=== PATIENT | male | born 1940 | race Caucasian/White ===

== ENCOUNTER 2016-05-08 12:48 | Inpatient (IN) | payer MEDICARE ==
[~2016-05-08] VITALS: Ht 172.7 cm; Wt 66.2 kg
[~2016-05-08 12:48] MED LIST: ATOR10 PO; COUM5TAB PO; COUM7.5T PO; DILT120C9 PO; DRIS8000 PO; FLUT50SP; IRON28TA PO; LORA.5 PO; MINO10 PO; OMEGCAP21 PO; OXYC1SOL5 PO; PROS5TAB2 PO; SENITAB PO; TAMS0.4C67 PO; VITA400C70 PO
[2016-05-10] VITALS (7 sets, daily range): BP systolic 119–190; BP diastolic 53–85; PULSE 61–72; RESP 16–20; TEMP 97.6–98.3; O2SAT 93–97
[2016-05-10] MEDS ORDERED: SODIUM CHLOR 0.9% 1000 ML INJ 1,000 ML IV PRN ×3 (09:54)
[2016-05-10 09:58] LABS: BASOPHIL # 0.1 TH/MM3 (0-0.2); BASOPHIL % 0.6 % (0.0-2.0); EOSINOPHIL # 0.3 TH/MM3 (0-0.4); EOSINOPHIL % 2.5 % (0.0-4.0); HEMATOCRIT 25.3 % (39.0-51.0); HEMO FLAGS DIFF FINAL; LYMPHOCYTE # 0.9 TH/MM3 (1.0-4.8); MEAN CELL VOLUME 93.8 FL (80.0-100.0); MEAN CORPUSCULAR HEMOGLOBIN 32.5 PG (27.0-34.0); MEAN CORPUSCULAR HGB CONC 34.7 % (32.0-36.0); MONO % 10.8 % (0.0-8.0); NEUT % 77.1 % (16.0-70.0); PLATELET COUNT 369 TH/MM3 (150-450); RED CELL DISTRIBUTION WIDTH 14.1 % (11.6-17.2); WHITE BLOOD COUNT 10.4 TH/MM3 (4.0-11.0)
[2016-05-10] MEDS ORDERED: MANNITOL 12.5 GM/50 ML VIAL IV PRN (10:00)
[2016-05-10] MEDS ORDERED: ONDANSETRON HCL 4 MG/2 ML VIAL IV PRN (10:00)
[2016-05-10] MEDS ORDERED: ALBUMIN HUMAN 25% 25 GM/100 ML BAGP IV PRN (10:00)
[2016-05-10] MEDS ORDERED: ACETAMINOPHEN 325 MG TAB PO PRN (10:00)
[2016-05-10] MEDS ORDERED: SODIUM CHLORIDE 0.9% FLUSH 5 ML FLUSH IVF PRN ×2 (10:00→12:30)
[2016-05-10] MEDS ORDERED: diphenhydrAMINE HCL 25 MG CAP PO PRN (10:00)
[2016-05-10] MEDS ORDERED: NITROGLYCERIN 0.4 MG SL 25 TABS/BTL SL PRN (10:00)
[2016-05-10] MEDS ORDERED: cloNIDine HCL 0.1 MG TAB PO PRN (10:00)
[2016-05-10] MEDS ORDERED: HEPARIN SODIUM - IV 10,000 UNITS/10 ML VIAL IVF PRN ×2 (10:00→12:30)
[2016-05-10] MEDS ORDERED: GELATIN 12 MM/7 MM FOAM TOP PRN (10:00)
[2016-05-10 10:07] LABS: BICARBONATE 30.5 MEQ/L (21.0-32.0)
[2016-05-10 10:13] LABS: APTT (PATIENT) 28.2 SEC (24.3-30.1); INTERNATIONAL NORMALIZED RATIO 1.1 RATIO; PROTHROMBIN TIME - PATIENT 11.8 SEC (9.8-11.6)
[2016-05-10] MEDS: LISINOPRIL 20 MG TAB PO SCH ×2 (10:45→20:34)
[2016-05-10] MEDS: FINASTERIDE 5 MG TAB PO SCH (10:45)
[2016-05-10] MEDS: ATORVASTATIN 10 MG TAB PO SCH (10:45)
[2016-05-10] MEDS ORDERED: SODIUM CHLORIDE FLUSH PRN IVF (10:45)
[2016-05-10] MEDS: CHOLECALCIFEROL (VIT D3) 1000 UNIT TAB PO SCH (10:45)
[2016-05-10] MEDS: TAMSULOSIN HCL 0.4 MG CAP PO SCH (10:45)
--- NOTE | 2016-05-10 10:48 | PD.CONS ---
[facility] Service Nephrology Reason for Consult ESRD on dialysis. To convert from PD to HD Primary Care Physician Nikolai Carrasquillo M.D. History of Present Illness The patient is a 75 yo [place] male who is known to our services for ESRD. He has been on peritoneal dialysis for the past year and a half. He has has difficulties meeting clearances and has developed edema that has become refractory to Extraneal PD fluids. He has been counselled in great detail regarding his status and it has mutually agreed that he should be converted to hemodialysis. We are consulted for this conversion. Pending PC today with subsequent 1st session of HD today. The patient offers no complaints at this time. (Isis Herman) Past Family Social History Allergies: Coded Allergies: No Known Allergies (Verified , 01/13/16) Past Medical History End-stage renal disease failed PD and now converting to HD Hypertension Anemia renal disease. 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 Placement of a peritoneal dialysis catheter. Reported Medications Reported Meds & Active Scripts Active Lorazepam 0.5 Mg Tab 0.5 Mg PO Q8H PRN Oxycodone/Acetaminophen 5 mg/325 mg 5 mg/325 mg Tab 1 Tab PO Q6H PRN Reported Proscar (Finasteride) 5 Mg Tab 5 Mg PO DAILY Coumadin 7.5 mg (Warfarin Sodium) Warfarin Sodium 7.5 mg Tab 7.5 Mg PO MOWEFR@16 Loniten 10 Mg Tab (Minoxidil) 10 Mg Tab 5 Mg PO BID Vitamin E-400 (Vitamin E) 400 Unit Cap 400 Unit PO DAILY Iron (Ferrous Sulfate) 28 Mg Tab 28 Mg PO DAILY Flomax (Tamsulosin HCl) 0.4 Mg Cap 0.4 Mg PO DAILY Vitamin D (Ergocalciferol) 8,000 Mg/Ml Gabby 2,000 Units PO BID Senior Multivitamin Plus (Multiple Vitamins W/ Minerals) Plus Tab 1 Tab PO DAILY Hm [place]-3-6-9 Fatty Acid ([place]-3/[place]-6/[place]-9 Fatty Acids) Cap 1 PO TID Fluticasone Propionate (Nasal) 50 Mcg Spr Coumadin 5 mg (Warfarin Sodium) 5 Mg Tab 5 Mg PO SUTUTHSA Lipitor (Atorvastatin Calcium) 10 Mg Tab 10 Mg PO HS Diltiazem Hcl (Diltiazem HCl) 120 Mg Tab 120 Mg PO DAILY Active Ordered Medications Current Medications Medications (Trade) Dose Ordered Sig/Terra Route Start Time Stop Time Status Last Admin (NS 1000 ml Inj) 1,000 ml @ 0 mls/hr Q0M PRN IV 05/10/16 09:54 Heparin Sodium (Porcine) 8000 units 8,000 units UNSCH PRN IVF 05/10/16 10:00 Sodium Chloride 1,000 ml @ 200 mls/hr Q5H PRN IV 05/10/16 09:54 (NS 1000 ml Inj) 1,000 ml @ 0 mls/hr Q0M PRN IV 05/10/16 09:54 (Mannitol Inj) 12.5 gm UNSCH PRN IV 05/10/16 10:00 (Albumin 25% Inj) 25 gm UNSCH PRN IV 05/10/16 10:00 (NS Flush) 5 ml UNSCH PRN IVF 05/10/16 10:00 (Heparin Inj) UNSCH PRN .XX 05/10/16 10:00 (Gentamicin (Dialysis) Inj) 20 mg UNSCH PRN IV 05/10/16 10:00 (Zofran Inj) 4 mg UNSCH PRN IV 05/10/16 10:00 (Tylenol) 650 mg UNSCH PRN PO 05/10/16 10:00 (Benadryl) 25 mg UNSCH PRN PO 05/10/16 10:00 (Nitrostat Sl) 0.4 mg UNSCH PRN SL 05/10/16 10:00 (Catapres) 0.1 mg UNSCH PRN PO 05/10/16 10:00 (Gelfoam 12 Mm/7 Mm Top) 1 foam UNSCH PRN TOP 05/10/16 10:00 Family History Noncontributory Social History Lives at home with Non-smoker No EtOH No illicit drug use (Isis Herman) Physical Exam Vital Signs Vital Signs Date Time Temp Pulse Resp B/P Pulse Ox O2 Delivery O2 Flow Rate FiO2 05/10/16 08:00 97.7 61 19 182/83 96 Physical Exam GENERAL: Laying in bed. NAD SKIN: Warm and dry. HEAD: Atraumatic. Normocephalic. EYES: Pupils equal and round. No scleral icterus. No injection or drainage. ENT: No nasal bleeding or discharge. Mucous membranes pink and moist. NECK: Trachea midline. No JVD. CARDIOVASCULAR: Regular rate and rhythm. RESPIRATORY: No accessory muscle use. Clear to auscultation. Breath sounds equal bilaterally. GASTROINTESTINAL: Abdomen soft, non-tender, nondistended. Hepatic and splenic margins not palpable. MUSCULOSKELETAL: Extremities without clubbing, cyanosis. 2+ pitting edema BLE to knees. NEUROLOGICAL: Awake and alert. No obvious cranial nerve deficits. Normal speech. PSYCHIATRIC: Appropriate mood and affect; insight and judgment normal. Laboratory Laboratory Tests Test 05/10/16 09:21 White Blood Count 10.4 Red Blood Count 2.70 Hemoglobin 8.8 Hematocrit 25.3 Mean Corpuscular Volume 93.8 Mean Corpuscular Hemoglobin 32.5 Mean Corpuscular Hemoglobin 34.7 Concent Red Cell Distribution Width 14.1 Platelet Count 369 Mean Platelet Volume 8.2 Neutrophils (%) (Auto) 77.1 Lymphocytes (%) (Auto) 9.0 Monocytes (%) (Auto) 10.8 Eosinophils (%) (Auto) 2.5 Basophils (%) (Auto) 0.6 Neutrophils # (Auto) 8.0 Lymphocytes # (Auto) 0.9 Monocytes # (Auto) 1.1 Eosinophils # (Auto) 0.3 Basophils # (Auto) 0.1 CBC Comment DIFF FINAL Differential Comment Prothrombin Time 11.8 Prothromb Time International 1.1 Ratio Activated Partial 28.2 Thromboplast Time Sodium Level 131 Potassium Level 4.0 Chloride Level 91 Carbon Dioxide Level 30.5 Anion Gap 10 Blood Urea Nitrogen 85 Creatinine 6.63 Estimat Glomerular Filtration 8 Rate Random Glucose 126 Calcium Level 9.8 Phosphorus Level 3.3 Albumin 2.6 (Isis Herman) Result Diagram: 05/10/1692005/10/16920 Assessment and Plan Problem List: (1) ESRD (end stage renal disease) on dialysis Plan: Plan for PC placement today with 1st HD session this afternoon. Will have 2nd HD tomorrow Pt has requested TTS schedule, but at this time we only have MWF open for 2nd shift as per our outpatient RN If tolerates HD well in house, will plan on D/C after HD tomorrow and resume MWF schedule as outpatient. Discussed risks and benefits of permacath placement as well as hemodialysis at length with the patient and his . He is in agreement to proceed. Medications should be adjusted for the patient's ESRD. Avoid gadolinium (2) HTN (hypertension) Plan: Continue on home medications (3) Diabetes Plan: Mgmt as per primary (4) Anemia Plan: Pending CBC. Epo and Fe as indicated (Isis Herman) Assessment and Plan The exam, history, and the medical decision-making described in the above note were completed with the assistance of the PAFidel. I reviewed and agree with the findings presented.. (Danita Maria MD) Problem Qualifiers (1) HTN (hypertension): Qualified Code: I10 - Essential hypertension (2) Diabetes: Qualified Code: E11.8 - Type 2 diabetes mellitus with complication, without long-term current use of insulin Isis Herman May 10, 2016 10:48 Danita Maria MD May 11, 2016 12:33
[2016-05-10] MEDS ORDERED: ceFAZolin 2 GM PREMIX 50 ML IV SCH (11:00)
[2016-05-10] MEDS ORDERED: VANCOMYCIN INJ 1,000 MG in SODIUM CHLOR 0.9% 250 ML INJ 250 ML IV SCH (11:00)
[2016-05-10] MEDS ORDERED: MIDAZOLAM HCL 5 MG/5 ML VIAL ONE (11:40)
[2016-05-10] MEDS ORDERED: fentaNYL CITRATE 250 MCG/5 ML AMP ONE (11:41)
[2016-05-10] MEDS ORDERED: LIDOCAINE 1%/EPINEPHrine 1:100,000 SOLN 20 ML VIAL ONE (11:45)
--- NOTE | 2016-05-10 12:19 | PD.RAD ---
Post Procedure Progress Note Pre Procedure Diagnosis: (1) Chronic renal failure Post Procedure Diagnosis: (1) Chronic renal failure Procedure Date: May 10, 2016 Supervising Radiologist: Michael Bhatt Proceduralist/Assist: Bhupendra Franks RT(R), RT Emelina(R)() Anesthesia: Conscious Sedation Plan of Activity Patient to Unit: Nursing Unit Patient Condition: Good See PACS Report for procedural detail/treatment Central Venous Access Device Procedure 1 Right Internal Jugular Hemodialysis Catheter Tunneled Placement dual lumen Michael Bhatt MD May 10, 2016 12:19
[2016-05-10] MEDS: CALCIUM ACETATE 667 MG CAP PO SCH ×2 (13:00→18:36)
--- NOTE | 2016-05-10 13:34 | HHI.HP ---
HPI Service [facility] Hospitalists Primary Care Physician Nikolai Carrasquillo M.D. Admission Diagnosis Chief Complaint: ESRD on PD Need conversion to HD Travel History International Travel<30 Days: No Contact w/Intl Traveler <30 Da: No Traveled to Known Affected Are: No History of Present Illness Pt is a 75 y/o M with h/o ESRD on PD, HTN, and DM. Pt admitted to hospital per his Manager Card Dr. Marcos Maria to convert from PD to HD. He has been on peritoneal dialysis for the past year and a half. He has has difficulties meeting clearances and has developed edema that has become refractory to Extraneal PD fluids. Pt has been admitted for placement of PermCath and to initiate HD. Pt has developed b/l LE edema. Pt denies SOB. Review of Systems Constitutional: DENIES: Diaphoretic episodes, Fatigue, Fever, Weight gain, Weight loss, Chills, Dizziness, Change in appetite, Night Sweats Endocrine: DENIES: Heat/cold intolerance, Polydipsia, Polyuria, Polyphagia Eyes: DENIES: Blurred vision, Diplopia, Eye inflammation, Eye pain, Vision loss , Photosensitivity, Double Vision Ears, nose, mouth, throat: DENIES: Tinnitus, Hearing loss, Vertigo, Nasal discharge, Oral lesions, Throat pain, Hoarseness, Ear Pain, Running Nose, Epistaxis, Sinus Pain, Toothache, Odynophagia Respiratory: DENIES: Apneas, Cough, Snoring, Wheezing, Hemoptysis, Sputum production, Shortness of breath Cardiovascular: DENIES: Chest pain, Palpitations, Syncope, Dyspnea on Exertion , PND, Lower Extremity Edema, Orthopnea, Claudication Gastrointestinal: DENIES: Abdominal pain, Black stools, Bloody stools, BRB per rectum, Constipation, Diarrhea, GERD, Nausea, Reflux, Vomiting, Difficulty Swallowing, Anorexia Genitourinary: DENIES: Urinary frequency, Urinary incontinence, Urgency, Hematuria, Dysuria, Nocturia Musculoskeletal: DENIES: Joint pain, Muscle aches, Stiffness, Joint Swelling, Back pain, Neck pain Integumentary: DENIES: Abnormal pigmentation, Nail changes, Pruritus, Rash Hematologic/lymphatic: DENIES: Bruising, Lymphadenopathy Immunologic/allergic: DENIES: Eczema, Urticaria Neurologic: DENIES: Abnormal gait, Headache, Localized weakness, Paresthesias, Seizures, Speech Problems, Tremor, Poor Balance Psychiatric: DENIES: Anxiety, Confusion, Mood changes, Depression, Hallucinations, Agitation, Suicidal Ideation, Homicidal Ideation, Delusions, History of Bipolar, History of Schizophrenia Past Family Social History Past Medical History End-stage renal disease failed PD and now converting to HD Hypertension Atrial fibrillation Anemia renal disease. Diabetes mellitus Coronary artery disease Dyslipidemia Mild peripheral vascular disease by Doppler by history Hyperphosphatemia BPH Previous left renal cell carcinoma status post cryoablation in 2015 Past Surgical History Appendectomy splenectomy Placement of a peritoneal dialysis catheter. Reported Medications Reported Meds & Active Scripts Active Lorazepam 0.5 Mg Tab 0.5 Mg PO Q8H PRN Oxycodone/Acetaminophen 5 mg/325 mg 5 mg/325 mg Tab 1 Tab PO Q6H PRN Reported Proscar (Finasteride) 5 Mg Tab 5 Mg PO DAILY Coumadin 7.5 mg (Warfarin Sodium) Warfarin Sodium 7.5 mg Tab 7.5 Mg PO MOWEFR@16 Loniten 10 Mg Tab (Minoxidil) 10 Mg Tab 5 Mg PO BID Vitamin E-400 (Vitamin E) 400 Unit Cap 400 Unit PO DAILY Iron (Ferrous Sulfate) 28 Mg Tab 28 Mg PO DAILY Flomax (Tamsulosin HCl) 0.4 Mg Cap 0.4 Mg PO DAILY Vitamin D (Ergocalciferol) 8,000 Mg/Ml Gabby 2,000 Units PO BID Senior Multivitamin Plus (Multiple Vitamins W/ Minerals) Plus Tab 1 Tab PO DAILY Hm [place]-3-6-9 Fatty Acid ([place]-3/[place]-6/[place]-9 Fatty Acids) Cap 1 PO TID Fluticasone Propionate (Nasal) 50 Mcg Spr Coumadin 5 mg (Warfarin Sodium) 5 Mg Tab 5 Mg PO SUTUTHSA Lipitor (Atorvastatin Calcium) 10 Mg Tab 10 Mg PO HS Diltiazem Hcl (Diltiazem HCl) 120 Mg Tab 120 Mg PO DAILY Allergies: Coded Allergies: No Known Allergies (Verified , 01/13/16) Family History Non-contributory Social History - No tobacco - No alcohol - No illicit street drugs Physical Exam Vital Signs Vital Signs Date Time Temp Pulse Resp B/P Pulse Ox O2 Delivery O2 Flow Rate FiO2 05/10/16 12:45 66 16 190/77 94 05/10/16 12:30 97.6 66 16 186/79 93 05/10/16 12:30 97.6 72 18 186/79 94 05/10/16 12:00 98.0 67 20 175/85 97 05/10/16 08:00 97.7 61 19 182/83 96 Physical Exam GENERAL: This is a well-nourished, well-developed patient, in no apparent distress. SKIN: No rashes, ecchymoses or lesions. Cool and dry. HEAD: Atraumatic. Normocephalic. No temporal or scalp tenderness. EYES: Pupils equal round and reactive. Extraocular motions intact. No scleral icterus. No injection or drainage. ENT: Nose without bleeding, purulent drainage or septal hematoma. Throat without erythema, tonsillar hypertrophy or exudate. Uvula midline. Airway patent. NECK: Trachea midline. No JVD or lymphadenopathy. Supple, nontender, no meningeal signs. CARDIOVASCULAR: Regular rate and rhythm without murmurs, gallops, or rubs. RESPIRATORY: Clear to auscultation. Breath sounds equal bilaterally. No wheezes , rales, or rhonchi. GASTROINTESTINAL: Abdomen soft, non-tender, nondistended. No hepato-splenomegaly , or palpable masses. No guarding. MUSCULOSKELETAL: Extremities without clubbing, cyanosis, or edema. No joint tenderness, effusion, or edema noted. No calf tenderness. Negative Homans sign bilaterally. NEUROLOGICAL: Awake and alert. Cranial nerves II through XII intact. Motor and sensory grossly within normal limits. Five out of 5 muscle strength in all muscle groups. Normal speech. Laboratory Laboratory Tests Test 05/10/16 09:21 White Blood Count 10.4 Red Blood Count 2.70 Hemoglobin 8.8 Hematocrit 25.3 Mean Corpuscular Volume 93.8 Mean Corpuscular Hemoglobin 32.5 Mean Corpuscular Hemoglobin 34.7 Concent Red Cell Distribution Width 14.1 Platelet Count 369 Mean Platelet Volume 8.2 Neutrophils (%) (Auto) 77.1 Lymphocytes (%) (Auto) 9.0 Monocytes (%) (Auto) 10.8 Eosinophils (%) (Auto) 2.5 Basophils (%) (Auto) 0.6 Neutrophils # (Auto) 8.0 Lymphocytes # (Auto) 0.9 Monocytes # (Auto) 1.1 Eosinophils # (Auto) 0.3 Basophils # (Auto) 0.1 CBC Comment DIFF FINAL Differential Comment Prothrombin Time 11.8 Prothromb Time International 1.1 Ratio Activated Partial 28.2 Thromboplast Time Sodium Level 131 Potassium Level 4.0 Chloride Level 91 Carbon Dioxide Level 30.5 Anion Gap 10 Blood Urea Nitrogen 85 Creatinine 6.63 Estimat Glomerular Filtration 8 Rate Random Glucose 126 Calcium Level 9.8 Phosphorus Level 3.3 Albumin 2.6 Result Diagram: 05/10/16 0921 05/10/16920 Septic Shock Reassessment Heart: Regular rate and rhythm Lungs: Clear Skin: Warm Peripheral Pulses: Bounding Right Radial Bounding Left Radial Bounding Right Popliteal Bounding Left Popliteal Bounding Right Dorsalis Pedis Bounding Left Dorsalis Pedis Bounding Right Posterior Tibial Bounding Left Posterior Tibial Capillary Refill: Brisk Assessment and Plan Problem List: (1) ESRD (end stage renal disease) on dialysis Status: Acute Plan: - Comgmt with Nephrology - Pt admitted for conversion from PD to HD - Pt underwent placement of PermCath (05/10/16) - Pt underwent first HD 05/10 and will have second session 05/11 (2) HTN (hypertension) Status: Chronic Plan: - hydralazine, lisinopril - will need to clarify medication list with pt - outpt medication list are in conflict (3) Diabetes Status: Chronic Plan: - SSI (4) BPH (benign prostatic hyperplasia) Status: Chronic Plan: - proseron, flotanvi Physician Certification 2 Midnight Certification Type: Admission for Inpatient Services Order for Inpatient Services The services are ordered in accordance with Medicare regulations or non- Medicare payer requirements, as applicable. In the case of services not specified as inpatient-only, they are appropriately provided as inpatient services in accordance with the 2-midnight benchmark. Estimated LOS (days): 3 3 days is the estimated time the patient will need to remain in the hospital, assuming treatment plan goals are met and no additional complications. Post-Hospital Plan: Not yet determined Problem Qualifiers (1) HTN (hypertension): Qualified Code: I10 - Essential hypertension (2) Diabetes: Qualified Code: E11.8 - Type 2 diabetes mellitus with complication, without long-term current use of insulin (3) BPH (benign prostatic hyperplasia): Qualified Code: N40.0 - Benign prostatic hyperplasia, presence of lower urinary tract symptoms unspecified, unspecified morphology Vasile Bobby DO May 10, 2016 13:34
[2016-05-10] MEDS ORDERED: PROS5TAB PO (13:39)
[2016-05-10] MEDS ORDERED: COUM7.5T PO (13:39)
[2016-05-10] MEDS ORDERED: COUM5TAB PO (13:39)
[2016-05-10] MEDS ORDERED: PERC5TAB12 PO (13:39)
[2016-05-10] MEDS ORDERED: FLUT50SP EACH NARE (13:39)
[2016-05-10] MEDS ORDERED: LIPI10TA PO (13:39)
[2016-05-10] MEDS ORDERED: LONITEN PO (13:39)
[2016-05-10] MEDS ORDERED: DILT120C15 PO (13:39)
[2016-05-10] MEDS ORDERED: ERGO8000S PO (13:39)
[2016-05-10] MEDS ORDERED: OMEGCAP19 PO (13:39)
[2016-05-10] MEDS ORDERED: MULTTAB62 PO (13:39)
[2016-05-10] MEDS ORDERED: TAMS5CAP PO (13:39)
[2016-05-10] MEDS ORDERED: LORA-373 PO (13:39)
[2016-05-10] MEDS ORDERED: IRON28TA PO (13:39)
[2016-05-10] MEDS ORDERED: VITA400C2 PO (13:39)
[2016-05-10] MEDS: HEPARIN SODIUM - IV 10,000 UNITS/10 ML VIAL PRN (15:59)
[2016-05-10] MEDS: GENTAMICIN SULFATE (DIALYSIS USE ONLY) 20 MG/2 ML VIAL IV PRN (15:59)
[2016-05-10] MEDS: SODIUM CHLORIDE FLUSH BID IVF SCH (20:33)
[2016-05-10] MEDS: hydrALAZINE HCL 25 MG TAB PO SCH (20:34)
[2016-05-10] MEDS: LORazepam 0.5 MG TAB PO PRN (20:35)
[2016-05-11] VITALS: BP 113/56; PULSE 65; RESP 20; TEMP 98.9; O2SAT 95
[2016-05-11] MEDS: LORazepam 0.5 MG TAB PO PRN (03:54)
[2016-05-11 04:00] VITALS: BP 104/62; PULSE 63; RESP 20; TEMP 98.7; O2SAT 95
[2016-05-11] MEDS: hydrALAZINE HCL 25 MG TAB PO SCH ×2 (05:03→12:17)
[2016-05-11 05:46] LABS: HEMATOCRIT 24.2 % (39.0-51.0); MEAN CELL VOLUME 93.8 FL (80.0-100.0); MEAN CORPUSCULAR HEMOGLOBIN 32.3 PG (27.0-34.0); MEAN CORPUSCULAR HGB CONC 34.4 % (32.0-36.0); PLATELET COUNT 360 TH/MM3 (150-450); RED BLOOD COUNT 2.57 MIL/MM3 (4.50-5.90); RED CELL DISTRIBUTION WIDTH 14.1 % (11.6-17.2); REVIEW FLAG FINAL; WHITE BLOOD COUNT 8.2 TH/MM3 (4.0-11.0)
[2016-05-11 06:08] LABS: BICARBONATE 31.2 MEQ/L (21.0-32.0); POTASSIUM 3.9 MEQ/L (3.5-5.1)
[2016-05-11 08:00] VITALS: BP 124/61; PULSE 62; RESP 17; TEMP 97.9; O2SAT 94
[2016-05-11] MEDS ORDERED: DILTIAZEM-CD 120 MG CAP ER PO SCH (09:00)
[2016-05-11] MEDS: LISINOPRIL 20 MG TAB PO SCH (09:00)
[2016-05-11] MEDS ORDERED: FLUTICASONE PROPIONATE 50 MCG/ACT 16 GM NASAL SPRAY EACH NARE SCH (09:00)
[2016-05-11] MEDS: FINASTERIDE 5 MG TAB PO SCH (09:34)
[2016-05-11] MEDS: TAMSULOSIN HCL 0.4 MG CAP PO SCH (09:34)
[2016-05-11] MEDS: ATORVASTATIN 10 MG TAB PO SCH (09:34)
[2016-05-11] MEDS: CALCIUM ACETATE 667 MG CAP PO SCH ×3 (09:34→16:45)
[2016-05-11] MEDS: CHOLECALCIFEROL (VIT D3) 1000 UNIT TAB PO SCH (09:34)
[2016-05-11] MEDS: SODIUM CHLORIDE FLUSH BID IVF SCH (09:35)
[2016-05-11] MEDS ORDERED: INFLUENZA VIRUS VACCINE (QUADRIVALENT) 0.5 ML SYR IM ONE (10:00)
--- NOTE | 2016-05-11 10:04 | HHI.NPPN ---
Subjective History of Present Illness The patient is a 75 yo [place] male who is known to our services for ESRD. He has been on peritoneal dialysis for the past year and a half. He has has difficulties meeting clearances and has developed edema that has become refractory to Extraneal PD fluids. He has been counselled in great detail regarding his status and it has mutually agreed that he should be converted to hemodialysis. We are consulted for this conversion. The patient offers no complaints at this time. Interval History s/p PC placement and 1st HD 05/10 Pending 2nd session 05/11. Has reinforced dressing covering RIJ. Bleeding from site last night. Pt quite anxious to go home. (Isis Herman) Objective Data Data 05/10/16 05/11/16 19:00 07:00 Intake Total 0 ml 360 ml Output Total 2000 ml 275 ml Balance -2000 ml 85 ml Intake Oral 0 ml 360 ml Output Urine Total 275 ml Hemodialysis 2000 ml # Voids 0 # Bowel Movements 0 0 Vital Signs Date Time Temp Pulse Resp B/P Pulse Ox O2 Delivery O2 Flow Rate FiO2 05/11/16 08:00 97.9 62 17 124/61 94 05/11/16 04:00 98.7 63 20 104/62 95 05/11/16 00:00 98.9 65 20 113/56 95 05/10/16 20:00 98.3 64 20 119/53 94 05/10/16 18:22 94 21 05/10/16 18:00 97.6 66 17 129/57 97 05/10/16 12:45 66 16 190/77 94 05/10/16 12:30 97.6 66 16 186/79 93 05/10/16 12:30 97.6 72 18 186/79 94 05/10/16 12:00 98.0 67 20 175/85 97 (Isis Herman) -: 05/11/16 0454 05/11/16 0454 Tubes & Lines: Perma-Cath Medication Review Current Medications Medications (Trade) Dose Ordered Sig/Terra Route Start Time Stop Time Status Last Admin (NS 1000 ml Inj) 1,000 ml @ 0 mls/hr Q0M PRN IV 05/10/16 09:54 Heparin Sodium (Porcine) 8000 units 8,000 units UNSCH PRN IVF 05/10/16 10:00 Sodium Chloride 1,000 ml @ 200 mls/hr Q5H PRN IV 05/10/16 09:54 (NS 1000 ml Inj) 1,000 ml @ 0 mls/hr Q0M PRN IV 05/10/16 09:54 (Mannitol Inj) 12.5 gm UNSCH PRN IV 05/10/16 10:00 (Albumin 25% Inj) 25 gm UNSCH PRN IV 05/10/16 10:00 (NS Flush) 5 ml UNSCH PRN IVF 05/10/16 10:00 (Heparin Inj) UNSCH PRN .XX 05/10/16 10:00 05/10/16 15:59 (Gentamicin (Dialysis) Inj) 20 mg UNSCH PRN IV 05/10/16 10:00 05/10/16 15:59 (Zofran Inj) 4 mg UNSCH PRN IV 05/10/16 10:00 (Tylenol) 650 mg UNSCH PRN PO 05/10/16 10:00 05/11/16 03:54 (Benadryl) 25 mg UNSCH PRN PO 05/10/16 10:00 (Nitrostat Sl) 0.4 mg UNSCH PRN SL 05/10/16 10:00 (Catapres) 0.1 mg UNSCH PRN PO 05/10/16 10:00 (Gelfoam 12 Mm/7 Mm Top) 1 foam UNSCH PRN TOP 05/10/16 10:00 (NS Flush) 2 ml BID IVF 05/10/16 21:00 05/11/16 09:35 (NS Flush) 2 ml UNSCH PRN IVF 05/10/16 10:45 (Prinivil) 20 mg Q12HR PO 05/10/16 10:45 (Proscar) 5 mg DAILY PO 05/10/16 10:45 05/11/16 09:34 (Apresoline) 25 mg Q8HR PO 05/10/16 14:00 (Lipitor) 10 mg DAILY PO 05/10/16 10:45 05/11/16 09:34 (Vitamin D3) 2,000 units DAILY PO 05/10/16 10:45 05/11/16 09:34 (Flomax) 0.4 mg DAILY PO 05/10/16 10:45 05/11/16 09:34 (Phoslo) 667 mg TID PO 05/10/16 13:00 05/11/16 09:34 (NS Flush) UNSCH PRN IVF 05/10/16 12:30 (Heparin Inj) UNSCH PRN IVF 05/10/16 12:30 (Cardizem Cd) 120 mg DAILY PO 05/11/16 09:00 (Flonase Mario Spr) 1 spray DAILY EACH NARE 05/11/16 09:00 05/11/16 09:35 (Ativan) 0.5 mg Q8H PRN PO 05/10/16 17:15 05/11/16 03:54 (Flu (Quadrivalent) Vaccine Inj) 0.5 ml ONCE ONCE IM 05/11/16 10:00 05/11/16 10:01 (Isis Herman) Physical Exam General Appearance: No Acute Distress Appearance Remarks Sitting on edge of the bed. (Isis Herman) Eyes Eye Exam: Pupils Equal, Pupils Reactive (Isis Herman) Neck Neck Exam: Neck Supple, Trachea Midline Neck Remarks RIJ PC in place with large gauze covering. Dry, but sanguinous discharge underneath. (Isis Herman) Pulmonary Resp Exam: Clear Bilaterally, Breath Sounds Equal (Isis Herman) Cardiology CV Exam: Regular, Normal Sinus Rhythm (Isis Herman) Gastrointestinal/Abdomen GI Exam: Soft, Non-Tender GI Remarks PD cath in place with dressing (Isis Herman) Integumentary Skin Exam: Clear, Warm (Isis Herman) Extremeties Extremities Exam: Moderate Edema Extremeties Remarks Improved from yesterday, but still with 1+ pitting BLE R>L (Isis Herman ) Neurologic Neuro Exam: Alert, Awake, Oriented (Isis Herman) Psychiatric Psych Exam: Appropriate Responses (Isis Herman) Assessment/Plan Problem List: (1) ESRD (end stage renal disease) on dialysis Plan: s/p 1st HD yesterday. Pending 2nd session today. Tolerated well. Discussed dressing change with dialysis nurse. To contact me if any redness, drainage, signs of infection. After HD today, has been set up for outpatient HD for TTS 1st shift. Pt and aware of chair time. iPTH and Vit D within normal range. Medications should be adjusted for the patient's ESRD. Avoid gadolinium (2) HTN (hypertension) Plan: Continue on home medications (3) Diabetes Plan: Mgmt as per primary (4) Anemia Plan: Epo with HD today (Isis Herman) Plan Patient's volume status has improved and the patient is tolerating hemodialysis. Second treatment today. There has been some oozing at the PermCath site but if this resolves patient is clear for discharge today from a renal point of view. Outpatient dialysis has been set up. Discussed with patient and . The exam, history, and the medical decision-making described in the above note were completed with the assistance of the PAFidel. I reviewed and agree with the findings presented. I attest that I had a [id number] encounter with the patient on the same day, and personally performed and documented my assessment and findings in the medical record. (Danita Maria MD) Problem Qualifiers (1) HTN (hypertension): Qualified Code: I10 - Essential hypertension (2) Diabetes: Qualified Code: E11.8 - Type 2 diabetes mellitus with complication, without long-term current use of insulin Isis Herman May 11, 2016 10:04 Danita Maria MD May 11, 2016 12:34
[2016-05-11] MEDS ORDERED: EPOETIN ALFA 10,000 UNITS/ML VIAL IV ONE (10:15)
[2016-05-11 12:00] VITALS: BP 138/62; PULSE 68; RESP 18; TEMP 97.7; O2SAT 94
[2016-05-11] MEDS ORDERED: EPOETIN ALFA 20,000 UNITS/ML VIAL SQ ONE (14:00)
--- NOTE | 2016-05-11 14:38 | HHI.PR ---
Subjective Remarks No new complaints. Pt is eager for discharge to home. Objective Vitals Vital Signs Date Time Temp Pulse Resp B/P Pulse Ox O2 Delivery O2 Flow Rate FiO2 05/11/16 12:00 97.7 68 18 138/62 94 05/11/16 08:00 97.9 62 17 124/61 94 05/11/16 04:00 98.7 63 20 104/62 95 05/11/16 00:00 98.9 65 20 113/56 95 05/10/16 20:00 98.3 64 20 119/53 94 05/10/16 18:22 94 21 05/10/16 18:00 97.6 66 17 129/57 97 05/10/16 05/10/16 05/11/16 14:59 22:59 06:59 Intake Total 0 ml 240 ml 120 ml Output Total 2075 ml 200 ml Balance 0 ml -1835 ml -80 ml Intake Oral 0 ml 240 ml 120 ml Output Urine Total 75 ml 200 ml Hemodialysis 2000 ml # Voids 0 # Bowel Movements 0 0 0 Result Diagram: 05/11/16 0454 05/11/16 0454 Objective Remarks GENERAL: This is a well-nourished, well-developed patient, in no apparent distress. CARDIOVASCULAR: Regular rate and rhythm without murmurs, gallops, or rubs. RESPIRATORY: Clear to auscultation. Breath sounds equal bilaterally. No wheezes , rales, or rhonchi. GASTROINTESTINAL: Abdomen soft, non-tender, nondistended. Normal active bowel sounds MUSCULOSKELETAL: Extremities without clubbing, cyanosis, or edema. NEURO: Alert & Oriented x4 to person, place, time, situation. Moves all ext x4 A/P Problem List: (1) ESRD (end stage renal disease) on dialysis Status: Acute Plan: - Comgmt with Nephrology - Pt admitted for conversion from PD to HD - Pt underwent placement of PermCath (05/10/16) - Pt underwent HD 05/10 & 05/11 - some bleeding from placement of PermCath - now appears to be stopped with pressure dressing, but IR will access prior to discharge this evening. - some confusion regarding pt's outpt BP regimen. I discussed this with his Press Operator, Dr. Maria, and he will review list again at pt's next f/u visit - for now pt to continue with list of outpt medication that he presented on arrival to [facility] (2) HTN (hypertension) Status: Chronic Plan: - continue outpt regimen - see above (3) Diabetes Status: Chronic Plan: - SSI (4) BPH (benign prostatic hyperplasia) Status: Chronic Plan: - proscar, flomax Problem Qualifiers (1) HTN (hypertension): Qualified Code: I10 - Essential hypertension (2) Diabetes: Qualified Code: E11.8 - Type 2 diabetes mellitus with complication, without long-term current use of insulin (3) BPH (benign prostatic hyperplasia): Qualified Code: N40.0 - Benign prostatic hyperplasia, presence of lower urinary tract symptoms unspecified, unspecified morphology Vasile Bobby DO May 11, 2016 14:38 Vasile Bobby DO May 11, 2016 14:38
[2016-05-11] MEDS: HEPARIN SODIUM - IV 10,000 UNITS/10 ML VIAL PRN (16:46)
[2016-05-11] MEDS: GENTAMICIN SULFATE (DIALYSIS USE ONLY) 20 MG/2 ML VIAL IV PRN (16:46)
--- NOTE | 2016-05-12 10:23 | RADRPT ---
EXAM DATE/TIME: 05/10/2016 11:44 [facility] COMPARISON: No previous studies available for comparison. INDICATIONS : Patient with history of end stage renal disease in need of permcath placement for hemodialysis. MEDICAL HISTORY : End-stage renal disease failed PD and now converting to HD Hypertension Anemia renal disease. Diabetes mellitus Coronary artery disease Dyslipidemia Mild peripheral vascular disease by Doppler by history Hyperphosphatemia BPH Previous left renal cell carcinoma status post cryoablation in 2014 SURGICAL HISTORY : Appendectomy Mention of splenectomy in the records. Placement of a peritoneal dialysis catheter. ENCOUNTER: Initial ACUITY: >1 year PAIN SCORE: 0/10 FLUORO TIME: 30 minutes SEDATION TIME: 30 minutes ACCESS: Right internal jugular vein SEDATION: 1.) 2 mg midazolam (Versed) IV 2.) 100 mcg fentanyl (Sublimaze) IV Prophylactic antibiotics were administered with appropriate pre-procedure timing. Vancomycin within 2 hours of procedure, Ancef (or alternative) within 1 hour of procedure. DEVICE: 1. 15 Thai dual lumen 23 cm Permacath PROCEDURE : 1. Ultrasound-guided venipuncture. 2. PermaCath placement. 3. Conscious sedation with continuous EKG and oximetry monitoring. The risks, benefits and alternatives to the procedure were explained and verbal and written consent w as obtained. The site was prepped in sterile fashion. Full sterile technique was used, including ca p, mask, sterile gloves and gown and a large sterile sheet. Hand hygiene and 2% chlorhexidine and/or betadine/alcohol prep was utilized per protocol for cutaneous antisepsis. The skin and subcutaneous tissues were infiltrated with local anesthetic solution. With ultrasound and fluoroscopic guidance a dermatotomy was created over the prescribed vein. A micr opuncture set was used to access the targeted vein and serial dilatation was performed to accept the prescribed length catheter. A subcutaneous tunnel was created in a retrograde fashion the catheter w as pulled through the tunnel. The catheter was flushed and assembled and locked with heparin. The c atheter was sutured in place. Conscious sedation was performed with the prescribed dosages and duration as above. The patient tole rated the procedure well and there were no complications. EKG and oximetry remained stable throughou t the procedure. The patient was sent to post anesthesia recovery in stable condition. CONCLUSION: Uncomplicated PermaCath placement as above. Michael Bhatt MD on May 12, 2016 at 10:21 Board Certified Radiologist. This report was verified electronically.
[2016-10-04] MEDS ORDERED: HYDR-3799 PO (15:40)
[2016-10-04] MEDS ORDERED: MULT1TAB PO (15:40)
[2016-10-05] MEDS ORDERED: FURO1TAB61 PO (08:53)
== END 2016-05-11 18:11 | disposition home or self-care (01) | DRG 682 ==
LOC: N07B 05-10 08:25
PROVIDERS: ADMIT Hospitalist; ATTEND Hospitalist
PROC: 05HM33Z Insertion of Infusion Device into Right Internal Jugular Vein, Percutaneous Approach (ICD-10-PCS; principal; 2016-05-10)
PROC: B513ZZA Fluoroscopy of Right Jugular Veins, Guidance (ICD-10-PCS; 2016-05-10)
PROC: 5A1D60Z (ICD-10-PCS; 2016-05-10)
DX: I12.0 Hypertensive chronic kidney disease with stage 5 chronic kidney disease or end stage renal disease (principal); N18.6 End stage renal disease; E11.22 Type 2 diabetes mellitus with diabetic chronic kidney disease; Z99.2 Dependence on renal dialysis; Z79.01 Long term (current) use of anticoagulants; D63.8 Anemia in other chronic diseases classified elsewhere; I25.10 Atherosclerotic heart disease of native coronary artery without angina pectoris; E78.5 Hyperlipidemia, unspecified; N40.0 Benign prostatic hyperplasia without lower urinary tract symptoms; Z85.528 Personal history of other malignant neoplasm of kidney; I73.9 Peripheral vascular disease, unspecified
CPT/HCPCS: 36558; 76937; 77001; 80069; 82306; 83970; 85025; 85027; 85610; 85730; 86803; 87340; 90935; 96374; 96375; 99152; 99153; C1750; C1769; J0690; J1580; J1644; J2250; J3010; Q4081

== ENCOUNTER 2016-06-15 09:25 | Observation (INO) | payer MEDICARE ==
[2016-06-15] VITALS (9 sets, daily range): BP systolic 126–172; BP diastolic 57–84; PULSE 65–95; RESP 17–20; TEMP 97.7–98.1; O2SAT 92–99
[~2016-06-15] VITALS: Ht 172.7 cm; Wt 70.0 kg
[~2016-06-15 09:25] MED LIST changes: -ATOR10 PO; +DILT120C15 PO; -DILT120C9 PO; -DRIS8000 PO; +ERGO8000S PO; -FLUT50SP; +FLUT50SP EACH NARE; +LIPI10TA PO; +LONITEN PO; +LORA-373 PO; -LORA.5 PO; -MINO10 PO; +MULTTAB62 PO; +OMEGCAP19 PO; -OMEGCAP21 PO; -OXYC1SOL5 PO; +PERC5TAB12 PO; +PROS5TAB PO; -PROS5TAB2 PO; -SENITAB PO; -TAMS0.4C67 PO; +TAMS5CAP PO; +VITA400C2 PO; -VITA400C70 PO
--- NOTE | 2016-06-15 09:39 | PD ---
HPI Chief Complaint: General Weakness Time Seen by Provider: 09:36 Travel History International Travel<30 days: No Contact w/Intl Traveler<30days: No Traveled to known affect area: No History of Present Illness HPI 75yo M with PMH of ESRD on HD, Afib on coumadin, NIDDM presents to the ED from hemodialysis center for hypotension. Pt was feeling generalized weakness and initially BP was about systolic 100 when he got to the HD center. They did 2 hours of hemodialysis but called [facility] to bring pt to ED when BP dropped to systolic 80s. When pt arrived, his VS was BP 127/61. HR 73. O2 sat 97%. Pt has a peritoneal catheter and states they took fluid from it today and it started to hurt. Denies any fever, chest pain, sob, n/v, diarrhea. Pt still urinates and currently undergoing hemodialysis and follows with green chain off bearer Dr. Maria. [facility]LY [facility] Past Medical History Atrial Fibrillation: Yes Cancer: No Cardiovascular Problems: Yes (A. FIB) High Cholesterol: Yes Chemotherapy: No Cerebrovascular Accident: No Diabetes: Yes Patient Takes Glucophage: No Diminished Hearing: No Endocrine: No Gastrointestinal Disorders: Yes (gastritis) Genitourinary: No Hepatitis: No Hiatal Hernia: No Hypertension: Yes Immune Disorder: No Musculoskeletal: Yes (scoliosis on right side) Neurologic: No Psychiatric: No Reproductive: No Respiratory: No Renal Failure: Yes (STAGE III) Thyroid Disease: No Tetanus Vaccination: Unknown Influenza Vaccination: Yes ?: Not Past Surgical History Abdominal Surgery: Yes (SPLEENECTOMY, LEFT HERNIA '79-80, peritoneal dialysis and hemodialysis) AICD: No Appendectomy: Yes Body Medical Devices: peritoneal tube Cardiac Surgery: No Ear Surgery: No Endocrine Surgery: No Eye Surgery: No Genitourinary Surgery: No Gynecologic Surgery: No Joint Replacement: No Pacemaker: No Thoracic Surgery: No Other Surgery: Yes Social History Alcohol Use: No Tobacco Use: No (1958) Substance Use: No Allergies-Medications (Allergen,Severity, Reaction): Coded Allergies: No Known Allergies (Verified , 06/15/16) Reported Meds & Prescriptions Reported Meds & Active Scripts Active Reported Claritin (Loratadine) 10 Mg Tab 10 Mg PO DAILY Warfarin 7.5 Mg Tab 7.5 Mg PO TUTHSA TAKE ONE TAB (7.5 MG) TUES, THURS, SAT Warfarin 5 Mg Tab 5 Mg PO SUMOWEFR TAKE 1 TAB (5MG) TUE, TUE, TUESDAY, TUESDAY Lasix (Furosemide) 40 Mg Tab 40 Mg PO BID Diphenhydramine (Diphenhydramine HCl) 25 Mg Tab 25 Mg PO Q6H PRN Vitamin E 400 Unit Cap 400 Units PO DAILY Flomax (Tamsulosin HCl) 0.4 Mg Cap 0.4 Mg PO DAILY Percocet (Oxycodone-Acetaminophen) 5-325 mg Tab 1 Tab PO Q6H PRN Multi-Vitamin/Minerals (Multiple Vitamins W/ Minerals) 1 Tab Tab 1 Tab PO DAILY [place] 3-6-9 Complex ([place] 3 Fatty Acids-[place] 6 FA) 1 Cap Cap 1 Cap PO TID Fluticasone Nasal [place] 50 Mcg/Act Naspr 50 Mcg EACH NARE DAILY 50 mcg/spray Proscar (Finasteride) 5 Mg Tab 5 Mg PO DAILY Do not crush. Iron (Ferrous Sulfate) 28 Mg Tab 45 Mg PO DAILY Lipitor (Atorvastatin Calcium) 10 Mg Tab 10 Mg PO HS Review of Systems Except as stated in HPI: all other systems reviewed are Neg Physical Exam Narrative GENERAL: 75yo M in mild distress. SKIN: Warm and dry. Hemodialysis catheter right chest. HEAD: Atraumatic. Normocephalic. NECK: Trachea midline. No JVD. CARDIOVASCULAR: Irregular rhythm. No murmur appreciated. RESPIRATORY: No accessory muscle use. Bilateral crackles lower lungs. GASTROINTESTINAL: Abdomen soft, +Diffuse ttp. +Paritoneal dialysis catheter in place. MUSCULOSKELETAL: No obvious deformities. No clubbing. No cyanosis. No edema. NEUROLOGICAL: Awake and alert. No obvious cranial nerve deficits. Motor grossly within normal limits. Normal speech. PSYCHIATRIC: Appropriate mood and affect; insight and judgment normal. Data Data Last Documented VS Vital Signs Date Time Temp Pulse Resp B/P Pulse Ox O2 Delivery O2 Flow Rate FiO2 06/15/16 11:41 65 17 149/66 99 Room Air 06/15/16 09:33 2 06/15/16 09:28 98.0 Orders Complete Blood Count With Diff (06/15/16 09:36) Comprehensive Metabolic Panel (06/15/16 09:36) Lipase (06/15/16 09:36) Electrocardiogram (06/15/16 ) Chest, Single Ap (06/15/16 ) Troponin I (06/15/16 09:36) Ct Abd/Pel W/O Iv Contrast (06/15/16 ) Orthostatic Blood Pressure (06/15/16 09:38) Morphine Inj (Morphine Inj) (06/15/16 12:00) Urinalysis - C+S If Indicated (06/15/16 11:59) Place In Observation (06/15/16 ) Vital Signs (Adult) MARIN.Q4H (06/15/16 12:20) Scd Bilateral/Knee High MARIN.QSHIFT (06/15/16 12:20) Activity Oob With Assistance (06/15/16 12:20) Diet Renal (06/15/16 Lunch) Admit Order (Ed Use Only) (06/15/16 12:22) Labs Laboratory Tests Test 06/15/16 09:55 White Blood Count 9.0 TH/MM3 Red Blood Count 3.05 MIL/MM3 Hemoglobin 9.9 GM/DL Hematocrit 29.4 % Mean Corpuscular Volume 96.6 FL Mean Corpuscular Hemoglobin 32.5 PG Mean Corpuscular Hemoglobin 33.6 % Concent Red Cell Distribution Width 15.3 % Platelet Count 398 TH/MM3 Mean Platelet Volume 8.0 FL Neutrophils (%) (Auto) 90.8 % Lymphocytes (%) (Auto) 5.1 % Monocytes (%) (Auto) 2.5 % Eosinophils (%) (Auto) 1.1 % Basophils (%) (Auto) 0.5 % Neutrophils # (Auto) 8.2 TH/MM3 Lymphocytes # (Auto) 0.5 TH/MM3 Monocytes # (Auto) 0.2 TH/MM3 Eosinophils # (Auto) 0.1 TH/MM3 Basophils # (Auto) 0.0 TH/MM3 CBC Comment DIFF FINAL Differential Comment Sodium Level 135 MEQ/L Potassium Level 4.4 MEQ/L Chloride Level 99 MEQ/L Carbon Dioxide Level 24.1 MEQ/L Anion Gap 12 MEQ/L Blood Urea Nitrogen 43 MG/DL Creatinine 4.29 MG/DL Estimat Glomerular Filtration 14 ML/MIN Rate Random Glucose 130 MG/DL Calcium Level 9.5 MG/DL Total Bilirubin 0.6 MG/DL Aspartate Amino Transf 27 U/L (AST/SGOT) Alanine Aminotransferase 16 U/L (ALT/SGPT) Alkaline Phosphatase 102 U/L Troponin I 0.06 NG/ML Total Protein 7.1 GM/DL Albumin 3.4 GM/DL Lipase 175 U/L [facility] Medical Decision Making Medical Screen Exam Complete: Yes Emergency Medical Condition: Yes Interpretation(s) EKG: Afib at 70bpm. Normal axis. Mild ST depression V5, V6. Differential Diagnosis Hypotension from hemodialysis vs. pancreatitis vs. colitis vs. SBP Narrative Course 75yo M with generalized weakness and sent from hemodialysis center for hypotension and bradycardia. Labs reviewed, no leukocytosis. H/H 9.9/29.4. Pt is at baseline. BUN/creatinine 43/4.29 which is also at baseline compare to . Troponin 0.06. CXR showed mild atelectasis at bases. Pt is very tender on abdominal exam. CTa/p showed splenectomy. Small amount of abdominal ascites. Peritoneal dialysis catheter. Discussed with nurse practitioner covering Dr. Maria who thinks that the abdominal pain may be related to the peritoneal flush today. States observation is not unreasonable. I reevaluated pt after morphine 2mg IV and pt is still very tender on abdominal exam. Will admit pt for intractable pain and pain management along with serial abdominal exam. Discussed with Dr. Hudson and accepted to his service. Diagnosis Primary Impression: Intractable abdominal pain Admitting Information Admitting Physician Requests: Observation Scripts Hydralazine 25 Mg Tab25 Mg PO BID #120 TAB Ref 0 Take with a meal Prov:Verito Gallagher 06/16/16 Lucrecia Munoz DO Jun 15, 2016 09:39
[2016-06-15] MEDS ORDERED: DIPH25TA2 PO (10:01)
[2016-06-15] MEDS ORDERED: HYDR25TA35 PO (10:09)
[2016-06-15] MEDS ORDERED: FURO1TAB60 PO (10:09)
[2016-06-15 10:17] LABS: AUTOMATED NEUTROPHIL # 8.2 TH/MM3 (1.8-7.7); BASOPHIL % 0.5 % (0.0-2.0); EOSINOPHIL # 0.1 TH/MM3 (0-0.4); EOSINOPHIL % 1.1 % (0.0-4.0); HEMATOCRIT 29.4 % (39.0-51.0); HEMO FLAGS DIFF FINAL; LYMPH % 5.1 % (9.0-44.0); LYMPHOCYTE # 0.5 TH/MM3 (1.0-4.8); MEAN CELL VOLUME 96.6 FL (80.0-100.0); MEAN CORPUSCULAR HEMOGLOBIN 32.5 PG (27.0-34.0); MEAN CORPUSCULAR HGB CONC 33.6 % (32.0-36.0); MONO % 2.5 % (0.0-8.0); NEUT % 90.8 % (16.0-70.0); PLATELET COUNT 398 TH/MM3 (150-450); RED BLOOD COUNT 3.05 MIL/MM3 (4.50-5.90); RED CELL DISTRIBUTION WIDTH 15.3 % (11.6-17.2)
[2016-06-15 10:38] LABS: ALKALINE PHOSPHATASE 102 U/L (45-117); ALT (GPT) 16 U/L (12-78); ANION GAP 12 MEQ/L (5-15); AST (GOT) 27 U/L (15-37); BICARBONATE 24.1 MEQ/L (21.0-32.0); BLOOD UREA NITROGEN 43 MG/DL (7-18); CHLORIDE 99 MEQ/L (98-107); GLOMERULAR FILTRATION RATE 14 ML/MIN (>89); SODIUM (NA) 135 MEQ/L (136-145); TOTAL BILIRUBIN ADULT 0.6 MG/DL (0.2-1.0)
[2016-06-15 10:39] LABS: POTASSIUM 4.4 MEQ/L (3.5-5.1)
--- NOTE | 2016-06-15 10:52 | RADRPT ---
EXAM DATE/TIME: 06/15/2016 09:44 [facility] COMPARISON: CT NEEDLE BIOPSY RENAL, LEFT, September 26, 2014, 11:46. CHEST SINGLE AP, January 13, 2016, 12:59. INDICATIONS : Patient states while he was at dialysis today his blood pressure dropped. MEDICAL HISTORY : Hypertension. A-fib SURGICAL HISTORY : None. ENCOUNTER: Initial ACUITY: 1 day PAIN SCORE: 7/10 LOCATION: Abdomen. FINDINGS: Portable AP view of the chest demonstrates a normal-sized cardiac silhouette with calcification of ao rta. Right IJ dialysis catheter is present with distal tip near the cavoatrial junction. Lungs are mi ldly underinflated with subsegmental atelectasis at the lung bases. No effusion, consolidation, or pn eumothorax is visualized. Bones demonstrate no acute finding. CONCLUSION: Mild atelectasis at the bases. Otherwise, no acute finding is identified. Willy Whitt MD on June 15, 2016 at 10:46 Board Certified Radiologist. This report was verified electronically.
--- NOTE | 2016-06-15 11:35 | RADRPT ---
EXAM DATE/TIME: 06/15/2016 10:56 [facility] COMPARISON: CT GUIDED CRYO ABLATION RENAL, LEFT, September 26, 2014, 11:46. INDICATIONS : Diffuse abdomen pain after having fluid taken from the peritoneal cathater. ORAL CONTRAST: No oral contrast ingested. RADIATION DOSE: 9.96 CTDIvol (mGy) MEDICAL HISTORY : Cardiovascular disease. Hypertension. Renal failure, chronic. SURGICAL HISTORY : Splenectomy. ENCOUNTER: Initial ACUITY: 1 day PAIN SCALE: 7/10 LOCATION: Abdomen TECHNIQUE: Volumetric scanning of the abdomen and pelvis was performed. Using automated exposure control and ad justment of the mA and/or kV according to patient size, radiation dose was kept as low as reasonably achievable to obtain optimal diagnostic quality images. FINDINGS: LOWER LUNGS: The visualized lower lungs are clear. LIVER: Homogeneous density without lesion. There is no dilation of the biliary tree. No calcified gallston es. Small amount of ascites. SPLEEN: Surgically absent. PANCREAS: Within normal limits. KIDNEYS: Normal in size and shape. There is no mass, stone, or hydronephrosis. A 1.9 cm complex shocks are al itzel the posterior cortex left mid kidney with calcifications. This has been treated previously with c ryoablation. Low-density lesion lower pole left kidney likely cyst. ADRENAL GLANDS: Within normal limits. VASCULAR: There is no aortic aneurysm. Extensive atherosclerotic changes and tortuosity of the abdominal aorta. BOWEL/MESENTERY: The stomach, small bowel, and colon demonstrate no acute abnormality. There is no free intraperitone al air or fluid. Peritoneal dialysis catheter left mid abdomen. ABDOMINAL WALL: Fat-containing umbilical hernia. RETROPERITONEUM: There is no lymphadenopathy. BLADDER: No wall thickening or mass. REPRODUCTIVE: Enlarged prostate. INGUINAL: There is no lymphadenopathy or hernia. MUSCULOSKELETAL: Within normal limits for patient age. CONCLUSION: 1. Splenectomy. 2. Previously treated indeterminate lesion left kidney. 3. Small amount of abdominal ascites. 4. Enlarged prostate. 5. Peritoneal dialysis catheter. João Fernandez MD on June 15, 2016 at 11:28 Board Certified Radiologist. This report was verified electronically.
[2016-06-15] MEDS ORDERED: MORPHINE SULFATE 4 MG/ML INJ IV PUSH ONE (12:00)
[2016-06-15] MEDS ORDERED: WARF-21 PO (12:30)
[2016-06-15] MEDS ORDERED: WARF-23 PO (12:30)
[2016-06-15] MEDS ORDERED: LORA-361 PO (12:31)
--- NOTE | 2016-06-15 12:35 | HHI.HP ---
HPI Service [facility] Hospitalists Primary Care Physician Nikolai Carrasquillo M.D. Admission Diagnosis Intractable pain Chief Complaint: Abdominal pain Travel History International Travel<30 Days: No Contact w/Intl Traveler <30 Da: No Traveled to Known Affected Are: No History of Present Illness Mr. Avila is a pleasant 75 y/o WM with ESRD on HD, atrial fibrillation on chronic anticoagulation with Coumadin, Diabetes mellitus, HTN, any hyperlipidemia. He presented to the ED at [facility] on 06/15/16 from his dialysis center for hypotension and abdominal pain. Pt reports that his BP initially was about systolic 100 when he got to the HD center. They did 2 hours of hemodialysis but called [facility] to bring pt to ED when BP dropped to systolic in the 80s. When pt arrived to the ED his BP was 127/61 and his BP has been stable while in the ED. He also has a peritoneal dialysis catheter still in place and he reports that this was flushed with 1000cc of dialysate and then drained which is the first time it has been used since he was converted to HD at the end of April. He was converted to HD because they had been unable to get enough volume of fluid off of him with just PD and was having issues with LE edema. Pt reports that he was having abdominal pain as the fluid was being pushed through the catheter and into the abdomen and has continued to have pain in the upper abdomen since then. He had a Noncontrasted CT Abd/pelvis in the ED which noted splenectomy, previously treated indeterminate lesion left kidney, small amount of abdominal ascites, enlarged prostate, and peritoneal dialysis catheter present. Denies any fever/chills, chest pain, SOB, N/V, diarrhea. Pt follows with track production engineer Dr. Maria. Review of Systems Constitutional: DENIES: Fever, Chills Eyes: DENIES: Eye pain, Vision loss Ears, nose, mouth, throat: DENIES: Hearing loss Respiratory: DENIES: Cough, Shortness of breath Cardiovascular: DENIES: Chest pain, Palpitations, Lower Extremity Edema Gastrointestinal: COMPLAINS OF: Abdominal pain, DENIES: Diarrhea, Nausea, Vomiting Genitourinary: DENIES: Hematuria, Dysuria Musculoskeletal: DENIES: Back pain Integumentary: DENIES: Rash Hematologic/lymphatic: DENIES: Bruising Neurologic: DENIES: Headache Psychiatric: DENIES: Confusion, Depression Past Family Social History Past Medical History End-stage renal disease failed PD and now on HD Hypertension Atrial fibrillation Anemia renal disease. Diabetes mellitus Coronary artery disease Dyslipidemia Mild peripheral vascular disease by Doppler by history Hyperphosphatemia BPH Previous left renal cell carcinoma status post cryoablation in 2014 Past Surgical History Appendectomy splenectomy Placement of a peritoneal dialysis catheter Placement of PermCath (05/10/16) Reported Medications Warfarin 7.5 Mg Tab 7.5 Mg PO TUTHSA TAKE ONE TAB (7.5 MG) , , TUE Warfarin 5 Mg Tab 5 Mg PO SUMOWEFR TAKE 1 TAB (5MG) TUE, TUE, TUESDAY, TUESDAY Hydralazine (Hydralazine HCl) 25 Mg Tab 25 Mg PO QID Take with a meal Lasix (Furosemide) 40 Mg Tab 40 Mg PO BID Diphenhydramine (Diphenhydramine HCl) 25 Mg Tab 25 Mg PO Q6H PRN Vitamin E 400 Unit Cap 400 Units PO DAILY Flomax (Tamsulosin HCl) 0.4 Mg Cap 0.4 Mg PO DAILY Percocet (Oxycodone-Acetaminophen) 5-325 mg Tab 1 Tab PO Q6H PRN Multi-Vitamin/Minerals (Multiple Vitamins W/ Minerals) 1 Tab Tab 1 Tab PO DAILY [place] 3-6-9 Complex ([place] 3 Fatty Acids-[place] 6 FA) 1 Cap Cap 1 Cap PO TID Fluticasone Nasal [place] 50 Mcg/Act Naspr 50 Mcg EACH NARE DAILY 50 mcg/spray Proscar (Finasteride) 5 Mg Tab 5 Mg PO DAILY Do not crush. Iron (Ferrous Sulfate) 28 Mg Tab 45 Mg PO DAILY Lipitor (Atorvastatin Calcium) 10 Mg Tab 10 Mg PO HS Allergies: Coded Allergies: No Known Allergies (Verified , 06/15/16) Family History Noncontributory Social History No reported alcohol, tobacco or illicit drug use Physical Exam Vital Signs Vital Signs Date Time Temp Pulse Resp B/P Pulse Ox O2 Delivery O2 Flow Rate FiO2 06/15/16 11:41 65 17 149/66 99 Room Air 06/15/16 10:02 70 17 140/63 81 19 130/63 82 19 148/66 06/15/16 09:33 72 20 98 Nasal Cannula 2 06/15/16 09:28 98.0 69 20 127/61 96 Physical Exam GENERAL: This is a well-nourished, well-developed patient, in no apparent distress. HEENT: Atraumatic. Normocephalic. No temporal or scalp tenderness. No scleral icterus. Airway patent. NECK: Trachea midline, supple, nontender. CARDIO: Regular. RESP: CTA bilaterally. No wheezes, rales, or rhonchi. ABD: +BS, soft, mild upper abdominal tenderness, PD catheter in place. EXT: Extremities without clubbing, cyanosis, or edema. NEURO: Awake and alert. Motor and sensory grossly within normal limits. Normal speech. Laboratory Laboratory Tests Test 06/15/16 09:55 White Blood Count 9.0 Red Blood Count 3.05 Hemoglobin 9.9 Hematocrit 29.4 Mean Corpuscular Volume 96.6 Mean Corpuscular Hemoglobin 32.5 Mean Corpuscular Hemoglobin 33.6 Concent Red Cell Distribution Width 15.3 Platelet Count 398 Mean Platelet Volume 8.0 Neutrophils (%) (Auto) 90.8 Lymphocytes (%) (Auto) 5.1 Monocytes (%) (Auto) 2.5 Eosinophils (%) (Auto) 1.1 Basophils (%) (Auto) 0.5 Neutrophils # (Auto) 8.2 Lymphocytes # (Auto) 0.5 Monocytes # (Auto) 0.2 Eosinophils # (Auto) 0.1 Basophils # (Auto) 0.0 CBC Comment DIFF FINAL Differential Comment Sodium Level 135 Potassium Level 4.4 Chloride Level 99 Carbon Dioxide Level 24.1 Anion Gap 12 Blood Urea Nitrogen 43 Creatinine 4.29 Estimat Glomerular Filtration 14 Rate Random Glucose 130 Calcium Level 9.5 Total Bilirubin 0.6 Aspartate Amino Transf 27 (AST/SGOT) Alanine Aminotransferase 16 (ALT/SGPT) Alkaline Phosphatase 102 Troponin I 0.06 Total Protein 7.1 Albumin 3.4 Lipase 175 Result Diagram: 06/15/1695406/15/16954 Imaging Last Impressions Chest X-Ray 06/15/16 0000 Signed Impressions: Service Date/Time: Wednesday, June 15, 2016 09:44 - CONCLUSION: Mild atelectasis at the bases. Otherwise, no acute finding is identified. Willy Whitt MD Abdomen/Pelvis CT 06/15/16 0000 Signed Impressions: Service Date/Time: Wednesday, June 15, 2016 10:56 - CONCLUSION: 1. Splenectomy. 2. Previously treated indeterminate lesion left kidney. 3. Small amount of abdominal ascites. 4. Enlarged prostate. 5. Peritoneal dialysis catheter. João Fernandez MD Septic Shock Reassessment Heart: Regular rate and rhythm Lungs: Clear Skin: Warm Assessment and Plan Problem List: (1) Abdominal pain Status: Acute Plan: - Pt admitted with abdominal pain that began after having dialysate infused into his PD catheter today. - Pt has been given one dose of Morphine 2mg without much improvement. - Nephrology has been consulted. - Noncontrasted CT Abd/pelvis --> Splenectomy. Previously treated indeterminate lesion left kidney. Small amount of abdominal ascites. Enlarged prostate. Peritoneal dialysis catheter. - Cont. pain meds PRN - Diet as tolerated - Supportive care - DVT prophylaxis with SCDs (2) ESRD (end stage renal disease) on dialysis Status: Chronic Plan: - Pt was converted from PD to HD in April 2016 - He received HD on - Pt still has his PD cath in place. - Nephrology is consulted. - Monitor labs (3) HTN (hypertension) Status: Chronic Plan: - Cont. Hydralazine 25mg QID - Monitor (4) Diabetes Status: Chronic Plan: - NovoLog SSI - Accu checks (5) BPH (benign prostatic hyperplasia) Status: Chronic Plan: - Cont. home meds (6) Atrial fibrillation Status: Chronic Plan: - Pt is on Coumadin 5mg on and 7.5mg - Check INR - Resume Coumadin as long as INR is stable. Assessment and Plan Patient examined. Assessment and plan formulated with Verito Gallagher PA-C. I agree with the above. Pt developed intractable abdomen pain after infusion of 1 L fluid to peritoneal catheter at dialysis center. He gets HD and has not used the PD catheter for over a month. renal consulted. CT noted. pain control and hopefully d/c in AM Problem Qualifiers (1) Diabetes: Verito Gallagher Jun 15, 2016 12:35 Javy Hudson MD Jun 15, 2016 16:38
[2016-06-15] MEDS ORDERED: hydrALAZINE HCL 25 MG TAB PO SCH (13:00)
[2016-06-15] MEDS ORDERED: diphenhydrAMINE HCL 25 MG CAP PO PRN (13:00)
[2016-06-15] MEDS ORDERED: MORPHINE SULFATE 4 MG/ML INJ IV PUSH PRN (13:00)
[2016-06-15] MEDS ORDERED: oxyCODONE/ACETAMINOPHEN 5 MG/325 MG TAB PO PRN (13:00)
[2016-06-15] MEDS ORDERED: ONDANSETRON HCL 4 MG/2 ML VIAL IV PRN (13:00)
[2016-06-15] MEDS ORDERED: ACETAMINOPHEN 325 MG TAB PO PRN (13:00)
[2016-06-15] MEDS ORDERED: DEXTROSE 50% IN WATER 50 ML VIAL(D50) IV PUSH PRN (13:30)
[2016-06-15] MEDS ORDERED: GLUCAGON 1 MG/ML VIAL OTHER PRN (13:30)
[2016-06-15 13:49] LABS: INTERNATIONAL NORMALIZED RATIO 1.7 RATIO; PROTHROMBIN TIME - PATIENT 19.4 SEC (9.8-11.6)
[2016-06-15] MEDS: INSULIN ASPART SUPPLEMENTAL SCALE SQ SCH ×2 (15:15→20:37)
--- NOTE | 2016-06-15 15:18 | EKG ---
Date Performed: 06/15/2016 Time Performed: 10:04:03 PTAGE: 75 years EKG: ATRIAL FIBRILLATION NONSPECIFIC ST & T-WAVE ABNORMALITY ABNORMAL RHYTHM ECG PREVIOUS TRACING : 01/13/2016 13.57 No significant change from previous tracing noted. DOCTOR: Andreas Pabon Interpretating Date/Time 06/15/2016 15:17:23
[2016-06-15] MEDS ORDERED: WARFARIN SOD 7.5 MG TAB PO SCH (16:00)
[2016-06-15 17:45] LABS: BLOOD, URINE NEG (NEG); GLUCOSE,URINE TRACE mg/dL (NEG); KETONE, URINE NEG (NEG); NITRITE,URINE NEG (NEG); PH, URINE 6.5 (5.0-8.5); URINE COLOR YELLOW (YELLW/STRAW)
[2016-06-15 17:55] LABS: COMMENT (UR) CULT NOT INDICATED; CULTURE IF INDICATED CULT NOT INDICATED
[2016-06-15] MEDS: FUROSEMIDE 40 MG TAB PO SCH (20:37)
[2016-06-15] MEDS: hydrALAZINE HCL 25 MG TAB PO SCH (20:37)
[2016-06-15] MEDS ORDERED: ATORVASTATIN 10 MG TAB PO SCH (21:00)
[2016-06-16 05:46] VITALS: BP 127/60; PULSE 68; RESP 18; TEMP 98; O2SAT 93
[2016-06-16] MEDS: INSULIN ASPART SUPPLEMENTAL SCALE SQ SCH (06:15)
[2016-06-16 07:37] VITALS: BP 118/56; PULSE 68; RESP 20; TEMP 98.5; O2SAT 97
[2016-06-16] MEDS: FUROSEMIDE 40 MG TAB PO SCH (08:53)
[2016-06-16] MEDS: hydrALAZINE HCL 25 MG TAB PO SCH (08:53)
[2016-06-16] MEDS ORDERED: FERROUS SULFATE 325 MG (65 MG ELEMENTAL IRON) TAB PO SCH (09:00)
[2016-06-16] MEDS ORDERED: LORATADINE 10 MG TAB PO SCH (09:00)
[2016-06-16] MEDS ORDERED: FLUTICASONE PROPIONATE 50 MCG/ACT 16 GM NASAL SPRAY EACH NARE SCH (09:00)
[2016-06-16] MEDS ORDERED: TAMSULOSIN HCL 0.4 MG CAP PO SCH (09:00)
[2016-06-16] MEDS ORDERED: FINASTERIDE 5 MG TAB PO SCH (09:00)
[2016-06-16 10:15] LABS: AUTOMATED NEUTROPHIL # 10.3 TH/MM3 (1.8-7.7); BASOPHIL % 0.4 % (0.0-2.0); EOSINOPHIL # 0.1 TH/MM3 (0-0.4); EOSINOPHIL % 0.4 % (0.0-4.0); HEMATOCRIT 30.7 % (39.0-51.0); HEMO FLAGS DIFF FINAL; LYMPH % 5.8 % (9.0-44.0); LYMPHOCYTE # 0.7 TH/MM3 (1.0-4.8); MEAN CELL VOLUME 98.4 FL (80.0-100.0); MEAN CORPUSCULAR HEMOGLOBIN 32.4 PG (27.0-34.0); MEAN CORPUSCULAR HGB CONC 32.9 % (32.0-36.0); MONO % 8.7 % (0.0-8.0); NEUT % 84.7 % (16.0-70.0); PLATELET COUNT 359 TH/MM3 (150-450); RED BLOOD COUNT 3.12 MIL/MM3 (4.50-5.90); RED CELL DISTRIBUTION WIDTH 15.3 % (11.6-17.2); WHITE BLOOD COUNT 12.2 TH/MM3 (4.0-11.0)
[2016-06-16 10:23] LABS: INTERNATIONAL NORMALIZED RATIO 2.1 RATIO; PROTHROMBIN TIME - PATIENT 23.8 SEC (9.8-11.6)
--- NOTE | 2016-06-16 10:41 | HHI.PR ---
Subjective Remarks Pt reports that his abdominal pain is much improved today He is anxious for discharge. Objective Vitals Vital Signs Date Time Temp Pulse Resp B/P Pulse Ox O2 Delivery O2 Flow Rate FiO2 06/16/16 07:37 98.5 68 20 118/56 97 06/16/16 05:46 98.0 68 18 127/60 93 06/15/16 23:15 97.8 67 18 162/72 93 06/15/16 21:41 16 06/15/16 19:35 97.7 80 18 134/63 93 06/15/16 17:02 98.1 77 18 143/65 92 06/15/16 16:37 17 06/15/16 16:02 84 16 126/57 97 06/15/16 15:02 95 19 172/84 98 Room Air 06/15/16 13:13 70 17 153/69 97 Room Air 06/15/16 13:05 19 06/15/16 11:41 65 17 149/66 99 Room Air 06/15/16 06/15/16 06/16/16 15:00 23:00 07:00 Intake Total 0 ml Output Total 55 ml Balance 0 ml -55 ml Intake Oral 0 ml Output Urine Total 55 ml # Voids 1 Result Diagram: 06/16/16 0940 06/15/16 0955 Other Results Laboratory Tests Test 06/15/16 06/15/16 06/15/16 06/16/16 09:55 13:27 17:30 09:40 White Blood Count 9.0 TH/MM3 12.2 TH/MM3 Red Blood Count 3.05 MIL/MM3 3.12 MIL/MM3 Hemoglobin 9.9 GM/DL 10.1 GM/DL Hematocrit 29.4 % 30.7 % Mean Corpuscular Volume 96.6 FL 98.4 FL Mean Corpuscular Hemoglobin 32.5 PG 32.4 PG Mean Corpuscular Hemoglobin 33.6 % 32.9 % Concent Red Cell Distribution Width 15.3 % 15.3 % Platelet Count 398 TH/MM3 359 TH/MM3 Mean Platelet Volume 8.0 FL 7.9 FL Neutrophils (%) (Auto) 90.8 % 84.7 % Lymphocytes (%) (Auto) 5.1 % 5.8 % Monocytes (%) (Auto) 2.5 % 8.7 % Eosinophils (%) (Auto) 1.1 % 0.4 % Basophils (%) (Auto) 0.5 % 0.4 % Neutrophils # (Auto) 8.2 TH/MM3 10.3 TH/MM3 Lymphocytes # (Auto) 0.5 TH/MM3 0.7 TH/MM3 Monocytes # (Auto) 0.2 TH/MM3 1.1 TH/MM3 Eosinophils # (Auto) 0.1 TH/MM3 0.1 TH/MM3 Basophils # (Auto) 0.0 TH/MM3 0.0 TH/MM3 CBC Comment DIFF FINAL DIFF FINAL Differential Comment Sodium Level 135 MEQ/L Potassium Level 4.4 MEQ/L Chloride Level 99 MEQ/L Carbon Dioxide Level 24.1 MEQ/L Anion Gap 12 MEQ/L Blood Urea Nitrogen 43 MG/DL Creatinine 4.29 MG/DL Estimat Glomerular Filtration 14 ML/MIN Rate Random Glucose 130 MG/DL Calcium Level 9.5 MG/DL Total Bilirubin 0.6 MG/DL Aspartate Amino Transf 27 U/L (AST/SGOT) Alanine Aminotransferase 16 U/L (ALT/SGPT) Alkaline Phosphatase 102 U/L Troponin I 0.06 NG/ML Total Protein 7.1 GM/DL Albumin 3.4 GM/DL Lipase 175 U/L Prothrombin Time 19.4 SEC 23.8 SEC Prothromb Time International 1.7 RATIO 2.1 RATIO Ratio Urine Color YELLOW Urine Turbidity CLEAR Urine pH 6.5 Urine Specific [place] 1.012 Urine Protein 300 mg/dL Urine Glucose (UA) TRACE mg/dL Urine Ketones NEG mg/dL Urine Occult Blood NEG Urine Nitrite NEG Urine Bilirubin NEG Urine Urobilinogen LESS THAN 2.0 MG/DL Urine Leukocyte Esterase NEG Urine RBC LESS THAN 1 /hpf Urine WBC 1 /hpf Microscopic Urinalysis Comment CULT NOT INDICATED Imaging Last Impressions Chest X-Ray 06/15/16 Signed Impressions: Service Date/Time: Wednesday, June 15, 2016 09:44 - CONCLUSION: Mild atelectasis at the bases. Otherwise, no acute finding is identified. Willy Whitt MD Abdomen/Pelvis CT 06/15/16 0000 Signed Impressions: Service Date/Time: Wednesday, June 15, 2016 10:56 - CONCLUSION: 1. Splenectomy. 2. Previously treated indeterminate lesion left kidney. 3. Small amount of abdominal ascites. 4. Enlarged prostate. 5. Peritoneal dialysis catheter. João Fernandez MD Objective Remarks General: NAD, AAOx3 Chest: CTA bilaterally Cardiac: Regular Abd: +BS, soft ND/NT, PD catheter in place. Ext: No edema A/P Problem List: (1) Abdominal pain Status: Acute Plan: - Pt admitted with abdominal pain that began after having dialysate infused into his PD catheter on 06/15, felt likely to be related to the infusion. Pt is symptomatically improved today. - Nephrology has been consulted. - Noncontrasted CT Abd/pelvis --> Splenectomy. Previously treated indeterminate lesion left kidney. Small amount of abdominal ascites. Enlarged prostate. Peritoneal dialysis catheter. - Cont. pain meds PRN - Diet as tolerated - Supportive care - Anticipate discharge to home later today. (2) ESRD (end stage renal disease) on dialysis Status: Chronic Plan: - Pt was converted from PD to HD in April 2016 - He received HD on - Pt still has his PD cath in place. - Nephrology is consulted. - Monitor labs (3) HTN (hypertension) Status: Chronic Plan: - Pt is on Hydralazine 25mg QID at home, but has been having some hypotension, change to BID dosing. - BP is stable. - Monitor (4) Diabetes Status: Chronic Plan: - NovoLog SSI - Accu checks (5) BPH (benign prostatic hyperplasia) Status: Chronic Plan: - Cont. home meds (6) Atrial fibrillation Status: Chronic Plan: - Pt is on Coumadin 5mg on -[place] and 7.5mg - INR 2.1 today Assessment and Plan Patient examined. Assessment and plan formulated with Verito Gallagher PA-C. I agree with the above. pt had intractable pain of abdomen last night after dialysis center flushed his PD catheter with 1 liter fluid....better today. d/c home. Problem Qualifiers (1) Diabetes: Verito Gallagher Jun 16, 2016 10:41 Javy Hudson MD Jun 16, 2016 11:05
[2016-06-16] MEDS ORDERED: HYDR25TA35 PO (10:42)
--- NOTE | 2016-06-16 10:44 | HHI.DCPOC ---
Discharge Care Plan Diagnosis: (1) ESRD (end stage renal disease) on dialysis (2) HTN (hypertension) (3) BPH (benign prostatic hyperplasia) (4) Abdominal pain (5) Diabetes (6) Atrial fibrillation Goals to Promote Your Health * To prevent worsening of your condition and complications - Pts prescription for Hydralazine has been changed to 25mg twice daily. - Pt is to followup with Nephrology for his regularly scheduled dialysis Directions to Meet Your Goals Take your medications as prescribed Follow your dietary instruction Follow activity as directed Keep your appointments as scheduled Take your immunizations and boosters as scheduled If your symptoms worsen call your PCP, if no PCP go to Urgent Care Center or Emergency Room Smoking is Dangerous to Your Health. Avoid second hand smoke Call the 24-hour hour crisis hotline for domestic abuse at Verito Gallagher Jun 16, 2016 10:44
[2016-06-16 10:50] LABS: BICARBONATE 27.4 MEQ/L (21.0-32.0); BICARBONATE 27.9 MEQ/L (21.0-32.0); POTASSIUM 5.1 MEQ/L (3.5-5.1)
[2016-06-16] MEDS ORDERED: WARFARIN SOD 5 MG TAB PO SCH (16:00)
[2016-10-04] MEDS ORDERED: MULT1TAB PO (15:40)
[2016-10-04] MEDS ORDERED: HYDR-3799 PO (15:40)
[2016-10-05] MEDS ORDERED: FURO1TAB61 PO (08:53)
== END 2016-06-16 12:25 | disposition home or self-care (01) ==
LOC: NEPE 09:25 → NEDA 12:23 → NEPGCP 17:29
PROVIDERS: ADMIT Hospitalist; ATTEND Hospitalist
DX: R10.9 Unspecified abdominal pain (principal); E11.22 Type 2 diabetes mellitus with diabetic chronic kidney disease; I12.0 Hypertensive chronic kidney disease with stage 5 chronic kidney disease or end stage renal disease; N18.6 End stage renal disease; I48.2 Chronic atrial fibrillation; R18.8 Other ascites; E78.5 Hyperlipidemia, unspecified; D63.1 Anemia in chronic kidney disease; E11.51 Type 2 diabetes mellitus with diabetic peripheral angiopathy without gangrene; E78.00 Pure hypercholesterolemia, unspecified; I25.10 Atherosclerotic heart disease of native coronary artery without angina pectoris; Z99.2 Dependence on renal dialysis; N40.0 Benign prostatic hyperplasia without lower urinary tract symptoms; Z85.53 Personal history of malignant neoplasm of renal pelvis; Z90.81 Acquired absence of spleen; Z79.01 Long term (current) use of anticoagulants
CPT/HCPCS: 71010; 74176; 80048; 80053; 80069; 81001; 82948; 83690; 84484; 85025; 85610; 93005; 96374; 99285; G0378; J1815; J2270

== ENCOUNTER 2016-06-29 07:17 | Inpatient (IN) | payer MEDICARE ==
[2016-06-29] VITALS (11 sets, daily range): BP systolic 141–223; BP diastolic 68–109; PULSE 56–99; RESP 16–20; TEMP 98–98.9; O2SAT 95–98
[~2016-06-29] VITALS: Ht 177.8 cm; Wt 69.1 kg
[~2016-06-29 07:17] MED LIST changes: -COUM5TAB PO; -COUM7.5T PO; -DILT120C15 PO; +DIPH25TA2 PO; -ERGO8000S PO; +FURO1TAB60 PO; +HYDR25TA35 PO; -LONITEN PO; +LORA-361 PO; -LORA-373 PO; +WARF-21 PO; +WARF-23 PO
[2016-06-29] MEDS ORDERED: SODIUM CHLORIDE 0.9% FLUSH 5 ML FLUSH IVF PRN (07:45)
--- NOTE | 2016-06-29 07:48 | PD ---
HPI Chief Complaint: Altered Mental Status Time Seen by Provider: 07:19 Travel History International Travel<30 days: No Contact w/Intl Traveler<30days: No Traveled to known affect area: No History of Present Illness HPI This patient is brought in by paramedics for altered mental status. He was last seen normal yesterday evening. Patient has minimal ability to provide any useful history or review of systems. He is A dialysis patient with chronic A. fib on Coumadin. He had a fall yesterday and complains of right wrist pain. He denies having head injury. He denies neck pain. Symptoms severity is moderate. He is confused. No alleviating factors. Duration one day. He's had no fever. He is due today for dialysis. PFSH Past Medical History Atrial Fibrillation: Yes Blood Disorders: No Heart Rhythm Problems: Yes Cancer: No Cardiovascular Problems: Yes (A. FIB) High Cholesterol: Yes Chemotherapy: No Chest Pain: No Congestive Heart Failure: No Cerebrovascular Accident: No Diabetes: Yes Diminished Hearing: No Endocrine: Yes Gastrointestinal Disorders: Yes (gastritis) Genitourinary: No Hepatitis: No Hiatal Hernia: No Hypertension: Yes Immune Disorder: No Implanted Vascular Access Dvce: Yes Musculoskeletal: Yes (scoliosis on right side) Neurologic: No Psychiatric: No Reproductive: No Respiratory: No Radiation Therapy: No Renal Failure: Yes (STAGE III) Thyroid Disease: No Past Surgical History Abdominal Surgery: Yes (SPLEENECTOMY, LEFT HERNIA '-, peritoneal dialysis and hemodialysis) AICD: No Appendectomy: Yes Body Medical Devices: peritoneal tube, right vascath Cardiac Surgery: No Ear Surgery: No Endocrine Surgery: No Eye Surgery: No Genitourinary Surgery: No Gynecologic Surgery: No Joint Replacement: No Pacemaker: No Thoracic Surgery: No Other Surgery: Yes Social History Alcohol Use: No Tobacco Use: No (1958) Substance Use: No Allergies-Medications (Allergen,Severity, Reaction): Coded Allergies: No Known Allergies (Verified , 06/15/16) Reported Meds & Prescriptions Reported Meds & Active Scripts Active Hydralazine (Hydralazine HCl) 25 Mg Tab 25 Mg PO BID Take with a meal Reported Benazepril (Benazepril HCl) 40 Mg Tab 40 Mg PO DAILY Calcium Acetate (Phosphate Binder) 667 Mg Cap 1,334 Mg PO TID Claritin (Loratadine) 10 Mg Tab 10 Mg PO DAILY Warfarin 7.5 Mg Tab 7.5 Mg PO TUTHSA TAKE ONE TAB (7.5 MG) , , TUE Warfarin 5 Mg Tab 5 Mg PO SUMOWEFR TAKE 1 TAB (5MG) TUE, TUE, TUESDAY, TUESDAY Lasix (Furosemide) 40 Mg Tab 40 Mg PO BID Diphenhydramine (Diphenhydramine HCl) 25 Mg Tab 25 Mg PO Q6H PRN Vitamin E 400 Unit Cap 400 Units PO DAILY Flomax (Tamsulosin HCl) 0.4 Mg Cap 0.4 Mg PO DAILY Percocet (Oxycodone-Acetaminophen) 5-325 mg Tab 1 Tab PO Q6H PRN Multi-Vitamin/Minerals (Multiple Vitamins W/ Minerals) 1 Tab Tab 1 Tab PO DAILY [place] 3-6-9 Complex ([place] 3 Fatty Acids-[place] 6 FA) 1 Cap Cap 1 Cap PO TID Fluticasone Nasal [place] 50 Mcg/Act Naspr 50 Mcg EACH NARE DAILY 50 mcg/spray Proscar (Finasteride) 5 Mg Tab 5 Mg PO DAILY Do not crush. Iron (Ferrous Sulfate) 28 Mg Tab 45 Mg PO DAILY Lipitor (Atorvastatin Calcium) 10 Mg Tab 10 Mg PO HS Review of Systems General / Constitutional: No: Fever Eyes: No: Visual changes HENT: No: Headaches Cardiovascular: Positive: Irregular Rhythm, No: Chest Pain or Discomfort Respiratory: No: Shortness of Breath Gastrointestinal: No: Abdominal Pain Genitourinary: No: Dysuria Musculoskeletal: Positive: Pain Skin: No Rash Neurologic: Positive: Change in Mentation, No: Weakness Psychiatric: No: Depression Endocrine: No: Polydipsia Hematologic/Lymphatic: No: Easy Bruising Physical Exam Narrative GENERAL: Well-nourished, well-developed patient in no apparent distress. SKIN: Warm and dry. HEAD: Atraumatic. Normocephalic. EYES: Pupils equal and round. No scleral icterus. No injection or drainage. ENT: No nasal bleeding or discharge. Mucous membranes pink and moist. Throat clear NECK: Trachea midline. No JVD. No midline tenderness or meningeal signs CARDIOVASCULAR: Regular rate and rhythm. No murmur appreciated. RESPIRATORY: No accessory muscle use. Clear to auscultation. Breath sounds equal bilaterally. GASTROINTESTINAL: Abdomen soft, non-tender, nondistended. Hepatic and splenic margins not palpable. Has a peritoneal dialysis catheter in the abdomen. MUSCULOSKELETAL: No obvious deformities. No clubbing. No cyanosis. No edema. Has a Vas-Cath in his right upper chest. He has some right wrist tenderness but there is no deformity or open wound or bruising. NEUROLOGICAL: Awake and looking around but ignores some questions and answers others. No obvious cranial nerve deficits. Motor grossly within normal limits. Normal speech. PSYCHIATRIC: Has a flat and unemotional mood and affect; insight and judgment reduced. Data Data Last Documented VS Vital Signs Date Time Temp Pulse Resp B/P Pulse Ox O2 Delivery O2 Flow Rate FiO2 06/29/16 09:32 72 20 141/75 97 Room Air 06/29/16 07:20 98.0 Orders Basic Metabolic Panel (Bmp) (06/29/16 07:33) Complete Blood Count With Diff (06/29/16 07:33) Prothrombin Time / Inr (Pt) (06/29/16 07:33) Urinalysis - C+S If Indicated (06/29/16 07:33) Ct Brain W/O Iv Contrast(Rout) (06/29/16 07:33) Ecg Monitoring (06/29/16 07:33) Iv Access Insert/Monitor (06/29/16 07:33) Cath For Specimen (06/29/16 07:33) Oximetry (06/29/16 07:33) Sodium Chloride 0.9% Flush (Ns Flush) (06/29/16 07:45) Wrist, Complete ([id number]) (06/29/16 ) Labetalol Inj (Trandate Inj) (06/29/16 08:00) Hydralazine Inj (Apresoline Inj) (06/29/16 09:15) Admit Order (Ed Use Only) (06/29/16 09:49) Lorazepam Inj (Ativan Inj) (06/29/16 10:00) Dextrose 50% In Olivia (Syr) Inj (D50w (Syr (06/29/16 10:00) Insulin Human Regular Inj (Novolin R Inj (06/29/16 10:00) Sodium Bicarbonate 8.4% Inj (Sodium Bica (06/29/16 10:00) Labs Laboratory Tests Test 06/29/16 06/29/16 07:38 07:51 White Blood Count 13.5 TH/MM3 Red Blood Count 3.57 MIL/MM3 Hemoglobin 11.4 GM/DL Hematocrit 35.0 % Mean Corpuscular Volume 97.9 FL Mean Corpuscular Hemoglobin 31.8 PG Mean Corpuscular Hemoglobin 32.5 % Concent Red Cell Distribution Width 15.3 % Platelet Count 430 TH/MM3 Mean Platelet Volume 8.1 FL Neutrophils (%) (Auto) 80.7 % Lymphocytes (%) (Auto) 8.9 % Monocytes (%) (Auto) 7.7 % Eosinophils (%) (Auto) 1.8 % Basophils (%) (Auto) 0.9 % Neutrophils # (Auto) 10.9 TH/MM3 Lymphocytes # (Auto) 1.2 TH/MM3 Monocytes # (Auto) 1.0 TH/MM3 Eosinophils # (Auto) 0.3 TH/MM3 Basophils # (Auto) 0.1 TH/MM3 CBC Comment DIFF FINAL Differential Comment Prothrombin Time 21.2 SEC Prothromb Time International 1.9 RATIO Ratio Sodium Level 133 MEQ/L Potassium Level 6.5 MEQ/L Chloride Level 99 MEQ/L Carbon Dioxide Level 21.8 MEQ/L Anion Gap 12 MEQ/L Blood Urea Nitrogen 107 MG/DL Creatinine 7.62 MG/DL Estimat Glomerular Filtration 7 ML/MIN Rate Random Glucose 101 MG/DL Calcium Level 11.2 MG/DL Urine Color YELLOW Urine Turbidity CLEAR Urine pH 7.5 Urine Specific [place] 1.010 Urine Protein 300 mg/dL Urine Glucose (UA) NEG mg/dL Urine Ketones NEG mg/dL Urine Occult Blood NEG Urine Nitrite NEG Urine Bilirubin NEG Urine Urobilinogen LESS THAN 2.0 MG/DL Urine Leukocyte Esterase NEG Urine RBC LESS THAN 1 /hpf Urine WBC 1 /hpf Microscopic Urinalysis Comment CATH-CULT NOT IND MDM Medical Decision Making Medical Screen Exam Complete: Yes Emergency Medical Condition: Yes Medical Record Reviewed: Yes Differential Diagnosis Intracranial hemorrhage, uremia, electrolyte abnormality, hypertensive emergency Narrative Course I have reviewed the patient's electronic medical record. I reviewed his last admission history and physical where he was admitted for abdominal pain from dialysis IV placed I've ordered an extensive altered mental status workup Given his accelerated hypertension of 218 systolic and altered mental status he may have hypertensive emergency I gave him 20 mg IV labetalol He did not get his antihypertensive yesterday or today according to paramedics Extended cardiac monitoring shows A. fib but rate controlled Brain CT shows no hemorrhage CBC shows white count 13.5 Metabolic profile shows normal bicarbonate but hyperkalemia of 6.5 and severe azotemia as expected. Sodium bicarbonate and IV insulin and IV glucose given to help lower her potassium while dialysis is arranged. There is no peaked T waves on monitoring INR on Coumadin is 1.9 Catheterized urine is clean I don't see objective neurologic deficit but he has global confusion and very high blood pressure Blood pressure did not budge it all so I gave him a dose of 20 mg IV hydralazine On recheck blood pressure is now 140 systolic He is quite confused and restless and I gave him an Ativan dose I reviewed with his pantry goods maker. He will arrange dialysis shortly I spoke with the hospitalist will admit I believe he has uremic encephalopathy with hyperkalemia and hypertensive emergency Hopefully after dialysis he will be improved Blood culture was drawn and a dose of vancomycin given Critical Care Narrative Aggregate critical care time was 35 minutes. Time to perform other separately billable procedures was not included in the critical care time. My time did not include minutes spent treating any other patients simultaneously or on activities that did not directly contribute to the patient's treatment. The services I provided to this patient were to treat and/or prevent clinically significant deterioration that could result in: Brain stem herniation, cardiopulmonary arrest, permanent neurologic deficit I provided critical care services requiring my management, as noted below: Chart data review, documentation time, medication orders and management, vital sign assessments/reviewing monitor data, ordering and reviewing lab tests, ordering and interpreting/reviewing x-rays and diagnostic studies, care of the patient and discussion of the patient with the admitting physicians. Diagnosis Primary Impression: Uremic encephalopathy Additional Impressions: Hypertensive emergency without congestive heart failure Acute hyperkalemia Admitting Information Admitting Physician Requests: Eric Beverly MD Jun 29, 2016 07:48
[2016-06-29 07:51] LABS: AUTOMATED NEUTROPHIL # 10.9 TH/MM3 (1.8-7.7); BASOPHIL # 0.1 TH/MM3 (0-0.2); BASOPHIL % 0.9 % (0.0-2.0); EOSINOPHIL # 0.3 TH/MM3 (0-0.4); EOSINOPHIL % 1.8 % (0.0-4.0); HEMO FLAGS DIFF FINAL; LYMPH % 8.9 % (9.0-44.0); LYMPHOCYTE # 1.2 TH/MM3 (1.0-4.8); MEAN CELL VOLUME 97.9 FL (80.0-100.0); MEAN CORPUSCULAR HEMOGLOBIN 31.8 PG (27.0-34.0); MEAN CORPUSCULAR HGB CONC 32.5 % (32.0-36.0); MONO % 7.7 % (0.0-8.0); NEUT % 80.7 % (16.0-70.0); PLATELET COUNT 430 TH/MM3 (150-450); RED BLOOD COUNT 3.57 MIL/MM3 (4.50-5.90); RED CELL DISTRIBUTION WIDTH 15.3 % (11.6-17.2); WHITE BLOOD COUNT 13.5 TH/MM3 (4.0-11.0)
[2016-06-29 08:00] LABS: INTERNATIONAL NORMALIZED RATIO 1.9 RATIO; PROTHROMBIN TIME - PATIENT 21.2 SEC (9.8-11.6)
[2016-06-29] MEDS ORDERED: LABETALOL HCL 100 MG/20 ML VIAL IV PUSH ONE (08:00)
[2016-06-29 08:10] LABS: BLOOD, URINE NEG (NEG); GLUCOSE,URINE NEG (NEG); KETONE, URINE NEG (NEG); NITRITE,URINE NEG (NEG); PH, URINE 7.5 (5.0-8.5); URINE COLOR YELLOW (YELLW/STRAW)
[2016-06-29 08:11] LABS: COMMENT (UR) CATH-CULT NOT IND; CULTURE IF INDICATED CATH CULTURE NOT IND
[2016-06-29 08:24] LABS: BICARBONATE 21.8 MEQ/L (21.0-32.0); POTASSIUM 6.5 MEQ/L (3.5-5.1)
[2016-06-29] MEDS ORDERED: CALC1CAP PO (08:36)
[2016-06-29] MEDS ORDERED: BENA40TA PO (08:36)
--- NOTE | 2016-06-29 08:41 | RADRPT ---
EXAM DATE/TIME: 06/29/2016 08:24 [facility] COMPARISON: No previous studies available for comparison. INDICATIONS : Fall. Right wrist pain. MEDICAL HISTORY : Cardiovascular disease. Hypertension Renal failure, chronic. SURGICAL HISTORY : Splenectomy. Right distal forearm ORIF. ENCOUNTER: Initial ACUITY: 1 day PAIN SCORE: Non-responsive. LOCATION: Right wrist FINDINGS: Three view examination of the right wrist demonstrates a side plate and osseous screw securing an old distal radial diaphyseal fracture. There is some bony remodeling in the same general vicinity as the side plate. Otherwise, osseous structures are intact no acute fracture. Well-corticated ossification distal to the ulnar is characteristic of an old avulsion injury or accessory ossification. Dense ath erosclerotic calcification of the regional vasculature. There are degenerative osteoarthritic changes at the first CMC joint. CONCLUSION: 1. Bony remodeling in the distal radial diaphysis with a regional sideplate and osseous screws charac teristic for an old healed fracture injury. 2. Accessory ossification versus old avulsion injury of the ulnar styloid. 3. No acute fracture. 4. Osteoarthritis of the first CMC joint. Addy Almazan MD on June 29, 2016 at 8:37 Board Certified Radiologist. This report was verified electronically.
[2016-06-29] MEDS ORDERED: hydrALAZINE HCL 20 MG/ML VIAL IV PUSH ONE (09:15)
--- NOTE | 2016-06-29 09:40 | RADRPT ---
EXAM DATE/TIME: 06/29/2016 08:30 [facility] COMPARISON: No previous studies available for comparison. INDICATIONS : Patient fell this morning. RADIATION DOSE: 46.61 CTDIvol (mGy) MEDICAL HISTORY: Diabetes mellitus type 2. Hypertension. Cardiovascular disease SURGICAL HISTORY: Appendectomy. ENCOUNTER: Initial ACUITY: 1 day PAIN SCALE: 6/10 LOCATION: Cranial TECHNIQUE: Multiple contiguous axial images were obtained of the head. Using automated exposure control and adj ustment of the mA and/or kV according to patient size, radiation dose was kept as low as reasonably a chievable to obtain optimal diagnostic quality images. FINDINGS: The ventricles, sulci and cisterns are normal in size, shape and position for the patient's age. The re is no acute hemorrhage, mass effect or extraaxial fluid collections. No acute infarction is noted . Scattered mucous retention cysts are noted within the left maxillary sinus. The bony structures a re unremarkable without skull fracture. CONCLUSION: 1. No acute intracranial abnormality. 2. Scattered mucous retention cysts within the left maxillary sinus. Winston Grande MD on June 29, 2016 at 9:22 Board Certified Radiologist. This report was verified electronically.
[2016-06-29] MEDS ORDERED: INSULIN HUMAN REGULAR 1,000 UNITS/10 ML VIAL IVP ONE (10:00)
[2016-06-29] MEDS ORDERED: LORazepam 2 MG/ML VIAL IV PUSH ONE (10:00)
[2016-06-29] MEDS ORDERED: SODIUM BICARBONATE 8.4% INJ 50 MEQ/50 ML SYR IV PUSH ONE (10:00)
[2016-06-29] MEDS ORDERED: DEXTROSE 50% IN WATER 50 ML SYRINGE IV ONE (10:00)
[2016-06-29] MEDS ORDERED: SODIUM CHLOR 0.9% 1000 ML INJ 1,000 ML IV PRN ×2 (10:03)
[2016-06-29] MEDS ORDERED: HEPARIN SODIUM - IV 10,000 UNITS/10 ML VIAL IVF PRN (10:15)
[2016-06-29] MEDS ORDERED: GELATIN 12 MM/7 MM FOAM TOP PRN (10:15)
[2016-06-29] MEDS ORDERED: diphenhydrAMINE HCL 25 MG CAP PO PRN (10:15)
[2016-06-29] MEDS ORDERED: ALBUMIN HUMAN 25% 25 GM/100 ML BAGP IV PRN (10:15)
[2016-06-29] MEDS ORDERED: cloNIDine HCL 0.1 MG TAB PO PRN (10:15)
[2016-06-29] MEDS ORDERED: MANNITOL 12.5 GM/50 ML VIAL IV PRN (10:15)
[2016-06-29] MEDS ORDERED: NITROGLYCERIN 0.4 MG SL 25 TABS/BTL SL PRN (10:15)
[2016-06-29] MEDS ORDERED: ACETAMINOPHEN 325 MG TAB PO PRN (10:15)
[2016-06-29] MEDS ORDERED: VANCOMYCIN INJ 1,000 MG in SODIUM CHLOR 0.9% 250 ML INJ 250 ML IV ONE (10:15)
[2016-06-29] MEDS ORDERED: ONDANSETRON HCL 4 MG/2 ML VIAL IV PRN (10:15)
[2016-06-29] MEDS ORDERED: SODIUM CHLORIDE 0.9% FLUSH 10 ML FLUSH IV FLUSH PRN (10:15)
[2016-06-29] MEDS ORDERED: oxyCODONE/ACETAMINOPHEN 5 MG/325 MG TAB PO PRN (10:15)
--- NOTE | 2016-06-29 11:48 | PD.CONS ---
HPI Service Nephrology Consult Requested By Dr. Mondragon Reason for Consult Known ESRD on HD Primary Care Physician Nikolai Carrasquillo M.D. History of Present Illness The patient is a 75 yo [place] male who is known to our services for ESRD. According to reports from his , he was in his normal state of health all yesterday besides a fall from his wheelchair. This was not witnessed as she was at work, but he fell on R wrist. Was on the floor when she came home from work and it is not clear at the present how long he was on the ground. States this AM she woke him up for transportation to his HD treatment, and he was mentally altered. EMS was called for transport to [facility] [place]. Has has CT of head that was negative for stroke. BP quite elevated. Has been previously instructed to hold BP medications on HD days, but to take as scheduled on non-HD days, but given his fall yesterday, it is not certain if he took any of his BP medications. Seen in ED room and the patient himself if oriented to person and place, but not time. He is very agitated saying he wants to get up out of the bed. Does keep pointing to his right wrist saying it hurts. 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 Placement of a peritoneal dialysis catheter. Reported Medications Reported Meds & Active Scripts Active Hydralazine (Hydralazine HCl) 25 Mg Tab 25 Mg PO BID Take with a meal Reported Benazepril (Benazepril HCl) 40 Mg Tab 40 Mg PO DAILY Calcium Acetate (Phosphate Binder) 667 Mg Cap 1,334 Mg PO TID Claritin (Loratadine) 10 Mg Tab 10 Mg PO DAILY Warfarin 7.5 Mg Tab 7.5 Mg PO TUTHSA TAKE ONE TAB (7.5 MG) TUES, THURS, SAT Warfarin 5 Mg Tab 5 Mg PO SUMOWEFR TAKE 1 TAB (5MG) MON, WED, TUESDAY, TUESDAY Lasix (Furosemide) 40 Mg Tab 40 Mg PO BID Diphenhydramine (Diphenhydramine HCl) 25 Mg Tab 25 Mg PO Q6H PRN Vitamin E 400 Unit Cap 400 Units PO DAILY Flomax (Tamsulosin HCl) 0.4 Mg Cap 0.4 Mg PO DAILY Percocet (Oxycodone-Acetaminophen) 5-325 mg Tab 1 Tab PO Q6H PRN Multi-Vitamin/Minerals (Multiple Vitamins W/ Minerals) 1 Tab Tab 1 Tab PO DAILY [place] 3-6-9 Complex ([place] 3 Fatty Acids-[place]rill 6 FA) 1 Cap Cap 1 Cap PO TID Fluticasone Nasal [place] 50 Mcg/Act Naspr 50 Mcg EACH NARE DAILY 50 mcg/spray Proscar (Finasteride) 5 Mg Tab 5 Mg PO DAILY Do not crush. Iron (Ferrous Sulfate) 28 Mg Tab 45 Mg PO DAILY Lipitor (Atorvastatin Calcium) 10 Mg Tab 10 Mg PO HS Active Ordered Medications Current Medications Medications (Trade) Dose Ordered Sig/Terra Route Start Time Stop Time Status Last Admin IV Flush 2 ml 2 ml UNSCH PRN IVF 06/29/16 07:45 (NS 1000 ml Inj) 1,000 ml @ 0 mls/hr Q0M PRN IV 06/29/16 10:03 UNV Heparin Sodium (Porcine) 8000 units 8,000 units UNSCH PRN IVF 06/29/16 10:15 UNV Sodium Chloride 1,000 ml @ 200 mls/hr Q5H PRN IV 06/29/16 10:03 UNV (NS 1000 ml Inj) 1,000 ml @ 0 mls/hr Q0M PRN IV 06/29/16 10:03 UNV (Mannitol Inj) 12.5 gm UNSCH PRN IV 06/29/16 10:15 UNV (Albumin 25% Inj) 25 gm UNSCH PRN IV 06/29/16 10:15 UNV (NS Flush) 5 ml UNSCH PRN IV FLUSH 06/29/16 10:15 UNV (Heparin Inj) UNSCH PRN .XX 06/29/16 10:15 UNV (Gentamicin (Dialysis) Inj) 20 mg UNSCH PRN IV 06/29/16 10:15 UNV (Zofran Inj) 4 mg UNSCH PRN IV 06/29/16 10:15 UNV (Tylenol) 650 mg UNSCH PRN PO 06/29/16 10:15 UNV (Benadryl) 25 mg UNSCH PRN PO 06/29/16 10:15 UNV (Nitrostat Sl) 0.4 mg UNSCH PRN SL 06/29/16 10:15 UNV (Catapres) 0.1 mg UNSCH PRN PO 06/29/16 10:15 UNV Gelatin 1 foam 1 foam UNSCH PRN TOP 06/29/16 10:15 UNV (Vancomycin Inj/ NS 250 ml Inj) 250 ml @ 250 mls/hr ONCE ONCE IV 06/29/16 10:15 06/29/16 11:14 (Lipitor) 10 mg HS PO 06/29/16 21:00 UNV (Phoslo) 1,334 mg TID PO 06/29/16 13:00 UNV (Proscar) 5 mg DAILY PO 06/30/16 09:00 UNV (Flonase Mario Spr) 1 spray DAILY EACH NARE 06/30/16 09:00 UNV (Lasix) 40 mg BID PO 06/29/16 21:00 UNV (Apresoline) 25 mg BID PO 06/29/16 21:00 UNV (Claritin) 10 mg DAILY PO 06/30/16 09:00 UNV (Percocet 5-325 Mg) 1 tab Q6H PRN PO 06/29/16 10:15 UNV (Flomax) 0.4 mg DAILY PO 06/30/16 09:00 UNV (Coumadin) 5 mg SUMOWEFR PO 06/30/16 10:15 UNV (Coumadin) 7.5 mg TUTHSA PO 06/29/16 10:15 UNV (Norvasc) 5 mg DAILY PO 06/30/16 09:00 UNV Family History Noncontributory Social History Lives at home with Non-smoker No EtOH No illicit drug use (Isis Hreman) Physical Exam Vital Signs Vital Signs Date Time Temp Pulse Resp B/P Pulse Ox O2 Delivery O2 Flow Rate FiO2 06/29/16 10:04 77 20 161/91 97 Room Air 06/29/16 09:32 72 20 141/75 97 Room Air 06/29/16 09:18 57 18 223/90 98 Room Air 06/29/16 08:57 56 18 204/91 98 Room Air 06/29/16 08:07 63 20 187/109 96 Room Air 06/29/16 07:37 96 Room Air 06/29/16 07:31 74 20 96 Room Air 06/29/16 07:20 98.0 81 20 218/97 96 Physical Exam GENERAL: Pt awake and confused. Distressed. Saying he is in pain with wrist and asking to get out of bed. SKIN: Warm and dry. HEAD: Atraumatic. Normocephalic. EYES: Pupils equal and round. No scleral icterus. No injection or drainage. ENT: No nasal bleeding or discharge. Mucous membranes pink and moist. NECK: Trachea midline. No JVD. CARDIOVASCULAR: Regular rate and rhythm. RESPIRATORY: No accessory muscle use. Clear to auscultation. Breath sounds equal bilaterally. RIJ Permcath in place GASTROINTESTINAL: Abdomen soft, non-tender, nondistended. Hepatic and splenic margins not palpable. PD catheter in place MUSCULOSKELETAL: Extremities without clubbing, cyanosis, or edema. No obvious deformities. NEUROLOGICAL: Awake and alert. Oriented x2. Confused. PSYCHIATRIC: Inappropriate mood and affect; insight and judgment abnormal. Laboratory Laboratory Tests Test 06/29/16 06/29/16 07:38 07:51 White Blood Count 13.5 Red Blood Count 3.57 Hemoglobin 11.4 Hematocrit 35.0 Mean Corpuscular Volume 97.9 Mean Corpuscular Hemoglobin 31.8 Mean Corpuscular Hemoglobin 32.5 Concent Red Cell Distribution Width 15.3 Platelet Count 430 Mean Platelet Volume 8.1 Neutrophils (%) (Auto) 80.7 Lymphocytes (%) (Auto) 8.9 Monocytes (%) (Auto) 7.7 Eosinophils (%) (Auto) 1.8 Basophils (%) (Auto) 0.9 Neutrophils # (Auto) 10.9 Lymphocytes # (Auto) 1.2 Monocytes # (Auto) 1.0 Eosinophils # (Auto) 0.3 Basophils # (Auto) 0.1 CBC Comment DIFF FINAL Differential Comment Prothrombin Time 21.2 Prothromb Time International 1.9 Ratio Sodium Level 133 Potassium Level 6.5 Chloride Level 99 Carbon Dioxide Level 21.8 Anion Gap 12 Blood Urea Nitrogen 107 Creatinine 7.62 Estimat Glomerular Filtration 7 Rate Random Glucose 101 Calcium Level 11.2 Urine Color YELLOW Urine Turbidity CLEAR Urine pH 7.5 Urine Specific [place] 1.010 Urine Protein 300 Urine Glucose (UA) NEG Urine Ketones NEG Urine Occult Blood NEG Urine Nitrite NEG Urine Bilirubin NEG Urine Urobilinogen LESS THAN 2.0 Urine Leukocyte Esterase NEG Urine RBC LESS THAN 1 Urine WBC 1 Microscopic Urinalysis Comment CATH-CULT NOT IND (Isis Herman) Result Diagram: 06/29/16 0738 06/29/16 0738 Imaging Last Impressions Wrist X-Ray 06/29/16 0000 Signed Impressions: Service Date/Time: Wednesday, June 29, 2016 08:24 - CONCLUSION: 1. Bony remodeling in the distal radial diaphysis with a regional sideplate and osseous screws characteristic for an old healed fracture injury. 2. Accessory ossification versus old avulsion injury of the ulnar styloid. 3. No acute fracture. 4. Osteoarthritis of the first CMC joint. Addy Almazan MD (Isis Herman) Assessment and Plan Problem List: (1) ESRD (end stage renal disease) on dialysis Plan: HD today. 1K bath first hour then switch to 2K. 2 Ca++ bath as hypercalcemic. Baseline SCr been around 5 as per outpatient labs, in house >7. Medications should be adjusted for ESRD. Avoid gadolinium. (2) Uremic encephalopathy Plan: AMS from uremia versus other? Outpatient kinetics reviewed and appears to be getting adequate HD tx. HD today as per regular schedule. BCx ordered. If not bacteremic, will plan for removal of peritoneal dialysis catheter. Neither Perm Cath nor Tenckhoff catheter sites appear infected. (3) HTN (hypertension) Plan: Resume home medications. Monitor & adjust as needed. BP elevated in house as he did not take medications for the past 2 days. (4) Hypercalcemia Plan: Uncertain etiology. Was previously on calcium acetate for phosphate binding, but was supposed to be discontinued at the beginning of the month. The patient himself is not a reliable historian and his is not certain what he is taking when she is at work. Will continue to hold this. Check iPTH , Vit D, PTHrP, serology. DDx includes medication related, hyperparathyroidism , and malignancy. (Isis Herman) Assessment and Plan The exam, history, and the medical decision-making described in the above note were completed with the assistance of the LISA. I reviewed and agree with the findings presented. I attest that I had a [id number] encounter with the patient on the same day, and personally performed and documented my assessment and findings in the medical record. Workup for hypercalcemia as ordered. Uncertain if patient was taking his calcium phosphate binding medication despite being instructed previously to discontinue same. Agree with vancomycin pending blood culture results. Reevaluate patient's clinical status post dialysis tomorrow with improvement in calcium and azotemia.. (Danita Maria MD) Isis Herman Jun 29, 2016 11:48 Danita Maria MD Jun 29, 2016 14:40
--- NOTE | 2016-06-29 12:06 | EKG ---
Date Performed: 06/29/2016 Time Performed: 10:59:19 PTAGE: 75 years EKG: ATRIAL FIBRILLATION NONSPECIFIC ST & T-WAVE ABNORMALITY ABNORMAL RHYTHM ECG INTERPRETATION BASED ON A DEFAULT AGE OF 40 YEARS PREVIOUS TRACING : 06/15/2016 10.04 DOCTOR: Rl Caceres Interpretating Date/Time 06/29/2016 12:05:15
[2016-06-29 12:28] LABS: KAPPA LAMBDA RATIO 2.07 (1.57-3.93); TOTAL PROTEIN SPE 7.2 GM/DL (6.0-7.6)
[2016-06-29] MEDS ORDERED: CALCIUM ACETATE 667 MG CAP PO SCH (13:00)
--- NOTE | 2016-06-29 14:41 | HHI.PR ---
Subjective Remarks Patient was seen during dialysis today. Dialysis catheter working well. Lungs clear to auscultation. Heart sounds 1 and 2 regular. Patient still confused however and appears encephalopathic. Objective Vital Signs Date Time Temp Pulse Resp B/P Pulse Ox O2 Delivery O2 Flow Rate FiO2 06/29/16 11:42 97 21 06/29/16 11:05 68 16 177/80 97 Room Air 06/29/16 10:04 77 20 161/91 97 Room Air 06/29/16 09:32 72 20 141/75 97 Room Air 06/29/16 09:18 57 18 223/90 98 Room Air 06/29/16 08:57 56 18 204/91 98 Room Air 06/29/16 08:07 63 20 187/109 96 Room Air 06/29/16 07:37 96 Room Air 06/29/16 07:31 74 20 96 Room Air 06/29/16 07:20 98.0 81 20 218/97 96 Result Diagram: 06/29/16 0738 06/29/16 0738 Danita Maria MD Jun 29, 2016 14:41
--- NOTE | 2016-06-29 15:25 | HHI.HP ---
HPI Service [facility] Hospitalists Primary Care Physician Nikolai Carrasquillo M.D. Admission Diagnosis uremic encephalopathy Chief Complaint: AMS Travel History International Travel<30 Days: No Contact w/Intl Traveler <30 Da: No Traveled to Known Affected Are: No History of Present Illness Pt is 75 y/o WM with ESRD on HD, atrial fibrillation on chronic anticoagulation with Coumadin, DM,and HTN.. [place] [facility] his dialysis center for hypotension and abdominal pain. Pt reported that his BP initially was about systolic 100 when he got to the HD center. They did 2 hours of hemodialysis but called [facility] to bring pt to ED when BP dropped to systolic in the 80s. When pt arrived to the ED his BP was 127/61 and his BP has been stable while in the ED. He also has a peritoneal dialysis catheter still in place and he reports that this was flushed with 1000cc of dialysate and then drained which is the first time it has been used since he was converted to HD at the end of April. He was converted to HD because they had been unable to get enough volume of fluid off of him with just PD and was having issues with LE edema. Pt was admitted at that time for intactable abdomen pain and had CT a/p. The next morning pain was resolved and he was sent home. today he presents with confusion and severe htn. given iv hydralazine and labetolol in ED. Sent to get HD. Pt had 1mg iv ativan. He continued to be agitated but made it through HD. He bp elevated again and he was still encephalopathic so transferred to ICU. Review of Systems Other confusion. Past Family Social History Past Medical History End-stage renal disease failed PD and now on HD Hypertension Atrial fibrillation Anemia renal disease. Diabetes mellitus Coronary artery disease Dyslipidemia Mild peripheral vascular disease by Doppler by history Hyperphosphatemia BPH Previous left renal cell carcinoma status post cryoablation in 2014 Appendectomy splenectomy Placement of a peritoneal dialysis catheter Placement of PermCath (05/10/16) Reported Medications Benazepril (Benazepril HCl) 40 Mg Tab 40 Mg PO DAILY Calcium Acetate (Phosphate Binder) 667 Mg Cap 1,334 Mg PO TID Claritin (Loratadine) 10 Mg Tab 10 Mg PO DAILY Warfarin 7.5 Mg Tab 7.5 Mg PO TUTHSA TAKE ONE TAB (7.5 MG) TUES, THURS, TUE Warfarin 5 Mg Tab 5 Mg PO SUMOWEFR TAKE 1 TAB (5MG) TUE, TUE, TUESDAY, TUESDAY Lasix (Furosemide) 40 Mg Tab 40 Mg PO BID Diphenhydramine (Diphenhydramine HCl) 25 Mg Tab 25 Mg PO Q6H PRN Vitamin E 400 Unit Cap 400 Units PO DAILY Flomax (Tamsulosin HCl) 0.4 Mg Cap 0.4 Mg PO DAILY Percocet (Oxycodone-Acetaminophen) 5-325 mg Tab 1 Tab PO Q6H PRN Multi-Vitamin/Minerals (Multiple Vitamins W/ Minerals) 1 Tab Tab 1 Tab PO DAILY [place] 3-6-9 Complex ([place] 3 Fatty Acids-[place] 6 FA) 1 Cap Cap 1 Cap PO TID Fluticasone Nasal [place] 50 Mcg/Act Naspr 50 Mcg EACH NARE DAILY 50 mcg/spray Proscar (Finasteride) 5 Mg Tab 5 Mg PO DAILY Do not crush. Iron (Ferrous Sulfate) 28 Mg Tab 45 Mg PO DAILY Lipitor (Atorvastatin Calcium) 10 Mg Tab 10 Mg PO HS Allergies: Coded Allergies: No Known Allergies (Verified , 06/15/16) Family History NC Social History NO ETOH/TOB Physical Exam Vital Signs CONFUSED. AWAKE GETTING HD HEART REG LUNG GOOD AIR ENTRY B ABD S/PD CATH. ND. BS EXT NO EDEMA Vital Signs Date Time Temp Pulse Resp B/P Pulse Ox O2 Delivery O2 Flow Rate FiO2 06/29/16 11:42 97 21 06/29/16 11:05 68 16 177/80 97 Room Air 06/29/16 10:04 77 20 161/91 97 Room Air 06/29/16 09:32 72 20 141/75 97 Room Air 06/29/16 09:18 57 18 223/90 98 Room Air 06/29/16 08:57 56 18 204/91 98 Room Air 06/29/16 08:07 63 20 187/109 96 Room Air 06/29/16 07:37 96 Room Air 06/29/16 07:31 74 20 96 Room Air 06/29/16 07:20 98.0 81 20 218/97 96 Laboratory Laboratory Tests Test 06/29/16 06/29/16 06/29/16 06/29/16 07:38 07:51 10:52 11:20 White Blood Count 13.5 Red Blood Count 3.57 Hemoglobin 11.4 Hematocrit 35.0 Mean Corpuscular Volume 97.9 Mean Corpuscular Hemoglobin 31.8 Mean Corpuscular Hemoglobin 32.5 Concent Red Cell Distribution Width 15.3 Platelet Count 430 Mean Platelet Volume 8.1 Neutrophils (%) (Auto) 80.7 Lymphocytes (%) (Auto) 8.9 Monocytes (%) (Auto) 7.7 Eosinophils (%) (Auto) 1.8 Basophils (%) (Auto) 0.9 Neutrophils # (Auto) 10.9 Lymphocytes # (Auto) 1.2 Monocytes # (Auto) 1.0 Eosinophils # (Auto) 0.3 Basophils # (Auto) 0.1 CBC Comment DIFF FINAL Differential Comment Prothrombin Time 21.2 Prothromb Time International 1.9 Ratio Sodium Level 133 Potassium Level 6.5 Chloride Level 99 Carbon Dioxide Level 21.8 Anion Gap 12 Blood Urea Nitrogen 107 Creatinine 7.62 Estimat Glomerular Filtration 7 Rate Random Glucose 101 Calcium Level 11.2 Urine Color YELLOW Urine Turbidity CLEAR Urine pH 7.5 Urine Specific [place] 1.010 Urine Protein 300 Urine Glucose (UA) NEG Urine Ketones NEG Urine Occult Blood NEG Urine Nitrite NEG Urine Bilirubin NEG Urine Urobilinogen LESS THAN 2.0 Urine Leukocyte Esterase NEG Urine RBC LESS THAN 1 Urine WBC 1 Microscopic Urinalysis Comment CATH-CULT NOT IND 25-Hydroxy Vitamin D Total 43.5 Parathyroid Hormone (Intact) 155.1 Total Creatine Kinase 222 Total Protein 7.2 Immunoglobulin G Total 1020 Immunoglobulin A 302 Immunoglobulin M 32 Immunoglobulin [place]/Lambda 2.07 Ratio [place] Light Chain Analysis 286 Lambda Light Chain Analysis 138 Date/Time Procedure Status Source Growth 06/29/16 10:52 Aerobic Blood Culture Received Blood Peripheral Pending 06/29/16 10:52 Anaerobic Blood Culture Received Blood Peripheral Pending Result Diagram: 06/29/16 0738 06/29/16 0738 Assessment and Plan Problem List: (1) Mental status change Status: Acute Plan: Pt has ESRD converted from PD to HD in April for ineffective fluid removal. He presents today with severe htn and encephalopathy. CT imaging in ED negative for ICH/CVA. exclude underlying sepsis. Pt seen in HD. He was becoming more unstable. I spoke with Dr Aguilera in ICU and transferred pt to his service for now IV abx vanc/rocephin started. blood cx taken. pd cath gs/cx ordered. prn iv blood pressure meds ordered. abg and blood work pending. (2) ESRD (end stage renal disease) on dialysis Status: Chronic Plan: consult nephrology. HD today (3) HTN (hypertension) Status: Chronic Plan: see above (4) BPH (benign prostatic hyperplasia) Status: Chronic Plan: home meds (5) Diabetes Status: Chronic Plan: ssi. (6) Atrial fibrillation Status: Chronic Plan: home meds as tolerated. Physician Certification 2 Midnight Certification Type: Admission for Inpatient Services Order for Inpatient Services 5The services are ordered in accordance with Medicare regulations or non- Medicare payer requirements, as applicable. In the case of services not specified as inpatient-only, they are appropriately provided as inpatient services in accordance with the 2-midnight benchmark. Estimated LOS (days): 5 5 days is the estimated time the patient will need to remain in the hospital, assuming treatment plan goals are met and no additional complications. Post-Hospital Plan: Not yet determined Javy Hudson MD Jun 29, 2016 15:25
[2016-06-29 15:55] LABS: BLOOD GAS BASE EXCESS 3.5 mmol/L (-2-2); BLOOD GAS CARBOXYHEMOGLOBIN 1.6 % (0-4); BLOOD GAS HCO3 28 mmol/L (22-26); BLOOD GAS METHEMOGLOBIN 1.8 % (0-2); BLOOD GAS O2 HGB SATURATION 91 % (90-100); BLOOD GAS OXYGEN CONTENT 13.4 Vol % (12.0-20.0); BLOOD GAS PCO2 43 mmHg (38-42); BLOOD GAS PO2 75 mmHg (61-120); BLOOD GAS TOTAL HGB 10.5 G/DL (12.0-16.0); CRITICAL VALUE NO; DRAW SITE RT RADIAL; LITER FLOW 2.5 L/M; NUMBER OF ARTERIAL PUNCTURES 1; OXYGEN DEVICE NASAL CANNULA; STAT YES; TEMP CORR TO 98.6
[2016-06-29] MEDS: WARFARIN SOD 7.5 MG TAB PO SCH (16:00)
[2016-06-29] MEDS ORDERED: hydrALAZINE HCL 20 MG/ML VIAL IV PUSH PRN (16:00)
--- NOTE | 2016-06-29 16:16 | PD.CONS ---
[facility] Service Critical Care Medicine Consult Requested By Dr. Membreno Reason for Consult Acute metabolic encephalopathy due to PRES vs severe sepsis Hypertensive emergency Severe sepsis Primary Care Physician Nikolai Carrasquillo M.D. History of Present Illness The patient is a 75 yo male with past medical history significant for end-stage renal disease, previously on peritoneal dialysis started on hemodialysis since April 2016, Hypertension, DM-2, CAD, previous left renal cell carcinoma status post cryoablation in 2014 who sustained a fall from his wheelchair yesterday. This was not witnessed and patient was on the floor when patient's came back from work. When he woke up for his HD today he was mentally altered. EMS brought him in to [facility] for evaluation. CT of head that was negative for acute findings. BP elevated, 218/97 on presentation. Patient received IV hydralazine and IV labetalol in the ED. For suspected sepsis patient also received IV vancomycin and IV Rocephin in the ED. Patient was agitated in the ED and was given 1 mg of Ativan. Nephrology was consulted for dialysis. Patient was taken to hemodialysis where a total of 1.5 L net fluid was removed. During and post dialysis patient remained agitated encephalopathic. His white count was 13.5 with 81% neutrophils. Critical care medicine was consulted for severe sepsis and acute metabolic encephalopathy. His encephalopathy could be secondary to sepsis or PRES I evaluated the patient in the ICU. He appears in moderate distress he's agitated moving all extremities encephalopathic and cannot answer questions. Vancomycin will be continued on ceftriaxone will be changed to cefepime. Patient is not spiking fever and I do not think he needs a lumbar puncture at this time Review of Systems ROS Limitations: Altered Mental Status Past Family Social History Allergies: Coded Allergies: No Known Allergies (Verified , 06/15/16) Past Medical History End-stage renal disease failed PD and now on HD since 04/2016 Hypertension Anemia of CKD Diabetes mellitus Coronary artery disease Dyslipidemia Mild peripheral vascular disease Hyperphosphatemia BPH Previous left renal cell carcinoma status post cryoablation in 2014 Past Surgical History Appendectomy Splenectomy Placement of a peritoneal dialysis catheter. Reported Medications Hydralazine (Hydralazine HCl) 25 Mg Tab 25 Mg PO BID Benazepril (Benazepril HCl) 40 Mg Tab 40 Mg PO DAILY Calcium Acetate (Phosphate Binder) 667 Mg Cap 1,334 Mg PO TID Claritin (Loratadine) 10 Mg Tab 10 Mg PO DAILY Warfarin 7.5 Mg Tab 7.5 Mg PO TUTHSA Warfarin 5 Mg Tab 5 Mg PO SUMOWEFR Lasix (Furosemide) 40 Mg Tab 40 Mg PO BID Diphenhydramine (Diphenhydramine HCl) 25 Mg Tab 25 Mg PO Q6H PRN Vitamin E 400 Unit Cap 400 Units PO DAILY Flomax (Tamsulosin HCl) 0.4 Mg Cap 0.4 Mg PO DAILY Percocet (Oxycodone-Acetaminophen) 5-325 mg Tab 1 Tab PO Q6H PRN Multi-Vitamin/Minerals (Multiple Vitamins W/ Minerals) 1 Tab Tab 1 Tab PO DAILY [place] 3-6-9 Complex ([place] 3 Fatty Acids-[place] 6 FA) 1 Cap Cap 1 Cap PO TID Fluticasone Nasal Warner 50 Mcg/Act Naspr 50 Mcg EACH NARE DAILY Proscar (Finasteride) 5 Mg Tab 5 Mg PO DAILY Iron (Ferrous Sulfate) 28 Mg Tab 45 Mg PO DAILY Lipitor (Atorvastatin Calcium) 10 Mg Tab 10 Mg PO HS Active Ordered Medications Reviewed Family History Reviewed Social History No alcohol or tobacco use Physical Exam Vital Signs Vital Signs Date Time Temp Pulse Resp B/P Pulse Ox O2 Delivery O2 Flow Rate FiO2 06/29/16 11:42 97 21 06/29/16 11:05 68 16 177/80 97 Room Air 06/29/16 10:04 77 20 161/91 97 Room Air 06/29/16 09:32 72 20 141/75 97 Room Air 06/29/16 09:18 57 18 223/90 98 Room Air 06/29/16 08:57 56 18 204/91 98 Room Air 06/29/16 08:07 63 20 187/109 96 Room Air 06/29/16 07:37 96 Room Air 06/29/16 07:31 74 20 96 Room Air 06/29/16 07:20 98.0 81 20 218/97 96 Physical Exam GENERAL: Patient is moving about, severely encephalopathic SKIN: Warm and dry. HEAD: Atraumatic. Normocephalic. EYES: Pupils equal and round, reactive ENT: No nasal bleeding or discharge. Mucous membranes dry NECK: Trachea midline. No JVD. CARDIOVASCULAR: Regular rate and rhythm. RESPIRATORY: Air entry is equal bilaterally with bilateral coarse breath sounds. GASTROINTESTINAL: Abdomen soft, non-tender, mildly distended. Hepatic and splenic margins not palpable. PD catheter in place MUSCULOSKELETAL: Extremities without clubbing, cyanosis, or edema. No obvious deformities. NEUROLOGICAL: Awake and alert. Not oriented, confused muffled speech. Agitated and hyperactive Laboratory Laboratory Tests Test 06/29/16 06/29/16 06/29/16 06/29/16 07:38 07:51 10:52 11:20 White Blood Count 13.5 Red Blood Count 3.57 Hemoglobin 11.4 Hematocrit 35.0 Mean Corpuscular Volume 97.9 Mean Corpuscular Hemoglobin 31.8 Mean Corpuscular Hemoglobin 32.5 Concent Red Cell Distribution Width 15.3 Platelet Count 430 Mean Platelet Volume 8.1 Neutrophils (%) (Auto) 80.7 Lymphocytes (%) (Auto) 8.9 Monocytes (%) (Auto) 7.7 Eosinophils (%) (Auto) 1.8 Basophils (%) (Auto) 0.9 Neutrophils # (Auto) 10.9 Lymphocytes # (Auto) 1.2 Monocytes # (Auto) 1.0 Eosinophils # (Auto) 0.3 Basophils # (Auto) 0.1 CBC Comment DIFF FINAL Differential Comment Prothrombin Time 21.2 Prothromb Time International 1.9 Ratio Sodium Level 133 Potassium Level 6.5 Chloride Level 99 Carbon Dioxide Level 21.8 Anion Gap 12 Blood Urea Nitrogen 107 Creatinine 7.62 Estimat Glomerular Filtration 7 Rate Random Glucose 101 Calcium Level 11.2 Urine Color YELLOW Urine Turbidity CLEAR Urine pH 7.5 Urine Specific [place] 1.010 Urine Protein 300 Urine Glucose (UA) NEG Urine Ketones NEG Urine Occult Blood NEG Urine Nitrite NEG Urine Bilirubin NEG Urine Urobilinogen LESS THAN 2.0 Urine Leukocyte Esterase NEG Urine RBC LESS THAN 1 Urine WBC 1 Microscopic Urinalysis Comment CATH-CULT NOT IND 25-Hydroxy Vitamin D Total 43.5 Parathyroid Hormone (Intact) 155.1 Total Creatine Kinase 222 Total Protein 7.2 Immunoglobulin G Total 1020 Immunoglobulin A 302 Immunoglobulin M 32 Immunoglobulin Hackett/Lambda 2.07 Ratio Hackett Light Chain Analysis 286 Lambda Light Chain Analysis 138 Test 06/29/16 15:45 Blood Gas Puncture Site RT RADIAL Blood Gas Patient Temperature 98.6 Blood Gas HCO3 28 Blood Gas Base Excess 3.5 Blood Gas Oxygen Saturation 91 Arterial Blood pH 7.43 Arterial Blood Partial 43 Pressure CO2 Arterial Blood Partial 75 Pressure O2 Arterial Blood Oxygen Content 13.4 Arterial Blood 1.6 Carboxyhemoglobin Arterial Blood Methemoglobin 1.8 Blood Gas Hemoglobin 10.5 Oxygen Delivery Device NASAL CANNULA Blood Gas Liter Flow 2.5 Date/Time Procedure Status Source Growth 06/29/16 10:52 Aerobic Blood Culture Received Blood Peripheral Pending 06/29/16 10:52 Anaerobic Blood Culture Received Blood Peripheral Pending Result Diagram: 06/29/16 0738 06/29/[address] head no acute findings X-ray of the right wrist no acute fracture Septic Shock Reassessment Heart: Regular rate and rhythm Lungs: Course Skin: Warm Peripheral Pulses: Bounding Right Radial Bounding Left Radial Capillary Refill: Brisk Assessment and Plan Assessment and Plan NEURO: Acute metabolic encephalopathy secondary to sepsis versus PRES Hyperactive Delirium -Acute confusion and agitation secondary to metabolic encephalopathy -Most likely secondary to sepsis, cannot rule out PRES -Use Ativan when necessary for agitation if not controlled. Precedex if needed -MRI of the brain if not improving in 24 hours RESP: Respiratory insufficiency -DuoNeb every 6 hours when necessary -Aggressive pulmonary toilet -Explained to need for intubation for airway protection if the mental status deteriorates CV: Hypertensive emergency Atrial fibrillation Coronary artery disease History of hypertension Dyslipidemia -Received IV labetalol and hydralazine for uncontrolled hypertension -Use Cardene infusion if needed to keep systolic blood pressure less than 170 -Hold all home antihypertensives at this time -Hold Coumadin for 24 hours GI: -Nothing by mouth except meds, IV Protonix for GI prophylaxis : End-stage renal disease on hemodialysis Peritoneal dialysis catheter in place -Monitor renal function closely. He catheter. Status post hemodialysis today with Dr. Maria removed 1.5 L -Repeat CMP now ID: Severe sepsis -IV vancomycin, cefepime. Blood cultures have been sent -CXR no acute infiltrate HEME: Chronic Coumadin use -Monitor CBC, CMP, INR -Chronic Coumadin. INR slightly subtherapeutic at 1.9 ENDO: DM-2 -Electrolyte replacement as needed -Sliding scale insulin PROPH: -Bilateral lower extremity SCDs. INR 1.9 will provide DVT prophylaxis LINES: -Utilize peripheral IVs, central line if needed CC time 60 min Code Status Full Discussed Condition With Den Valero MD Jun 29, 2016 16:15
[2016-06-29] MEDS ORDERED: cefTRIAXone INJ 1,000 MG in SODIUM CHLORIDE 0.9% INJ 100 ML IV SCH (17:00)
[2016-06-29] MEDS: LORazepam 2 MG/ML VIAL IV PUSH PRN (17:23)
--- NOTE | 2016-06-29 17:41 | RADRPT ---
EXAM DATE/TIME: 06/29/2016 16:52 [facility] COMPARISON: CHEST SINGLE AP, June 15, 2016, 9:44. INDICATIONS : Respiratory disease. MEDICAL HISTORY : Diabetes mellitus type 2. Hypertension. Cardiovascular disease SURGICAL HISTORY : Appendectomy. Vas-Cath ENCOUNTER: Initial ACUITY: 1 day PAIN SCORE: Non-responsive. LOCATION: Bilateral chest FINDINGS: A right internal jugular tunneled dialysis catheter has its tips in the right atrium and junction of the right atrium and superior vena cava. There is no pneumothorax. The heart is enlarged. The pulm onary vascular pattern is normal. The lungs are clear. CONCLUSION: 1. Cardiomegaly. 2. No acute focal pulmonary infiltrate or pulmonary vascular congestion. Winston Grande MD on June 29, 2016 at 17:37 Board Certified Radiologist. This report was verified electronically.
[2016-06-29] MEDS: VANCOMYCIN INJ 1,000 MG in SODIUM CHLOR 0.9% 250 ML INJ 250 ML IV SCH (17:45)
[2016-06-29] MEDS ORDERED: CHLORHEXIDINE GLUCONATE 2 % 1 PACK (2 CLOTHS)(extra cloths) TOP PRN (17:45)
[2016-06-29] MEDS: HEPARIN SODIUM - IV 10,000 UNITS/10 ML VIAL PRN (17:45)
[2016-06-29] MEDS: GENTAMICIN SULFATE (DIALYSIS USE ONLY) 20 MG/2 ML VIAL IV PRN (17:46)
[2016-06-29] MEDS: SODIUM CHLOR 0.9% 1000 ML INJ 1,000 ML IV PRN (17:46)
[2016-06-29] MEDS: CEFEPIME INJ 1,000 MG in SODIUM CHLORIDE 0.9% INJ 100 ML IV SCH (18:00)
[2016-06-29 18:06] LABS: AUTOMATED NEUTROPHIL # 12.4 TH/MM3 (1.8-7.7); BASOPHIL # 0.1 TH/MM3 (0-0.2); BASOPHIL % 0.5 % (0.0-2.0); EOSINOPHIL % 0.3 % (0.0-4.0); HEMATOCRIT 32.2 % (39.0-51.0); HEMO FLAGS DIFF FINAL; LYMPH % 4.8 % (9.0-44.0); LYMPHOCYTE # 0.7 TH/MM3 (1.0-4.8); MEAN CELL VOLUME 97.3 FL (80.0-100.0); MEAN CORPUSCULAR HEMOGLOBIN 31.6 PG (27.0-34.0); MEAN CORPUSCULAR HGB CONC 32.5 % (32.0-36.0); MONO % 5.7 % (0.0-8.0); NEUT % 88.7 % (16.0-70.0); PLATELET COUNT 395 TH/MM3 (150-450); RED BLOOD COUNT 3.31 MIL/MM3 (4.50-5.90); RED CELL DISTRIBUTION WIDTH 15.4 % (11.6-17.2); WHITE BLOOD COUNT 13.9 TH/MM3 (4.0-11.0)
[2016-06-29 18:50] LABS: ALKALINE PHOSPHATASE 136 U/L (45-117); ALT (GPT) 22 U/L (12-78); ANION GAP 15 MEQ/L (5-15); AST (GOT) 19 U/L (15-37); BICARBONATE 26.2 MEQ/L (21.0-32.0); BLOOD UREA NITROGEN 41 MG/DL (7-18); CHLORIDE 98 MEQ/L (98-107); GLOMERULAR FILTRATION RATE 16 ML/MIN (>89); SODIUM (NA) 139 MEQ/L (136-145)
[2016-06-29] MEDS: DEXMEDETOMIDINE INJ 50 ML IV SCH ×2 (20:38→23:36)
[2016-06-29] MEDS: LABETALOL HCL 100 MG/20 ML VIAL IV PUSH PRN (20:40)
[2016-06-29] MEDS ORDERED: FUROSEMIDE 40 MG TAB PO SCH (21:00)
[2016-06-29] MEDS: hydrALAZINE HCL 25 MG TAB PO SCH (21:00)
[2016-06-29] MEDS: ATORVASTATIN 10 MG TAB PO SCH (21:00)
[2016-06-29 21:56] LABS: BLOOD GAS BASE EXCESS -0.5 mmol/L (-2-2); BLOOD GAS CARBOXYHEMOGLOBIN 1.8 % (0-4); BLOOD GAS HCO3 24 mmol/L (22-26); BLOOD GAS METHEMOGLOBIN 2.2 % (0-2); BLOOD GAS O2 HGB SATURATION 89 % (90-100); BLOOD GAS OXYGEN CONTENT 13.8 Vol % (12.0-20.0); BLOOD GAS PCO2 40 mmHg (38-42); BLOOD GAS PO2 70 mmHg (61-120); TEMP CORR TO 98.6
[2016-06-29 21:57] LABS: CRITICAL VALUE YES; DRAW SITE RT RADIAL; FIO2 36 %; LITER FLOW 4 L/M; NUMBER OF ARTERIAL PUNCTURES 1; OXYGEN DEVICE NASAL CANNULA; STAT YES; ULNAR PULSE PRESENT
[2016-06-29 22:07] LABS: ALBUMIN SPE 4.54 GM/DL (3.50-5.00); ALPHA 1 GLOBULIN 0.25 GM/DL (0.11-0.29); ALPHA 2 GLOBULIN 0.85 GM/DL (0.22-1.00); BETA GLOBULINS (SPE) 0.66 GM/DL (0.53-1.03)
[2016-06-29] MEDS: FUROSEMIDE 40 MG/4 ML VIAL IV SCH (23:36)
[2016-06-29] MEDS: CALCITONIN SALMON INJ 400 UNITS/2 ML VIAL SQ SCH (23:36)
[2016-06-30] VITALS (12 sets, daily range): BP systolic 85–187; BP diastolic 47–142; PULSE 51–82; RESP 21–33; TEMP 98.2–99.1; O2SAT 87–100
[2016-06-30] MEDS: LABETALOL HCL 100 MG/20 ML VIAL IV PUSH PRN ×3 (01:02→19:24)
[2016-06-30] MEDS: niCARdipine INJ 25 MG in SODIUM CHLOR 0.9% 250 ML INJ 250 ML IV SCH ×3 (01:56→23:40)
[2016-06-30] MEDS: DEXMEDETOMIDINE INJ 50 ML IV SCH (03:01)
[2016-06-30 03:55] LABS: BLOOD GAS BASE EXCESS -1.6 mmol/L (-2-2); BLOOD GAS CARBOXYHEMOGLOBIN 1.4 % (0-4); BLOOD GAS HCO3 25 mmol/L (22-26); BLOOD GAS METHEMOGLOBIN 1.8 % (0-2); BLOOD GAS O2 HGB SATURATION 93 % (90-100); BLOOD GAS OXYGEN CONTENT 13.8 Vol % (12.0-20.0); BLOOD GAS PCO2 58 mmHg (38-42); BLOOD GAS PO2 111 mmHg (61-120); BLOOD GAS TOTAL HGB 10.4 G/DL (12.0-16.0); CRITICAL VALUE YES; DRAW SITE RT RADIAL; FIO2 100 %; LITER FLOW 15 L/M; NUMBER OF ARTERIAL PUNCTURES 1; OXYGEN DEVICE NRB; STAT NO; TEMP CORR TO 98.6; ULNAR PULSE PRESENT
[2016-06-30] MEDS: CHLORHEXIDINE GLUCONATE 2 % 1 PACK (2 CLOTHS)(taper/protocol) TOP SCH (04:00)
[2016-06-30 05:15] LABS: HEMATOCRIT 28.7 % (39.0-51.0); MEAN CELL VOLUME 97.9 FL (80.0-100.0); MEAN CORPUSCULAR HEMOGLOBIN 32.1 PG (27.0-34.0); MEAN CORPUSCULAR HGB CONC 32.8 % (32.0-36.0); PLATELET COUNT 377 TH/MM3 (150-450); RED BLOOD COUNT 2.93 MIL/MM3 (4.50-5.90); RED CELL DISTRIBUTION WIDTH 15.5 % (11.6-17.2); REVIEW FLAG FINAL; WHITE BLOOD COUNT 13.9 TH/MM3 (4.0-11.0)
[2016-06-30 05:23] LABS: INTERNATIONAL NORMALIZED RATIO 1.6 RATIO; PROTHROMBIN TIME - PATIENT 18.6 SEC (9.8-11.6)
[2016-06-30 05:40] LABS: BICARBONATE 27.8 MEQ/L (21.0-32.0)
[2016-06-30 05:47] LABS: BLOOD GAS BASE EXCESS -1.1 mmol/L (-2-2); BLOOD GAS CARBOXYHEMOGLOBIN 1.6 % (0-4); BLOOD GAS HCO3 24 mmol/L (22-26); BLOOD GAS METHEMOGLOBIN 1.7 % (0-2); BLOOD GAS O2 HGB SATURATION 96 % (90-100); BLOOD GAS OXYGEN CONTENT 13.6 Vol % (12.0-20.0); BLOOD GAS PCO2 43 mmHg (38-42); BLOOD GAS PO2 188 mmHg (61-120); BLOOD GAS TOTAL HGB 9.8 G/DL (12.0-16.0); CRITICAL VALUE NO; OXYGEN DEVICE BIPAP; TEMP CORR TO 98.6
[2016-06-30 05:48] LABS: DRAW SITE RT RADIAL; FIO2 50 %; NUMBER OF ARTERIAL PUNCTURES 1; STAT NO; ULNAR PULSE PRESENT; VENT SETTINGS IPAP 15/ EPAP 5
[2016-06-30] MEDS: CEFEPIME INJ 1,000 MG in SODIUM CHLORIDE 0.9% INJ 100 ML IV SCH (06:29)
--- NOTE | 2016-06-30 06:34 | HHI.CCPN ---
Subjective Remarks/Hospital Course The patient is a 75 yo male with past medical history significant for end-stage renal disease, previously on peritoneal dialysis started on hemodialysis since April 2016, Hypertension, DM-2, CAD, previous left renal cell carcinoma status post cryoablation in 2014 who sustained a fall from his wheelchair yesterday. This was not witnessed and patient was on the floor when patient's came back from work. When he woke up for his HD today he was mentally altered. EMS brought him in to [facility] for evaluation. CT of head that was negative for acute findings. BP elevated, 218/97 on presentation. Patient received IV hydralazine and IV labetalol in the ED. For suspected sepsis patient also received IV vancomycin and IV Rocephin in the ED. Patient was agitated in the ED and was given 1 mg of Ativan. Nephrology was consulted for dialysis. Patient was taken to hemodialysis where a total of 1.5 L net fluid was removed. During and post dialysis patient remained agitated encephalopathic. His white count was 13.5 with 81% neutrophils. Critical care medicine was consulted for severe sepsis and acute metabolic encephalopathy. His encephalopathy could be secondary to sepsis or PRES. I evaluated the patient in the ICU. He appears in moderate distress he's agitated moving all extremities encephalopathic and cannot answer questions. Vancomycin will be continued on ceftriaxone will be changed to cefepime. Patient is not spiking fever and I do not think he needs a lumbar puncture at this time 06/30: Overnight became lethargic and hypercapnic. PH was 7.25 with a PCO2 of 58. Patient placed on BiPAP with improvement in symptoms. When I evaluated today a.m. patient was more oriented following commands but remained on BiPAP Objective Vital Signs Date Time Temp Pulse Resp B/P Pulse Ox O2 Delivery O2 Flow Rate FiO2 06/30/16 05:55 100 35 06/30/16 04:00 Bi-Pap 06/30/16 04:00 98.2 51 30 85/47 06/30/16 03:50 15.00 Intake and Output 06/29/16 06/29/16 06/30/16 08:00 16:00 00:00 Intake Total 176 ml Output Total 3301 ml Balance -3125 ml Result Diagram: 06/30/16 0436 06/30/16 0436 Other Results Laboratory Tests Test 06/29/16 06/29/16 06/30/16 06/30/16 15:45 21:45 03:35 05:32 Blood Gas Puncture Site RT RADIAL RT RADIAL RT RADIAL RT RADIAL Blood Gas Patient Temperature 98.6 98.6 98.6 98.6 Blood Gas HCO3 28 mmol/L 24 mmol/L 25 mmol/L 24 mmol/L (22-26) (22-26) (22-26) (22-26) Blood Gas Base Excess 3.5 mmol/L -0.5 mmol/L -1.6 mmol/L -1.1 mmol/L (-2-2) (-2-2) (-2-2) (-2-2) Blood Gas Oxygen Saturation 91 % (90-100) 89 % (90-100) 93 % (90-100) 96 % (90- 100) Arterial Blood pH 7.43 7.40 7.25 7.36 (7.380-7.420) (7.380-7.420) (7.380-7.420) (7.380-7.420) Arterial Blood Partial 43 mmHg (38-42) 40 mmHg (38-42) 58 mmHg (38-42) 43 mmHg ( 38-42) Pressure CO2 Arterial Blood Partial 75 mmHg 70 mmHg 111 mmHg 188 mmHg Pressure O2 (61-120) (61-120) (61-120) (61-120) Arterial Blood Oxygen Content 13.4 Vol % 13.8 Vol % 13.8 Vol % 13.6 Vol % (12.0-20.0) (12.0-20.0) (12.0-20.0) (12.0-20.0) Arterial Blood 1.6 % (0-4) 1.8 % (0-4) 1.4 % (0-4) 1.6 % (0-4) Carboxyhemoglobin Arterial Blood Methemoglobin 1.8 % (0-2) 2.2 % (0-2) 1.8 % (0-2) 1.7 % (0-2) Blood Gas Hemoglobin 10.5 G/DL 11.0 G/DL 10.4 G/DL 9.8 G/DL (12.0-16.0) (12.0-16.0) (12.0-16.0) (12.0-16.0) Oxygen Delivery Device NASAL CANNULA NASAL CANNULA NRB BIPAP Blood Gas Liter Flow 2.5 L/M 4 L/M 15 L/M Blood Gas Inspired Oxygen 36 % 100 % 50 % Blood Gas Ventilator Setting IPAP 15/ EPAP [address] head no acute findings X-ray of the right wrist no acute fracture Objective Remarks GENERAL: Patient is moving about, following commands on BiPAP SKIN: Warm and dry. HEAD: Atraumatic. Normocephalic. EYES: Pupils equal and round, reactive ENT: No nasal bleeding or discharge. Mucous membranes dry. On BiPAP NECK: Trachea midline. No JVD. CARDIOVASCULAR: Regular rate and rhythm. RESPIRATORY: Air entry is equal bilaterally with bilateral coarse breath sounds. GASTROINTESTINAL: Abdomen soft, non-tender, mildly distended. Hepatic and splenic margins not palpable. PD catheter in place MUSCULOSKELETAL: Extremities without clubbing, cyanosis, or edema. No obvious deformities. NEUROLOGICAL: Awake and alert, oriented and following commands A/P Assessment and Plan NEURO: Acute metabolic encephalopathy secondary to sepsis versus PRES Hyperactive Delirium -Acute confusion and agitation secondary to metabolic encephalopathy -Most likely secondary to sepsis, cannot rule out PRES -Use Ativan when necessary for agitation if not controlled. Precedex if needed -MRI of the brain if not improving in 24 hours RESP: Hypercapnic respiratory failure -BiPAP as needed -DuoNeb every 6 hours when necessary -Aggressive pulmonary toilet -Explained to need for intubation for airway protection if the mental status deteriorates CV: Hypertensive emergency Atrial fibrillation Coronary artery disease History of hypertension Dyslipidemia -Received IV labetalol and hydralazine for uncontrolled hypertension -Use Cardene infusion if needed to keep systolic blood pressure less than 170 -Resume home antihypertensives at this time -Resume Coumadin GI: -Nothing by mouth except meds, IV Protonix for GI prophylaxis : End-stage renal disease on hemodialysis Peritoneal dialysis catheter in place -Monitor renal function closely. He catheter. Status post hemodialysis 06/[address] Maria removed 1.5 L -Repeat CMP now ID: Severe sepsis -IV vancomycin, cefepime. Blood cultures have been sent-follow up -CXR no acute infiltrate HEME: Chronic Coumadin use -Monitor CBC, CMP, INR -Chronic Coumadin. INR slightly subtherapeutic at 1.9 ENDO: DM-2 -Electrolyte replacement as needed -Sliding scale insulin PROPH: -Bilateral lower extremity SCDs. INR 1.9 will provide DVT prophylaxis, resume Coumadin and consult pharmacy LINES: -Utilize peripheral IVs, central line if needed Level 3. Dr Membreno to assume care in am 07/01 Den Aguilera MD Jun 30, 2016 06:34
[2016-06-30] MEDS ORDERED: HALOPERIDOL LACTATE 5 MG/ML AMP IV PRN (06:45)
--- NOTE | 2016-06-30 08:22 | RADRPT ---
EXAM DATE/TIME: 06/30/2016 07:11 [facility] COMPARISON: CHEST SINGLE AP, June 29, 2016, 16:52. INDICATIONS: Respiratory Disease. MEDICAL HISTORY: Diabetes mellitus type 2. Hypertension. Cardiovascular disease SURGICAL HISTORY: Appendectomy. ENCOUNTER: Subsequent ACUITY: 2 days PAIN SCORE: 0/10 LOCATION: Bilateral chest FINDINGS: A right internal jugular tunneled dialysis catheter has its tips in the right atrium and junction of the right atrium and superior vena cava and is stable. The heart is enlarged. The lungs are clear. CONCLUSION: 1. Cardiomegaly. 2. No acute focal pulmonary infiltrate or pulmonary vascular congestion. Winston Grande MD on June 30, 2016 at 8:11 Board Certified Radiologist. This report was verified electronically.
[2016-06-30] MEDS: amLODIPine BESYLATE 5 MG TAB PO SCH (08:46)
[2016-06-30] MEDS: FUROSEMIDE 40 MG/4 ML VIAL IV SCH ×2 (08:46→19:23)
[2016-06-30] MEDS: TAMSULOSIN HCL 0.4 MG CAP PO SCH (08:47)
[2016-06-30] MEDS: LORATADINE 10 MG TAB PO SCH (08:47)
[2016-06-30] MEDS: hydrALAZINE HCL 25 MG TAB PO SCH ×2 (08:47→19:23)
[2016-06-30] MEDS: FINASTERIDE 5 MG TAB PO SCH (08:47)
--- NOTE | 2016-06-30 08:54 | HHI.NPPN ---
Subjective History of Present Illness The patient is a 75 yo [place] male who is known to our services for ESRD. According to reports from his , he was in his normal state of health all yesterday besides a fall from his wheelchair. This was not witnessed as she was at work, but he fell on R wrist. Was on the floor when she came home from work and it is not clear at the present how long he was on the ground. States this AM she woke him up for transportation to his HD treatment, and he was mentally altered. EMS was [place] transport [place] [facility]. Has has CT of head that was negative for stroke. BP quite elevated. Has been previously instructed to hold BP medications on HD days, but to take as scheduled on non-HD days, but given his fall yesterday, it is not certain if he took any of his BP medications. Seen in ED room and the patient himself if oriented to person and place, but not time. He is very agitated saying he wants to get up out of the bed. Does keep pointing to his right wrist saying it hurts. Interval History Pt a little more alert today. Is now in IMC. On abx currently. Awaiting BCx results. On Cardene drip as per smog technician (Isis Herman) Review of Systems Musculoskeletal MS Remarks R wrist pain (Isis Herman) Objective Data Data 06/29/16 06/30/16 19:00 07:00 Intake Total 396 ml Output Total 2500 ml 952 ml Balance -2500 ml -556 ml Intake Oral 0 ml IV Total 396 ml Other 0 ml Output Urine Total 950 ml Stool Total 2 ml Hemodialysis 2500 ml Vital Signs Date Time Temp Pulse Resp B/P Pulse Ox O2 Delivery O2 Flow Rate FiO2 06/30/16 07:30 97 Nasal Cannula 6.00 06/30/16 05:55 100 35 06/30/16 04:29 99 50 06/30/16 04:00 98 Bi-Pap 06/30/16 04:00 98.2 51 30 85/47 98 06/30/16 03:50 96 Non-Rebreather 15.00 100 06/30/16 00:00 98.6 74 25 174/83 94 06/30/16 00:00 97 Nasal Cannula 4.00 06/29/16 20:52 95 Nasal Cannula 4.00 06/29/16 20:00 99 06/29/16 20:00 98.9 60 16 147/68 97 06/29/16 20:00 97 Nasal Cannula 4.00 06/29/16 11:42 97 21 06/29/16 11:05 68 16 177/80 97 Room Air 06/29/16 10:04 77 20 161/91 97 Room Air 06/29/16 09:32 72 20 141/75 97 Room Air 06/29/16 09:18 57 18 223/90 98 Room Air 06/29/16 08:57 56 18 204/91 98 Room Air (Isis Herman) -: 06/30/16 0436 06/30/16 0436 Microbiology 06/29/16 Aerobic Blood Culture, Received Pending 06/29/16 Anaerobic Blood Culture, Received Pending 06/29/16 Aerobic Blood Culture, Received Pending 06/29/16 Anaerobic Blood Culture, Received Pending 06/29/16 Aerobic Blood Culture, Received Pending 06/29/16 Anaerobic Blood Culture, Received Pending Imaging Last Impressions Head CT 06/29/16 0733 Signed Impressions: Service Date/Time: Wednesday, June 29, 2016 08:30 - CONCLUSION: 1. No acute intracranial abnormality. 2. Scattered mucous retention cysts within the left maxillary sinus. Winston Grande MD Wrist X-Ray 06/29/16 0000 Signed Impressions: Service Date/Time: Wednesday, June 29, 2016 08:24 - CONCLUSION: 1. Bony remodeling in the distal radial diaphysis with a regional sideplate and osseous screws characteristic for an old healed fracture injury. 2. Accessory ossification versus old avulsion injury of the ulnar styloid. 3. No acute fracture. 4. Osteoarthritis of the first CMC joint. Addy Almazan MD Chest X-Ray 06/29/16 0000 Signed Impressions: Service Date/Time: Wednesday, June 29, 2016 16:52 - CONCLUSION: 1. Cardiomegaly. 2. No acute focal pulmonary infiltrate or pulmonary vascular congestion. Winston Grande MD Tubes & Lines: Perma-Cath, Tenckhoff Catheter Medication Review Current Medications Medications (Trade) Dose Ordered Sig/Terra Route Start Time Stop Time Status Last Admin (NS 1000 ml Inj) 1,000 ml @ 0 mls/hr Q0M PRN IV 06/29/16 10:03 06/29/16 17:46 Heparin Sodium (Porcine) 8000 units 8,000 units UNSCH PRN IVF 06/29/16 10:15 Sodium Chloride 1,000 ml @ 200 mls/hr Q5H PRN IV 06/29/16 10:03 (NS 1000 ml Inj) 1,000 ml @ 0 mls/hr Q0M PRN IV 06/29/16 10:03 (Mannitol Inj) 12.5 gm UNSCH PRN IV 06/29/16 10:15 (Albumin 25% Inj) 25 gm UNSCH PRN IV 06/29/16 10:15 (NS Flush) 5 ml UNSCH PRN IV FLUSH 06/29/16 10:15 (Heparin Inj) UNSCH PRN .XX 06/29/16 10:15 06/29/16 17:45 (Gentamicin (Dialysis) Inj) 20 mg UNSCH PRN IV 06/29/16 10:15 06/29/16 17:46 (Zofran Inj) 4 mg UNSCH PRN IV 06/29/16 10:15 (Tylenol) 650 mg UNSCH PRN PO 06/29/16 10:15 (Benadryl) 25 mg UNSCH PRN PO 06/29/16 10:15 (Nitrostat Sl) 0.4 mg UNSCH PRN SL 06/29/16 10:15 (Catapres) 0.1 mg UNSCH PRN PO 06/29/16 10:15 (Gelfoam 12 Mm/7 Mm Top) 1 foam UNSCH PRN TOP 06/29/16 10:15 (Lipitor) 10 mg HS PO 06/29/16 21:00 (Proscar) 5 mg DAILY PO 06/30/16 09:00 (Flonase Mario Spr) 1 spray DAILY EACH NARE 06/30/16 09:00 (Apresoline) 25 mg BID PO 06/29/16 21:00 (Claritin) 10 mg DAILY PO 06/30/16 09:00 (Percocet 5-325 Mg) 1 tab Q6H PRN PO 06/29/16 10:15 (Flomax) 0.4 mg DAILY PO 06/30/16 09:00 (Coumadin) 5 mg SuMoWeFr@16 PO 06/30/16 16:00 (Coumadin) 7.5 mg TuThSa@16 PO 06/29/16 16:00 Hold (Norvasc) 5 mg DAILY PO 06/30/16 09:00 (Miacalcin Inj) 300 units Q12HR SQ 06/29/16 23:00 07/01/16 09:01 06/29/16 23:36 Hydralazine HCl 10 mg 10 mg Q3HR PRN IV PUSH 06/29/16 16:00 (Precedex Inj) 50 ml @ 0 mls/hr TITRATE IV 06/29/16 16:00 06/30/16 03:01 Lorazepam 1 mg 1 mg Q4H PRN IV PUSH 06/29/16 16:00 06/29/16 17:23 Nicardipine HCl 25 mg/Sodium Chloride 260 ml @ 0 mls/hr TITRATE IV 06/29/16 18:00 06/30/16 01:56 (Maxipime Inj/NS Inj) 100 ml @ 200 mls/hr Q12H IV 06/29/16 18:00 06/30/16 06:29 Miscellaneous Information Patient in critical care unit? Ass... Q361D XX 06/29/16 17:45 06/29/16 17:45 (Chlorhexidine 2% Cloth) 3 pack DAILY@04 TOP 06/30/16 04:00 07/04/16 04:01 06/30/16 04:00 (Chlorhexidine 2% Cloth) 3 pack UNSCH PRN TOP 06/29/16 17:45 07/04/16 17:41 (Trandate Inj) 20 mg Q4H PRN IV PUSH 06/29/16 18:00 06/30/16 01:02 (Lasix Inj) 40 mg BID IV 06/29/16 23:00 06/29/16 23:36 (Haldol Inj) 2 mg Q4H PRN IV 06/30/16 06:45 (Isis Herman) Physical Exam General Appearance: Anxious, Malnourished (Isis Herman) Neck Neck Exam: Neck Supple (Isis Herman) Pulmonary Resp Exam: Clear Bilaterally, Breath Sounds Equal (Isis Herman) Cardiology CV Exam: Irregular (Isis Herman) Gastrointestinal/Abdomen GI Exam: Soft, Non-Tender (Isis Herman) Integumentary Skin Exam: Dry (Isis Herman) Extremeties Extremities Exam: No Edema (Isis Herman) Neurologic Neuro Exam: Awake (Isis Herman) Assessment/Plan Problem List: (1) ESRD (end stage renal disease) on dialysis Plan: s/p HD yesterday. Does appear more alert, but still very ill. Awaiting BCx results. Urine did not require culture. Medications should be adjusted for ESRD. Avoid gadolinium. (2) Uremic encephalopathy Plan: Work up underway. Clinically looks better today If not bacteremic, will plan for removal of peritoneal dialysis catheter. Neither Perm Cath nor Tenckhoff catheter sites appear infected. (3) HTN (hypertension) Plan: On Cardene drip (4) Hypercalcemia Plan: s/p Calcitonin. Pending lab results. (Isis Herman) Plan The exam, history, and the medical decision-making described in the above note were completed with the assistance of the LISA. I reviewed and agree with the findings presented. (Danita Maria MD) Isis Herman Jun 30, 2016 08:54 Danita Maria MD Jul 01, 2016 19:00
[2016-06-30] MEDS: FLUTICASONE PROPIONATE 50 MCG/ACT 16 GM NASAL SPRAY EACH NARE SCH (09:00)
[2016-06-30] MEDS: CALCITONIN SALMON INJ 400 UNITS/2 ML VIAL SQ SCH ×2 (09:00→19:39)
[2016-06-30] MEDS: LORazepam 2 MG/ML VIAL IV PUSH PRN ×2 (10:58→21:01)
[2016-06-30] MEDS ORDERED: DEXTROSE 50% IN WATER 50 ML VIAL(D50) IV PUSH PRN (11:15)
[2016-06-30] MEDS ORDERED: GLUCAGON 1 MG/ML VIAL OTHER PRN (11:15)
[2016-06-30] MEDS: INSULIN ASPART SUPPLEMENTAL SCALE SQ SCH ×4 (12:00→23:40)
[2016-06-30] MEDS: WARFARIN SOD 5 MG TAB PO SCH (15:25)
[2016-06-30] MEDS ORDERED: HALOPERIDOL LACTATE 5 MG/ML AMP IV PUSH ONE (17:00)
[2016-06-30] MEDS: HALOPERIDOL LACTATE 5 MG/ML AMP IV PRN ×2 (19:23→23:33)
[2016-06-30] MEDS: ATORVASTATIN 10 MG TAB PO SCH (19:24)
[2016-07-01] VITALS (11 sets, daily range): BP systolic 113–201; BP diastolic 56–104; PULSE 60–101; RESP 14–28; TEMP 99–100; O2SAT 93–100
[2016-07-01] MEDS: CHLORHEXIDINE GLUCONATE 2 % 1 PACK (2 CLOTHS)(taper/protocol) TOP SCH (01:25)
[2016-07-01] MEDS: LORazepam 2 MG/ML VIAL IV PUSH PRN ×2 (01:25→23:01)
[2016-07-01] MEDS: HALOPERIDOL LACTATE 5 MG/ML AMP IV PRN (03:34)
[2016-07-01] MEDS: INSULIN ASPART SUPPLEMENTAL SCALE SQ SCH ×5 (03:37→20:00)
[2016-07-01] MEDS: CEFEPIME INJ 1,000 MG in SODIUM CHLORIDE 0.9% INJ 100 ML IV SCH ×2 (05:23→05:24)
[2016-07-01 06:33] LABS: HEMATOCRIT 26.6 % (39.0-51.0); MEAN CELL VOLUME 97.6 FL (80.0-100.0); MEAN CORPUSCULAR HEMOGLOBIN 32.8 PG (27.0-34.0); MEAN CORPUSCULAR HGB CONC 33.6 % (32.0-36.0); PLATELET COUNT 375 TH/MM3 (150-450); RED BLOOD COUNT 2.72 MIL/MM3 (4.50-5.90); RED CELL DISTRIBUTION WIDTH 15.6 % (11.6-17.2); REVIEW FLAG FINAL; WHITE BLOOD COUNT 16.3 TH/MM3 (4.0-11.0)
[2016-07-01 06:47] LABS: INTERNATIONAL NORMALIZED RATIO 1.5 RATIO; PROTHROMBIN TIME - PATIENT 17.2 SEC (9.8-11.6)
--- NOTE | 2016-07-01 07:01 | HHI.CCPN ---
Subjective Remarks/Hospital Course The patient is a 75 yo male with past medical history significant for end-stage renal disease, previously on peritoneal dialysis started on hemodialysis since April 2016, Hypertension, DM-2, CAD, previous left renal cell carcinoma status post cryoablation in 2014 who sustained a fall from his wheelchair yesterday. This was not witnessed and patient was on the floor when patient's came back from work. When he woke up for his HD today he was mentally altered. EMS brought him in to [facility] for evaluation. CT of head that was negative for acute findings. BP elevated, 218/97 on presentation. Patient received IV hydralazine and IV labetalol in the ED. For suspected sepsis patient also received IV vancomycin and IV Rocephin in the ED. Patient was agitated in the ED and was given 1 mg of Ativan. Nephrology was consulted for dialysis. Patient was taken to hemodialysis where a total of 1.5 L net fluid was removed. During and post dialysis patient remained agitated encephalopathic. His white count was 13.5 with 81% neutrophils. Critical care medicine was consulted for severe sepsis and acute metabolic encephalopathy. His encephalopathy could be secondary to sepsis or PRES. I evaluated the patient in the ICU. He appears in moderate distress he's agitated moving all extremities encephalopathic and cannot answer questions. Vancomycin will be continued on ceftriaxone will be changed to cefepime. Patient is not spiking fever and I do not think he needs a lumbar puncture at this time 06/30: Overnight became lethargic and hypercapnic. PH was 7.25 with a PCO2 of 58. Patient placed on BiPAP with improvement in symptoms. When I evaluated today a.m. patient was more oriented following commands but remained on BiPAP 07/01: Overnight intermittently agitated and lethargic. Received multiple doses of when necessary Ativan and Haldol. Required BiPAP overnight for increased somnolence and lethargy probable CO2 retention. Required Cardene for a short period of time due to uncontrolled hypertension. I have requested MRI of the brain to rule out PRES. I will start him on scheduled low-dose Seroquel. reports that patient has history of severe anxiety Objective Vital Signs Date Time Temp Pulse Resp B/P Pulse Ox O2 Delivery O2 Flow Rate FiO2 07/01/16 04:00 99.0 60 14 113/56 96 07/01/16 04:00 Bi-Pap 35 06/30/16 21:05 4.00 Intake and Output 06/30/16 06/30/16 07/01/16 08:00 16:00 00:00 Intake Total 220 ml 448 ml 172 ml Output Total 151 ml 601 ml 200 ml Balance 69 ml -153 ml -28 ml Result Diagram: 07/01/16 0620 06/30/[address] head no acute findings X-ray of the right wrist no acute fracture Objective Remarks GENERAL: Patient is moving about, on BiPAP. Intermittently agitated SKIN: Warm and dry. HEAD: Atraumatic. Normocephalic. EYES: Pupils equal and round, reactive ENT: No nasal bleeding or discharge. Mucous membranes dry. On BiPAP NECK: Trachea midline. No JVD. CARDIOVASCULAR: Regular rate and rhythm. RESPIRATORY: Air entry is equal bilaterally with bilateral coarse breath sounds. GASTROINTESTINAL: Abdomen soft, non-tender, mildly distended. Hepatic and splenic margins not palpable. PD catheter in place MUSCULOSKELETAL: Extremities without clubbing, cyanosis, or edema. No obvious deformities. NEUROLOGICAL: Hyperactive, fidgety agitated. Intermittently appears to follow commands. Moving all extremities A/P Assessment and Plan NEURO: Acute metabolic encephalopathy secondary to sepsis versus PRES Hyperactive Delirium -Acute confusion and agitation secondary to metabolic encephalopathy -Most likely secondary to sepsis, cannot rule out PRES. Check MRI brain today -Use Ativan and Haldol when necessary for agitation if not controlled. -Start scheduled Seroquel 25 BID -Neurology consult if not improved -Check B12, TSH RESP: Hypercapnic respiratory failure -BiPAP as needed -DuoNeb every 6 hours when necessary -Aggressive pulmonary toilet -Explained to need for intubation for airway protection if the mental status deteriorates CV: Hypertensive emergency Atrial fibrillation Coronary artery disease History of hypertension Dyslipidemia -Received IV labetalol and hydralazine for uncontrolled hypertension -Use Cardene infusion if needed to keep systolic blood pressure less than 170- Was briefly on Cardene overnight -Resumed home antihypertensives 06/30 -Resumed Coumadin 06/30, INR remains subtherapeutic at 1.5 pharmacy dosing GI: -Diet if mental status improves, IV Protonix for GI prophylaxis -Abd US to evaluate for ascites : End-stage renal disease on hemodialysis Peritoneal dialysis catheter in place -Monitor renal function closely. He catheter. Status post hemodialysis 06/[address] Maria removed 1.5 L, on schedule today -CMP pending ID: Severe sepsis -IV vancomycin, cefepime. Blood cultures negative to date -CXR no acute infiltrate HEME: Chronic Coumadin use -Monitor CBC, CMP, INR -Chronic Coumadin. INR slightly subtherapeutic at 1.9 ENDO: DM-2 -Electrolyte replacement as needed -Sliding scale insulin PROPH: -Bilateral lower extremity SCDs. Continue Coumadin and consult pharmacy LINES: -Utilize peripheral IVs, central line if needed CCT 35 min Den Aguilera MD Jul 01, 2016 07:01
[2016-07-01 08:18] LABS: BLOOD GAS CARBOXYHEMOGLOBIN 1.5 % (0-4); BLOOD GAS HCO3 22 mmol/L (22-26); BLOOD GAS O2 HGB SATURATION 92 % (90-100); BLOOD GAS OXYGEN CONTENT 12.8 Vol % (12.0-20.0); BLOOD GAS PCO2 42 mmHg (38-42); BLOOD GAS PO2 90 mmHg (61-120); BLOOD GAS TOTAL HGB 9.7 G/DL (12.0-16.0); CRITICAL VALUE NO; DRAW SITE RT RADIAL; LITER FLOW 5 L/M; NUMBER OF ARTERIAL PUNCTURES 1; OXYGEN DEVICE NASAL CANNULA; STAT NO; TEMP CORR TO 98.6; ULNAR PULSE PRESENT
[2016-07-01 08:51] LABS: BICARBONATE 24.7 MEQ/L (21.0-32.0); POTASSIUM 5.2 MEQ/L (3.5-5.1)
[2016-07-01] MEDS: FLUTICASONE PROPIONATE 50 MCG/ACT 16 GM NASAL SPRAY EACH NARE SCH (09:00)
--- NOTE | 2016-07-01 09:43 | RADRPT ---
EXAM DATE/TIME: 07/01/2016 08:40 [facility] COMPARISON: No previous studies available for comparison. INDICATIONS : Abdominal distention. MEDICAL HISTORY : Hypertension. Hypercholesterolemia. Dialysis. Afib. SURGICAL HISTORY : Splenectomy. Appendectomy. ENCOUNTER: Initial ACUITY: 1 day PAIN SCORE: 110 LOCATION: Abdomen. MEASUREMENTS: LIVER: 18.3 cm length COMMON DUCT: 5 mm RIGHT KIDNEY: 9.4 x 5.3 x 5.2 cm LEFT KIDNEY: 8.0 x 5.0 x 4.5 cm SPLEEN: Surgically removed. AORTA: 2.0cm maximal FINDINGS: LIVER: Normal echotexture without focal lesion or ductal dilatation. COMMON DUCT: No intraluminal mass or stone visualized. GALLBLADDER: Contains no stones, demonstrates no wall thickening or pericholecystic fluid. PANCREAS: The visualized portions are within normal limits. RIGHT KIDNEY: Increased echogenicity of the cortex with 2 discrete cortical cyst in the midpole measuring approxima tely 1.5-1.8 cm in diameter. LEFT KIDNEY: Increased cortical echogenicity without mass lesion, hydronephrosis or nephrolithiasis SPLEEN: Nonvisualization of the spleen characteristic of the reported history of splenectomy AORTA: Non aneurysmal. IVC: Within normal limits. CONCLUSION: 1. Increased cortical echogenicity of the kidneys bilaterally. Kidneys are also somewhat diminutive i n size. Findings are concerning for chronic medical renal disease. 2. Benign appearing 1.5-1.8 cm cortical cyst in the midpole of the right kidney. 3. 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 Addy Almazan MD on July 01, 2016 at 9:38 Board Certified Radiologist. This report was verified electronically.
[2016-07-01] MEDS: TAMSULOSIN HCL 0.4 MG CAP PO SCH (12:01)
[2016-07-01] MEDS: FINASTERIDE 5 MG TAB PO SCH (12:01)
[2016-07-01] MEDS: LORATADINE 10 MG TAB PO SCH (12:01)
[2016-07-01] MEDS: QUEtiapine FUMARATE 25 MG TAB PO SCH ×2 (12:02→21:00)
[2016-07-01] MEDS: CALCITONIN SALMON INJ 400 UNITS/2 ML VIAL SQ SCH (12:02)
[2016-07-01] MEDS: amLODIPine BESYLATE 5 MG TAB PO SCH (12:02)
[2016-07-01] MEDS: hydrALAZINE HCL 25 MG TAB PO SCH ×2 (12:02→17:00)
[2016-07-01] MEDS: FUROSEMIDE 40 MG/4 ML VIAL IV SCH ×2 (12:03→22:07)
[2016-07-01] MEDS: HEPARIN SODIUM - IV 10,000 UNITS/10 ML VIAL PRN (12:26)
[2016-07-01] MEDS: GENTAMICIN SULFATE (DIALYSIS USE ONLY) 20 MG/2 ML VIAL IV PRN (12:26)
[2016-07-01] MEDS: SODIUM CHLOR 0.9% 1000 ML INJ 1,000 ML IV PRN (12:26)
[2016-07-01] MEDS: VANCOMYCIN INJ 1,000 MG in SODIUM CHLOR 0.9% 250 ML INJ 250 ML IV SCH (12:27)
--- NOTE | 2016-07-01 15:53 | RADRPT ---
EXAM DATE/TIME: 07/01/2016 11:24 [facility] COMPARISON: No previous studies available for comparison. INDICATIONS : Altered mental status. Confusion. MEDICAL HISTORY : Renal disease, end stage. Renal cell carcinoma. SURGICAL HISTORY : Appendectomy. Hernia repair and plate in left arm. ENCOUNTER: Initial ACUITY: 1 day PAIN SCORE: 0/10 LOCATION: Head. TECHNIQUE: Multiplanar, multisequence MRI of the brain was performed without contrast. FINDINGS: CEREBRUM: The ventricles are normal for age. No evidence of midline shift, mass lesion, hemorrhage or acute in farction. No extraaxial fluid collections are seen. The pituitary gland and suprasellar cistern are normal in configuration. WHITE MATTER: No significant signal abnormalities are seen in the white matter. POSTERIOR FOSSA: The cerebellum and brainstem are intact. The 4th ventricle is midline. The cerebellopontine angle is unremarkable. The cerebellar tonsils are normal in position. DIFFUSION IMAGING: No focal areas of restricted diffusion are seen. No evidence of acute infarction. EXTRACRANIAL: The visualized portions of the orbits are unremarkable. Mucus retention cysts are noted within the le ft maxillary sinus. CONCLUSION: 1. No acute intracranial abnormality. 2. Mucus retention cysts within the left maxillary sinus. Winston Grande MD on July 01, 2016 at 15:49 Board Certified Radiologist. This report was verified electronically.
[2016-07-01] MEDS: WARFARIN SOD 7.5 MG TAB PO SCH (16:00)
[2016-07-01] MEDS ORDERED: MORPHINE SULFATE 8 MG/ML INJ ONE (17:25)
[2016-07-01] MEDS ORDERED: niCARdipine INJ 25 MG in SODIUM CHLOR 0.9% 250 ML INJ 250 ML IV SCH (17:30)
--- NOTE | 2016-07-01 19:04 | HHI.NPPN ---
Subjective History of Present Illness The patient is a 75 yo [place] male who is known to our services for ESRD. According to reports from his , he was in his normal state of health all yesterday besides a fall from his wheelchair. This was not witnessed as she was at work, but he fell on R wrist. Was on the floor when she came home from work and it is not clear at the present how long he was on the ground. States this AM she woke him up for transportation to his HD treatment, and he was mentally altered. EMS was called for transport [place] [facility] [place]. Has has CT of head that was negative for stroke. BP quite elevated. Has been previously instructed to hold BP medications on HD days, but to take as scheduled on non-HD days, but given his fall yesterday, it is not certain if he took any of his BP medications. Seen in ED room and the patient himself if oriented to person and place, but not time. He is very agitated saying he wants to get up out of the bed. Does keep pointing to his right wrist saying it hurts. Interval History Patient still remains confused and lethargic. Review of Systems General General Remarks Unable to obtain secondary to patient's clinical status. Musculoskeletal MS Remarks R wrist pain Objective Data Data 06/30/16 07/01/16 19:00 07:00 Intake Total 448 ml 407 ml Output Total 601 ml 250 ml Balance -153 ml 157 ml Intake Oral 100 ml IV Total 348 ml 407 ml Output Urine Total 300 ml 250 ml Stool Total 1 ml Emesis 300 ml # Bowel Movements 2 Vital Signs Date Time Temp Pulse Resp B/P Pulse Ox O2 Delivery O2 Flow Rate FiO2 07/01/16 17:30 21 07/01/16 16:00 92 Nasal Cannula 4.00 07/01/16 16:00 99.4 101 21 198/89 93 07/01/16 12:00 99.5 84 18 186/87 93 07/01/16 12:00 95 Nasal Cannula 4.00 07/01/16 10:00 94 Nasal Cannula 5.00 07/01/16 08:00 98 Nasal Cannula 4.00 07/01/16 08:00 100.0 84 18 201/104 98 07/01/16 08:00 85 07/01/16 04:00 99.0 60 14 113/56 96 07/01/16 04:00 98 Bi-Pap 35 07/01/16 03:37 98 35 07/01/16 01:09 98 35 07/01/16 00:00 99.0 78 24 140/63 94 07/01/16 00:00 100 Bi-Pap 35 06/30/16 21:10 98 35 06/30/16 21:05 87 Nasal Cannula 4.00 06/30/16 20:00 61 06/30/16 20:00 98.7 70 33 187/142 91 06/30/16 20:00 96 Nasal Cannula 4.00 -: 07/01/16 0620 07/01/16 0620 Tubes & Lines: Perma-Cath, Tenckhoff Catheter Physical Exam General Appearance: Anxious, Malnourished Neck Neck Exam: Neck Supple Pulmonary Resp Exam: Clear Bilaterally, Breath Sounds Equal Cardiology CV Exam: Irregular Gastrointestinal/Abdomen GI Exam: Soft, Non-Tender Integumentary Skin Exam: Dry Extremeties Extremities Exam: No Edema Neurologic Neuro Exam: Awake, Stuporous Assessment/Plan Problem List: (1) ESRD (end stage renal disease) on dialysis Plan: Patient's blood cultures negative after 48 hours. Patient has not been on peritoneal dialysis for a while however does have a PD catheter in place. We'll send specimen for culture in view of worsening leukocytosis however. Continue hemodialysis Tuesday, and Tuesday. Medications should be adjusted for ESRD. Avoid gadolinium. (2) Uremic encephalopathy Plan: Patient's mental status has not improved despite improvement in calcium level. Etiology of altered mental status uncertain. I will check an aluminum level for completeness however suspicion for aluminum toxicity would be low as aluminum binders no longer utilized for phosphate management. Await neurology: Opinion. (3) HTN (hypertension) Plan: On Cardene drip (4) Hypercalcemia Plan: s/p Calcitonin. Pending lab results. Plan Danita Maria MD Jul 01, 2016 19:04
[2016-07-01] MEDS: ATORVASTATIN 10 MG TAB PO SCH (21:00)
[2016-07-01] MEDS ORDERED: ETOMIDATE 20 MG/10 ML VIAL ONE (23:18)
[2016-07-01 23:35] LABS: BLOOD GAS BASE EXCESS -0.2 mmol/L (-2-2); BLOOD GAS CARBOXYHEMOGLOBIN 1.7 % (0-4); BLOOD GAS HCO3 24 mmol/L (22-26); BLOOD GAS METHEMOGLOBIN 1.6 % (0-2); BLOOD GAS O2 HGB SATURATION 90 % (90-100); BLOOD GAS OXYGEN CONTENT 12.4 Vol % (12.0-20.0); BLOOD GAS PCO2 38 mmHg (38-42); BLOOD GAS PO2 72 mmHg (61-120); BLOOD GAS TOTAL HGB 9.8 G/DL (12.0-16.0); CRITICAL VALUE NO; DRAW SITE RT RADIAL; LITER FLOW 5 L/M; NUMBER OF ARTERIAL PUNCTURES 1; OXYGEN DEVICE NASAL CANNULA; STAT NO; TEMP CORR TO 98.6
[2016-07-01 23:45] LABS: PERITONEAL LYMPHS 2 %; PERITONEAL MONOS 17 %; PERITONEAL POLYS(SEGS) 81 %; PERITONEAL WBC 193 /MM3 (0-10)
[2016-07-02] VITALS (11 sets, daily range): BP systolic 147–183; BP diastolic 67–124; PULSE 69–101; RESP 18–34; TEMP 97.1–99.4; O2SAT 97–100
[2016-07-02] MEDS: hydrALAZINE HCL 25 MG TAB PO SCH ×4 (00:40→20:12)
[2016-07-02] MEDS: CHLORHEXIDINE GLUCONATE 2 % 1 PACK (2 CLOTHS)(taper/protocol) TOP SCH ×2 (00:40→20:12)
[2016-07-02 03:51] LABS: KAPPA/LAMBDA FREE 1.26 (0.26-1.65)
[2016-07-02] MEDS: INSULIN ASPART SUPPLEMENTAL SCALE SQ SCH ×7 (04:00→23:34)
[2016-07-02] MEDS: niCARdipine INJ 25 MG in SODIUM CHLOR 0.9% 250 ML INJ 250 ML IV SCH ×3 (04:40→23:35)
[2016-07-02] MEDS: LORazepam 2 MG/ML VIAL IV PUSH PRN (04:41)
[2016-07-02] MEDS: CEFEPIME INJ 1,000 MG in SODIUM CHLORIDE 0.9% INJ 100 ML IV SCH (05:52)
[2016-07-02 06:12] LABS: INTERNATIONAL NORMALIZED RATIO 1.7 RATIO
--- NOTE | 2016-07-02 08:59 | PD.CONS ---
History of Present Illness Service Neurology Consult Requested By [facility] Reason for Consult confusion Primary Care Physician Nikolai Carrasquillo M.D. History of Present Illness 75 yo male with past medical history significant for end-stage renal disease, previously on peritoneal dialysis started on hemodialysis since April 2016, Hypertension, DM-2, CAD, previous left renal cell carcinoma status post cryoablation in 2014 who sustained a fall from his wheelchair yesterday. When he woke up for his HD today he was mentally altered. CT of head that was negative for acute findings. BP elevated, 218/97 on presentation. His white count was 13.5 with 81% neutrophils. he has been agitated since being in the ICU, moving all extremities. not verbal. unable to retrieve any information from the patient. was recently admitted to [facility] [place] and tx'd for abdominal pain. states that he is very sharp at baseline. uses a powerscooter/wheelchair to get around. Review of Systems ROS Limitations: Altered Mental Status Past Family Social History Allergies: Coded Allergies: No Known Allergies (Verified , 06/15/16) Past Medical History End-stage renal disease failed PD and now on HD since 04/2016 Hypertension Anemia of CKD Diabetes mellitus Coronary artery disease Dyslipidemia Mild peripheral vascular disease Hyperphosphatemia BPH Previous left renal cell carcinoma status post cryoablation in 2014 Past Surgical History Appendectomy Splenectomy Placement of a peritoneal dialysis catheter. Active Ordered Medications Reviewed Family History Reviewed Social History No alcohol or tobacco use Review of Systems All other ROS: Unable to obtain Past Family Social History Allergies: Coded Allergies: No Known Allergies (Verified , 06/15/16) Active Ordered Medications Current Medications Medications (Trade) Dose Ordered Sig/Terra Route Start Time Stop Time Status Last Admin (NS 1000 ml Inj) 1,000 ml @ 0 mls/hr Q0M PRN IV 06/29/16 10:03 07/01/16 12:26 Heparin Sodium (Porcine) 8000 units 8,000 units UNSCH PRN IVF 06/29/16 10:15 Sodium Chloride 1,000 ml @ 200 mls/hr Q5H PRN IV 06/29/16 10:03 (NS 1000 ml Inj) 1,000 ml @ 0 mls/hr Q0M PRN IV 06/29/16 10:03 (Mannitol Inj) 12.5 gm UNSCH PRN IV 06/29/16 10:15 (Albumin 25% Inj) 25 gm UNSCH PRN IV 06/29/16 10:15 (NS Flush) 5 ml UNSCH PRN IV FLUSH 06/29/16 10:15 (Heparin Inj) UNSCH PRN .XX 06/29/16 10:15 07/01/16 12:26 (Gentamicin (Dialysis) Inj) 20 mg UNSCH PRN IV 06/29/16 10:15 07/01/16 12:26 (Zofran Inj) 4 mg UNSCH PRN IV 06/29/16 10:15 06/30/16 09:15 (Tylenol) 650 mg UNSCH PRN PO 06/29/16 10:15 (Benadryl) 25 mg UNSCH PRN PO 06/29/16 10:15 (Nitrostat Sl) 0.4 mg UNSCH PRN SL 06/29/16 10:15 (Catapres) 0.1 mg UNSCH PRN PO 06/29/16 10:15 (Gelfoam 12 Mm/7 Mm Top) 1 foam UNSCH PRN TOP 06/29/16 10:15 (Lipitor) 10 mg HS PO 06/29/16 21:00 06/30/16 19:24 (Proscar) 5 mg DAILY PO 06/30/16 09:00 07/01/16 12:01 (Flonase Mario Spr) 1 spray DAILY EACH NARE 06/30/16 09:00 (Claritin) 10 mg DAILY PO 06/30/16 09:00 07/01/16 12:01 (Percocet 5-325 Mg) 1 tab Q6H PRN PO 06/29/16 10:15 (Flomax) 0.4 mg DAILY PO 06/30/16 09:00 07/01/16 12:01 (Coumadin) 5 mg SuMoWeFr@16 PO 06/30/16 16:00 06/30/16 15:25 (Coumadin) 7.5 mg TuThSa@16 PO 06/29/16 16:00 07/01/16 16:00 (Norvasc) 5 mg DAILY PO 06/30/16 09:00 07/01/16 12:02 (Apresoline Inj) 10 mg Q3HR PRN IV PUSH 06/29/16 16:00 Miscellaneous Information Patient in critical care unit? Ass... Q361D XX 06/29/16 17:45 06/29/16 17:45 (Chlorhexidine 2% Cloth) 3 pack DAILY@04 TOP 06/30/16 04:00 07/04/16 04:01 07/02/16 00:40 (Chlorhexidine 2% Cloth) 3 pack UNSCH PRN TOP 06/29/16 17:45 07/04/16 17:41 (Trandate Inj) 20 mg Q4H PRN IV PUSH 06/29/16 18:00 06/30/16 19:24 Furosemide 40 mg 40 mg BID IV 06/29/16 23:00 07/01/16 22:07 (Coumadin Consult Pharmacy) 0 ml @ 0 mls/hr UNSCH OTHER 06/30/16 10:00 (NovoLOG SUPPLEMENTAL SCALE) 1 Q4H SQ 06/30/16 12:00 07/01/16 03:37 (D50w (Vial) Inj) 25 ml UNSCH PRN IV PUSH 06/30/16 11:15 Glucagon 1 mg 1 mg UNSCH PRN OTHER 06/30/16 11:15 (Maxipime Inj/NS Inj) 100 ml @ 200 mls/hr Q24H IV 06/30/16 06:00 07/02/16 05:52 (Haldol Inj) 1 mg Q4H PRN IV 06/30/16 18:45 06/30/16 23:33 (Ativan Inj) 0.5 mg Q4H PRN IV PUSH 06/30/16 16:00 07/02/16 04:41 (SEROquel) 25 mg BID PO 07/01/16 09:00 07/01/16 12:02 (Apresoline) 50 mg Q8H PO 07/01/16 17:00 Morphine Sulfate 2 mg 2 mg Q3H PRN IV PUSH 07/01/16 17:30 (Cardene Inj/NS 250 ml Inj) 260 ml @ 0 mls/hr TITRATE IV 07/01/16 17:30 07/02/16 04:40 Exam I&O / VS 07/01/16 07/01/16 07/02/16 15:00 23:00 07:00 Intake Total 185 ml 132 ml 152 ml Output Total 350 ml 1950 ml 200 ml Balance -165 ml -1818 ml -48 ml Intake Oral 100 ml 0 ml IV Total 85 ml 132 ml 152 ml Output Urine Total 350 ml 450 ml 200 ml Hemodialysis 1500 ml # Bowel Movements 0 0 0 Vital Signs Date Time Temp Pulse Resp B/P Pulse Ox O2 Delivery O2 Flow Rate FiO2 07/02/16 08:12 100 Nasal Cannula 5.00 07/02/16 06:00 75 07/02/16 04:00 99.4 101 34 183/81 97 07/02/16 04:00 97 Nasal Cannula 5.00 07/02/16 04:00 101 07/02/16 02:00 84 07/02/16 00:00 99.4 95 29 167/72 100 07/02/16 00:00 95 07/02/16 00:00 100 Nasal Cannula 5.00 07/01/16 22:00 95 07/01/16 20:18 100 Nasal Cannula 5.00 07/01/16 20:00 100 Nasal Cannula 5.00 07/01/16 20:00 85 07/01/16 20:00 99.4 93 28 186/91 100 07/01/16 17:30 21 07/01/16 16:00 92 Nasal Cannula 4.00 07/01/16 16:00 99.4 101 21 198/89 93 07/01/16 12:00 99.5 84 18 186/87 93 07/01/16 12:00 95 Nasal Cannula 4.00 07/01/16 10:00 94 Nasal Cannula 5.00 Exam Comments stupor, not following, not-verbal, not following, grimaces to tactile, ou 2mm sluggish, face sym, nicholas to tactile, atrophic legs, msr depressed, no clonus, planterflexor Review/Management Diagnosis/Plan: (1) Encephalopathy, metabolic Plan: etiology: infection vs severe htn recs check eeg f/u blood cx's iv thiamine iv acyclovir for now follow exam d/w spouse, rn may need lp if cx's negative and no improvement (2) Hypertensive encephalopathy (3) Chronic renal failure (4) HTN (hypertension) Problem Qualifiers (1) Chronic renal failure: Qualified Code: N18.5 - Chronic renal failure, stage 5 (2) HTN (hypertension): Qualified Code: I10 - Essential hypertension Ashu Shaikh MD Jul 02, 2016 08:59
[2016-07-02] MEDS: FLUTICASONE PROPIONATE 50 MCG/ACT 16 GM NASAL SPRAY EACH NARE SCH (09:00)
[2016-07-02] MEDS: FINASTERIDE 5 MG TAB PO SCH (09:00)
[2016-07-02] MEDS: amLODIPine BESYLATE 5 MG TAB PO SCH (09:00)
[2016-07-02] MEDS: TAMSULOSIN HCL 0.4 MG CAP PO SCH (09:00)
[2016-07-02] MEDS: LORATADINE 10 MG TAB PO SCH (09:00)
[2016-07-02] MEDS: QUEtiapine FUMARATE 25 MG TAB PO SCH ×2 (09:00→20:12)
[2016-07-02] MEDS: SODIUM CHLOR 0.9% 1000 ML INJ 1,000 ML IV SCH ×2 (09:30→20:53)
--- NOTE | 2016-07-02 10:37 | HHI.NPPN ---
Subjective History of Present Illness The patient is a 75 yo [place] male who is known to our services for ESRD. According to reports from his , he was in his normal state of health all yesterday besides a fall from his wheelchair. This was not witnessed as she was at work, but he fell on R wrist. Was on the floor when she came home from work and it is not clear at the present how long he was on the ground. States this AM she woke him up for transportation to his HD treatment, and he was mentally altered. EMS was called for transport [place] [facility] [place]. Has has CT of head that was negative for stroke. BP quite elevated. Has been previously instructed to hold BP medications on HD days, but to take as scheduled on non-HD days, but given his fall yesterday, it is not certain if he took any of his BP medications. Seen in ED room and the patient himself if oriented to person and place, but not time. He is very agitated saying he wants to get up out of the bed. Does keep pointing to his right wrist saying it hurts. Interval History Pt obtunded, agitated movements, non-verbal. (Isis Herman) Review of Systems General General Remarks Unable to obtain secondary to patient's clinical status. (Isis Herman) Musculoskeletal MS Remarks R wrist pain (Isis Herman) Objective Data Data 07/01/16 07/02/16 19:00 07:00 Intake Total 185 ml 284 ml Output Total 1850 ml 650 ml Balance -1665 ml -366 ml Intake Oral 100 ml 0 ml IV Total 85 ml 284 ml Output Urine Total 350 ml 650 ml Hemodialysis 1500 ml # Bowel Movements 0 0 Vital Signs Date Time Temp Pulse Resp B/P Pulse Ox O2 Delivery O2 Flow Rate FiO2 07/02/16 08:12 100 Nasal Cannula 5.00 07/02/16 08:00 69 07/02/16 08:00 97.4 69 21 147/67 100 07/02/16 06:00 75 07/02/16 04:00 99.4 101 34 183/81 97 07/02/16 04:00 97 Nasal Cannula 5.00 07/02/16 04:00 101 07/02/16 02:00 84 07/02/16 00:00 99.4 95 29 167/72 100 07/02/16 00:00 95 07/02/16 00:00 100 Nasal Cannula 5.00 07/01/16 22:00 95 07/01/16 20:18 100 Nasal Cannula 5.00 07/01/16 20:00 100 Nasal Cannula 5.00 07/01/16 20:00 85 07/01/16 20:00 99.4 93 28 186/91 100 07/01/16 17:30 21 07/01/16 16:00 92 Nasal Cannula 4.00 07/01/16 16:00 99.4 101 21 198/89 93 07/01/16 12:00 99.5 84 18 186/87 93 07/01/16 12:00 95 Nasal Cannula 4.00 (Isis Herman) -: 07/01/16 0620 07/01/16 0620 Microbiology 07/01/16 Gram Stain - Final, Resulted 07/01/16 Body Fluid Culture, Resulted Pending Tubes & Lines: Perma-Cath, Tenckhoff Catheter Medication Review Current Medications Medications (Trade) Dose Ordered Sig/Terra Route Start Time Stop Time Status Last Admin (NS 1000 ml Inj) 1,000 ml @ 0 mls/hr Q0M PRN IV 06/29/16 10:03 07/01/16 12:26 Heparin Sodium (Porcine) 8000 units 8,000 units UNSCH PRN IVF 06/29/16 10:15 Sodium Chloride 1,000 ml @ 200 mls/hr Q5H PRN IV 06/29/16 10:03 (NS 1000 ml Inj) 1,000 ml @ 0 mls/hr Q0M PRN IV 06/29/16 10:03 (Mannitol Inj) 12.5 gm UNSCH PRN IV 06/29/16 10:15 (Albumin 25% Inj) 25 gm UNSCH PRN IV 06/29/16 10:15 (NS Flush) 5 ml UNSCH PRN IV FLUSH 06/29/16 10:15 (Heparin Inj) UNSCH PRN .XX 06/29/16 10:15 07/01/16 12:26 (Gentamicin (Dialysis) Inj) 20 mg UNSCH PRN IV 06/29/16 10:15 07/01/16 12:26 (Zofran Inj) 4 mg UNSCH PRN IV 06/29/16 10:15 06/30/16 09:15 (Tylenol) 650 mg UNSCH PRN PO 06/29/16 10:15 (Benadryl) 25 mg UNSCH PRN PO 06/29/16 10:15 (Nitrostat Sl) 0.4 mg UNSCH PRN SL 06/29/16 10:15 (Catapres) 0.1 mg UNSCH PRN PO 06/29/16 10:15 (Gelfoam 12 Mm/7 Mm Top) 1 foam UNSCH PRN TOP 06/29/16 10:15 (Lipitor) 10 mg HS PO 06/29/16 21:00 06/30/16 19:24 (Proscar) 5 mg DAILY PO 06/30/16 09:00 07/01/16 12:01 (Flonase Mario Spr) 1 spray DAILY EACH NARE 06/30/16 09:00 (Claritin) 10 mg DAILY PO 06/30/16 09:00 07/01/16 12:01 (Percocet 5-325 Mg) 1 tab Q6H PRN PO 06/29/16 10:15 (Flomax) 0.4 mg DAILY PO 06/30/16 09:00 07/01/16 12:01 (Coumadin) 5 mg SuMoWeFr@16 PO 06/30/16 16:00 06/30/16 15:25 (Coumadin) 7.5 mg TuThSa@16 PO 06/29/16 16:00 07/01/16 16:00 (Norvasc) 5 mg DAILY PO 06/30/16 09:00 07/01/16 12:02 (Apresoline Inj) 10 mg Q3HR PRN IV PUSH 06/29/16 16:00 Miscellaneous Information Patient in critical care unit? Ass... Q361D XX 06/29/16 17:45 06/29/16 17:45 (Chlorhexidine 2% Cloth) 3 pack DAILY@04 TOP 06/30/16 04:00 07/04/16 04:01 07/02/16 00:40 (Chlorhexidine 2% Cloth) 3 pack UNSCH PRN TOP 06/29/16 17:45 07/04/16 17:41 (Trandate Inj) 20 mg Q4H PRN IV PUSH 06/29/16 18:00 06/30/16 19:24 Furosemide 40 mg 40 mg BID IV 06/29/16 23:00 07/01/16 22:07 (Coumadin Consult Pharmacy) 0 ml @ 0 mls/hr UNSCH OTHER 06/30/16 10:00 (NovoLOG SUPPLEMENTAL SCALE) 1 Q4H SQ 06/30/16 12:00 07/01/16 03:37 (D50w (Vial) Inj) 25 ml UNSCH PRN IV PUSH 06/30/16 11:15 Glucagon 1 mg 1 mg UNSCH PRN OTHER 06/30/16 11:15 (Maxipime Inj/NS Inj) 100 ml @ 200 mls/hr Q24H IV 06/30/16 06:00 07/02/16 05:52 (Haldol Inj) 1 mg Q4H PRN IV 06/30/16 18:45 06/30/16 23:33 (Ativan Inj) 0.5 mg Q4H PRN IV PUSH 06/30/16 16:00 07/02/16 04:41 (SEROquel) 25 mg BID PO 07/01/16 09:00 07/01/16 12:02 (Apresoline) 50 mg Q8H PO 07/01/16 17:00 Morphine Sulfate 2 mg 2 mg Q3H PRN IV PUSH 07/01/16 17:30 Nicardipine HCl 25 mg/Sodium Chloride 260 ml @ 0 mls/hr TITRATE IV 07/01/16 17:30 07/02/16 04:40 Sodium Chloride 1,000 ml @ 50 mls/hr Q20H IV 07/02/16 09:30 Acyclovir Sodium 30 mg/Sodium Chloride 100 ml @ 100 mls/hr Q24H IV 07/02/16 11:00 (Thiamine Inj/NS Inj) 101 ml @ 101 mls/hr DAILY IV 07/02/16 10:00 (Isis Herman) Physical Exam General Appearance: Anxious, Malnourished (Isis Herman) Neck Neck Exam: Neck Supple (Isis Herman) Pulmonary Resp Exam: Clear Bilaterally, Breath Sounds Equal (Isis Herman) Cardiology CV Exam: Irregular (Isis Herman) Gastrointestinal/Abdomen GI Exam: Soft, Non-Tender (Isis Herman) Integumentary Skin Exam: Dry (Isis Herman) Extremeties Extremities Exam: No Edema (Isis Herman) Neurologic Neuro Exam: Stuporous, Obtunded (Isis Herman) Assessment/Plan Problem List: (1) ESRD (end stage renal disease) on dialysis Plan: Patient's blood cultures negative after 48 hours. Peritoneal culture pending. Continue hemodialysis Tuesday, and Tuesday. Hold IV Lasix OK for gentle hydration as he has virtually no intake. Monitor for signs of fluid overload. Medications should be adjusted for ESRD. Avoid gadolinium. (2) Uremic encephalopathy Plan: Patient's mental status has not improved despite improvement in calcium level. Etiology of altered mental status uncertain. Aluminum level pending. Appreciate neurology input (3) HTN (hypertension) Plan: On Cardene drip (4) Hypercalcemia Plan: Resolved with Calcitonin. Serology negative. Pending PTHrP, Vit D 1,25-OH Plan (Isis Herman) Plan The exam, history, and the medical decision-making described in the above note were completed with the assistance of the LISA. I reviewed and agree with the findings presented. (Danita Maria MD) Problem Qualifiers (1) HTN (hypertension): Qualified Code: I10 - Essential hypertension Isis Herman Jul 02, 2016 10:37 Danita Maria MD Jul 04, 2016 13:04
[2016-07-02] MEDS ORDERED: SODIUM CHLORIDE 0.9% IV SCH (11:00)
[2016-07-02] MEDS ORDERED: ACYCLOVIR IV SCH (11:00)
[2016-07-02] MEDS: THIAMINE INJ 100 MG in SODIUM CHLORIDE 0.9% INJ 100 ML IV SCH (11:20)
[2016-07-02] MEDS: ACYCLOVIR IV SCH (12:07)
[2016-07-02] MEDS: SODIUM CHLORIDE 0.9% IV SCH (12:07)
[2016-07-02 13:59] LABS: AUTOMATED NEUTROPHIL # 10.6 TH/MM3 (1.8-7.7); BASOPHIL # 0.1 TH/MM3 (0-0.2); BASOPHIL % 0.5 % (0.0-2.0); EOSINOPHIL % 0.1 % (0.0-4.0); HEMATOCRIT 29.1 % (39.0-51.0); HEMO FLAGS DIFF FINAL; LYMPH % 4.8 % (9.0-44.0); LYMPHOCYTE # 0.6 TH/MM3 (1.0-4.8); MEAN CORPUSCULAR HEMOGLOBIN 32.4 PG (27.0-34.0); MEAN CORPUSCULAR HGB CONC 33.1 % (32.0-36.0); MONO % 7.8 % (0.0-8.0); NEUT % 86.8 % (16.0-70.0); PLATELET COUNT 357 TH/MM3 (150-450); RED BLOOD COUNT 2.97 MIL/MM3 (4.50-5.90); WHITE BLOOD COUNT 12.2 TH/MM3 (4.0-11.0)
[2016-07-02] MEDS: LABETALOL HCL 100 MG/20 ML VIAL IV PUSH PRN (14:44)
[2016-07-02] MEDS: WARFARIN SOD 5 MG TAB PO SCH (16:00)
--- NOTE | 2016-07-02 17:28 | MG ---
cc: ALFONSO PARRA MD Lab No: [id number] Date: 07/02/2013 Age: 75 Sex: M Race: DATE OF : 1940 HISTORY: A 75-year-old history of confusion. Generalized delta activity 1-3 Hz of superimposed theta activity 4-5 Hz occurring 10-40 microvolts in a generalized fashion. Frontal channel showing electrical artifact. No driving with photic stimulation. Single Electrocardiogram shows sinus rhythm with premature contractions, although there is artifact occurring. Reasonable EEG variability reactivity. INTERPRETATION 1. Moderate encephalopathy. 2. Clinical correlation Alfonso Parra MD MG/ /5:00 PM /5:25 PM
--- NOTE | 2016-07-02 19:46 | HHI.PR ---
Subjective Remarks agitated last night had antipsychotics and morphine currently sedated. Objective Vitals pinpoint pupils sedated mouth dry. heart reg lung course bs abd pd cath.soft. bs ext no edema cherry Vital Signs Date Time Temp Pulse Resp B/P Pulse Ox O2 Delivery O2 Flow Rate FiO2 07/02/16 16:00 97.1 79 20 181/124 98 07/02/16 16:00 98 Nasal Cannula 5.00 35 07/02/16 12:00 98.1 76 20 167/79 98 07/02/16 12:00 Nasal Cannula 5.00 35 07/02/16 08:12 100 Nasal Cannula 5.00 07/02/16 08:00 69 07/02/16 08:00 97 Nasal Cannula 5.00 07/02/16 08:00 97.4 69 21 147/67 100 07/02/16 06:00 75 07/02/16 04:00 99.4 101 34 183/81 97 07/02/16 04:00 97 Nasal Cannula 5.00 07/02/16 04:00 101 07/02/16 02:00 84 07/02/16 00:00 99.4 95 29 167/72 100 07/02/16 00:00 95 07/02/16 00:00 100 Nasal Cannula 5.00 07/01/16 22:00 95 07/01/16 20:18 100 Nasal Cannula 5.00 07/01/16 20:00 100 Nasal Cannula 5.00 07/01/16 20:00 85 07/01/16 20:00 99.4 93 28 186/91 100 07/01/16 07/01/16 07/02/16 15:00 23:00 07:00 Intake Total 185 ml 132 ml 152 ml Output Total 350 ml 1950 ml 200 ml Balance -165 ml -1818 ml -48 ml Intake Oral 100 ml 0 ml IV Total 85 ml 132 ml 152 ml Output Urine Total 350 ml 450 ml 200 ml Hemodialysis 1500 ml # Bowel Movements 0 0 0 Result Diagram: 07/02/16 1343 07/01/16 0620 A/P Problem List: (1) Mental status change Status: Acute Plan: Pt has ESRD converted from PD to HD in April for ineffective fluid removal. He presents with severe htn and metabolic encephalopathy. CT imaging in ED negative for ICH/CVA. mri neg for cva exclude underlying sepsis. 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 neuro. 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 f/u cx's cont broad abx coverage dvt prophylaxis (2) ESRD (end stage renal disease) on dialysis Status: Chronic Plan: consult nephrology. HD today (3) HTN (hypertension) Status: Chronic Plan: see above (4) BPH (benign prostatic hyperplasia) Status: Chronic Plan: home meds (5) Diabetes Status: Chronic Plan: ssi. (6) Atrial fibrillation Status: Chronic Plan: home meds as tolerated. Problem Qualifiers (1) HTN (hypertension): Qualified Code: I10 - Essential hypertension Javy Hudson MD Jul 02, 2016 19:46
[2016-07-02] MEDS: ATORVASTATIN 10 MG TAB PO SCH (20:12)
[2016-07-03] VITALS (13 sets, daily range): BP systolic 147–170; BP diastolic 67–95; PULSE 75–106; RESP 17–23; TEMP 98.1–99; O2SAT 96–100
[2016-07-03] MEDS: INSULIN ASPART SUPPLEMENTAL SCALE SQ SCH ×5 (02:50→20:00)
[2016-07-03 04:58] LABS: HEMATOCRIT 26.9 % (39.0-51.0); MEAN CELL VOLUME 98.1 FL (80.0-100.0); MEAN CORPUSCULAR HEMOGLOBIN 32.9 PG (27.0-34.0); MEAN CORPUSCULAR HGB CONC 33.5 % (32.0-36.0); PLATELET COUNT 351 TH/MM3 (150-450); RED BLOOD COUNT 2.75 MIL/MM3 (4.50-5.90); RED CELL DISTRIBUTION WIDTH 15.6 % (11.6-17.2); REVIEW FLAG FINAL; WHITE BLOOD COUNT 12.4 TH/MM3 (4.0-11.0)
[2016-07-03 05:07] LABS: INTERNATIONAL NORMALIZED RATIO 2.7 RATIO; PROTHROMBIN TIME - PATIENT 30.6 SEC (9.8-11.6)
[2016-07-03 05:33] LABS: POTASSIUM 4.2 MEQ/L (3.5-5.1)
[2016-07-03] MEDS: CEFEPIME INJ 1,000 MG in SODIUM CHLORIDE 0.9% INJ 100 ML IV SCH (05:44)
[2016-07-03] MEDS: niCARdipine INJ 25 MG in SODIUM CHLOR 0.9% 250 ML INJ 250 ML IV SCH (07:51)
[2016-07-03] MEDS: THIAMINE INJ 100 MG in SODIUM CHLORIDE 0.9% INJ 100 ML IV SCH (07:51)
[2016-07-03] MEDS: LORATADINE 10 MG TAB PO SCH (08:13)
[2016-07-03] MEDS: hydrALAZINE HCL 25 MG TAB PO SCH ×2 (08:13→16:00)
[2016-07-03] MEDS: TAMSULOSIN HCL 0.4 MG CAP PO SCH (08:13)
[2016-07-03] MEDS: QUEtiapine FUMARATE 25 MG TAB PO SCH ×2 (08:14→20:19)
[2016-07-03] MEDS: amLODIPine BESYLATE 5 MG TAB PO SCH (08:14)
[2016-07-03] MEDS: FINASTERIDE 5 MG TAB PO SCH (08:14)
[2016-07-03] MEDS: VANCOMYCIN INJ 1,000 MG in SODIUM CHLOR 0.9% 250 ML INJ 250 ML IV SCH (08:31)
[2016-07-03] MEDS: SODIUM CHLOR 0.9% 1000 ML INJ 1,000 ML IV PRN (08:31)
[2016-07-03] MEDS: GENTAMICIN SULFATE (DIALYSIS USE ONLY) 20 MG/2 ML VIAL IV PRN (08:32)
[2016-07-03] MEDS: HEPARIN SODIUM - IV 10,000 UNITS/10 ML VIAL PRN (08:32)
--- NOTE | 2016-07-03 08:45 | HHI.PR ---
Subjective Remarks oriented. wants to go home. dry mouth. denies any pain. no n/v/d now. no abdomen pain. Objective Vitals oriented dry mouth heart reg lung cta abd s/nt/pd cath ext no edema cherry Vital Signs Date Time Temp Pulse Resp B/P Pulse Ox O2 Delivery O2 Flow Rate FiO2 07/03/16 06:00 85 07/03/16 04:00 97 Nasal Cannula 5.00 07/03/16 04:00 87 07/03/16 04:00 98.8 87 21 163/70 97 07/03/16 02:00 89 07/03/16 00:00 98 Nasal Cannula 5.00 07/03/16 00:00 88 07/03/16 00:00 98.9 88 17 160/95 96 07/02/16 22:00 75 07/02/16 20:00 99.0 82 18 170/88 97 07/02/16 20:00 97 Nasal Cannula 5.00 07/02/16 20:00 99 07/02/16 19:37 100 Nasal Cannula 5.00 07/02/16 16:00 97.1 79 20 181/124 98 07/02/16 16:00 98 Nasal Cannula 5.00 35 07/02/16 12:00 98.1 76 20 167/79 98 07/02/16 12:00 Nasal Cannula 5.00 35 07/02/16 07/02/16 07/03/16 15:00 23:00 07:00 Intake Total 274 ml 244 ml 280 ml Output Total 200 ml 180 ml 200 ml Balance 74 ml 64 ml 80 ml IV Total 274 ml 244 ml 280 ml Output Urine Total 200 ml 180 ml 200 ml Result Diagram: 07/03/16 0446 07/03/16 0446 A/P Problem List: (1) Mental status change Status: Acute Plan: Pt has ESRD converted from PD to HD in April for ineffective fluid removal. He presents with severe htn and metabolic encephalopathy. CT imaging in ED negative for ICH/CVA. mri neg for cva exclude underlying sepsis. Pt more oriented today and says he was just feeling bad/had diarrhea x 1 and fell down from his walker. denies any cp/headache/sob/cough/abdomen pain/n/v Pt seen by nephrology. 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 titrate off once able to resume po meds ivf HD currently today currently off cardene f/u cx's cont broad abx coverage. only 1 cc removed from peritoneum and showing gram positive species. dvt prophylaxis (2) ESRD (end stage renal disease) on dialysis Status: Chronic Plan: consult nephrology. HD today (3) HTN (hypertension) Status: Chronic Plan: see above (4) BPH (benign prostatic hyperplasia) Status: Chronic Plan: home meds (5) Diabetes Status: Chronic Plan: ssi. (6) Atrial fibrillation Status: Chronic Plan: home meds as tolerated. Problem Qualifiers (1) HTN (hypertension): Qualified Code: I10 - Essential hypertension Javy Hudson MD Jul 03, 2016 08:45
[2016-07-03] MEDS: FLUTICASONE PROPIONATE 50 MCG/ACT 16 GM NASAL SPRAY EACH NARE SCH (09:00)
--- NOTE | 2016-07-03 12:09 | HHI.PR ---
Review/Management Diagnosis/Plan: (1) Encephalopathy, metabolic Plan: etiology: infection vs severe htn possibly related to peritoneal infection inr 2.7 recs more alert consider i.d. eval- defer to medical f/u blood cx's iv thiamine iv acyclovir for now follow exam follow exam d/w spouse, rn may need lp if cx's negative and no improvement (2) Hypertensive encephalopathy (3) Chronic renal failure (4) HTN (hypertension) Subjective Subjective Comments No acute events reported No headache Active Medications Current Medications Medications (Trade) Dose Ordered Sig/Terra Route Start Time Stop Time Status Last Admin (NS 1000 ml Inj) 1,000 ml @ 0 mls/hr Q0M PRN IV 06/29/16 10:03 07/03/16 08:31 Heparin Sodium (Porcine) 8000 units 8,000 units UNSCH PRN IVF 06/29/16 10:15 Sodium Chloride 1,000 ml @ 200 mls/hr Q5H PRN IV 06/29/16 10:03 (NS 1000 ml Inj) 1,000 ml @ 0 mls/hr Q0M PRN IV 06/29/16 10:03 (Mannitol Inj) 12.5 gm UNSCH PRN IV 06/29/16 10:15 (Albumin 25% Inj) 25 gm UNSCH PRN IV 06/29/16 10:15 (NS Flush) 5 ml UNSCH PRN IV FLUSH 06/29/16 10:15 (Heparin Inj) UNSCH PRN .XX 06/29/16 10:15 07/03/16 08:32 (Gentamicin (Dialysis) Inj) 20 mg UNSCH PRN IV 06/29/16 10:15 07/03/16 08:32 (Zofran Inj) 4 mg UNSCH PRN IV 06/29/16 10:15 06/30/16 09:15 (Tylenol) 650 mg UNSCH PRN PO 06/29/16 10:15 (Benadryl) 25 mg UNSCH PRN PO 06/29/16 10:15 (Nitrostat Sl) 0.4 mg UNSCH PRN SL 06/29/16 10:15 (Catapres) 0.1 mg UNSCH PRN PO 06/29/16 10:15 (Gelfoam 12 Mm/7 Mm Top) 1 foam UNSCH PRN TOP 06/29/16 10:15 (Lipitor) 10 mg HS PO 06/29/16 21:00 06/30/16 19:24 (Proscar) 5 mg DAILY PO 06/30/16 09:00 07/01/16 12:01 (Flonase Mario Spr) 1 spray DAILY EACH NARE 06/30/16 09:00 (Claritin) 10 mg DAILY PO 06/30/16 09:00 07/01/16 12:01 (Percocet 5-325 Mg) 1 tab Q6H PRN PO 06/29/16 10:15 (Flomax) 0.4 mg DAILY PO 06/30/16 09:00 07/01/16 12:01 (Coumadin) 5 mg SuMoWeFr@16 PO 06/30/16 16:00 Hold 06/30/16 15:25 (Coumadin) 7.5 mg TuThSa@16 PO 06/29/16 16:00 Hold 07/01/16 16:00 (Norvasc) 5 mg DAILY PO 06/30/16 09:00 07/01/16 12:02 (Apresoline Inj) 10 mg Q3HR PRN IV PUSH 06/29/16 16:00 07/02/16 16:41 Miscellaneous Information Patient in critical care unit? Ass... Q361D XX 06/29/16 17:45 06/29/16 17:45 (Chlorhexidine 2% Cloth) 3 pack DAILY@04 TOP 06/30/16 04:00 07/04/16 04:01 07/02/16 00:40 (Chlorhexidine 2% Cloth) 3 pack UNSCH PRN TOP 06/29/16 17:45 07/04/16 17:41 (Trandate Inj) 20 mg Q4H PRN IV PUSH 06/29/16 18:00 07/02/16 14:44 Furosemide 40 mg 40 mg BID IV 06/29/16 23:00 Hold 07/01/16 22:07 (Coumadin Consult Pharmacy) 0 ml @ 0 mls/hr UNSCH OTHER 06/30/16 10:00 (NovoLOG SUPPLEMENTAL SCALE) 1 Q4H SQ 06/30/16 12:00 07/01/16 03:37 (D50w (Vial) Inj) 25 ml UNSCH PRN IV PUSH 06/30/16 11:15 Glucagon 1 mg 1 mg UNSCH PRN OTHER 06/30/16 11:15 (Maxipime Inj/NS Inj) 100 ml @ 200 mls/hr Q24H IV 06/30/16 06:00 07/03/16 05:44 (Haldol Inj) 1 mg Q4H PRN IV 06/30/16 18:45 06/30/16 23:33 (Ativan Inj) 0.5 mg Q4H PRN IV PUSH 06/30/16 16:00 07/02/16 04:41 (SEROquel) 25 mg BID PO 07/01/16 09:00 07/01/16 12:02 (Apresoline) 50 mg Q8H PO 07/01/16 17:00 Morphine Sulfate 2 mg 2 mg Q3H PRN IV PUSH 07/01/16 17:30 Sodium Chloride 1,000 ml @ 50 mls/hr Q20H IV 07/02/16 09:30 07/02/16 20:53 Thiamine HCl 100 mg/Sodium Chloride 101 ml @ 101 mls/hr DAILY IV 07/02/16 10:00 07/03/16 07:51 Acyclovir Sodium 300 mg/Sodium Chloride 100 ml @ 100 mls/hr Q24H IV 07/02/16 12:00 07/02/16 12:07 (Cardene Inj/NS 250 ml Inj) 260 ml @ 0 mls/hr TITRATE IV 07/02/16 20:00 07/03/16 07:51 Allergies Allergies Coded Allergies No Known Allergies (Verified06/15/16) Review of Systems All other ROS: ROS reviewed as documented in chart Exam I&O / VS 07/02/16 07/02/16 07/03/16 15:00 23:00 07:00 Intake Total 274 ml 244 ml 280 ml Output Total 200 ml 180 ml 200 ml Balance 74 ml 64 ml 80 ml IV Total 274 ml 244 ml 280 ml Output Urine Total 200 ml 180 ml 200 ml Vital Signs Date Time Temp Pulse Resp B/P Pulse Ox O2 Delivery O2 Flow Rate FiO2 07/03/16 10:00 75 07/03/16 08:00 99.0 83 18 147/67 100 07/03/16 08:00 106 07/03/16 08:00 100 Nasal Cannula 5.00 07/03/16 06:00 85 07/03/16 04:00 97 Nasal Cannula 5.00 07/03/16 04:00 87 07/03/16 04:00 98.8 87 21 163/70 97 07/03/16 02:00 89 07/03/16 00:00 98 Nasal Cannula 5.00 07/03/16 00:00 88 07/03/16 00:00 98.9 88 17 160/95 96 07/02/16 22:00 75 07/02/16 20:00 99.0 82 18 170/88 97 07/02/16 20:00 97 Nasal Cannula 5.00 07/02/16 20:00 99 07/02/16 19:37 100 Nasal Cannula 5.00 07/02/16 16:00 97.1 79 20 181/124 98 07/02/16 16:00 98 Nasal Cannula 5.00 35 Exam Comments sitting up, more alert, follows imple request, ox 2. dysphonic speech, ou 2mm sluggish, face sym, nicholas to tactile, atrophic legs, msr depressed, no clonus, planterflexor Objective Micro and Labs Laboratory Tests Test 07/02/16 07/03/16 13:43 04:46 White Blood Count 12.2 12.4 Red Blood Count 2.97 2.75 Hemoglobin 9.6 9.0 Hematocrit 29.1 26.9 Mean Corpuscular Volume 98.0 98.1 Mean Corpuscular Hemoglobin 32.4 32.9 Mean Corpuscular Hemoglobin 33.1 33.5 Concent Red Cell Distribution Width 16.0 15.6 Platelet Count 357 351 Mean Platelet Volume 8.2 8.3 Neutrophils (%) (Auto) 86.8 Lymphocytes (%) (Auto) 4.8 Monocytes (%) (Auto) 7.8 Eosinophils (%) (Auto) 0.1 Basophils (%) (Auto) 0.5 Neutrophils # (Auto) 10.6 Lymphocytes # (Auto) 0.6 Monocytes # (Auto) 1.0 Eosinophils # (Auto) 0.0 Basophils # (Auto) 0.1 CBC Comment DIFF FINAL Differential Comment Erythrocyte Sedimentation Rate 73 Ammonia 12 C-Reactive Protein 13.00 Vitamin B12 Level GREATER THAN 2000 Thyroid Stimulating Hormone 0.708 3rd Gen Prothrombin Time 30.6 Prothromb Time International 2.7 Ratio Sodium Level 143 Potassium Level 4.2 Chloride Level 104 Carbon Dioxide Level 25.0 Anion Gap 14 Blood Urea Nitrogen 66 Creatinine 5.49 Estimat Glomerular Filtration 10 Rate Random Glucose 132 Calcium Level 10.4 Phosphorus Level 7.1 Albumin 3.2 Date/Time Procedure Status Source Growth 07/01/16 19:00 Gram Stain - Final Resulted Fluid Peritoneal Fluid 07/01/16 19:00 Body Fluid Culture - Preliminary Resulted Staph Sp Coagulase Negative 06/29/16 10:52 Aerobic Blood Culture - Preliminary Resulted Blood Peripheral NO GROWTH IN 4 DAYS 06/29/16 10:52 Anaerobic Blood Culture - Preliminary Resulted Blood Peripheral NO GROWTH IN 4 DAYS Problem Qualifiers (1) Chronic renal failure: Qualified Code: N18.5 - Chronic renal failure, stage 5 (2) HTN (hypertension): Qualified Code: I10 - Essential hypertension Ashu Shaikh MD Jul 03, 2016 12:09
[2016-07-03] MEDS: ACYCLOVIR IV SCH (12:13)
[2016-07-03] MEDS: SODIUM CHLORIDE 0.9% IV SCH (12:13)
[2016-07-03] MEDS: SODIUM CHLOR 0.9% 1000 ML INJ 1,000 ML IV SCH (20:11)
[2016-07-03] MEDS: ATORVASTATIN 10 MG TAB PO SCH (20:19)
[2016-07-04] VITALS (14 sets, daily range): BP systolic 146–170; BP diastolic 66–77; PULSE 70–97; RESP 19–29; TEMP 98.3–99.5; O2SAT 92–100
[2016-07-04] MEDS: niCARdipine INJ 25 MG in SODIUM CHLOR 0.9% 250 ML INJ 250 ML IV SCH ×5 (00:02→23:20)
[2016-07-04] MEDS: hydrALAZINE HCL 25 MG TAB PO SCH ×3 (00:03→16:01)
[2016-07-04] MEDS: CHLORHEXIDINE GLUCONATE 2 % 1 PACK (2 CLOTHS)(taper/protocol) TOP SCH (04:00)
[2016-07-04] MEDS: INSULIN ASPART SUPPLEMENTAL SCALE SQ SCH ×7 (04:00→23:25)
[2016-07-04] MEDS: CEFEPIME INJ 1,000 MG in SODIUM CHLORIDE 0.9% INJ 100 ML IV SCH (05:18)
[2016-07-04 06:39] LABS: INTERNATIONAL NORMALIZED RATIO 2.6 RATIO; PROTHROMBIN TIME - PATIENT 29.4 SEC (9.8-11.6)
[2016-07-04 07:36] LABS: AUTOMATED NEUTROPHIL # 7.4 TH/MM3 (1.8-7.7); BASOPHIL # 0.1 TH/MM3 (0-0.2); BASOPHIL % 0.5 % (0.0-2.0); EOSINOPHIL # 0.3 TH/MM3 (0-0.4); EOSINOPHIL % 2.9 % (0.0-4.0); HEMATOCRIT 26.2 % (39.0-51.0); HEMO FLAGS DIFF FINAL; LYMPH % 9.5 % (9.0-44.0); LYMPHOCYTE # 0.9 TH/MM3 (1.0-4.8); MEAN CELL VOLUME 97.5 FL (80.0-100.0); MEAN CORPUSCULAR HEMOGLOBIN 32.7 PG (27.0-34.0); MEAN CORPUSCULAR HGB CONC 33.5 % (32.0-36.0); MONO % 10.7 % (0.0-8.0); NEUT % 76.4 % (16.0-70.0); PLATELET COUNT 322 TH/MM3 (150-450); RED BLOOD COUNT 2.69 MIL/MM3 (4.50-5.90); RED CELL DISTRIBUTION WIDTH 14.9 % (11.6-17.2); WHITE BLOOD COUNT 9.8 TH/MM3 (4.0-11.0)
[2016-07-04] MEDS: LORATADINE 10 MG TAB PO SCH (09:00)
[2016-07-04] MEDS: THIAMINE INJ 100 MG in SODIUM CHLORIDE 0.9% INJ 100 ML IV SCH (09:00)
[2016-07-04] MEDS: QUEtiapine FUMARATE 25 MG TAB PO SCH ×2 (09:00→20:46)
[2016-07-04] MEDS: TAMSULOSIN HCL 0.4 MG CAP PO SCH (09:00)
[2016-07-04] MEDS: FLUTICASONE PROPIONATE 50 MCG/ACT 16 GM NASAL SPRAY EACH NARE SCH (09:00)
[2016-07-04] MEDS: FINASTERIDE 5 MG TAB PO SCH (09:00)
--- NOTE | 2016-07-04 09:41 | HHI.PR ---
Subjective Remarks pt awake and oriented. says he had diarrhea at home then told him to stop meds. his bp elevated and he became confused. Objective Vitals oriented follows commands moves all 4 exts' cherry heart reg lung cta abd s/nt. pd cath. Vital Signs Date Time Temp Pulse Resp B/P Pulse Ox O2 Delivery O2 Flow Rate FiO2 07/04/16 08:37 100 Nasal Cannula 4.00 07/04/16 06:00 97 07/04/16 04:00 95 07/04/16 04:00 98.9 95 22 156/72 92 07/04/16 04:00 96 Nasal Cannula 4.00 07/04/16 02:00 83 07/04/16 00:00 96 Nasal Cannula 4.00 07/04/16 00:00 99.5 95 20 167/71 96 07/04/16 00:00 95 07/03/16 22:00 83 07/03/16 20:00 96 Nasal Cannula 4.00 07/03/16 20:00 96 07/03/16 20:00 98.1 96 22 170/74 96 07/03/16 18:00 91 07/03/16 16:00 87 07/03/16 16:00 98.1 87 23 160/74 96 07/03/16 16:00 96 Nasal Cannula 4.00 07/03/16 14:00 77 07/03/16 12:00 87 07/03/16 12:00 98.4 87 22 153/73 100 07/03/16 12:00 100 Nasal Cannula 4.00 07/03/16 10:00 75 07/03/16 07/03/16 07/04/16 15:00 23:00 07:00 Intake Total 779 ml 802 ml 580 ml Output Total 1675 ml 100 ml 100 ml Balance -896 ml 702 ml 480 ml Intake Oral 300 ml 60 ml IV Total 779 ml 502 ml 520 ml Output Urine Total 175 ml 100 ml 100 ml Hemodialysis 1500 ml Result Diagram: 07/04/16 0555 07/03/16 0446 A/P Problem List: (1) Mental status change Status: Acute Plan: Pt has ESRD converted from PD to HD in April for ineffective fluid removal. He presents with severe htn and metabolic encephalopathy. CT imaging in ED negative for ICH/CVA. mri neg for cva exclude underlying sepsis. peritoneal fluid only 1cc removed and grew staph epi Pt more oriented today and says he was just feeling bad/had diarrhea x 1 and fell down. Pt says instructed him to stop home meds and his bp elevated...then confusion. 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 on cardene. titrate off and titrate up po meds. once off cardene then transfer to med floor. ivf HD 3x weekly. last HD 07/03 cont broad abx coverage. dvt prophylaxis (2) ESRD (end stage renal disease) on dialysis Status: Chronic Plan: nephrology following (3) HTN (hypertension) Status: Chronic Plan: see above (4) BPH (benign prostatic hyperplasia) Status: Chronic Plan: home meds (5) Diabetes Status: Chronic Plan: ssi. (6) Atrial fibrillation Status: Chronic Plan: home meds as tolerated. Problem Qualifiers (1) HTN (hypertension): Qualified Code: I10 - Essential hypertension Javy Hudson MD Jul 04, 2016 09:41
[2016-07-04] MEDS ORDERED: cloNIDine HCL 0.1 MG TAB PO PRN (09:45)
[2016-07-04] MEDS ORDERED: LISINOPRIL 20 MG TAB PO ONE (10:00)
--- NOTE | 2016-07-04 10:00 | HHI.PR ---
Review/Management Diagnosis/Plan: (1) Encephalopathy, metabolic Plan: etiology: infection vs severe htn apparently did not receive bp meds at home possibly related to peritoneal infection recs more alert wbc count down estrellita d/c iv acyclovir follow exam (2) Hypertensive encephalopathy (3) Chronic renal failure (4) HTN (hypertension) Subjective Subjective Comments No acute events reported No headache No chest pain No dyspnea Active Medications Current Medications Medications (Trade) Dose Ordered Sig/Terra Route Start Time Stop Time Status Last Admin (NS 1000 ml Inj) 1,000 ml @ 0 mls/hr Q0M PRN IV 06/29/16 10:03 07/03/16 08:31 Heparin Sodium (Porcine) 8000 units 8,000 units UNSCH PRN IVF 06/29/16 10:15 Sodium Chloride 1,000 ml @ 200 mls/hr Q5H PRN IV 06/29/16 10:03 (NS 1000 ml Inj) 1,000 ml @ 0 mls/hr Q0M PRN IV 06/29/16 10:03 (Mannitol Inj) 12.5 gm UNSCH PRN IV 06/29/16 10:15 (Albumin 25% Inj) 25 gm UNSCH PRN IV 06/29/16 10:15 (NS Flush) 5 ml UNSCH PRN IV FLUSH 06/29/16 10:15 (Heparin Inj) UNSCH PRN .XX 06/29/16 10:15 07/03/16 08:32 (Gentamicin (Dialysis) Inj) 20 mg UNSCH PRN IV 06/29/16 10:15 07/03/16 08:32 (Zofran Inj) 4 mg UNSCH PRN IV 06/29/16 10:15 06/30/16 09:15 (Tylenol) 650 mg UNSCH PRN PO 06/29/16 10:15 (Benadryl) 25 mg UNSCH PRN PO 06/29/16 10:15 (Nitrostat Sl) 0.4 mg UNSCH PRN SL 06/29/16 10:15 (Gelfoam 12 Mm/7 Mm Top) 1 foam UNSCH PRN TOP 06/29/16 10:15 (Lipitor) 10 mg HS PO 06/29/16 21:00 07/03/16 20:19 (Proscar) 5 mg DAILY PO 06/30/16 09:00 07/04/16 09:00 (Flonase Mario Spr) 1 spray DAILY EACH NARE 06/30/16 09:00 07/04/16 09:00 (Claritin) 10 mg DAILY PO 06/30/16 09:00 07/04/16 09:00 (Percocet 5-325 Mg) 1 tab Q6H PRN PO 06/29/16 10:15 (Flomax) 0.4 mg DAILY PO 06/30/16 09:00 07/04/16 09:00 (Apresoline Inj) 10 mg Q3HR PRN IV PUSH 06/29/16 16:00 07/02/16 16:41 Miscellaneous Information Patient in critical care unit? Ass... Q361D XX 06/29/16 17:45 06/29/16 17:45 (Chlorhexidine 2% Cloth) 3 pack UNSCH PRN TOP 06/29/16 17:45 07/04/16 17:41 Labetalol HCl 20 mg 20 mg Q4H PRN IV PUSH 06/29/16 18:00 07/02/16 14:44 (Coumadin Consult Pharmacy) 0 ml @ 0 mls/hr UNSCH OTHER 06/30/16 10:00 (NovoLOG SUPPLEMENTAL SCALE) 1 Q4H SQ 06/30/16 12:00 07/03/16 20:00 (D50w (Vial) Inj) 25 ml UNSCH PRN IV PUSH 06/30/16 11:15 Glucagon 1 mg 1 mg UNSCH PRN OTHER 06/30/16 11:15 (Maxipime Inj/NS Inj) 100 ml @ 200 mls/hr Q24H IV 06/30/16 06:00 07/04/16 05:18 (Haldol Inj) 1 mg Q4H PRN IV 06/30/16 18:45 06/30/16 23:33 (Ativan Inj) 0.5 mg Q4H PRN IV PUSH 06/30/16 16:00 07/02/16 04:41 (SEROquel) 25 mg BID PO 07/01/16 09:00 07/04/16 09:00 (Apresoline) 50 mg Q8H PO 07/01/16 17:00 07/04/16 09:00 Morphine Sulfate 2 mg 2 mg Q3H PRN IV PUSH 07/01/16 17:30 Sodium Chloride 1,000 ml @ 50 mls/hr Q20H IV 07/02/16 09:30 07/02/16 20:53 Thiamine HCl 100 mg/Sodium Chloride 101 ml @ 101 mls/hr DAILY IV 07/02/16 10:00 07/04/16 09:00 Acyclovir Sodium 300 mg/Sodium Chloride 100 ml @ 100 mls/hr Q24H IV 07/02/16 12:00 07/03/16 12:13 (Cardene Inj/NS 250 ml Inj) 260 ml @ 0 mls/hr TITRATE IV 07/02/16 20:00 07/04/16 07:25 (Coumadin) 4 mg DAILY@1600 PO 07/04/16 16:00 (Prinivil) 20 mg Q12HR PO 07/04/16 21:00 (Prinivil) 20 mg ONCE ONCE PO 07/04/16 10:00 07/04/16 10:01 (Catapres) 0.1 mg Q4H PRN PO 07/04/16 09:45 Allergies Allergies Coded Allergies No Known Allergies (Verified06/15/16) Review of Systems All other ROS: ROS reviewed as documented in chart Exam I&O / VS 07/03/16 07/03/16 07/04/16 15:00 23:00 07:00 Intake Total 779 ml 802 ml 580 ml Output Total 1675 ml 100 ml 100 ml Balance -896 ml 702 ml 480 ml Intake Oral 300 ml 60 ml IV Total 779 ml 502 ml 520 ml Output Urine Total 175 ml 100 ml 100 ml Hemodialysis 1500 ml Vital Signs Date Time Temp Pulse Resp B/P Pulse Ox O2 Delivery O2 Flow Rate FiO2 07/04/16 08:37 100 Nasal Cannula 4.00 07/04/16 06:00 97 07/04/16 04:00 95 07/04/16 04:00 98.9 95 22 156/72 92 07/04/16 04:00 96 Nasal Cannula 4.00 07/04/16 02:00 83 07/04/16 00:00 96 Nasal Cannula 4.00 07/04/16 00:00 99.5 95 20 167/71 96 07/04/16 00:00 95 07/03/16 22:00 83 07/03/16 20:00 96 Nasal Cannula 4.00 07/03/16 20:00 96 07/03/16 20:00 98.1 96 22 170/74 96 07/03/16 18:00 91 07/03/16 16:00 87 07/03/16 16:00 98.1 87 23 160/74 96 07/03/16 16:00 96 Nasal Cannula 4.00 07/03/16 14:00 77 07/03/16 12:00 87 07/03/16 12:00 98.4 87 22 153/73 100 07/03/16 12:00 100 Nasal Cannula 4.00 07/03/16 10:00 75 Exam Comments sitting up, more alert, follows imple request, ox 2. dysphonic speech, ou 2mm sluggish, face sym, nicholas to tactile, atrophic legs, msr depressed, no clonus, planterflexor Objective Micro and Labs Laboratory Tests Test 07/04/16 05:55 White Blood Count 9.8 Red Blood Count 2.69 Hemoglobin 8.8 Hematocrit 26.2 Mean Corpuscular Volume 97.5 Mean Corpuscular Hemoglobin 32.7 Mean Corpuscular Hemoglobin 33.5 Concent Red Cell Distribution Width 14.9 Platelet Count 322 Mean Platelet Volume 8.8 Neutrophils (%) (Auto) 76.4 Lymphocytes (%) (Auto) 9.5 Monocytes (%) (Auto) 10.7 Eosinophils (%) (Auto) 2.9 Basophils (%) (Auto) 0.5 Neutrophils # (Auto) 7.4 Lymphocytes # (Auto) 0.9 Monocytes # (Auto) 1.0 Eosinophils # (Auto) 0.3 Basophils # (Auto) 0.1 CBC Comment DIFF FINAL Differential Comment Prothrombin Time 29.4 Prothromb Time International 2.6 Ratio Date/Time Procedure Status Source Growth 07/01/16 19:00 Gram Stain - Final Resulted Fluid Peritoneal Fluid 07/01/16 19:00 Body Fluid Culture - Preliminary Resulted Staph Sp Coagulase Negative 06/29/16 10:52 Aerobic Blood Culture - Preliminary Resulted Blood Peripheral NO GROWTH IN 4 DAYS 06/29/16 10:52 Anaerobic Blood Culture - Preliminary Resulted Blood Peripheral NO GROWTH IN 4 DAYS Problem Qualifiers (1) Chronic renal failure: Qualified Code: N18.5 - Chronic renal failure, stage 5 (2) HTN (hypertension): Qualified Code: I10 - Essential hypertension Ashu Shaikh MD Jul 04, 2016 10:00
[2016-07-04] MEDS: SODIUM CHLORIDE 0.9% IV SCH (11:24)
[2016-07-04] MEDS: ACYCLOVIR IV SCH (11:24)
--- NOTE | 2016-07-04 12:58 | HHI.NPPN ---
Subjective History of Present Illness The patient is a 75 yo [place] male who is known to our services for ESRD. According to reports from his , he was in his normal state of health all yesterday besides a fall from his wheelchair. This was not witnessed as she was at work, but he fell on R wrist. Was on the floor when she came home from work and it is not clear at the present how long he was on the ground. States this AM she woke him up for transportation to his HD treatment, and he was mentally altered. EMS was called for transport to [facility] for evaluation. Has has CT of head that was negative for stroke. BP quite elevated. Has been previously instructed to hold BP medications on HD days, but to take as scheduled on non-HD days, but given his fall yesterday, it is not certain if he took any of his BP medications. Seen in ED room and the patient himself if oriented to person and place, but not time. He is very agitated saying he wants to get up out of the bed. Does keep pointing to his right wrist saying it hurts. Interval History Patient more awake today having an appropriate conversation with me. No verbal complaints currently. Review of Systems General General Remarks Unable to obtain secondary to patient's clinical status. Musculoskeletal MS Remarks R wrist pain Objective Data Data 07/03/16 07/04/16 19:00 07:00 Intake Total 779 ml 1382 ml Output Total 1675 ml 200 ml Balance -896 ml 1182 ml Intake Oral 360 ml IV Total 779 ml 1022 ml Output Urine Total 175 ml 200 ml Hemodialysis 1500 ml Vital Signs Date Time Temp Pulse Resp B/P Pulse Ox O2 Delivery O2 Flow Rate FiO2 07/04/16 12:00 98.3 78 19 146/66 100 07/04/16 12:00 100 Nasal Cannula 4.00 07/04/16 12:00 78 07/04/16 10:00 96 07/04/16 08:37 100 Nasal Cannula 4.00 07/04/16 08:00 98.5 85 21 170/77 99 07/04/16 08:00 85 07/04/16 08:00 99 Nasal Cannula 4.00 07/04/16 06:00 97 07/04/16 04:00 95 07/04/16 04:00 98.9 95 22 156/72 92 07/04/16 04:00 96 Nasal Cannula 4.00 07/04/16 02:00 83 07/04/16 00:00 96 Nasal Cannula 4.00 07/04/16 00:00 99.5 95 20 167/71 96 07/04/16 00:00 95 07/03/16 22:00 83 07/03/16 20:00 96 Nasal Cannula 4.00 07/03/16 20:00 96 07/03/16 20:00 98.1 96 22 170/74 96 07/03/16 18:00 91 07/03/16 16:00 87 07/03/16 16:00 98.1 87 23 160/74 96 07/03/16 16:00 96 Nasal Cannula 4.00 07/03/16 14:00 77 -: 07/04/16 0555 07/03/16 0446 Tubes & Lines: Perma-Cath, Tenckhoff Catheter Physical Exam General Appearance: No Acute Distress, Comfortable, Malnourished Eyes Eye Exam: Sclera White Neck Neck Exam: Neck Supple Pulmonary Resp Exam: Clear Bilaterally, Breath Sounds Equal Cardiology CV Exam: Irregular Gastrointestinal/Abdomen GI Exam: Soft, Non-Tender Integumentary Skin Exam: Dry Extremeties Extremities Exam: No Edema Neurologic Neuro Exam: Alert, Awake, Obtunded Psychiatric Psych Exam: Appropriate Responses Assessment/Plan Problem List: (1) ESRD (end stage renal disease) on dialysis Plan: Patient's blood cultures negative after 48 hours. Peritoneal culture pending. Continue hemodialysis Tuesday, and Tuesday. Hold IV Lasix OK for gentle hydration as he has virtually no intake. Monitor for signs of fluid overload. Medications should be adjusted for ESRD. Avoid gadolinium. (2) Uremic encephalopathy Plan: Is improved. Unsure if the encephalopathy was related to uncontrolled hypertension and or apparent peritonitis Etiology of altered mental status uncertain. Aluminum level pending. Appreciate neurology input (3) HTN (hypertension) Plan: On Cardene drip (4) Hypercalcemia Plan: Improved. No evidence of myeloma. PTH related protein not elevated. Intact PTH level elevated but secondary hyperparathyroidism of renal disease is a consideration. Difficult to say if the patient may have a primary hyperparathyroidism or tertiary hyperparathyroidism in the setting of his end- stage renal disease. We'll consider adding Sensipar. (5) Peritonitis due to infected peritoneal dialysis catheter Plan: Patient was not on peritoneal dialysis prior to admission as he was previously switched from peritoneal to hemodialysis secondary to ultrafiltration failure on peritoneal dialysis with fluid overload. I do not believe despite the patient's previous hope that we can return to peritoneal dialysis given previous failure of same. I discussed this with him and he is now agreeable to have the peritoneal dialysis catheter removed which I believe is prudent at this point in time given apparent infection. Continue vancomycin. We'll consult Dr. Barnes for removal of peritoneal dialysis catheter and evaluation for AV dialysis fistula. Blood cultures are negative. Continue to use current PermCath. Plan Total time in direct patient care 38 minutes. Problem Qualifiers (1) HTN (hypertension): Qualified Code: I10 - Essential hypertension Danita Maria MD Jul 04, 2016 12:58
[2016-07-04] MEDS ORDERED: WARFARIN SOD 4 MG TAB PO SCH (16:00)
[2016-07-04] MEDS: LANTHANUM CARBONATE 500 MG CHEWABLE TABLET CHEW SCH (17:07)
[2016-07-04] MEDS: ATORVASTATIN 10 MG TAB PO SCH (20:46)
[2016-07-04] MEDS: LISINOPRIL 20 MG TAB PO SCH (20:46)
[2016-07-04] MEDS: SODIUM CHLOR 0.9% 1000 ML INJ 1,000 ML IV SCH (20:47)
[2016-07-05] VITALS (12 sets, daily range): BP systolic 153–167; BP diastolic 70–77; PULSE 63–87; RESP 16–24; TEMP 97.6–98.8; O2SAT 93–100
[2016-07-05] MEDS: hydrALAZINE HCL 25 MG TAB PO SCH ×4 (00:59→18:12)
[2016-07-05] MEDS: INSULIN ASPART SUPPLEMENTAL SCALE SQ SCH ×5 (04:00→20:00)
[2016-07-05] MEDS: CEFEPIME INJ 1,000 MG in SODIUM CHLORIDE 0.9% INJ 100 ML IV SCH (04:23)
[2016-07-05 07:14] LABS: PROTHROMBIN TIME - PATIENT 23.1 SEC (9.8-11.6)
[2016-07-05 07:30] LABS: BICARBONATE 25.5 MEQ/L (21.0-32.0); POTASSIUM 3.7 MEQ/L (3.5-5.1)
[2016-07-05] MEDS: THIAMINE INJ 100 MG in SODIUM CHLORIDE 0.9% INJ 100 ML IV SCH (08:45)
[2016-07-05] MEDS: FINASTERIDE 5 MG TAB PO SCH (08:46)
[2016-07-05] MEDS: LORATADINE 10 MG TAB PO SCH (08:46)
[2016-07-05] MEDS: LISINOPRIL 20 MG TAB PO SCH ×2 (08:46→20:32)
[2016-07-05] MEDS: TAMSULOSIN HCL 0.4 MG CAP PO SCH (08:46)
[2016-07-05] MEDS: QUEtiapine FUMARATE 25 MG TAB PO SCH ×2 (08:46→20:32)
[2016-07-05] MEDS: LANTHANUM CARBONATE 500 MG CHEWABLE TABLET CHEW SCH ×3 (09:00→18:00)
[2016-07-05] MEDS: FLUTICASONE PROPIONATE 50 MCG/ACT 16 GM NASAL SPRAY EACH NARE SCH (09:22)
--- NOTE | 2016-07-05 09:57 | HHI.PR ---
Review/Management Diagnosis/Plan: (1) Encephalopathy, metabolic Plan: etiology: infection vs severe htn apparently did not receive bp meds at home possibly related to peritoneal infection recs mental status improved bp still elevated; on gtt going for peritoneal cath removal and plan for hd catheter insertion follow exam (2) Hypertensive encephalopathy (3) Chronic renal failure (4) HTN (hypertension) Subjective Subjective Comments No acute events reported No headache No chest pain No dyspnea Active Medications Current Medications Medications (Trade) Dose Ordered Sig/Terra Route Start Time Stop Time Status Last Admin (NS 1000 ml Inj) 1,000 ml @ 0 mls/hr Q0M PRN IV 06/29/16 10:03 07/03/16 08:31 Heparin Sodium (Porcine) 8000 units 8,000 units UNSCH PRN IVF 06/29/16 10:15 Sodium Chloride 1,000 ml @ 200 mls/hr Q5H PRN IV 06/29/16 10:03 (NS 1000 ml Inj) 1,000 ml @ 0 mls/hr Q0M PRN IV 06/29/16 10:03 (Mannitol Inj) 12.5 gm UNSCH PRN IV 06/29/16 10:15 (Albumin 25% Inj) 25 gm UNSCH PRN IV 06/29/16 10:15 (NS Flush) 5 ml UNSCH PRN IV FLUSH 06/29/16 10:15 (Heparin Inj) UNSCH PRN .XX 06/29/16 10:15 07/03/16 08:32 (Gentamicin (Dialysis) Inj) 20 mg UNSCH PRN IV 06/29/16 10:15 07/03/16 08:32 (Zofran Inj) 4 mg UNSCH PRN IV 06/29/16 10:15 06/30/16 09:15 (Tylenol) 650 mg UNSCH PRN PO 06/29/16 10:15 (Benadryl) 25 mg UNSCH PRN PO 06/29/16 10:15 (Nitrostat Sl) 0.4 mg UNSCH PRN SL 06/29/16 10:15 (Gelfoam 12 Mm/7 Mm Top) 1 foam UNSCH PRN TOP 06/29/16 10:15 (Lipitor) 10 mg HS PO 06/29/16 21:00 07/04/16 20:46 (Proscar) 5 mg DAILY PO 06/30/16 09:00 07/05/16 08:46 (Flonase Mario Spr) 1 spray DAILY EACH NARE 06/30/16 09:00 07/05/16 09:22 (Claritin) 10 mg DAILY PO 06/30/16 09:00 07/05/16 08:46 (Percocet 5-325 Mg) 1 tab Q6H PRN PO 06/29/16 10:15 07/04/16 11:25 (Flomax) 0.4 mg DAILY PO 06/30/16 09:00 07/05/16 08:46 (Apresoline Inj) 10 mg Q3HR PRN IV PUSH 06/29/16 16:00 07/02/16 16:41 Miscellaneous Information Patient in critical care unit? Ass... Q361D XX 06/29/16 17:45 06/29/16 17:45 Labetalol HCl 20 mg 20 mg Q4H PRN IV PUSH 06/29/16 18:00 07/02/16 14:44 (Coumadin Consult Pharmacy) 0 ml @ 0 mls/hr UNSCH OTHER 06/30/16 10:00 (NovoLOG SUPPLEMENTAL SCALE) 1 Q4H SQ 06/30/16 12:00 07/04/16 20:46 (D50w (Vial) Inj) 25 ml UNSCH PRN IV PUSH 06/30/16 11:15 Glucagon 1 mg 1 mg UNSCH PRN OTHER 06/30/16 11:15 (Maxipime Inj/NS Inj) 100 ml @ 200 mls/hr Q24H IV 06/30/16 06:00 07/05/16 04:23 (Haldol Inj) 1 mg Q4H PRN IV 06/30/16 18:45 06/30/16 23:33 (Ativan Inj) 0.5 mg Q4H PRN IV PUSH 06/30/16 16:00 07/02/16 04:41 (SEROquel) 25 mg BID PO 07/01/16 09:00 07/05/16 08:46 (Apresoline) 50 mg Q8H PO 07/01/16 17:00 07/05/16 08:46 Morphine Sulfate 2 mg 2 mg Q3H PRN IV PUSH 07/01/16 17:30 Sodium Chloride 1,000 ml @ 50 mls/hr Q20H IV 07/02/16 09:30 07/04/16 20:47 Thiamine HCl 100 mg/Sodium Chloride 101 ml @ 101 mls/hr DAILY IV 07/02/16 10:00 07/05/16 08:45 (Cardene Inj/NS 250 ml Inj) 260 ml @ 0 mls/hr TITRATE IV 07/02/16 20:00 07/04/16 23:20 (Prinivil) 20 mg Q12HR PO 07/04/16 21:00 07/05/16 08:46 (Catapres) 0.1 mg Q4H PRN PO 07/04/16 09:45 (Fosrenol Chew) 1,000 mg TID CHEW 07/04/16 18:00 07/04/16 17:07 (Coumadin) 5 mg DAILY@16 PO 07/05/16 16:00 Allergies Allergies Coded Allergies No Known Allergies (Verified06/15/16) Review of Systems All other ROS: ROS reviewed as documented in chart Exam I&O / VS 07/04/16 07/04/16 07/05/16 15:00 23:00 07:00 Intake Total 1004 ml 801 ml 782 ml Output Total 125 ml 125 ml 225 ml Balance 879 ml 676 ml 557 ml Intake Oral 180 ml 120 ml 120 ml IV Total 824 ml 681 ml 662 ml Output Urine Total 125 ml 125 ml 225 ml Vital Signs Date Time Temp Pulse Resp B/P Pulse Ox O2 Delivery O2 Flow Rate FiO2 07/05/16 06:00 76 07/05/16 04:00 98.5 79 22 158/72 95 07/05/16 04:00 79 07/05/16 02:00 80 07/05/16 00:00 87 07/05/16 00:00 98.8 87 24 155/70 93 07/04/16 22:00 76 07/04/16 20:00 70 07/04/16 20:00 98.5 70 20 154/71 96 07/04/16 19:40 96 Nasal Cannula 2.00 07/04/16 18:00 89 07/04/16 16:00 90 07/04/16 16:00 100 Nasal Cannula 2.00 07/04/16 16:00 98.6 90 29 160/71 100 07/04/16 14:00 75 07/04/16 12:00 98.3 78 19 146/66 100 07/04/16 12:00 100 Nasal Cannula 4.00 07/04/16 12:00 78 07/04/16 10:00 96 Exam Comments alert,ox 3. dysphonic speech, follows simple request, ou 2mm sluggish, face sym , nicholas to tactile, atrophic legs, msr depressed, no clonus, planterflexor Objective Micro and Labs Laboratory Tests Test 07/05/16 06:45 Prothrombin Time 23.1 Prothromb Time International 2.0 Ratio Sodium Level 140 Potassium Level 3.7 Chloride Level 103 Carbon Dioxide Level 25.5 Anion Gap 12 Blood Urea Nitrogen 54 Creatinine 4.79 Estimat Glomerular Filtration 12 Rate Random Glucose 124 Calcium Level 10.2 Date/Time Procedure Status Source Growth 07/01/16 19:00 Gram Stain - Final Complete Fluid Peritoneal Fluid 07/01/16 19:00 Body Fluid Culture - Final Complete Staphylococcus Epidermidis Problem Qualifiers (1) Chronic renal failure: Qualified Code: N18.5 - Chronic renal failure, stage 5 (2) HTN (hypertension): Qualified Code: I10 - Essential hypertension Ashu Shaikh MD Jul 05, 2016 09:57
[2016-07-05] MEDS: niCARdipine INJ 25 MG in SODIUM CHLOR 0.9% 250 ML INJ 250 ML IV SCH ×2 (11:12→21:50)
--- NOTE | 2016-07-05 11:37 | HHI.NPPN ---
Subjective History of Present Illness The patient is a 75 yo [place] male who is known to our services for ESRD. According to reports from his , he was in his normal state of health all yesterday besides a fall from his wheelchair. This was not witnessed as she was at work, but he fell on R wrist. Was on the floor when she came home from work and it is not clear at the present how long he was on the ground. States this AM she woke him up for transportation to his HD treatment, and he was mentally altered. EMS was called for transport to [facility] [place] for evaluation. Has has CT of head that was negative for stroke. BP quite elevated. Has been previously instructed to hold BP medications on HD days, but to take as scheduled on non-HD days, but given his fall yesterday, it is not certain if he took any of his BP medications. Seen in ED room and the patient himself if oriented to person and place, but not time. He is very agitated saying he wants to get up out of the bed. Does keep pointing to his right wrist saying it hurts. Interval History Patient's mental status has improved. Dr. Barnes has seen the patient and PD catheter will be removed later today. Review of Systems General Constitutional: Fatigue Musculoskeletal MS Remarks R wrist pain Objective Data Data 07/04/16 07/05/16 19:00 07:00 Intake Total 1004 ml 1583 ml Output Total 125 ml 350 ml Balance 879 ml 1233 ml Intake Oral 180 ml 240 ml IV Total 824 ml 1343 ml Output Urine Total 125 ml 350 ml Vital Signs Date Time Temp Pulse Resp B/P Pulse Ox O2 Delivery O2 Flow Rate FiO2 07/05/16 10:00 86 07/05/16 08:00 80 07/05/16 08:00 97.9 80 22 167/77 93 07/05/16 06:00 76 07/05/16 04:00 98.5 79 22 158/72 95 07/05/16 04:00 79 07/05/16 02:00 80 07/05/16 00:00 87 07/05/16 00:00 98.8 87 24 155/70 93 07/04/16 22:00 76 07/04/16 20:00 70 07/04/16 20:00 98.5 70 20 154/71 96 07/04/16 19:40 96 Nasal Cannula 2.00 07/04/16 18:00 89 07/04/16 16:00 90 07/04/16 16:00 100 Nasal Cannula 2.00 07/04/16 16:00 98.6 90 29 160/71 100 07/04/16 14:00 75 07/04/16 12:00 98.3 78 19 146/66 100 07/04/16 12:00 100 Nasal Cannula 4.00 07/04/16 12:00 78 -: 07/04/16 0555 07/05/16 0645 Tubes & Lines: Perma-Cath, Tenckhoff Catheter Medication Review Inpatient Medications Cefepime HCl/ Sodium Chloride (Maxipime Inj/NS Inj) 100 ml @ 200 mls/hr Q24H IV Last administered on 07/05/16 04:23; Start 06/30/16 at 06:00 Ceftriaxone Sodium/Sodium Chloride (Rocephin Inj/NS Inj) 100 ml @ 200 mls/hr Q24H IV ; Start 06/29/16 at 17:00; Stop 06/29/16 at 17:00; Status DC Chlorhexidine Gluconate (Chlorhexidine 2% Cloth) 3 pack UNSCH PRN TOP HYGIENIC CARE; Start 06/29/16 at 17:45; Stop 07/04/16 at 17:41; Status DC Clonidine (Catapres) 0.1 mg Q4H PRN PO prn sbp > 170; Start 07/04/16 at 09:45 Dexmedetomidine HCl (Precedex Inj) 50 ml @ 0 mls/hr TITRATE IV Last administered on 06/30/16 03:01; Start 06/29/16 at 16:00; Stop 06/30/16 at 09:53 ; Status DC Dextrose (D50w (Syr) Inj) 50 ml ONCE ONCE IV Last administered on 06/29/16 10 :06; Start 06/29/16 at 10:00; Stop 06/29/16 at 10:01; Status DC Dextrose (D50w (Vial) Inj) 25 ml UNSCH PRN IV PUSH HYPOGLYCEMIA - SEE COMMENTS ; Start 06/30/16 at 11:15 Diphenhydramine HCl (Benadryl) 25 mg UNSCH PRN PO for hives/itching/anaphylaxis ; Start 06/29/16 at 10:15 Finasteride (Proscar) 5 mg DAILY PO Last administered on 07/05/16 08:46; Start 06/30/16 at 09:00 Fluticasone Propionate (Flonase Mario Spr) 1 spray DAILY EACH NARE Last administered on 07/05/16 09:22; Start 06/30/16 at 09:00 Furosemide (Lasix Inj) 40 mg BID IV Last administered on 07/01/16 22:07; Start 06/29/16 at 23:00; Stop 07/04/16 at 09:36; Status DC Furosemide (Lasix) 40 mg BID PO ; Start 06/29/16 at 21:00; Stop 06/29/16 at 22: 29; Status DC Gelatin 1 foam 1 foam UNSCH PRN TOP SEE LABEL COMMENTS; Start 06/29/16 at 10:15 Gentamicin Sulfate (Gentamicin (Dialysis) Inj) 20 mg UNSCH PRN IV WITH DIALYSIS Last administered on 07/03/16 08:32; Start 06/29/16 at 10:15 Glucagon (Glucagon Inj) 1 mg UNSCH PRN OTHER HYPOGLYCEMIA-SEE COMMENTS; Start 06/30/16 at 11:15 Haloperidol Lactate (Haldol Inj) 2 mg NOW ONCE IV PUSH Last administered on 17:07; Start 06/30/16 at 17:00; Stop 06/30/16 at 17:01; Status DC Haloperidol Lactate 2 mg 2 mg Q4H PRN IV agitation; Start 06/30/16 at 06:45; Stop 06/30/16 at 15:53; Status DC Heparin Sodium (Porcine) (Heparin Inj) UNSCH PRN .XX WITH DIALYSIS Last administered on 07/03/16 08:32; Start 06/29/16 at 10:15 Heparin Sodium (Porcine) 8000 units 8,000 units UNSCH PRN IVF WITH DIALYSIS; Start 06/29/16 at 10:15 Hydralazine HCl (Apresoline Inj) 20 mg ONCE ONCE IV PUSH Last administered on 06/29/16 09:19; Start 06/29/16 at 09:15; Stop 06/29/16 at 09:26; Status DC Hydralazine HCl (Apresoline) 50 mg Q8H PO Last administered on 07/05/16 08:46 ; Start 07/01/16 at 17:00 Hydralazine HCl 10 mg 10 mg Q3HR PRN IV PUSH sbp > 200 Last administered on 16:41; Start 06/29/16 at 16:00 Insulin Aspart (NovoLOG SUPPLEMENTAL SCALE) 1 Q4H SQ Last administered on 20:46; Start 06/30/16 at 12:00 Insulin Human Regular (NovoLIN R INJ) 10 units ONCE ONCE IVP Last administered on 06/29/16 10:06; Start 06/29/16 at 10:00; Stop 06/29/16 at 10:01 ; Status DC IV Flush (NS Flush) 2 ml UNSCH PRN IVF FLUSH AFTER USING IV ACCESS; Start 06/29 at 07:45; Stop 06/29/16 at 11:19; Status DC Labetalol HCl (Trandate Inj) 20 mg Q4H PRN IV PUSH SYS BP GREATER THAN 170 MMHG Last administered on 07/02/16 14:44; Start 06/29/16 at 18:00 Lanthanum Carbonate (Fosrenol Chew) 1,000 mg TID CHEW Last administered on 07/04 17:07; Start 07/04/16 at 18:00 Lisinopril (Prinivil) 20 mg ONCE ONCE PO Last administered on 07/04/16 10:00 ; Start 07/04/16 at 10:00; Stop 07/04/16 at 10:01; Status DC Loratadine (Claritin) 10 mg DAILY PO Last administered on 07/05/16 08:46; Start 06/30/16 at 09:00 Lorazepam (Ativan Inj) 0.5 mg Q4H PRN IV PUSH agitation Last administered on 04:41; Start 06/30/16 at 16:00 Mannitol (Mannitol Inj) 12.5 gm UNSCH PRN IV WITH DIALYSIS; Start 06/29/16 at 10:15 Miscellaneous Information Patient in critical care unit? Ass... Q361D XX Last administered on 06/29/16 17:45; Start 06/29/16 at 17:45 Morphine Sulfate 2 mg 2 mg Q3H PRN IV PUSH PAIN 4-10, IF NOT TAKING PO; Start 07/01/16 at 17:30 Nicardipine HCl 25 mg/Sodium Chloride 260 ml @ 0 mls/hr TITRATE IV Last administered on 07/02/16 18:10; Start 07/01/16 at 17:30; Stop 07/02/16 at 19:49 ; Status DC Nicardipine HCl/ Sodium Chloride (Cardene Inj/NS 250 ml Inj) 260 ml @ 0 mls/hr TITRATE IV Last administered on 07/05/16 11:12; Start 07/02/16 at 20:00 Nitroglycerin (Nitrostat Sl) 0.4 mg UNSCH PRN SL CHEST PAIN; Start 06/29/16 at 10:15 Ondansetron HCl (Zofran Inj) 4 mg UNSCH PRN IV WITH DIALYSIS Last administered on 06/30/16 09:15; Start 06/29/16 at 10:15 Oxycodone/ Acetaminophen (Percocet 5-325 Mg) 1 tab Q6H PRN PO PAIN 3-10 Last administered on 07/04/16 11:25; Start 06/29/16 at 10:15 Patient Medication Teaching 1 1 ONCE ONCE XX Last administered on 06/30/16 16 :00; Start 06/30/16 at 16:00; Stop 06/30/16 at 16:01; Status DC Pharmacy Profile Note (Coumadin Consult Pharmacy) 0 ml @ 0 mls/hr UNSCH OTHER ; Start 06/30/16 at 10:00 Quetiapine Fumarate (SEROquel) 25 mg BID PO Last administered on 07/05/16 08: 46; Start 07/01/16 at 09:00 Sodium Bicarbonate (Sodium Bicarbonate 8.4% Inj) 50 meq ONCE ONCE IV PUSH Last administered on 06/29/16 10:06; Start 06/29/16 at 10:00; Stop 06/29/16 at 10:01; Status DC Sodium Chloride 1,000 ml @ 50 mls/hr Q20H IV Last administered on 07/04/16 20 :47; Start 07/02/16 at 09:30 Sodium Chloride (NS 1000 ml Inj) 1,000 ml @ 0 mls/hr Q0M PRN IV WITH DIALYSIS; Start 06/29/16 at 10:03 Sodium Chloride (NS Flush) 5 ml UNSCH PRN IV FLUSH WITH DIALYSIS; Start at 10:15 Tamsulosin HCl (Flomax) 0.4 mg DAILY PO Last administered on 07/05/16 08:46; Start 06/30/16 at 09:00 Thiamine HCl 100 mg/Sodium Chloride 101 ml @ 101 mls/hr DAILY IV Last administered on 07/05/16 08:45; Start 07/02/16 at 10:00 Vancomycin HCl 1000 mg/Sodium Chloride 250 ml @ 250 mls/hr WITH DIALYSIS IV Last administered on 07/03/16 08:31; Start 06/29/16 at 14:45 Vancomycin HCl/ Sodium Chloride (Vancomycin Inj/ NS 250 ml Inj) 250 ml @ 250 mls/hr ONCE ONCE IV Last administered on 06/29/16 10:34; Start 06/29/16 at 10 :15; Stop 06/29/16 at 11:14; Status DC Warfarin Sodium (Coumadin) 5 mg DAILY@16 PO ; Start 07/05/16 at 16:00 Physical Exam General Appearance: No Acute Distress, Comfortable, Malnourished Eyes Eye Exam: Sclera White Neck Neck Exam: Neck Supple Pulmonary Resp Exam: Clear Bilaterally, Breath Sounds Equal Cardiology CV Exam: Irregular Gastrointestinal/Abdomen GI Exam: Soft, Non-Tender Integumentary Skin Exam: Dry Extremeties Extremities Exam: No Edema Neurologic Neuro Exam: Alert, Awake, Obtunded Psychiatric Psych Exam: Appropriate Responses Assessment/Plan Problem List: (1) ESRD (end stage renal disease) on dialysis Plan: Continue hemodialysis Tuesday and Saturdays. Dr. Barnes also consult it to determine if we can place an AV dialysis shunt. Medications should be adjusted for ESRD. Avoid gadolinium. (2) Uremic encephalopathy Plan: Is improved. Unsure if the encephalopathy was related to uncontrolled hypertension and or apparent peritonitis Etiology of altered mental status uncertain. Aluminum level pending. Appreciate neurology input (3) HTN (hypertension) Plan: On Cardene drip. Add Procardia XL 30 mg daily. (4) Hypercalcemia Plan: Improved. No evidence of myeloma. PTH related protein not elevated. Intact PTH level elevated but secondary hyperparathyroidism of renal disease is a consideration. Difficult to say if the patient may have a primary hyperparathyroidism or tertiary hyperparathyroidism in the setting of his end- stage renal disease. We'll consider adding Sensipar. (5) Peritonitis due to infected peritoneal dialysis catheter Plan: Patient was not on peritoneal dialysis prior to admission as he was previously switched from peritoneal to hemodialysis secondary to ultrafiltration failure on peritoneal dialysis with fluid overload. I do not believe despite the patient's previous hope that we can return to peritoneal dialysis given previous failure of same. I discussed this with him and he is now agreeable to have the peritoneal dialysis catheter removed which I believe is prudent at this point in time given apparent infection. Continue vancomycin. We'll consult Dr. Barnes for removal of peritoneal dialysis catheter and evaluation for AV dialysis fistula. Blood cultures are negative. Continue to use current PermCath. Problem Qualifiers (1) HTN (hypertension): Qualified Code: I10 - Essential hypertension Danita Maria MD Jul 05, 2016 11:37
[2016-07-05] MEDS ORDERED: PROPOFOL 200 MG/20 ML AMP IV ONE (12:00)
[2016-07-05] MEDS ORDERED: BUPIVACAINE/EPINEPHRINE 0.25% PF 10 ML VIAL ONE (12:38)
[2016-07-05] MEDS ORDERED: BUPIVACAINE/EPINEPHRINE 0.5% PF 30 ML VIAL ONE (12:41)
[2016-07-05] MEDS: WARFARIN SOD 5 MG TAB PO SCH ×2 (16:00→18:12)
--- NOTE | 2016-07-05 16:22 | HHI.PR ---
Subjective Remarks No new complaints. Objective Vitals Vital Signs Date Time Temp Pulse Resp B/P Pulse Ox O2 Delivery O2 Flow Rate FiO2 07/05/16 15:20 97.7 76 18 167/70 100 07/05/16 15:06 100 Nasal Cannula 2 07/05/16 12:00 98.0 77 16 164/76 99 07/05/16 12:00 77 07/05/16 10:00 86 07/05/16 08:00 80 07/05/16 08:00 97.9 80 22 167/77 93 07/05/16 06:00 76 07/05/16 04:00 98.5 79 22 158/72 95 07/05/16 04:00 79 07/05/16 02:00 80 07/05/16 00:00 87 07/05/16 00:00 98.8 87 24 155/70 93 07/04/16 22:00 76 07/04/16 20:00 70 07/04/16 20:00 98.5 70 20 154/71 96 07/04/16 19:40 96 Nasal Cannula 2.00 07/04/16 18:00 89 07/04/16 07/04/16 07/05/16 15:00 23:00 07:00 Intake Total 1004 ml 801 ml 782 ml Output Total 125 ml 125 ml 225 ml Balance 879 ml 676 ml 557 ml Intake Oral 180 ml 120 ml 120 ml IV Total 824 ml 681 ml 662 ml Output Urine Total 125 ml 125 ml 225 ml Result Diagram: 07/04/16 0555 07/05/16 0645 Imaging Last Impressions Brain MRI 07/01/16 0000 Signed Impressions: Service Date/Time: June 11:24 - CONCLUSION: 1. No acute intracranial abnormality. 2. Mucus retention cysts within the left maxillary sinus. Winston Grande MD Abdomen Ultrasound 07/01/16 0000 Signed Impressions: Service Date/Time: June 08:40 - CONCLUSION: 1. Increased cortical echogenicity of the kidneys bilaterally. Kidneys are also somewhat diminutive in size. Findings are concerning for chronic medical renal disease. 2. Benign appearing 1.5-1.8 cm cortical cyst in the midpole of the right kidney. 3. 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 Addy Almazan MD Chest X-Ray 06/30/16 0000 Signed Impressions: Service Date/Time: Thursday, June 30, 2016 07:11 - CONCLUSION: 1. Cardiomegaly. 2. No acute focal pulmonary infiltrate or pulmonary vascular congestion. Winston Grande MD Head CT 06/29/16 0733 Signed Impressions: Service Date/Time: Wednesday, June 29, 2016 08:30 - CONCLUSION: 1. No acute intracranial abnormality. 2. Scattered mucous retention cysts within the left maxillary sinus. Winston Grande MD Wrist X-Ray 06/29/16 0000 Signed Impressions: Service Date/Time: Wednesday, June 29, 2016 08:24 - CONCLUSION: 1. Bony remodeling in the distal radial diaphysis with a regional sideplate and osseous screws characteristic for an old healed fracture injury. 2. Accessory ossification versus old avulsion injury of the ulnar styloid. 3. No acute fracture. 4. Osteoarthritis of the first CMC joint. Addy Almazan MD Objective Remarks GENERAL: This is a well-nourished, well-developed patient, in no apparent distress. CARDIOVASCULAR: Regular rate and rhythm without murmurs, gallops, or rubs. RESPIRATORY: Clear to auscultation. Breath sounds equal bilaterally. No wheezes , rales, or rhonchi. GASTROINTESTINAL: Abdomen soft, non-tender, nondistended. Normal active bowel sounds MUSCULOSKELETAL: Extremities without clubbing, cyanosis, or edema. NEURO: Alert & Oriented x4 to person, place, time, situation. Moves all ext x4 A/P Problem List: (1) Mental status change Status: Acute Plan: Pt has ESRD converted from PD to HD in April for ineffective fluid removal. He presents with severe htn and metabolic encephalopathy. CT imaging in ED negative for ICH/CVA. mri neg for cva exclude underlying sepsis. peritoneal fluid only 1cc removed and grew staph epi Pt more oriented today and says he was just feeling bad/had diarrhea x 1 and fell down. Pt says instructed him to stop home meds and his bp elevated...then confusion. 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 on cardene. titrate off and titrate up po meds. once off cardene then transfer to med floor. ivf HD 3x weekly. last HD 07/03 cont broad abx coverage. dvt prophylaxis 07/05/16 - pt underwent removal of PD catheter today with Dr. Barnes (2) ESRD (end stage renal disease) on dialysis Status: Chronic Plan: nephrology following (3) HTN (hypertension) Status: Chronic Plan: - apresoline - lisinopril (4) BPH (benign prostatic hyperplasia) Status: Chronic Plan: home meds (5) Diabetes Status: Chronic Plan: ssi. (6) Atrial fibrillation Status: Chronic Plan: home meds as tolerated. Problem Qualifiers (1) HTN (hypertension): Qualified Code: I10 - Essential hypertension Vasile Bobby DO Jul 05, 2016 16:22
[2016-07-05] MEDS ORDERED: MIDAZOLAM HCL 2 MG/2 ML VIAL ONE (16:49)
[2016-07-05] MEDS ORDERED: DO NOT ADM ANY ANTICOAGULANT DRUGS XX PRN (17:00)
[2016-07-05] MEDS: SODIUM CHLOR 0.9% 1000 ML INJ 1,000 ML IV SCH (18:55)
[2016-07-05] MEDS ORDERED: amLODIPine BESYLATE 5 MG TAB PO SCH (20:00)
[2016-07-05] MEDS: ATORVASTATIN 10 MG TAB PO SCH (20:31)
[2016-07-06] VITALS (13 sets, daily range): BP systolic 150–179; BP diastolic 67–79; PULSE 70–90; RESP 17–29; TEMP 97.7–99.2; O2SAT 93–99
[2016-07-06] MEDS: hydrALAZINE HCL 25 MG TAB PO SCH ×3 (00:36→17:20)
[2016-07-06] MEDS: INSULIN ASPART SUPPLEMENTAL SCALE SQ SCH ×5 (04:00→16:00)
[2016-07-06] MEDS: CEFEPIME INJ 1,000 MG in SODIUM CHLORIDE 0.9% INJ 100 ML IV SCH (05:08)
[2016-07-06 05:47] LABS: AUTOMATED NEUTROPHIL # 8.6 TH/MM3 (1.8-7.7); BASOPHIL # 0.1 TH/MM3 (0-0.2); BASOPHIL % 0.8 % (0.0-2.0); EOSINOPHIL # 0.3 TH/MM3 (0-0.4); EOSINOPHIL % 3.2 % (0.0-4.0); HEMATOCRIT 26.1 % (39.0-51.0); HEMO FLAGS DIFF FINAL; INTERNATIONAL NORMALIZED RATIO 2.2 RATIO; LYMPH % 7.2 % (9.0-44.0); LYMPHOCYTE # 0.8 TH/MM3 (1.0-4.8); MEAN CELL VOLUME 97.3 FL (80.0-100.0); MEAN CORPUSCULAR HEMOGLOBIN 32.8 PG (27.0-34.0); MEAN CORPUSCULAR HGB CONC 33.7 % (32.0-36.0); NEUT % 79.8 % (16.0-70.0); PLATELET COUNT 325 TH/MM3 (150-450); PROTHROMBIN TIME - PATIENT 24.6 SEC (9.8-11.6); RED BLOOD COUNT 2.68 MIL/MM3 (4.50-5.90); RED CELL DISTRIBUTION WIDTH 15.3 % (11.6-17.2); WHITE BLOOD COUNT 10.8 TH/MM3 (4.0-11.0)
[2016-07-06 06:04] LABS: BICARBONATE 22.6 MEQ/L (21.0-32.0); CALCIUM-PROTEIN CORRECTED 10.4 MG/DL (8.5-10.1); POTASSIUM 3.9 MEQ/L (3.5-5.1)
[2016-07-06 06:07] LABS: ALKALINE PHOSPHATASE 114 U/L (45-117); ALT (GPT) 22 U/L (12-78); ANION GAP 16 MEQ/L (5-15); AST (GOT) 21 U/L (15-37); BICARBONATE 21.4 MEQ/L (21.0-32.0); BLOOD UREA NITROGEN 65 MG/DL (7-18); CHLORIDE 106 MEQ/L (98-107); GLOMERULAR FILTRATION RATE 10 ML/MIN (>89); POTASSIUM 3.9 MEQ/L (3.5-5.1); SODIUM (NA) 143 MEQ/L (136-145); TOTAL BILIRUBIN ADULT 0.8 MG/DL (0.2-1.0)
[2016-07-06] MEDS: niCARdipine INJ 25 MG in SODIUM CHLOR 0.9% 250 ML INJ 250 ML IV SCH ×3 (06:33→21:41)
--- NOTE | 2016-07-06 08:34 | HHI.PR ---
Review/Management Diagnosis/Plan: (1) Encephalopathy, metabolic Plan: etiology: infection vs severe htn apparently did not receive bp meds at home possibly related to peritoneal infection recs very alert this am; neuro stable bp control follow exam (2) Hypertensive encephalopathy (3) Chronic renal failure (4) HTN (hypertension) Subjective Subjective Comments No acute events reported No headache No chest pain No dyspnea Active Medications Current Medications Medications (Trade) Dose Ordered Sig/Terra Route Start Time Stop Time Status Last Admin (NS 1000 ml Inj) 1,000 ml @ 0 mls/hr Q0M PRN IV 06/29/16 10:03 07/03/16 08:31 Heparin Sodium (Porcine) 8000 units 8,000 units UNSCH PRN IVF 06/29/16 10:15 Sodium Chloride 1,000 ml @ 200 mls/hr Q5H PRN IV 06/29/16 10:03 (NS 1000 ml Inj) 1,000 ml @ 0 mls/hr Q0M PRN IV 06/29/16 10:03 (Mannitol Inj) 12.5 gm UNSCH PRN IV 06/29/16 10:15 (Albumin 25% Inj) 25 gm UNSCH PRN IV 06/29/16 10:15 (NS Flush) 5 ml UNSCH PRN IV FLUSH 06/29/16 10:15 (Heparin Inj) UNSCH PRN .XX 06/29/16 10:15 07/03/16 08:32 (Gentamicin (Dialysis) Inj) 20 mg UNSCH PRN IV 06/29/16 10:15 07/03/16 08:32 (Zofran Inj) 4 mg UNSCH PRN IV 06/29/16 10:15 06/30/16 09:15 (Tylenol) 650 mg UNSCH PRN PO 06/29/16 10:15 (Benadryl) 25 mg UNSCH PRN PO 06/29/16 10:15 (Nitrostat Sl) 0.4 mg UNSCH PRN SL 06/29/16 10:15 (Gelfoam 12 Mm/7 Mm Top) 1 foam UNSCH PRN TOP 06/29/16 10:15 (Lipitor) 10 mg HS PO 06/29/16 21:00 07/04/16 20:46 (Proscar) 5 mg DAILY PO 06/30/16 09:00 07/05/16 08:46 (Flonase Mario Spr) 1 spray DAILY EACH NARE 06/30/16 09:00 07/05/16 09:22 (Claritin) 10 mg DAILY PO 06/30/16 09:00 07/05/16 08:46 (Percocet 5-325 Mg) 1 tab Q6H PRN PO 06/29/16 10:15 07/04/16 11:25 (Flomax) 0.4 mg DAILY PO 06/30/16 09:00 07/05/16 08:46 (Apresoline Inj) 10 mg Q3HR PRN IV PUSH 06/29/16 16:00 07/02/16 16:41 Miscellaneous Information Patient in critical care unit? Ass... Q361D XX 06/29/16 17:45 06/29/16 17:45 Labetalol HCl 20 mg 20 mg Q4H PRN IV PUSH 06/29/16 18:00 07/02/16 14:44 (Coumadin Consult Pharmacy) 0 ml @ 0 mls/hr UNSCH OTHER 06/30/16 10:00 (NovoLOG SUPPLEMENTAL SCALE) 1 Q4H SQ 06/30/16 12:00 07/04/16 20:46 (D50w (Vial) Inj) 25 ml UNSCH PRN IV PUSH 06/30/16 11:15 Glucagon 1 mg 1 mg UNSCH PRN OTHER 06/30/16 11:15 (Maxipime Inj/NS Inj) 100 ml @ 200 mls/hr Q24H IV 06/30/16 06:00 07/06/16 05:08 (Haldol Inj) 1 mg Q4H PRN IV 06/30/16 18:45 06/30/16 23:33 (Ativan Inj) 0.5 mg Q4H PRN IV PUSH 06/30/16 16:00 07/02/16 04:41 (SEROquel) 25 mg BID PO 07/01/16 09:00 07/05/16 08:46 (Apresoline) 50 mg Q8H PO 07/01/16 17:00 07/06/16 00:36 Morphine Sulfate 2 mg 2 mg Q3H PRN IV PUSH 07/01/16 17:30 Sodium Chloride 1,000 ml @ 50 mls/hr Q20H IV 07/02/16 09:30 07/05/16 18:55 Thiamine HCl 100 mg/Sodium Chloride 101 ml @ 101 mls/hr DAILY IV 07/02/16 10:00 07/05/16 08:45 (Cardene Inj/NS 250 ml Inj) 260 ml @ 0 mls/hr TITRATE IV 07/02/16 20:00 07/06/16 06:33 (Prinivil) 20 mg Q12HR PO 07/04/16 21:00 07/05/16 08:46 (Catapres) 0.1 mg Q4H PRN PO 07/04/16 09:45 (Fosrenol Chew) 1,000 mg TID CHEW 07/04/16 18:00 07/04/16 17:07 (Coumadin) 5 mg DAILY@16 PO 07/05/16 16:00 (Procardia Xl) 60 mg DAILY PO 07/06/16 09:00 Miscellaneous Information ALL NURSING DEPARTME... UNSCH PRN XX 07/05/16 17:00 07/06/16 16:59 Allergies Allergies Coded Allergies No Known Allergies (Verified06/15/16) Review of Systems All other ROS: ROS reviewed as documented in chart Exam I&O / VS 07/05/16 07/05/16 07/06/16 15:00 23:00 07:00 Intake Total 772 ml 744 ml 738 ml Output Total 180 ml 100 ml 150 ml Balance 592 ml 644 ml 588 ml Intake Oral 0 ml 90 ml IV Total 772 ml 594 ml 648 ml Other 150 ml Output Urine Total 180 ml 100 ml 150 ml Stool Total 0 ml Estimated Blood Loss 0 ml Other 0 ml # Bowel Movements 0 0 0 Vital Signs Date Time Temp Pulse Resp B/P Pulse Ox O2 Delivery O2 Flow Rate FiO2 07/06/16 06:00 75 07/06/16 04:00 90 07/06/16 04:00 97.7 90 23 161/74 99 07/06/16 02:00 70 07/06/16 00:00 97.9 83 24 179/79 99 07/06/16 00:00 83 07/05/16 22:00 78 07/05/16 20:00 76 07/05/16 20:00 97.6 76 16 153/71 100 07/05/16 19:33 100 Nasal Cannula 3.00 07/05/16 18:00 63 07/05/16 17:10 76 16 155/73 99 Nasal Cannula 3 07/05/16 17:00 77 16 154/75 97 Nasal Cannula 3 07/05/16 16:45 74 16 150/76 97 Nasal Cannula 3 07/05/16 16:37 98.2 77 16 147/73 97 Nasal Cannula 3 07/05/16 15:20 97.7 76 18 167/70 100 07/05/16 15:06 100 Nasal Cannula 2 07/05/16 14:00 78 07/05/16 12:00 98.0 77 16 164/76 99 07/05/16 12:00 77 07/05/16 10:00 86 Exam Comments alert,ox 3. clear speech, appropriate, follows simple request, ou 2mm sluggish , face sym, nicholas to tactile, atrophic legs, msr depressed, no clonus, planterflexor Objective Micro and Labs Laboratory Tests Test 07/05/16 07/06/16 15:46 04:43 Blood Type O POSITIVE Antibody Screen NEGATIVE White Blood Count 10.8 Red Blood Count 2.68 Hemoglobin 8.8 Hematocrit 26.1 Mean Corpuscular Volume 97.3 Mean Corpuscular Hemoglobin 32.8 Mean Corpuscular Hemoglobin 33.7 Concent Red Cell Distribution Width 15.3 Platelet Count 325 Mean Platelet Volume 9.0 Neutrophils (%) (Auto) 79.8 Lymphocytes (%) (Auto) 7.2 Monocytes (%) (Auto) 9.0 Eosinophils (%) (Auto) 3.2 Basophils (%) (Auto) 0.8 Neutrophils # (Auto) 8.6 Lymphocytes # (Auto) 0.8 Monocytes # (Auto) 1.0 Eosinophils # (Auto) 0.3 Basophils # (Auto) 0.1 CBC Comment DIFF FINAL Differential Comment Prothrombin Time 24.6 Prothromb Time International 2.2 Ratio Sodium Level 143 Potassium Level 3.9 Chloride Level 106 Carbon Dioxide Level 21.4 Anion Gap 16 Blood Urea Nitrogen 65 Creatinine 5.52 Estimat Glomerular Filtration 10 Rate Random Glucose 100 Calcium Level 10.3 Protein Corrected Calcium 10.4 Phosphorus Level 4.9 Total Bilirubin 0.8 Aspartate Amino Transf 21 (AST/SGOT) Alanine Aminotransferase 22 (ALT/SGPT) Alkaline Phosphatase 114 Total Protein 6.8 Albumin 3.0 Date/Time Procedure Status Source Growth 07/05/16 16:25 Gram Stain Received Wound Abdomen Pending 07/05/16 16:25 Wound Culture Received Wound Abdomen Pending 07/05/16 16:25 Fungal Smear Received Wound Abdomen Pending 07/05/16 16:25 Fungal Culture Received Wound Abdomen Pending 07/05/16 16:25 Acid Fast Stain Received Wound Abdomen Pending 07/05/16 16:25 Mycobacterial Culture Received Wound Abdomen Pending 07/01/16 19:00 Gram Stain - Final Complete Fluid Peritoneal Fluid 07/01/16 19:00 Body Fluid Culture - Final Complete Staphylococcus Epidermidis Problem Qualifiers (1) Chronic renal failure: Qualified Code: N18.5 - Chronic renal failure, stage 5 (2) HTN (hypertension): Qualified Code: I10 - Essential hypertension Ashu Shaikh MD Jul 06, 2016 08:34
[2016-07-06] MEDS: LANTHANUM CARBONATE 500 MG CHEWABLE TABLET CHEW SCH ×3 (09:00→17:21)
[2016-07-06] MEDS ORDERED: NIFEdipine 60 MG SUSTAINED RELEASE TAB PO SCH (09:00)
[2016-07-06] MEDS: THIAMINE INJ 100 MG in SODIUM CHLORIDE 0.9% INJ 100 ML IV SCH (09:47)
[2016-07-06] MEDS: FLUTICASONE PROPIONATE 50 MCG/ACT 16 GM NASAL SPRAY EACH NARE SCH (09:47)
[2016-07-06] MEDS: TAMSULOSIN HCL 0.4 MG CAP PO SCH (09:48)
[2016-07-06] MEDS: LISINOPRIL 20 MG TAB PO SCH ×2 (09:48→21:41)
[2016-07-06] MEDS: LORATADINE 10 MG TAB PO SCH (09:48)
[2016-07-06] MEDS: FINASTERIDE 5 MG TAB PO SCH (09:48)
[2016-07-06] MEDS: QUEtiapine FUMARATE 25 MG TAB PO SCH ×2 (09:48→21:40)
--- NOTE | 2016-07-06 11:23 | HHI.PR ---
Subjective Remarks Pt more alert today. Pt's is concerned about bruising at pt's right forearm. Objective Vitals Vital Signs Date Time Temp Pulse Resp B/P Pulse Ox O2 Delivery O2 Flow Rate FiO2 07/06/16 06:00 75 07/06/16 04:00 90 07/06/16 04:00 97.7 90 23 161/74 99 07/06/16 02:00 70 07/06/16 00:00 97.9 83 24 179/79 99 07/06/16 00:00 83 07/05/16 22:00 78 07/05/16 20:00 76 07/05/16 20:00 97.6 76 16 153/71 100 07/05/16 19:33 100 Nasal Cannula 3.00 07/05/16 18:00 63 07/05/16 17:10 76 16 155/73 99 Nasal Cannula 3 07/05/16 17:00 77 16 154/75 97 Nasal Cannula 3 07/05/16 16:45 74 16 150/76 97 Nasal Cannula 3 07/05/16 16:37 98.2 77 16 147/73 97 Nasal Cannula 3 07/05/16 15:20 97.7 76 18 167/70 100 07/05/16 15:06 100 Nasal Cannula 2 07/05/16 14:00 78 07/05/16 12:00 98.0 77 16 164/76 99 07/05/16 12:00 77 07/05/16 07/05/16 07/06/16 14:59 22:59 06:59 Intake Total 772 ml 744 ml 738 ml Output Total 180 ml 100 ml 150 ml Balance 592 ml 644 ml 588 ml Intake Oral 0 ml 90 ml IV Total 772 ml 594 ml 648 ml Other 150 ml Output Urine Total 180 ml 100 ml 150 ml Stool Total 0 ml Estimated Blood Loss 0 ml Other 0 ml # Bowel Movements 0 0 0 Result Diagram: 07/06/16 0443 07/06/163 Imaging Last Impressions Brain MRI 07/01/16 0000 Signed Impressions: Service Date/Time: June 11:24 - CONCLUSION: 1. No acute intracranial abnormality. 2. Mucus retention cysts within the left maxillary sinus. Winston Grande MD Abdomen Ultrasound 07/01/16 0000 Signed Impressions: Service Date/Time: June 08:40 - CONCLUSION: 1. Increased cortical echogenicity of the kidneys bilaterally. Kidneys are also somewhat diminutive in size. Findings are concerning for chronic medical renal disease. 2. Benign appearing 1.5-1.8 cm cortical cyst in the midpole of the right kidney. 3. 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 Addy Almazan MD Chest X-Ray 06/30/16 0000 Signed Impressions: Service Date/Time: Thursday, June 30, 2016 07:11 - CONCLUSION: 1. Cardiomegaly. 2. No acute focal pulmonary infiltrate or pulmonary vascular congestion. Winston Grande MD Head CT 06/29/16 0733 Signed Impressions: Service Date/Time: Wednesday, June 29, 2016 08:30 - CONCLUSION: 1. No acute intracranial abnormality. 2. Scattered mucous retention cysts within the left maxillary sinus. Winston Grande MD Wrist X-Ray 06/29/16 0000 Signed Impressions: Service Date/Time: Wednesday, June 29, 2016 08:24 - CONCLUSION: 1. Bony remodeling in the distal radial diaphysis with a regional sideplate and osseous screws characteristic for an old healed fracture injury. 2. Accessory ossification versus old avulsion injury of the ulnar styloid. 3. No acute fracture. 4. Osteoarthritis of the first CMC joint. Addy Almazan MD Objective Remarks GENERAL: This is a well-nourished, well-developed patient, in no apparent distress. CARDIOVASCULAR: Regular rate and rhythm without murmurs, gallops, or rubs. RESPIRATORY: Clear to auscultation. Breath sounds equal bilaterally. No wheezes , rales, or rhonchi. GASTROINTESTINAL: Abdomen soft, non-tender, nondistended. Normal active bowel sounds MUSCULOSKELETAL: Extremities without clubbing, cyanosis, or edema. NEURO: Alert & Oriented x3 but confused at times, M[place] Skin: large ecchymotic area at pt's right arm and elbow, but NOT tender on palpation A/P Problem List: (1) Mental status change Status: Acute Plan: - improving - comgmt with Neurology - Pt has ESRD converted from PD to HD in April for ineffective fluid removal. - Pt presented with severe htn and metabolic encephalopathy. - CT imaging in ED negative for ICH/CVA. mri neg for cva - exclude underlying sepsis. peritoneal fluid only 1cc removed and grew staph epi - Pt receiving Cefepime (07/01 - present) & vancomycin (06/29, 07/01, 07/03), consider deescalating antibiotics 07/07 - still requiring Cardene, will attempt to wean - PO Procardia xl, lisinopril, Aldactone - HD 3x/week, last HD 07/03. Pt to receive HD today (07/06/16) - Case discussed at length with pt and at the bedside. (2) ESRD (end stage renal disease) on dialysis Status: Chronic Plan: - comgmt with Nephrology - HD [facility] Thurs - PD Catheter removed by Dr. Barnes (07/05/16) (3) HTN (hypertension) Status: Chronic Plan: - apresoline - lisinopril - procardia XL - cardene gtt, will try to wean (4) BPH (benign prostatic hyperplasia) Status: Chronic Plan: - flomax, proscar (5) Atrial fibrillation Status: Chronic Plan: home meds as tolerated. Problem Qualifiers (1) HTN (hypertension): Qualified Code: I10 - Essential hypertension Vasiel Bobby DO Jul 06, 2016 11:23
--- NOTE | 2016-07-06 12:26 | HHI.NPPN ---
Subjective History of Present Illness The patient is a 75 yo [place] male who is known to our services for ESRD. According to reports from his , he was in his normal state of health all yesterday besides a fall from his wheelchair. This was not witnessed as she was at work, but he fell on R wrist. Was on the floor when she came home from work and it is not clear at the present how long he was on the ground. States this AM she woke him up for transportation to his HD treatment, and he was mentally altered. EMS was called for transport to [facility] for evaluation. Has has CT of head that was negative for stroke. BP quite elevated. Has been previously instructed to hold BP medications on HD days, but to take as scheduled on non-HD days, but given his fall yesterday, it is not certain if he took any of his BP medications. Seen in ED room and the patient himself if oriented to person and place, but not time. He is very agitated saying he wants to get up out of the bed. Does keep pointing to his right wrist saying it hurts. Interval History Patient appears to be confused today. Indicating that he is "security risk". Review of Systems General Constitutional: Fatigue Musculoskeletal MS Remarks R wrist pain Objective Data Data 07/05/16 07/06/16 19:00 07:00 Intake Total 922 ml 1332 ml Output Total 180 ml 250 ml Balance 742 ml 1082 ml Intake Oral 0 ml 90 ml IV Total 772 ml 1242 ml Other 150 ml Output Urine Total 180 ml 250 ml Stool Total 0 ml Estimated Blood Loss 0 ml Other 0 ml # Bowel Movements 0 0 Vital Signs Date Time Temp Pulse Resp B/P Pulse Ox O2 Delivery O2 Flow Rate FiO2 07/06/16 08:00 74 07/06/16 06:00 75 07/06/16 04:00 90 07/06/16 04:00 97.7 90 23 161/74 99 07/06/16 02:00 70 07/06/16 00:00 97.9 83 24 179/79 99 07/06/16 00:00 83 07/05/16 22:00 78 07/05/16 20:00 76 07/05/16 20:00 97.6 76 16 153/71 100 07/05/16 19:33 100 Nasal Cannula 3.00 07/05/16 18:00 63 07/05/16 17:10 76 16 155/73 99 Nasal Cannula 3 07/05/16 17:00 77 16 154/75 97 Nasal Cannula 3 07/05/16 16:45 74 16 150/76 97 Nasal Cannula 3 07/05/16 16:37 98.2 77 16 147/73 97 Nasal Cannula 3 07/05/16 15:20 97.7 76 18 167/70 100 07/05/16 15:06 100 Nasal Cannula 2 07/05/16 14:00 78 -: 07/06/16 0443 07/06/16 0443 Microbiology 07/05/16 Gram Stain - Final, Resulted 07/05/16 Wound Culture - Preliminary, Resulted NO GROWTH IN 24 HOURS. 07/05/16 Acid Fast Stain, Received Pending 07/05/16 Mycobacterial Culture, Received Pending 07/05/16 Fungal Smear - Final, Resulted 07/05/16 Fungal Culture, Resulted Pending Tubes & Lines: Perma-Cath, Tenckhoff Catheter Physical Exam General Appearance: No Acute Distress, Comfortable, Malnourished Eyes Eye Exam: Sclera White Neck Neck Exam: Neck Supple Pulmonary Resp Exam: Clear Bilaterally, Breath Sounds Equal Cardiology CV Exam: Irregular Gastrointestinal/Abdomen GI Exam: Soft, Non-Tender Integumentary Skin Exam: Dry Extremeties Extremities Exam: No Edema Neurologic Neuro Exam: Alert, Awake, Obtunded Psychiatric Psych Remarks Patient recognizes me however does not appear to be appropriate. Assessment/Plan Problem List: (1) ESRD (end stage renal disease) on dialysis Plan: Continue hemodialysis Tuesday and Saturdays. Dialysis will take place later today. Dr. Barnes also consult it to determine if we can place an AV dialysis shunt. Medications should be adjusted for ESRD. Avoid gadolinium. (2) HTN (hypertension) Plan: On Cardene drip. Add Procardia XL 30 mg daily. (3) Hypercalcemia Plan: Improved. No evidence of myeloma. PTH related protein not elevated. Intact PTH level elevated but secondary hyperparathyroidism of renal disease is a consideration. Difficult to say if the patient may have a primary hyperparathyroidism or tertiary hyperparathyroidism in the setting of his end- stage renal disease. We'll consider adding Sensipar if the calcium level worsens.. (4) Peritonitis due to infected peritoneal dialysis catheter Plan: Peritoneal dialysis catheter has been removed. Continue vancomycin for a total of 2 weeks. Can be continued as an outpatient post discharge. (5) Encephalopathy Plan: Etiology uncertain. Continue to monitor. Dialysis today. Problem Qualifiers (1) HTN (hypertension): Qualified Code: I10 - Essential hypertension Danita Maria MD Jul 06, 2016 12:26
[2016-07-06] MEDS: SODIUM CHLOR 0.9% 1000 ML INJ 1,000 ML IV PRN (12:43)
[2016-07-06] MEDS: VANCOMYCIN INJ 1,000 MG in SODIUM CHLOR 0.9% 250 ML INJ 250 ML IV SCH (12:44)
[2016-07-06] MEDS: EPOETIN ALFA 10,000 UNITS/ML VIAL IV SCH (12:45)
[2016-07-06] MEDS: GENTAMICIN SULFATE (DIALYSIS USE ONLY) 20 MG/2 ML VIAL IV PRN (12:45)
[2016-07-06] MEDS: HEPARIN SODIUM - IV 10,000 UNITS/10 ML VIAL PRN (12:45)
[2016-07-06] MEDS: SODIUM CHLOR 0.9% 1000 ML INJ 1,000 ML IV SCH (13:29)
[2016-07-06] MEDS: WARFARIN SOD 5 MG TAB PO SCH (17:20)
[2016-07-06] MEDS: NIFEdipine 60 MG SUSTAINED RELEASE TAB PO SCH (21:40)
[2016-07-06] MEDS: ATORVASTATIN 10 MG TAB PO SCH (21:41)
[2016-07-07] VITALS (16 sets, daily range): BP systolic 127–161; BP diastolic 60–73; PULSE 66–106; RESP 17–27; TEMP 98.1–98.9; O2SAT 93–100
[2016-07-07] MEDS: hydrALAZINE HCL 25 MG TAB PO SCH ×3 (01:00→16:57)
[2016-07-07] MEDS: MORPHINE SULFATE 4 MG/ML INJ IV PUSH PRN ×2 (04:33→16:57)
[2016-07-07] MEDS: CEFEPIME INJ 1,000 MG in SODIUM CHLORIDE 0.9% INJ 100 ML IV SCH (04:34)
[2016-07-07 05:09] LABS: INTERNATIONAL NORMALIZED RATIO 2.4 RATIO; PROTHROMBIN TIME - PATIENT 27.8 SEC (9.8-11.6)
[2016-07-07] MEDS: QUEtiapine FUMARATE 25 MG TAB PO SCH ×2 (08:25→20:48)
[2016-07-07] MEDS: LANTHANUM CARBONATE 500 MG CHEWABLE TABLET CHEW SCH ×3 (08:25→16:57)
[2016-07-07] MEDS: LORATADINE 10 MG TAB PO SCH (08:25)
[2016-07-07] MEDS: LISINOPRIL 20 MG TAB PO SCH ×2 (08:25→20:48)
[2016-07-07] MEDS: FINASTERIDE 5 MG TAB PO SCH (08:25)
[2016-07-07] MEDS: FLUTICASONE PROPIONATE 50 MCG/ACT 16 GM NASAL SPRAY EACH NARE SCH (08:25)
[2016-07-07] MEDS: TAMSULOSIN HCL 0.4 MG CAP PO SCH (08:25)
[2016-07-07] MEDS: NIFEdipine 60 MG SUSTAINED RELEASE TAB PO SCH ×2 (08:25→20:48)
[2016-07-07] MEDS: VITAMIN B CMPLX/VITC/FOLIC AC CAP PO SCH (08:25)
[2016-07-07] MEDS: SODIUM CHLOR 0.9% 1000 ML INJ 1,000 ML IV SCH (08:27)
--- NOTE | 2016-07-07 16:15 | HHI.PR ---
Subjective Remarks No new complaints. Objective Vitals Vital Signs Date Time Temp Pulse Resp B/P Pulse Ox O2 Delivery O2 Flow Rate FiO2 07/07/16 10:00 78 07/07/16 08:00 98.2 73 17 154/69 97 07/07/16 08:00 73 07/07/16 07:25 99 07/07/16 06:00 106 07/07/16 05:30 98.2 80 19 153/70 99 07/07/16 04:00 85 07/07/16 02:00 78 07/07/16 00:00 98.9 80 27 143/63 94 07/07/16 00:00 66 07/06/16 22:00 78 07/06/16 20:00 83 07/06/16 20:00 99.2 83 29 150/68 96 07/06/16 19:24 93 21 07/06/16 18:00 88 07/06/16 07/06/16 07/07/16 15:00 23:00 07:00 Intake Total 1486 ml 774 ml 413 ml Output Total 235 ml 3200 ml 150 ml Balance 1251 ml -2426 ml 263 ml Intake Oral 666 ml 60 ml 60 ml IV Total 820 ml 714 ml 353 ml Output Urine Total 235 ml 200 ml 150 ml Stool Total 0 ml Hemodialysis 3000 ml # Bowel Movements 0 Result Diagram: 07/06/16 0443 07/06/16 0443 Imaging Last Impressions Brain MRI 07/01/16 0000 Signed Impressions: Service Date/Time: June 11:24 - CONCLUSION: 1. No acute intracranial abnormality. 2. Mucus retention cysts within the left maxillary sinus. Winston Grande MD Abdomen Ultrasound 07/01/16 0000 Signed Impressions: Service Date/Time: June 08:40 - CONCLUSION: 1. Increased cortical echogenicity of the kidneys bilaterally. Kidneys are also somewhat diminutive in size. Findings are concerning for chronic medical renal disease. 2. Benign appearing 1.5-1.8 cm cortical cyst in the midpole of the right kidney. 3. 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 Addy Almazan MD Chest X-Ray 06/30/16 0000 Signed Impressions: Service Date/Time: Thursday, June 30, 2016 07:11 - CONCLUSION: 1. Cardiomegaly. 2. No acute focal pulmonary infiltrate or pulmonary vascular congestion. Winston Grande MD Head CT 06/29/16 0733 Signed Impressions: Service Date/Time: Wednesday, June 29, 2016 08:30 - CONCLUSION: 1. No acute intracranial abnormality. 2. Scattered mucous retention cysts within the left maxillary sinus. Winston Grande MD Wrist X-Ray 06/29/16 0000 Signed Impressions: Service Date/Time: Wednesday, June 29, 2016 08:24 - CONCLUSION: 1. Bony remodeling in the distal radial diaphysis with a regional sideplate and osseous screws characteristic for an old healed fracture injury. 2. Accessory ossification versus old avulsion injury of the ulnar styloid. 3. No acute fracture. 4. Osteoarthritis of the first CMC joint. Addy Almazan MD Objective Remarks GENERAL: This is a well-nourished, well-developed patient, in no apparent distress. CARDIOVASCULAR: Regular rate and rhythm without murmurs, gallops, or rubs. RESPIRATORY: Clear to auscultation. Breath sounds equal bilaterally. No wheezes , rales, or rhonchi. GASTROINTESTINAL: Abdomen soft, non-tender, nondistended. Normal active bowel sounds MUSCULOSKELETAL: Extremities without clubbing, cyanosis, or edema. NEURO: Alert & Oriented x3 but confused at times, [place] Skin: large ecchymotic area at pt's right arm and elbow, but NOT tender on palpation A/P Problem List: (1) Mental status change Status: Acute Plan: - improving - comgmt with Neurology - Pt has ESRD converted from PD to HD in April for ineffective fluid removal. - Pt presented with severe htn and metabolic encephalopathy. - CT imaging in ED negative for ICH/CVA. mri neg for cva - exclude underlying sepsis. peritoneal fluid only 1cc removed and grew staph epi - Pt receiving Cefepime (07/01 - 07/07) & vancomycin (06/29, 07/01, 07/03), consider deescalating antibiotics 07/07 - case d/w Dr. Maria (07/06/16) - off Cardene - PO Procardia xl, lisinopril, Aldactone - HD 3x/week, last HD 07/03. Pt to receive HD today (07/06/16) - transfer to general medical floor - anticipate discharge to SNF in 2-3 days - Case discussed at length with pt and at the bedside. (2) ESRD (end stage renal disease) on dialysis Status: Chronic Plan: - comgmt with Nephrology - HD [facility] Thurs - PD Catheter removed by Dr. Barnes (07/05/16) (3) HTN (hypertension) Status: Chronic Plan: - apresoline - lisinopril - procardia XL - cardene gtt, will try to wean (4) BPH (benign prostatic hyperplasia) Status: Chronic Plan: - flomax, proscar (5) Atrial fibrillation Status: Chronic Plan: home meds as tolerated. Problem Qualifiers (1) HTN (hypertension): Qualified Code: I10 - Essential hypertension Vasile Bobby DO Jul 07, 2016 16:15
[2016-07-07] MEDS: WARFARIN SOD 5 MG TAB PO SCH (16:57)
--- NOTE | 2016-07-07 18:11 | HHI.NPPN ---
Subjective History of Present Illness The patient is a 75 yo [place] male who is known to our services for ESRD. According to reports from his , he was in his normal state of health all yesterday besides a fall from his wheelchair. This was not witnessed as she was at work, but he fell on R wrist. Was on the floor when she came home from work and it is not clear at the present how long he was on the ground. States this AM she woke him up for transportation to his HD treatment, and he was mentally altered. EMS was called for transport to [facility] for evaluation. Has has CT of head that was negative for stroke. BP quite elevated. Has been previously instructed to hold BP medications on HD days, but to take as scheduled on non-HD days, but given his fall yesterday, it is not certain if he took any of his BP medications. Seen in ED room and the patient himself if oriented to person and place, but not time. He is very agitated saying he wants to get up out of the bed. Does keep pointing to his right wrist saying it hurts. Interval History Pt much more alert today. Sitting up in chair. Conversive. present in room. (Isis Herman) Review of Systems Musculoskeletal MS Remarks R wrist pain (Isis Herman) Objective Data Data 07/06/16 07/07/16 19:00 07:00 Intake Total 1486 ml 1187 ml Output Total 3235 ml 350 ml Balance -1749 ml 837 ml Intake Oral 666 ml 120 ml IV Total 820 ml 1067 ml Output Urine Total 235 ml 350 ml Stool Total 0 ml Hemodialysis 3000 ml # Bowel Movements 0 Vital Signs Date Time Temp Pulse Resp B/P Pulse Ox O2 Delivery O2 Flow Rate FiO2 07/07/16 16:00 68 07/07/16 16:00 98.2 68 24 127/60 97 07/07/16 14:00 79 07/07/16 12:00 98.3 73 26 128/61 93 07/07/16 12:00 73 07/07/16 10:00 78 07/07/16 08:00 98.2 73 17 154/69 97 07/07/16 08:00 73 07/07/16 07:25 99 07/07/16 06:00 106 07/07/16 05:30 98.2 80 19 153/70 99 07/07/16 04:00 85 07/07/16 02:00 78 07/07/16 00:00 98.9 80 27 143/63 94 07/07/16 00:00 66 07/06/16 22:00 78 07/06/16 20:00 83 07/06/16 20:00 99.2 83 29 150/68 96 07/06/16 19:24 93 21 (Isis Herman) -: 07/06/16 0443 07/06/16 0443 Tubes & Lines: Perma-Cath Medication Review Current Medications Medications (Trade) Dose Ordered Sig/Terra Route Start Time Stop Time Status Last Admin (NS 1000 ml Inj) 1,000 ml @ 0 mls/hr Q0M PRN IV 06/29/16 10:03 07/06/16 12:43 Heparin Sodium (Porcine) 8000 units 8,000 units UNSCH PRN IVF 06/29/16 10:15 Sodium Chloride 1,000 ml @ 200 mls/hr Q5H PRN IV 06/29/16 10:03 (NS 1000 ml Inj) 1,000 ml @ 0 mls/hr Q0M PRN IV 06/29/16 10:03 (Mannitol Inj) 12.5 gm UNSCH PRN IV 06/29/16 10:15 (Albumin 25% Inj) 25 gm UNSCH PRN IV 06/29/16 10:15 (NS Flush) 5 ml UNSCH PRN IV FLUSH 06/29/16 10:15 (Heparin Inj) UNSCH PRN .XX 06/29/16 10:15 07/06/16 12:45 (Gentamicin (Dialysis) Inj) 20 mg UNSCH PRN IV 06/29/16 10:15 07/06/16 12:45 (Zofran Inj) 4 mg UNSCH PRN IV 06/29/16 10:15 06/30/16 09:15 (Tylenol) 650 mg UNSCH PRN PO 06/29/16 10:15 (Benadryl) 25 mg UNSCH PRN PO 06/29/16 10:15 (Nitrostat Sl) 0.4 mg UNSCH PRN SL 06/29/16 10:15 (Gelfoam 12 Mm/7 Mm Top) 1 foam UNSCH PRN TOP 06/29/16 10:15 (Lipitor) 10 mg HS PO 06/29/16 21:00 07/06/16 21:41 (Proscar) 5 mg DAILY PO 06/30/16 09:00 07/07/16 08:25 (Flonase Mario Spr) 1 spray DAILY EACH NARE 06/30/16 09:00 07/07/16 08:25 (Claritin) 10 mg DAILY PO 06/30/16 09:00 07/07/16 08:25 (Percocet 5-325 Mg) 1 tab Q6H PRN PO 06/29/16 10:15 07/04/16 11:25 (Flomax) 0.4 mg DAILY PO 06/30/16 09:00 07/07/16 08:25 (Apresoline Inj) 10 mg Q3HR PRN IV PUSH 06/29/16 16:00 07/02/16 16:41 Miscellaneous Information Patient in critical care unit? Ass... Q361D XX 06/29/16 17:45 06/29/16 17:45 Labetalol HCl 20 mg 20 mg Q4H PRN IV PUSH 06/29/16 18:00 07/02/16 14:44 (Coumadin Consult Pharmacy) 0 ml @ 0 mls/hr UNSCH OTHER 06/30/16 10:00 (D50w (Vial) Inj) 25 ml UNSCH PRN IV PUSH 06/30/16 11:15 (Glucagon Inj) 1 mg UNSCH PRN OTHER 06/30/16 11:15 (Haldol Inj) 1 mg Q4H PRN IV 06/30/16 18:45 06/30/16 23:33 (Ativan Inj) 0.5 mg Q4H PRN IV PUSH 06/30/16 16:00 07/02/16 04:41 (SEROquel) 25 mg BID PO 07/01/16 09:00 07/07/16 08:25 (Apresoline) 50 mg Q8H PO 07/01/16 17:00 07/07/16 16:57 Morphine Sulfate 2 mg 2 mg Q3H PRN IV PUSH 07/01/16 17:30 07/07/16 16:57 (Cardene Inj/NS 250 ml Inj) 260 ml @ 0 mls/hr TITRATE IV 07/02/16 20:00 07/06/16 21:41 (Prinivil) 20 mg Q12HR PO 07/04/16 21:00 07/07/16 08:25 (Catapres) 0.1 mg Q4H PRN PO 07/04/16 09:45 (Fosrenol Chew) 1,000 mg TID CHEW 07/04/16 18:00 07/07/16 16:57 (Coumadin) 5 mg DAILY@16 PO 07/05/16 16:00 07/07/16 16:57 (Procardia Xl) 60 mg BID PO 07/06/16 21:00 07/07/16 08:25 (Nephrocaps) 1 cap DAILY PO 07/07/16 09:00 07/07/16 08:25 (Neurontin) 100 mg DAILY PO 07/08/16 09:00 (Isis Herman) Physical Exam General Appearance: No Acute Distress, Comfortable, Malnourished (Isis Herman) Eyes Eye Exam: Sclera White (Isis Herman) Neck Neck Exam: Neck Supple (Isis Herman) Pulmonary Resp Exam: Clear Bilaterally, Breath Sounds Equal (Isis Herman) Cardiology CV Exam: Irregular (Isis Herman) Gastrointestinal/Abdomen GI Exam: Soft, Non-Tender (Isis Herman) Integumentary Skin Exam: Dry (Isis Herman) Extremeties Extremities Exam: No Edema (Isis Herman) Neurologic Neuro Exam: Alert, Awake, Obtunded (Isis Herman) Assessment/Plan Problem List: (1) ESRD (end stage renal disease) on dialysis Plan: Continue hemodialysis Tuesday and Saturdays. s/p PD catheter removal. Will try to arrange vein mapping in house as this was supposed to happen today as outpatient. Will place order once confirmed if this can be done in house. Medications should be adjusted for ESRD. Avoid gadolinium. (2) HTN (hypertension) Plan: Continue on current medications. (3) Hypercalcemia Plan: Improved. No evidence of myeloma. PTH related protein not elevated. Intact PTH level elevated but secondary hyperparathyroidism of renal disease is a consideration. Difficult to say if the patient may have a primary hyperparathyroidism or tertiary hyperparathyroidism in the setting of his end- stage renal disease. We'll consider adding Sensipar if the calcium level worsens.. (4) Peritonitis due to infected peritoneal dialysis catheter Plan: Peritoneal dialysis catheter has been removed. Continue vancomycin for a total of 2 weeks. Can be continued as an outpatient post discharge. (5) Encephalopathy Plan: Improved/resolving Etiology still unclear--metabolic? (Isis Herman) Plan The exam, history, and the medical decision-making described in the above note were completed with the assistance of the PA-Veronica. I reviewed and agree with the findings presented. I attest that I had a [id number] encounter with the patient on the same day, and personally performed and documented my assessment and findings in the medical record. (Danita Maria MD) Problem Qualifiers (1) HTN (hypertension): Qualified Code: I10 - Essential hypertension Isis Herman Jul 07, 2016 18:11 Danita Maria MD Jul 08, 2016 19:03
[2016-07-07] MEDS: ATORVASTATIN 10 MG TAB PO SCH (20:48)
[2016-07-08] VITALS (7 sets, daily range): BP systolic 141–183; BP diastolic 62–86; PULSE 51–78; RESP 16–20; TEMP 97.8–98.4; O2SAT 94–96
[2016-07-08] MEDS: hydrALAZINE HCL 25 MG TAB PO SCH ×3 (01:14→18:00)
[2016-07-08 07:54] LABS: PROTHROMBIN TIME - PATIENT 34.2 SEC (9.8-11.6)
[2016-07-08] MEDS: FLUTICASONE PROPIONATE 50 MCG/ACT 16 GM NASAL SPRAY EACH NARE SCH (08:10)
[2016-07-08 08:12] LABS: POTASSIUM 3.4 MEQ/L (3.5-5.1)
[2016-07-08 08:14] LABS: HEMATOCRIT 26.6 % (39.0-51.0); MEAN CORPUSCULAR HGB CONC 32.6 % (32.0-36.0); PLATELET COUNT 354 TH/MM3 (150-450); RED BLOOD COUNT 2.71 MIL/MM3 (4.50-5.90); RED CELL DISTRIBUTION WIDTH 15.3 % (11.6-17.2); REVIEW FLAG FINAL; WHITE BLOOD COUNT 12.6 TH/MM3 (4.0-11.0)
[2016-07-08 08:47] LABS: BICARBONATE 28.7 MEQ/L (21.0-32.0)
[2016-07-08] MEDS: LANTHANUM CARBONATE 500 MG CHEWABLE TABLET CHEW SCH ×3 (09:00→17:59)
[2016-07-08] MEDS: EPOETIN ALFA 10,000 UNITS/ML VIAL IV SCH (11:21)
[2016-07-08] MEDS: FINASTERIDE 5 MG TAB PO SCH (13:21)
[2016-07-08] MEDS: LORATADINE 10 MG TAB PO SCH (13:21)
[2016-07-08] MEDS: LISINOPRIL 20 MG TAB PO SCH ×2 (13:21→23:17)
[2016-07-08] MEDS: QUEtiapine FUMARATE 25 MG TAB PO SCH ×2 (13:22→23:17)
[2016-07-08] MEDS: NIFEdipine 60 MG SUSTAINED RELEASE TAB PO SCH ×2 (13:22→23:17)
[2016-07-08] MEDS: GABAPENTIN 100 MG CAP PO SCH (13:22)
[2016-07-08] MEDS: VITAMIN B CMPLX/VITC/FOLIC AC CAP PO SCH (13:23)
[2016-07-08] MEDS: TAMSULOSIN HCL 0.4 MG CAP PO SCH (13:23)
--- NOTE | 2016-07-08 14:37 | HHI.PR ---
Subjective Remarks No new complaints. Objective Vitals Vital Signs Date Time Temp Pulse Resp B/P Pulse Ox O2 Delivery O2 Flow Rate FiO2 07/08/16 13:16 98.2 69 20 165/62 94 07/08/16 08:00 98.2 65 18 141/67 95 07/08/16 08:00 59 07/08/16 03:50 98.2 68 16 155/70 95 07/07/16 23:30 98.1 68 18 161/73 94 07/07/16 22:00 80 07/07/16 21:03 100 21 07/07/16 20:00 98.2 67 21 145/67 99 07/07/16 20:00 67 07/07/16 18:00 73 07/07/16 16:00 68 07/07/16 16:00 98.2 68 24 127/60 97 07/07/16 07/07/16 07/08/16 15:00 23:00 07:00 Intake Total 1010 ml 480 ml 120 ml Output Total 75 ml 50 ml 100 ml Balance 935 ml 430 ml 20 ml Intake Oral 660 ml 480 ml 120 ml IV Total 350 ml Output Urine Total 75 ml 50 ml 100 ml # Bowel Movements 0 Result Diagram: 07/08/16 0620 07/08/16 0620 Imaging Last Impressions Brain MRI 07/01/16 0000 Signed Impressions: Service Date/Time: June 11:24 - CONCLUSION: 1. No acute intracranial abnormality. 2. Mucus retention cysts within the left maxillary sinus. Winston Grande MD Abdomen Ultrasound 07/01/16 0000 Signed Impressions: Service Date/Time: June 08:40 - CONCLUSION: 1. Increased cortical echogenicity of the kidneys bilaterally. Kidneys are also somewhat diminutive in size. Findings are concerning for chronic medical renal disease. 2. Benign appearing 1.5-1.8 cm cortical cyst in the midpole of the right kidney. 3. 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 Addy Almazan MD Chest X-Ray 06/30/16 0000 Signed Impressions: Service Date/Time: Thursday, June 30, 2016 07:11 - CONCLUSION: 1. Cardiomegaly. 2. No acute focal pulmonary infiltrate or pulmonary vascular congestion. Winsotn Grande MD Head CT 06/29/16 0733 Signed Impressions: Service Date/Time: Wednesday, June 29, 2016 08:30 - CONCLUSION: 1. No acute intracranial abnormality. 2. Scattered mucous retention cysts within the left maxillary sinus. Winston Grande MD Wrist X-Ray 06/29/16 0000 Signed Impressions: Service Date/Time: Wednesday, June 29, 2016 08:24 - CONCLUSION: 1. Bony remodeling in the distal radial diaphysis with a regional sideplate and osseous screws characteristic for an old healed fracture injury. 2. Accessory ossification versus old avulsion injury of the ulnar styloid. 3. No acute fracture. 4. Osteoarthritis of the first CMC joint. Addy Almazan MD Objective Remarks GENERAL: This is a well-nourished, well-developed patient, in no apparent distress. CARDIOVASCULAR: Regular rate and rhythm without murmurs, gallops, or rubs. RESPIRATORY: Clear to auscultation. Breath sounds equal bilaterally. No wheezes , rales, or rhonchi. GASTROINTESTINAL: Abdomen soft, non-tender, nondistended. Normal active bowel sounds MUSCULOSKELETAL: Extremities without clubbing, cyanosis, or edema. NEURO: Alert & Oriented x3 but confused at times, [place] Skin: large ecchymotic area at pt's right arm and elbow, but NOT tender on palpation A/P Problem List: (1) Mental status change Status: Acute Plan: - improving - comgmt with Neurology - Pt has ESRD converted from PD to HD in April for ineffective fluid removal. - Pt presented with severe htn and metabolic encephalopathy. - CT imaging in ED negative for ICH/CVA. mri neg for cva - exclude underlying sepsis. peritoneal fluid only 1cc removed and grew staph epi - Pt receiving Cefepime (07/01 - 07/07) & vancomycin (06/29, 07/01, 07/03), consider deescalating antibiotics 07/07 - case d/w Dr. Maria (07/06/16) - off Cardene - PO Procardia xl, lisinopril, Aldactone --> increase to 75mg TID, observe - HD 3x/week, last HD 07/03. Pt to receive HD today (07/06/16) - anticipate discharge to SNF in 1-3 days - Case discussed at length with pt and at the bedside. (2) ESRD (end stage renal disease) on dialysis Status: Chronic Plan: - comgmt with Nephrology - HD [facility] Thurs - PD Catheter removed by Dr. Barnes (07/05/16) - vein mapping per Nephrology (3) HTN (hypertension) Status: Chronic Plan: - apresoline - lisinopril - procardia XL - cardene gtt, will try to wean (4) BPH (benign prostatic hyperplasia) Status: Chronic Plan: - flomax, proscar (5) Atrial fibrillation Status: Chronic Plan: home meds as tolerated. Problem Qualifiers (1) HTN (hypertension): Qualified Code: I10 - Essential hypertension Vasile Bobby DO Jul 08, 2016 14:37
--- NOTE | 2016-07-08 17:27 | MP ---
cc: MANJU BARNES DATE OF SURGERY 07/05/16 PREOPERATIVE DIAGNOSIS Peritoneal dialysis catheter infection. POSTOPERATIVE DIAGNOSIS Peritoneal dialysis catheter infection. PROCEDURE Removal of peritoneal dialysis catheter. SURGEON Danita Barnes MD ANESTHESIA Local MAC PROCEDURE IN DETAIL With the patient in the supine position and under IV sedation, the abdomen was thoroughly prepped with Betadine and draped in a sterile fashion. Scheduled IV antibiotics were being administered and no additional antibiotics were given preoperatively. Following a protocol time-out, the skin and subcutaneous tissue surrounding the peritoneal dialysis catheter placement scar was infiltrated with 0.5% Marcaine with epinephrine. The old scar was re-incised. Dissection was continued sharply through underlying subcutaneous tissue. The internal catheter cuff was mobilized free of the ___ rectus fascial adhesions. The subcutaneous catheter cuff was also fully mobilized. Both the peritoneal and subcutaneous portions of the catheter were removed entirely. The catheter tip was excised and submitted for culture. Strict hemostasis was assured. The circular shaped fascial defect was secured with interrupted 0-PDS. Skin incisions closed with continuous subcuticular 5-0 Monocryl, reinforced with Steri-Strips and covered with sterile gauze. Instrument, needle, sponge count correct x2. No operative complications. The patient returned to the recovery room in stable condition having tolerated the procedure well. Manju Barnes MD JELIECER/ /7:46 AM /5:17 PM
[2016-07-08] MEDS: WARFARIN SOD 5 MG TAB PO SCH (18:00)
--- NOTE | 2016-07-08 19:15 | HHI.NPPN ---
Subjective History of Present Illness The patient is a 75 yo [place] male who is known to our services for ESRD. According to reports from his , he was in his normal state of health all yesterday besides a fall from his wheelchair. This was not witnessed as she was at work, but he fell on R wrist. Was on the floor when she came home from work and it is not clear at the present how long he was on the ground. States this AM she woke him up for transportation to his HD treatment, and he was mentally altered. EMS was called for transport to [facility] [place] for evaluation. Has has CT of head that was negative for stroke. BP quite elevated. Has been previously instructed to hold BP medications on HD days, but to take as scheduled on non-HD days, but given his fall yesterday, it is not certain if he took any of his BP medications. Seen in ED room and the patient himself if oriented to person and place, but not time. He is very agitated saying he wants to get up out of the bed. Does keep pointing to his right wrist saying it hurts. Interval History Patient resting comfortably. Not disturbed. Had dialysis earlier today. Review of Systems Musculoskeletal MS Remarks R wrist pain Objective Data Data 07/07/16 07/08/16 19:00 07:00 Intake Total 1010 ml 600 ml Output Total 75 ml 150 ml Balance 935 ml 450 ml Intake Oral 660 ml 600 ml IV Total 350 ml Output Urine Total 75 ml 150 ml # Bowel Movements 0 Vital Signs Date Time Temp Pulse Resp B/P Pulse Ox O2 Delivery O2 Flow Rate FiO2 07/08/16 16:00 98.4 78 20 167/76 94 07/08/16 13:16 98.2 69 20 165/62 94 07/08/16 08:00 98.2 65 18 141/67 95 07/08/16 08:00 59 07/08/16 03:50 98.2 68 16 155/70 95 07/07/16 23:30 98.1 68 18 161/73 94 07/07/16 22:00 80 07/07/16 21:03 100 21 07/07/16 20:00 98.2 67 21 145/67 99 07/07/16 20:00 67 -: 07/08/16 0620 07/08/16 0620 Tubes & Lines: Perma-Cath Medication Review Current Medications IV Flush (NS Flush) 2 ml UNSCH PRN IVF FLUSH AFTER USING IV ACCESS; Start 06/29 at 07:45; Stop 06/29/16 at 11:19; Status DC Labetalol HCl (Trandate Inj) 20 mg ONCE ONCE IV PUSH Last administered on 06/29 08:08; Start 06/29/16 at 08:00; Stop 06/29/16 at 08:01; Status DC Hydralazine HCl (Apresoline Inj) 20 mg ONCE ONCE IV PUSH Last administered on 06/29/16 09:19; Start 06/29/16 at 09:15; Stop 06/29/16 at 09:26; Status DC Lorazepam (Ativan Inj) 1 mg ONCE ONCE IV PUSH Last administered on 06/29/16 10:05; Start 06/29/16 at 10:00; Stop 06/29/16 at 10:01; Status DC Dextrose (D50w (Syr) Inj) 50 ml ONCE ONCE IV Last administered on 06/29/16 10 :06; Start 06/29/16 at 10:00; Stop 06/29/16 at 10:01; Status DC Insulin Human Regular (NovoLIN R INJ) 10 units ONCE ONCE IVP Last administered on 06/29/16 10:06; Start 06/29/16 at 10:00; Stop 06/29/16 at 10:01 ; Status DC Sodium Bicarbonate 50 meq 50 meq ONCE ONCE IV PUSH Last administered on 10:06; Start 06/29/16 at 10:00; Stop 06/29/16 at 10:01; Status DC Sodium Chloride (NS 1000 ml Inj) 1,000 ml @ 0 mls/hr Q0M PRN IV For Prime & Rinse Back Last administered on 07/06/16 12:43; Start 06/29/16 at 10:03 Heparin Sodium (Porcine) 8000 units 8,000 units UNSCH PRN IVF WITH DIALYSIS; Start 06/29/16 at 10:15 Sodium Chloride 1,000 ml @ 200 mls/hr Q5H PRN IV WITH DIALYSIS; Start 06/29/16 at 10:03 Sodium Chloride (NS 1000 ml Inj) 1,000 ml @ 0 mls/hr Q0M PRN IV WITH DIALYSIS; Start 06/29/16 at 10:03 Mannitol (Mannitol Inj) 12.5 gm UNSCH PRN IV WITH DIALYSIS; Start 06/29/16 at 10:15 Albumin Human (Albumin 25% Inj) 25 gm UNSCH PRN IV WITH DIALYSIS; Start at 10:15 Sodium Chloride (NS Flush) 5 ml UNSCH PRN IV FLUSH WITH DIALYSIS; Start at 10:15 Heparin Sodium (Porcine) (Heparin Inj) UNSCH PRN .XX WITH DIALYSIS Last administered on 07/06/16 12:45; Start 06/29/16 at 10:15 Gentamicin Sulfate (Gentamicin (Dialysis) Inj) 20 mg UNSCH PRN IV WITH DIALYSIS Last administered on 07/06/16 12:45; Start 06/29/16 at 10:15 Ondansetron HCl (Zofran Inj) 4 mg UNSCH PRN IV WITH DIALYSIS Last administered on 06/30/16 09:15; Start 06/29/16 at 10:15 Acetaminophen (Tylenol) 650 mg UNSCH PRN PO for headach, pain, temp > 101F; Start 06/29/16 at 10:15 Diphenhydramine HCl (Benadryl) 25 mg UNSCH PRN PO for hives/itching/anaphylaxis ; Start 06/29/16 at 10:15 Nitroglycerin (Nitrostat Sl) 0.4 mg UNSCH PRN SL CHEST PAIN; Start 06/29/16 at 10:15 Clonidine (Catapres) 0.1 mg UNSCH PRN PO for BP > 180/100 X 2 readings; Start 06/29/16 at 10:15; Stop 07/04/16 at 09:36; Status DC Gelatin 1 foam 1 foam UNSCH PRN TOP SEE LABEL COMMENTS; Start 06/29/16 at 10:15 Vancomycin HCl/ Sodium Chloride (Vancomycin Inj/ NS 250 ml Inj) 250 ml @ 250 mls/hr ONCE ONCE IV Last administered on 06/29/16 10:34; Start 06/29/16 at 10 :15; Stop 06/29/16 at 11:14; Status DC Atorvastatin Calcium (Lipitor) 10 mg HS PO Last administered on 07/07/16 20:48 ; Start 06/29/16 at 21:00 Calcium Acetate (Phoslo) 1,334 mg TID PO ; Start 06/29/16 at 13:00; Stop at 13:00; Status DC Finasteride (Proscar) 5 mg DAILY PO Last administered on 07/08/16 13:21; Start 06/30/16 at 09:00 Fluticasone Propionate (Flonase Mario Spr) 1 spray DAILY EACH NARE Last administered on 07/08/16 08:10; Start 06/30/16 at 09:00 Furosemide (Lasix) 40 mg BID PO ; Start 06/29/16 at 21:00; Stop 06/29/16 at 22: 29; Status DC Hydralazine HCl (Apresoline) 25 mg BID PO Last administered on 07/01/16 12:02 ; Start 06/29/16 at 21:00; Stop 07/01/16 at 15:58; Status DC Loratadine (Claritin) 10 mg DAILY PO Last administered on 07/08/16 13:21; Start 06/30/16 at 09:00 Oxycodone/ Acetaminophen (Percocet 5-325 Mg) 1 tab Q6H PRN PO PAIN 3-10 Last administered on 07/04/16 11:25; Start 06/29/16 at 10:15 Tamsulosin HCl (Flomax) 0.4 mg DAILY PO Last administered on 07/08/16 13:23; Start 06/30/16 at 09:00 Warfarin Sodium (Coumadin) 5 mg SuMoWeFr@16 PO Last administered on 06/30/16 15:25; Start 06/30/16 at 16:00; Stop 07/04/16 at 08:50; Status DC Warfarin Sodium (Coumadin) 7.5 mg TuThSa@16 PO Last administered on 07/01/16 16:00; Start 06/29/16 at 16:00; Stop 07/04/16 at 08:50; Status DC Amlodipine Besylate (Norvasc) 5 mg DAILY PO Last administered on 07/01/16 12: 02; Start 06/30/16 at 09:00; Stop 07/04/16 at 09:36; Status DC Calcitonin [place] 300 units 300 units Q12HR SQ Last administered on 07/01/16 12:02; Start 06/29/16 at 23:00; Stop 07/01/16 at 09:02; Status DC Vancomycin HCl 1000 mg/Sodium Chloride 250 ml @ 250 mls/hr WITH DIALYSIS IV Last administered on 07/06/16 12:44; Start 06/29/16 at 14:45 Ceftriaxone Sodium/Sodium Chloride (Rocephin Inj/NS Inj) 100 ml @ 200 mls/hr Q24H IV ; Start 06/29/16 at 17:00; Stop 06/29/16 at 17:00; Status DC Hydralazine HCl 10 mg 10 mg Q3HR PRN IV PUSH sbp > 200 Last administered on 16:41; Start 06/29/16 at 16:00; Stop 07/07/16 at 22:56; Status DC Dexmedetomidine HCl (Precedex Inj) 50 ml @ 0 mls/hr TITRATE IV Last administered on 06/30/16 03:01; Start 06/29/16 at 16:00; Stop 06/30/16 at 09:53 ; Status DC Lorazepam 1 mg 1 mg Q4H PRN IV PUSH agitation Last administered on 06/30/16 10 :58; Start 06/29/16 at 16:00; Stop 06/30/16 at 15:54; Status DC Nicardipine HCl 25 mg/Sodium Chloride 260 ml @ 0 mls/hr TITRATE IV Last administered on 06/30/16 23:40; Start 06/29/16 at 18:00; Stop 07/01/16 at 17:26 ; Status DC Cefepime HCl/ Sodium Chloride (Maxipime Inj/NS Inj) 100 ml @ 200 mls/hr Q12H IV Last administered on 06/30/16 06:29; Start 06/29/16 at 18:00; Stop at 15:25; Status DC Miscellaneous Information Patient in critical care unit? Ass... [id number] Last administered on 06/29/16 17:45; Start 06/29/16 at 17:45 Chlorhexidine Gluconate (Chlorhexidine 2% Cloth) 3 pack DAILY@04 TOP Last administered on 07/04/16 04:00; Start 06/30/16 at 04:00; Stop 07/04/16 at 04:02 ; Status DC Chlorhexidine Gluconate (Chlorhexidine 2% Cloth) 3 pack UNSCH PRN TOP HYGIENIC CARE; Start 06/29/16 at 17:45; Stop 07/04/16 at 17:41; Status DC Labetalol HCl (Trandate Inj) 20 mg Q4H PRN IV PUSH SYS BP GREATER THAN 170 MMHG Last administered on 07/02/16 14:44; Start 06/29/16 at 18:00 Furosemide (Lasix Inj) 40 mg BID IV Last administered on 07/01/16 22:07; Start 06/29/16 at 23:00; Stop 07/04/16 at 09:36; Status DC Haloperidol Lactate 2 mg 2 mg Q4H PRN IV agitation; Start 06/30/16 at 06:45; Stop 06/30/16 at 15:53; Status DC Pharmacy Profile Note (Coumadin Consult Pharmacy) 0 ml @ 0 mls/hr UNSCH OTHER ; Start 06/30/16 at 10:00 Insulin Aspart (NovoLOG SUPPLEMENTAL SCALE) 1 Q4H SQ Last administered on 20:46; Start 06/30/16 at 12:00; Stop 07/06/16 at 21:02; Status DC Dextrose (D50w (Vial) Inj) 25 ml UNSCH PRN IV PUSH HYPOGLYCEMIA - SEE COMMENTS ; Start 06/30/16 at 11:15 Glucagon (Glucagon Inj) 1 mg UNSCH PRN OTHER HYPOGLYCEMIA-SEE COMMENTS; Start 06/30/16 at 11:15 Patient Medication Teaching 1 1 ONCE ONCE XX Last administered on 06/30/16 16 :00; Start 06/30/16 at 16:00; Stop 06/30/16 at 16:01; Status DC Cefepime HCl/ Sodium Chloride (Maxipime Inj/NS Inj) 100 ml @ 200 mls/hr Q24H IV Last administered on 07/07/16 04:34; Start 06/30/16 at 06:00; Stop at 16:15; Status DC Haloperidol Lactate (Haldol Inj) 1 mg Q4H PRN IV agitation Last administered on 06/30/16 23:33; Start 06/30/16 at 18:45 Lorazepam (Ativan Inj) 0.5 mg Q4H PRN IV PUSH agitation Last administered on 04:41; Start 06/30/16 at 16:00 Haloperidol Lactate (Haldol Inj) 2 mg NOW ONCE IV PUSH Last administered on 17:07; Start 06/30/16 at 17:00; Stop 06/30/16 at 17:01; Status DC Quetiapine Fumarate (SEROquel) 25 mg BID PO Last administered on 07/08/16 13: 22; Start 07/01/16 at 09:00 Hydralazine HCl (Apresoline) 50 mg Q8H PO Last administered on 07/08/16 13:22 ; Start 07/01/16 at 17:00; Stop 07/08/16 at 14:36; Status DC Morphine Sulfate 2 mg 2 mg Q3H PRN IV PUSH PAIN 4-10, IF NOT TAKING PO Last administered on 07/07/16 16:57; Start 07/01/16 at 17:30 Nicardipine HCl 25 mg/Sodium Chloride 260 ml @ 0 mls/hr TITRATE IV ; Start 07/01 at 17:30; Stop 07/01/16 at 17:30; Status DC Nicardipine HCl/ Sodium Chloride (Cardene Inj/NS 250 ml Inj) 260 ml @ 0 mls/hr TITRATE IV Last administered on 07/02/16 18:10; Start 07/01/16 at 17:30; Stop 07/02/16 at 19:49; Status DC Morphine Sulfate (Morphine Inj) 8 mg STK-MED ONCE .ROUTE Last administered on 17:25; Start 07/01/16 at 17:25; Stop 07/01/16 at 17:26; Status DC Etomidate 20 mg 20 mg STK-MED ONCE .ROUTE ; Start 07/01/16 at 23:18; Stop at 23:19; Status DC Sodium Chloride 1,000 ml @ 50 mls/hr Q20H IV Last administered on 07/07/16 08 :27; Start 07/02/16 at 09:30; Stop 07/07/16 at 16:28; Status DC Acyclovir Sodium 30 mg/Sodium Chloride 100 ml @ 100 mls/hr Q24H IV ; Start at 11:00; Stop 07/02/16 at 11:00; Status DC Thiamine HCl 100 mg/Sodium Chloride 101 ml @ 101 mls/hr DAILY IV Last administered on 07/06/16 09:47; Start 07/02/16 at 10:00; Stop 07/06/16 at 12:00 ; Status DC Acyclovir Sodium 300 mg/Sodium Chloride 100 ml @ 100 mls/hr Q24H IV Last administered on 07/04/16 11:24; Start 07/02/16 at 12:00; Stop 07/04/16 at 17:56 ; Status DC Nicardipine HCl/ Sodium Chloride (Cardene Inj/NS 250 ml Inj) 260 ml @ 0 mls/hr TITRATE IV Last administered on 07/06/16 21:41; Start 07/02/16 at 20:00; Stop 07/07/16 at 22:42; Status DC Warfarin Sodium (Coumadin) 4 mg DAILY@1600 PO Last administered on 07/04/16 16 :01; Start 07/04/16 at 16:00; Stop 07/05/16 at 08:14; Status DC Lisinopril (Prinivil) 20 mg Q12HR PO Last administered on 07/08/16 13:21; Start 07/04/16 at 21:00 Lisinopril (Prinivil) 20 mg ONCE ONCE PO Last administered on 07/04/16 10:00 ; Start 07/04/16 at 10:00; Stop 07/04/16 at 10:01; Status DC Clonidine (Catapres) 0.1 mg Q4H PRN PO prn sbp > 170; Start 07/04/16 at 09:45 Lanthanum Carbonate (Fosrenol Chew) 1,000 mg TID CHEW Last administered on 07/08 17:59; Start 07/04/16 at 18:00 Warfarin Sodium (Coumadin) 5 mg DAILY@16 PO Last administered on 07/08/16 18: 00; Start 07/05/16 at 16:00 Amlodipine Besylate (Norvasc) 5 mg DAILY PO ; Start 07/05/16 at 20:00; Stop at 20:00; Status DC Epoetin [place] (Epogen Inj) 5,000 units WITH DIALYSIS IV Last administered on 11:21; Start 07/05/16 at 11:45 Bupivacaine HCl/ Epinephrine Bitart (Sensorcaine-Epinephrine Pf 0.25% Inj) 10 ml STK-MED ONCE .ROUTE ; Start 07/05/16 at 12:38; Stop 07/05/16 at 12:39; Status DC Bupivacaine HCl/ Epinephrine Bitart (Sensorcaine-Epinephrine Pf 0.5% Inj) 30 ml STK-MED ONCE .ROUTE Last administered on 07/05/16 16:15; Start 07/05/16 at 12: 41; Stop 07/05/16 at 12:42; Status DC Nifedipine (Procardia Xl) 60 mg DAILY PO Last administered on 07/06/16 09:48; Start 07/06/16 at 09:00; Stop 07/06/16 at 11:20; Status DC Fentanyl Citrate (fentaNYL INJ) 100 mcg STK-MED ONCE .ROUTE ; Start 07/05/16 at 16:49; Stop 07/05/16 at 16:50; Status DC Midazolam HCl (Versed Inj) 2 mg STK-MED ONCE .ROUTE ; Start 07/05/16 at 16:49; Stop 07/05/16 at 16:50; Status DC Miscellaneous Information ALL NURSING DEPARTME... UNSCH PRN XX SEE LABEL COMMENTS; Start 07/05/16 at 17:00; Stop 07/06/16 at 16:59; Status DC Nifedipine (Procardia Xl) 60 mg BID PO Last administered on 07/08/16 13:22; Start 07/06/16 at 21:00 Vitamin B Complex/ Vit C/Folic Acid (Nephrocaps) 1 cap DAILY PO Last administered on 07/08/16 13:23; Start 07/07/16 at 09:00 Gabapentin (Neurontin) 100 mg DAILY PO Last administered on 07/08/16 13:22; Start 07/08/16 at 09:00 Hydralazine HCl (Apresoline) 75 mg Q8H PO Last administered on 07/08/16 18:00 ; Start 07/08/16 at 17:00 Physical Exam General Appearance: No Acute Distress, Comfortable, Malnourished Eyes Eye Exam: Sclera White Neck Neck Exam: Neck Supple Pulmonary Resp Exam: Clear Bilaterally, Breath Sounds Equal Cardiology CV Exam: Irregular Gastrointestinal/Abdomen GI Exam: Soft, Non-Tender Integumentary Skin Exam: Dry Extremeties Extremities Exam: No Edema Neurologic Neuro Exam: Alert, Awake, Obtunded Assessment/Plan Problem List: (1) ESRD (end stage renal disease) on dialysis Plan: Continue hemodialysis Tuesday and Saturdays. s/p PD catheter removal. Will try to arrange vein mapping in house as this was supposed to happen today as outpatient. Will place order once confirmed if this can be done in house. Medications should be adjusted for ESRD. Avoid gadolinium. (2) HTN (hypertension) Plan: Continue on current medications. (3) Hypercalcemia Plan: Improved. No evidence of myeloma. PTH related protein not elevated. Intact PTH level elevated but secondary hyperparathyroidism of renal disease is a consideration. Difficult to say if the patient may have a primary hyperparathyroidism or tertiary hyperparathyroidism in the setting of his end- stage renal disease. We'll consider adding Sensipar if the calcium level worsens.. (4) Peritonitis due to infected peritoneal dialysis catheter Plan: Peritoneal dialysis catheter has been removed. Continue vancomycin for a total of 2 weeks. Can be continued as an outpatient post discharge. (5) Encephalopathy Plan: Improved/resolving Etiology still unclear--metabolic? Problem Qualifiers (1) HTN (hypertension): Qualified Code: I10 - Essential hypertension Danita Maria MD Jul 08, 2016 19:15
--- NOTE | 2016-07-08 21:20 | RADRPT ---
EXAM DATE/TIME: 07/08/2016 19:24 [facility] COMPARISON: No previous studies available for comparison. INDICATIONS : Arteriovenous fistula placement. MEDICAL HISTORY : Hypertension. Afib. Gastritis. Stage III renal failure. Scoliosis. Diabetes. Anticoagulant therapy, Coumadin. SURGICAL HISTORY : Splenectomy. Appendectomy. Bilateral cataract surgery. Left hernia repair. Peitonela dialysis and h emodialysis. Right forearm plate. Right rotator cuff. Blood transfusions. ENCOUNTER: Initial ACUITY: 1 day PAIN SCORE: 0/10 LOCATION: Right arm. FINDINGS: There is spontaneous flow documented in the brachial, basilic, cephalic, axillary, and subclavian vei ns. The vessels are compressible and augmentation response is documented. No filling defects are se en. The flow is phasic with respiration. Direction of flow in the jugular vein is caudal. CONCLUSION: No evidence of deep venous thrombosis within the right upper extremity. Winston Grande MD on July 08, 2016 at 21:18 Board Certified Radiologist. This report was verified electronically.
--- NOTE | 2016-07-08 21:21 | RADRPT ---
EXAM DATE/TIME: 07/08/2016 19:36 [facility] COMPARISON: No previous studies available for comparison. INDICATIONS : Arteriovenous fistula placement. MEDICAL HISTORY : Hypertension. Afib. Gastritis. Stage III renal failure. Scoliosis. Diabetes. Anticoagulant therapy, Coumadin. SURGICAL HISTORY : Splenectomy. Appendectomy. Bilateral cataract surgery. Left hernia repair. Peitonela dialysis and he modialysis. Right forearm plate. Right rotator cuff. Blood transfusions. ENCOUNTER: Initial ACUITY: 1 day PAIN SCORE: 0/10 LOCATION: Right arm. CEPHALIC: ORIGIN: 1 mm MID-ARM: 1 mm ELBOW: 1 mm FOREARM: Non-visualized WRIST: 1 mm BASILIC: ORIGIN: 5 mm MID-ARM: 5 mm ELBOW: 6 mm ARTERIES: BRACHIAL: 5 mm ULNAR: 2 mm RADIAL: 1 mm VEINS: RADIAL: 1 mm ULNAR: 1 mm FINDINGS: The venous system of the upper extremity is patent by color Doppler imaging. Measurements of the arm veins (in mm) are listed above. CONCLUSION: Right upper extremity mapping was performed as described above. Winston Grande MD on July 08, 2016 at 21:19 Board Certified Radiologist. This report was verified electronically.
[2016-07-08] MEDS: ATORVASTATIN 10 MG TAB PO SCH (23:17)
[2016-07-09] VITALS (7 sets, daily range): BP systolic 127–181; BP diastolic 60–91; PULSE 55–82; RESP 18–20; TEMP 98–99; O2SAT 92–96
[2016-07-09] MEDS: hydrALAZINE HCL 25 MG TAB PO SCH ×3 (01:00→19:05)
[2016-07-09 05:38] LABS: INTERNATIONAL NORMALIZED RATIO 3.6 RATIO; PROTHROMBIN TIME - PATIENT 42.4 SEC (9.8-11.6)
[2016-07-09] MEDS: FLUTICASONE PROPIONATE 50 MCG/ACT 16 GM NASAL SPRAY EACH NARE SCH (09:00)
[2016-07-09] MEDS: GABAPENTIN 100 MG CAP PO SCH (10:23)
[2016-07-09] MEDS: VITAMIN B CMPLX/VITC/FOLIC AC CAP PO SCH (10:23)
[2016-07-09] MEDS: LORATADINE 10 MG TAB PO SCH (10:23)
[2016-07-09] MEDS: NIFEdipine 60 MG SUSTAINED RELEASE TAB PO SCH (10:23)
[2016-07-09] MEDS: TAMSULOSIN HCL 0.4 MG CAP PO SCH (10:23)
[2016-07-09] MEDS: LANTHANUM CARBONATE 500 MG CHEWABLE TABLET CHEW SCH ×3 (10:23→18:00)
[2016-07-09] MEDS: LISINOPRIL 20 MG TAB PO SCH (10:23)
[2016-07-09] MEDS: FINASTERIDE 5 MG TAB PO SCH (10:24)
[2016-07-09] MEDS: QUEtiapine FUMARATE 25 MG TAB PO SCH (10:24)
[2016-07-09] MEDS ORDERED: LANT500 CHEW (14:26)
[2016-07-09] MEDS ORDERED: WARF-21 PO (14:26)
[2016-07-09] MEDS ORDERED: HYDR25TA35 PO (14:26)
[2016-07-09] MEDS ORDERED: GABA100C4 PO (14:26)
[2016-07-09] MEDS ORDERED: NIFE60TA8 PO (14:26)
[2016-07-09] MEDS ORDERED: WARF-23 PO (14:26)
[2016-07-09] MEDS ORDERED: QUET1TAB7 PO (14:26)
[2016-07-09] MEDS ORDERED: PERC5TAB12 PO (14:26)
[2016-07-09] MEDS ORDERED: NEPHRO PO (14:26)
--- NOTE | 2016-07-09 14:38 | HHI.DS ---
Discharge Summary Admission Date Jun 29, 2016 at 09:53 Discharge Date: Jul 09, 2016 Admitting Diagnosis uremic encephalopathy (1) Mental status change Diagnosis: Principal (2) ESRD (end stage renal disease) on dialysis Diagnosis: Principal (3) HTN (hypertension) Diagnosis: Principal (4) BPH (benign prostatic hyperplasia) Diagnosis: Secondary (5) Atrial fibrillation Diagnosis: Secondary Brief History Pt is 75 y/o WM with ESRD on HD, atrial fibrillation on chronic anticoagulation with Coumadin, DM,and HTN.. He presented to the ED at [facility] [place] on 06/15/16 from his dialysis center for hypotension and abdominal pain. Pt reported that his BP initially was about systolic 100 when he got to the HD center. They did 2 hours of hemodialysis but called [facility] to bring pt to ED when BP dropped to systolic in the 80s. When pt arrived to the ED his BP was 127/61 and his BP has been stable while in the ED. He also has a peritoneal dialysis catheter still in place and he reports that this was flushed with 1000cc of dialysate and then drained which is the first time it has been used since he was converted to HD at the end of April. He was converted to HD because they had been unable to get enough volume of fluid off of him with just PD and was having issues with LE edema. Pt was admitted at that time for intactable abdomen pain and had CT a/p. The next morning pain was resolved and he was sent home. today he presents with confusion and severe htn. given iv hydralazine and labetolol in ED. Sent to get HD. Pt had 1mg iv ativan. He continued to be agitated but made it through HD. He bp elevated again and he was still encephalopathic so transferred to ICU. CBC/BMP: 07/08/16 0620 07/08/16 0620 Significant Findings Laboratory Tests Test 07/07/16 07/08/16 07/09/16 04:29 06:20 04:20 Prothrombin Time 27.8 SEC 34.2 SEC 42.4 SEC (9.8-11.6) (9.8-11.6) (9.8-11.6) White Blood Count 12.6 TH/MM3 (4.0-11.0) Red Blood Count 2.71 MIL/MM3 (4.50-5.90) Hemoglobin 8.7 GM/DL (13.0-17.0) Hematocrit 26.6 % (39.0-51.0) Potassium Level 3.4 MEQ/L (3.5-5.1) Blood Urea Nitrogen 41 MG/DL (7-18) Creatinine 4.61 MG/DL (0.60-1.30) Estimat Glomerular Filtration 13 ML/MIN (>89) Rate Albumin 2.9 GM/DL (3.4-5.0) PE at Discharge GENERAL: This is a well-nourished, well-developed patient, in no apparent distress. CARDIOVASCULAR: Regular rate and rhythm without murmurs, gallops, or rubs. RESPIRATORY: Clear to auscultation. Breath sounds equal bilaterally. No wheezes , rales, or rhonchi. GASTROINTESTINAL: Abdomen soft, non-tender, nondistended. Normal active bowel sounds MUSCULOSKELETAL: Extremities without clubbing, cyanosis, or edema. NEURO: Alert & Oriented x3 but confused at times, [place] Skin: large ecchymotic area at pt's right arm and elbow, but NOT tender on palpation Hospital Course (1) Mental status change Status: Acute Plan: - improved from admission - comgmt with Neurology - Pt has ESRD converted from PD to HD in April for ineffective fluid removal. - Pt presented with severe htn and metabolic encephalopathy. - CT imaging in ED negative for ICH/CVA. mri neg for cva - exclude underlying sepsis. peritoneal fluid only 1cc removed and grew staph epi - Pt receiving Cefepime (07/01 - 07/07) & vancomycin (06/29, 07/01, 07/03) - case d/w Dr. Maria (07/06/16) will continue vancomycin for another week - off Cardene drip - PO Procardia xl, lisinopril, Aldactone --> increased to 75mg TID, observe. Pt may need further increase as outpt - HD 3x/week - discharge to SNF - see orders (2) ESRD (end stage renal disease) on dialysis Status: Chronic Plan: - comgmt with Nephrology - HD [facility] Thurs - PD Catheter removed by Dr. Barnes (07/05/16) - Pt underwent mapping for future AV fistula creation with Dr. Barnes - see above (3) HTN (hypertension) Status: Chronic Plan: - apresoline 75mg TID, may require further outpt adjustment - lisinopril - procardia XL - cardene gtt off (4) BPH (benign prostatic hyperplasia) Status: Chronic Plan: - flomax, proscar (5) Atrial fibrillation Status: Chronic Plan: home meds as tolerated. Pt Condition on Discharge: Stable Discharge Disposition: Discharge to SNF Discharge Instructions DIET: Follow Instructions for: Heart Healthy Diet Speech Therapy-Diet Recommends: Soft, Honey Thickened Liquids Activities you can perform: Weight Bearing as Shawna Follow up Referrals: Nephrology - [address] Marcos Maria PCP Follow-up - [address] Nikolai Carrasquillo Surgical - [address] Jon Barnes New Medications: Gabapentin (Gabapentin) 100 Mg Cap 100 MG PO BID diabetic neuropathy Days 60 Ref 0 CAP Lanthanum (Fosrenol) 500 Mg Tab 1000 MG CHEW TID dialysis Days 30 Ref 0 EA Nifedipine ER 24 HR (Nifedipine ER 24 HR) 60 Mg Tab 60 MG PO BID htn Days 60 Ref 0 TAB Quetiapine (Quetiapine) 25 Mg Tab 25 MG PO BID agitation Days 30 Ref 0 TAB Vitamin B Cmplx/Vit C/Folic AC (Nephro-Estephanie Rx) 1 Tab 1 CAP PO DAILY dialysis Days 30 TAB Changed Medications: Hydralazine (Hydralazine) 25 Mg Tab 75 MG PO BID Take with a meal Blood Pressure Management #120 Ref 0 TAB (Changed from: 25 MG) Continued Medications: Atorvastatin (Lipitor) 10 Mg Tab 10 MG PO HS Cholesterol Management #30 Ref 0 TAB Benazepril (Benazepril) 40 Mg Tab 40 MG PO DAILY Blood Pressure Management #30 Ref 0 TAB Calcium Acetate (Phosphate Binder) (Calcium Acetate (Phosphate Binder)) 667 Mg Cap 1334 MG PO TID Hyperphosphatemia #180 Ref 0 CAP Diphenhydramine (Diphenhydramine) 25 Mg Tab 25 MG PO Q6H PRN ALLERGIES Ref 0 TAB Finasteride (Proscar) 5 Mg Tab 5 MG PO DAILY Do not crush. Manage Prostate Problems #30 Ref 0 TAB Fluticasone Nasal [place] (Fluticasone Nasal [place]) 50 Mcg/Act Naspr 50 MCG EACH NARE DAILY 50 mcg/spray Allergy Management #1 Ref 0 BOTTLE Loratadine (Claritin) 10 Mg Tab 10 MG PO DAILY Allergy Management Ref 0 TAB Oxycodone-Acetaminophen (Percocet) 5-325 mg Tab 1 TAB PO Q6H PRN PAIN #20 Ref 0 TAB (This prescription has been renewed) Tamsulosin (Flomax) 0.4 Mg Cap 0.4 MG PO DAILY Manage Prostate Problems #30 Ref 0 CAP Warfarin (Warfarin) 5 Mg Tab 5 MG PO SUMOWEFR TAKE 1 TAB (5MG) MON, WED, TUESDAY, TUESDAY Blood Clot Prevention #30 Ref 0 TAB (This prescription has been renewed) Warfarin (Warfarin) 7.5 Mg Tab 7.5 MG PO TUTHSA TAKE ONE TAB (7.5 MG) , , TUE Blood Clot Prevention # 30 Ref 0 TAB (This prescription has been renewed) Discontinued Medications: Ferrous Sulfate (Iron) 28 Mg Tab 45 MG PO DAILY Furosemide (Lasix) 40 Mg Tab 40 MG PO BID #60 Ref 0 TAB Multiple Vitamins W/ Minerals (Multi-Vitamin/Minerals) 1 Tab Tab 1 TAB PO DAILY Freeman 3 Fatty Acids-Freeman 6 FA (Freeman 3-6-9 Complex) 1 Cap Cap 1 CAP PO TID Vitamin E (Vitamin E) 400 Unit Cap 400 UNITS PO DAILY Nutritional Supplement Ref 0 CAP Vasile Bobby DO Jul 09, 2016 14:38
--- NOTE | 2016-07-09 15:38 | HHI.NPPN ---
Subjective History of Present Illness The patient is a 75 yo [place] male who is known to our services for ESRD. According to reports from his , he was in his normal state of health all yesterday besides a fall from his wheelchair. This was not witnessed as she was at work, but he fell on R wrist. Was on the floor when she came home from work and it is not clear at the present how long he was on the ground. States this AM she woke him up for transportation to his HD treatment, and he was mentally altered. EMS was called for transport [place] [facility] [place]. Has has CT of head that was negative for stroke. BP quite elevated. Has been previously instructed to hold BP medications on HD days, but to take as scheduled on non-HD days, but given his fall yesterday, it is not certain if he took any of his BP medications. Seen in ED room and the patient himself if oriented to person and place, but not time. He is very agitated saying he wants to get up out of the bed. Does keep pointing to his right wrist saying it hurts. Interval History Pt feeling well today. Discharge this PM to [facility]. Review of Systems Musculoskeletal MS Remarks R wrist pain Objective Data Data 07/08/16 07/09/16 19:00 07:00 Intake Total 480 ml 600 ml Output Total 2400 ml 900 ml Balance -1920 ml -300 ml Intake Oral 480 ml 600 ml Output Urine Total 400 ml 900 ml Hemodialysis 2000 ml # Bowel Movements 0 0 Vital Signs Date Time Temp Pulse Resp B/P Pulse Ox O2 Delivery O2 Flow Rate FiO2 07/09/16 11:56 98.2 71 18 150/72 95 07/09/16 09:00 69 07/09/16 08:00 99.0 55 20 127/60 96 07/09/16 04:45 155/79 07/09/16 04:26 Room Air 07/09/16 04:26 98.0 82 20 181/84 95 07/09/16 00:25 Room Air 07/09/16 00:25 98.4 62 20 166/91 95 07/08/16 20:14 72 07/08/16 20:00 97.8 70 19 183/86 96 07/08/16 16:00 98.4 78 20 167/76 94 -: 07/08/16 0620 07/08/16 0620 Tubes & Lines: Perma-Cath Physical Exam General Appearance: No Acute Distress, Comfortable, Malnourished Eyes Eye Exam: Sclera White Neck Neck Exam: Neck Supple Pulmonary Resp Exam: Clear Bilaterally, Breath Sounds Equal Cardiology CV Exam: Irregular Gastrointestinal/Abdomen GI Exam: Soft, Non-Tender Integumentary Skin Exam: Dry Extremeties Extremities Exam: No Edema Neurologic Neuro Exam: Alert, Awake, Obtunded Assessment/Plan Problem List: (1) ESRD (end stage renal disease) on dialysis Plan: Continue hemodialysis Tuesday and Saturdays. s/p PD catheter removal. Vein mapping has been completed. Will f/u with Dr. Barnes as outpatient for AVF formation. Medications should be adjusted for ESRD. Avoid gadolinium. OK to be discharged from renal standpoint (2) HTN (hypertension) Plan: Continue on current medications. (3) Hypercalcemia Plan: Improved. No evidence of myeloma. PTH related protein not elevated. Intact PTH level elevated but secondary hyperparathyroidism of renal disease is a consideration. Difficult to say if the patient may have a primary hyperparathyroidism or tertiary hyperparathyroidism in the setting of his end- stage renal disease. We'll consider adding Sensipar if the calcium level worsens.. (4) Peritonitis due to infected peritoneal dialysis catheter Plan: Peritoneal dialysis catheter has been removed. Continue vancomycin for a total of 2 weeks. Can be continued as an outpatient post discharge. (5) Encephalopathy Plan: Improved/resolving Etiology still unclear--metabolic? Problem Qualifiers (1) HTN (hypertension): Qualified Code: I10 - Essential hypertension Isis Herman Jul 09, 2016 15:38
[2016-07-09] MEDS ORDERED: SOD PHOSPHATE/SOD BIPHOSPHATE (ADULT) ENEMA 133ML PR PRN (17:15)
[2016-07-09] MEDS ORDERED: SOD PHOSPHATE/SOD BIPHOSPHATE (ADULT) ENEMA 133ML RECTAL ONE (17:30)
[2016-10-04] MEDS ORDERED: HYDR-3799 PO (15:40)
[2016-10-04] MEDS ORDERED: MULT1TAB PO (15:40)
[2016-10-05] MEDS ORDERED: FURO1TAB61 PO (08:53)
== END 2016-07-09 19:39 | DRG 981 ==
LOC: NEPC 07:17 → NEDA 09:53 → HIMN 16:25 → N04A 07-07 23:30
PROVIDERS: ADMIT Hospitalist; ATTEND Hospitalist
PROC: 5A1D60Z (ICD-10-PCS; 2016-06-29)
PROC: 5A09357 Assistance with Respiratory Ventilation, Less than 24 Consecutive Hours, Continuous Positive Airway Pressure (ICD-10-PCS; 2016-06-30)
PROC: 0WPG33Z Removal of Infusion Device from Peritoneal Cavity, Percutaneous Approach (ICD-10-PCS; principal; 2016-07-05 15:48)
DX: T85.71XA Infection and inflammatory reaction due to peritoneal dialysis catheter, initial encounter (principal); J96.02 Acute respiratory failure with hypercapnia; R65.20 Severe sepsis without septic shock; G93.41 Metabolic encephalopathy; K65.9 Peritonitis, unspecified; A41.9 Sepsis, unspecified organism; E46 Unspecified protein-calorie malnutrition; N18.6 End stage renal disease; I12.0 Hypertensive chronic kidney disease with stage 5 chronic kidney disease or end stage renal disease; I16.1 Hypertensive emergency; I48.91 Unspecified atrial fibrillation; E11.22 Type 2 diabetes mellitus with diabetic chronic kidney disease; N40.0 Benign prostatic hyperplasia without lower urinary tract symptoms; E83.52 Hypercalcemia; D63.1 Anemia in chronic kidney disease; E87.5 Hyperkalemia; M41.9 Scoliosis, unspecified; E78.5 Hyperlipidemia, unspecified; I25.10 Atherosclerotic heart disease of native coronary artery without angina pectoris; I73.9 Peripheral vascular disease, unspecified; R19.7 Diarrhea, unspecified; M25.531 Pain in right wrist; F41.9 Anxiety disorder, unspecified; E83.39 Other disorders of phosphorus metabolism; W05.0XXA Fall from non-moving wheelchair, initial encounter; Y83.8 Other surgical procedures as the cause of abnormal reaction of the patient, or of later complication, without mention of misadventure at the time of the procedure; Z68.21 Body mass index [BMI] 21.0-21.9, adult; Z79.01 Long term (current) use of anticoagulants; Z85.528 Personal history of other malignant neoplasm of kidney; Z87.891 Personal history of nicotine dependence; Z90.81 Acquired absence of spleen; Z99.2 Dependence on renal dialysis
CPT/HCPCS: 36600; 70450; 70551; 71010; 73110; 76700; 80048; 80053; 80069; 81001; 82108; 82140; 82306; 82397; 82550; 82607; 82652; 82784; 82805; 82948; 83605; 83883; 83970; 84155; 84165; 84443; 85025; 85027; 85610; 85652; 86140; 86334; 86403; 86850; 86900; 86901; 87015; 87040; 87070; 87077; 87102; 87116; 87186; 87205; 87206; 87641; 89051; 90935; 93005; 93971; 94002; 94003; 95819; 96365; 96374; 96375; C9399; J0133; J0360; J0630; J0692; J1580; J1630; J1644; J1815; J1940; J2060; J2250; J2270; J2405; J3010; J3370; J3411; J7030; J7050; P9612; Q4081

== ENCOUNTER 2016-08-23 16:03 | Inpatient (IN) | payer MEDICARE ==
[~2016-08-23] VITALS: Ht 190.5 cm; Wt 57.6 kg
[~2016-08-23 16:03] MED LIST changes: +BENA40TA PO; +CALC1CAP PO; -FURO1TAB60 PO; +GABA100C4 PO; -IRON28TA PO; +LANT500 CHEW; -MULTTAB62 PO; +NEPHRO PO; +NIFE60TA8 PO; -OMEGCAP19 PO; +QUET1TAB7 PO; -VITA400C2 PO
[2016-08-23 16:05] VITALS: BP 152/76; PULSE 78; RESP 20; TEMP 100.3; O2SAT 94
[2016-08-23] MEDS ORDERED: PIPERACIL-TAZO 4.5 GM PREMIX 100 ML IV STA (18:44)
[2016-08-23] MEDS ORDERED: VANCOMYCIN INJ 1,000 MG in SODIUM CHLOR 0.9% 250 ML INJ 250 ML IV STA (18:44)
[2016-08-23] MEDS ORDERED: SODIUM CHLORIDE 0.9% FLUSH 10 ML FLUSH IVF PRN (18:45)
[2016-08-23 18:48] VITALS: RESP 20; O2SAT 95
[2016-08-23 18:49] VITALS: BP 173/79; PULSE 83; RESP 20; TEMP 100.1; O2SAT 95
--- NOTE | 2016-08-23 18:51 | PD ---
HPI Chief Complaint: General Weakness Time Seen by Provider: 18:44 Travel History International Travel<30 days: No Contact w/Intl Traveler<30days: No Traveled to known affect area: No History of Present Illness HPI 75-year-old male with history of end-stage renal disease after nephritis as a child, had been on peritoneal dialysis until last month when he was admitted for peritonitis from peritoneal dialysis and sepsis, had the peritoneal dialysis catheter removed and is currently getting dialyzed through a temporary catheter, here because he has had several days' history of fevers, chills, and shakiness, not able to stand up according to patient's . He denies any chest pains, coughing, fevers, abdominal pains, or other symptoms. Modifying Factors: None Associated Signs & Symptoms: Shakiness, general weakness, difficulty standing, fevers Risk Factors: Elderly, dialysis PFSH Past Medical History Hx Anticoagulant Therapy: Yes (WARFARIN) Atrial Fibrillation: Yes Blood Disorders: No Heart Rhythm Problems: Yes Cancer: No Cardiovascular Problems: Yes (HTN) High Cholesterol: Yes Chemotherapy: No Chest Pain: No Congestive Heart Failure: No Cerebrovascular Accident: No Diabetes: Yes Diminished Hearing: No Endocrine: Yes Gastrointestinal Disorders: Yes (gastritis) Genitourinary: No Hepatitis: No Hiatal Hernia: No Hypertension: Yes Immune Disorder: No Implanted Vascular Access Dvce: Yes Musculoskeletal: Yes (scoliosis on right side) Neurologic: No Psychiatric: No Reproductive: No Respiratory: No Radiation Therapy: No Renal Failure: Yes (STAGE III) Thyroid Disease: No Past Surgical History Abdominal Surgery: Yes (SPLEENECTOMY, LEFT HERNIA ', peritoneal dialysis and hemodialysis) AICD: No Appendectomy: Yes Body Medical Devices: peritoneal tube, right vascath Cardiac Surgery: No Ear Surgery: No Endocrine Surgery: No Eye Surgery: No Genitourinary Surgery: No Gynecologic Surgery: No Joint Replacement: No Pacemaker: No Thoracic Surgery: No Other Surgery: Yes Social History Alcohol Use: No Tobacco Use: No (1958) Substance Use: No Allergies-Medications (Allergen,Severity, Reaction): Coded Allergies: No Known Allergies (Verified , 08/23/16) Reported Meds & Prescriptions Reported Meds & Active Scripts Active Nephro-Estephanie Rx (Vitamin B Cmplx/Vit C/Folic AC) 1 Tab 1 Cap PO DAILY 30 Days Quetiapine (Quetiapine Fumarate) 25 Mg Tab 25 Mg PO BID 30 Days Nifedipine ER 24 HR (Nifedipine) 60 Mg Tab 60 Mg PO BID 60 Days Fosrenol (Lanthanum Carbonate) 500 Mg Tab 1,000 Mg CHEW TID 30 Days Gabapentin 100 Mg Cap 100 Mg PO BID 60 Days Hydralazine (Hydralazine HCl) 25 Mg Tab 75 Mg PO BID Take with a meal Warfarin 7.5 Mg Tab 7.5 Mg PO TUTHSA TAKE ONE TAB (7.5 MG) TUES, , TUE Warfarin 5 Mg Tab 5 Mg PO SUMOWEFR TAKE 1 TAB (5MG) TUE, TUE, TUESDAY, TUESDAY Percocet (Oxycodone-Acetaminophen) 5-325 mg Tab 1 Tab PO Q6H PRN Reported Benazepril (Benazepril HCl) 40 Mg Tab 40 Mg PO DAILY Calcium Acetate (Phosphate Binder) 667 Mg Cap 1,334 Mg PO TID Claritin (Loratadine) 10 Mg Tab 10 Mg PO DAILY Diphenhydramine (Diphenhydramine HCl) 25 Mg Tab 25 Mg PO Q6H PRN Flomax (Tamsulosin HCl) 0.4 Mg Cap 0.4 Mg PO DAILY Fluticasone Nasal [place] 50 Mcg/Act Naspr 50 Mcg EACH NARE DAILY 50 mcg/spray Proscar (Finasteride) 5 Mg Tab 5 Mg PO DAILY Do not crush. Lipitor (Atorvastatin Calcium) 10 Mg Tab 10 Mg PO HS Review of Systems Except as stated in HPI: all other systems reviewed are Neg Physical Exam Narrative GENERAL: Well-developed elderly white male patient currently in mild distress, lethargic. Awake and oriented 3. SKIN: Focused skin assessment warm/dry. Right subclavian dialysis catheter appears to be in place. No surrounding erythema. Nontender palpation. HEAD: Atraumatic. Normocephalic. EYES: Pupils equal and round. No scleral icterus. No injection or drainage. ENT: No nasal bleeding or discharge. Mucous membranes pink and moist. NECK: Trachea midline. No JVD. CARDIOVASCULAR: Regular rate and rhythm. No murmur appreciated. RESPIRATORY: No accessory muscle use. Clear to auscultation. Breath sounds equal bilaterally. GASTROINTESTINAL: Abdomen soft, non-tender, nondistended. Hepatic and splenic margins not palpable. MUSCULOSKELETAL: No obvious deformities. No clubbing. No cyanosis. No edema. NEUROLOGICAL: Awake and alert. No obvious cranial nerve deficits. Motor grossly within normal limits. Normal speech. PSYCHIATRIC: Appropriate mood and affect; insight and judgment normal. Data Data Last Documented VS Vital Signs Date Time Temp Pulse Resp B/P Pulse Ox O2 Delivery O2 Flow Rate FiO2 08/23/16 18:49 100.1 83 20 173/79 95 Room Air Orders Electrocardiogram (08/23/16 18:38) Complete Blood Count With Diff (08/23/16 18:38) Comprehensive Metabolic Panel (08/23/16 18:38) Magnesium (Mg) (08/23/16 18:38) Ckmb (Isoenzyme) Profile (08/23/16 18:38) Troponin I (08/23/16 18:38) Urinalysis - C+S If Indicated (08/23/16 18:38) Ecg Monitoring (08/23/16 18:38) Iv Access Insert/Monitor (08/23/16 18:38) Oximetry (08/23/16 18:38) Sodium Chloride 0.9% Flush (Ns Flush) (08/23/16 18:45) Lactic Acid Sepsis Protocol (08/23/16 18:44) Blood Culture (08/23/16 18:44) Chest, Single Ap (08/23/16 18:44) Blood Glucose (08/23/16 18:44) Oxygen Administration (08/23/16 18:44) Vancomycin Inj (Vancomycin Inj) (08/23/16 18:44) Piperacil-Tazo 4.5 Gm Premix (Zosyn 4.5 (08/23/16 18:44) MDM Medical Decision Making Medical Screen Exam Complete: Yes Emergency Medical Condition: Yes Medical Record Reviewed: Yes Differential Diagnosis Fevers, shakiness, general weaknesssepsis versus metabolic issues versus worsening renal failure versus dysrhythmias versus ACS Narrative Course Considering patient's history of fever and immunosuppression, IV antibiotics were initiated after cultures are drawn as a precaution. Physician Communication Physician Communication Case is signed out to Dr. Sullivan at 7 PM pending workup. Diagnosis Primary Impression: General weakness Jerica Dan MD August 23, 2016 18:50
--- NOTE | 2016-08-23 19:13 | RADRPT ---
EXAM DATE/TIME: 08/23/2016 18:58 [facility] COMPARISON: CHEST SINGLE AP, June 30, 2016, 7:11. INDICATIONS : Left shoulder pain with numbness and twitching. Mild shortness of breath. MEDICAL HISTORY : Hypertension. Renal failure, chronic. Diabetes. Atrial fibrilation. Scoliosis SURGICAL HISTORY : Splenectomy. Appendectomy. Forerarm plate, right. Rotator cuff, right. Hernia repair, left. Dialysis port, right. ENCOUNTER: Initial ACUITY: 1 day PAIN SCORE: 6/10 LOCATION: Left shoulder FINDINGS: A single view of the chest demonstrates left basal atelectasis. Cardiomegaly. Right-sided vascular ca theter unchanged.. Osseous structures are intact. CONCLUSION: 1. Left basilar atelectasis. 2. Cardiomegaly. João Fernandez MD on August 23, 2016 at 19:10 Board Certified Radiologist. This report was verified electronically.
--- NOTE | 2016-08-23 19:13 | PD ---
Physical Exam Narrative General: The patient is a well-developed well-nourished male in no acute distress. Head and Neck exam: Head is normocephalic atraumatic. Eyes: EOMI, pupils are equal round and reactive to light. Nose: Midline septum with pink mucous membranes Mouth: Dentition unremarkable. Moist mucus membranes. Posterior oropharynx is not erythematous. No tonsillar hypertrophy. Uvula midline. Airway patent. Neck: No palpable lymphadenopathy. No nuchal rigidity. No thyromegaly. Cardiovascular: Irregularly irregular with a rate in the 70s to 80s without murmurs, gallops, or rubs. The patient has a vascular access catheter in place in the right upper chest that appears to be in good repair without any signs of erythema, edema, tenderness or drainage. Lungs: Clear to auscultation bilaterally. No wheezes, rhonchi, or rales. Abdomen: Soft, without tenderness to palpation in all 4 quadrants of the abdomen. No guarding, rebound, or rigidity. Normal bowel sounds are audible. No tenderness on palpation of McBurney's point. Extremities: No clubbing, cyanosis, or edema. 2+ pulses in all 4 extremities. Back: No spinous process tenderness to palpation. No costovertebral angle tenderness to palpation. Neurologic Exam: Cranial nerves 2-12 were intact on exam. Strength is 4/5 in all 4 extremities consistent with his generalized weakness. No sensory deficits noted. The patient is tremulous on examination. The patient reports decreased range of motion on the left shoulder related to a history of a rotator cuff injury and chronic pain in that site. Skin Exam: No rash noted. Intact skin that is warm and dry. Data Data Last Documented VS Vital Signs Date Time Temp Pulse Resp B/P Pulse Ox O2 Delivery O2 Flow Rate FiO2 08/23/16 18:49 100.1 83 20 173/79 95 Room Air Orders Electrocardiogram (08/23/16 18:38) Complete Blood Count With Diff (08/23/16 18:38) Comprehensive Metabolic Panel (08/23/16 18:38) Magnesium (Mg) (08/23/16 18:38) Ckmb (Isoenzyme) Profile (08/23/16 18:38) Troponin I (08/23/16 18:38) Urinalysis - C+S If Indicated (08/23/16 18:38) Ecg Monitoring (08/23/16 18:38) Iv Access Insert/Monitor (08/23/16 18:38) Oximetry (08/23/16 18:38) Sodium Chloride 0.9% Flush (Ns Flush) (08/23/16 18:45) Lactic Acid Sepsis Protocol (08/23/16 18:44) Blood Culture (08/23/16 18:44) Chest, Single Ap (08/23/16 18:44) Blood Glucose (08/23/16 18:44) Oxygen Administration (08/23/16 18:44) Vancomycin Inj (Vancomycin Inj) (08/23/16 18:44) Piperacil-Tazo 4.5 Gm Premix (Zosyn 4.5 (08/23/16 18:44) CKMB (08/23/16 18:50) CKMB% (08/23/16 18:50) Sodium Polysty Sulfate Liq (Kayexalate L (08/23/16 21:00) Admit Order (Ed Use Only) (08/23/16 20:53) Labs Laboratory Tests Test 08/23/16 08/23/16 18:50 20:21 White Blood Count 10.6 TH/MM3 Red Blood Count 3.34 MIL/MM3 Hemoglobin 11.1 GM/DL Hematocrit 32.8 % Mean Corpuscular Volume 98.1 FL Mean Corpuscular Hemoglobin 33.1 PG Mean Corpuscular Hemoglobin 33.8 % Concent Red Cell Distribution Width 15.2 % Platelet Count 359 TH/MM3 Mean Platelet Volume 8.9 FL Neutrophils (%) (Auto) 70.0 % Lymphocytes (%) (Auto) 10.5 % Monocytes (%) (Auto) 18.6 % Eosinophils (%) (Auto) 0.2 % Basophils (%) (Auto) 0.7 % Neutrophils # (Auto) 7.4 TH/MM3 Lymphocytes # (Auto) 1.1 TH/MM3 Monocytes # (Auto) 2.0 TH/MM3 Eosinophils # (Auto) 0.0 TH/MM3 Basophils # (Auto) 0.1 TH/MM3 CBC Comment DIFF FINAL Differential Comment Sodium Level 131 MEQ/L Potassium Level 5.7 MEQ/L Chloride Level 94 MEQ/L Carbon Dioxide Level 24.2 MEQ/L Anion Gap 13 MEQ/L Blood Urea Nitrogen 98 MG/DL Creatinine 7.59 MG/DL Estimat Glomerular Filtration 7 ML/MIN Rate Random Glucose 116 MG/DL Lactic Acid Level 0.8 mmol/L Calcium Level 10.9 MG/DL Magnesium Level 3.2 MG/DL Total Bilirubin 0.6 MG/DL Aspartate Amino Transf 19 U/L (AST/SGOT) Alanine Aminotransferase 19 U/L (ALT/SGPT) Alkaline Phosphatase 261 U/L Total Creatine Kinase 142 U/L Creatine Kinase MB 4.6 NG/ML Troponin I 0.05 NG/ML Total Protein 8.5 GM/DL Albumin 3.5 GM/DL Urine Color YELLOW Urine Turbidity CLEAR Urine pH 6.5 Urine Specific [place] 1.013 Urine Protein 300 mg/dL Urine Glucose (UA) TRACE mg/dL Urine Ketones NEG mg/dL Urine Occult Blood TRACE Urine Nitrite NEG Urine Bilirubin NEG Urine Urobilinogen LESS THAN 2.0 MG/DL Urine Leukocyte Esterase NEG Urine RBC 2 /hpf Urine WBC 4 /hpf Urine Bacteria RARE /hpf Microscopic Urinalysis Comment CULT NOT INDICATED MDM Medical Record Reviewed: Yes Supervised Visit with ELANA: No Narrative Course During the course of the patients emergency department visit, the patients history, examination, and differential diagnosis were reviewed with the patient. The patient had IV access obtained and blood work sent for analysis. The patient was placed on a dater assembler with oximetry and blood pressure monitoring. The patient's case is checked out to me by Dr. Oconnor. Please see her complete history and physical. The patient's case was checked out to me at the conclusion of her shift. The patient has a history of generalized weakness and tremulousness that he reports began today. He denies having any vomiting or diarrhea. He reports having a diminished appetite. He denies having any cough or congestion. He denies having any abdominal pain. He reports that he has a history of constipation. He is unsure when he last moved his bowels. He reports that he has not urinated for the last 2 days, however he does have a history of renal failure and is on hemodialysis. He last received his hemodialysis on Tuesday. He usually receives his hemodialysis Tuesday, , and Tuesday. The patient had an EKG done on arrival that shows evidence of atrial fibrillation, left axis deviation, no acute ST segment elevation, nonspecific ST segment changes. The patient according to the electronic medical record on review does have a history of atrial fibrillation noted, on his last EKG done in June 2016. The patient was initially provided vancomycin 1 g IV, Zosyn for broad-spectrum coverage for possible sepsis. According to the record the patient has a history of sepsis related to an infected peritoneal dialysis catheter last month. The patients laboratory studies were reviewed and remarkable for white count 10.6, hemoglobin 11.1, platelets 359, monocytes 18.6 suggestive of a viral syndrome, CMP is remarkable for sodium of 131, potassium 5.7, chloride 94, BUN 98, creatinine 7.59, glucose 116, lactic acid is 0.8, calcium 10.9, magnesium 3.2, alkaline phosphatase 261, CPK 142, troponin I 0.05, catheterized urine shows 300 protein, trace occult blood, otherwise no acute abnormality. The patient was given a dose of Kayexalate for hyperkalemia. Radiology studies were reviewed and remarkable for a left basilar atelectasis versus early infiltrate, cardiomegaly, no other acute abnormality. The patient will be admitted to the hospital for generalized weakness associated with tremulousness and a febrile illness. The patients results were discussed with the patient, including the plan of care. I explained that further testing and/ or monitoring is indicated based on the patients history, examination, and/ or laboratory findings. Therefore, I recommended admission for additional evaluation. The patient expressed understanding and was agreeable with this plan. The patient was admitted to the hospital in guarded condition and sent to a bed under the care of the [facility] hospitalist service. Physician Communication Physician Communication The patient's case was discussed with Dr. Penn who did agree to admit the patient for further evaluation and treatment at this time. Diagnosis Primary Impression: General weakness Additional Impressions: Tremulousness Febrile illness Admitting Information Admitting Physician Requests: Admit Elizabet Sullivan MD August 23, 2016 19:13
[2016-08-23 19:38] LABS: AUTOMATED NEUTROPHIL # 7.4 TH/MM3 (1.8-7.7); BASOPHIL # 0.1 TH/MM3 (0-0.2); BASOPHIL % 0.7 % (0.0-2.0); EOSINOPHIL % 0.2 % (0.0-4.0); HEMATOCRIT 32.8 % (39.0-51.0); HEMO FLAGS DIFF FINAL; LYMPH % 10.5 % (9.0-44.0); LYMPHOCYTE # 1.1 TH/MM3 (1.0-4.8); MEAN CELL VOLUME 98.1 FL (80.0-100.0); MEAN CORPUSCULAR HEMOGLOBIN 33.1 PG (27.0-34.0); MEAN CORPUSCULAR HGB CONC 33.8 % (32.0-36.0); MONO % 18.6 % (0.0-8.0); PLATELET COUNT 359 TH/MM3 (150-450); RED BLOOD COUNT 3.34 MIL/MM3 (4.50-5.90); RED CELL DISTRIBUTION WIDTH 15.2 % (11.6-17.2); WHITE BLOOD COUNT 10.6 TH/MM3 (4.0-11.0)
[2016-08-23 19:57] LABS: ANION GAP 13 MEQ/L (5-15); AST (GOT) 19 U/L (15-37); BICARBONATE 24.2 MEQ/L (21.0-32.0); BLOOD UREA NITROGEN 98 MG/DL (7-18); CHLORIDE 94 MEQ/L (98-107); GLOMERULAR FILTRATION RATE 7 ML/MIN (>89); MAGNESIUM 3.2 MG/DL (1.5-2.5); POTASSIUM 5.7 MEQ/L (3.5-5.1); SODIUM (NA) 131 MEQ/L (136-145)
[2016-08-23 20:02] LABS: ALKALINE PHOSPHATASE 261 U/L (45-117); ALT (GPT) 19 U/L (12-78); CREATINE KINASE 142 U/L (39-308); TOTAL BILIRUBIN ADULT 0.6 MG/DL (0.2-1.0)
[2016-08-23 20:14] LABS: CKMB 4.6 NG/ML (0.5-3.6)
[2016-08-23 20:31] LABS: BACTERIA, URINE RARE /hpf; BLOOD, URINE TRACE (NEG); COMMENT (UR) CULT NOT INDICATED; CULTURE IF INDICATED CULT NOT INDICATED; GLUCOSE,URINE TRACE mg/dL (NEG); KETONE, URINE NEG (NEG); NITRITE,URINE NEG (NEG); PH, URINE 6.5 (5.0-8.5); URINE COLOR YELLOW (YELLW/STRAW)
[2016-08-23] MEDS ORDERED: SODIUM POLYSTYRENE SULFONATE SUSP 15 GM/60 ML CUP PO ONE (21:00)
--- NOTE | 2016-08-23 21:44 | HHI.HP ---
HPI Service [facility] Hospitalists Primary Care Physician Nikolai Carrasquillo M.D. 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 He was admitted for peritonitis from peritoneal dialysis and sepsis, had the peritoneal dialysis catheter removed and is currently getting dialyzed through a temporary catheter each , , . He is here because he has had several days ' history of subjective fevers, chills, and shakiness, not able to stand up according to patient's . He denies any chest pains, coughing, fevers, abdominal pains, or other symptoms. It is noted that his gabapentin was recently increased to TID and that he had tremors that last time his dose was increased to TID as well. The LE weakness is new for him and has been more notable today. He was able to transfer this AM, but was unable to stand as the day progressed. No recent trauma, but has chronic pain in left shoulder from rotator cuff injury. Reportedly was doing some outside work on a trailer this past / and may have reinjured his left shoulder by pulling on some drawers underneath the trailer. Labs noted for mild hyperkalemia, chronically elevated BUN/Cr and mild elevation of Mg, alk phos. Review of Systems Constitutional: COMPLAINS OF: Fatigue, Fever, Chills, DENIES: Diaphoretic episodes, Weight gain, Weight loss, Dizziness, Change in appetite, Night Sweats Endocrine: DENIES: Heat/cold intolerance, Polydipsia, Polyuria, Polyphagia Eyes: DENIES: Blurred vision, Diplopia, Eye inflammation, Eye pain, Vision loss , Photosensitivity, Double Vision Ears, nose, mouth, throat: DENIES: Tinnitus, Hearing loss, Vertigo, Nasal discharge, Oral lesions, Throat pain, Hoarseness, Ear Pain, Running Nose, Epistaxis, Sinus Pain, Toothache, Odynophagia Respiratory: DENIES: Apneas, Cough, Snoring, Wheezing, Hemoptysis, Sputum production, Shortness of breath Cardiovascular: DENIES: Chest pain, Palpitations, Syncope, Dyspnea on Exertion , PND, Lower Extremity Edema, Orthopnea, Claudication Gastrointestinal: DENIES: Abdominal pain, Black stools, Bloody stools, BRB per rectum, Constipation, Diarrhea, GERD, Nausea, Reflux, Vomiting, Difficulty Swallowing, Anorexia, See HPI Musculoskeletal: COMPLAINS OF: Joint pain, Back pain Integumentary: DENIES: Abnormal pigmentation, Nail changes, Pruritus, Rash Hematologic/lymphatic: DENIES: Bruising, Lymphadenopathy Immunologic/allergic: DENIES: Eczema, Urticaria Neurologic: COMPLAINS OF: Abnormal gait, Tremor, Poor Balance Psychiatric: COMPLAINS OF: Anxiety Past Family Social History Past Medical History End-stage renal disease failed PD and now on HD Hypertension Atrial fibrillation Anemia of chronic renal disease. Diabetes mellitus Coronary artery disease Dyslipidemia Mild peripheral vascular disease by Doppler by history Hyperphosphatemia BPH Previous left renal cell carcinoma status post cryoablation in 2014 Past Surgical History Appendectomy splenectomy Placement of a peritoneal dialysis catheter Placement of PermCath (05/10/16) Removal of peritoneal cath 06/2016 Reported Medications Nephro-Estephanie Rx (Vitamin B Cmplx/Vit C/Folic AC) 1 Tab 1 Cap PO DAILY 30 Days Quetiapine (Quetiapine Fumarate) 25 Mg Tab 25 Mg PO BID 30 Days Nifedipine ER 24 HR (Nifedipine) 60 Mg Tab 60 Mg PO BID 60 Days Fosrenol (Lanthanum Carbonate) 500 Mg Tab 1,000 Mg CHEW TID 30 Days Gabapentin 100 Mg Cap 100 Mg PO BID 60 Days Hydralazine (Hydralazine HCl) 25 Mg Tab 75 Mg PO BID Take with a meal Warfarin 7.5 Mg Tab 7.5 Mg PO TUTHSA TAKE ONE TAB (7.5 MG) , , TUE Warfarin 5 Mg Tab 5 Mg PO SUMOWEFR TAKE 1 TAB (5MG) TUE, TUE, TUESDAY, TUESDAY Percocet (Oxycodone-Acetaminophen) 5-325 mg Tab 1 Tab PO Q6H PRN Benazepril (Benazepril HCl) 40 Mg Tab 40 Mg PO DAILY Calcium Acetate (Phosphate Binder) 667 Mg Cap 1,334 Mg PO TID Claritin (Loratadine) 10 Mg Tab 10 Mg PO DAILY Diphenhydramine (Diphenhydramine HCl) 25 Mg Tab 25 Mg PO Q6H PRN Flomax (Tamsulosin HCl) 0.4 Mg Cap 0.4 Mg PO DAILY Fluticasone Nasal [place] 50 Mcg/Act Naspr 50 Mcg EACH NARE DAILY 50 mcg/spray Proscar (Finasteride) 5 Mg Tab 5 Mg PO DAILY Do not crush. 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 No tobacco in 50 yrs, smoked for short time in late teens No EtOH in 4 yrs, but drank heavily prior Denies Illicits Originally from [facility] has 6 adult children all live [place] Physical Exam Vital Signs Vital Signs Date Time Temp Pulse Resp B/P Pulse Ox O2 Delivery O2 Flow Rate FiO2 08/23/16 18:49 100.1 83 20 173/79 95 Room Air 08/23/16 18:48 20 95 Room Air 08/23/16 16:05 100.3 78 20 152/76 94 Room Air Physical Exam GENERAL: This is a well-nourished, well-developed patient, in no apparent distress. a/o. cooperative with exam SKIN: No rashes, ecchymoses or lesions. Cool and dry. slight hyperpigmented hue to upper chest, face. Permacath in right upper chest with no apparent redness, warmth or ttp. HEAD: Atraumatic. Normocephalic. No temporal or scalp tenderness. EYES: Pupils equal round and reactive. Extraocular motions intact. No scleral icterus. No injection or drainage. ENT: Nose without bleeding, purulent drainage or septal hematoma. Airway patent. NECK: Trachea midline. No JVD or lymphadenopathy. Supple, nontender, no meningeal signs. CARDIOVASCULAR: irreg with 1/6 THIERRY at LSB, no gallops, or rubs. RESPIRATORY: Clear to auscultation. Breath sounds equal bilaterally. No wheezes , rales, or rhonchi. GASTROINTESTINAL: Abdomen soft, non-tender, nondistended. No hepato-splenomegaly , or palpable masses. No guarding. BS wnl. MUSCULOSKELETAL: Extremities without clubbing, cyanosis. 1+ edema in feet ( improved per pt) left shoulder with +apprehension test, +drop test and ttp over lateral deltoid, no increased redness or warmth; No calf tenderness. NEUROLOGICAL: Awake and alert. Cranial nerves II through XII intact. Motor and sensory grossly within normal limits. 4.5/5 muscle strength in all muscle groups. DTR 1+ bilat knees. Normal speech. Laboratory Laboratory Tests Test 08/23/16 08/23/16 18:50 20:21 White Blood Count 10.6 Red Blood Count 3.34 Hemoglobin 11.1 Hematocrit 32.8 Mean Corpuscular Volume 98.1 Mean Corpuscular Hemoglobin 33.1 Mean Corpuscular Hemoglobin 33.8 Concent Red Cell Distribution Width 15.2 Platelet Count 359 Mean Platelet Volume 8.9 Neutrophils (%) (Auto) 70.0 Lymphocytes (%) (Auto) 10.5 Monocytes (%) (Auto) 18.6 Eosinophils (%) (Auto) 0.2 Basophils (%) (Auto) 0.7 Neutrophils # (Auto) 7.4 Lymphocytes # (Auto) 1.1 Monocytes # (Auto) 2.0 Eosinophils # (Auto) 0.0 Basophils # (Auto) 0.1 CBC Comment DIFF FINAL Differential Comment Sodium Level 131 Potassium Level 5.7 Chloride Level 94 Carbon Dioxide Level 24.2 Anion Gap 13 Blood Urea Nitrogen 98 Creatinine 7.59 Estimat Glomerular Filtration 7 Rate Random Glucose 116 Lactic Acid Level 0.8 Calcium Level 10.9 Magnesium Level 3.2 Total Bilirubin 0.6 Aspartate Amino Transf 19 (AST/SGOT) Alanine Aminotransferase 19 (ALT/SGPT) Alkaline Phosphatase 261 Total Creatine Kinase 142 Creatine Kinase MB 4.6 Troponin I 0.05 Total Protein 8.5 Albumin 3.5 Urine Color YELLOW Urine Turbidity CLEAR Urine pH 6.5 Urine Specific [place] 1.013 Urine Protein 300 Urine Glucose (UA) TRACE Urine Ketones NEG Urine Occult Blood TRACE Urine Nitrite NEG Urine Bilirubin NEG Urine Urobilinogen LESS THAN 2.0 Urine Leukocyte Esterase NEG Urine RBC 2 Urine WBC 4 Urine Bacteria RARE Microscopic Urinalysis Comment CULT NOT INDICATED Date/Time Procedure Status Source Growth 08/23/16 18:50 Aerobic Blood Culture Received Blood Peripheral Pending 08/23/16 18:50 Anaerobic Blood Culture Received Blood Peripheral Pending Result Diagram: 08/23/16184908/23/16 185 Imaging Last 72 hours Impressions Chest X-Ray 08/23/16 1844 Signed Impressions: Service Date/Time: Tuesday, August 23, 2016 18:58 - CONCLUSION: 1. Left basilar atelectasis. 2. Cardiomegaly. João Fernandez MD Assessment and Plan Problem List: (1) General weakness Status: Acute Plan: ? etiology. Possibly associated with recent gabapentin dose alteration +/ - electrolyte abn +/- infectious process. Will monitor pt and labs. No focal deficits on exam Doubt GBS, but has LGF from possible viral infection (2) Febrile illness Status: Acute Plan: ? etiology. Possibly viral given monocyte elevation. Will follow has been given iv abx. (3) ESRD (end stage renal disease) on dialysis Status: Chronic Plan: HD , , Neph consult (4) Acute hyperkalemia Status: Acute Plan: Kayexalate given. Tele Recheck. HD tomorrow. (5) Atrial fibrillation Status: Chronic Plan: rate controlled. continue warfarin (6) HTN (hypertension) Status: Chronic Plan: Somewhat difficult to control in the past. continue meds Code Status full Discussed Condition With Pt, his and ER MD Physician Certification 2 Midnight Certification Type: Admission for Inpatient Services Order for Inpatient Services The services are ordered in accordance with Medicare regulations or non- Medicare payer requirements, as applicable. In the case of services not specified as inpatient-only, they are appropriately provided as inpatient services in accordance with the 2-midnight benchmark. Estimated LOS (days): 2 days is the estimated time the patient will need to remain in the hospital, assuming treatment plan goals are met and no additional complications. Post-Hospital Plan: Home Julian Penn MD PhD August 23, 2016 21:44
[2016-08-23] MEDS ORDERED: oxyCODONE/ACETAMINOPHEN 5 MG/325 MG TAB PO PRN (21:45)
[2016-08-23] MEDS ORDERED: ACETAMINOPHEN 500 MG CPLT PO PRN (21:45)
[2016-08-23] MEDS ORDERED: cloNIDine HCL 0.1 MG TAB PO PRN (22:00)
[2016-08-23 22:02] VITALS: BP 162/72; PULSE 73; RESP 18; O2SAT 97
[2016-08-23 23:16] LABS: INTERNATIONAL NORMALIZED RATIO 1.7 RATIO; PROTHROMBIN TIME - PATIENT 19.4 SEC (9.8-11.6)
[2016-08-24] VITALS (10 sets, daily range): BP systolic 113–178; BP diastolic 56–72; PULSE 71–101; RESP 17–20; TEMP 97–100.3; O2SAT 94–98
[2016-08-24 08:14] LABS: ALKALINE PHOSPHATASE 212 U/L (45-117); ALT (GPT) 16 U/L (12-78); ANION GAP 14 MEQ/L (5-15); AST (GOT) 18 U/L (15-37); BICARBONATE 20.8 MEQ/L (21.0-32.0); BLOOD UREA NITROGEN 104 MG/DL (7-18); CHLORIDE 98 MEQ/L (98-107); GLOMERULAR FILTRATION RATE 7 ML/MIN (>89); POTASSIUM 5.8 MEQ/L (3.5-5.1); SODIUM (NA) 133 MEQ/L (136-145); TOTAL BILIRUBIN ADULT 0.6 MG/DL (0.2-1.0)
[2016-08-24] MEDS: GABAPENTIN 100 MG CAP PO SCH ×2 (08:17→21:17)
[2016-08-24] MEDS: NIFEdipine 60 MG SUSTAINED RELEASE TAB PO SCH ×2 (08:18→21:17)
[2016-08-24] MEDS: hydrALAZINE HCL 25 MG TAB PO SCH ×2 (08:18→21:17)
[2016-08-24] MEDS: QUEtiapine FUMARATE 25 MG TAB PO SCH ×2 (08:18→21:17)
[2016-08-24] MEDS: TAMSULOSIN HCL 0.4 MG CAP PO SCH (08:18)
[2016-08-24] MEDS: FINASTERIDE 5 MG TAB PO SCH (08:19)
[2016-08-24] MEDS ORDERED: CALCIUM ACETATE 667 MG CAP PO SCH (09:00)
[2016-08-24] MEDS ORDERED: MANNITOL 12.5 GM/50 ML VIAL IV PRN (09:15)
[2016-08-24] MEDS ORDERED: HEPARIN SODIUM - IV 10,000 UNITS/10 ML VIAL IVF PRN (09:15)
[2016-08-24] MEDS ORDERED: SODIUM CHLOR 0.9% 1000 ML INJ 1,000 ML IV PRN ×2 (09:15)
[2016-08-24] MEDS ORDERED: diphenhydrAMINE HCL 25 MG CAP PO PRN (09:15)
[2016-08-24] MEDS ORDERED: GELATIN 12 MM/7 MM FOAM TOP PRN (09:15)
[2016-08-24] MEDS ORDERED: VANCOMYCIN INJ 1,000 MG in SODIUM CHLOR 0.9% 250 ML INJ 250 ML IV ONE (09:15)
[2016-08-24] MEDS ORDERED: SODIUM CHLORIDE 0.9% FLUSH 10 ML FLUSH IV FLUSH PRN (09:15)
[2016-08-24] MEDS ORDERED: cloNIDine HCL 0.1 MG TAB PO PRN (09:15)
[2016-08-24] MEDS ORDERED: ONDANSETRON HCL 4 MG/2 ML VIAL IV PRN (09:15)
[2016-08-24] MEDS ORDERED: NITROGLYCERIN 0.4 MG SL 25 TABS/BTL SL PRN (09:15)
--- NOTE | 2016-08-24 10:46 | HHI.PR ---
Subjective Remarks Pt feels that the shaking has improved slightly He complains mostly of pain in the left shoulder. He always has baseline pain from a torn rotator cuff but after he was cleaning out a trailer on Tuesday the pain worsened. You cannot even touch the upper arm or shoulder without him wincing in pain. There does seem to be some spasm of the muscles on the left upper arm and shoulder He states that the shaking of the UE began slightly Tuesday but worsened Tuesday and he began feeling quite weak His reports that he was unable to urinate Tuesday but has urinated some small amount since admission. Pt was noted to be febrile at admission but no fevers so far today He states that he did not sleep well and it quite tired today. Objective Vitals Vital Signs Date Time Temp Pulse Resp B/P Pulse Ox O2 Delivery O2 Flow Rate FiO2 08/24/16 09:24 98 Nasal Cannula 2.00 08/24/16 07:36 98.7 71 18 149/66 94 08/24/16 04:15 99.0 77 17 156/68 97 08/24/16 00:27 99.5 80 17 178/70 94 08/23/16 22:02 73 18 162/72 97 Room Air 08/23/16 18:49 100.1 83 20 173/79 95 Room Air 08/23/16 18:48 20 95 Room Air 08/23/16 16:05 100.3 78 20 152/76 94 Room Air 08/23/16 08/23/16 08/24/16 15:00 23:00 07:00 Output Total 300 ml Balance -300 ml Output Urine Total 300 ml Result Diagram: 08/23/16 18508/24/16 0705 Other Results Laboratory Tests Test 08/23/16 08/23/16 08/23/16 08/24/16 18:50 20:21 22:17 07:05 White Blood Count 10.6 TH/MM3 Red Blood Count 3.34 MIL/MM3 Hemoglobin 11.1 GM/DL Hematocrit 32.8 % Mean Corpuscular Volume 98.1 FL Mean Corpuscular Hemoglobin 33.1 PG Mean Corpuscular Hemoglobin 33.8 % Concent Red Cell Distribution Width 15.2 % Platelet Count 359 TH/MM3 Mean Platelet Volume 8.9 FL Neutrophils (%) (Auto) 70.0 % Lymphocytes (%) (Auto) 10.5 % Monocytes (%) (Auto) 18.6 % Eosinophils (%) (Auto) 0.2 % Basophils (%) (Auto) 0.7 % Neutrophils # (Auto) 7.4 TH/MM3 Lymphocytes # (Auto) 1.1 TH/MM3 Monocytes # (Auto) 2.0 TH/MM3 Eosinophils # (Auto) 0.0 TH/MM3 Basophils # (Auto) 0.1 TH/MM3 CBC Comment DIFF FINAL Differential Comment Sodium Level 131 MEQ/L 133 MEQ/L Potassium Level 5.7 MEQ/L 5.8 MEQ/L Chloride Level 94 MEQ/L 98 MEQ/L Carbon Dioxide Level 24.2 MEQ/L 20.8 MEQ/L Anion Gap 13 MEQ/L 14 MEQ/L Blood Urea Nitrogen 98 MG/DL 104 MG/DL Creatinine 7.59 MG/DL 8.13 MG/DL Estimat Glomerular Filtration 7 ML/MIN 7 ML/MIN Rate Random Glucose 116 MG/DL 106 MG/DL Lactic Acid Level 0.8 mmol/L Calcium Level 10.9 MG/DL 10.4 MG/DL Magnesium Level 3.2 MG/DL Total Bilirubin 0.6 MG/DL 0.6 MG/DL Aspartate Amino Transf 19 U/L 18 U/L (AST/SGOT) Alanine Aminotransferase 19 U/L 16 U/L (ALT/SGPT) Alkaline Phosphatase 261 U/L 212 U/L Total Creatine Kinase 142 U/L Creatine Kinase MB 4.6 NG/ML Troponin I 0.05 NG/ML Total Protein 8.5 GM/DL 7.3 GM/DL Albumin 3.5 GM/DL 2.8 GM/DL Urine Color YELLOW Urine Turbidity CLEAR Urine pH 6.5 Urine Specific [place] 1.013 Urine Protein 300 mg/dL Urine Glucose (UA) TRACE mg/dL Urine Ketones NEG mg/dL Urine Occult Blood TRACE Urine Nitrite NEG Urine Bilirubin NEG Urine Urobilinogen LESS THAN 2.0 MG/DL Urine Leukocyte Esterase NEG Urine RBC 2 /hpf Urine WBC 4 /hpf Urine Bacteria RARE /hpf Microscopic Urinalysis Comment CULT NOT INDICATED Prothrombin Time 19.4 SEC Prothromb Time International 1.7 RATIO Ratio C-Reactive Protein 20.00 MG/DL Imaging Last 72 hours Impressions Chest X-Ray 08/23/16 6929 Signed Impressions: Service Date/Time: Tuesday, August 23, 2016 18:58 - CONCLUSION: 1. Left basilar atelectasis. 2. Cardiomegaly. João Fernandez MD Objective Remarks General: NAD, Lethargic but awakens easily Chest: CTA Cardiac: Regular Abd: +BS, soft ND/NT Ext: LUE pain with minimal palpation of the upper arm and shoulder and unwilling to move the LUE. Some tremors noted in bilateral UE A/P Problem List: (1) General weakness Status: Acute Plan: - Pt admitted with a 1-2 day history of tremors in the UE only, generalized weakness and increased left shoulder pain. - He was noted to have a fever of 101 degrees at admission but a normal WBC count - Etiology of these symptoms is unclear. - Pt had recently started on an increased dose of his gabapentin and when his dose was increased to TID dosing previously he had similar issues with tremors. - Pt was also noted to have electrolyte abnormalities at admission and will be undergoing HD today. - No obvious infectious process. - Blood cultures and Urine culture are pending. - Pt was given Vancomycin and Zosyn in the ED. - He will be receiving Vancomycin with Dialysis today as well. - Will monitor pt and labs. No focal deficits on exam (2) Febrile illness Status: Acute Plan: - Etiology unclear. - Possibly viral given monocyte elevation. - CRP is significantly elevated at 20.0 - Await blood cultures and urine culture - See above. (3) ESRD (end stage renal disease) on dialysis Status: Chronic Plan: - Appreciate nephrology consult. - HD , , (4) Acute hyperkalemia Status: Acute Plan: - Kayexalate was given following admission. - K+ still elevated today. - Recheck after dialysis today - Tele (5) Atrial fibrillation Status: Chronic Plan: - Rate controlled. - Continue warfarin, - INR subtherapeutic, monitor daily (6) HTN (hypertension) Status: Chronic Plan: Somewhat difficult to control in the past. continue meds Assessment and Plan Patient examined. Assessment and plan formulated with Verito Gallagher PA-C. I agree with the above. fever. evaluate for bacteremia and line infection abx initiated. more lethargic now and intermittent tremor. lower gabapentin back down. he had a percocet before lethargy started. going for HD now and more iv abx. ICU if needed. concern for metabolic encepalopathy/uremia image shoulder. severe left shoulder pain. Verito Gallagher August 24, 2016 10:46 Javy Hudson MD August 24, 2016 13:45
[2016-08-24] MEDS: VITAMIN B CMPLX/VITC/FOLIC AC CAP PO SCH (10:57)
[2016-08-24] MEDS: FLUTICASONE PROPIONATE 50 MCG/ACT 16 GM NASAL SPRAY EACH NARE SCH (10:57)
[2016-08-24] MEDS: LANTHANUM CARBONATE 500 MG CHEWABLE TABLET CHEW SCH ×3 (10:58→18:16)
--- NOTE | 2016-08-24 11:19 | PD.CONS ---
[facility] Service Nephrology Consult Requested By Dr. Penn Reason for Consult ESRD on HD. Dialysis management Primary Care Physician Nikolai Carrasquillo M.D. History of Present Illness The patient is a 75 yo [place] male who is known to our outpatient services for ESRD on dialysis. Was brought to the ED yesterday evening by his who noted that he has had tremors, fatigue, and low grade fever. The patient himself is obtunded at the present as he has just received pain medications, so history is obtained via other records and outpatient dialysis facility. According to charts, his Gabapentin was recently increased from once daily to TID and seems to coincide with symptoms. He dialyzes TTS as outpatient and has not missed any sessions. According to outpatient nurse, he has had no events during recent dialysis sessions including no rigors or fever. He does have RIJ PermCath and was scheduled for outpatient consultation for AVF placement tomorrow. Review of Systems ROS Limitations: Clinical Condition Past Family Social History Allergies: Coded Allergies: No Known Allergies (Verified , 08/23/16) Past Medical History End-stage renal disease failed PD and now converting to HD Hypertension Anemia renal disease. 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 Placement of a peritoneal dialysis catheter Placement of RIJ PermCath Reported Medications Active Nephro-Estephanie Rx (Vitamin B Cmplx/Vit C/Folic AC) 1 Tab 1 Cap PO DAILY 30 Days Quetiapine (Quetiapine Fumarate) 25 Mg Tab 25 Mg PO BID 30 Days Nifedipine ER 24 HR (Nifedipine) 60 Mg Tab 60 Mg PO BID 60 Days Fosrenol (Lanthanum Carbonate) 500 Mg Tab 1,000 Mg CHEW TID 30 Days Gabapentin 100 Mg Cap 100 Mg PO BID 60 Days Hydralazine (Hydralazine HCl) 25 Mg Tab 75 Mg PO BID Take with a meal Warfarin 7.5 Mg Tab 7.5 Mg PO TUTHSA TAKE ONE TAB (7.5 MG) ES, TH, TUE Warfarin 5 Mg Tab 5 Mg PO SUMOWEFR TAKE 1 TAB (5MG) MON, WED, TUESDAY, TUESDAY Percocet (Oxycodone-Acetaminophen) 5-325 mg Tab 1 Tab PO Q6H PRN Reported Benazepril (Benazepril HCl) 40 Mg Tab 40 Mg PO DAILY Calcium Acetate (Phosphate Binder) 667 Mg Cap 1,334 Mg PO TID Diphenhydramine (Diphenhydramine HCl) 25 Mg Tab 25 Mg PO Q6H PRN Flomax (Tamsulosin HCl) 0.4 Mg Cap 0.4 Mg PO DAILY Fluticasone Nasal [place] 50 Mcg/Act Naspr 50 Mcg EACH NARE DAILY 50 mcg/spray Proscar (Finasteride) 5 Mg Tab 5 Mg PO DAILY Do not crush. Lipitor (Atorvastatin Calcium) 10 Mg Tab 10 Mg PO HS Active Ordered Medications Current Medications Medications (Trade) Dose Ordered Sig/Terra Route Start Time Stop Time Status Last Admin (NS Flush) 2 ml UNSCH PRN IVF 08/23/16 18:45 (Tylenol) 500 mg Q6H PRN PO 08/23/16 21:45 (Lipitor) 10 mg HS PO 08/24/16 21:00 (Phoslo) 1,334 mg TID PO 08/24/16 09:00 08/24/16 08:17 (Proscar) 5 mg DAILY PO 08/24/16 09:00 08/24/16 08:19 (Flonase Mario Spr) 1 spray DAILY EACH NARE 08/24/16 09:00 08/24/16 10:57 (Neurontin) 100 mg BID PO 08/24/16 09:00 08/24/16 08:17 (Apresoline) 75 mg BID PO 08/24/16 09:00 08/24/16 08:18 (Fosrenol Chew) 1,000 mg TID CHEW 08/24/16 09:00 08/24/16 10:58 (Procardia Xl) 60 mg BID PO 08/24/16 09:00 08/24/16 08:18 (Percocet 5-325 Mg) 1 tab Q6H PRN PO 08/23/16 21:45 08/24/16 09:49 (SEROquel) 25 mg BID PO 08/24/16 09:00 08/24/16 08:18 (Flomax) 0.4 mg DAILY PO 08/24/16 09:00 08/24/16 08:18 (Nephrocaps) 1 cap DAILY PO 08/24/16 09:00 08/24/16 10:57 (Coumadin) 6 mg DAILY@16 PO 08/24/16 16:00 Clonidine 0.1 mg 0.1 mg Q6H PRN PO 08/23/16 22:00 (NS 1000 ml Inj) 1,000 ml @ 0 mls/hr Q0M PRN IV 08/24/16 09:15 Heparin Sodium (Porcine) 8000 units 8,000 units UNSCH PRN IVF 08/24/16 09:15 Sodium Chloride 1,000 ml @ 200 mls/hr Q5H PRN IV 08/24/16 09:15 (NS 1000 ml Inj) 1,000 ml @ 0 mls/hr Q0M PRN IV 08/24/16 09:15 (Mannitol Inj) 12.5 gm UNSCH PRN IV 08/24/16 09:15 (Albumin 25% Inj) 25 gm UNSCH PRN IV 08/24/16 09:15 (NS Flush) 5 ml UNSCH PRN IV FLUSH 08/24/16 09:15 (Heparin Inj) UNSCH PRN .XX 08/24/16 09:15 (Gentamicin (Dialysis) Inj) 20 mg UNSCH PRN IV 08/24/16 09:15 (Zofran Inj) 4 mg UNSCH PRN IV 08/24/16 09:15 (Tylenol) 650 mg UNSCH PRN PO 08/24/16 09:15 (Benadryl) 25 mg UNSCH PRN PO 08/24/16 09:15 (Nitrostat Sl) 0.4 mg UNSCH PRN SL 08/24/16 09:15 (Catapres) 0.1 mg UNSCH PRN PO 08/24/16 09:15 (Gelfoam 12 Mm/7 Mm Top) 1 foam UNSCH PRN TOP 08/24/16 09:15 Family History NC Social History Lives at home with . Denies tob, illicits, EtOH Physical Exam Vital Signs Vital Signs Date Time Temp Pulse Resp B/P Pulse Ox O2 Delivery O2 Flow Rate FiO2 08/24/16 10:49 16 08/24/16 09:24 98 Nasal Cannula 2.00 08/24/16 07:36 98.7 71 18 149/66 94 08/24/16 04:15 99.0 77 17 156/68 97 08/24/16 00:27 99.5 80 17 178/70 94 08/23/16 22:02 73 18 162/72 97 Room Air 08/23/16 18:49 100.1 83 20 173/79 95 Room Air 08/23/16 18:48 20 95 Room Air 08/23/16 16:05 100.3 78 20 152/76 94 Room Air Physical Exam GENERAL: Drowsy. NAD SKIN: Warm and dry. HEAD: Atraumatic. Normocephalic. EYES: Pupils equal and round. No scleral icterus. No injection or drainage. ENT: No nasal bleeding or discharge. Mucous membranes pink and moist. NECK: Trachea midline. No JVD. CARDIOVASCULAR: Regular rate and rhythm. RESPIRATORY: No accessory muscle use. Clear to auscultation. Breath sounds equal bilaterally. GASTROINTESTINAL: Abdomen soft, non-tender, nondistended. Hepatic and splenic margins not palpable. MUSCULOSKELETAL: Extremities without clubbing, cyanosis, or edema. No obvious deformities. NEUROLOGICAL: Drowsy, difficult to assess PSYCHIATRIC: Drowsy, difficult to assess Laboratory Laboratory Tests Test 08/23/16 08/23/16 08/23/16 08/24/16 18:50 20:21 22:17 07:05 White Blood Count 10.6 Red Blood Count 3.34 Hemoglobin 11.1 Hematocrit 32.8 Mean Corpuscular Volume 98.1 Mean Corpuscular Hemoglobin 33.1 Mean Corpuscular Hemoglobin 33.8 Concent Red Cell Distribution Width 15.2 Platelet Count 359 Mean Platelet Volume 8.9 Neutrophils (%) (Auto) 70.0 Lymphocytes (%) (Auto) 10.5 Monocytes (%) (Auto) 18.6 Eosinophils (%) (Auto) 0.2 Basophils (%) (Auto) 0.7 Neutrophils # (Auto) 7.4 Lymphocytes # (Auto) 1.1 Monocytes # (Auto) 2.0 Eosinophils # (Auto) 0.0 Basophils # (Auto) 0.1 CBC Comment DIFF FINAL Differential Comment Sodium Level 131 133 Potassium Level 5.7 5.8 Chloride Level 94 98 Carbon Dioxide Level 24.2 20.8 Anion Gap 13 14 Blood Urea Nitrogen 98 104 Creatinine 7.59 8.13 Estimat Glomerular Filtration 7 7 Rate Random Glucose 116 106 Lactic Acid Level 0.8 Calcium Level 10.9 10.4 Magnesium Level 3.2 Total Bilirubin 0.6 0.6 Aspartate Amino Transf 19 18 (AST/SGOT) Alanine Aminotransferase 19 16 (ALT/SGPT) Alkaline Phosphatase 261 212 Total Creatine Kinase 142 Creatine Kinase MB 4.6 Troponin I 0.05 Total Protein 8.5 7.3 Albumin 3.5 2.8 Urine Color YELLOW Urine Turbidity CLEAR Urine pH 6.5 Urine Specific [place] 1.013 Urine Protein 300 Urine Glucose (UA) TRACE Urine Ketones NEG Urine Occult Blood TRACE Urine Nitrite NEG Urine Bilirubin NEG Urine Urobilinogen LESS THAN 2.0 Urine Leukocyte Esterase NEG Urine RBC 2 Urine WBC 4 Urine Bacteria RARE Microscopic Urinalysis Comment CULT NOT INDICATED Prothrombin Time 19.4 Prothromb Time International 1.7 Ratio C-Reactive Protein 20.00 Date/Time Procedure Status Source Growth 08/23/16 18:50 Aerobic Blood Culture Received Blood Peripheral Pending 08/23/16 18:50 Anaerobic Blood Culture Received Blood Peripheral Pending Result Diagram: 08/23/16 1850 08/24/16 0705 Imaging Last Impressions Chest X-Ray 08/23/16 1844 Signed Impressions: Service Date/Time: Tuesday, August 23, 2016 18:58 - CONCLUSION: 1. Left basilar atelectasis. 2. Cardiomegaly. João Fernandez MD Assessment and Plan Problem List: (1) ESRD (end stage renal disease) on dialysis Plan: HD as scheduled today. BCx ordered and are pending. Vanc with treatment today. Continue on TTS schedule Medications should be adjusted for the patient's ESRD. Avoid gadolinium. (2) HTN (hypertension) Plan: Continue on home regimen (3) General weakness Plan: Unclear etiology. BCx and UCx pending. Potentially medication related? (4) Tremulousness Plan: Potentially related to increased Gabapentin use. Maximum daily dose of 300mg/24h or less depending on side effects. (5) Hypercalcemia Plan: Both PhosLo and Fosrenol listed as home medication. D/C PhosLo. Continue on Fosrenol. Check iPTH & Vit D levels Isis Herman August 24, 2016 11:19
--- NOTE | 2016-08-24 13:23 | EKG ---
Date Performed: 08/23/2016 Time Performed: 19:14:53 PTAGE: 75 years EKG: ATRIAL FIBRILLATION MARKED LEFT AXIS DEVIATION NONSPECIFIC ST & T-WAVE ABNORMALITY ABNORMAL ECG PREVIOUS TRACING : 06/29/2016 10.59 Compared to prior tracing no significant change DOCTOR: Yimi Knight Interpretating Date/Time 08/24/2016 13:21:56
[2016-08-24] MEDS: ALBUMIN HUMAN 25% 25 GM/100 ML BAGP IV PRN (14:16)
[2016-08-24] MEDS: WARFARIN SOD 6 MG TAB PO SCH (16:00)
--- NOTE | 2016-08-24 17:23 | PD.CONS ---
HPI Consult Requested By Primary Care Physician Nikolai Carrasquillo M.D. Past Family Social History Allergies: Coded Allergies: No Known Allergies (Verified , 08/23/16) Physical Exam Vital Signs Vital Signs Date Time Temp Pulse Resp B/P Pulse Ox O2 Delivery O2 Flow Rate FiO2 08/24/16 13:15 97.0 72 20 124/59 97 08/24/16 11:24 98.9 78 18 113/56 94 08/24/16 10:49 16 08/24/16 09:24 98 Nasal Cannula 2.00 08/24/16 07:36 98.7 71 18 149/66 94 08/24/16 04:15 99.0 77 17 156/68 97 08/24/16 00:27 99.5 80 17 178/70 94 08/23/16 22:02 73 18 162/72 97 Room Air 08/23/16 18:49 100.1 83 20 173/79 95 Room Air 08/23/16 18:48 20 95 Room Air Laboratory Laboratory Tests Test 08/23/16 08/23/16 08/23/16 08/24/16 18:50 20:21 22:17 07:05 White Blood Count 10.6 Red Blood Count 3.34 Hemoglobin 11.1 Hematocrit 32.8 Mean Corpuscular Volume 98.1 Mean Corpuscular Hemoglobin 33.1 Mean Corpuscular Hemoglobin 33.8 Concent Red Cell Distribution Width 15.2 Platelet Count 359 Mean Platelet Volume 8.9 Neutrophils (%) (Auto) 70.0 Lymphocytes (%) (Auto) 10.5 Monocytes (%) (Auto) 18.6 Eosinophils (%) (Auto) 0.2 Basophils (%) (Auto) 0.7 Neutrophils # (Auto) 7.4 Lymphocytes # (Auto) 1.1 Monocytes # (Auto) 2.0 Eosinophils # (Auto) 0.0 Basophils # (Auto) 0.1 CBC Comment DIFF FINAL Differential Comment Sodium Level 131 133 Potassium Level 5.7 5.8 Chloride Level 94 98 Carbon Dioxide Level 24.2 20.8 Anion Gap 13 14 Blood Urea Nitrogen 98 104 Creatinine 7.59 8.13 Estimat Glomerular Filtration 7 7 Rate Random Glucose 116 106 Lactic Acid Level 0.8 Calcium Level 10.9 10.4 Magnesium Level 3.2 Total Bilirubin 0.6 0.6 Aspartate Amino Transf 19 18 (AST/SGOT) Alanine Aminotransferase 19 16 (ALT/SGPT) Alkaline Phosphatase 261 212 Total Creatine Kinase 142 Creatine Kinase MB 4.6 Troponin I 0.05 Total Protein 8.5 7.3 Albumin 3.5 2.8 Urine Color YELLOW Urine Turbidity CLEAR Urine pH 6.5 Urine Specific [place] 1.013 Urine Protein 300 Urine Glucose (UA) TRACE Urine Ketones NEG Urine Occult Blood TRACE Urine Nitrite NEG Urine Bilirubin NEG Urine Urobilinogen LESS THAN 2.0 Urine Leukocyte Esterase NEG Urine RBC 2 Urine WBC 4 Urine Bacteria RARE Microscopic Urinalysis Comment CULT NOT INDICATED Prothrombin Time 19.4 Prothromb Time International 1.7 Ratio C-Reactive Protein 20.00 Test 08/24/16 13:11 25-Hydroxy Vitamin D Total 40.2 Parathyroid Hormone (Intact) 121.1 Date/Time Procedure Status Source Growth 08/23/16 18:50 Aerobic Blood Culture - Preliminary Resulted Blood Peripheral NO GROWTH IN 1 DAY 08/23/16 18:50 Anaerobic Blood Culture - Preliminary Resulted Blood Peripheral NO GROWTH IN 1 DAY Result Diagram: 08/23/16 2810 08/24/16 0705 Assessment and Plan Problem List: (1) ESRD (end stage renal disease) on dialysis Plan: HD as scheduled today. BCx ordered and are pending. Vanc with treatment today. Continue on TTS schedule Medications should be adjusted for the patient's ESRD. Avoid gadolinium. (2) HTN (hypertension) Plan: Continue on home regimen (3) General weakness Plan: Unclear etiology. BCx and UCx pending. Potentially medication related? (4) Tremulousness Plan: Potentially related to increased Gabapentin use. Maximum daily dose of 300mg/24h or less depending on side effects. (5) Hypercalcemia Plan: Both PhosLo and Fosrenol listed as home medication. D/C PhosLo. Continue on Fosrenol. Check iPTH & Vit D levels Assessment and Plan The exam, history, and the medical decision-making described in the above note were completed with the assistance of the PAFidel. I reviewed and agree with the findings presented. I attest that I had a [id number] encounter with the patient on the same day, and personally performed and documented my assessment and findings in the medical record. Danita Maria MD August 24, 2016 17:23
--- NOTE | 2016-08-24 17:26 | HHI.PR ---
Subjective Remarks Patient seen during dialysis. PermCath appears to be working well. The patient is arousable and responding to name however confused. Lungs clear to auscultation. Heart sounds 1 and 2 regular. Abdomen benign. The patient's BUN/creatinine are relatively high for a dialysis patient with reduced muscle mass. Patient may be hypercatabolic or clearances are inadequate with current dialysis prescription. I will order dialysis again tomorrow to improve azotemia which may help his mental status. Await results of blood cultures also.. Objective Vital Signs Date Time Temp Pulse Resp B/P Pulse Ox O2 Delivery O2 Flow Rate FiO2 08/24/16 13:15 97.0 72 20 124/59 97 08/24/16 11:24 98.9 78 18 113/56 94 08/24/16 10:49 16 08/24/16 09:24 98 Nasal Cannula 2.00 08/24/16 07:36 98.7 71 18 149/66 94 08/24/16 04:15 99.0 77 17 156/68 97 08/24/16 00:27 99.5 80 17 178/70 94 08/23/16 22:02 73 18 162/72 97 Room Air 08/23/16 18:49 100.1 83 20 173/79 95 Room Air 08/23/16 18:48 20 95 Room Air I/O 08/23/16 08/23/16 08/23/16 08/24/16 08/24/16 08/24/16 07:00 15:00 23:00 07:00 15:00 23:00 Output Total 300 ml Balance -300 ml Output Urine Total 300 ml Result Diagram: 08/23/16 1850 08/24/16 0705 Danita Maria MD August 24, 2016 17:26
[2016-08-24] MEDS: GENTAMICIN SULFATE (DIALYSIS USE ONLY) 20 MG/2 ML VIAL IV PRN (17:29)
[2016-08-24] MEDS: HEPARIN SODIUM - IV 10,000 UNITS/10 ML VIAL PRN (17:30)
[2016-08-24] MEDS: cefTRIAXone INJ 1,000 MG in SODIUM CHLORIDE 0.9% INJ 100 ML IV SCH (18:16)
[2016-08-24 19:21] LABS: BICARBONATE 30.3 MEQ/L (21.0-32.0); POTASSIUM 3.9 MEQ/L (3.5-5.1)
[2016-08-24] MEDS ORDERED: CHLORHEXIDINE GLUCONATE 2 % 1 PACK (2 CLOTHS)(extra cloths) TOPICAL PRN (20:00)
--- NOTE | 2016-08-24 20:39 | RADRPT ---
EXAM DATE/TIME: 08/24/2016 19:46 [place] COMPARISON: No previous studies available for comparison. INDICATIONS : Left shoulder pain. RADIATION DOSE: 12.12 CTDIvol (mGy) MEDICAL HISTORY : Cardiovascular disease. Hypertension. Diabetes mellitus type 2.Renal failure Dialysis SURGICAL HISTORY : Appendectomy. ENCOUNTER: Initial ACUITY: 2 days PAIN SCALE: 10/10 LOCATION: Left shoulder TECHNIQUE: Volumetric scanning of the shoulder was performed. Using automated exposure control and adjustment o f the mA and/or kV according to patient size, radiation dose was kept as low as reasonably achievable to obtain optimal diagnostic quality images. FINDINGS: There is a shoulder joint effusion as well as fluid in the subacromial/subdeltoid bursa. There is als o some probable fluid medial to the shoulder joint. Slight subluxation of the humeral head anteriorly at the glenohumeral joint. There are cystic changes in the distal clavicle and acromion probably rel ated to chronic osteoarthritis. Acromiohumeral distance appears narrowed likely secondary to underlyi ng rotator cuff disease. Rotator cuff tendon not well identified on noncontrast CT. CONCLUSION: 1. Positive shoulder joint effusion also with fluid in the subacromial/subdeltoid bursa. Mild subluxa tion of the humeral head anteriorly. Chronic arthropathy of the a.c. joint. 2. Cannot adequately evaluate rotator cuff pathology but suspicious given narrowing of acromiohumeral distance. Shoulder would be better evaluated with MRI. Etiology of effusion unclear. 3. No acute fracture identified. Quang Watts MD on August 24, 2016 at 20:32 Board Certified Radiologist. This report was verified electronically.
[2016-08-24] MEDS: ATORVASTATIN 10 MG TAB PO SCH (21:17)
[2016-08-25] VITALS (13 sets, daily range): BP systolic 117–134; BP diastolic 54–61; PULSE 72–85; RESP 13–26; TEMP 98.1–98.7; O2SAT 93–97
[2016-08-25] MEDS: CHLORHEXIDINE GLUCONATE 2 % 1 PACK (2 CLOTHS)(taper/protocol) TOPICAL SCH (01:49)
[2016-08-25] MEDS ORDERED: traMADol HCL 50 MG TAB PO SCH (02:45)
[2016-08-25 05:09] LABS: AUTOMATED NEUTROPHIL # 6.3 TH/MM3 (1.8-7.7); BASOPHIL # 0.1 TH/MM3 (0-0.2); BASOPHIL % 1.4 % (0.0-2.0); EOSINOPHIL # 0.1 TH/MM3 (0-0.4); EOSINOPHIL % 0.9 % (0.0-4.0); HEMATOCRIT 27.2 % (39.0-51.0); HEMO FLAGS DIFF FINAL; LYMPH % 9.6 % (9.0-44.0); LYMPHOCYTE # 0.9 TH/MM3 (1.0-4.8); MEAN CELL VOLUME 97.9 FL (80.0-100.0); MEAN CORPUSCULAR HEMOGLOBIN 32.3 PG (27.0-34.0); NEUT % 69.1 % (16.0-70.0); PLATELET COUNT 318 TH/MM3 (150-450); RED BLOOD COUNT 2.78 MIL/MM3 (4.50-5.90); RED CELL DISTRIBUTION WIDTH 14.8 % (11.6-17.2); WHITE BLOOD COUNT 9.1 TH/MM3 (4.0-11.0)
[2016-08-25 05:11] LABS: INTERNATIONAL NORMALIZED RATIO 1.5 RATIO; PROTHROMBIN TIME - PATIENT 17.3 SEC (9.8-11.6)
[2016-08-25 05:17] LABS: BICARBONATE 29.9 MEQ/L (21.0-32.0); MAGNESIUM 2.5 MG/DL (1.5-2.5); POTASSIUM 4.3 MEQ/L (3.5-5.1)
[2016-08-25] MEDS: FINASTERIDE 5 MG TAB PO SCH (09:39)
[2016-08-25] MEDS: VITAMIN B CMPLX/VITC/FOLIC AC CAP PO SCH (09:39)
[2016-08-25] MEDS: GABAPENTIN 100 MG CAP PO SCH ×2 (09:39→20:58)
[2016-08-25] MEDS: TAMSULOSIN HCL 0.4 MG CAP PO SCH (09:39)
[2016-08-25] MEDS: NIFEdipine 60 MG SUSTAINED RELEASE TAB PO SCH ×2 (09:39→20:58)
[2016-08-25] MEDS: QUEtiapine FUMARATE 25 MG TAB PO SCH ×2 (09:39→20:58)
[2016-08-25] MEDS: hydrALAZINE HCL 25 MG TAB PO SCH ×2 (09:40→20:58)
[2016-08-25] MEDS: FLUTICASONE PROPIONATE 50 MCG/ACT 16 GM NASAL SPRAY EACH NARE SCH (09:40)
[2016-08-25] MEDS: LANTHANUM CARBONATE 500 MG CHEWABLE TABLET CHEW SCH ×3 (09:40→18:00)
[2016-08-25] MEDS: ACETAMINOPHEN 325 MG TAB PO PRN (10:09)
[2016-08-25] MEDS: ALBUMIN HUMAN 25% 25 GM/100 ML BAGP IV PRN (14:29)
[2016-08-25] MEDS: GENTAMICIN SULFATE (DIALYSIS USE ONLY) 20 MG/2 ML VIAL IV PRN (17:31)
[2016-08-25] MEDS: HEPARIN SODIUM - IV 10,000 UNITS/10 ML VIAL PRN (17:32)
--- NOTE | 2016-08-25 17:40 | HHI.PR ---
Subjective Remarks MORE AWAKE AND ALERT. HUNGRY. Objective Vitals oriented heart reg lung cta abd s/nt ext no edema permcath. Vital Signs Date Time Temp Pulse Resp B/P Pulse Ox O2 Delivery O2 Flow Rate FiO2 08/25/16 14:00 84 08/25/16 12:00 72 08/25/16 12:00 98.1 72 18 123/59 94 08/25/16 10:00 84 08/25/16 08:00 73 08/25/16 08:00 98.7 73 21 134/61 94 08/25/16 07:57 94 Nasal Cannula 2.00 08/25/16 06:00 80 08/25/16 04:00 76 13 122/60 93 08/25/16 04:00 76 08/25/16 03:43 20 08/25/16 02:00 84 08/25/16 00:00 85 14 123/56 96 08/25/16 00:00 84 08/24/16 22:00 86 08/24/16 21:34 94 Nasal Cannula 2.00 08/24/16 20:00 95 20 148/62 96 08/24/16 20:00 95 08/24/16 18:49 100.3 101 18 158/72 08/24/16 08/24/16 08/25/16 15:00 23:00 07:00 Intake Total 217 ml 306 ml Output Total 0 ml 100 ml Balance 217 ml 206 ml Intake Oral 120 ml 240 ml IV Total 97 ml 66 ml Output Urine Total 0 ml 100 ml Result Diagram: 08/25/16 0405 08/25/16 0405 Imaging Last 72 hours Impressions Chest X-Ray 08/23/16 1844 Signed Impressions: Service Date/Time: Tuesday, August 23, 2016 18:58 - CONCLUSION: 1. Left basilar atelectasis. 2. Cardiomegaly. João Fernandez MD A/P Problem List: (1) Mental status change Status: Acute Plan: Pt is 75 yo known to our [facility]. ESRD converted to HD earlier this yr from PD Admitted in June for severe htn, encephalopathy, and concern for peritonitis Presents again with low grade fever, general weakness, and now AMS/lethargy and tremors Bud to have metabolic encephalopathy and azotemia. r/o sepsis. Also c/o worsening pain in left shoulder. appears to have effusion in the left shoulder Improving mental status after HD last night. Getting another today. cont broad spectrum abx. f/u on blood cx's ask Ortho to eval his left shoulder pain and effusion. monitor in ICU PT today resume diet cont home medications dvt prophlylaxis. - (2) General weakness Status: Acute Plan: see above (3) Febrile illness Status: Acute Plan: - see above (4) ESRD (end stage renal disease) on dialysis Status: Chronic Plan: - Appreciate nephrology consult. - HD , , (5) Acute hyperkalemia Status: Acute Plan: see above (6) Atrial fibrillation Status: Chronic Plan: - Rate controlled. - Continue warfarin, - INR subtherapeutic, monitor daily (7) HTN (hypertension) Status: Chronic Plan: Somewhat difficult to control in the past. continue meds (8) Shoulder pain, acute Status: Acute Plan: see above Javy Hudson MD August 25, 2016 17:40
[2016-08-25] MEDS: cefTRIAXone INJ 1,000 MG in SODIUM CHLORIDE 0.9% INJ 100 ML IV SCH (18:00)
[2016-08-25] MEDS: WARFARIN SOD 6 MG TAB PO SCH (18:03)
--- NOTE | 2016-08-25 18:54 | HHI.NPPN ---
Subjective History of Present Illness The patient is a 75 yo [place] male who is known to our outpatient services for ESRD on dialysis. Was brought to the ED yesterday evening by his who noted that he has had tremors, fatigue, and low grade fever. The patient himself is obtunded at the present as he has just received pain medications, so history is obtained via other records and outpatient dialysis facility. According to charts, his Gabapentin was recently increased from once daily to TID and seems to coincide with symptoms. He dialyzes TTS as outpatient and has not missed any sessions. According to outpatient nurse, he has had no events during recent dialysis sessions including no rigors or fever. He does have RIJ PermCath and was scheduled for outpatient consultation for AVF placement tomorrow. Interval History s/p HD 2 days in a row. SCr improving More alert today, but patient refers he "feels like crap"---was not able to elaborate except saying he is very tired. Denies any CP, no SOB, no NVD. (Isis Herman) Review of Systems General Constitutional: Fatigue (Isis Herman) Objective Data Data 08/24/16 08/25/16 19:00 07:00 Intake Total 523 ml Output Total 100 ml Balance 423 ml Intake Oral 360 ml IV Total 163 ml Output Urine Total 100 ml Vital Signs Date Time Temp Pulse Resp B/P Pulse Ox O2 Delivery O2 Flow Rate FiO2 08/25/16 16:00 72 08/25/16 14:00 84 08/25/16 12:00 72 08/25/16 12:00 98.1 72 18 123/59 94 08/25/16 10:00 84 08/25/16 08:00 73 08/25/16 08:00 98.7 73 21 134/61 94 08/25/16 07:57 94 Nasal Cannula 2.00 08/25/16 06:00 80 08/25/16 04:00 76 13 122/60 93 08/25/16 04:00 76 08/25/16 03:43 20 08/25/16 02:00 84 08/25/16 00:00 85 14 123/56 96 08/25/16 00:00 84 08/24/16 22:00 86 08/24/16 21:34 94 Nasal Cannula 2.00 08/24/16 20:00 95 20 148/62 96 08/24/16 20:00 95 08/24/16 18:49 100.3 101 18 158/72 (Isis Herman) -: 08/25/16 0405 08/25/16 0405 Imaging Last Impressions Upper Extremity CT 08/24/16 0000 Signed Impressions: Service Date/Time: Wednesday, August 24, 2016 19:46 - CONCLUSION: 1. Positive shoulder joint effusion also with fluid in the subacromial/subdeltoid bursa. Mild subluxation of the humeral head anteriorly. Chronic arthropathy of the a.c. joint. 2. Cannot adequately evaluate rotator cuff pathology but suspicious given narrowing of acromiohumeral distance. Shoulder would be better evaluated with MRI. Etiology of effusion unclear. 3. No acute fracture identified. Quang Watts MD Chest X-Ray 08/23/16 1844 Signed Impressions: Service Date/Time: Tuesday, August 23, 2016 18:58 - CONCLUSION: 1. Left basilar atelectasis. 2. Cardiomegaly. João Fernandez MD Tubes & Lines: Perma-Cath Medication Review Current Medications Medications (Trade) Dose Ordered Sig/Terra Route Start Time Stop Time Status Last Admin (NS Flush) 2 ml UNSCH PRN IVF 08/23/16 18:45 (Tylenol) 500 mg Q6H PRN PO 08/23/16 21:45 (Lipitor) 10 mg HS PO 08/24/16 21:00 08/24/16 21:17 (Proscar) 5 mg DAILY PO 08/24/16 09:00 08/25/16 09:39 (Flonase Mario Spr) 1 spray DAILY EACH NARE 08/24/16 09:00 08/25/16 09:40 (Neurontin) 100 mg BID PO 08/24/16 09:00 08/25/16 09:39 (Apresoline) 75 mg BID PO 08/24/16 09:00 08/25/16 09:40 (Fosrenol Chew) 1,000 mg TID CHEW 08/24/16 09:00 08/25/16 18:00 (Procardia Xl) 60 mg BID PO 08/24/16 09:00 08/25/16 09:39 (SEROquel) 25 mg BID PO 08/24/16 09:00 08/25/16 09:39 (Flomax) 0.4 mg DAILY PO 08/24/16 09:00 08/25/16 09:39 (Nephrocaps) 1 cap DAILY PO 08/24/16 09:00 08/25/16 09:39 (Coumadin) 6 mg DAILY@16 PO 08/24/16 16:00 08/25/16 18:03 Clonidine 0.1 mg 0.1 mg Q6H PRN PO 08/23/16 22:00 (NS 1000 ml Inj) 1,000 ml @ 0 mls/hr Q0M PRN IV 08/24/16 09:15 Heparin Sodium (Porcine) 8000 units 8,000 units UNSCH PRN IVF 08/24/16 09:15 Sodium Chloride 1,000 ml @ 200 mls/hr Q5H PRN IV 08/24/16 09:15 (NS 1000 ml Inj) 1,000 ml @ 0 mls/hr Q0M PRN IV 08/24/16 09:15 (Mannitol Inj) 12.5 gm UNSCH PRN IV 08/24/16 09:15 (Albumin 25% Inj) 25 gm UNSCH PRN IV 08/24/16 09:15 08/25/16 14:29 (NS Flush) 5 ml UNSCH PRN IV FLUSH 08/24/16 09:15 (Heparin Inj) UNSCH PRN .XX 08/24/16 09:15 08/25/16 17:32 (Gentamicin (Dialysis) Inj) 20 mg UNSCH PRN IV 08/24/16 09:15 08/25/16 17:31 (Zofran Inj) 4 mg UNSCH PRN IV 08/24/16 09:15 (Tylenol) 650 mg UNSCH PRN PO 08/24/16 09:15 08/25/16 10:09 (Benadryl) 25 mg UNSCH PRN PO 08/24/16 09:15 (Nitrostat Sl) 0.4 mg UNSCH PRN SL 08/24/16 09:15 (Catapres) 0.1 mg UNSCH PRN PO 08/24/16 09:15 Gelatin 1 foam 1 foam UNSCH PRN TOP 08/24/16 09:15 (Rocephin Inj/NS Inj) 100 ml @ 200 mls/hr Q24H IV 08/24/16 18:00 08/25/16 18:00 Miscellaneous Information Patient in critical care unit? Ass... [id number] .XX 08/24/16 20:00 08/24/16 20:00 (Chlorhexidine 2% Cloth) 3 pack DAILY@04 TOPICAL 08/25/16 04:00 08/29/16 04:01 08/25/16 01:49 (Chlorhexidine 2% Cloth) 3 pack UNSCH PRN TOPICAL 08/24/16 20:00 08/29/16 19:46 (Isis Herman) Physical Exam General Appearance: Comfortable, Malnourished (Isis Herman) Eyes Eye Exam: Pupils Equal (Isis Herman) Throat Throat Exam: Oral Mucosa [place] & Moist (Isis Herman) Neck Neck Exam: Neck Supple, Trachea Midline (Isis Herman) Pulmonary Resp Exam: Clear Bilaterally, Breath Sounds Equal (Isis Herman) Cardiology CV Exam: Regular, Normal Sinus Rhythm (Isis Herman) Integumentary Skin Exam: Clear, Warm, Dry (Isis Herman) Extremeties Extremities Exam: No Edema (Isis Herman) Neurologic Neuro Exam: Awake (Isis Herman) Assessment/Plan Problem List: (1) ESRD (end stage renal disease) on dialysis Plan: Plan for HD again tomorrow to keep on TTS schedule. More alert today, but says he is not feeling better. May need to adjust on dialysis prescription for more adequate clearances as outpatient. Review of SCr levels for the past 2 year show between 4-6 and when he arrived was at 8. Reports that his UOP has been slowing down indicating loss of residual renal functions. Medications should be adjusted for the patient's ESRD. Avoid gadolinium. (2) HTN (hypertension) Plan: Continue on home regimen (3) General weakness Plan: BCx neg x48h Reassess after HD tomorrow. Would avoid sedating medications if possible (4) Tremulousness Plan: Potentially related to increased Gabapentin use. Maximum daily dose of 300mg/24h or less depending on side effects. (5) Hypercalcemia Plan: Improved. iPTH and Vit D levels within acceptable range. Monitor (Isis Herman) Plan The exam, history, and the medical decision-making described in the above note were completed with the assistance of the PA-C. I reviewed and agree with the findings presented. (Danita Maria MD) Isis Herman August 25, 2016 18:54 Danita Maria MD August 26, 2016 15:52
[2016-08-25] MEDS: ATORVASTATIN 10 MG TAB PO SCH (20:58)
[2016-08-26] VITALS (34 sets, daily range): BP systolic 111–169; BP diastolic 64–76; PULSE 71–92; RESP 14–46; TEMP 97.9–99; O2SAT 91–99
[2016-08-26] MEDS: ACETAMINOPHEN 325 MG TAB PO PRN (01:20)
[2016-08-26] MEDS: CHLORHEXIDINE GLUCONATE 2 % 1 PACK (2 CLOTHS)(taper/protocol) TOPICAL SCH ×2 (04:00→23:58)
[2016-08-26 06:21] LABS: INTERNATIONAL NORMALIZED RATIO 1.4 RATIO
[2016-08-26 06:54] LABS: BICARBONATE 30.6 MEQ/L (21.0-32.0); POTASSIUM 3.7 MEQ/L (3.5-5.1)
[2016-08-26 07:58] LABS: CALCIUM-PROTEIN CORRECTED 10.5 MG/DL (8.5-10.1)
[2016-08-26] MEDS: hydrALAZINE HCL 25 MG TAB PO SCH ×2 (08:05→20:42)
[2016-08-26] MEDS: GABAPENTIN 100 MG CAP PO SCH ×2 (08:05→20:42)
[2016-08-26] MEDS: FINASTERIDE 5 MG TAB PO SCH (08:05)
[2016-08-26] MEDS: LANTHANUM CARBONATE 500 MG CHEWABLE TABLET CHEW SCH ×3 (08:05→17:16)
[2016-08-26] MEDS: TAMSULOSIN HCL 0.4 MG CAP PO SCH (08:05)
[2016-08-26] MEDS: NIFEdipine 60 MG SUSTAINED RELEASE TAB PO SCH ×2 (08:05→20:42)
[2016-08-26] MEDS: QUEtiapine FUMARATE 25 MG TAB PO SCH ×2 (08:05→20:42)
[2016-08-26] MEDS: VITAMIN B CMPLX/VITC/FOLIC AC CAP PO SCH (08:08)
[2016-08-26] MEDS: FLUTICASONE PROPIONATE 50 MCG/ACT 16 GM NASAL SPRAY EACH NARE SCH (10:04)
[2016-08-26] MEDS: HEPARIN SODIUM - IV 10,000 UNITS/10 ML VIAL PRN (12:46)
[2016-08-26] MEDS: GENTAMICIN SULFATE (DIALYSIS USE ONLY) 20 MG/2 ML VIAL IV PRN (12:46)
--- NOTE | 2016-08-26 15:50 | HHI.NPPN ---
Subjective History of Present Illness The patient is a 75 yo [place] male who is known to our outpatient services for ESRD on dialysis. Was brought to the ED yesterday evening by his who noted that he has had tremors, fatigue, and low grade fever. The patient himself is obtunded at the present as he has just received pain medications, so history is obtained via other records and outpatient dialysis facility. According to charts, his Gabapentin was recently increased from once daily to TID and seems to coincide with symptoms. He dialyzes TTS as outpatient and has not missed any sessions. According to outpatient nurse, he has had no events during recent dialysis sessions including no rigors or fever. He does have RIJ PermCath and was scheduled for outpatient consultation for AVF placement tomorrow. Interval History Patient appears much more alert. No verbal complaints. Review of Systems General Constitutional: Fatigue Objective Data Data 08/25/16 08/26/16 19:00 07:00 Intake Total 400 ml 266 ml Output Total 2100 ml 150 ml Balance -1700 ml 116 ml Intake Oral 400 ml 150 ml IV Total 116 ml Output Urine Total 100 ml 150 ml Hemodialysis 2000 ml # Bowel Movements 0 Vital Signs Date Time Temp Pulse Resp B/P Pulse Ox O2 Delivery O2 Flow Rate FiO2 08/26/16 12:30 80 25 140/67 97 08/26/16 12:00 98.6 75 14 152/70 96 08/26/16 11:00 71 14 134/64 95 08/26/16 10:00 73 19 121/65 95 08/26/16 09:29 83 37 140/65 91 08/26/16 09:17 82 20 147/72 94 08/26/16 09:00 79 21 144/65 97 08/26/16 08:00 98.2 72 19 158/72 98 08/26/16 07:34 99 Nasal Cannula 2.00 08/26/16 07:00 78 17 162/75 93 08/26/16 06:00 74 08/26/16 06:00 74 19 145/71 97 08/26/16 05:00 73 16 151/69 98 08/26/16 04:00 75 08/26/16 04:00 97.9 75 18 141/68 97 08/26/16 04:00 75 18 141/68 97 08/26/16 03:00 74 21 111/68 94 08/26/16 02:20 24 08/26/16 02:00 81 08/26/16 02:00 81 22 135/68 95 08/26/16 01:00 91 32 146/65 97 08/26/16 00:00 98.6 78 24 141/66 98 08/26/16 00:00 78 08/26/16 00:00 78 41 141/66 96 08/25/16 22:00 79 08/25/16 20:00 98.4 78 26 119/54 95 08/25/16 20:00 78 08/25/16 18:00 74 08/25/16 16:00 98.4 72 19 117/57 97 08/25/16 16:00 72 -: 08/25/16 0405 08/26/16 0533 Tubes & Lines: Perma-Cath Physical Exam General Appearance: Comfortable, Malnourished Eyes Eye Exam: Pupils Equal Throat Throat Exam: Oral Mucosa [place] & Moist Neck Neck Exam: Neck Supple, Trachea Midline Pulmonary Resp Exam: Clear Bilaterally, Breath Sounds Equal Cardiology CV Exam: Regular, Normal Sinus Rhythm Integumentary Skin Exam: Clear, Warm, Dry Extremeties Extremities Exam: No Edema Neurologic Neuro Exam: Alert, Awake, Speech Clear, Moving All Extremities Psychiatric Psych Exam: Appropriate Responses Assessment/Plan Discussed Condition With: Patient Problem List: (1) ESRD (end stage renal disease) on dialysis Plan: Patient was seen during his dialysis treatment today. Patient is much more alert. Blood cultures negative and dialysis PermCath appears to be working well. He was advised that I will have to increase his dialysis time post discharge to improve clearances. Suspect patient has lost residual kidney function. Exact etiology of altered mental status uncertain. Polypharmacy at home may or may not be playing a role also. Medications should be adjusted for the patient's ESRD. Avoid gadolinium. (2) HTN (hypertension) Plan: Continue on home regimen (3) General weakness Plan: BCx neg x48h Reassess after HD tomorrow. Would avoid sedating medications if possible (4) Tremulousness Plan: Potentially related to increased Gabapentin use. Maximum daily dose of 300mg/24h or less depending on side effects. (5) Hypercalcemia Plan: We'll check if patient has been using calcium acetate at home. Patient uncertain. Repeat calcium level tomorrow. Danita Maria MD August 26, 2016 15:50
[2016-08-26] MEDS: oxyCODONE/ACETAMINOPHEN 5 MG/325 MG TAB PO PRN (16:04)
[2016-08-26] MEDS: WARFARIN SOD 6 MG TAB PO SCH (16:08)
[2016-08-26] MEDS: cefTRIAXone INJ 1,000 MG in SODIUM CHLORIDE 0.9% INJ 100 ML IV SCH (17:18)
[2016-08-26] MEDS: methylPREDNISolone SOD SUCC 125 MG/2 ML VIAL IV PUSH SCH (17:18)
[2016-08-26] MEDS ORDERED: GLUCAGON 1 MG/ML VIAL OTHER PRN (20:15)
[2016-08-26] MEDS ORDERED: DEXTROSE 50% IN WATER 50 ML VIAL(D50) IV PUSH PRN (20:15)
[2016-08-26] MEDS: ATORVASTATIN 10 MG TAB PO SCH (20:42)
[2016-08-26] MEDS: LOW DOSE INSULIN NOVOLOG SUPPLEMENTAL SCALE SQ SCH ×2 (21:00→22:46)
--- NOTE | 2016-08-26 21:43 | HHI.PR ---
Subjective Remarks more alert. just complains of left shoulder Objective Vitals heart reg lung cta abd s/nt ext no edema left shoulder diffusely tender Vital Signs Date Time Temp Pulse Resp B/P Pulse Ox O2 Delivery O2 Flow Rate FiO2 08/26/16 20:23 95 Nasal Cannula 2.00 08/26/16 17:00 84 31 94 08/26/16 16:00 98.3 84 24 155/70 94 08/26/16 15:45 82 21 152/74 97 08/26/16 15:30 79 24 150/74 97 08/26/16 15:15 86 46 157/74 95 08/26/16 15:00 87 22 151/72 95 08/26/16 14:45 92 30 169/72 96 08/26/16 14:30 76 19 155/74 96 08/26/16 14:15 78 15 158/73 97 08/26/16 14:00 84 29 163/74 96 08/26/16 13:45 75 20 146/76 97 08/26/16 13:30 79 31 148/71 96 08/26/16 13:15 75 25 146/71 97 08/26/16 13:00 73 25 138/65 96 08/26/16 12:30 80 25 140/67 97 08/26/16 12:00 98.6 75 14 152/70 96 08/26/16 11:00 71 14 134/64 95 08/26/16 10:00 73 19 121/65 95 08/26/16 09:29 83 37 140/65 91 08/26/16 09:17 82 20 147/72 94 08/26/16 09:00 79 21 144/65 97 08/26/16 08:00 98.2 72 19 158/72 98 08/26/16 07:34 99 Nasal Cannula 2.00 08/26/16 07:00 78 17 162/75 93 08/26/16 06:00 74 08/26/16 06:00 74 19 145/71 97 08/26/16 05:00 73 16 151/69 98 08/26/16 04:00 75 08/26/16 04:00 97.9 75 18 141/68 97 08/26/16 04:00 75 18 141/68 97 08/26/16 03:00 74 21 111/68 94 08/26/16 02:20 24 08/26/16 02:00 81 08/26/16 02:00 81 22 135/68 95 08/26/16 01:00 91 32 146/65 97 08/26/16 00:00 98.6 78 24 141/66 98 08/26/16 00:00 78 08/26/16 00:00 78 41 141/66 96 08/25/16 22:00 79 08/25/16 08/25/16 08/26/16 15:00 23:00 07:00 Intake Total 400 ml 236 ml 30 ml Output Total 100 ml 2100 ml 50 ml Balance 300 ml -1864 ml -20 ml Intake Oral 400 ml 120 ml 30 ml IV Total 116 ml 0 ml Output Urine Total 100 ml 100 ml 50 ml Hemodialysis 2000 ml # Bowel Movements 0 0 Result Diagram: 08/25/16 0405 08/26/16 0533 Imaging Last 72 hours Impressions Chest X-Ray 08/23/16 1844 Signed Impressions: Service Date/Time: Tuesday, August 23, 2016 18:58 - CONCLUSION: 1. Left basilar atelectasis. 2. Cardiomegaly. João Fernandez MD A/P Problem List: (1) Mental status change Status: Acute Plan: Pt is 75 yo known [place] [facility] [place] converted to HD earlier this yr from PD Admitted in June for severe htn, encephalopathy, and concern for peritonitis Presents again with low grade fever, general weakness, and now AMS/lethargy and tremors [place] to have metabolic encephalopathy and azotemia. r/o sepsis. ?hypercalcemia Also c/o worsening pain in left shoulder. appears to have effusion in the left shoulder Improving mental status after HD. renal adjusting his prescription cont broad spectrum abx. ngtd on cx. Could probably d/c vanc with HD ask Ortho to eval his left shoulder pain and effusion. transfer out icu in morning. PT today resumed diet cont home medications dvt prophlylaxis. - (2) General weakness Status: Acute Plan: see above (3) Febrile illness Status: Acute Plan: - see above (4) ESRD (end stage renal disease) on dialysis Status: Chronic Plan: - Appreciate nephrology consult. - HD , , (5) Acute hyperkalemia Status: Acute Plan: see above (6) Atrial fibrillation Status: Chronic Plan: - Rate controlled. - Continue warfarin, - INR subtherapeutic, monitor daily (7) HTN (hypertension) Status: Chronic Plan: Somewhat difficult to control in the past. continue meds (8) Shoulder pain, acute Status: Acute Plan: see above Javy Hudson MD August 26, 2016 21:43
[2016-08-27] VITALS (12 sets, daily range): BP systolic 126–159; BP diastolic 60–77; PULSE 69–81; RESP 20–45; TEMP 97.2–99.5; O2SAT 95–98
[2016-08-27] MEDS: methylPREDNISolone SOD SUCC 125 MG/2 ML VIAL IV PUSH SCH ×2 (00:23→05:19)
[2016-08-27] MEDS: LOW DOSE INSULIN NOVOLOG SUPPLEMENTAL SCALE SQ SCH ×4 (06:11→22:14)
[2016-08-27 07:23] LABS: BICARBONATE 34.3 MEQ/L (21.0-32.0); CALCIUM-PROTEIN CORRECTED 10.7 MG/DL (8.5-10.1); POTASSIUM 3.8 MEQ/L (3.5-5.1)
[2016-08-27 08:19] LABS: CALCIUM-PROTEIN CORRECTED ND MG/DL (8.5-10.1)
--- NOTE | 2016-08-27 08:46 | HHI.PR ---
Subjective Remarks felt "twitchy" again oriented Objective Vitals oriented follows commands heart reg lung cta abd s/nt ext no edema permcath. Vital Signs Date Time Temp Pulse Resp B/P Pulse Ox O2 Delivery O2 Flow Rate FiO2 08/27/16 07:54 97 Nasal Cannula 2.00 08/27/16 06:00 70 08/27/16 04:00 75 08/27/16 04:00 99.5 78 23 159/77 96 08/27/16 02:00 76 08/27/16 00:00 99.4 80 25 156/72 95 08/27/16 00:00 78 08/26/16 22:00 77 08/26/16 20:23 95 Nasal Cannula 2.00 08/26/16 20:00 99.0 84 22 146/70 95 08/26/16 20:00 84 08/26/16 17:00 84 31 94 08/26/16 16:00 98.3 84 24 155/70 94 08/26/16 15:45 82 21 152/74 97 08/26/16 15:30 79 24 150/74 97 08/26/16 15:15 86 46 157/74 95 08/26/16 15:00 87 22 151/72 95 08/26/16 14:45 92 30 169/72 96 08/26/16 14:30 76 19 155/74 96 08/26/16 14:15 78 15 158/73 97 08/26/16 14:00 84 29 163/74 96 08/26/16 13:45 75 20 146/76 97 08/26/16 13:30 79 31 148/71 96 08/26/16 13:15 75 25 146/71 97 08/26/16 13:00 73 25 138/65 96 08/26/16 12:30 80 25 140/67 97 08/26/16 12:00 98.6 75 14 152/70 96 08/26/16 11:00 71 14 134/64 95 08/26/16 10:00 73 19 121/65 95 08/26/16 09:29 83 37 140/65 91 08/26/16 09:17 82 20 147/72 94 08/26/16 09:00 79 21 144/65 97 08/26/16 08/26/16 08/27/16 15:00 23:00 07:00 Intake Total 420 ml 240 ml 240 ml Output Total 0 ml 0 ml 0 ml Balance 420 ml 240 ml 240 ml Intake Oral 420 ml 240 ml 240 ml IV Total 0 ml 0 ml 0 ml Output Urine Total 0 ml 0 ml 0 ml # Bowel Movements 0 0 0 Result Diagram: 08/25/16 0405 08/27/16 0517 Imaging Last 72 hours Impressions Chest X-Ray 08/23/16 1844 Signed Impressions: Service Date/Time: Tuesday, August 23, 2016 18:58 - CONCLUSION: 1. Left basilar atelectasis. 2. Cardiomegaly. João Fernandez MD A/P Problem List: (1) Mental status change Status: Acute Plan: Pt is 75 [place] [facility] [place] earlier this yr from PD Admitted in June for severe htn, encephalopathy, and concern for peritonitis Presents again with low grade fever, general weakness, and now AMS/lethargy and tremors [place] to have metabolic encephalopathy and azotemia. r/o sepsis. ?hypercalcemia Also c/o worsening pain in left shoulder. appears to have effusion in the left shoulder Improving mental status after HD. renal adjusting his prescription and addressing hypercalcemia cont broad spectrum abx. ngtd on cx. Could probably d/c vanc with HD ask Ortho to eval his left shoulder pain and effusion. Gave solumedrol last night to help with pain. transfer out icu this morning. PT today resumed diet cont home medications dvt prophlylaxis. - (2) General weakness Status: Acute Plan: see above (3) Febrile illness Status: Acute Plan: - see above (4) ESRD (end stage renal disease) on dialysis Status: Chronic Plan: - Appreciate nephrology consult. - HD , , (5) Acute hyperkalemia Status: Acute Plan: see above (6) Atrial fibrillation Status: Chronic Plan: - Rate controlled. - Continue warfarin, - INR subtherapeutic, monitor daily (7) HTN (hypertension) Status: Chronic Plan: Somewhat difficult to control in the past. continue meds (8) Shoulder pain, acute Status: Acute Plan: see above Javy Hudson MD August 27, 2016 08:45
[2016-08-27] MEDS: FINASTERIDE 5 MG TAB PO SCH (09:56)
[2016-08-27] MEDS: QUEtiapine FUMARATE 25 MG TAB PO SCH ×2 (09:57→22:08)
[2016-08-27] MEDS: GABAPENTIN 100 MG CAP PO SCH ×2 (09:57→22:08)
[2016-08-27] MEDS: NIFEdipine 60 MG SUSTAINED RELEASE TAB PO SCH ×2 (09:57→22:07)
[2016-08-27] MEDS: TAMSULOSIN HCL 0.4 MG CAP PO SCH (09:57)
[2016-08-27] MEDS: hydrALAZINE HCL 25 MG TAB PO SCH ×2 (09:57→22:07)
[2016-08-27] MEDS: LANTHANUM CARBONATE 500 MG CHEWABLE TABLET CHEW SCH ×3 (09:57→17:54)
[2016-08-27] MEDS: POLYETHYLENE GLYCOL 17 GM PKG PO SCH (09:57)
[2016-08-27] MEDS: FLUTICASONE PROPIONATE 50 MCG/ACT 16 GM NASAL SPRAY EACH NARE SCH (09:59)
[2016-08-27] MEDS: VITAMIN B CMPLX/VITC/FOLIC AC CAP PO SCH (10:02)
[2016-08-27] MEDS ORDERED: WARFARIN SOD 5 MG TAB PO SCH (16:00)
--- NOTE | 2016-08-27 17:35 | HHI.NPPN ---
Subjective History of Present Illness The patient is a 75 yo [place] male who is known to our outpatient services for ESRD on dialysis. Was brought to the ED yesterday evening by his who noted that he has had tremors, fatigue, and low grade fever. The patient himself is obtunded at the present as he has just received pain medications, so history is obtained via other records and outpatient dialysis facility. According to charts, his Gabapentin was recently increased from once daily to TID and seems to coincide with symptoms. He dialyzes TTS as outpatient and has not missed any sessions. According to outpatient nurse, he has had no events during recent dialysis sessions including no rigors or fever. He does have RIJ PermCath and was scheduled for outpatient consultation for AVF placement tomorrow. Interval History Patient awake but somewhat confused. by bedside. Review of Systems General Constitutional: Fatigue Objective Data Data 08/26/16 08/27/16 19:00 07:00 Intake Total 420 ml 480 ml Output Total 0 ml 0 ml Balance 420 ml 480 ml Intake Oral 420 ml 480 ml IV Total 0 ml 0 ml Output Urine Total 0 ml 0 ml # Bowel Movements 0 0 Vital Signs Date Time Temp Pulse Resp B/P Pulse Ox O2 Delivery O2 Flow Rate FiO2 08/27/16 16:00 97.8 74 34 153/73 96 08/27/16 14:00 69 08/27/16 12:00 98.0 73 45 155/70 95 08/27/16 12:00 98.0 08/27/16 12:00 73 08/27/16 10:00 71 08/27/16 08:00 97.9 81 21 156/72 98 08/27/16 08:00 81 08/27/16 07:54 97 Nasal Cannula 2.00 08/27/16 06:00 70 08/27/16 04:00 75 08/27/16 04:00 99.5 78 23 159/77 96 08/27/16 02:00 76 08/27/16 00:00 99.4 80 25 156/72 95 08/27/16 00:00 78 08/26/16 22:00 77 08/26/16 20:23 95 Nasal Cannula 2.00 08/26/16 20:00 99.0 84 22 146/70 95 08/26/16 20:00 84 -: 08/25/16 0405 08/27/16 0517 Tubes & Lines: Perma-Cath Physical Exam General Appearance: Comfortable, Malnourished Eyes Eye Exam: Pupils Equal Throat Throat Exam: Oral Mucosa [place] & Moist Neck Neck Exam: Neck Supple, Trachea Midline Pulmonary Resp Exam: Clear Bilaterally, Breath Sounds Equal Cardiology CV Exam: Regular, Normal Sinus Rhythm Integumentary Skin Exam: Clear, Warm, Dry Extremeties Extremities Exam: No Edema Neurologic Neuro Exam: Awake, Speech Clear, Moving All Extremities Assessment/Plan Discussed Condition With: Patient, Spouse Problem List: (1) ESRD (end stage renal disease) on dialysis Plan: Hemodialysis tomorrow as ordered. Medications should be adjusted for the patient's estimated end stage renal disease if clinically indicated. Avoid Gadolinium i. (2) HTN (hypertension) Plan: Continue on home regimen (3) General weakness Plan: BCx neg x48h Reassess after HD tomorrow. Would avoid sedating medications if possible (4) Tremulousness Plan: Potentially related to increased Gabapentin use. Maximum daily dose of 300mg/24h or less depending on side effects. (5) Hypercalcemia Plan: Patient's calcium level is still significantly elevated. Uncertain as to etiology. Contributory factors may include immobility. Uncertain if the patient has primary versus secondary hyperparathyroidism at this point in time. Calcitonin has been ordered to try and improve calcium level. Vitamin D analogs on hold. Patient was being followed by urology as an outpatient however will check PSA level. Also check bone scan. Studies performed last admission showed no evidence of myeloma or elevation in PTH related protein level. Danita Maria MD August 27, 2016 17:35
[2016-08-27] MEDS: cefTRIAXone INJ 1,000 MG in SODIUM CHLORIDE 0.9% INJ 100 ML IV SCH (17:54)
[2016-08-27 19:17] LABS: CALCIUM-PROTEIN CORRECTED 10.6 MG/DL (8.5-10.1)
--- NOTE | 2016-08-27 21:37 | PD.ORT.PN ---
Subjective Subjective Remarks Patient in bed and resting comfortable. Reports mild left shoulder pain. Shoulder pain is at baseline. No history of recent trauma. Objective Vitals Vital Signs Date Time Temp Pulse Resp B/P Pulse Ox O2 Delivery O2 Flow Rate FiO2 08/27/16 18:00 79 08/27/16 16:00 97.8 74 34 153/73 96 08/27/16 14:00 69 08/27/16 12:00 98.0 73 45 155/70 95 08/27/16 12:00 98.0 08/27/16 12:00 73 08/27/16 10:00 71 08/27/16 08:00 97.9 81 21 156/72 98 08/27/16 08:00 81 08/27/16 07:54 97 Nasal Cannula 2.00 08/27/16 06:00 70 08/27/16 04:00 75 08/27/16 04:00 99.5 78 23 159/77 96 08/27/16 02:00 76 08/27/16 00:00 99.4 80 25 156/72 95 08/27/16 00:00 78 08/26/16 22:00 77 I/O 08/26/16 08/26/16 08/26/16 08/27/16 08/27/16 08/27/16 07:00 15:00 23:00 07:00 15:00 23:00 Intake Total 30 ml 420 ml 240 ml 240 ml 600 ml Output Total 50 ml 0 ml 0 ml 0 ml 150 ml Balance -20 ml 420 ml 240 ml 240 ml 450 ml Intake Oral 30 ml 420 ml 240 ml 240 ml 600 ml IV Total 0 ml 0 ml 0 ml 0 ml Output Urine Total 50 ml 0 ml 0 ml 0 ml 150 ml # Bowel Movements 0 0 0 0 3 Result Diagram: 08/25/16 0405 08/27/[address] scan of the shoulder reveal joint effusion with chronic rotator cuff arthropathy with subluxation of the humeral head. Objective Remarks Patient's slightly confused. No acute distress. Neck: No pain with any range of motion and neck. Pulmonary: Normal respiratory effort. Left upper extremity exam: Grossly neurovascularly intact. Tender to palpation around the shoulder girdle. Decreased passive range of motion. Active range of motion is limited secondary to pain and muscle weakness. External rotation 30, abduction 30, internal rotation 10. 2+ radial artery pulses. Good cap refill. Assessment & Plan Assessment and Plan 75-year-old male with significantly complicated past medical history and a poor surgical candidate. This patient is known to me and currently following up as an outpatient for conservative treatment of left rotator cuff arthropathy. His condition is chronic, as are his shoulder pain and joint effusion. I will continue to treat him conservatively. There is no need for any surgical intervention. There is no evidence of septic arthritis. This patient is scheduled to be seen in my office next week and I recommend continued outpatient follow-up. f/u 1-2 wks. PT for left shoulder ROM as tolerated. Gaurang Feliciano Jr., MD August 27, 2016 21:37
--- NOTE | 2016-08-27 21:38 | PD.CONS ---
cc: Gaurang Felicaino Jr., MD HPI Service [facility] Consult Requested By Primary Care Physician Nikolai Carrasquillo M.D. Admission Diagnosis Generalized weakness, hyperkalemia, hemodialysis patient Diagnoses: (1) Mental status change (2) General weakness (3) Febrile illness (4) ESRD (end stage renal disease) on dialysis (5) Acute hyperkalemia (6) Atrial fibrillation (7) HTN (hypertension) (8) Shoulder pain, acute Chief Complaint: left shoulder pain Past Family Social History Allergies: Coded Allergies: No Known Allergies (Verified , 08/23/16) Active Ordered Medications Current Medications Medications (Trade) Dose Ordered Sig/Terra Route Start Time Stop Time Status Last Admin (NS Flush) 2 ml UNSCH PRN IVF 08/23/16 18:45 (Tylenol) 500 mg Q6H PRN PO 08/23/16 21:45 (Lipitor) 10 mg HS PO 08/24/16 21:00 08/26/16 20:42 (Proscar) 5 mg DAILY PO 08/24/16 09:00 08/27/16 09:56 (Flonase Mario Spr) 1 spray DAILY EACH NARE 08/24/16 09:00 08/27/16 09:59 (Neurontin) 100 mg BID PO 08/24/16 09:00 08/27/16 09:57 (Apresoline) 75 mg BID PO 08/24/16 09:00 08/27/16 09:57 (Fosrenol Chew) 1,000 mg TID CHEW 08/24/16 09:00 08/27/16 17:54 (Procardia Xl) 60 mg BID PO 08/24/16 09:00 08/27/16 09:57 (SEROquel) 25 mg BID PO 08/24/16 09:00 08/27/16 09:57 (Flomax) 0.4 mg DAILY PO 08/24/16 09:00 08/27/16 09:57 (Nephrocaps) 1 cap DAILY PO 08/24/16 09:00 08/27/16 10:02 Clonidine 0.1 mg 0.1 mg Q6H PRN PO 08/23/16 22:00 (NS 1000 ml Inj) 1,000 ml @ 0 mls/hr Q0M PRN IV 08/24/16 09:15 08/26/16 12:46 Heparin Sodium (Porcine) 8000 units 8,000 units UNSCH PRN IVF 08/24/16 09:15 Sodium Chloride 1,000 ml @ 200 mls/hr Q5H PRN IV 08/24/16 09:15 (NS 1000 ml Inj) 1,000 ml @ 0 mls/hr Q0M PRN IV 08/24/16 09:15 (Mannitol Inj) 12.5 gm UNSCH PRN IV 08/24/16 09:15 (Albumin 25% Inj) 25 gm UNSCH PRN IV 08/24/16 09:15 08/25/16 14:29 (NS Flush) 5 ml UNSCH PRN IV FLUSH 08/24/16 09:15 (Heparin Inj) UNSCH PRN .XX 08/24/16 09:15 08/26/16 12:46 (Gentamicin (Dialysis) Inj) 20 mg UNSCH PRN IV 08/24/16 09:15 08/26/16 12:46 (Zofran Inj) 4 mg UNSCH PRN IV 08/24/16 09:15 (Tylenol) 650 mg UNSCH PRN PO 08/24/16 09:15 08/26/16 01:20 (Benadryl) 25 mg UNSCH PRN PO 08/24/16 09:15 (Nitrostat Sl) 0.4 mg UNSCH PRN SL 08/24/16 09:15 (Catapres) 0.1 mg UNSCH PRN PO 08/24/16 09:15 Gelatin 1 foam 1 foam UNSCH PRN TOP 08/24/16 09:15 (Rocephin Inj/NS Inj) 100 ml @ 200 mls/hr Q24H IV 08/24/16 18:00 08/27/16 17:54 Miscellaneous Information Patient in critical care unit? Ass... Q361D .XX 08/24/16 20:00 08/24/16 20:00 (Chlorhexidine 2% Cloth) 3 pack DAILY@04 TOPICAL 08/25/16 04:00 08/29/16 04:01 08/26/16 23:58 (Chlorhexidine 2% Cloth) 3 pack UNSCH PRN TOPICAL 08/24/16 20:00 08/29/16 19:46 (Percocet 5-325 Mg) 1 tab Q6H PRN PO 08/26/16 15:45 08/26/16 16:04 (Miralax) 17 gm DAILY PO 08/27/16 09:00 08/27/16 09:57 (D50w (Vial) Inj) 25 ml UNSCH PRN IV PUSH 08/26/16 20:15 (Glucagon Inj) 1 mg UNSCH PRN OTHER 08/26/16 20:15 (Coumadin) 5 mg MoWeFr@16 PO 08/27/16 16:00 08/27/16 17:54 (Coumadin) 7.5 mg SuTuThSa@16 PO 08/28/16 16:00 (Miacalcin Inj) 200 units Q12HR SQ 08/27/16 21:00 08/29/16 21:00 Reported Meds & Active Scripts Active Nephro-Estephanie Rx (Vitamin B Cmplx/Vit C/Folic AC) 1 Tab 1 Cap PO DAILY 30 Days Quetiapine (Quetiapine Fumarate) 25 Mg Tab 25 Mg PO BID 30 Days Nifedipine ER 24 HR (Nifedipine) 60 Mg Tab 60 Mg PO BID 60 Days Fosrenol (Lanthanum Carbonate) 500 Mg Tab 1,000 Mg CHEW TID 30 Days Gabapentin 100 Mg Cap 100 Mg PO BID 60 Days Hydralazine (Hydralazine HCl) 25 Mg Tab 75 Mg PO BID Take with a meal Warfarin 7.5 Mg Tab 7.5 Mg PO TUTHSA TAKE ONE TAB (7.5 MG) , , TUE Warfarin 5 Mg Tab 5 Mg PO SUMOWEFR TAKE 1 TAB (5MG) TUE, TUE, TUESDAY, TUESDAY Percocet (Oxycodone-Acetaminophen) 5-325 mg Tab 1 Tab PO Q6H PRN Reported Benazepril (Benazepril HCl) 40 Mg Tab 40 Mg PO DAILY Calcium Acetate (Phosphate Binder) 667 Mg Cap 1,334 Mg PO TID Diphenhydramine (Diphenhydramine HCl) 25 Mg Tab 25 Mg PO Q6H PRN Flomax (Tamsulosin HCl) 0.4 Mg Cap 0.4 Mg PO DAILY Fluticasone Nasal [place] 50 Mcg/Act Naspr 50 Mcg EACH NARE DAILY 50 mcg/spray Proscar (Finasteride) 5 Mg Tab 5 Mg PO DAILY Do not crush. Lipitor (Atorvastatin Calcium) 10 Mg Tab 10 Mg PO HS Physical Exam Vital Signs Vital Signs Date Time Temp Pulse Resp B/P Pulse Ox O2 Delivery O2 Flow Rate FiO2 08/27/16 18:00 79 08/27/16 16:00 97.8 74 34 153/73 96 08/27/16 14:00 69 08/27/16 12:00 98.0 73 45 155/70 95 08/27/16 12:00 98.0 08/27/16 12:00 73 08/27/16 10:00 71 08/27/16 08:00 97.9 81 21 156/72 98 08/27/16 08:00 81 08/27/16 07:54 97 Nasal Cannula 2.00 08/27/16 06:00 70 08/27/16 04:00 75 08/27/16 04:00 99.5 78 23 159/77 96 08/27/16 02:00 76 08/27/16 00:00 99.4 80 25 156/72 95 08/27/16 00:00 78 08/26/16 22:00 77 Laboratory Laboratory Tests Test 08/27/16 08/27/16 05:17 18:07 Sodium Level 138 Potassium Level 3.8 Chloride Level 93 Carbon Dioxide Level 34.3 Anion Gap 11 Blood Urea Nitrogen 38 Creatinine 3.49 Estimat Glomerular Filtration 17 Rate Random Glucose 224 Calcium Level 11.9 Protein Corrected Calcium 10.6 Total Protein 9.1 Date/Time Procedure Status Source Growth 08/23/16 18:50 Aerobic Blood Culture - Preliminary Resulted Blood Peripheral NO GROWTH IN 4 DAYS 08/23/16 18:50 Anaerobic Blood Culture - Preliminary Resulted Blood Peripheral NO GROWTH IN 4 DAYS Result Diagram: 08/25/16 0405 08/27/16 0517 Assessment & Plan Assessment and Plan SEE DICTATED PROGRESS NOTE Gaurang Feliciano Jr., MD August 27, 2016 21:37
[2016-08-27] MEDS: ATORVASTATIN 10 MG TAB PO SCH (22:07)
[2016-08-27] MEDS: CALCITONIN SALMON INJ 400 UNITS/2 ML VIAL SQ SCH (22:27)
[2016-08-28] VITALS: BP 133/60; PULSE 73; RESP 20; TEMP 97.8; O2SAT 95
[2016-08-28 04:00] VITALS: BP 158/73; PULSE 70; RESP 20; TEMP 97.6; O2SAT 94
[2016-08-28] MEDS: CHLORHEXIDINE GLUCONATE 2 % 1 PACK (2 CLOTHS)(taper/protocol) TOPICAL SCH (04:00)
[2016-08-28 05:39] LABS: INTERNATIONAL NORMALIZED RATIO 3.7 RATIO; PROTHROMBIN TIME - PATIENT 43.6 SEC (9.8-11.6)
[2016-08-28] MEDS: LOW DOSE INSULIN NOVOLOG SUPPLEMENTAL SCALE SQ SCH ×4 (05:41→21:31)
[2016-08-28 06:02] LABS: BICARBONATE 27.5 MEQ/L (21.0-32.0); POTASSIUM 4.2 MEQ/L (3.5-5.1)
[2016-08-28 08:00] VITALS: BP 143/73; PULSE 74; RESP 18; TEMP 98; O2SAT 94
[2016-08-28] MEDS: SODIUM CHLOR 0.9% 1000 ML INJ 1,000 ML IV PRN (11:15)
[2016-08-28] MEDS: GENTAMICIN SULFATE (DIALYSIS USE ONLY) 20 MG/2 ML VIAL IV PRN (11:15)
[2016-08-28] MEDS: HEPARIN SODIUM - IV 10,000 UNITS/10 ML VIAL PRN (11:15)
[2016-08-28 12:00] VITALS: BP 133/61; PULSE 69; RESP 16; TEMP 96.7; O2SAT 94
[2016-08-28] MEDS: POLYETHYLENE GLYCOL 17 GM PKG PO SCH (12:37)
[2016-08-28] MEDS: QUEtiapine FUMARATE 25 MG TAB PO SCH ×2 (12:37→21:00)
[2016-08-28] MEDS: NIFEdipine 60 MG SUSTAINED RELEASE TAB PO SCH ×3 (12:37→23:17)
[2016-08-28] MEDS: FINASTERIDE 5 MG TAB PO SCH (12:37)
[2016-08-28] MEDS: VITAMIN B CMPLX/VITC/FOLIC AC CAP PO SCH (12:37)
[2016-08-28] MEDS: GABAPENTIN 100 MG CAP PO SCH ×2 (12:37→21:00)
[2016-08-28] MEDS: oxyCODONE/ACETAMINOPHEN 5 MG/325 MG TAB PO PRN ×2 (12:38→18:29)
[2016-08-28] MEDS: LANTHANUM CARBONATE 500 MG CHEWABLE TABLET CHEW SCH ×3 (12:38→18:04)
[2016-08-28] MEDS: FLUTICASONE PROPIONATE 50 MCG/ACT 16 GM NASAL SPRAY EACH NARE SCH (12:38)
[2016-08-28] MEDS: TAMSULOSIN HCL 0.4 MG CAP PO SCH (12:39)
--- NOTE | 2016-08-28 12:39 | HHI.NPPN ---
Subjective History of Present Illness The patient is a 75 yo [place] male who is known to our outpatient services for ESRD on dialysis. Was brought to the ED yesterday evening by his who noted that he has had tremors, fatigue, and low grade fever. The patient himself is obtunded at the present as he has just received pain medications, so history is obtained via other records and outpatient dialysis facility. According to charts, his Gabapentin was recently increased from once daily to TID and seems to coincide with symptoms. He dialyzes TTS as outpatient and has not missed any sessions. According to outpatient nurse, he has had no events during recent dialysis sessions including no rigors or fever. He does have RIJ PermCath and was scheduled for outpatient consultation for AVF placement tomorrow. Interval History Patient seen during dialysis. Dialysis access working well. Patient appears to be alert and orientated. No verbal complaints. Review of Systems General Constitutional: Fatigue Objective Data Data 08/27/16 08/28/16 19:00 07:00 Intake Total 600 ml 240 ml Output Total 150 ml 200 ml Balance 450 ml 40 ml Intake Oral 600 ml 240 ml Output Urine Total 150 ml 200 ml Stool Total 0 ml # Bowel Movements 3 0 Vital Signs Date Time Temp Pulse Resp B/P Pulse Ox O2 Delivery O2 Flow Rate FiO2 08/28/16 08:00 98.0 74 18 143/73 94 08/28/16 04:00 97.6 70 20 158/73 94 08/28/16 00:00 97.8 73 20 133/60 95 08/27/16 20:00 97.2 70 20 126/60 97 08/27/16 18:00 79 08/27/16 16:00 97.8 74 34 153/73 96 08/27/16 14:00 69 -: 08/25/16 0405 08/28/16 0429 Tubes & Lines: Perma-Cath Physical Exam General Appearance: Comfortable, Malnourished Eyes Eye Exam: Pupils Equal Throat Throat Exam: Oral Mucosa [place] & Moist Neck Neck Exam: Neck Supple, Trachea Midline Pulmonary Resp Exam: Clear Bilaterally, Breath Sounds Equal Cardiology CV Exam: Regular, Normal Sinus Rhythm Integumentary Skin Exam: Clear, Warm, Dry Extremeties Extremities Exam: No Edema Neurologic Neuro Exam: Awake, Speech Clear, Moving All Extremities Psychiatric Psych Exam: Appropriate Responses Assessment/Plan Discussed Condition With: Patient, Spouse Problem List: (1) ESRD (end stage renal disease) on dialysis Plan: Patient seen during dialysis. Appears to be tolerating treatment well. Medications should be adjusted for the patient's estimated end stage renal disease if clinically indicated. Avoid Gadolinium i. (2) HTN (hypertension) Plan: Continue on home regimen (3) General weakness Plan: Blood cultures remaining negative. (4) Hypercalcemia Plan: Calcium level is trending down. Unfortunately a 2.0 calcium bath is not available at this facility presently. Await bone scan. PSA level is slightly elevated. We'll defer to primary care physician if they feel urology opinion required. Studies performed last admission showed no evidence of myeloma or elevation in PTH related protein level. Danita Maria MD August 28, 2016 12:39
[2016-08-28] MEDS: hydrALAZINE HCL 25 MG TAB PO SCH ×2 (12:40→21:00)
[2016-08-28] MEDS: CALCITONIN SALMON INJ 400 UNITS/2 ML VIAL SQ SCH ×2 (12:40→21:20)
--- NOTE | 2016-08-28 15:18 | HHI.PR ---
Subjective Remarks doing ok. seen in HD Objective Vitals heart reg lung cta abd s/nt ext no edema right permcath. Vital Signs Date Time Temp Pulse Resp B/P Pulse Ox O2 Delivery O2 Flow Rate FiO2 08/28/16 12:00 96.7 69 16 133/61 94 08/28/16 08:00 98.0 74 18 143/73 94 08/28/16 04:00 97.6 70 20 158/73 94 08/28/16 00:00 97.8 73 20 133/60 95 08/27/16 20:00 97.2 70 20 126/60 97 08/27/16 18:00 79 08/27/16 16:00 97.8 74 34 153/73 96 08/27/16 08/27/16 08/28/16 14:59 22:59 06:59 Intake Total 600 ml 120 ml 120 ml Output Total 150 ml 100 ml 100 ml Balance 450 ml 20 ml 20 ml Intake Oral 600 ml 120 ml 120 ml Output Urine Total 150 ml 100 ml 100 ml Stool Total 0 ml # Bowel Movements 3 0 Result Diagram: 08/25/16 0405 08/28/16 0429 Imaging Last 72 hours Impressions Chest X-Ray 08/23/16 1844 Signed Impressions: Service Date/Time: Tuesday, August 23, 2016 18:58 - CONCLUSION: 1. Left basilar atelectasis. 2. Cardiomegaly. João Fernandez MD A/P Problem List: (1) Mental status change Status: Acute Plan: Pt is 75 yo known to our [facility] [place]. ESRD converted to HD earlier this yr from PD Admitted in June for severe htn, encephalopathy, and concern for peritonitis Presents again with low grade fever, general weakness, and now AMS/lethargy and tremors [place] to have metabolic encephalopathy and azotemia. r/o sepsis. ?hypercalcemia related. ..source of hypercalcemia unclear. r/o bone mets and primary hyperthyroidism. Also c/o worsening pain in left shoulder. appears to have effusion in the left shoulder Improving mental status after HD. renal adjusting his prescription and addressing hypercalcemia cont rocephin. ngtd on cx's fever down f/u bone scan asked Ortho to eval his left shoulder pain and effusion. Gave solumedrol for pain. no intervention by ortho. PT today resumed diet cont home medications dvt prophlylaxis. - (2) General weakness Status: Acute Plan: see above (3) Febrile illness Status: Acute Plan: - see above (4) ESRD (end stage renal disease) on dialysis Status: Chronic Plan: - Appreciate nephrology consult. - HD , , (5) Acute hyperkalemia Status: Acute Plan: see above (6) Atrial fibrillation Status: Chronic Plan: - Rate controlled. - Continue warfarin, - INR subtherapeutic, monitor daily (7) HTN (hypertension) Status: Chronic Plan: Somewhat difficult to control in the past. continue meds (8) Shoulder pain, acute Status: Acute Plan: see above Javy Hudson MD August 28, 2016 15:18
[2016-08-28 16:00] VITALS: BP 136/64; PULSE 68; RESP 16; TEMP 98.1; O2SAT 94
[2016-08-28] MEDS ORDERED: WARFARIN SOD 7.5 MG TAB PO SCH (16:00)
[2016-08-28] MEDS: cefTRIAXone INJ 1,000 MG in SODIUM CHLORIDE 0.9% INJ 100 ML IV SCH (18:01)
--- NOTE | 2016-08-28 18:07 | RADRPT ---
EXAM DATE/TIME: 08/28/2016 16:22 [place] COMPARISON: WRIST RIGHT COMPLETE ([id number]), June 29, 2016, 8:24. CT ABDOMEN & PELVIS W/O CONTRAST, June 15 17, 10:56. CT SHOULDER LEFT W/O CONTRAST, August 24, 2016, 19:46. PRIOR BONE SCANS: No correlative bone scan available for comparison. INDICATIONS : Renal cell carcinoma. DOSE: 30.1 mCi Tc99m MDP IV IMAGING: SPECT/CT imaging with fusion was performed. RADIATION DOSE: 4.78 CTDIvol (mGy) MEDICAL HISTORY : Renal disease, end stage. Diverticulitis. Hypertension. SURGICAL HISTORY : Splenectomy. Forearm plate, right. Rotator cuff, right. ENCOUNTER: Initial ACUITY: 4 - 6 months PAIN SCALE: 4/10 LOCATION: Bilateral abdomen. TECHNIQUE: Three hours post intravenous administration of radiotracer, whole body bone scan imaging was performe d. FINDINGS: The patient has spurring seen in the thoracic and lumbar spine associated with some increased activit y related to the spurring. There are also multiple areas of uptake within several ribs. These all a ppear to be associated with fractures in various stages of healing. There is some increased activity seen at the left acromioclavicular joint region at the anterior acromion and distal clavicle. This appearance is most suggestive of arthritic change. A suspicious pattern to suggest metastatic diseas e is not seen. There does appear to be some focal lucency at the medial left clavicle and the latera l left clavicle. There does appear to be a mass at the posterior superomedial left kidney more fully evaluated on the standard CT of the abdomen and pelvis performed on 06/15/2016. CONCLUSION: Scattered areas of increased uptake seen all of which appear to be related to either degenerative spu rring or posttraumatic change. A pattern suspicious of metastatic disease is not seen. Willy Cevallos MD on August 28, 2016 at 17:50 Board Certified Radiologist. This report was verified electronically.
[2016-08-28 20:00] VITALS: BP 150/72; PULSE 76; RESP 18; TEMP 97.4; O2SAT 96
[2016-08-28] MEDS: ATORVASTATIN 10 MG TAB PO SCH (21:00)
[2016-08-29] VITALS (9 sets, daily range): BP systolic 120–160; BP diastolic 67–78; PULSE 61–81; RESP 14–18; TEMP 97.3–98.5; O2SAT 93–97
[2016-08-29] MEDS: CHLORHEXIDINE GLUCONATE 2 % 1 PACK (2 CLOTHS)(taper/protocol) TOPICAL SCH (04:00)
[2016-08-29] MEDS: LOW DOSE INSULIN NOVOLOG SUPPLEMENTAL SCALE SQ SCH ×4 (06:36→21:00)
[2016-08-29 07:22] LABS: INTERNATIONAL NORMALIZED RATIO 4.7 RATIO; PROTHROMBIN TIME - PATIENT 55.5 SEC (9.8-11.6)
[2016-08-29 07:44] LABS: BICARBONATE 29.8 MEQ/L (21.0-32.0); POTASSIUM 4.2 MEQ/L (3.5-5.1)
[2016-08-29] MEDS: CALCITONIN SALMON INJ 400 UNITS/2 ML VIAL SQ SCH ×2 (08:35→21:21)
[2016-08-29] MEDS: LANTHANUM CARBONATE 500 MG CHEWABLE TABLET CHEW SCH ×3 (08:36→17:09)
[2016-08-29] MEDS: TAMSULOSIN HCL 0.4 MG CAP PO SCH (08:36)
[2016-08-29] MEDS: QUEtiapine FUMARATE 25 MG TAB PO SCH ×2 (08:36→21:00)
[2016-08-29] MEDS: FLUTICASONE PROPIONATE 50 MCG/ACT 16 GM NASAL SPRAY EACH NARE SCH (08:36)
[2016-08-29] MEDS: VITAMIN B CMPLX/VITC/FOLIC AC CAP PO SCH (08:36)
[2016-08-29] MEDS: hydrALAZINE HCL 25 MG TAB PO SCH ×2 (08:36→21:00)
[2016-08-29] MEDS: NIFEdipine 60 MG SUSTAINED RELEASE TAB PO SCH ×2 (08:36→21:21)
[2016-08-29] MEDS: POLYETHYLENE GLYCOL 17 GM PKG PO SCH (08:36)
[2016-08-29] MEDS: GABAPENTIN 100 MG CAP PO SCH ×2 (08:36→21:00)
[2016-08-29] MEDS: FINASTERIDE 5 MG TAB PO SCH (08:36)
--- NOTE | 2016-08-29 14:56 | HHI.PR ---
Subjective Remarks more alert. says left shoulder feels bettter. Objective Vitals heart reg lungcta abd s/nt ext no edema right permcath. Vital Signs Date Time Temp Pulse Resp B/P Pulse Ox O2 Delivery O2 Flow Rate FiO2 08/29/16 12:00 98.2 69 16 160/76 93 08/29/16 11:05 97 Nasal Cannula 2.00 08/29/16 08:01 77 08/29/16 08:00 98.4 64 14 150/78 93 08/29/16 04:00 98.5 78 18 157/77 93 08/29/16 00:00 97.3 81 18 151/70 96 08/28/16 20:00 97.4 76 18 150/72 96 08/28/16 16:00 98.1 68 16 136/64 94 08/28/16 08/28/16 08/29/16 14:59 22:59 06:59 Intake Total 120 ml 220 ml 120 ml Output Total 2000 ml 75 ml Balance -1880 ml 145 ml 120 ml Intake Oral 120 ml 120 ml 120 ml IV Total 0 ml 100 ml Output Urine Total 0 ml 75 ml Hemodialysis 2000 ml # Voids 0 # Bowel Movements 0 0 Result Diagram: 08/25/16 0405 08/29/16 0621 Imaging Last 72 hours Impressions Chest X-Ray 08/23/16 1844 Signed Impressions: Service Date/Time: Tuesday, August 23, 2016 18:58 - CONCLUSION: 1. Left basilar atelectasis. 2. Cardiomegaly. João Fernandez MD A/P Problem List: (1) Mental status change Status: Acute Plan: Pt is 75 yo known [place] [facility] [place] converted to HD earlier this yr from PD Admitted in June for severe htn, encephalopathy, and concern for peritonitis Presents again with low grade fever, general weakness, and now AMS/lethargy and tremors [place] to have metabolic encephalopathy and azotemia. r/o sepsis. ?hypercalcemia related. ..source of hypercalcemia unclear. r/o bone mets and primary hyperthyroidism. bone scan not consistent with metastatic lesions Also c/o worsening pain in left shoulder. appears to have effusion in the left shoulder Improving mental status after HD. renal adjusting his prescription and addressing hypercalcemia cont rocephin. ngtd on cx's fever down asked Ortho to eval his left shoulder pain and effusion. Gave solumedrol for pain. no intervention by ortho. hold coumadin and recheck inr. no bleeding reported. PT today resumed diet cont home medications dvt prophlylaxis. -Plan for d/c home once renally stable. - (2) General weakness Status: Acute Plan: see above (3) Febrile illness Status: Acute Plan: - see above (4) ESRD (end stage renal disease) on dialysis Status: Chronic Plan: - Appreciate nephrology consult. - HD , (5) Acute hyperkalemia Status: Acute Plan: see above (6) Atrial fibrillation Status: Chronic Plan: hold coumadin (7) HTN (hypertension) Status: Chronic Plan: Somewhat difficult to control in the past. continue meds (8) Shoulder pain, acute Status: Acute Plan: see above Javy Hudson MD August 29, 2016 14:56 Javy Hudson MD August 29, 2016 14:56
[2016-08-29] MEDS: cefTRIAXone INJ 1,000 MG in SODIUM CHLORIDE 0.9% INJ 100 ML IV SCH (17:09)
[2016-08-29] MEDS: ATORVASTATIN 10 MG TAB PO SCH (21:00)
[2016-08-30] VITALS (7 sets, daily range): BP systolic 154–189; BP diastolic 70–86; PULSE 55–69; RESP 16–22; TEMP 95.9–98.5; O2SAT 93–96
[2016-08-30] MEDS: LOW DOSE INSULIN NOVOLOG SUPPLEMENTAL SCALE SQ SCH ×4 (06:45→21:00)
[2016-08-30] MEDS: QUEtiapine FUMARATE 25 MG TAB PO SCH ×2 (07:26→21:17)
[2016-08-30] MEDS: LANTHANUM CARBONATE 500 MG CHEWABLE TABLET CHEW SCH ×3 (07:26→17:15)
[2016-08-30] MEDS: FINASTERIDE 5 MG TAB PO SCH (07:26)
[2016-08-30] MEDS: hydrALAZINE HCL 25 MG TAB PO SCH ×3 (07:26→17:06)
[2016-08-30] MEDS: NIFEdipine 60 MG SUSTAINED RELEASE TAB PO SCH ×2 (07:26→21:17)
[2016-08-30] MEDS: VITAMIN B CMPLX/VITC/FOLIC AC CAP PO SCH (07:27)
[2016-08-30] MEDS: GABAPENTIN 100 MG CAP PO SCH ×2 (07:27→21:17)
[2016-08-30] MEDS: TAMSULOSIN HCL 0.4 MG CAP PO SCH (07:27)
[2016-08-30] MEDS: POLYETHYLENE GLYCOL 17 GM PKG PO SCH (07:28)
[2016-08-30] MEDS: FLUTICASONE PROPIONATE 50 MCG/ACT 16 GM NASAL SPRAY EACH NARE SCH (07:29)
[2016-08-30 09:45] LABS: INTERNATIONAL NORMALIZED RATIO 3.2 RATIO; PROTHROMBIN TIME - PATIENT 37.5 SEC (9.8-11.6)
[2016-08-30 10:09] LABS: BICARBONATE 28.5 MEQ/L (21.0-32.0); POTASSIUM 4.2 MEQ/L (3.5-5.1)
--- NOTE | 2016-08-30 10:34 | HHI.NPPN ---
Subjective History of Present Illness The patient is a 75 yo [place] male who is known to our outpatient services for ESRD on dialysis. Was brought to the ED yesterday evening by his who noted that he has had tremors, fatigue, and low grade fever. The patient himself is obtunded at the present as he has just received pain medications, so history is obtained via other records and outpatient dialysis facility. According to charts, his Gabapentin was recently increased from once daily to TID and seems to coincide with symptoms. He dialyzes TTS as outpatient and has not missed any sessions. According to outpatient nurse, he has had no events during recent dialysis sessions including no rigors or fever. He does have RIJ PermCath and was scheduled for outpatient consultation for AVF placement tomorrow. Interval History Resting when I entered room [place]. No complaints Review of Systems General Constitutional: Fatigue Objective Data Data 08/29/16 08/30/16 19:00 07:00 Intake Total 360 ml 120 ml Output Total 250 ml 0 ml Balance 110 ml 120 ml Intake Oral 360 ml 120 ml Output Urine Total 250 ml 0 ml # Bowel Movements 1 0 Vital Signs Date Time Temp Pulse Resp B/P Pulse Ox O2 Delivery O2 Flow Rate FiO2 08/30/16 08:23 94 Nasal Cannula 2.00 08/30/16 08:00 96.3 68 16 189/86 93 08/30/16 04:00 98.5 68 18 154/78 94 08/30/16 00:00 98.4 62 18 156/70 94 08/29/16 20:00 98.2 70 18 142/74 96 08/29/16 19:58 61 08/29/16 16:00 97.4 70 18 120/67 94 08/29/16 12:00 98.2 69 16 160/76 93 08/29/16 11:05 97 Nasal Cannula 2.00 -: 08/30/16 0859 Tubes & Lines: Perma-Cath Medication Review Current Medications Medications (Trade) Dose Ordered Sig/Terra Route Start Time Stop Time Status Last Admin (NS Flush) 2 ml UNSCH PRN IVF 08/23/16 18:45 (Tylenol) 500 mg Q6H PRN PO 08/23/16 21:45 (Lipitor) 10 mg HS PO 08/24/16 21:00 08/27/16 22:07 (Proscar) 5 mg DAILY PO 08/24/16 09:00 08/30/16 07:26 (Flonase Mario Spr) 1 spray DAILY EACH NARE 08/24/16 09:00 08/30/16 07:29 (Neurontin) 100 mg BID PO 08/24/16 09:00 08/30/16 07:27 (Apresoline) 75 mg BID PO 08/24/16 09:00 08/30/16 07:26 (Fosrenol Chew) 1,000 mg TID CHEW 08/24/16 09:00 08/29/16 17:09 (Procardia Xl) 60 mg BID PO 08/24/16 09:00 08/30/16 07:26 (SEROquel) 25 mg BID PO 08/24/16 09:00 08/30/16 07:26 (Flomax) 0.4 mg DAILY PO 08/24/16 09:00 08/30/16 07:27 (Nephrocaps) 1 cap DAILY PO 08/24/16 09:00 08/30/16 07:27 Clonidine 0.1 mg 0.1 mg Q6H PRN PO 08/23/16 22:00 (NS 1000 ml Inj) 1,000 ml @ 0 mls/hr Q0M PRN IV 08/24/16 09:15 08/26/16 12:46 Heparin Sodium (Porcine) 8000 units 8,000 units UNSCH PRN IVF 08/24/16 09:15 Sodium Chloride 1,000 ml @ 200 mls/hr Q5H PRN IV 08/24/16 09:15 08/28/16 11:15 (NS 1000 ml Inj) 1,000 ml @ 0 mls/hr Q0M PRN IV 08/24/16 09:15 (Mannitol Inj) 12.5 gm UNSCH PRN IV 08/24/16 09:15 (Albumin 25% Inj) 25 gm UNSCH PRN IV 08/24/16 09:15 08/25/16 14:29 (NS Flush) 5 ml UNSCH PRN IV FLUSH 08/24/16 09:15 (Heparin Inj) UNSCH PRN .XX 08/24/16 09:15 08/28/16 11:15 (Gentamicin (Dialysis) Inj) 20 mg UNSCH PRN IV 08/24/16 09:15 08/28/16 11:15 (Zofran Inj) 4 mg UNSCH PRN IV 08/24/16 09:15 (Tylenol) 650 mg UNSCH PRN PO 08/24/16 09:15 08/26/16 01:20 (Benadryl) 25 mg UNSCH PRN PO 08/24/16 09:15 (Nitrostat Sl) 0.4 mg UNSCH PRN SL 08/24/16 09:15 (Catapres) 0.1 mg UNSCH PRN PO 08/24/16 09:15 Gelatin 1 foam 1 foam UNSCH PRN TOP 08/24/16 09:15 (Rocephin Inj/NS Inj) 100 ml @ 200 mls/hr Q24H IV 08/24/16 18:00 08/29/16 17:09 Miscellaneous Information Patient in critical care unit? Ass... Q361D .XX 08/24/16 20:00 08/24/16 20:00 (Percocet 5-325 Mg) 1 tab Q6H PRN PO 08/26/16 15:45 08/28/16 18:29 (Miralax) 17 gm DAILY PO 08/27/16 09:00 08/30/16 07:28 (D50w (Vial) Inj) 25 ml UNSCH PRN IV PUSH 08/26/16 20:15 (Glucagon Inj) 1 mg UNSCH PRN OTHER 08/26/16 20:15 Physical Exam General Appearance: Comfortable, Malnourished Eyes Eye Exam: Pupils Equal Throat Throat Exam: Oral Mucosa [place] & Moist Neck Neck Exam: Neck Supple, Trachea Midline Pulmonary Resp Exam: Clear Bilaterally, Breath Sounds Equal Cardiology CV Exam: Regular, Normal Sinus Rhythm Integumentary Skin Exam: Clear, Warm, Dry Extremeties Extremities Exam: No Edema Neurologic Neuro Exam: Awake, Speech Clear, Moving All Extremities Psychiatric Psych Exam: Appropriate Responses Assessment/Plan Discussed Condition With: Patient, Spouse Problem List: (1) ESRD (end stage renal disease) on dialysis Plan: Continue HD on TTS schedule. Mentation improving with treatment Medications should be adjusted for the patient's estimated end stage renal disease if clinically indicated. Avoid Gadolinium i. (2) HTN (hypertension) Plan: Increase Hydralazine to TID (3) General weakness Plan: Blood cultures remaining negative. (4) Hypercalcemia Plan: Calcium level stable Unfortunately a 2.0 calcium bath is not available at this facility presently. Bone scan negative s/p Calcitonin PSA level is slightly elevated. We'll defer to primary care physician if they feel urology opinion required. Studies performed last admission showed no evidence of myeloma or elevation in PTH related protein level. Isis Herman August 30, 2016 10:34
--- NOTE | 2016-08-30 15:51 | HHI.PR ---
Subjective Remarks No new complaints. Objective Vitals Vital Signs Date Time Temp Pulse Resp B/P Pulse Ox O2 Delivery O2 Flow Rate FiO2 08/30/16 12:00 95.9 67 16 172/81 93 08/30/16 08:23 94 Nasal Cannula 2.00 08/30/16 08:00 96.3 68 16 189/86 93 08/30/16 04:00 98.5 68 18 154/78 94 08/30/16 00:00 98.4 62 18 156/70 94 08/29/16 20:00 98.2 70 18 142/74 96 08/29/16 19:58 61 08/29/16 16:00 97.4 70 18 120/67 94 08/29/16 08/29/16 08/30/16 15:00 23:00 07:00 Intake Total 360 ml 120 ml 0 ml Output Total 250 ml 0 ml 0 ml Balance 110 ml 120 ml 0 ml Intake Oral 360 ml 120 ml 0 ml Output Urine Total 250 ml 0 ml 0 ml # Bowel Movements 1 0 0 Result Diagram: 08/30/16 0859 Imaging Last 72 hours Impressions Chest X-Ray 08/23/16 1844 Signed Impressions: Service Date/Time: Tuesday, August 23, 2016 18:58 - CONCLUSION: 1. Left basilar atelectasis. 2. Cardiomegaly. João Fernandez MD Objective Remarks GENERAL: This is a well-nourished, well-developed patient, in no apparent distress. CARDIOVASCULAR: Regular rate and rhythm without murmurs, gallops, or rubs. RESPIRATORY: Clear to auscultation. Breath sounds equal bilaterally. No wheezes , rales, or rhonchi. GASTROINTESTINAL: Abdomen soft, non-tender, nondistended. Normal active bowel sounds MUSCULOSKELETAL: Extremities without clubbing, cyanosis, or edema. NEURO: Alert & Oriented x4 to person, place, time, situation. Moves all ext x4 A/P Problem List: (1) Mental status change Status: Acute Plan: Pt is 75 yo known to our [facility] [place]. - ESRD converted to HD earlier this yr from PD - Admitted in June for severe htn, encephalopathy, and concern for peritonitis - Presents again with low grade fever, general weakness, and now AMS/lethargy and tremors - [place] to have metabolic encephalopathy and azotemia. r/o sepsis. ? hypercalcemia related. ..source of hypercalcemia unclear. r/o bone mets and primary hyperthyroidism. bone scan not consistent with metastatic lesions - received Miacalcin 08/29 - Also c/o worsening pain in left shoulder. appears to have effusion in the left shoulder - Improving mental status after HD. renal adjusting his prescription and addressing hypercalcemia - cont rocephin. ngtd on cx's fever down - left shoulder pain - pt received IV solumedrol with clinical improvement - Pt seen by Ortho, NO surgical intervention - INR improving - continue to hold coumadin - repeat INR in AM - PT - DVT prophylaxis - (2) Abnormal PSA Status: Acute Plan: - mild elevation - refer to Urology, outpt (3) General weakness Status: Acute Plan: see above (4) Febrile illness Status: Acute Plan: - see above (5) ESRD (end stage renal disease) on dialysis Status: Chronic Plan: - Appreciate nephrology consult. - HD , , (6) Acute hyperkalemia Status: Acute Plan: see above (7) Atrial fibrillation Status: Chronic Plan: hold coumadin (8) HTN (hypertension) Status: Chronic Plan: Somewhat difficult to control in the past. continue meds - now hydralazine 75mg TID - observe clinical response - procardia xl 60mg BID (9) Shoulder pain, acute Status: Acute Plan: see above Vasile Bobby DO August 30, 2016 15:51
[2016-08-30] MEDS: cefTRIAXone INJ 1,000 MG in SODIUM CHLORIDE 0.9% INJ 100 ML IV SCH (17:07)
[2016-08-30] MEDS: ATORVASTATIN 10 MG TAB PO SCH (21:17)
[2016-08-31] VITALS: BP 140/67; PULSE 58; RESP 20; TEMP 98.1; O2SAT 94
[2016-08-31 04:00] VITALS: BP 156/77; PULSE 59; RESP 20; TEMP 98.4; O2SAT 94
[2016-08-31 05:20] LABS: AUTOMATED NEUTROPHIL # 8.5 TH/MM3 (1.8-7.7); BASOPHIL # 0.1 TH/MM3 (0-0.2); BASOPHIL % 0.8 % (0.0-2.0); EOSINOPHIL # 0.4 TH/MM3 (0-0.4); HEMATOCRIT 31.8 % (39.0-51.0); HEMO FLAGS DIFF FINAL; LYMPH % 10.5 % (9.0-44.0); LYMPHOCYTE # 1.2 TH/MM3 (1.0-4.8); MEAN CELL VOLUME 97.4 FL (80.0-100.0); MEAN CORPUSCULAR HGB CONC 32.9 % (32.0-36.0); MONO % 9.1 % (0.0-8.0); NEUT % 75.6 % (16.0-70.0); PLATELET COUNT 463 TH/MM3 (150-450); RED BLOOD COUNT 3.27 MIL/MM3 (4.50-5.90); RED CELL DISTRIBUTION WIDTH 14.7 % (11.6-17.2); WHITE BLOOD COUNT 11.3 TH/MM3 (4.0-11.0)
[2016-08-31 05:29] LABS: PROTHROMBIN TIME - PATIENT 22.7 SEC (9.8-11.6)
[2016-08-31 05:41] LABS: BICARBONATE 28.9 MEQ/L (21.0-32.0); MAGNESIUM 2.5 MG/DL (1.5-2.5); POTASSIUM 4.3 MEQ/L (3.5-5.1)
[2016-08-31] MEDS: LOW DOSE INSULIN NOVOLOG SUPPLEMENTAL SCALE SQ SCH ×2 (05:48→11:00)
[2016-08-31] MEDS: LANTHANUM CARBONATE 500 MG CHEWABLE TABLET CHEW SCH ×2 (07:22→12:14)
[2016-08-31] MEDS: hydrALAZINE HCL 25 MG TAB PO SCH ×2 (07:23→12:14)
[2016-08-31] MEDS: FLUTICASONE PROPIONATE 50 MCG/ACT 16 GM NASAL SPRAY EACH NARE SCH (09:00)
[2016-08-31] MEDS: GENTAMICIN SULFATE (DIALYSIS USE ONLY) 20 MG/2 ML VIAL IV PRN (10:05)
[2016-08-31] MEDS: HEPARIN SODIUM - IV 10,000 UNITS/10 ML VIAL PRN (10:05)
[2016-08-31] MEDS: SODIUM CHLOR 0.9% 1000 ML INJ 1,000 ML IV PRN (10:05)
--- NOTE | 2016-08-31 10:13 | HHI.NPPN ---
Subjective History of Present Illness The patient is a 75 yo [place] male who is known to our outpatient services for ESRD on dialysis. Was brought to the ED yesterday evening by his who noted that he has had tremors, fatigue, and low grade fever. The patient himself is obtunded at the present as he has just received pain medications, so history is obtained via other records and outpatient dialysis facility. According to charts, his Gabapentin was recently increased from once daily to TID and seems to coincide with symptoms. He dialyzes TTS as outpatient and has not missed any sessions. According to outpatient nurse, he has had no events during recent dialysis sessions including no rigors or fever. He does have RIJ PermCath and was scheduled for outpatient consultation for AVF placement tomorrow. Interval History Pt seen during HD today. Tolerating well Feeling much better. (Isis Herman) Review of Systems General Constitutional: Fatigue (Isis Herman) Objective Data Data 08/30/16 08/31/16 18:59 06:59 Intake Total 237 ml 145 ml Output Total 100 ml 200 ml Balance 137 ml -55 ml Intake Oral 237 ml 145 ml Output Urine Total 100 ml 200 ml # Bowel Movements 0 0 Vital Signs Date Time Temp Pulse Resp B/P Pulse Ox O2 Delivery O2 Flow Rate FiO2 08/31/16 04:00 98.4 59 20 156/77 94 08/31/16 00:00 98.1 58 20 140/67 94 08/30/16 20:45 21 08/30/16 20:00 55 08/30/16 20:00 97.8 69 22 158/77 95 08/30/16 16:00 96.5 65 16 161/78 96 08/30/16 12:00 95.9 67 16 172/81 93 (Isis Herman) -: 08/31/16 0443 08/31/16 0443 Tubes & Lines: Perma-Cath Medication Review Current Medications Medications (Trade) Dose Ordered Sig/Terra Route Start Time Stop Time Status Last Admin (NS Flush) 2 ml UNSCH PRN IVF 08/23/16 18:45 (Tylenol) 500 mg Q6H PRN PO 08/23/16 21:45 (Lipitor) 10 mg HS PO 08/24/16 21:00 5/22/17 21:17 (Proscar) 5 mg DAILY PO 08/24/16 09:00 08/30/16 07:26 (Flonase Mario Spr) 1 spray DAILY EACH NARE 08/24/16 09:00 08/30/16 07:29 (Neurontin) 100 mg BID PO 08/24/16 09:00 08/30/16 21:17 (Fosrenol Chew) 1,000 mg TID CHEW 08/24/16 09:00 08/30/16 17:15 (Procardia Xl) 60 mg BID PO 08/24/16 09:00 08/30/16 21:17 (SEROquel) 25 mg BID PO 08/24/16 09:00 08/30/16 21:17 (Flomax) 0.4 mg DAILY PO 08/24/16 09:00 08/30/16 07:27 (Nephrocaps) 1 cap DAILY PO 08/24/16 09:00 08/30/16 07:27 Clonidine 0.1 mg 0.1 mg Q6H PRN PO 08/23/16 22:00 (NS 1000 ml Inj) 1,000 ml @ 0 mls/hr Q0M PRN IV 08/24/16 09:15 08/26/16 12:46 Heparin Sodium (Porcine) 8000 units 8,000 units UNSCH PRN IVF 08/24/16 09:15 Sodium Chloride 1,000 ml @ 200 mls/hr Q5H PRN IV 08/24/16 09:15 08/31/16 10:05 (NS 1000 ml Inj) 1,000 ml @ 0 mls/hr Q0M PRN IV 08/24/16 09:15 (Mannitol Inj) 12.5 gm UNSCH PRN IV 08/24/16 09:15 (Albumin 25% Inj) 25 gm UNSCH PRN IV 08/24/16 09:15 08/25/16 14:29 (NS Flush) 5 ml UNSCH PRN IV FLUSH 08/24/16 09:15 (Heparin Inj) UNSCH PRN .XX 08/24/16 09:15 08/31/16 10:05 (Gentamicin (Dialysis) Inj) 20 mg UNSCH PRN IV 08/24/16 09:15 08/31/16 10:05 (Zofran Inj) 4 mg UNSCH PRN IV 08/24/16 09:15 (Tylenol) 650 mg UNSCH PRN PO 08/24/16 09:15 08/26/16 01:20 (Benadryl) 25 mg UNSCH PRN PO 08/24/16 09:15 (Nitrostat Sl) 0.4 mg UNSCH PRN SL 08/24/16 09:15 (Catapres) 0.1 mg UNSCH PRN PO 08/24/16 09:15 Gelatin 1 foam 1 foam UNSCH PRN TOP 08/24/16 09:15 (Rocephin Inj/NS Inj) 100 ml @ 200 mls/hr Q24H IV 08/24/16 18:00 08/30/16 17:07 Miscellaneous Information Patient in critical care unit? Ass... Q361D .XX 08/24/16 20:00 08/24/16 20:00 (Percocet 5-325 Mg) 1 tab Q6H PRN PO 08/26/16 15:45 08/28/16 18:29 (Miralax) 17 gm DAILY PO 08/27/16 09:00 08/30/16 07:28 (D50w (Vial) Inj) 25 ml UNSCH PRN IV PUSH 08/26/16 20:15 (Glucagon Inj) 1 mg UNSCH PRN OTHER 08/26/16 20:15 (Apresoline) 75 mg TID PO 08/30/16 13:00 08/30/16 17:06 (Isis Herman) Physical Exam General Appearance: Comfortable, Malnourished (Isis Herman) Eyes Eye Exam: Pupils Equal (Isis Herman) Throat Throat Exam: Oral Mucosa [place] & Moist (Isis Herman) Neck Neck Exam: Neck Supple, Trachea Midline (Isis Herman) Pulmonary Resp Exam: Clear Bilaterally, Breath Sounds Equal (Isis Herman) Cardiology CV Exam: Regular, Normal Sinus Rhythm (Isis Herman) Integumentary Skin Exam: Clear, Warm, Dry (Isis Herman) Extremeties Extremities Exam: No Edema (Isis Herman) Neurologic Neuro Exam: Awake, Speech Clear, Moving All Extremities (Isis Herman) Psychiatric Psych Exam: Appropriate Responses (Isis Herman) Assessment/Plan Discussed Condition With: Patient, Spouse Problem List: (1) ESRD (end stage renal disease) on dialysis Plan: Seen during HD today. Medications should be adjusted for the patient's estimated end stage renal disease if clinically indicated. Avoid Gadolinium (2) HTN (hypertension) Plan: Improved with increase of Hydralazine (3) General weakness Plan: Blood cultures remaining negative. (4) Hypercalcemia Plan: Improved s/p Calcitonin Urology as outpatient for evaluation of elevated PSA (Isis Herman) Plan The patient was seen during dialysis today. Much improved clinically and calcium level has normalized. Discharge okay from renal point of view. We'll defer to primary in regard to whether or not the patient requires rehabilitation placement or outpatient physical therapy. Dialysis time will be increased post discharge as discussed with the patient. Patient was advised to avoid all calcium containing phosphate binders as well as calcium supplements. Was also advised to follow-up with urology. The exam, history, and the medical decision-making described in the above note were completed with the assistance of the LISA. I reviewed and agree with the findings presented. I attest that I had a [id number] encounter with the patient on the same day, and personally performed and documented my assessment and findings in the medical record. (Danita Maria MD) Isis Herman August 31, 2016 10:13 Danita Maria MD August 31, 2016 11:11
[2016-08-31 12:00] VITALS: BP 175/77; PULSE 73; RESP 18; TEMP 97.9; O2SAT 97
[2016-08-31] MEDS: VITAMIN B CMPLX/VITC/FOLIC AC CAP PO SCH (12:13)
[2016-08-31] MEDS: TAMSULOSIN HCL 0.4 MG CAP PO SCH (12:13)
[2016-08-31] MEDS: NIFEdipine 60 MG SUSTAINED RELEASE TAB PO SCH (12:13)
[2016-08-31] MEDS: QUEtiapine FUMARATE 25 MG TAB PO SCH (12:13)
[2016-08-31] MEDS: POLYETHYLENE GLYCOL 17 GM PKG PO SCH (12:13)
[2016-08-31] MEDS: GABAPENTIN 100 MG CAP PO SCH (12:13)
[2016-08-31] MEDS: FINASTERIDE 5 MG TAB PO SCH (12:13)
[2016-08-31 14:04] VITALS: O2SAT 96
[2016-08-31 16:00] VITALS: BP 179/83; PULSE 77; RESP 18; TEMP 98.3; O2SAT 96
--- NOTE | 2016-08-31 16:26 | HHI.FF ---
Face to Face Verification Diagnosis: (1) Shoulder pain, acute (2) Mental status change (3) ESRD (end stage renal disease) on dialysis (4) HTN (hypertension) Physical Therapy Order: Evaluate and Treat, Improve ambulation, Strength and gait training Home Health Nursing Order: Medical education Signs/symptoms of disease process Medication education-adverse effect Nursing assessment with vital signs I have seen patient Horacio Avila on 08/31/16. My clinical findings support the need for the requested home health care services because: Ltd mobility - disease progression Deconditioned w/ increased weakness Med compliance is questionable Limited ability to care for self Need for psychosocial assistance I certify that my clinical findings support that this patient is homebound because: Impaired cognitive ability/safety Unsafe to leave home unassisted Need for psychosocial assistance Unable to use public transportation Vasile Bobby DO August 31, 2016 16:26
[2016-08-31] MEDS ORDERED: PERC5TAB12 PO (16:30)
[2016-08-31] MEDS ORDERED: HYDR25TA35 PO (16:30)
--- NOTE | 2016-09-01 16:40 | HHI.DS ---
Discharge Summary Admission Date August 24, 2016 at 10:39 Discharge Date: August 31, 2016 Admitting Diagnosis Generalized weakness, hyperkalemia, hemodialysis patient (1) Mental status change Diagnosis: Principal (2) General weakness Diagnosis: Principal (3) Febrile illness Diagnosis: Principal (4) Acute hyperkalemia Diagnosis: Principal (5) Shoulder pain, acute Diagnosis: Principal (6) Abnormal PSA Diagnosis: Secondary (7) ESRD (end stage renal disease) on dialysis Diagnosis: Secondary (8) Atrial fibrillation Diagnosis: Secondary (9) HTN (hypertension) Diagnosis: Secondary Consultants Dr. Marcos Maria, Nephrology Dr. Agustín Feliciano, Orthopedic Surgeon Brief History 75-year-old male with history of end-stage renal disease after nephritis as a child who had been on peritoneal dialysis until w/i last 6 weeks. He was admitted for peritonitis from peritoneal dialysis and sepsis, had the peritoneal dialysis catheter removed and is currently getting dialyzed through a temporary catheter each , , . He is here because he has had several days ' history of subjective fevers, chills, and shakiness, not able to stand up according to patient's . He denies any chest pains, coughing, fevers, abdominal pains, or other symptoms. It is noted that his gabapentin was recently increased to TID and that he had tremors that last time his dose was increased to TID as well. The LE weakness is new for him and has been more notable today. He was able to transfer this AM, but was unable to stand as the day progressed. No recent trauma, but has chronic pain in left shoulder from rotator cuff injury. Reportedly was doing some outside work on a trailer this past w/e and may have reinjured his left shoulder by pulling on some drawers underneath the trailer. Labs noted for mild hyperkalemia, chronically elevated BUN/Cr and mild elevation of Mg, alk phos. CBC/BMP: 08/31/16 0443 08/31/16 0443 Significant Findings Laboratory Tests Test 08/30/16 08/31/16 08:59 04:43 Prothrombin Time 37.5 SEC 22.7 SEC (9.8-11.6) (9.8-11.6) Chloride Level 94 MEQ/L 95 MEQ/L (98-107) (98-107) Blood Urea Nitrogen 79 MG/DL (7-18) 92 MG/DL (7-18) Creatinine 5.87 MG/DL 6.66 MG/DL (0.60-1.30) (0.60-1.30) Estimat Glomerular Filtration 9 ML/MIN (>89) 8 ML/MIN (>89) Rate Random Glucose 154 MG/DL 150 MG/DL (74-106) (74-106) Calcium Level 10.3 MG/DL (8.5-10.1) White Blood Count 11.3 TH/MM3 (4.0-11.0) Red Blood Count 3.27 MIL/MM3 (4.50-5.90) Hemoglobin 10.5 GM/DL (13.0-17.0) Hematocrit 31.8 % (39.0-51.0) Platelet Count 463 TH/MM3 (150-450) Neutrophils (%) (Auto) 75.6 % (16.0-70.0) Monocytes (%) (Auto) 9.1 % (0.0-8.0) Neutrophils # (Auto) 8.5 TH/MM3 (1.8-7.7) Monocytes # (Auto) 1.0 TH/MM3 (0-0.9) Albumin 2.9 GM/DL (3.4-5.0) Imaging Last Impressions SPECT Scan-Bone Nuclear Medicine 08/28/16 0000 Signed Impressions: Service Date/Time: Sunday, August 28, 2016 16:22 - CONCLUSION: Scattered areas of increased uptake seen all of which appear to be related to either degenerative spurring or posttraumatic change. A pattern suspicious of metastatic disease is not seen. Willy Cevallos MD Upper Extremity CT 08/24/16 0000 Signed Impressions: Service Date/Time: Wednesday, August 24, 2016 19:46 - CONCLUSION: 1. Positive shoulder joint effusion also with fluid in the subacromial/subdeltoid bursa. Mild subluxation of the humeral head anteriorly. Chronic arthropathy of the a.c. joint. 2. Cannot adequately evaluate rotator cuff pathology but suspicious given narrowing of acromiohumeral distance. Shoulder would be better evaluated with MRI. Etiology of effusion unclear. 3. No acute fracture identified. Quang Watts MD Chest X-Ray 08/23/16 [id number] Signed Impressions: Service Date/Time: Tuesday, August 23, 2016 18:58 - CONCLUSION: 1. Left basilar atelectasis. 2. Cardiomegaly. João Fernandez MD PE at Discharge GENERAL: This is a well-nourished, well-developed patient, in no apparent distress. CARDIOVASCULAR: Regular rate and rhythm without murmurs, gallops, or rubs. RESPIRATORY: Clear to auscultation. Breath sounds equal bilaterally. No wheezes , rales, or rhonchi. GASTROINTESTINAL: Abdomen soft, non-tender, nondistended. Normal active bowel sounds MUSCULOSKELETAL: Extremities without clubbing, cyanosis, or edema. NEURO: Alert & Oriented x4 to person, place, time, situation. Moves all ext x4 Hospital Course (1) Mental status change Status: Acute Plan: [place] 75 [place] [facility] [place] converted to [place] earlier this yr from [place] - Admitted in June for severe htn, encephalopathy, and concern for peritonitis - Presents again with low grade fever, general weakness, and now AMS/lethargy and tremors - [place] to have metabolic encephalopathy and azotemia. r/o sepsis. ? hypercalcemia related. ..source of hypercalcemia unclear. r/o bone mets and primary hyperthyroidism. bone scan not consistent with metastatic lesions - received Miacalcin 08/29 - Also c/o worsening pain in left shoulder. appears to have effusion in the left shoulder - Improving mental status after HD. renal adjusting his prescription and addressing hypercalcemia - cont rocephin. ngtd on cx's fever down - left shoulder pain - pt received IV solumedrol with clinical improvement - Pt seen by Ortho, NO surgical intervention - hypercalcemia possibly d/t renal disease - Pt discharge to home 08/31 - Pt refused SNF. I arranged C and home PT - Case d/w pt's Operative Supervisor, Dr. Maria, on the day of discharge. Dr. Maria will continue to monitor pt's blood pressure outpt & make adjustments as needed. (2) Abnormal PSA Status: Acute Plan: - mild elevation - refer to Urology, outpt (3) General weakness Status: Acute Plan: see above (4) Febrile illness Status: Acute Plan: - see above (5) ESRD (end stage renal disease) on dialysis Status: Chronic Plan: - Appreciate nephrology consult. - HD , , (6) Acute hyperkalemia Status: Acute Plan: see above (7) Atrial fibrillation Status: Chronic Plan: hold coumadin (8) HTN (hypertension) Status: Chronic Plan: Somewhat difficult to control in the past. continue meds - now hydralazine 75mg TID - observe clinical response - procardia xl 60mg BID - see above (9) Shoulder pain, acute Status: Acute Plan: see above Pt Condition on Discharge: Stable Discharge Disposition: Disch w/ Home Health Serv Discharge Instructions DIET: Follow Instructions for: Heart Healthy Diet Activities you can perform: Weight Bearing as Shawna Changed Medications: Hydralazine (Hydralazine) 25 Mg Tab 75 MG PO TID Take with a meal Blood Pressure Management #120 Ref 0 TAB (Changed from: BID) Continued Medications: Atorvastatin (Lipitor) 10 Mg Tab 10 MG PO HS Cholesterol Management #30 Ref 0 TAB Calcium Acetate (Phosphate Binder) (Calcium Acetate (Phosphate Binder)) 667 Mg Cap 1334 MG PO TID Hyperphosphatemia #180 Ref 0 CAP Diphenhydramine (Diphenhydramine) 25 Mg Tab 25 MG PO Q6H PRN ALLERGIES Ref 0 TAB Finasteride (Proscar) 5 Mg Tab 5 MG PO DAILY Do not crush. Manage Prostate Problems #30 Ref 0 TAB Fluticasone Nasal [place] (Fluticasone Nasal [place]) 50 Mcg/Act Naspr 50 MCG EACH NARE DAILY 50 mcg/spray Allergy Management #1 Ref 0 BOTTLE Gabapentin (Gabapentin) 100 Mg Cap 100 MG PO BID diabetic neuropathy Days 60 Ref 0 CAP Lanthanum (Fosrenol) 500 Mg Tab 1000 MG CHEW TID dialysis Days 30 Ref 0 EA Nifedipine ER 24 HR (Nifedipine ER 24 HR) 60 Mg Tab 60 MG PO BID htn Days 60 Ref 0 TAB Oxycodone-Acetaminophen (Percocet) 5-325 mg Tab 1 TAB PO Q6H PRN PAIN #15 Ref 0 TAB (This prescription has been renewed) Quetiapine (Quetiapine) 25 Mg Tab 25 MG PO BID agitation Days 30 Ref 0 TAB Tamsulosin (Flomax) 0.4 Mg Cap 0.4 MG PO DAILY Manage Prostate Problems #30 Ref 0 CAP Vitamin B Cmplx/Vit C/Folic AC (Nephro-Estephanie Rx) 1 Tab 1 CAP PO DAILY dialysis Days 30 TAB Warfarin (Warfarin) 5 Mg Tab 5 MG PO SUMOWEFR TAKE 1 TAB (5MG) TUE, TUE, TUESDAY, TUESDAY Blood Clot Prevention #30 Ref 0 TAB Warfarin (Warfarin) 7.5 Mg Tab 7.5 MG PO TUTHSA TAKE ONE TAB (7.5 MG) PUJA CHERY SAT Blood Clot Prevention # 30 Ref 0 TAB Discontinued Medications: Benazepril (Benazepril) 40 Mg Tab 40 MG PO DAILY Blood Pressure Management #30 Ref 0 TAB Vasile Bobby DO September 01, 2016 16:40
[2016-10-04] MEDS ORDERED: MULT1TAB PO (15:40)
[2016-10-04] MEDS ORDERED: HYDR-3799 PO (15:40)
[2016-10-05] MEDS ORDERED: FURO1TAB61 PO (08:53)
== END 2016-08-31 17:20 | disposition home health service (06) | DRG 640 ==
LOC: NEPE 16:03 → INTOOBSV 20:55 → NEDA 20:55 → NEPHCDU 08-24 00:14 → OBSVTOIN 08-24 10:39 → HIME 08-24 19:05 → N07A 08-27 18:50
PROVIDERS: ADMIT Hospitalist; ATTEND Hospitalist
PROC: 5A1D60Z (ICD-10-PCS; principal; 2016-08-24)
DX: E83.52 Hypercalcemia (principal); G93.41 Metabolic encephalopathy; A41.9 Sepsis, unspecified organism; N18.6 End stage renal disease; I12.0 Hypertensive chronic kidney disease with stage 5 chronic kidney disease or end stage renal disease; E11.22 Type 2 diabetes mellitus with diabetic chronic kidney disease; I48.2 Chronic atrial fibrillation; G25.1 Drug-induced tremor; E87.5 Hyperkalemia; I48.91 Unspecified atrial fibrillation; I25.10 Atherosclerotic heart disease of native coronary artery without angina pectoris; R53.1 Weakness; M25.412 Effusion, left shoulder; R50.9 Fever, unspecified; Z99.2 Dependence on renal dialysis; N40.0 Benign prostatic hyperplasia without lower urinary tract symptoms; T42.6X5A Adverse effect of other antiepileptic and sedative-hypnotic drugs, initial encounter; D63.1 Anemia in chronic kidney disease; E78.5 Hyperlipidemia, unspecified; R97.20 Elevated prostate specific antigen [PSA]; M25.512 Pain in left shoulder; M12.9 Arthropathy, unspecified; Z79.01 Long term (current) use of anticoagulants; Z85.528 Personal history of other malignant neoplasm of kidney
CPT/HCPCS: 71010; 73200; 78306; 78320; 78399; 80048; 80053; 80069; 81001; 82306; 82550; 82552; 82948; 83605; 83735; 83970; 84153; 84155; 84484; 85025; 85610; 86140; 87040; 87641; 90935; 93005; 96365; 96367; 96374; 96375; A9503; J0630; J0696; J1580; J1644; J1815; J2543; J2930; J3370; J7030; J7050; P9047

== ENCOUNTER → 2016-10-05 | Day surgery (SDC) | payer MEDICARE ==
[~2016-10-05] VITALS: Ht 177.8 cm; Wt 61.9 kg
[~2016-10-05] MED LIST changes: +ACETAMINOPHEN/HYDROcodone 325 MG/5 MG TAB PO PRN; -BENA40TA PO; +BUPIVACAINE/EPINEPHRINE 0.5% PF 30 ML VIAL INFIL ONE; -CALC1CAP PO; +CHLORHEXIDINE GLUCONATE 2 % 1 PACK (2 CLOTHS) TOPICAL PRN; +FURO1TAB61 PO; +HEPARIN SODIUM - IV 10,000 UNITS/10 ML VIAL ONE; +HEPARIN SODIUM - IV 2,000 UNITS/2 ML VIAL ONE; +HEPARIN SODIUM - SQ 10,000 UNITS/ML VIAL ONE; +HYDR-3799 PO; -HYDR25TA35 PO; +INSULIN HUMAN REGULAR 1,000 UNITS/10 ML VIAL SQ PRN; +LACTATED RINGER'S 1000 ML IV PRN; -LANT500 CHEW; -LORA-361 PO; +METOPROLOL TARTRATE 25 MG TAB PO PRN; +MULT1TAB PO; -NEPHRO PO; -NIFE60TA8 PO; +PHENYLEPH/NS 1000 MCG/10 ML SYR IV ONE; +POVIDONE IODINE 5% (ANTISEPSIS KIT) 4 APPLICATIONS EACH NARE PRN; +PROPOFOL 200 MG/20 ML AMP IV ONE; -QUET1TAB7 PO; +SODIUM CHLORID 0.9% 500 ML INJ 500 ML IV ONE; +SODIUM CHLORID 0.9% 500 ML IV PRN; +ceFAZolin 1,000 MG/NS 100 ML IV SCH; +ceFAZolin INJ 1,000 MG VIAL IV ONE
[2016-10-05 08:55] VITALS: BP 191/84; PULSE 63; RESP 18; TEMP 97.3; O2SAT 98
[2016-10-05 09:34] LABS: AUTOMATED NEUTROPHIL # 5.9 TH/MM3 (1.8-7.7); BASOPHIL # 0.1 TH/MM3 (0-0.2); BASOPHIL % 1.2 % (0.0-2.0); EOSINOPHIL # 0.4 TH/MM3 (0-0.4); EOSINOPHIL % 4.4 % (0.0-4.0); HEMATOCRIT 30.8 % (39.0-51.0); HEMO FLAGS DIFF FINAL; LYMPH % 13.6 % (9.0-44.0); LYMPHOCYTE # 1.2 TH/MM3 (1.0-4.8); MEAN CELL VOLUME 97.6 FL (80.0-100.0); MEAN CORPUSCULAR HGB CONC 33.8 % (32.0-36.0); MONO % 12.3 % (0.0-8.0); NEUT % 68.5 % (16.0-70.0); PLATELET COUNT 321 TH/MM3 (150-450); RED BLOOD COUNT 3.15 MIL/MM3 (4.50-5.90); WHITE BLOOD COUNT 8.6 TH/MM3 (4.0-11.0)
[2016-10-05 09:40] LABS: PROTHROMBIN TIME - PATIENT 11.5 SEC (9.8-11.6)
[2016-10-05 09:59] LABS: BICARBONATE 24.8 MEQ/L (21.0-32.0); POTASSIUM 4.4 MEQ/L (3.5-5.1)
[2016-10-05 17:41] VITALS: BP 186/69; PULSE 67; RESP 18; TEMP 97; O2SAT 97
--- NOTE | 2016-10-07 09:32 | MP ---
cc: MANJU BARNES M.D. DATE OF SURGERY 10/05/2016 PREOPERATIVE DIAGNOSIS Chronic kidney disease - needs permanent hemodialysis access. POSTOPERATIVE DIAGNOSIS Chronic kidney disease - needs permanent hemodialysis access. OPERATIVE PROCEDURE Right brachiobasilic AV fistula creation. SURGEON Manju Barnes MD ANESTHESIA Local MAC DESCRIPTION With the patient in the supine position and under IV sedation, the right arm was prepped with Betadine and draped in a sterile fashion. One gram of Ancef was administered intravenously and following a protocol time-out, the skin and subcutaneous tissue along the medial antecubital region was infiltrated with 0.5% Marcaine with epinephrine. A curvilinear incision was performed along the medial antecubital region through which the basilic vein and brachial artery were circumferentially mobilized. The vein was ligated distally with 4-0 silk, transected proximal to the ligature, spatulated on end, flushed with heparinized saline and occluded with a Yasargil clip. The brachial artery was occluded proximally and distally with Yasargil clips and a vertical 4-mm arteriotomy performed along the inferomedial surface. The artery was regionally heparinized with heparinized saline. An end-to-side anastomosis was accomplished between the vein and arteriotomy with continuous 7-0 Prolene. The occluding Yasargil clips were removed reestablishing pulsatile flow within the brachial artery as well as into the basilic vein. Normal perfusion within the right hand was confirmed along with easily palpable right radial pulse exhibiting a robust biphasic Doppler flow. The incision was closed with continuous subcutaneous 4-0 Monocryl, continuous subcuticular 5-0 Monocryl. Reinforced with Steri-Strips and covered with sterile gauze. Instrument, needle, and sponge counts correct x2. No operative complications. The patient returned to the recovery room in stable condition having tolerated the procedure well. MD VANESA Lujan/BRIDGET /5:47 PM /9:32 AM
== END | disposition home or self-care (01) ==
LOC: HSDC 08:10
PROVIDERS: ATTEND Surgery Vascular Surgery
DX: I12.0 Hypertensive chronic kidney disease with stage 5 chronic kidney disease or end stage renal disease (principal); N18.6 End stage renal disease; E78.5 Hyperlipidemia, unspecified; I48.91 Unspecified atrial fibrillation; E11.9 Type 2 diabetes mellitus without complications; K21.9 Gastro-esophageal reflux disease without esophagitis; Z99.2 Dependence on renal dialysis
CPT/HCPCS: 01844; 36825; 80048; 85025; 85610; J0690; J1644; J2370; J7040; J1642

== ENCOUNTER → 2017-01-18 | Day surgery (SDC) | payer MEDICARE ==
[~2017-01-18] VITALS: Ht 177.8 cm; Wt 62.7 kg
[~2017-01-18] MED LIST changes: +BUPIVACAINE/EPINEPHRINE 0.5% 50 ML VIAL ONE; -BUPIVACAINE/EPINEPHRINE 0.5% PF 30 ML VIAL INFIL ONE; +DO NOT ADM ANY ANTICOAGULANT DRUGS PRN; +FAMOTIDINE 20 MG/2 ML VIAL ONE; -HEPARIN SODIUM - IV 10,000 UNITS/10 ML VIAL ONE; -HEPARIN SODIUM - IV 2,000 UNITS/2 ML VIAL ONE; +Hemodialysis Vas Acc Cath PRN Heparin 1000 unit/ml Flush IV FLUSH; +Hemodialysis Vas Access Cath PRN NS Lock Flush IV FLUSH; +KETAMINE HCL 500 MG/5 ML VIAL ONE; +LIDOCAINE HCL 1% PF 5 ML AMPULE OTHER ONE; +MIDAZOLAM HCL 2 MG/2 ML VIAL ONE; -PHENYLEPH/NS 1000 MCG/10 ML SYR IV ONE; -SODIUM CHLORID 0.9% 500 ML INJ 500 ML IV ONE; -ceFAZolin INJ 1,000 MG VIAL IV ONE
[2017-01-18 12:21] LABS: AUTOMATED NEUTROPHIL # 7.9 TH/MM3 (1.8-7.7); BASOPHIL # 0.1 TH/MM3 (0-0.2); BASOPHIL % 1.2 % (0.0-2.0); EOSINOPHIL # 0.3 TH/MM3 (0-0.4); EOSINOPHIL % 2.6 % (0.0-4.0); HEMATOCRIT 35.7 % (39.0-51.0); HEMO FLAGS DIFF FINAL; LYMPH % 10.4 % (9.0-44.0); LYMPHOCYTE # 1.1 TH/MM3 (1.0-4.8); MEAN CORPUSCULAR HEMOGLOBIN 34.1 PG (27.0-34.0); MEAN CORPUSCULAR HGB CONC 33.5 % (32.0-36.0); MONO % 10.4 % (0.0-8.0); NEUT % 75.4 % (16.0-70.0); PLATELET COUNT 244 TH/MM3 (150-450); RED CELL DISTRIBUTION WIDTH 13.9 % (11.6-17.2); WHITE BLOOD COUNT 10.4 TH/MM3 (4.0-11.0)
[2017-01-18 12:23] LABS: APTT (PATIENT) 33.4 SEC (24.3-30.1); PROTHROMBIN TIME - PATIENT 11.2 SEC (9.8-11.6)
[2017-01-18 12:35] LABS: BICARBONATE 26.2 MEQ/L (21.0-32.0); POTASSIUM 4.6 MEQ/L (3.5-5.1)
[2017-01-18 18:05] VITALS: BP 182/67; PULSE 52; RESP 18; TEMP 96.8; O2SAT 100
--- NOTE | 2017-01-18 23:01 | MP ---
cc: MANJU BARNES DATE OF SURGERY: 01/18/2017 PREOPERATIVE DIAGNOSIS: Matured, deep right brachial basilic AV fistula. POSTOPERATIVE DIAGNOSIS Matured, deep right brachial basilic AV fistula. OPERATIVE PROCEDURE Transposition right brachial basilic AV fistula. SURGEON: Danita Barnes MD. PLATE COLORER: LADAN Wiley. ANESTHESIA: Local MAC. DESCRIPTION OF OPERATIVE PROCEDURE: With the patient in the supine position and under IV sedation the right arm and axilla were prepped with Betadine and draped in a sterile fashion. One gram of Ancef was administered intravenously. Following a protocol time-out, the skin and subcutaneous tissue along the proposed incisional area was preemptively infiltrated with 1% Xylocaine with epinephrine. A vertical incision was performed from the axilla to the antecubital level along the course of the arterialized basilic vein. The vein was mobilized free of the deep adipose tissues, branches individually isolated and ligated in continuity prior to division. A superficial skin flap was dissected superolaterally. The adipose tissue was then reapproximated deep to the superficialized basilic vein with continuous 4-0 Monocryl. The skin incision was secured with interrupted subcutaneous 4-0 Monocryl, continuous subcuticular 5-0 Monocryl, reinforced with Steri-Strips and covered with sterile gauze. Instrument, needle and sponge count were correct x2. There were no operative complications. The patient returned to the recovery room in stable condition having tolerated the procedure well. Manju Barnes MD JTS/LORENZO /6:43 PM /10:51 PM
== END | disposition home or self-care (01) ==
LOC: HSDC 10:53
PROVIDERS: ATTEND Surgery Vascular Surgery
DX: I77.0 Arteriovenous fistula, acquired (principal); I10 Essential (primary) hypertension; E78.5 Hyperlipidemia, unspecified; K21.9 Gastro-esophageal reflux disease without esophagitis; Z01.818 Encounter for other preprocedural examination
CPT/HCPCS: 80048; 85025; 85610; 85730; J0690; J1644; J2250; J7040

== ENCOUNTER 2017-01-23 14:35 | Emergency (ER) | payer MEDICARE ==
[~2017-01-23] VITALS: Ht 172.7 cm; Wt 65.0 kg
[~2017-01-23 14:35] MED LIST changes: -ACETAMINOPHEN/HYDROcodone 325 MG/5 MG TAB PO PRN; -BUPIVACAINE/EPINEPHRINE 0.5% 50 ML VIAL ONE; -CHLORHEXIDINE GLUCONATE 2 % 1 PACK (2 CLOTHS) TOPICAL PRN; -DO NOT ADM ANY ANTICOAGULANT DRUGS PRN; -FAMOTIDINE 20 MG/2 ML VIAL ONE; -HEPARIN SODIUM - SQ 10,000 UNITS/ML VIAL ONE; -Hemodialysis Vas Acc Cath PRN Heparin 1000 unit/ml Flush IV FLUSH; -Hemodialysis Vas Access Cath PRN NS Lock Flush IV FLUSH; -INSULIN HUMAN REGULAR 1,000 UNITS/10 ML VIAL SQ PRN; -KETAMINE HCL 500 MG/5 ML VIAL ONE; -LACTATED RINGER'S 1000 ML IV PRN; -LIDOCAINE HCL 1% PF 5 ML AMPULE OTHER ONE; -METOPROLOL TARTRATE 25 MG TAB PO PRN; -MIDAZOLAM HCL 2 MG/2 ML VIAL ONE; -POVIDONE IODINE 5% (ANTISEPSIS KIT) 4 APPLICATIONS EACH NARE PRN; -PROPOFOL 200 MG/20 ML AMP IV ONE; -SODIUM CHLORID 0.9% 500 ML IV PRN; -ceFAZolin 1,000 MG/NS 100 ML IV SCH
[2017-01-23 14:45] VITALS: BP 191/77; PULSE 67; RESP 16; TEMP 97.9; O2SAT 96
[2017-01-23] MEDS ORDERED: GELATIN 25 MM X 50 MM FILM TOPICAL ONE (15:30)
[2017-01-23] MEDS ORDERED: DESMOPRESSIN ACETATE 4 MCG/ML VIAL IV PUSH ONE (15:30)
[2017-01-23] MEDS ORDERED: GELATIN 12 MM/7 MM FOAM TOPICAL ONE (15:45)
[2017-01-23 16:26] LABS: AUTOMATED NEUTROPHIL # 5.4 TH/MM3 (1.8-7.7); BASOPHIL # 0.1 TH/MM3 (0-0.2); BASOPHIL % 1.1 % (0.0-2.0); EOSINOPHIL # 0.4 TH/MM3 (0-0.4); EOSINOPHIL % 5.1 % (0.0-4.0); HEMATOCRIT 35.1 % (39.0-51.0); HEMO FLAGS DIFF FINAL; LYMPH % 14.5 % (9.0-44.0); LYMPHOCYTE # 1.2 TH/MM3 (1.0-4.8); MEAN CELL VOLUME 100.2 FL (80.0-100.0); MEAN CORPUSCULAR HEMOGLOBIN 33.6 PG (27.0-34.0); MEAN CORPUSCULAR HGB CONC 33.6 % (32.0-36.0); MONO % 11.9 % (0.0-8.0); NEUT % 67.4 % (16.0-70.0); PLATELET COUNT 274 TH/MM3 (150-450); RED BLOOD COUNT 3.51 MIL/MM3 (4.50-5.90); RED CELL DISTRIBUTION WIDTH 13.6 % (11.6-17.2); WHITE BLOOD COUNT 8.1 TH/MM3 (4.0-11.0)
[2017-01-23 16:39] LABS: APTT (PATIENT) 33.3 SEC (24.3-30.1); INTERNATIONAL NORMALIZED RATIO 1.1 RATIO; PROTHROMBIN TIME - PATIENT 12.7 SEC (9.8-11.6)
--- NOTE | 2017-01-23 17:05 | PD ---
HPI Chief Complaint: Bleeding Time Seen by Provider: 15:09 Travel History International Travel<30 days: No Contact w/Intl Traveler<30days: No Traveled to known affect area: No History of Present Illness HPI 76-year-old male presents emergent arm bleeding from his right arm. He had a recent AV fistula revision in which they juxtaposed the position of a to make it more superficial more accessible in his right upper arm. This was done by Dr. Barnes several days ago. When he took the bandage off the first time it was soaked in blood. He's had trickling bleeding ongoing since that time. No other complaints. He gets dialysis his right chest catheter. He is on warfarin for A. fib. He had stopped it prior to the procedure. History Past Medical History Narrative Medical ESRD, hCG Hypertension A. fib Anemia Diabetes CAD Dyslipidemia BPH Tetanus Vaccination: > 5 Years Influenza Vaccination: Yes Social History Alcohol Use: No Tobacco Use: No (quit in 1960 states smoked teen years) Allergies-Medications (Allergen,Severity, Reaction): Coded Allergies: No Known Allergies (Verified , 01/18/17) Reported Meds & Prescriptions Reported Meds & Active Scripts Active Gabapentin 100 Mg Cap 100 Mg PO BID 60 Days Warfarin 7.5 Mg Tab 7.5 Mg PO TUTHSA TAKE ONE TAB (7.5 MG) , , TUE Warfarin 5 Mg Tab 5 Mg PO SUMOWEFR TAKE 1 TAB (5MG) TUE, TUE, TUESDAY, TUESDAY Reported Lasix (Furosemide) 80 Mg Tab 40 Mg PO BID rx for 80 mg bid but pt is only taking 40mg bid Hydralazine HCl 25 Mg Tablet 75 Mg PO TID Centrum Silver Adult 50+ (Multiple Vitamins W/ Minerals) 1 Tab Tab 1 Tab PO DAILY Flomax (Tamsulosin HCl) 0.4 Mg Cap 0.4 Mg PO DAILY Fluticasone Nasal [place] 50 Mcg/Act Naspr 50 Mcg EACH NARE DAILY 50 mcg/spray Proscar (Finasteride) 5 Mg Tab 5 Mg PO DAILY Do not crush. Lipitor (Atorvastatin Calcium) 10 Mg Tab 10 Mg PO HS Review of Systems Except as stated in HPI: all other systems reviewed are Neg Physical Exam Narrative GENERAL: Well-appearing 76-year-old man, no acute distress. SKIN: Focused skin assessment warm/dry. NECK: Trachea midline. No JVD. CARDIOVASCULAR: Regular rate and rhythm. No murmur appreciated. RESPIRATORY: No accessory muscle use. Clear to auscultation. Breath sounds equal bilaterally. GASTROINTESTINAL: Abdomen soft, non-tender, nondistended. Hepatic and splenic margins not palpable. MUSCULOSKELETAL: No obvious deformities. No edema. NEUROLOGICAL: Awake and alert. No obvious cranial nerve deficits. Motor grossly within normal limits. Normal speech. PSYCHIATRIC: Appropriate mood and affect; insight and judgment normal. Data Data Last Documented VS Vital Signs Date Time Temp Pulse Resp B/P (MAP) Pulse Ox O2 Delivery O2 Flow Rate FiO2 01/23/17 15:00 16 97 Room Air 01/23/17 14:45 97.9 67 191/77 (115) Orders Orders Gelatin 25 Mm X 50 Mm Top (Gelfilm 25 Mm (01/23/17 15:30) Complete Blood Count With Diff (01/23/17 15:21) Prothrombin Time / Inr (Pt) (01/23/17 15:21) Act Partial Throm Time (Ptt) (01/23/17 15:21) Iv Access Insert/Monitor (01/23/17 15:21) Desmopressin Inj (Ddavp Inj) (01/23/17 15:30) Gelatin 12 Mm/7 Mm Top (Gelfoam 12 Mm/7 (01/23/17 15:45) Labs Laboratory Tests Test 01/23/17 15:55 White Blood Count 8.1 TH/MM3 Red Blood Count 3.51 MIL/MM3 Hemoglobin 11.8 GM/DL Hematocrit 35.1 % Mean Corpuscular Volume 100.2 FL Mean Corpuscular Hemoglobin 33.6 PG Mean Corpuscular Hemoglobin Concent 33.6 % Red Cell Distribution Width 13.6 % Platelet Count 274 TH/MM3 Mean Platelet Volume 8.2 FL Neutrophils (%) (Auto) 67.4 % Lymphocytes (%) (Auto) 14.5 % Monocytes (%) (Auto) 11.9 % Eosinophils (%) (Auto) 5.1 % Basophils (%) (Auto) 1.1 % Neutrophils # (Auto) 5.4 TH/MM3 Lymphocytes # (Auto) 1.2 TH/MM3 Monocytes # (Auto) 1.0 TH/MM3 Eosinophils # (Auto) 0.4 TH/MM3 Basophils # (Auto) 0.1 TH/MM3 CBC Comment DIFF FINAL Differential Comment Prothrombin Time 12.7 SEC Prothromb Time International Ratio 1.1 RATIO Activated Partial Thromboplast Time 33.3 SEC [facility] Medical Decision Making Medical Screen Exam Complete: Yes Emergency Medical Condition: Yes Differential Diagnosis Bleeding, A. fib, coagulopathy, other Narrative Course Medical decision-making new para 76-year-old male presents emergency department complaining of bleeding from recent surgical site. He looks well. I think down his dressing. A little bit trickling bleeding from one area. Pressure was held. His A good palpable thrill there. We cleansed the area, applied antibiotic ointment, applied Gelfoam dressing, put very gentle compression with gauze and an Kasi wrap. Palpable thrill still through the Kasi wrap. Gave him some DDAVP. INR is 1.1. Hemoglobin and platelet count looks okay. Diagnosis Primary Impression: Surgical arteriovenous fistula hemorrhage Additional Instructions: Remove Kasi wrap in 24 hours. After 48 hours, change dressing once daily. Call Dr. Barnes's office tomorrow morning to let him know you're seen in the emergency department. Follow-up with your primary doctor. Med/Other Pt SpecificInfo: No Change to Meds Disposition: 01 DISCHARGE HOME Condition: Stable Harry Meehan MD Jan 23, 2017 17:05
[2017-01-23 17:18] VITALS: BP 170/73
== END 2017-01-23 17:25 | disposition home or self-care (01) ==
LOC: PHED 14:35
DX: T82.837A Hemorrhage due to cardiac prosthetic devices, implants and grafts, initial encounter (principal); E11.22 Type 2 diabetes mellitus with diabetic chronic kidney disease; I12.0 Hypertensive chronic kidney disease with stage 5 chronic kidney disease or end stage renal disease; N18.6 End stage renal disease; Z99.2 Dependence on renal dialysis; I48.91 Unspecified atrial fibrillation; Z79.01 Long term (current) use of anticoagulants; I25.10 Atherosclerotic heart disease of native coronary artery without angina pectoris; E78.5 Hyperlipidemia, unspecified; N40.0 Benign prostatic hyperplasia without lower urinary tract symptoms; Z87.891 Personal history of nicotine dependence; Z79.899 Other long term (current) drug therapy; Y82.8 Other medical devices associated with adverse incidents
CPT/HCPCS: 12001; 85025; 85610; 85730; 96374; 99284; J2597

== ENCOUNTER 2017-03-08 09:14 | Emergency (ER) | payer MEDICARE ==
[~2017-03-08] VITALS: Ht 175.3 cm; Wt 65.0 kg
[~2017-03-08 09:14] MED LIST changes: -DIPH25TA2 PO; -PERC5TAB12 PO
[2017-03-08 09:16] VITALS: BP 185/79; PULSE 74; RESP 17; TEMP 99.1; O2SAT 95
[2017-03-08] MEDS ORDERED: WARF-23 PO (09:37)
[2017-03-08] MEDS ORDERED: GABA100C4 PO (09:37)
[2017-03-08] MEDS ORDERED: traMADol HCL 50 MG TAB PO ONE (10:45)
[2017-03-08] MEDS ORDERED: ACETAMINOPHEN 500 MG CPLT PO ONE (10:45)
--- NOTE | 2017-03-08 11:04 | RADRPT ---
EXAM DATE/TIME: 03/08/2017 10:08 [facility] COMPARISON: CHEST SINGLE AP, August 23, 2016, 18:58. INDICATIONS : Chest pain. MEDICAL HISTORY : Cardiovascular disease. Hypertension. Diabetes mellitus type 2.Renal failure, Dialysis. SURGICAL HISTORY : Appendectomy. ENCOUNTER: Initial ACUITY: 1 day PAIN SCORE: 0/10 LOCATION: Bilateral chest FINDINGS: A single view of the chest demonstrates the lungs to be symmetrically aerated without evidence of mas s, infiltrate or effusion. Previously noted atelectatic changes laterally in the left base have reso lved. Heart size is borderline prominent a well compensated. Old fracture deformity of a posterior le ft mid rib with a levoscoliosis of the dorsal spine and associated degenerative spurring. Dense calci fication of the records. Right IJ tunneled dialysis catheter with the tip projecting over the central venous system stable in position. CONCLUSION: 1. Heart size is borderline prominent but well compensated. 2. No confluent infiltrate. 3. Old fracture deformity of the posterolateral left eighth rib. Stable position of tunneled right IJ dialysis type catheter. Addy Almazan MD on March 08, 2017 at 10:58 Board Certified Radiologist. This report was verified electronically.
--- NOTE | 2017-03-08 11:09 | RADRPT ---
EXAM DATE/TIME: 03/08/2017 10:10 [facility] COMPARISON: No previous studies available for comparison. INDICATIONS : Neck pain. Patient states that he has neck pain that radiates from neck down, shoulders and arm, most ly right side. MEDICAL HISTORY : Dialysis.Cardiovascular disease. Hypertension. Diabetes mellitus type 2.Renal failure SURGICAL HISTORY : Appendectomy. ENCOUNTER: Initial ACUITY: 1 day PAIN SCORE: 10/10 LOCATION: Bilateral Neck. FINDINGS: Five view examination was performed. Lateral projection shows grade 1 anterolisthesis of C4 on 5 and a high grade one/grade 2 anterolisthesis of C5 on 6. This is probably due to facet degeneration is t he frontal projection demonstrates multilevel facet hypertrophy and sclerosis. Vertebral body heights are maintained without fracture. The dens is intact and the lateral masses are symmetric. Oblique im ages poorly profile the neural foramina but there does appear to be some encroachment on the right C3 -4 neural foramina due to uncovertebral ridging. There is some atherosclerotic calcification of the c arotid vessels, particularly on the right. CONCLUSION: 1. Multilevel facet hypertrophy with resulting grade 1 anterolisthesis of C4 on 5 and a high grade on e/grade 2 anterolisthesis of C5 on 6. 2. Definite foraminal narrowing rightward at C3-4 due to uncovertebral ridging. Neural foramina are o therwise poorly profiled. 3. No acute fracture. Atherosclerotic calcification of the regional vasculature, right greater than l eft Addy Almazan MD on March 08, 2017 at 11:02 Board Certified Radiologist. This report was verified electronically.
--- NOTE | 2017-03-08 12:09 | PD ---
HPI Chief Complaint: Back/ Neck Pain or Injury Time Seen by Provider: 09:36 Travel History International Travel<30 days: No Contact w/Intl Traveler<30days: No Traveled to known affect area: No History of Present Illness HPI Is a 76-year-old man who presents to the emergency department complaining of right arm pain and neck pain that started the past couple days. It started mostly in the right arm and the swelling affecting the neck more. He has a right AV fistula that was recently revised they just started using again. He's had some neck problems in the past but not usually this severe. He does take oxycodone for his back. He otherwise has been feeling generally well. History Past Medical History Narrative Medical ESRD, hCG Hypertension A. fib Anemia Diabetes CAD Dyslipidemia BPH Social History Alcohol Use: No Tobacco Use: No (quit in 1960 states smoked teen years) Allergies-Medications (Allergen,Severity, Reaction): Coded Allergies: No Known Allergies (Verified , 01/18/17) Reported Meds & Prescriptions Reported Meds & Active Scripts Active Warfarin 7.5 Mg Tab 7.5 Mg PO TUTHSA TAKE ONE TAB (7.5 MG) , , TUE Warfarin 5 Mg Tab 5 Mg PO SUMOWEFR TAKE 1 TAB (5MG) TUE, TUE, TUESDAY, TUESDAY Reported Gabapentin 100 Mg Cap 100 Mg PO TID Lasix (Furosemide) 80 Mg Tab 40 Mg PO BID rx for 80 mg bid but pt is only taking 40mg bid Hydralazine HCl 25 Mg Tablet 75 Mg PO TID Centrum Silver Adult 50+ (Multiple Vitamins W/ Minerals) 1 Tab Tab 1 Tab PO DAILY Flomax (Tamsulosin HCl) 0.4 Mg Cap 0.4 Mg PO DAILY Fluticasone Nasal [place] 50 Mcg/Act Naspr 50 Mcg EACH NARE DAILY 50 mcg/spray Proscar (Finasteride) 5 Mg Tab 5 Mg PO DAILY Do not crush. Lipitor (Atorvastatin Calcium) 10 Mg Tab 10 Mg PO HS Review of Systems Except as stated in HPI: all other systems reviewed are Neg Physical Exam Narrative GENERAL: Well-appearing 76-year-old man, no acute distress. SKIN: Warm and dry. CARDIOVASCULAR: Warm and well perfused. RESPIRATORY: Normal rate and effort. MUSCULOSKELETAL: Normal appearance of the right upper extremity. A little bit decreased muscle bulk throughout. Palpable femoral over the right AV fistula. Pain with range of motion of the shoulder. There is no obvious spasm or deformity in the neck. Patient able to range neck fully albeit slowly due to pain. Strength is diminished throughout but equal in the upper extremities. Sensation intact. No swelling in the right upper extremity to suggest blood clot or edema. NEUROLOGICAL: Awake and alert. No gross deficits. Data Data Last Documented VS Vital Signs Date Time Temp Pulse Resp B/P (MAP) Pulse Ox O2 Delivery O2 Flow Rate FiO2 03/08/17 09:16 99.1 74 17 185/79 (114) 95 Room Air Orders Orders Chest, Single Ap (03/08/17 ) Spine, Cervical Compl([id number]) (03/08/17 ) Acetaminophen (Tylenol) (03/08/17 10:45) Tramadol (Ultram) (03/08/17 10:45) MDM Medical Decision Making Medical Screen Exam Complete: Yes Emergency Medical Condition: Yes Interpretation(s) Last 24 hours Impressions Chest X-Ray 03/08/17 0000 Signed Impressions: Service Date/Time: Wednesday, March 08, 2017 10:08 - CONCLUSION: 1. Heart size is borderline prominent but well compensated. 2. No confluent infiltrate. 3. Old fracture deformity of the posterolateral left eighth rib. Stable position of tunneled right IJ dialysis type catheter. Addy Almazan MD Cervical Spine X-Ray 03/08/17 0000 Signed Impressions: Service Date/Time: Wednesday, March 08, 2017 10:10 - CONCLUSION: 1. Multilevel facet hypertrophy with resulting grade 1 anterolisthesis of C4 on 5 and a high grade one/grade 2 anterolisthesis of C5 on 6. 2. Definite foraminal narrowing rightward at C3-4 due to uncovertebral ridging. Neural foramina are otherwise poorly profiled. 3. No acute fracture. Atherosclerotic calcification of the regional vasculature, right greater than left Addy Almazan MD Differential Diagnosis Arthritis in the neck, strain or sprain, dissection, catheter malposition, other Narrative Course Medical decision-making new 76 room air presents emergency department with neck and right arm pain. His right chest catheter appears to be in good position. AV fistula appears to be functioning normally. They did just start using this in the past week and somehow given the temporal association I think this is probably related. Possibly due to positioning during dialysis. Nonetheless I don't see any evidence of blood clot, or malfunction of the AV fistula. Dissection seems unlikely. At this point we'll recommend supportive treatment. X-ray does show some foraminal narrowing on the right it could be related as well. Diagnosis Primary Impression: Neck and shoulder pain Patient Instructions: General Instructions Additional Instructions: Follow-up with your primary doctor symptoms persist. Use acetaminophen or oxycodone as needed for pain. Return to the emergency department for new or worsening symptoms. Med/Other Pt SpecificInfo: No Change to Meds Disposition: 01 DISCHARGE HOME Condition: Stable Harry Meehan MD Mar 08, 2017 12:09
== END 2017-03-08 13:26 | disposition home or self-care (01) ==
LOC: NEPD 09:14
DX: M25.511 Pain in right shoulder (principal); M54.2 Cervicalgia; I12.0 Hypertensive chronic kidney disease with stage 5 chronic kidney disease or end stage renal disease; N18.6 End stage renal disease; I25.10 Atherosclerotic heart disease of native coronary artery without angina pectoris; E78.5 Hyperlipidemia, unspecified; E11.22 Type 2 diabetes mellitus with diabetic chronic kidney disease; N40.0 Benign prostatic hyperplasia without lower urinary tract symptoms; I48.91 Unspecified atrial fibrillation; Z99.2 Dependence on renal dialysis; Z79.01 Long term (current) use of anticoagulants
CPT/HCPCS: 71010; 72050; 99284

== ENCOUNTER 2017-04-10 11:51 | Inpatient (IN) | payer MEDICARE ==
[2017-04-10] VITALS (18 sets, daily range): BP systolic 99–180; BP diastolic 43–90; PULSE 45–105; RESP 16–22; TEMP 97.4–98.6; O2SAT 96–100
[~2017-04-10] VITALS: Ht 177.8 cm; Wt 65.9 kg
[2017-04-10] MEDS ORDERED: ROCURONIUM INJ 50 MG/5 ML VIAL ONE (12:02)
[2017-04-10] MEDS ORDERED: PROPOFOL 1000 MG/100 ML INJ 100 ML ONE (12:04)
[2017-04-10] MEDS ORDERED: ETOMIDATE 20 MG/10 ML VIAL ONE (12:04)
[2017-04-10] MEDS ORDERED: PHENYLEPHRINE HCL 10 MG/ML VIAL ONE (12:09)
[2017-04-10] MEDS ORDERED: SODIUM CHLORIDE 0.9% FLUSH 10 ML FLUSH IVF PRN (12:30)
[2017-04-10 12:50] LABS: AUTOMATED NEUTROPHIL # 7.1 TH/MM3 (1.8-7.7); BASOPHIL % 0.5 % (0.0-2.0); EOSINOPHIL % 0.4 % (0.0-4.0); HEMATOCRIT 29.4 % (39.0-51.0); HEMOGLOBIN 9.4 GM/DL (13.0-17.0); LYMPH % 14.9 % (9.0-44.0); LYMPHOCYTE # 1.4 TH/MM3 (1.0-4.8); MEAN CELL VOLUME 99.6 FL (80.0-100.0); MEAN CORPUSCULAR HGB CONC 32.1 % (32.0-36.0); MEAN PLATELET VOLUME 7.9 FL (7.0-11.0); MONO % 7.6 % (0.0-8.0); MONOCYTE # 0.7 TH/MM3 (0-0.9); NEUT % 76.6 % (16.0-70.0); PLATELET COUNT 498 TH/MM3 (150-450); RED BLOOD COUNT 2.95 MIL/MM3 (4.50-5.90); RED CELL DISTRIBUTION WIDTH 13.6 % (11.6-17.2); WHITE BLOOD COUNT 9.2 TH/MM3 (4.0-11.0)
[2017-04-10 12:51] LABS: CHLORIDE 99 MEQ/L (98-107); SODIUM (NA) 136 MEQ/L (136-145)
[2017-04-10 12:54] LABS: CALCIUM 9.1 MG/DL (8.5-10.1)
[2017-04-10 12:55] LABS: ALBUMIN 2.4 GM/DL (3.4-5.0); BICARBONATE 23.6 MEQ/L (21.0-32.0); BLOOD UREA NITROGEN 28 MG/DL (7-18); GLUCOSE,RANDOM 170 MG/DL (74-106); MAGNESIUM 2.2 MG/DL (1.5-2.5)
[2017-04-10 12:58] LABS: ALT (GPT) 36 U/L (12-78); AST (GOT) 44 U/L (15-37); GLOMERULAR FILTRATION RATE 29 ML/MIN (>89)
[2017-04-10 13:00] LABS: TOTAL BILIRUBIN ADULT 0.9 MG/DL (0.2-1.0); TOTAL PROTEIN 7.3 GM/DL (6.4-8.2)
[2017-04-10 13:01] LABS: ALKALINE PHOSPHATASE 350 U/L (45-117)
[2017-04-10 13:03] LABS: TROPONIN I 0.07 NG/ML (0.02-0.05)
--- NOTE | 2017-04-10 13:03 | RADRPT ---
EXAM DATE/TIME: 04/10/2017 12:41 [facility] COMPARISON: CHEST SINGLE AP, March 08, 2017, 10:08. INDICATIONS : Chest pain, nose bleed, ET tube placement MEDICAL HISTORY : None. SURGICAL HISTORY : None. ENCOUNTER: Initial ACUITY: 1 day PAIN SCORE: Non-responsive. LOCATION: Bilateral chest FINDINGS: ET tube tip is 5 cm from the reilly. The heart size is mildly enlarged. Aortic calcifications are see n. There is mild patchy density seen at the left base. The right lung is grossly clear. There appeare d be old rib fractures. Spurs are seen in the thoracic spine. CONCLUSION: 1. ET tube in good position. 2. Mild cardiomegaly. 3. Mild patchy consolidation or atelectasis at the left lung base. Willy Cevallos MD on April 10, 2017 at 12:59 Board Certified Radiologist. This report was verified electronically.
[2017-04-10 13:04] LABS: PROTHROMBIN TIME - PATIENT 138.3 SEC (9.8-11.6)
[2017-04-10 13:05] LABS: INTERNATIONAL NORMALIZED RATIO 13.9 RATIO
--- NOTE | 2017-04-10 13:05 | PD ---
HPI Chief Complaint: nosebleed Time Seen by Provider: 11:55 Travel History International Travel<30 days: No Contact w/Intl Traveler<30days: No Traveled to known affect area: No History of Present Illness HPI The patient is a 76-year-old male who presents to the emergency department for nose bleed. The patient has a history of end-stage renal disease and is on hemodialysis. The patient had full hemodialysis this morning according to the . The patient's hide cleaner is Dr. Maria. The patient returned home and then developed a nosebleed out of the left naris, the states the bleeding was bright red, brisk, and covered several towels. Upon arrival the patient was awake, alert, and oriented, was able to speak. However , within several minutes he decompensated and was unable to answer questions or follow commands. Most of the information was obtained from the . The patient is on Coumadin, however, she states she has not had his INR checked recently secondary to osteoarthritis. He has been taking Tylenol for oestoarthritis, however, has not been taking ibuprofen. PFSH Past Medical History Hx Anticoagulant Therapy: Yes (WARFARIN) Atrial Fibrillation: Yes Blood Disorders: No Heart Rhythm Problems: Yes Cancer: No Cardiovascular Problems: Yes (HTN) High Cholesterol: Yes Chemotherapy: No Chest Pain: No Congestive Heart Failure: No Cerebrovascular Accident: No Diminished Hearing: No Endocrine: Yes Gastrointestinal Disorders: Yes (gastritis) GERD: Yes Genitourinary: No Hepatitis: No Hiatal Hernia: No Hypertension: Yes Immune Disorder: No Implanted Vascular Access Dvce: Yes Musculoskeletal: Yes (scoliosis on right side, TORN LEFT ROTATOR CUFF) Neurologic: No Psychiatric: No Reproductive: No Respiratory: No Radiation Therapy: No Renal Failure: Yes (renal failure on diaysis M,W,F) Thyroid Disease: No Past Surgical History Abdominal Surgery: Yes (SPLEENECTOMY, LEFT HERNIA '-, peritoneal dialysis and hemodialysis) AICD: No Appendectomy: Yes Body Medical Devices: right vascath, RIGHT AV FISTULA, PLATE IN R ARM Cardiac Surgery: No Ear Surgery: No Endocrine Surgery: No Eye Surgery: Yes (both eyes cataracts) Genitourinary Surgery: No Gynecologic Surgery: No Joint Replacement: No Neurologic Surgery: No Pacemaker: No Thoracic Surgery: No Other Surgery: Yes (av fistula revised) Social History Alcohol Use: No Tobacco Use: No (quit in 1960 states smoked teen years) Substance Use: No Allergies-Medications (Allergen,Severity, Reaction): Coded Allergies: No Known Allergies (Verified Allergy, Unknown, 04/10/17) Reported Meds & Prescriptions Reported Meds & Active Scripts Active Warfarin 7.5 Mg Tab 7.5 Mg PO TUTHSA TAKE ONE TAB (7.5 MG) TU, TH, TUE Warfarin 5 Mg Tab 5 Mg PO SUMOWEFR TAKE 1 TAB (5MG) TUE, TUE, TUESDAY, TUESDAY Reported Gabapentin 100 Mg Cap 100 Mg PO TID Lasix (Furosemide) 80 Mg Tab 40 Mg PO BID rx for 80 mg bid but pt is only taking 40mg bid Hydralazine HCl 25 Mg Tablet 75 Mg PO TID Centrum Silver Adult 50+ (Multiple Vitamins W/ Minerals) 1 Tab Tab 1 Tab PO DAILY Flomax (Tamsulosin HCl) 0.4 Mg Cap 0.4 Mg PO DAILY Fluticasone Nasal [place] 50 Mcg/Act Naspr 50 Mcg EACH NARE DAILY 50 mcg/spray Proscar (Finasteride) 5 Mg Tab 5 Mg PO DAILY Do not crush. Lipitor (Atorvastatin Calcium) 10 Mg Tab 10 Mg PO HS Review of Systems ROS Limitations: Altered Mental Status, Other: (most of the history is obtained from the ) HENT: Positive: Nosebleed Genitourinary: Positive: Other (history of ESRD on HD) Physical Exam Exam Limitations: Clinical Condition Narrative GENERAL: Lethargic 76-year-old male who is present on his own, however, does not follow commands and appears confused. SKIN: Focused skin assessment warm/dry. Mild pallor noted. HEAD: Atraumatic. Normocephalic. EYES: No scleral icterus. ENT: Dry blood in the left naris. Visible blood in the posterior oropharynx. NECK: Trachea midline. No JVD. CARDIOVASCULAR: Regular, bradycardic with a heart rate in the 50s. RESPIRATORY: Poor inspiratory effort. Diminished in the bases. GASTROINTESTINAL: Abdomen soft, multiple scars on the abdomen. MUSCULOSKELETAL: Right upper extremity AV fistula positive thrill. NEUROLOGICAL: Lethargic, not following commands. PSYCHIATRIC: Unable to obtain. Data Data Last Documented VS Vital Signs Date Time Temp Pulse Resp B/P (MAP) Pulse Ox O2 Delivery O2 Flow Rate FiO2 04/10/17 13:08 104 16 180/64 (102) 100 04/10/17 12:35 100 04/10/17 12:15 Ventilator 04/10/17 12:05 2.00 04/10/17 12:00 97.4 Orders Orders Rocuronium Inj (Zemuron Inj) (04/10/17 12:02) Etomidate Inj (Amidate Inj) (04/10/17 12:04) Propofol 1000 Mg/100 Ml Inj (Diprivan 10 (04/10/17 12:04) Phenylephrine Inj (Neosynephrine Inj) (04/10/17 12:09) Electrocardiogram (04/10/17 12:30) Ckmb (Isoenzyme) Profile (04/10/17 12:30) Complete Blood Count With Diff (04/10/17 12:30) Comprehensive Metabolic Panel (04/10/17 12:30) Magnesium (Mg) (04/10/17 12:30) Prothrombin Time / Inr (Pt) (04/10/17 12:30) Act Partial Throm Time (Ptt) (04/10/17 12:30) Troponin I (04/10/17 12:30) Chest, Single Ap (04/10/17 12:30) Ecg Monitoring (04/10/17 12:30) Bilateral Bp Monitoring (04/10/17 12:30) Iv Access Insert/Monitor (04/10/17 12:30) Oximetry (04/10/17 12:30) Oxygen Administration (04/10/17 12:30) Sodium Chloride 0.9% Flush (Ns Flush) (04/10/17 12:30) Sodium Chlor 0.9% 1000 Ml Inj (Ns 1000 M (04/10/17 12:30) Type And Screen (04/10/17 12:30) Arterial Blood Gas (Abg) (04/10/17 ) Desmopressin Inj (Ddavp Inj) (04/10/17 13:15) ^ Lab Follow Up (04/10/17 13:05) Prothrombin Complex Conc Inj (Kcentra In (04/10/17 13:45) Propofol 1000 Mg/100 Ml Inj (Diprivan 10 (04/10/17 13:15) ^ Infusion (04/10/17 13:09) RASS (04/10/17 13:09) Neurological Rass Scale MARIN.Q2H (04/10/17 13:09) Admit Order (Ed Use Only) (04/10/17 13:10) Urinary Catheter Insert/Apply (04/10/17 13:10) Labs Laboratory Tests Test 04/10/17 12:05 04/10/17 12:53 White Blood Count 9.2 TH/MM3 Red Blood Count 2.95 MIL/MM3 Hemoglobin 9.4 GM/DL Hematocrit 29.4 % Mean Corpuscular Volume 99.6 FL Mean Corpuscular Hemoglobin 32.0 PG Mean Corpuscular Hemoglobin Concent 32.1 % Red Cell Distribution Width 13.6 % Platelet Count 498 TH/MM3 Mean Platelet Volume 7.9 FL Neutrophils (%) (Auto) 76.6 % Lymphocytes (%) (Auto) 14.9 % Monocytes (%) (Auto) 7.6 % Eosinophils (%) (Auto) 0.4 % Basophils (%) (Auto) 0.5 % Neutrophils # (Auto) 7.1 TH/MM3 Lymphocytes # (Auto) 1.4 TH/MM3 Monocytes # (Auto) 0.7 TH/MM3 Eosinophils # (Auto) 0.0 TH/MM3 Basophils # (Auto) 0.0 TH/MM3 CBC Comment DIFF FINAL Differential Comment Prothrombin Time 138.3 SEC Prothromb Time International Ratio 13.9 RATIO Activated Partial Thromboplast Time 86.4 SEC Blood Urea Nitrogen 28 MG/DL Creatinine 2.20 MG/DL Random Glucose 170 MG/DL Total Protein 7.3 GM/DL Albumin 2.4 GM/DL Calcium Level 9.1 MG/DL Magnesium Level 2.2 MG/DL Alkaline Phosphatase 350 U/L Aspartate Amino Transf (AST/SGOT) 44 U/L Alanine Aminotransferase (ALT/SGPT) 36 U/L Total Bilirubin 0.9 MG/DL Sodium Level 136 MEQ/L Potassium Level 4.4 MEQ/L Chloride Level 99 MEQ/L Carbon Dioxide Level 23.6 MEQ/L Anion Gap 13 MEQ/L Estimat Glomerular Filtration Rate 29 ML/MIN Total Creatine Kinase 72 U/L Troponin I 0.07 NG/ML Blood Gas Puncture Site FEM LINE Blood Gas Patient Temperature 98.6 Blood Gas HCO3 22 mmol/L Blood Gas Base Excess -4.0 mmol/L Blood Gas Oxygen Saturation 97 % Arterial Blood pH 7.28 Arterial Blood Partial Pressure CO2 48 mmHG Arterial Blood Partial Pressure O2 297 mmHG Arterial Blood Oxygen Content 13.6 Vol % Arterial Blood Carboxyhemoglobin 1.5 % Arterial Blood Methemoglobin 1.4 % Blood Gas Hemoglobin 9.5 G/DL Oxygen Delivery Device VENTILATOR Blood Gas Ventilator Setting 500/12/PEEP 5 Blood Gas Inspired Oxygen 100 % [facility] Medical Decision Making Medical Screen Exam Complete: Yes Emergency Medical Condition: Yes Medical Record Reviewed: Yes Interpretation(s) EKG reveals sinus tachycardia with a heart rate of 105. Left bundle-branch block. Last Impressions Chest X-Ray 04/10/17 1230 Signed Impressions: Service Date/Time: Monday, April 10, 2017 12:41 - CONCLUSION: 1. ET tube in good position. 2. Mild cardiomegaly. 3. Mild patchy consolidation or atelectasis at the left lung base. Willy Cevallos MD Laboratory Tests Test 04/10/17 12:05 04/10/17 12:53 White Blood Count 9.2 TH/MM3 Red Blood Count 2.95 MIL/MM3 Hemoglobin 9.4 GM/DL Hematocrit 29.4 % Mean Corpuscular Volume 99.6 FL Mean Corpuscular Hemoglobin 32.0 PG Mean Corpuscular Hemoglobin Concent 32.1 % Red Cell Distribution Width 13.6 % Platelet Count 498 TH/MM3 Mean Platelet Volume 7.9 FL Neutrophils (%) (Auto) 76.6 % Lymphocytes (%) (Auto) 14.9 % Monocytes (%) (Auto) 7.6 % Eosinophils (%) (Auto) 0.4 % Basophils (%) (Auto) 0.5 % Neutrophils # (Auto) 7.1 TH/MM3 Lymphocytes # (Auto) 1.4 TH/MM3 Monocytes # (Auto) 0.7 TH/MM3 Eosinophils # (Auto) 0.0 TH/MM3 Basophils # (Auto) 0.0 TH/MM3 CBC Comment DIFF FINAL Differential Comment Prothrombin Time 138.3 SEC Prothromb Time International Ratio 13.9 RATIO Activated Partial Thromboplast Time 86.4 SEC Blood Urea Nitrogen 28 MG/DL Creatinine 2.20 MG/DL Random Glucose 170 MG/DL Total Protein 7.3 GM/DL Albumin 2.4 GM/DL Calcium Level 9.1 MG/DL Magnesium Level 2.2 MG/DL Alkaline Phosphatase 350 U/L Aspartate Amino Transf (AST/SGOT) 44 U/L Alanine Aminotransferase (ALT/SGPT) 36 U/L Total Bilirubin 0.9 MG/DL Sodium Level 136 MEQ/L Potassium Level 4.4 MEQ/L Chloride Level 99 MEQ/L Carbon Dioxide Level 23.6 MEQ/L Anion Gap 13 MEQ/L Estimat Glomerular Filtration Rate 29 ML/MIN Total Creatine Kinase 72 U/L Troponin I 0.07 NG/ML Blood Gas Puncture Site FEM LINE Blood Gas Patient Temperature 98.6 Blood Gas HCO3 22 mmol/L Blood Gas Base Excess -4.0 mmol/L Blood Gas Oxygen Saturation 97 % Arterial Blood pH 7.28 Arterial Blood Partial Pressure CO2 48 mmHG Arterial Blood Partial Pressure O2 297 mmHG Arterial Blood Oxygen Content 13.6 Vol % Arterial Blood Carboxyhemoglobin 1.5 % Arterial Blood Methemoglobin 1.4 % Blood Gas Hemoglobin 9.5 G/DL Oxygen Delivery Device VENTILATOR Blood Gas Ventilator Setting 500/12/PEEP 5 Blood Gas Inspired Oxygen 100 % Differential Diagnosis Differential diagnosis includes epistaxis, coagulopathy, Coumadin toxicity, platelet dysfunction secondary to end-stage renal disease, symptomatic anemia, thrombocytopenia. Narrative Course IV was established, labs are drawn and sent, the patient was placed on cardiac telemetry monitoring and continuous pulse oximetry monitoring. The nurse called immediately for my assistance at bedside once the patient stopped answering questions became lethargic. Upon entering the room the patient appeared lethargic, confused, was not answering questions. He did have spontaneous breathing. Hematocrit discussion with the regarding the need for intubation and further measures, she was then taken to the waiting room. The patient was intubated using rapid sequence intubation with etomidate and rocuronium. The patient's heart rate was down into the 50s, we lost pulses, CPR was started. The patient received epinephrine 1 mg intravenously. After 2 minutes the patient have return of spontaneous circulation. Bedside ultrasound revealed good cardiac activity with dilated ventricles. An arterial line was placed in the left femoral artery. The patient's systolic blood pressures in the 50s with a map in the 30s. The patient was administered phenylephrine 100 mics intravenously which improved his blood pressure. The patient's blood pressure was elevated 180s to 170s over 90s. The patient was placed on propofol drip. I placed a 7.5 cc Rhino Rocket in the left nares. Nursing staff was unable to pass an OG. I was unable to pack the right naris with a Rhino Rocket. I discussed the patient immediately with the on-call ENT physician, Dr. Stewart, who agrees with transfer to [facility] where he will evaluate the patient. I also discussed the patient with the on- call reception, Dr. Jarrett, who agrees with DDAVP and [facility] as indicated. The patient will be admitted to the intensive surgical care unit. I also brought the back to the patient relations room, I discussed the patient's current situation, intubation, need for transfer. Patient is agreeable. 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 The patient was administered DDAVP 0.3 makes for, total of 15 mg, to be administered over 15 -20 minutes. The patient's INR is 13.9, therefore, KCentra was ordered. Critical Care Narrative Aggregate critical care time was 45 minutes. Time to perform other separately billable procedures was not included in the critical care time. My time did not include minutes spent treating any other patients simultaneously or on activities that did not directly contribute to the patient's treatment. The services I provided to this patient were to treat and/or prevent clinically significant deterioration that could result in: Anoxia, hypoxia, aspiration, hemorrhagic shock, . I provided critical care services requiring my management, as noted below: Chart data review, documentation time, medication orders and management, vital sign assessments/reviewing monitor data, ordering and reviewing lab tests, ordering and interpreting/reviewing x-rays and diagnostic studies, care of the patient and discussion of the patient with the admitting physicians. Procedures Procedure Narrative INTUBATION: The patient was put in optimal position for the procedure. Rapid sequence intubation was initiated by me using 20 milligrams of etomidate IV and 50 milligrams of rocuronium IV. The patient was intubated with a 8-0 cuffed endotracheal tube. Tube placement was confirmed by visualization of the tube and balloon passing through the cords, capnometry and subsequent chest x-ray. Breath sounds were equal and well aerated bilaterally postintubation. No breath sounds over stomach. Patient tolerated procedure well. A 7.5 cm Rhino Rocket was placed in the left naris using sterile water and to 10 cc syringes. Patient tolerated the procedure without difficulty. Physician Communication Physician Communication I discussed the patient with the ENT physician, Dr. Stewart. I discussed the patient with the on-call reception, Dr. Jarrett. The patient will be admitted to the intensive care unit. Diagnosis Primary Impression: Epistaxis Additional Impressions: Coumadin toxicity Qualified Codes: T45.511A - Poisoning by anticoagulants, accidental ( unintentional), initial encounter Cardiopulmonary arrest Admitting Information Admitting Physician Requests: Admit Condition: Critical Logan Griffin MD Apr 10, 2017 13:05
[2017-04-10] MEDS ORDERED: SODIUM CHLORIDE 0.9% IV ONE (13:15)
[2017-04-10] MEDS ORDERED: DESMOPRESSIN IV ONE (13:15)
[2017-04-10] MEDS ORDERED: PROPOFOL 1000 MG/100 ML INJ 100 ML IV PRN ×2 (13:15→16:45)
[2017-04-10] MEDS: SODIUM CHLOR 0.9% 1000 ML INJ 1,000 ML IV SCH (13:33)
[2017-04-10] MEDS ORDERED: PROTHROMBIN COMPLEX CONC INJ 3,000 UNITS in SYRINGE/BAG 1 EA IV ONE (13:45)
[2017-04-10] MEDS ORDERED: fentaNYL CITRATE 250 MCG/5 ML AMP IV PUSH ONE (14:45)
[2017-04-10] MEDS ORDERED: NOREPINEPHRINE-DEXTROSE DRIP 250 ML IV ONE (15:38)
[2017-04-10 16:28] LABS: HEMATOCRIT 20.1 % (39.0-51.0); HEMOGLOBIN 6.7 GM/DL (13.0-17.0)
[2017-04-10 16:32] LABS: INTERNATIONAL NORMALIZED RATIO 1.7 RATIO; PROTHROMBIN TIME - PATIENT 16.7 SEC (9.8-11.6)
[2017-04-10] MEDS ORDERED: ACETAMINOPHEN 325 MG TAB PO PRN (16:45)
[2017-04-10] MEDS ORDERED: LACTULOSE SYRUP 20 GM/30 ML CUP PO PRN (16:45)
[2017-04-10] MEDS ORDERED: BISACODYL 10 MG SUPP RECTAL PRN (16:45)
[2017-04-10] MEDS ORDERED: CHLORHEXIDINE GLUCONATE 2 % 1 PACK (2 CLOTHS) TOP PRN (16:45)
[2017-04-10] MEDS ORDERED: SODIUM CHLORIDE 0.9% FLUSH 10 ML FLUSH IV FLUSH PRN (16:45)
[2017-04-10] MEDS ORDERED: MAGNESIUM HYDROXIDE SUSP 30 ML CUP PO PRN (16:45)
[2017-04-10] MEDS ORDERED: SENNOSIDES 8.6 MG TAB PO PRN (16:45)
[2017-04-10] MEDS ORDERED: ONDANSETRON HCL 4 MG/2 ML VIAL IV PUSH PRN (16:45)
[2017-04-10] MEDS ORDERED: MISCELLANEOUS NURSING INFORMATION XX SCH (16:45)
--- NOTE | 2017-04-10 17:04 | HHI.HP ---
[facility] Service Critical Care Medicine Primary Care Physician Nikolai Carrasquillo M.D. Admission Diagnosis epistaxis, coagulopathy, Coumadin toxicity, cardiopulmonary arrest Diagnosis: Chief Complaint: Nose bleed Travel History International Travel<30 Days: No Contact w/Intl Traveler <30 Da: No Traveled to Known Affected Are: No History of Present Illness 76 y/o man developed a persistent nose bleed this morning after dialysis. In ED his INR was > 13 and he received Kcentra for warfarin reversal (permanent a-fib) . Due to airway problems from blood and hypovolemia he sustained a brief cardiopulmonary arrest in the [place] ED requiring intubation and ventilation. He was aggressively resuscitated by the staff at [facility] and transferred to [facility] for ongoing resuscitation. He arrived to the [facility] with BP 52/25 and pulse rate 44. Two units of type specific blood were administered and levophed initiated at 20 mics/min. A central line was placed revealing CVP < 5 while on positive pressure ventilation. Resuscitation is continuing. Review of Systems ROS Unobtainable. Past Family Social History Allergies: Coded Allergies: No Known Allergies (Verified Allergy, Unknown, 04/10/17) Past Medical History Past Medical History Hx Anticoagulant Therapy: Yes (WARFARIN) Atrial Fibrillation: Yes Blood Disorders: No Heart Rhythm Problems: Yes Cancer: No Cardiovascular Problems: Yes (HTN) High Cholesterol: Yes Chemotherapy: No Chest Pain: No Congestive Heart Failure: No Cerebrovascular Accident: No Diminished Hearing: No Endocrine: Yes Gastrointestinal Disorders: Yes (gastritis) GERD: Yes Genitourinary: No Hepatitis: No Hiatal Hernia: No Hypertension: Yes Immune Disorder: No Implanted Vascular Access Dvce: Yes Musculoskeletal: Yes (scoliosis on right side, TORN LEFT ROTATOR CUFF) Neurologic: No Psychiatric: No Reproductive: No Respiratory: No Radiation Therapy: No Renal Failure: Yes (renal failure on diaysis M,W,F) Thyroid Disease: No Past Surgical History Abdominal Surgery: Yes (SPLEENECTOMY, LEFT HERNIA '79-80, peritoneal dialysis and hemodialysis) AICD: No Appendectomy: Yes Body Medical Devices: right vascath, RIGHT AV FISTULA, PLATE IN R ARM Cardiac Surgery: No Ear Surgery: No Endocrine Surgery: No Eye Surgery: Yes (both eyes cataracts) Genitourinary Surgery: No Gynecologic Surgery: No Joint Replacement: No Neurologic Surgery: No Pacemaker: No Thoracic Surgery: No Other Surgery: Yes (av fistula revised) Social History Alcohol Use: No Tobacco Use: No (quit in 1960 states smoked teen years) Substance Use: No Allergies-Medications Allergies-Medications (Allergen,Severity, Reaction): Coded Allergies: No Known Allergies (Verified Allergy, Unknown, 04/10/17) Reported Meds & Prescriptions Reported Meds & Active Scripts Active Warfarin 7.5 Mg Tab 7.5 Mg PO TUTHSA TAKE ONE TAB (7.5 MG) , , TUE Warfarin 5 Mg Tab 5 Mg PO SUMOWEFR TAKE 1 TAB (5MG) TUE, TUE, TUESDAY, TUESDAY Reported Gabapentin 100 Mg Cap 100 Mg PO TID Lasix (Furosemide) 80 Mg Tab 40 Mg PO BID rx for 80 mg bid but pt is only taking 40mg bid Hydralazine HCl 25 Mg Tablet 75 Mg PO TID Centrum Silver Adult 50+ (Multiple Vitamins W/ Minerals) 1 Tab Tab 1 Tab PO DAILY Flomax (Tamsulosin HCl) 0.4 Mg Cap 0.4 Mg PO DAILY Fluticasone Nasal [place] 50 Mcg/Act Naspr 50 Mcg EACH NARE DAILY 50 mcg/spray Proscar (Finasteride) 5 Mg Tab 5 Mg PO DAILY Do not crush. Lipitor (Atorvastatin Calcium) 10 Mg Tab 10 Mg PO HS Physical Exam Vital Signs Vital Signs Date Time Temp Pulse Resp B/P (MAP) Pulse Ox O2 Delivery O2 Flow Rate FiO2 04/10/17 16:31 98.6 78 16 147/45 96 04/10/17 16:06 98.6 76 16 127/48 100 04/10/17 15:35 100 100 04/10/17 15:30 80 16 99/55 (70) 99 Ventilator 04/10/17 14:08 80 16 127/45 (72) 98 Ventilator 04/10/17 13:26 103 16 154/50 (84) 100 Ventilator 04/10/17 13:15 99 16 133/47 (75) 99 Ventilator 04/10/17 13:08 104 16 180/64 (102) 100 04/10/17 12:35 100 100 04/10/17 12:15 105 16 100 Ventilator 04/10/17 12:08 100 170/81 04/10/17 12:05 78 Nasal Cannula 2.00 04/10/17 12:00 97.4 100 22 170/81 (110) 04/10/17 12:00 20 Physical Exam Gen: Ill-appearing, pale, elderly man Head: Atraumatic but blood in nares. Neck: Supple, orally intubated. Lungs: Few mobile secretions, good joselyn air movement. Heart: Irreg Irreg, 3/6 THIERRY, LSB. Neck veins not distended. Abdomen: Nondistended, quiet. No guarding. Extremities: Cold. Pale. Neuro: Unresponsive, withdraws 4 limbs to stimulation. JENNIFER. Laboratory Laboratory Tests Test 04/10/17 12:05 04/10/17 12:53 04/10/17 15:56 White Blood Count 9.2 Red Blood Count 2.95 Hemoglobin 9.4 6.7 Hematocrit 29.4 20.1 Mean Corpuscular Volume 99.6 Mean Corpuscular Hemoglobin 32.0 Mean Corpuscular Hemoglobin Concent 32.1 Red Cell Distribution Width 13.6 Platelet Count 498 Mean Platelet Volume 7.9 Neutrophils (%) (Auto) 76.6 Lymphocytes (%) (Auto) 14.9 Monocytes (%) (Auto) 7.6 Eosinophils (%) (Auto) 0.4 Basophils (%) (Auto) 0.5 Neutrophils # (Auto) 7.1 Lymphocytes # (Auto) 1.4 Monocytes # (Auto) 0.7 Eosinophils # (Auto) 0.0 Basophils # (Auto) 0.0 CBC Comment DIFF FINAL Differential Comment Prothrombin Time 138.3 16.7 Prothromb Time International Ratio 13.9 1.7 Activated Partial Thromboplast Time 86.4 32.7 Blood Urea Nitrogen 28 Creatinine 2.20 Random Glucose 170 Total Protein 7.3 Albumin 2.4 Calcium Level 9.1 Magnesium Level 2.2 Alkaline Phosphatase 350 Aspartate Amino Transf (AST/SGOT) 44 Alanine Aminotransferase (ALT/SGPT) 36 Total Bilirubin 0.9 Sodium Level 136 Potassium Level 4.4 Chloride Level 99 Carbon Dioxide Level 23.6 Anion Gap 13 Estimat Glomerular Filtration Rate 29 Total Creatine Kinase 72 Troponin I 0.07 Blood Gas Puncture Site FEM LINE Blood Gas Patient Temperature 98.6 Blood Gas HCO3 22 Blood Gas Base Excess -4.0 Blood Gas Oxygen Saturation 97 Arterial Blood pH 7.28 Arterial Blood Partial Pressure CO2 48 Arterial Blood Partial Pressure O2 297 Arterial Blood Oxygen Content 13.6 Arterial Blood Carboxyhemoglobin 1.5 Arterial Blood Methemoglobin 1.4 Blood Gas Hemoglobin 9.5 Oxygen Delivery Device VENTILATOR Blood Gas Ventilator Setting 500/12/PEEP 5 Blood Gas Inspired Oxygen 100 Result Diagram: 04/10/17 1556 04/10/17 1205 Caprini VTE Risk Assessment Caprini VTE Risk Assessment: No/Low Risk (score <= 1) VTE Pharm Contraindication: Hemorrhage Caprini Risk Assessment Model Point Value = 1 Point Value = 2 Point Value = 3 Point Value = 5 Age 41-60 Minor surgery BMI > 25 kg/m2 Swollen legs Varicose veins or History of unexplained or recurrent spontaneous Oral contraceptives or hormone replacement Sepsis (< 1 month) Serious lung disease, including pneumonia (< 1 month) Abnormal pulmonary function Acute myocardial infarction Congestive heart failure (< 1 month) History of inflammatory bowel disease Medical patient at bed rest Age 61-74 Arthroscopic surgery Major open surgery (> 45 min) Laparoscopic surgery (> 45 min) Malignancy Confined to bed (> 72 hours) Immobilizing plaster cast Central venous access Age >= 75 History of VTE Family history of VTE Factor V Leiden Prothrombin [id number] Lupus anticoagulant Anticardiolipin antibodies Elevated serum homocysteine Heparin-induced thrombocytopenia Other congenital or acquired thrombophilia Stroke (< 1 month) Elective arthroplasty Hip, pelvis, or leg fracture Acute spinal cord injury (< 1 month) Prophylaxis Regimen Total Risk Factor Score Risk Level Prophylaxis Regimen 0-1 Low Early ambulation 2 Moderate Order ONE of the following: *Sequential Compression Device (SCD) *Heparin 5000 units SQ BID 3-4 Higher Order ONE of the following medications: *Heparin 5000 units SQ TID *Enoxaparin/Lovenox 40 mg SQ daily (WT < 150 kg, CrCl > 30 mL/min) *Enoxaparin/Lovenox 30 mg SQ daily (WT < 150 kg, CrCl > 10-29 mL/min) *Enoxaparin/Lovenox 30 mg SQ BID (WT < 150 kg, CrCl > 30 mL/min) AND/OR *Sequential Compression Device (SCD) 5 or more Highest Order ONE of the following medications: *Heparin 5000 units SQ TID (Preferred with Epidurals) *Enoxaparin/Lovenox 40 mg SQ daily (WT < 150 kg, CrCl > 30 mL/min) *Enoxaparin/Lovenox 30 mg SQ daily (WT < 150 kg, CrCl > 10-29 mL/min) *Enoxaparin/Lovenox 30 mg SQ BID (WT < 150 kg, CrCl > 30 mL/min) AND *Sequential Compression Device (SCD) Assessment and Plan Assessment and Plan Assessment: 1. Hypovolemic shock. 2. Coagulopathy, coumadin. 3. Bradycardia. 4. Hypothermia. 5. Respiratory Failure 6. Acute blood loss anemia. 7. Epistaxis. 8. ESRD. Plan: Respiratory - PRVC vent mode - ABG CV - Transfuse to Hgb > 7.0 - Levophed to maintain MAP > 65, taper rapidly GI - NG to LIS to tarak active posterior naso[pharyngeal bleeding. - Protonix. - Monitor UO. - Renal consult - Dr. Maria - Follow lytes closely Heme - Check coags and fibrinogen - Received Kcentra and DDAVP Lines - Left SCV CVL 04/10 Overall impression: Patient is critically ill, undergoing resuscitation from hemorrhagic shock related to coagulopathy and epistaxis. Critical care 60 mins aside from procedures Marcos Gan MD Apr 10, 2017 17:04
--- NOTE | 2017-04-10 17:11 | RADRPT ---
EXAM DATE/TIME: 04/10/2017 16:40 [place] COMPARISON: CHEST SINGLE AP, April 10, 2017, 12:41. INDICATIONS : Central line placement MEDICAL HISTORY : Hypertension. Afib. Gastritis. Stage III renal failure. Scoliosis. Diabetes Anticoagulant therapy, Co umadin. SURGICAL HISTORY : Splenectomy. Appendectomy Left hernia repair Peitonela dialysis and hemodialysis. Right forearm plate . Right rotator cuff. Blood transfusions. ENCOUNTER: Subsequent ACUITY: 1 day PAIN SCORE: Non-responsive. LOCATION: Bilateral chest FINDINGS: NG tube is present with tip in the stomach. Left subclavian line is present with tip overlapping the expected region of the SVC. ET tube is present with tip overlapping approximately 3 cm above the treva na. Questionable left lung base consolidation is seen. CONCLUSION: Questionable left lung base consolidation. Scottie Donovan MD on April 10, 2017 at 17:08 Board Certified Radiologist. This report was verified electronically.
[2017-04-10] MEDS ORDERED: NOREPINEPHRINE INJ 4 MG in SODIUM CHLOR 0.9% 250 ML INJ 246 ML IV PRN (17:30)
[2017-04-10] MEDS ORDERED: TERBUTALINE INJ 1 MG/ML AMP SQ PRN (17:30)
--- NOTE | 2017-04-10 17:33 | PD.PROCEDR ---
Procedure Note Procedure DX: Hemorrhage, Hypovolemic shock OP: Insertion Left Subclavian Vein Central Line ([id number]) Procedure: Time out. Patient BP 52/25, Pulse 44, in extremis. Left chest prepped and draped. Left subclavian vein cannulated and wire advanced. Catheter passed over wire to 19 cm. Lumens aspirated and flushed. Foe expediency in emergency situation the flange was sutured to the skin and dressing applied. Nurse instructed to use line immediately before CXR taken. Subsequent CXR showed line in good position. Marcos Gan MD Apr 10, 2017 17:33
[2017-04-10] MEDS: hydrALAZINE HCL 25 MG TAB PO SCH (18:00)
[2017-04-10] MEDS: FUROSEMIDE 40 MG TAB PO SCH (18:00)
[2017-04-10] MEDS: GABAPENTIN 100 MG CAP PO SCH (18:00)
[2017-04-10] MEDS ORDERED: ACETAMINOPHEN 650 MG SUPP RECTAL PRN (18:45)
[2017-04-10] MEDS: fentaNYL DRIP 250 ML IV PRN (19:28)
[2017-04-10] MEDS: CHLORHEXIDINE 0.12% (ORAL KIT) 15 ML CUP MT SCH (19:41)
[2017-04-10] MEDS: SODIUM CHLORIDE 0.9% FLUSH 10 ML FLUSH IV FLUSH SCH (19:41)
[2017-04-10] MEDS: DESMOPRESSIN IV SCH (19:59)
[2017-04-10] MEDS: DOCUSATE SODIUM 50 MG/SENNA 8.6 MG TAB PO SCH (19:59)
[2017-04-10] MEDS: ATORVASTATIN 10 MG TAB PO SCH (19:59)
[2017-04-10] MEDS: SODIUM CHLORIDE 0.9% IV SCH (19:59)
[2017-04-10] MEDS ORDERED: DESMOPRESSIN ACETATE 4 MCG/ML VIAL IV PUSH SCH (21:00)
--- NOTE | 2017-04-10 22:14 | EKG ---
Date Performed: 04/10/2017 Time Performed: 12:47:46 PTAGE: 76 years EKG: Wide complex tachycardia Compared to prior electrocardiogram, Wide complex tachycardia is n ow present PREVIOUS TRACING : 08/23/2016 19.14 DOCTOR: Thanh Humphreys Interpretating Date/Time 04/10/2017 22:12:11
[2017-04-10] MEDS: CHLORHEXIDINE GLUCONATE 2 % 1 PACK (2 CLOTHS) TOP SCH (22:35)
[2017-04-10 22:46] LABS: HEMATOCRIT 24.8 % (39.0-51.0); HEMOGLOBIN 8.5 GM/DL (13.0-17.0); MEAN CELL VOLUME 95.5 FL (80.0-100.0); MEAN CORPUSCULAR HEMOGLOBIN 32.7 PG (27.0-34.0); MEAN CORPUSCULAR HGB CONC 34.2 % (32.0-36.0); MEAN PLATELET VOLUME 7.9 FL (7.0-11.0); PLATELET COUNT 378 TH/MM3 (150-450); RED BLOOD COUNT 2.59 MIL/MM3 (4.50-5.90); RED CELL DISTRIBUTION WIDTH 14.6 % (11.6-17.2); WHITE BLOOD COUNT 14.2 TH/MM3 (4.0-11.0)
[2017-04-10 23:06] LABS: INTERNATIONAL NORMALIZED RATIO 2.2 RATIO; PROTHROMBIN TIME - PATIENT 22.1 SEC (9.8-11.6)
[2017-04-11] VITALS (22 sets, daily range): BP systolic 140–188; BP diastolic 43–77; PULSE 44–83; RESP 15–18; TEMP 97.8–102.4; O2SAT 95–100
[2017-04-11] MEDS: SODIUM CHLOR 0.9% 1000 ML INJ 1,000 ML IV SCH ×2 (01:07→11:30)
[2017-04-11 05:14] LABS: AUTOMATED NEUTROPHIL # 9.9 TH/MM3 (1.8-7.7); BASOPHIL % 0.4 % (0.0-2.0); EOSINOPHIL % 0.2 % (0.0-4.0); HEMATOCRIT 23.4 % (39.0-51.0); LYMPH % 7.9 % (9.0-44.0); LYMPHOCYTE # 0.9 TH/MM3 (1.0-4.8); MEAN CELL VOLUME 95.5 FL (80.0-100.0); MEAN CORPUSCULAR HEMOGLOBIN 32.8 PG (27.0-34.0); MEAN CORPUSCULAR HGB CONC 34.4 % (32.0-36.0); MEAN PLATELET VOLUME 7.9 FL (7.0-11.0); MONO % 8.3 % (0.0-8.0); NEUT % 83.2 % (16.0-70.0); PLATELET COUNT 379 TH/MM3 (150-450); RED BLOOD COUNT 2.45 MIL/MM3 (4.50-5.90); RED CELL DISTRIBUTION WIDTH 14.5 % (11.6-17.2); WHITE BLOOD COUNT 11.9 TH/MM3 (4.0-11.0)
[2017-04-11 05:16] LABS: INTERNATIONAL NORMALIZED RATIO 2.8 RATIO; PROTHROMBIN TIME - PATIENT 27.9 SEC (9.8-11.6)
[2017-04-11 05:32] LABS: ALBUMIN 1.8 GM/DL (3.4-5.0); AST (GOT) 37 U/L (15-37); BICARBONATE 24.2 MEQ/L (21.0-32.0); BLOOD UREA NITROGEN 48 MG/DL (7-18); CALCIUM 8.7 MG/DL (8.5-10.1); CHLORIDE 102 MEQ/L (98-107); CREATININE 2.95 MG/DL (0.60-1.30); GLOMERULAR FILTRATION RATE 21 ML/MIN (>89); GLUCOSE,RANDOM 157 MG/DL (74-106); MAGNESIUM 1.8 MG/DL (1.5-2.5); SODIUM (NA) 139 MEQ/L (136-145)
[2017-04-11 05:33] LABS: ALT (GPT) 31 U/L (12-78)
[2017-04-11 05:35] LABS: ALKALINE PHOSPHATASE 253 U/L (45-117); TOTAL BILIRUBIN ADULT 0.6 MG/DL (0.2-1.0); TOTAL PROTEIN 5.3 GM/DL (6.4-8.2)
[2017-04-11] MEDS: CHLORHEXIDINE 0.12% (ORAL KIT) 15 ML CUP MT SCH ×2 (08:00→20:31)
[2017-04-11] MEDS: hydrALAZINE HCL 25 MG TAB PO SCH ×3 (08:34→17:30)
[2017-04-11] MEDS: TAMSULOSIN HCL 0.4 MG CAP PO SCH (08:35)
[2017-04-11] MEDS: FINASTERIDE 5 MG TAB PO SCH (08:35)
[2017-04-11] MEDS: FUROSEMIDE 40 MG TAB PO SCH ×2 (08:36→17:30)
[2017-04-11] MEDS: DOCUSATE SODIUM 50 MG/SENNA 8.6 MG TAB PO SCH ×2 (08:36→20:30)
[2017-04-11] MEDS: GABAPENTIN 100 MG CAP PO SCH ×3 (08:36→17:30)
[2017-04-11] MEDS: SODIUM CHLORIDE 0.9% FLUSH 10 ML FLUSH IV FLUSH SCH ×2 (08:37→20:30)
--- NOTE | 2017-04-11 08:39 | PD.CONS ---
History of Present Illness Service ENT Consult Requested By [facility] ED Reason for Consult Coumadin toxicity, epistaxis Primary Care Physician Nikolai Carrasquillo M.D. Diagnoses: History of Present Illness 76 year old male, sever Coumadin toxicity, afib. Present ed to ED with sever blood loss and epistaxis. Was in shock. Intubated, resuscitated, packed. Coagulation status normalized. Intubated with left nasal pack. Only minor ooze, no significant bleed. Review of Systems Ears, nose, mouth, throat: COMPLAINS OF: Epistaxis, DENIES: Nasal discharge, Oral lesions Past Family Social History Allergies: Coded Allergies: No Known Allergies (Verified Allergy, Unknown, 04/10/17) Physical Exam Vital Signs Vital Signs Date Time Temp Pulse Resp B/P (MAP) Pulse Ox O2 Delivery O2 Flow Rate FiO2 04/11/17 06:00 44 04/11/17 04:38 100 40 04/11/17 04:00 97.8 45 15 145/47 (79) 100 04/11/17 04:00 50 04/11/17 04:00 45 04/11/17 02:15 100 40 04/11/17 02:00 59 04/11/17 00:00 99.1 60 15 148/43 (78) 100 04/11/17 00:00 60 04/11/17 00:00 50 04/10/17 22:49 100 40 04/10/17 22:00 46 04/10/17 20:00 97.6 45 16 150/43 (78) 100 04/10/17 20:00 46 04/10/17 20:00 50 04/10/17 19:37 100 40 04/10/17 18:00 87 04/10/17 16:58 100 Ventilator 50 04/10/17 16:31 98.6 78 16 147/45 96 04/10/17 16:06 98.6 76 16 127/48 100 04/10/17 16:00 50 04/10/17 16:00 87 04/10/17 16:00 98.6 87 16 177/90 (119) 100 04/10/17 15:38 45 60/21 04/10/17 15:35 100 100 04/10/17 15:30 80 16 99/55 (70) 99 Ventilator 04/10/17 14:08 80 16 127/45 (72) 98 Ventilator 04/10/17 13:26 103 16 154/50 (84) 100 Ventilator 04/10/17 13:15 99 16 133/47 (75) 99 Ventilator 04/10/17 13:08 104 16 180/64 (102) 100 04/10/17 12:35 100 100 04/10/17 12:15 105 16 100 Ventilator 04/10/17 12:08 100 170/81 04/10/17 12:05 78 Nasal Cannula 2.00 04/10/17 12:00 97.4 100 22 170/81 (110) 04/10/17 12:00 20 Physical Exam GENERAL: This is a well-nourished, well-developed patient, in no apparent distress. SKIN: No rashes, ecchymoses or lesions. Cool and dry. HEAD: Atraumatic. Normocephalic. No temporal or scalp tenderness. EYES: Pupils equal round and reactive. Extraocular motions intact. No scleral icterus. No injection or drainage. ENT: Nose without active bleeding, purulent drainage or septal hematoma. Left nasal pack in place. Throat without erythema, tonsillar hypertrophy or exudate. Uvula midline. Intubated. NECK: Trachea midline. No JVD or lymphadenopathy. Supple, nontender, no meningeal signs. NEUROLOGICAL: Awake, intubate. Appear to be alert. Laboratory Laboratory Tests Test 04/10/17 12:05 04/10/17 12:53 04/10/17 15:50 04/10/17 15:56 White Blood Count 9.2 Red Blood Count 2.95 Hemoglobin 9.4 6.7 Hematocrit 29.4 20.1 Mean Corpuscular Volume 99.6 Mean Corpuscular Hemoglobin 32.0 Mean Corpuscular Hemoglobin Concent 32.1 Red Cell Distribution Width 13.6 Platelet Count 498 Mean Platelet Volume 7.9 Neutrophils (%) (Auto) 76.6 Lymphocytes (%) (Auto) 14.9 Monocytes (%) (Auto) 7.6 Eosinophils (%) (Auto) 0.4 Basophils (%) (Auto) 0.5 Neutrophils # (Auto) 7.1 Lymphocytes # (Auto) 1.4 Monocytes # (Auto) 0.7 Eosinophils # (Auto) 0.0 Basophils # (Auto) 0.0 CBC Comment DIFF FINAL Differential Comment Prothrombin Time 138.3 16.7 Prothromb Time International Ratio 13.9 1.7 Activated Partial Thromboplast Time 86.4 32.7 Blood Urea Nitrogen 28 Creatinine 2.20 Random Glucose 170 Total Protein 7.3 Albumin 2.4 Calcium Level 9.1 Magnesium Level 2.2 Alkaline Phosphatase 350 Aspartate Amino Transf (AST/SGOT) 44 Alanine Aminotransferase (ALT/SGPT) 36 Total Bilirubin 0.9 Sodium Level 136 Potassium Level 4.4 Chloride Level 99 Carbon Dioxide Level 23.6 Anion Gap 13 Estimat Glomerular Filtration Rate 29 Total Creatine Kinase 72 Troponin I 0.07 Blood Gas Puncture Site FEM LINE ART LINE Blood Gas Patient Temperature 98.6 98.6 Blood Gas HCO3 22 23 Blood Gas Base Excess -4.0 -0.4 Blood Gas Oxygen Saturation 97 98 Arterial Blood pH 7.28 7.43 Arterial Blood Partial Pressure CO2 48 36 Arterial Blood Partial Pressure O2 297 474 Arterial Blood Oxygen Content 13.6 11.4 Arterial Blood Carboxyhemoglobin 1.5 0.1 Arterial Blood Methemoglobin 1.4 0.7 Blood Gas Hemoglobin 9.5 7.3 Oxygen Delivery Device VENTILATOR VENTILATOR Blood Gas Ventilator Setting 500/12/PEEP 5 16/500/IT1.0/5PEEP Blood Gas Inspired Oxygen 100 100 Test 04/10/17 22:27 04/11/17 04:47 White Blood Count 14.2 11.9 Red Blood Count 2.59 2.45 Hemoglobin 8.5 8.0 Hematocrit 24.8 23.4 Mean Corpuscular Volume 95.5 95.5 Mean Corpuscular Hemoglobin 32.7 32.8 Mean Corpuscular Hemoglobin Concent 34.2 34.4 Red Cell Distribution Width 14.6 14.5 Platelet Count 378 379 Mean Platelet Volume 7.9 7.9 Prothrombin Time 22.1 27.9 Prothromb Time International Ratio 2.2 2.8 Activated Partial Thromboplast Time 36.8 Neutrophils (%) (Auto) 83.2 Lymphocytes (%) (Auto) 7.9 Monocytes (%) (Auto) 8.3 Eosinophils (%) (Auto) 0.2 Basophils (%) (Auto) 0.4 Neutrophils # (Auto) 9.9 Lymphocytes # (Auto) 0.9 Monocytes # (Auto) 1.0 Eosinophils # (Auto) 0.0 Basophils # (Auto) 0.0 CBC Comment DIFF FINAL Differential Comment Blood Urea Nitrogen 48 Creatinine 2.95 Random Glucose 157 Total Protein 5.3 Albumin 1.8 Calcium Level 8.7 Phosphorus Level 4.0 Magnesium Level 1.8 Alkaline Phosphatase 253 Aspartate Amino Transf (AST/SGOT) 37 Alanine Aminotransferase (ALT/SGPT) 31 Total Bilirubin 0.6 Sodium Level 139 Potassium Level 3.5 Chloride Level 102 Carbon Dioxide Level 24.2 Anion Gap 13 Estimat Glomerular Filtration Rate 21 Result Diagram: 04/11/1744604/11/17446 Assessment and Plan Assessment and Plan Coumadin toxicity, epistaxis. Controlled with medical treatment and packing. Need to keep pack in position at least until Tuesday. Will evaluate for removal then. OK to extubate from ENT point of view, when appropriate. Discussed Condition With Patient and Nurse. Quang Stewart MD Apr 11, 2017 08:39
[2017-04-11] MEDS ORDERED: PANTOPRAZOLE SODIUM 40 MG VIAL IV PUSH SCH (09:00)
[2017-04-11] MEDS: DESMOPRESSIN IV SCH ×2 (09:27→21:03)
[2017-04-11] MEDS: SODIUM CHLORIDE 0.9% IV SCH ×2 (09:27→21:03)
--- NOTE | 2017-04-11 13:52 | HHI.CCPN ---
Subjective Remarks/Hospital Course 76 y/o man developed a persistent nose bleed this morning after dialysis. In ED his INR was > 13 and he received Kcentra for warfarin reversal (permanent a-fib) . Due to airway problems from blood and hypovolemia he sustained a brief cardiopulmonary arrest in the [place] ED requiring intubation and ventilation. He was aggressively resuscitated by the staff at [facility] and transferred to [facility] for ongoing resuscitation. He arrived to the [facility] with BP 52/25 and pulse rate 44. Two units of type specific blood were administered and levophed initiated at 20 mics/min. A central line was placed revealing CVP < 5 while on positive pressure ventilation. Resuscitation is continuing. 04/11/17: Currently epistaxis is controlled. Patient is off Levophed, hypertensive. PRN hydralazine added. Patient continues to have coffee-ground output from the NG tube large amount. INR is 2.8 have added FFP 2 units and vitamin K stat. Repeat CBC and INR stat Objective Vital Signs Date Time Temp Pulse Resp B/P (MAP) Pulse Ox O2 Delivery O2 Flow Rate FiO2 04/11/17 12:00 50 04/11/17 12:00 99.3 75 16 151/76 (101) 100 04/10/17 16:58 Ventilator 04/10/17 12:05 2.00 Intake and Output 04/11/17 04/11/17 04/12/17 08:00 16:00 00:00 Intake Total 1000 ml Output Total 350 ml Balance 650 ml Result Diagram: 04/11/17 0447 04/11/17 0447 Other Results Laboratory Tests Test 04/10/17 15:50 Blood Gas Puncture Site ART LINE Blood Gas Patient Temperature 98.6 Blood Gas HCO3 23 mmol/L (22-26) Blood Gas Base Excess -0.4 mmol/L (-2-2) Blood Gas Oxygen Saturation 98 % (90-100) Arterial Blood pH 7.43 (7.380-7.420) Arterial Blood Partial Pressure CO2 36 mmHg (38-42) Arterial Blood Partial Pressure O2 474 mmHg (61-120) Arterial Blood Oxygen Content 11.4 Vol % (12.0-20.0) Arterial Blood Carboxyhemoglobin 0.1 % (0-4) Arterial Blood Methemoglobin 0.7 % (0-2) Blood Gas Hemoglobin 7.3 G/DL (12.0-16.0) Oxygen Delivery Device VENTILATOR Blood Gas Ventilator Setting 16/500/IT1.0/5PEEP Blood Gas Inspired Oxygen 100 % Objective Remarks Gen: Ill-appearing, pale, elderly man Head: Blood in nares. ENT: OGT in place with large amount of coffee-ground material Neck: Supple, orally intubated. Lungs: Few mobile secretions, good joselyn air movement. Heart: Irreg Irreg, 3/6 THIERRY, LSB. Neck veins not distended. Abdomen: Nondistended, quiet. No guarding. Multiple well-healed surgical scars Extremities: Cold. Pale. Neuro: Opens eyes follows commands 4. Weaker on the left upper extremity A/P Assessment and Plan Assessment: 1. Hypovolemic shock. 2. Coagulopathy, coumadin. 3. Bradycardia. 4. Hypothermia. 5. Respiratory Failure 6. Acute blood loss anemia. 7. Epistaxis. 8. ?Upper GIB 9. ESRD. Plan: Respiratory - PRVC vent mode - Daily SBT. No extubation due to high coffee ground output from OGT CV - Transfuse to Hgb > 7.0 - Levophed to maintain MAP > 65, now off - Hydralazine PRN for hypertension GI - NG to LIS. Continues large amount of coffee-ground output from NG - Reverse coagulopathy with FFP and vitamin K - Protonix. - GI consult - Monitor UO. ESRD on HD - Renal consult - Dr. Maria - Follow lytes closely Heme - Received Kcentra and DDAVP - Transfuse 2 units FFP and 10 mg vitamin K Lines - Left SCV CVL 04/10 Overall impression: Patient is critically ill, s/p resuscitation from hemorrhagic shock related to coagulopathy and epistaxis. Now with coffee ground Upper GIB needing STAT FFP and vit K and Gi consult Critical care 40 mins aside from procedures Den Aguilera MD Apr 11, 2017 13:52
[2017-04-11 13:59] LABS: AUTOMATED NEUTROPHIL # 10.7 TH/MM3 (1.8-7.7); BASOPHIL # 0.1 TH/MM3 (0-0.2); BASOPHIL % 0.6 % (0.0-2.0); EOSINOPHIL % 0.3 % (0.0-4.0); HEMATOCRIT 24.1 % (39.0-51.0); HEMOGLOBIN 8.4 GM/DL (13.0-17.0); LYMPH % 7.3 % (9.0-44.0); LYMPHOCYTE # 0.9 TH/MM3 (1.0-4.8); MEAN CORPUSCULAR HEMOGLOBIN 33.4 PG (27.0-34.0); MEAN CORPUSCULAR HGB CONC 34.8 % (32.0-36.0); MEAN PLATELET VOLUME 7.6 FL (7.0-11.0); MONO % 8.1 % (0.0-8.0); NEUT % 83.7 % (16.0-70.0); PLATELET COUNT 377 TH/MM3 (150-450); RED BLOOD COUNT 2.51 MIL/MM3 (4.50-5.90); RED CELL DISTRIBUTION WIDTH 14.7 % (11.6-17.2); WHITE BLOOD COUNT 12.8 TH/MM3 (4.0-11.0)
[2017-04-11 14:06] LABS: INTERNATIONAL NORMALIZED RATIO 3.3 RATIO
--- NOTE | 2017-04-11 14:47 | PD.CONS ---
HPI Consult Requested By Reason for Consult End-stage renal disease Primary Care Physician Nikolai Carrasquillo M.D. History of Present Illness 76-year-old male with a history of end-stage renal disease on maintenance hemodialysis generally Tuesday and Tuesday however he was dialyzed last Tuesday secondary to the holiday. Subsequently developed epistaxis and presented to the emergency room with hypotension and his INR was said to be greater than 13. Patient was on Coumadin apparently for atrial fibrillation. According to the records patient subsequently required cardiopulmonary resuscitation and was intubated and remains on ventilatory support. Patient appears to be alert and nodding to questions. Nasal pack in place on left side. Review of Systems ROS Limitations: Clinical Condition, Intubated Past Family Social History Allergies: Coded Allergies: No Known Allergies (Verified Allergy, Unknown, 04/10/17) Past Medical History End-stage renal disease failed PD and converted to HD Hypertension Anemia renal disease. 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 Placement of a peritoneal dialysis catheter. Reported Medications Reported Meds & Active Scripts Active Warfarin 7.5 Mg Tab 7.5 Mg PO TUTHSA TAKE ONE TAB (7.5 MG) , , TUE Warfarin 5 Mg Tab 5 Mg PO SUMOWEFR TAKE 1 TAB (5MG) TUE, TUE, TUESDAY, TUESDAY Reported Gabapentin 100 Mg Cap 100 Mg PO TID Lasix (Furosemide) 80 Mg Tab 40 Mg PO BID rx for 80 mg bid but pt is only taking 40mg bid Hydralazine HCl 25 Mg Tablet 75 Mg PO TID Centrum Silver Adult 50+ (Multiple Vitamins W/ Minerals) 1 Tab Tab 1 Tab PO DAILY Flomax (Tamsulosin HCl) 0.4 Mg Cap 0.4 Mg PO DAILY Fluticasone Nasal [place] 50 Mcg/Act Naspr 50 Mcg EACH NARE DAILY 50 mcg/spray Proscar (Finasteride) 5 Mg Tab 5 Mg PO DAILY Do not crush. Lipitor (Atorvastatin Calcium) 10 Mg Tab 10 Mg PO HS Active Ordered Medications Current Medications Rocuronium [place] (Zemuron Inj) 50 mg STK-MED ONCE .ROUTE Last administered on 04/10/17t 12:05; Start 04/10/17 at 12:02; Stop 04/10/17 at 12:03; Status DC Etomidate (Amidate Inj) 20 mg STK-MED ONCE .ROUTE Last administered on 13:28; Start 04/10/17 at 12:04; Stop 04/10/17 at 12:05; Status DC Propofol 100 ml @ As Directed STK-MED ONCE .ROUTE ; Start 04/10/17 at 12:04; Stop 04/10/17 at 12:05; Status DC Phenylephrine HCl (Neosynephrine Inj) 10 mg STK-MED ONCE .ROUTE Last administered on 04/10/17 12:08; Start 04/10/17 at 12:09; Stop 04/10/17 at 12 :10; Status DC Sodium Chloride (NS Flush) 2 ml UNSCH PRN IVF FLUSH AFTER USING IV ACCESS Last administered on 04/10/17 13:31; Start 04/10/17 at 12:30; Stop 04/10/17 at 17 :08; Status DC Sodium Chloride 1,000 ml @ 84 mls/hr [id number] IV Last administered on 04/11/17at 01:07; Start 04/10/17 at 12:30; Stop 04/11/17 at 13:46; Status DC Desmopressin Acetate 15 mcg/ Sodium Chloride 53.75 ml @ 100.5 mls/ hr ONCE ONCE IV Last administered on 04/10/17 13:33; Start 04/10/17 at 13:15; Stop 04/10/17 at 13:47; Status DC Prothrombin Complex Concent (Human) 3000 units/Syringe / Bag 0 ml @ 500 mls/hr ONCE ONCE IV Last administered on 04/10/17 13:33; Start 04/10/17 at 13:45; Stop 04/10/17 at 13:46; Status DC Propofol 100 ml @ 1.83 mls/hr TITRATE PRN IV Ordered RASS Last administered on 04/10/17 13:29; Start 04/10/17 at 13:15; Stop 04/10/17 at 17:07; Status DC Fentanyl Citrate (fentaNYL INJ) 50 mcg ONCE ONCE IV PUSH ; Start 04/10/17 at 14:45; Stop 04/10/17 at 14:46; Status Cancel Fentanyl Citrate (fentaNYL INJ) 50 mcg ONCE ONCE IV PUSH ; Start 04/10/17 at 15:00; Stop 04/10/17 at 15:01; Status DC Norepinephrine Bitartrate 250 ml @ As Directed STK-MED ONCE IV Last administered on 04/10/17 15:38; Start 04/10/17 at 15:38; Stop 04/10/17 at 15 :39; Status DC Atorvastatin Calcium (Lipitor) 10 mg HS PO Last administered on 04/10/17 19: 59; Start 04/10/17 at 21:00 Finasteride (Proscar) 5 mg DAILY PO ; Start 04/11/17 at 09:00 Furosemide (Lasix) 40 mg BID@0900,1800 PO ; Start 04/10/17 at 18:00 Gabapentin (Neurontin) 100 mg TID PO ; Start 04/10/17 at 18:00 Hydralazine HCl (Apresoline) 75 mg TID PO ; Start 04/10/17 at 18:00 Tamsulosin HCl (Flomax) 0.4 mg DAILY PO ; Start 04/11/17 at 09:00 Sodium Chloride (NS Flush) 2 ml UNSCH PRN IV FLUSH FLUSH AFTER USING IV ACCESS ; Start 04/10/17 at 16:45 Sodium Chloride (NS Flush) 2 ml BID IV FLUSH Last administered on 04/10/17 19 :41; Start 04/10/17 at 21:00 Acetaminophen (Tylenol) 650 mg Q6H PRN PO PAIN 1-5 AND/OR FEVER >101F; Start 04/10/17 at 16:45 Morphine Sulfate (Morphine Inj) 2 mg Q2H PRN IV PUSH PAIN SCALE 6 TO 10; Start 04/10/17 at 17:15 Pantoprazole Sodium (Protonix Inj) 40 mg DAILY IV PUSH Last administered on 04/11at 09:27; Start 04/11/17 at 09:00; Stop 04/11/17 at 13:46; Status DC Ondansetron HCl (Zofran Inj) 4 mg Q6H PRN IV PUSH NAUSEA OR VOMITING; Start at 16:45 Albuterol/ Ipratropium (Duoneb Neb) 1 ampule Q4HR NEB PRN INH WHEEZING; Start 04/10/17 at 16:45 Miscellaneous Information 1 Q361D XX Last administered on 04/10/17 16:45; Start 04/10/17 at 16:45 Chlorhexidine Gluconate (Chlorhexidine 2% Cloth) 3 pack Taper DAILY@04 TOP ; Start 04/11/17 at 04:00; Stop 04/07/18 at 03:59 Chlorhexidine Gluconate (Chlorhexidine 2% Cloth) 3 pack UNSCH PRN TOP HYGIENIC CARE; Start 04/10/17 at 16:45 Senna/Docusate Sodium (Clarissa-Colace) 1 tab BID PO Last administered on 19:59; Start 04/10/17 at 21:00 Magnesium Hydroxide (Milk Of Magnesia Liq) 30 ml Q12H PRN PO Mild constipation ; Start 04/10/17 at 16:45 Sennosides (Senokot) 17.2 mg Q12H PRN PO Moderate constipation; Start at 16:45 Bisacodyl (Dulcolax Supp) 10 mg DAILY PRN RECTAL SEVERE CONSITIPATION; Start 04/10/17 at 16:45 Lactulose (Lactulose Liq) 30 ml DAILY PRN PO SEVERE CONSITIPATION; Start 04/10 at 16:45 Chlorhexidine Gluconate (Peridex 0.12% Liq) 15 ml BID@08,20 MT Last administered on 04/11/17at 08:00; Start 04/10/17 at 20:00 Propofol 100 ml @ 1.83 mls/hr TITRATE PRN IV SEDATION Last administered on 21:04; Start 04/10/17 at 16:45 Fentanyl Citrate 250 ml @ 5 mls/hr TITRATE PRN IV SEDATION Last administered on 04/10/17 19:28; Start 04/10/17 at 16:45 Desmopressin Acetate (Ddavp Inj) 10 mcg Q12HR IV PUSH ; Start 04/10/17 at 21:00 ; Stop 04/10/17 at 21:00; Status DC Norepinephrine Bitartrate 4 mg/ Sodium Chloride 250 ml @ 7.5 mls/hr TITRATE PRN IV Blood pressure management; Start 04/10/17 at 17:30; Stop 04/11/17 at 13: 47; Status DC Terbutaline Sulfate (Brethine Inj) 1 mg UNSCH PRN SQ For Extravasation; Start 04/10/17 at 17:30 Acetaminophen (Tylenol Supp) 650 mg Q6H PRN RECTAL PAIN 1-5/FEVER; Start 04/10 at 18:45 Desmopressin Acetate 10 mcg/ Sodium Chloride 52.5 ml @ 210 mls/hr Q12HR IV Last administered on 04/11/17at 09:27; Start 04/10/17 at 21:00; Stop 04/11/17 at 21:14 Hydralazine HCl (Apresoline Inj) 20 mg Q4H PRN IV PUSH SBP >170; Start 04/11/17 at 13:45 Pantoprazole Sodium (Protonix Inj) 40 mg Q12H IV PUSH ; Start 04/11/17 at 21:00 Phytonadione 10 mg/Dextrose 51 ml @ 102 mls/hr ONCE ONCE IV ; Start 04/11/17 at 15:00; Stop 04/11/17 at 15:29 Family History Presently unobtainable from patient. See previous records. Social History No history of illicit drug use. Physical Exam Vital Signs Vital Signs Date Time Temp Pulse Resp B/P (MAP) Pulse Ox O2 Delivery O2 Flow Rate FiO2 04/11/17 14:00 56 04/11/17 12:00 50 04/11/17 12:00 99.3 75 16 151/76 (101) 100 04/11/17 12:00 75 04/11/17 11:46 40 04/11/17 11:43 100 40 04/11/17 10:00 44 04/11/17 08:34 100 40 04/11/17 08:00 50 04/11/17 08:00 99.5 46 16 140/63 (88) 100 04/11/17 08:00 46 04/11/17 06:00 44 04/11/17 04:38 100 40 04/11/17 04:00 97.8 45 15 145/47 (79) 100 04/11/17 04:00 50 04/11/17 04:00 45 04/11/17 02:15 100 40 04/11/17 02:00 59 04/11/17 00:00 99.1 60 15 148/43 (78) 100 04/11/17 00:00 60 04/11/17 00:00 50 04/10/17 22:49 100 40 04/10/17 22:00 46 04/10/17 20:00 97.6 45 16 150/43 (78) 100 04/10/17 20:00 46 04/10/17 20:00 50 04/10/17 19:37 100 40 04/10/17 18:00 87 04/10/17 16:58 100 Ventilator 50 04/10/17 16:31 98.6 78 16 147/45 96 04/10/17 16:06 98.6 76 16 127/48 100 04/10/17 16:00 50 04/10/17 16:00 87 04/10/17 16:00 98.6 87 16 177/90 (119) 100 04/10/17 15:38 45 60/21 04/10/17 15:35 100 100 04/10/17 15:30 80 16 99/55 (70) 99 Ventilator Physical Exam GENERAL: Thin male with ET tube in place not in respiratory distress. SKIN: Warm and dry. HEAD: Normocephalic. EYES: No scleral icterus. No injection or drainage. NECK: trachea midline. No JVD CARDIOVASCULAR: Regular rate and rhythm without murmurs, gallops, or rubs. RESPIRATORY: Breath sounds equal bilaterally. No accessory muscle use. GASTROINTESTINAL: Abdomen soft, non-tender, nondistended. MUSCULOSKELETAL: No cyanosis, or edema. BACK: Nontender without obvious deformity. No CVA tenderness. Laboratory Laboratory Tests Test 04/10/17 15:50 04/10/17 15:56 04/10/17 22:27 04/11/17 04:47 Blood Gas Puncture Site ART LINE Blood Gas Patient Temperature 98.6 Blood Gas HCO3 23 Blood Gas Base Excess -0.4 Blood Gas Oxygen Saturation 98 Arterial Blood pH 7.43 Arterial Blood Partial Pressure CO2 36 Arterial Blood Partial Pressure O2 474 Arterial Blood Oxygen Content 11.4 Arterial Blood Carboxyhemoglobin 0.1 Arterial Blood Methemoglobin 0.7 Blood Gas Hemoglobin 7.3 Oxygen Delivery Device VENTILATOR Blood Gas Ventilator Setting 16/500/IT1.0/5PEEP Blood Gas Inspired Oxygen 100 Hemoglobin 6.7 8.5 8.0 Hematocrit 20.1 24.8 23.4 Prothrombin Time 16.7 22.1 27.9 Prothromb Time International Ratio 1.7 2.2 2.8 Activated Partial Thromboplast Time 32.7 36.8 White Blood Count 14.2 11.9 Red Blood Count 2.59 2.45 Mean Corpuscular Volume 95.5 95.5 Mean Corpuscular Hemoglobin 32.7 32.8 Mean Corpuscular Hemoglobin Concent 34.2 34.4 Red Cell Distribution Width 14.6 14.5 Platelet Count 378 379 Mean Platelet Volume 7.9 7.9 Neutrophils (%) (Auto) 83.2 Lymphocytes (%) (Auto) 7.9 Monocytes (%) (Auto) 8.3 Eosinophils (%) (Auto) 0.2 Basophils (%) (Auto) 0.4 Neutrophils # (Auto) 9.9 Lymphocytes # (Auto) 0.9 Monocytes # (Auto) 1.0 Eosinophils # (Auto) 0.0 Basophils # (Auto) 0.0 CBC Comment DIFF FINAL Differential Comment Blood Urea Nitrogen 48 Creatinine 2.95 Random Glucose 157 Total Protein 5.3 Albumin 1.8 Calcium Level 8.7 Phosphorus Level 4.0 Magnesium Level 1.8 Alkaline Phosphatase 253 Aspartate Amino Transf (AST/SGOT) 37 Alanine Aminotransferase (ALT/SGPT) 31 Total Bilirubin 0.6 Sodium Level 139 Potassium Level 3.5 Chloride Level 102 Carbon Dioxide Level 24.2 Anion Gap 13 Estimat Glomerular Filtration Rate 21 Test 04/11/17 13:38 White Blood Count 12.8 Red Blood Count 2.51 Hemoglobin 8.4 Hematocrit 24.1 Mean Corpuscular Volume 96.0 Mean Corpuscular Hemoglobin 33.4 Mean Corpuscular Hemoglobin Concent 34.8 Red Cell Distribution Width 14.7 Platelet Count 377 Mean Platelet Volume 7.6 Neutrophils (%) (Auto) 83.7 Lymphocytes (%) (Auto) 7.3 Monocytes (%) (Auto) 8.1 Eosinophils (%) (Auto) 0.3 Basophils (%) (Auto) 0.6 Neutrophils # (Auto) 10.7 Lymphocytes # (Auto) 0.9 Monocytes # (Auto) 1.0 Eosinophils # (Auto) 0.0 Basophils # (Auto) 0.1 CBC Comment DIFF FINAL Differential Comment Prothrombin Time 33.0 Prothromb Time International Ratio 3.3 Result Diagram: 04/11/17 1338 04/11/17 0447 Imaging Last 48 hours Impressions Chest X-Ray 04/10/17 1230 Signed Impressions: Service Date/Time: Monday, April 10, 2017 12:41 - CONCLUSION: 1. ET tube in good position. 2. Mild cardiomegaly. 3. Mild patchy consolidation or atelectasis at the left lung base. Willy Cevallos MD Chest X-Ray 04/10/17 0000 Signed Impressions: Service Date/Time: Tuesday, April 10, 2017 16:40 - CONCLUSION: Questionable left lung base consolidation. Scottie Donovan MD Assessment and Plan Problem List: (1) ESRD (end stage renal disease) on dialysis ICD Codes: N18.6 - End stage renal disease; Z99.2 - Dependence on renal dialysis Status: Chronic Plan: Patient's electrolytes and volume status appear to be acceptable. No indication for dialytic support today and I will tentatively plan to do dialysis this Tuesday as scheduled as an outpatient unless otherwise indicated. Medications should be adjusted for the patient's end-stage renal disease. Gadolinium is contraindicated. (2) Anemia of renal disease ICD Codes: D63.1 - Anemia in chronic kidney disease Status: Chronic Plan: Exacerbated by recent epistaxis. Check iron stores and start Epogen. (3) Epistaxis ICD Codes: R04.0 - Epistaxis Status: Acute (4) Coumadin toxicity ICD Codes: T45.511A - Poisoning by anticoagulants, accidental (unintentional), initial encounter Status: Acute Plan: Defer anticoagulation management to primary care physician. (5) HTN (hypertension) ICD Codes: I10 - Essential (primary) hypertension Status: Chronic Danita Maria MD Apr 11, 2017 14:47
[2017-04-11] MEDS ORDERED: PHYTONADIONE INJ 10 MG in DEXTROSE 5% IN WATER INJ 50 ML IV ONE ×2 (15:00)
[2017-04-11] MEDS: hydrALAZINE HCL 20 MG/ML VIAL IV PUSH PRN (15:09)
[2017-04-11] MEDS ORDERED: EPOETIN ALFA 10,000 UNITS/ML VIAL SQ SCH ×2 (15:15→18:00)
[2017-04-11] MEDS: MAGNESIUM SULFATE 1 GM PREMIX 100 ML IV SCH ×2 (16:10→17:50)
[2017-04-11] MEDS ORDERED: METOPROLOL TARTRATE 5 MG/5 ML VIAL IV PUSH ONE (16:15)
[2017-04-11] MEDS: ATORVASTATIN 10 MG TAB PO SCH (20:30)
[2017-04-11] MEDS: PANTOPRAZOLE SODIUM 40 MG VIAL IV PUSH SCH (20:30)
[2017-04-11] MEDS: PIPERACIL-TAZO 2.25 GM PREMIX 50 ML IV SCH (20:42)
[2017-04-12] VITALS (18 sets, daily range): BP systolic 116–155; BP diastolic 58–70; PULSE 45–94; RESP 12–22; TEMP 98.1–98.7; O2SAT 93–100
[2017-04-12] MEDS: fentaNYL DRIP 250 ML IV PRN (01:18)
[2017-04-12] MEDS: CHLORHEXIDINE GLUCONATE 2 % 1 PACK (2 CLOTHS) TOP SCH (03:18)
[2017-04-12 05:01] LABS: HEMATOCRIT 24.5 % (39.0-51.0); HEMOGLOBIN 8.1 GM/DL (13.0-17.0); MEAN CORPUSCULAR HEMOGLOBIN 32.3 PG (27.0-34.0); MEAN CORPUSCULAR HGB CONC 33.2 % (32.0-36.0); MEAN PLATELET VOLUME 7.2 FL (7.0-11.0); PLATELET COUNT 382 TH/MM3 (150-450); RED BLOOD COUNT 2.52 MIL/MM3 (4.50-5.90); RED CELL DISTRIBUTION WIDTH 14.6 % (11.6-17.2); WHITE BLOOD COUNT 16.6 TH/MM3 (4.0-11.0)
[2017-04-12 05:35] LABS: % SATURATION IRON PROFILE 7.5 % (20-50); ALBUMIN 2.1 GM/DL (3.4-5.0); BLOOD UREA NITROGEN 64 MG/DL (7-18); CALCIUM 9.1 MG/DL (8.5-10.1); CHLORIDE 102 MEQ/L (98-107); CREATININE 4.34 MG/DL (0.60-1.30); FERRITIN 1012 NG/ML (26-388); GLOMERULAR FILTRATION RATE 13 ML/MIN (>89); GLUCOSE,RANDOM 147 MG/DL (74-106); IRON (FE) 12 MCG/DL (65-175); PHOSPHORUS 5.1 MG/DL (2.5-4.9); SODIUM (NA) 139 MEQ/L (136-145); TOTAL IRON BINDING CAPACITY 161 MCG/DL (250-450)
--- NOTE | 2017-04-12 05:43 | RADRPT ---
EXAM DATE/TIME: 04/12/2017 05:09 [facility] COMPARISON: CHEST SINGLE AP, April 10, 2017, 16:40. INDICATIONS : Shortness of breath. MEDICAL HISTORY : Hypertension. Stage III renal failure. SURGICAL HISTORY : None. ENCOUNTER: Subsequent ACUITY: 3 days PAIN SCORE: Non-responsive. LOCATION: Bilateral chest FINDINGS: 2 portable frontal views of the chest show worsening bibasilar consolidations. This is more pronounce d on the left. No discrete effusion is observed. Heart is at the upper limits of normal in terms of s ize. Tip of the endotracheal tube 3 cm proximal to reilly. Left subclavian central line. Tip of the n asogastric tube in the fundus of the stomach. CONCLUSION: Worsening bibasilar infiltrates. Darwin Tsai Jr., MD on April 12, 2017 at 5:41 Board Certified Radiologist. This report was verified electronically.
[2017-04-12 06:17] LABS: BACTERIA, URINE RARE /hpf; BLOOD, URINE MOD (NEG); GLUCOSE,URINE 70 mg/dL (NEG); KETONE, URINE TRACE mg/dL (NEG); MUCUS URINE FEW /lpf (OCC); NITRITE,URINE NEG (NEG); RENAL EPITHELIAL CELLS 2 /hpf; SQUAMOUS EPITHELIAL CELL URINE 1 /hpf (0-5); TRANSITIONAL EPI CELLS, URINE 1 /hpf; URINE COLOR YELLOW (YELLW/STRAW); URINE LEUKOCYTE ESTERASE LARGE (NEG)
[2017-04-12 06:18] LABS: BILIRUBIN, URINE NEG (NEG)
[2017-04-12] MEDS: CHLORHEXIDINE 0.12% (ORAL KIT) 15 ML CUP MT SCH ×2 (08:00→20:00)
[2017-04-12] MEDS: TAMSULOSIN HCL 0.4 MG CAP PO SCH (08:04)
[2017-04-12] MEDS: hydrALAZINE HCL 25 MG TAB PO SCH ×4 (08:04→17:55)
[2017-04-12] MEDS: FINASTERIDE 5 MG TAB PO SCH (08:04)
[2017-04-12] MEDS: GABAPENTIN 100 MG CAP PO SCH ×4 (08:04→17:55)
[2017-04-12] MEDS: PIPERACIL-TAZO 2.25 GM PREMIX 50 ML IV SCH ×2 (08:04→20:00)
[2017-04-12] MEDS: PANTOPRAZOLE SODIUM 40 MG VIAL IV PUSH SCH ×2 (08:05→21:00)
[2017-04-12] MEDS: SODIUM CHLORIDE 0.9% FLUSH 10 ML FLUSH IV FLUSH SCH ×2 (08:08→21:00)
[2017-04-12] MEDS: FUROSEMIDE 40 MG TAB PO SCH ×2 (08:08→17:42)
--- NOTE | 2017-04-12 09:48 | HHI.NPPN ---
Subjective History of Present Illness 76-year-old male with a history of end-stage renal disease on maintenance hemodialysis generally Tuesday and Tuesday however he was dialyzed last Tuesday secondary to the holiday. Subsequently developed epistaxis and presented to the emergency room with hypotension and his INR was said to be greater than 13. Patient was on Coumadin apparently for atrial fibrillation. According to the records patient subsequently required cardiopulmonary resuscitation and was intubated and remains on ventilatory support. Patient appears to be alert and nodding to questions. Nasal pack in place on left side. Interval History Pt remains intubated & sedated (Isis Herman) Review of Systems General General Remarks Unable to obtain (Isis Herman) Objective Data Data Vital Signs Date Time Temp Pulse Resp B/P (MAP) Pulse Ox O2 Delivery O2 Flow Rate FiO2 04/12/17 08:15 100 40 04/12/17 08:00 40 04/12/17 08:00 98.4 47 22 132/63 (86) 100 04/12/17 08:00 47 04/12/17 06:00 54 04/12/17 04:08 100 40 04/12/17 04:00 45 04/12/17 04:00 40 04/12/17 04:00 98.5 49 15 131/63 (85) 100 04/12/17 02:00 59 04/12/17 00:00 58 04/12/17 00:00 98.4 58 15 116/58 (77) 100 04/12/17 00:00 40 04/11/17 23:45 100 40 04/11/17 22:00 63 04/11/17 20:00 40 04/11/17 20:00 102.4 68 15 152/66 (94) 99 Arterial Line 04/11/17 20:00 78 04/11/17 19:41 97 40 04/11/17 18:00 79 04/11/17 16:00 99.5 83 15 161/67 (98) 95 04/11/17 16:00 100 40 04/11/17 16:00 50 04/11/17 16:00 82 04/11/17 15:30 99.5 80 18 170/74 98 04/11/17 15:21 99.5 70 17 174/50 99 04/11/17 15:07 99.3 63 15 188/77 99 04/11/17 14:40 100 04/11/17 14:00 56 04/11/17 12:00 50 04/11/17 12:00 99.3 75 16 151/76 (101) 100 04/11/17 12:00 75 04/11/17 11:46 40 04/11/17 11:43 100 40 04/11/17 10:00 44 (Isis Herman) -: 04/12/17 0447 04/12/17 0447 Microbiology 04/11/17 Aerobic Blood Culture, Received Pending 04/11/17 Anaerobic Blood Culture, Received Pending 04/11/17 Aerobic Blood Culture, Received Pending 04/11/17 Anaerobic Blood Culture, Received Pending 04/11/17 Gram Stain - Final, Resulted 04/11/17 Sputum Culture, Resulted Pending 04/12/17 Urine Culture, Received Pending Imaging Last Impressions Chest X-Ray 04/12/17 0600 Signed Impressions: Service Date/Time: Wednesday, April 12, 2017 05:09 - CONCLUSION: Worsening bibasilar infiltrates. Darwin Tsai Jr., MD Medication Review Current Medications Medications (Trade) Dose Ordered Sig/Terra Route Start Time Stop Time Status Last Admin (Lipitor) 10 mg HS PO 04/10/17 21:00 04/11/17 20:30 (Proscar) 5 mg DAILY PO 04/11/17 09:00 04/12/17 08:04 (Lasix) 40 mg BID@0900,1800 PO 04/10/17 18:00 04/12/17 08:08 (Neurontin) 100 mg TID PO 04/10/17 18:00 04/12/17 08:04 (Apresoline) 75 mg TID PO 04/10/17 18:00 04/12/17 08:04 (Flomax) 0.4 mg DAILY PO 04/11/17 09:00 04/12/17 08:04 (NS Flush) 2 ml UNSCH PRN IV FLUSH 04/10/17 16:45 (NS Flush) 2 ml BID IV FLUSH 04/10/17 21:00 04/12/17 08:08 (Tylenol) 650 mg Q6H PRN PO 04/10/17 16:45 (Morphine Inj) 2 mg Q2H PRN IV PUSH 04/10/17 17:15 (Zofran Inj) 4 mg Q6H PRN IV PUSH 04/10/17 16:45 (Duoneb Neb) 1 ampule Q4HR NEB PRN INH 04/10/17 16:45 Miscellaneous Information 1 Q361D XX 04/10/17 16:45 04/10/17 16:45 (Chlorhexidine 2% Cloth) 3 pack Taper DAILY@04 TOP 04/11/17 04:00 04/07/18 03:59 (Chlorhexidine 2% Cloth) 3 pack UNSCH PRN TOP 04/10/17 16:45 (Clarissa-Colace) 1 tab BID PO 04/10/17 21:00 04/11/17 20:30 (Milk Of Magnesia Liq) 30 ml Q12H PRN PO 04/10/17 16:45 (Senokot) 17.2 mg Q12H PRN PO 04/10/17 16:45 (Dulcolax Supp) 10 mg DAILY PRN RECTAL 04/10/17 16:45 (Lactulose Liq) 30 ml DAILY PRN PO 04/10/17 16:45 (Peridex 0.12% Liq) 15 ml BID@08,20 MT 04/10/17 20:00 04/11/17 20:31 Propofol 100 ml @ 1.83 mls/hr TITRATE PRN IV 04/10/17 16:45 04/10/17 21:04 Fentanyl Citrate 250 ml @ 5 mls/hr TITRATE PRN IV 04/10/17 16:45 04/12/17 01:18 (Brethine Inj) 1 mg UNSCH PRN SQ 04/10/17 17:30 (Tylenol Supp) 650 mg Q6H PRN RECTAL 04/10/17 18:45 04/11/17 18:43 (Apresoline Inj) 20 mg Q4H PRN IV PUSH 04/11/17 13:45 04/11/17 15:09 (Protonix Inj) 40 mg Q12H IV PUSH 04/11/17 21:00 04/12/17 08:05 (Epogen Inj) 10,000 units MoWeFr SQ 04/11/17 18:00 04/11/17 17:52 Piperacillin Sod/ Tazobactam Sod 50 ml @ 100 mls/hr Q12H IV 04/11/17 20:00 04/12/17 08:04 (Isis Herman) Physical Exam General Appearance: Comfortable (Isis Herman) Pulmonary Resp Exam: Clear Bilaterally, Breath Sounds Equal (Isis Herman) Cardiology CV Exam: Regular, Normal Sinus Rhythm (Isis Herman) Gastrointestinal/Abdomen GI Exam: Soft, Non-Tender GI Remarks coffee ground discharge from tube (Isis Herman) Integumentary Skin Exam: Clear, Warm (Isis Herman) Extremeties Extremities Exam: Trace Edema (1+ right foot and trace in UEs) (Isis Herman) Neurologic Neuro Exam: Sedated (Isis Herman) Assessment/Plan Problem List: (1) ESRD (end stage renal disease) on dialysis ICD Codes: N18.6 - End stage renal disease; Z99.2 - Dependence on renal dialysis Status: Chronic Plan: Next HD planned for 04/13/17 Medications should be adjusted for the patient's end-stage renal disease. Gadolinium is contraindicated. (2) Anemia of renal disease ICD Codes: D63.1 - Anemia in chronic kidney disease Status: Chronic Plan: Anemia stable GI consult pending Continue with Epo with HD (3) Epistaxis ICD Codes: R04.0 - Epistaxis Status: Resolved (4) Coumadin toxicity ICD Codes: T45.511A - Poisoning by anticoagulants, accidental (unintentional), initial encounter Status: Resolved Plan: Defer anticoagulation management to primary care physician. (5) HTN (hypertension) ICD Codes: I10 - Essential (primary) hypertension Status: Chronic (Isis Herman) Plan The exam, history, and the medical decision-making described in the above note were completed with the assistance of the LISA. I reviewed and agree with the findings presented. (Danita Maria MD) Isis Herman Apr 12, 2017 09:48 Danita Maria MD Apr 20, 2017 17:37
[2017-04-12] MEDS ORDERED: HEPARIN SODIUM - IV 10,000 UNITS/10 ML VIAL PRN (10:00)
--- NOTE | 2017-04-12 10:56 | PD.CONS ---
HPI History of Present Illness This is a 76 year old with hx AF on warfarin who presented with persistent nosebleed and supratherapeutic INR > 13. He was hypovolemic, suffered brief cardiac arrest and was subsequently intubated. Coffeeground emesis noted in NGT. GI consulted for poss UGIB. He has been given vit K, FFP and INR has improved somewhat. Received 2 x PRBC as well. (Jaylene Dudley) PFSH Past Medical History AF GERD scoliosis ESRD Past Surgical History splenectomy hernia repair AV fistula cataracts (Jaylene Dudley) Coded Allergies: No Known Allergies (Verified Allergy, Unknown, 04/10/17) Family History unk Social History per EMR no ETOH, tobacco or illicit drug use currently (Jaylene Dudley) Review of Systems unobtainable (Jaylene Dudley) GI Exam Vitals I&O Vital Signs Date Time Temp Pulse Resp B/P (MAP) Pulse Ox O2 Delivery O2 Flow Rate FiO2 04/12/17 10:00 54 04/12/17 08:15 100 40 04/12/17 08:00 40 04/12/17 08:00 98.4 47 22 132/63 (86) 100 04/12/17 08:00 47 04/12/17 06:00 54 04/12/17 04:08 100 40 04/12/17 04:00 45 04/12/17 04:00 40 04/12/17 04:00 98.5 49 15 131/63 (85) 100 04/12/17 02:00 59 04/12/17 00:00 58 04/12/17 00:00 98.4 58 15 116/58 (77) 100 04/12/17 00:00 40 04/11/17 23:45 100 40 04/11/17 22:00 63 04/11/17 20:00 40 04/11/17 20:00 102.4 68 15 152/66 (94) 99 Arterial Line 04/11/17 20:00 78 04/11/17 19:41 97 40 04/11/17 18:00 79 04/11/17 16:00 99.5 83 15 161/67 (98) 95 04/11/17 16:00 100 40 04/11/17 16:00 50 04/11/17 16:00 82 04/11/17 15:30 99.5 80 18 170/74 98 04/11/17 15:21 99.5 70 17 174/50 99 04/11/17 15:07 99.3 63 15 188/77 99 04/11/17 14:40 100 04/11/17 14:00 56 04/11/17 12:00 50 04/11/17 12:00 99.3 75 16 151/76 (101) 100 04/11/17 12:00 75 04/11/17 11:46 40 04/11/17 11:43 100 40 I/O 04/11/17 04/11/17 04/11/17 04/12/17 04/12/17 04/12/17 06:59 14:59 22:59 06:59 14:59 22:59 Intake Total 1000 ml 726.0 ml 338.9 ml Output Total 350 ml 275 ml 100 ml Balance 650 ml 451.0 ml 238.9 ml Intake IV Total 1000 ml 303.0 ml 278.9 ml FFP 423 ml Other 60 ml Output Urine Total 50 ml 75 ml 50 ml Gastric Drainage Total 300 ml 200 ml 50 ml # Bowel Movements 0 Imaging Last Impressions Chest X-Ray 04/12/17 0600 Signed Impressions: Service Date/Time: Wednesday, April 12, 2017 05:09 - CONCLUSION: Worsening bibasilar infiltrates. Darwin Tsai Jr., MD Laboratory Test 04/11/17 13:38 04/12/17 04:47 04/12/17 05:58 White Blood Count 12.8 TH/MM3 16.6 TH/MM3 Red Blood Count 2.51 MIL/MM3 2.52 MIL/MM3 Hemoglobin 8.4 GM/DL 8.1 GM/DL Hematocrit 24.1 % 24.5 % Mean Corpuscular Volume 96.0 FL 97.0 FL Mean Corpuscular Hemoglobin 33.4 PG 32.3 PG Mean Corpuscular Hemoglobin Concent 34.8 % 33.2 % Red Cell Distribution Width 14.7 % 14.6 % Platelet Count 377 TH/MM3 382 TH/MM3 Mean Platelet Volume 7.6 FL 7.2 FL Neutrophils (%) (Auto) 83.7 % Lymphocytes (%) (Auto) 7.3 % Monocytes (%) (Auto) 8.1 % Eosinophils (%) (Auto) 0.3 % Basophils (%) (Auto) 0.6 % Neutrophils # (Auto) 10.7 TH/MM3 Lymphocytes # (Auto) 0.9 TH/MM3 Monocytes # (Auto) 1.0 TH/MM3 Eosinophils # (Auto) 0.0 TH/MM3 Basophils # (Auto) 0.1 TH/MM3 CBC Comment DIFF FINAL Differential Comment Prothrombin Time 33.0 SEC Prothromb Time International Ratio 3.3 RATIO Blood Urea Nitrogen 64 MG/DL Creatinine 4.34 MG/DL Random Glucose 147 MG/DL Albumin 2.1 GM/DL Calcium Level 9.1 MG/DL Phosphorus Level 5.1 MG/DL Sodium Level 139 MEQ/L Potassium Level 3.8 MEQ/L Chloride Level 102 MEQ/L Carbon Dioxide Level 25.0 MEQ/L Anion Gap 12 MEQ/L Estimat Glomerular Filtration Rate 13 ML/MIN Iron Level 12 MCG/DL Total Iron Binding Capacity 161 MCG/DL Percent Iron Saturation 7.5 % Ferritin 1012 NG/ML Urine Color YELLOW Urine Turbidity HAZY Urine pH 6.0 Urine Specific [place] 1.017 Urine Protein 300 mg/dL Urine Glucose (UA) 70 mg/dL Urine Ketones TRACE mg/dL Urine Occult Blood MOD Urine Nitrite NEG Urine Bilirubin NEG Urine Urobilinogen LESS THAN 2.0 MG/DL Urine Leukocyte Esterase LARGE Urine RBC /hpf Urine WBC /hpf Urine Squamous Epithelial Cells 1 /hpf Urine Transitional Epithelial Cells 1 /hpf Urine Renal Epithelial Cells 2 /hpf Urine Bacteria RARE /hpf Urine Mucus FEW /lpf Microscopic Urinalysis Comment CATH-CULTURE IND Date/Time Source Procedure Growth Status 04/11/17 20:15 Blood Peripheral Aerobic Blood Culture Pending Received 04/11/17 20:15 Blood Peripheral Anaerobic Blood Culture Pending Received 04/11/17 20:10 Sputum Endotracheal Gram Stain - Final Resulted 04/11/17 20:10 Sputum Endotracheal Sputum Culture Pending Resulted 04/12/17 05:58 Urine Catheterized Urine Urine Culture Pending Received Physical Examination HEENT: normocephalic; atraumatic; no jaundice. intubated. OGT with dark maroon output CHEST: CTA CARDIAC: RRR ABDOMEN: Soft, nondistended, nontender; no hepatosplenomegaly; bowel sounds are present in all four quadrants. EXTREMITIES: No clubbing, cyanosis, or edema. SKIN: Normal; no rash; no jaundice. 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 persistent nosebleed. ENT has evaluated. presented with INR >13 - anemia - likely multifactorial as pt has ESRD, also 2/2 above. stable after 2 x PRBC - coagulopathy - was on warfarin for AF, p/w INR >13. received 2 x FFP, vit k INR 3.3 today -ESRD nephrology following PLAN - EGD when coagulopathy corrected - monitor labs - transfuse as needed - supportive care - further recs to follow This pt seen by myself and Dr Yi and this note is written on his behalf (Jaylene Dudley) Physician Comments Seen and examined with VASILE, gi consulted for coffee grounds in NG after nose bleed secondary to hyper coagulable state. Ng to l. i. s. Transfuse ffp and prbc as needed. Egd depending upon clinical course. Dr. Yi to follow. Thank you (Saran Zuniga MD) Jaylene Dudley Apr 12, 2017 10:56 Saran Zuniga MD Apr 12, 2017 18:57
[2017-04-12] MEDS ORDERED: SODIUM CHLORIDE 0.9% FLUSH 10 ML FLUSH IV FLUSH PRN (11:15)
[2017-04-12] MEDS ORDERED: MANNITOL 12.5 GM/50 ML VIAL IV PRN (11:15)
[2017-04-12] MEDS ORDERED: SODIUM CHLOR 0.9% 1000 ML INJ 1,000 ML OTHER PRN ×2 (11:15)
[2017-04-12] MEDS ORDERED: SODIUM CHLOR 0.9% 1000 ML INJ 1,000 ML IV PRN (11:15)
[2017-04-12] MEDS: hydrALAZINE HCL 20 MG/ML VIAL IV PUSH PRN ×2 (11:21→17:43)
[2017-04-12] MEDS ORDERED: ALBUMIN 25% INJ 100 ML IV PRN (11:30)
[2017-04-12] MEDS ORDERED: cloNIDine HCL 0.1 MG TAB PO PRN (11:30)
[2017-04-12] MEDS ORDERED: ONDANSETRON HCL 4 MG/2 ML VIAL IV PUSH PRN (11:30)
[2017-04-12] MEDS ORDERED: NITROGLYCERIN 0.4 MG SL 25 TABS/BTL SL PRN (11:30)
[2017-04-12] MEDS ORDERED: diphenhydrAMINE HCL 25 MG CAP PO PRN (11:30)
[2017-04-12] MEDS ORDERED: ACETAMINOPHEN 325 MG TAB PO PRN (11:30)
[2017-04-12] MEDS ORDERED: GENTAMICIN SULFATE 20 MG/2 ML VIAL OTHER PRN (11:30)
[2017-04-12] MEDS ORDERED: HEPARIN SODIUM - IV 10,000 UNITS/10 ML VIAL IV FLUSH PRN (11:30)
[2017-04-12] MEDS ORDERED: MAGNESIUM SULFATE 1 GM PREMIX 100 ML IV STA (13:50)
[2017-04-12] MEDS: RESP: ALBUTEROL 2.5 MG/IPRATROPIUM 0.5 MG NEB (PRN) INH ×3 (14:28→22:29)
--- NOTE | 2017-04-12 14:28 | HHI.CCPN ---
Subjective Remarks/Hospital Course 76 y/o man developed a persistent nose bleed this morning after dialysis. In ED his INR was > 13 and he received Kcentra for warfarin reversal (permanent a-fib) . Due to airway problems from blood and hypovolemia he sustained a brief cardiopulmonary arrest in the [place] ED requiring intubation and ventilation. He was aggressively resuscitated by the staff at [facility] and transferred to [facility] for ongoing resuscitation. He arrived to the [facility] with BP 52/25 and pulse rate 44. Two units of type specific blood were administered and levophed initiated at 20 mics/min. A central line was placed revealing CVP < 5 while on positive pressure ventilation. Resuscitation is continuing. 04/11/17: Currently epistaxis is controlled. Patient is off Levophed, hypertensive. PRN hydralazine added. Patient continues to have coffee-ground output from the NG tube large amount. INR is 2.8 have added FFP 2 units and vitamin K stat. Repeat CBC and INR stat 04/12/17: Remains intubated but wakes up easily follows commands. Left upper extremity weaker. INR was 3.3 yesterday received 2 units FFP and vitamin K repeat INR pending. No further epistaxis and NGT output minimal Objective Vital Signs Date Time Temp Pulse Resp B/P (MAP) Pulse Ox O2 Delivery O2 Flow Rate FiO2 04/12/17 12:00 40 04/12/17 12:00 98.7 74 14 155/65 (95) 100 04/10/17 16:58 Ventilator 04/10/17 12:05 2.00 Intake and Output 04/12/17 04/12/17 04/13/17 08:00 16:00 00:00 Intake Total 338.9 ml Output Total 100 ml Balance 238.9 ml Result Diagram: 04/12/17 0447 04/12/17 044 Objective Remarks Gen: Ill-appearing, pale, elderly man Head: Blood in nares now dried up, no active bleeding ENT: OGT in place minimla coffee-ground material Neck: Supple, orally intubated. Lungs: Chest bilaterally clear to auscultation good joselyn air movement. Heart: Irreg Irreg, 3/6 THIERRY, LSB. Neck veins not distended. Abdomen: Nondistended, quiet. No guarding. Multiple well-healed surgical scars Extremities: Cold. Pale. Neuro: Opens eyes follows commands 4. Weaker on the left upper extremity A/P Assessment and Plan Assessment: 1. Hypovolemic shock-resolved 2. Coagulopathy, coumadin. 3. Bradycardia. 4. Hypothermia. 5. Respiratory Failure 6. Acute blood loss anemia. 7. Epistaxis. 8. Upper GIB 9. ESRD. 10. GPC bacteremia 04/14 bottle 11. LUE weakness, r/o stroke Plan: Neuro: - CT head to r/o stroke Respiratory - PRVC vent mode - Daily SBT. Extubate to NC CV - Transfuse to Hgb > 7.0 - Levophed to maintain MAP > 65, now off - Hydralazine PRN for hypertension GI - NG to LIS. Continues large amount of coffee-ground output from NG - Reverse coagulopathy with K Centra and DDAVP. s/p 2U FFP and vitamin K 04/11/17 - Repeat INR today - Protonix. - GI consult-plan for EGD after coagulopathy reversed - Monitor UO. ESRD on HD - Renal consulted - Dr. Maria - Follow lytes closely Heme - Received Kcentra and DDAVP - Transfuse 2 units FFP and 10 mg vitamin K 04/11/17 Lines - Left SCV CVL 04/10-DC today Level 3 Den Aguilera MD Apr 12, 2017 14:28
[2017-04-12 14:51] LABS: INTERNATIONAL NORMALIZED RATIO 1.3 RATIO; PROTHROMBIN TIME - PATIENT 13.4 SEC (9.8-11.6)
--- NOTE | 2017-04-12 16:40 | RADRPT ---
EXAM DATE/TIME: 04/12/2017 16:08 [place] COMPARISON: No previous studies available for comparison. INDICATIONS : Altered mental status with confusion. RADIATION DOSE: 56.35 CTDIvol (mGy) MEDICAL HISTORY : Cardiovascular disease. Hypertension. Renal failure, acute.Diabetes. SURGICAL HISTORY : None. ENCOUNTER: Initial ACUITY: 1 day PAIN SCALE: Non-responsive LOCATION: Bilateral cranial TECHNIQUE: Multiple contiguous axial images were obtained of the head. Using automated exposure control and adj ustment of the mA and/or kV according to patient size, radiation dose was kept as low as reasonably a chievable to obtain optimal diagnostic quality images. DICOM format image data is available electro nically for review and comparison. FINDINGS: There is no evidence for intracranial hemorrhage, mass effect, mass lesions, edema, or extra-axial fl uid collections. The visualized bony structures appear intact. The ventricles are normal size for t he patient's age. There are no signs of acute infarction for technique. There is opacification of mu ltiple sinuses including the maxillary sinuses sphenoid sinuses and eithmoid air cells chronic in nissa ure. Slight degree of brain atrophy is seen. Slight periventricular white matter changes are seen non specific mostly consistent with chronic small vessel ischemic changes. CONCLUSION: Chronic changes without hemorrhage mass effect. Scottie Donovan MD on April 12, 2017 at 16:36 Board Certified Radiologist. This report was verified electronically.
[2017-04-12] MEDS ORDERED: Vancomycin Consult Pharmacy 1 EA OTHER SCH (17:45)
[2017-04-12] MEDS ORDERED: VANCOMYCIN 1,000 MG/NS 250 ML IV ONE ×2 (18:00)
[2017-04-12] MEDS: ATORVASTATIN 10 MG TAB PO SCH (21:00)
[2017-04-12] MEDS: DOCUSATE SODIUM 50 MG/SENNA 8.6 MG TAB PO SCH (21:00)
[2017-04-12] MEDS ORDERED: VANCOMYCIN 500 MG/NS 100 ML IV ONE ×2 (21:00)
[2017-04-13] VITALS (12 sets, daily range): BP systolic 131–182; BP diastolic 65–78; PULSE 56–94; RESP 15–22; TEMP 97.6–98.1; O2SAT 99–100
[2017-04-13] MEDS: MORPHINE SULFATE 2 MG/ML INJ IV PUSH PRN ×2 (02:38→18:16)
[2017-04-13] MEDS: CHLORHEXIDINE GLUCONATE 2 % 1 PACK (2 CLOTHS) TOP SCH (04:00)
[2017-04-13 06:08] LABS: HEMATOCRIT 24.4 % (39.0-51.0); HEMOGLOBIN 7.9 GM/DL (13.0-17.0); MEAN CELL VOLUME 98.3 FL (80.0-100.0); MEAN CORPUSCULAR HEMOGLOBIN 31.9 PG (27.0-34.0); MEAN CORPUSCULAR HGB CONC 32.4 % (32.0-36.0); MEAN PLATELET VOLUME 8.2 FL (7.0-11.0); PLATELET COUNT 424 TH/MM3 (150-450); RED BLOOD COUNT 2.48 MIL/MM3 (4.50-5.90); RED CELL DISTRIBUTION WIDTH 15.1 % (11.6-17.2); WHITE BLOOD COUNT 17.4 TH/MM3 (4.0-11.0)
[2017-04-13 06:34] LABS: BICARBONATE 22.3 MEQ/L (21.0-32.0); CALCIUM 9.5 MG/DL (8.5-10.1); CREATININE 5.49 MG/DL (0.60-1.30); PHOSPHORUS 6.5 MG/DL (2.5-4.9)
--- NOTE | 2017-04-13 07:39 | HHI.PR ---
Subjective Remarks Coag status normalized. No nosebleed. Packing removed without incident. Objective Vital Signs Date Time Temp Pulse Resp B/P (MAP) Pulse Ox O2 Delivery O2 Flow Rate FiO2 04/13/17 06:08 73 04/13/17 04:00 70 22 141/65 (90) 100 04/13/17 04:00 70 04/13/17 02:00 71 04/13/17 00:00 74 04/13/17 00:00 98.0 70 20 131/68 (89) 99 04/12/17 22:00 70 04/12/17 20:00 68 04/12/17 19:41 95 Simple Mask 7.00 04/12/17 19:00 98 Simple Mask 6.00 04/12/17 18:00 82 04/12/17 18:00 95 Simple Mask 6.00 04/12/17 16:00 98.1 94 12 155/70 (98) 100 04/12/17 16:00 94 04/12/17 15:17 93 Nasal Cannula 4.00 04/12/17 14:25 93 Nasal Cannula 4.00 04/12/17 14:25 91 04/12/17 14:25 94 Nasal Cannula 4 04/12/17 14:00 86 04/12/17 12:00 40 04/12/17 12:00 98.7 74 14 155/65 (95) 100 04/12/17 12:00 74 04/12/17 11:15 40 04/12/17 11:12 98 40 04/12/17 10:00 54 04/12/17 08:15 100 40 04/12/17 08:00 40 04/12/17 08:00 98.4 47 22 132/63 (86) 100 04/12/17 08:00 47 I/O 04/12/17 04/12/17 04/12/17 04/13/17 04/13/17 04/13/17 07:00 15:00 23:00 07:00 15:00 23:00 Intake Total 338.9 ml 60 ml Output Total 100 ml 75 ml 0 ml Balance 238.9 ml -15 ml 0 ml Intake IV Total 278.9 ml Other 60 ml 60 ml Output Urine Total 50 ml 50 ml 0 ml Gastric Drainage Total 50 ml 25 ml 0 ml # Bowel Movements 0 0 0 Result Diagram: 04/13/17 0550 04/13/17 0550 Assessment and Plan Assessment and Plan Coumadin toxicity, epistaxis. Packing removed, no bleed. No mass. CT head showed no nasal mass. ENT prn, please call if needed. Quang Stewart MD Apr 13, 2017 07:39
[2017-04-13] MEDS: CHLORHEXIDINE 0.12% (ORAL KIT) 15 ML CUP MT SCH ×2 (08:00→21:04)
[2017-04-13] MEDS: SODIUM CHLORIDE 0.9% FLUSH 10 ML FLUSH IV FLUSH SCH ×2 (09:00→21:05)
[2017-04-13] MEDS: DOCUSATE SODIUM 50 MG/SENNA 8.6 MG TAB PO SCH ×2 (09:00→20:30)
[2017-04-13] MEDS: TAMSULOSIN HCL 0.4 MG CAP PO SCH (09:00)
[2017-04-13] MEDS: FUROSEMIDE 40 MG TAB PO SCH ×2 (09:00→17:32)
[2017-04-13] MEDS: GABAPENTIN 100 MG CAP PO SCH ×3 (09:00→18:00)
[2017-04-13] MEDS: FINASTERIDE 5 MG TAB PO SCH (09:00)
[2017-04-13] MEDS: hydrALAZINE HCL 25 MG TAB PO SCH ×3 (09:00→18:00)
[2017-04-13] MEDS: PIPERACIL-TAZO 2.25 GM PREMIX 50 ML IV SCH ×2 (09:56→21:04)
[2017-04-13] MEDS: PANTOPRAZOLE SODIUM 40 MG VIAL IV PUSH SCH ×2 (09:57→21:05)
--- NOTE | 2017-04-13 12:44 | HHI.GIFU ---
Subjective Remarks Pt now extubated, present at bedside to provide further history. He has had recurrent nosebleeds and allergy problems prior to admission. no prior hx GIB. She does not wish to pursue further GI w/u at this time. Objective Vitals I&O Vital Signs Date Time Temp Pulse Resp B/P (MAP) Pulse Ox O2 Delivery O2 Flow Rate FiO2 04/13/17 10:00 67 04/13/17 10:00 99 Nasal Cannula 4.00 04/13/17 08:00 70 04/13/17 08:00 97.6 70 15 156/72 (100) 100 04/13/17 07:00 100 Simple Mask 6.00 04/13/17 06:08 73 04/13/17 04:00 70 22 141/65 (90) 100 04/13/17 04:00 70 04/13/17 02:00 71 04/13/17 00:00 74 04/13/17 00:00 98.0 70 20 131/68 (89) 99 04/12/17 22:00 70 04/12/17 20:00 68 04/12/17 19:41 95 Simple Mask 7.00 04/12/17 19:00 98 Simple Mask 6.00 04/12/17 18:00 82 04/12/17 18:00 95 Simple Mask 6.00 04/12/17 16:00 98.1 94 12 155/70 (98) 100 04/12/17 16:00 94 04/12/17 15:17 93 Nasal Cannula 4.00 04/12/17 14:25 93 Nasal Cannula 4.00 04/12/17 14:25 91 04/12/17 14:25 94 Nasal Cannula 4 04/12/17 14:00 86 I/O 04/12/17 04/12/17 04/12/17 04/13/17 04/13/17 04/13/17 07:00 15:00 23:00 07:00 15:00 23:00 Intake Total 338.9 ml 60 ml Output Total 100 ml 75 ml 0 ml Balance 238.9 ml -15 ml 0 ml Intake IV Total 278.9 ml Other 60 ml 60 ml Output Urine Total 50 ml 50 ml 0 ml Gastric Drainage Total 50 ml 25 ml 0 ml # Bowel Movements 0 0 0 Laboratory Laboratory Tests Test 04/12/17 14:30 04/13/17 05:50 Prothrombin Time 13.4 Prothromb Time International Ratio 1.3 White Blood Count 17.4 Red Blood Count 2.48 Hemoglobin 7.9 Hematocrit 24.4 Mean Corpuscular Volume 98.3 Mean Corpuscular Hemoglobin 31.9 Mean Corpuscular Hemoglobin Concent 32.4 Red Cell Distribution Width 15.1 Platelet Count 424 Mean Platelet Volume 8.2 Blood Urea Nitrogen 79 Creatinine 5.49 Random Glucose 176 Albumin 2.0 Calcium Level 9.5 Phosphorus Level 6.5 Sodium Level 138 Potassium Level 4.9 Chloride Level 101 Carbon Dioxide Level 22.3 Anion Gap 15 Estimat Glomerular Filtration Rate 10 Date/Time Source Procedure Growth Status 04/11/17 20:15 Blood Peripheral Aerobic Blood Culture - Preliminary Staph Sp Coagulase Negative Resulted 04/11/17 20:15 Anaerobic Blood Culture - Preliminary Staphylococcus Epidermidis Resulted 04/11/17 20:10 Sputum Endotracheal Gram Stain - Final Complete 04/11/17 20:10 Sputum Endotracheal Sputum Culture - Final HEAVY GROWTH NORMAL RESPIRATORY ARABELLA Complete 04/12/17 05:58 Urine Catheterized Urine Urine Culture Pending Received Physical Exam GEN: ill appearing, thin HEENT: normocephalic; atraumatic; no jaundice CHEST: CTA CARDIAC: RRR ABDOMEN: Soft, mildly distended, nontender; no hepatosplenomegaly; bowel sounds are present in all four quadrants. EXTREMITIES: No clubbing, cyanosis, or edema. SKIN: Normal; no rash; no jaundice. 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 persistent nosebleed. ENT has evaluated. presented with INR >13 INR now 1.3 HH stable. does not wish to pursue endoscopy. hx nosebleeds prior to admission. is possible he had severe nosebleed and swallowed blood. - anemia - likely multifactorial as pt has ESRD, also 2/2 above. stable after 2 x PRBC - coagulopathy - was on warfarin for AF, p/w INR >13. received 2 x FFP, vit k INR 1.3 -ESRD nephrology following PLAN - monitor HH - transfuse as necessary - refusing procedures - GI will sign off. please reconsult if needed. This discussed with Dr Yi and this note is written on his behalf Jaylene Dudley Apr 13, 2017 12:44
--- NOTE | 2017-04-13 14:58 | HHI.CCPN ---
Subjective Remarks/Hospital Course 76 y/o man developed a persistent nose bleed this morning after dialysis. In ED his INR was > 13 and he received Kcentra for warfarin reversal (permanent a-fib) . Due to airway problems from blood and hypovolemia he sustained a brief cardiopulmonary arrest in the [place] ED requiring intubation and ventilation. He was aggressively resuscitated by the staff at [facility] and transferred to [facility] for ongoing resuscitation. He arrived to the [facility] with BP 52/25 and pulse rate 44. Two units of type specific blood were administered and levophed initiated at 20 mics/min. A central line was placed revealing CVP < 5 while on positive pressure ventilation. Resuscitation is continuing. 04/11/17: Currently epistaxis is controlled. Patient is off Levophed, hypertensive. PRN hydralazine added. Patient continues to have coffee-ground output from the NG tube large amount. INR is 2.8 have added FFP 2 units and vitamin K stat. Repeat CBC and INR stat 04/12/17: Remains intubated but wakes up easily follows commands. Left upper extremity weaker. INR was 3.3 yesterday received 2 units FFP and vitamin K repeat INR pending. No further epistaxis and NGT output minimal 04/13/17: Extubated yesterday tolerating well. Blood cultures 4 out of 4 bottles positive for coag negative staph. ID consulted 2-D echo ordered. No further epistaxis reported. refused EGD Objective Vital Signs Date Time Temp Pulse Resp B/P (MAP) Pulse Ox O2 Delivery O2 Flow Rate FiO2 04/13/17 12:00 69 04/13/17 10:00 99 Nasal Cannula 4.00 04/13/17 08:00 97.6 15 156/72 (100) 04/12/17 12:00 40 Intake and Output 04/13/17 04/13/17 04/14/17 08:00 16:00 00:00 Output Total 0 ml Balance 0 ml Result Diagram: 04/13/17 0550 04/13/17 0550 Other Results Microbiology Date/Time Source Procedure Growth Status 04/11/17 20:10 Sputum Endotracheal Gram Stain - Final Complete 04/11/17 20:10 Sputum Endotracheal Sputum Culture - Final HEAVY GROWTH NORMAL RESPIRATORY ARABELLA Complete Objective Remarks Gen: Ill-appearing, pale, elderly man, on HI Head: Blood in nares now dried up, no active bleeding ENT: Extubated airway widely patent Neck: Supple, no JVD Lungs: Chest bilaterally clear to auscultation good joselyn air movement. Heart: Irreg Irreg, 3/6 THIERRY, LSB. Neck veins not distended. Abdomen: Nondistended, quiet. No guarding. Multiple well-healed surgical scars Extremities: Cold. Pale. Neuro: Patient is slightly lethargic but opens eyes follows commands. Remains weak on left upper extremity A/P Assessment and Plan Assessment: Coag negative staph bacteremia/sepsis Hypovolemic shock-resolved Coagulopathy, coumadin. Bradycardia. Respiratory Failure-resolved Acute blood loss anemia. Epistaxis-resolved Upper GIB ESRD. LUE weakness most likely is local weakness secondary to severe arthritis Plan: Neuro: - CT head to r/o stroke-negative for acute findings - Weakness of her left upper extremity most likely related to arthritis and rotator cuff tendinitis Respiratory - Extubated yesterday tolerating well - Continue with aggressive pulmonary toilet, EzPAP, ACapella CV - Transfuse to Hgb > 7.0 - Hydralazine PRN for hypertension GI - No further upper GI bleed, patient's refused any GI procedures - Reverse coagulopathy with K Centra and DDAVP. s/p 2U FFP and vitamin K 04/11/17 - Protonix. - Monitor UO. ESRD on HD, getting hemodialysis today - Renal consulted - Dr. Maria - Follow lytes closely Heme - Received Kcentra and DDAVP - Transfuse 2 units FFP and 10 mg vitamin K 04/11/17 ID: - 4 out of 4 bottles staph epi bacteremia - Check 2-D echo consult ID - Continue IV vancomycin, repeat cultures Lines - Left SCV CVL 04/10-DCd Level 3 Den Aguilera MD Apr 13, 2017 14:58
[2017-04-13] MEDS ORDERED: VANCOMYCIN INJ 1,250 MG in SODIUM CHLOR 0.9% 250 ML INJ 250 ML IV ONE (16:00)
--- NOTE | 2017-04-13 16:17 | HHI.NPPN ---
Subjective History of Present Illness 76-year-old male with a history of end-stage renal disease on maintenance hemodialysis generally Tuesday and Tuesday however he was dialyzed last Tuesday secondary to the holiday. Subsequently developed epistaxis and presented to the emergency room with hypotension and his INR was said to be greater than 13. Patient was on Coumadin apparently for atrial fibrillation. According to the records patient subsequently required cardiopulmonary resuscitation and was intubated and remains on ventilatory support. Patient appears to be alert and nodding to questions. Nasal pack in place on left side. Interval History Critical care notes reviewed. Patient now extubated and was seen during dialysis today. Dialysis fistula appears to be working well. Objective Data Data Vital Signs Date Time Temp Pulse Resp B/P (MAP) Pulse Ox O2 Delivery O2 Flow Rate FiO2 04/13/17 12:00 69 04/13/17 10:00 67 04/13/17 10:00 99 Nasal Cannula 4.00 04/13/17 08:00 70 04/13/17 08:00 97.6 70 15 156/72 (100) 100 04/13/17 07:00 100 Simple Mask 6.00 04/13/17 06:08 73 04/13/17 04:00 70 22 141/65 (90) 100 04/13/17 04:00 70 04/13/17 02:00 71 04/13/17 00:00 74 04/13/17 00:00 98.0 70 20 131/68 (89) 99 04/12/17 22:00 70 04/12/17 20:00 68 04/12/17 19:41 95 Simple Mask 7.00 04/12/17 19:00 98 Simple Mask 6.00 04/12/17 18:00 82 04/12/17 18:00 95 Simple Mask 6.00 -: 04/13/17 0550 04/13/17 0550 Physical Exam General Appearance: Comfortable Pulmonary Resp Exam: Clear Bilaterally, Breath Sounds Equal Cardiology CV Exam: Regular, Normal Sinus Rhythm Gastrointestinal/Abdomen GI Exam: Soft, Non-Tender Integumentary Skin Exam: Clear, Warm Extremeties Extremities Exam: Trace Edema (1+ right foot and trace in UEs) Neurologic Neuro Exam: Alert, Awake, Moving All Extremities Assessment/Plan Problem List: (1) ESRD (end stage renal disease) on dialysis ICD Codes: N18.6 - End stage renal disease; Z99.2 - Dependence on renal dialysis Status: Chronic Plan: Next HD planned for 04/13/17 Medications should be adjusted for the patient's end-stage renal disease. Gadolinium is contraindicated. (2) Anemia of renal disease ICD Codes: D63.1 - Anemia in chronic kidney disease Status: Chronic Plan: Patient noted to have low iron stores however blood cultures said to be positive for staph epi. Await evaluation by infectious disease. Defer parental iron therapy until clarification obtained as to whether not the patient has an active infection. Continue with Epo with HD (3) Epistaxis ICD Codes: R04.0 - Epistaxis Status: Acute (4) Coumadin toxicity ICD Codes: T45.511A - Poisoning by anticoagulants, accidental (unintentional), initial encounter Status: Acute Plan: Defer anticoagulation management to primary care physician. (5) HTN (hypertension) ICD Codes: I10 - Essential (primary) hypertension Status: Chronic Danita Maria MD Apr 13, 2017 16:17
[2017-04-13] MEDS: EPOETIN ALFA 10,000 UNITS/ML VIAL IV PUSH PRN (17:00)
[2017-04-13] MEDS: GELATIN 12 MM/7 MM FOAM TOP PRN (17:20)
--- NOTE | 2017-04-13 17:33 | MB ---
cc: AMOR ELAM MD DATE OF CONSULTATION: 04/13/2017 REASON FOR CONSULTATION: Coagulase-negative Staph bacteremia. REQUESTING PHYSICIAN: Dr. Aguilera. HISTORY OF PRESENT ILLNESS: This is a 76-year-old white male who was admitted to the hospital on 04/10 with epistaxis. The patient has end-stage renal disease and undergoes hemodialysis. When he was evaluated in the emergency department, he had a brief cardiopulmonary arrest and was intubated. He was subsequently transferred to [facility] and at that time had a blood pressure of 52/25. The patient remained on the ventilator up until 04/12/17. During the workup, blood cultures were obtained and four bottles drawn on 04/11 had coagulase-negative staph. Currently the patient is awake. He is undergoing hemodialysis. He does not verbalize to me but his at bedside states that he does try to speak but he is weak. T-max was 102.4 degrees on 04/11 and the white count was 11.9 on 04/11 when the blood cultures were taken. Today's white count is 17.4. Urine culture taken on 04/12 has no growth. Sputum culture has normal geronimo. The patient has an AV fistula in the right upper extremity which is used for dialysis. PAST MEDICAL HISTORY: 1. Hypertension. 2. Diabetes mellitus. 3. Coronary artery disease. 4. Dyslipidemia. 5. End-stage renal disease. 6. Benign prostate hypertrophy. 7. History of left renal cell carcinoma. 8. Splenectomy. 9. Appendectomy. ALLERGIES: NO KNOWN DRUG ALLERGIES. MEDICATIONS: 1. Vancomycin given periodically. 2. Proscar. 3. Flomax. 4. Lipitor. 5. Clarissa-Colace. 6. Neurontin. 7. Lasix. 8. Hydralazine. SOCIAL HISTORY: The patient is . No tobacco. No alcohol. No illicit drugs. FAMILY HISTORY: Noncontributory. REVIEW OF SYSTEMS: Unable to fully assess in this patient as he is not communicating. PHYSICAL EXAMINATION: GENERAL: This is a well-developed male who is in no acute distress. He is undergoing dialysis currently. VITAL SIGNS: The vital signs include a temperature of 97.6, blood pressure 152/72. HEAD, EYES, EARS, NOSE, THROAT: The sclerae are nonicteric. The oropharynx has moist mucosa. No visible lesions. NECK: No adenopathy or swelling. LUNGS: Decreased breath sounds. HEART: Irregular. S1 and S2. No audible murmur. ABDOMEN: Bowel sounds present, soft, no tenderness appreciated. RECTAL: Not performed. EXTREMITIES: No clubbing, cyanosis or edema. AV fistula at the right upper extremity appears intact. NEUROLOGIC: Unable to fully assess. PSYCHIATRIC: Unable to fully assess. LABS: WBCs 17.4, platelets 424,000, hemoglobin 7.9. Creatinine 5.49, BUN 79, sodium 138. IMPRESSION: 1. Coagulase-negative Staph bacteremia. The patient also developed fever and leukocytosis and had episode of cardiopulmonary arrest. 2. End-stage renal disease on hemodialysis. At this point, the only real source of the bacteremia I suspect is probably external entry via dialysis AV fistula access for dialysis treatments. RECOMMENDATIONS: 1. Continue periodic Vancomycin with dialysis. 2. Repeat the blood cultures to check for clearance of the bacteremia. 3. Continue to monitor the white blood cell count. Thank you for this consultation. The patient's progress will be monitored and further recommendations will be made on followup if necessary. Amor Elam MD FD/NIKITA /4:35 PM /4:48 PM MTDElvin
[2017-04-13] MEDS: ATORVASTATIN 10 MG TAB PO SCH (20:30)
[2017-04-13] MEDS: hydrALAZINE HCL 20 MG/ML VIAL IV PUSH PRN (22:58)
[2017-04-13] MEDS: RESP: ALBUTEROL 2.5 MG/IPRATROPIUM 0.5 MG NEB (PRN) INH (23:03)
--- NOTE | 2017-04-13 23:15 | RADRPT ---
EXAM DATE/TIME: 04/13/2017 22:55 [facility] COMPARISON: CHEST SINGLE AP, April 12, 2017, 5:09. INDICATIONS : Shortness of breath, evaluate for pneumothorax MEDICAL HISTORY : Hypertension. Stage III renal failure SURGICAL HISTORY : None. ENCOUNTER: Subsequent ACUITY: 4 - 6 days PAIN SCORE: Non-responsive. LOCATION: Bilateral chest FINDINGS: 2 frontal views of the chest show improvement in the bibasilar infiltrates. Bibasilar infiltrates do persist. No effusions. Heart enlarged. Aorta is calcified and tortuous. A scoliotic and degenerative spine. CONCLUSION: Improvement in the bibasilar pulmonary infiltrates. Darwin Tsai Jr., MD on April 13, 2017 at 23:12 Board Certified Radiologist. This report was verified electronically.
[2017-04-14] VITALS (14 sets, daily range): BP systolic 146–176; BP diastolic 65–77; PULSE 67–98; RESP 16–20; TEMP 97.7–98.2; O2SAT 93–99
[2017-04-14] MEDS: CHLORHEXIDINE GLUCONATE 2 % 1 PACK (2 CLOTHS) TOP SCH (04:00)
[2017-04-14 05:18] LABS: BASOPHIL # 0.1 TH/MM3 (0-0.2); BASOPHIL % 0.3 % (0.0-2.0); EOSINOPHIL % 0.1 % (0.0-4.0); HEMATOCRIT 25.6 % (39.0-51.0); HEMOGLOBIN 8.5 GM/DL (13.0-17.0); LYMPH % 4.1 % (9.0-44.0); LYMPHOCYTE # 0.7 TH/MM3 (1.0-4.8); MEAN CELL VOLUME 97.9 FL (80.0-100.0); MEAN CORPUSCULAR HEMOGLOBIN 32.6 PG (27.0-34.0); MEAN CORPUSCULAR HGB CONC 33.2 % (32.0-36.0); MEAN PLATELET VOLUME 7.9 FL (7.0-11.0); MONO % 4.8 % (0.0-8.0); MONOCYTE # 0.8 TH/MM3 (0-0.9); NEUT % 90.7 % (16.0-70.0); PLATELET COUNT 425 TH/MM3 (150-450); RED BLOOD COUNT 2.61 MIL/MM3 (4.50-5.90); RED CELL DISTRIBUTION WIDTH 14.5 % (11.6-17.2); WHITE BLOOD COUNT 16.6 TH/MM3 (4.0-11.0)
[2017-04-14 05:58] LABS: ALBUMIN 2.2 GM/DL (3.4-5.0); ALKALINE PHOSPHATASE 233 U/L (45-117); ALT (GPT) 25 U/L (12-78); AST (GOT) 25 U/L (15-37); BICARBONATE 27.3 MEQ/L (21.0-32.0); BLOOD UREA NITROGEN 56 MG/DL (7-18); CALCIUM 10.3 MG/DL (8.5-10.1); CHLORIDE 99 MEQ/L (98-107); CREATININE 3.87 MG/DL (0.60-1.30); GLOMERULAR FILTRATION RATE 15 ML/MIN (>89); GLUCOSE,RANDOM 121 MG/DL (74-106); SODIUM (NA) 140 MEQ/L (136-145); TOTAL BILIRUBIN ADULT 1.4 MG/DL (0.2-1.0); TOTAL PROTEIN 6.5 GM/DL (6.4-8.2)
--- NOTE | 2017-04-14 06:11 | RADRPT ---
EXAM DATE/TIME: 04/14/2017 05:26 [facility] COMPARISON: CHEST SINGLE AP, April 13, 2017, 22:55. INDICATIONS : Shortness of breath MEDICAL HISTORY : Hypertension. Stage III renal failure SURGICAL HISTORY : None. ENCOUNTER: Subsequent ACUITY: 4 - 6 days PAIN SCORE: Non-responsive. LOCATION: Bilateral chest FINDINGS: A single portable frontal view the chest shows no significant change. Bibasilar consolidations are ag ain noted more pronounced on the right. No discrete effusions. Heart is mildly enlarged. Aorta is otto cified and tortuous. A degenerative and scoliotic spine. CONCLUSION: Unchanged bibasilar consolidations and cardiomegaly. Darwin Tsai Jr., MD on April 14, 2017 at 6:09 Board Certified Radiologist. This report was verified electronically.
[2017-04-14 07:13] LABS: BANDS 5 % (0-6); CORRECTED NUCLEATED RBC 8 /100 WBC (0-0); LYMPHOCYTES 2 % (9-44); METAMYELOCYTES 1 % (0-1); MONOCYTES 4 % (0-8); NEUTROPHIL # MANUAL DIFF 15.6 TH/MM3 (1.8-7.7); NUCLEATED RED BLOOD CELL 8 (0-0); POLYS (SEG NEUTROPHILS) 88 % (16-70)
[2017-04-14 07:14] LABS: ACANTHOCYTES OCC (NORMAL); HOWELL-JOLLY BODIES PRESENT (NONE SEEN)
[2017-04-14] MEDS: CHLORHEXIDINE 0.12% (ORAL KIT) 15 ML CUP MT SCH ×2 (08:00→20:00)
[2017-04-14] MEDS: FUROSEMIDE 40 MG TAB PO SCH ×2 (08:44→18:00)
[2017-04-14] MEDS: SODIUM CHLORIDE 0.9% FLUSH 10 ML FLUSH IV FLUSH SCH ×2 (08:44→20:46)
[2017-04-14] MEDS: PANTOPRAZOLE SODIUM 40 MG VIAL IV PUSH SCH ×2 (08:44→20:46)
[2017-04-14] MEDS: PIPERACIL-TAZO 2.25 GM PREMIX 50 ML IV SCH ×2 (08:44→20:46)
[2017-04-14] MEDS: hydrALAZINE HCL 25 MG TAB PO SCH ×3 (08:44→18:00)
[2017-04-14] MEDS: TAMSULOSIN HCL 0.4 MG CAP PO SCH (08:44)
[2017-04-14] MEDS: FINASTERIDE 5 MG TAB PO SCH (08:45)
[2017-04-14] MEDS: GABAPENTIN 100 MG CAP PO SCH ×3 (08:45→18:00)
[2017-04-14] MEDS: DOCUSATE SODIUM 50 MG/SENNA 8.6 MG TAB PO SCH ×2 (08:45→20:47)
--- NOTE | 2017-04-14 11:14 | RADRPT ---
EXAM DATE/TIME: 04/14/2017 10:28 [facility] COMPARISON: No previous studies available for comparison. INDICATIONS : Left arm swelling. MEDICAL HISTORY : Hypercholesterolemia. HTN. Afib. Hard of hearing. Gastritis. GERD. Renal disease and failure. Scoli osis. Diabetes. Anticoagulant therapy, Heparin & Warfarin. SURGICAL HISTORY : Splenectomy. Appendectomy. Bilateral cataract surgery. Left peritoneal dialysis and hemodialysis. L eft hernia repair. Right forearm plate. Right rotator cuff repair. AV fistula. Blood transfusions. ENCOUNTER: Initial ACUITY: 1 day PAIN SCORE: 0/10 LOCATION: Left arm. FINDINGS: There is spontaneous flow documented in the brachial, basilic, axillary, and subclavian veins. There is however thrombus within distal cephalic vein. CONCLUSION: Thrombus is identified within distal cephalic vein. Scottie Donovan MD on April 14, 2017 at 11:11 Board Certified Radiologist. This report was verified electronically.
[2017-04-14] MEDS: hydrALAZINE HCL 20 MG/ML VIAL IV PUSH PRN ×2 (11:20→21:32)
[2017-04-14] MEDS: MORPHINE SULFATE 2 MG/ML INJ IV PUSH PRN (12:00)
--- NOTE | 2017-04-14 12:28 | HHI.IDPN ---
Note Infectious Disease Note Patient is awake but confused. Afebrile. No distress. WBC elevated. 76-year-old white male who was admitted to the hospital on 04/10 with epistaxis. The patient has end-stage renal disease and undergoes hemodialysis. When he was evaluated in the emergency department, he had a brief cardiopulmonary arrest and was intubated. PAST MEDICAL HISTORY: 1. Hypertension. 2. Diabetes mellitus. 3. Coronary artery disease. 4. Dyslipidemia. 5. End-stage renal disease. 6. Benign prostate hypertrophy. 7. History of left renal cell carcinoma. 8. Splenectomy. 9. Appendectomy. ALLERGIES: NO KNOWN DRUG ALLERGIES. ANTIBIOTICS: Vancomycin given periodically. OBJECTIVE: Vital Signs Date Time Temp Pulse Resp B/P (MAP) Pulse Ox O2 Delivery O2 Flow Rate FiO2 04/14/17 12:00 98 04/14/17 12:00 97.7 98 18 156/70 (98) 95 04/14/17 10:00 86 04/14/17 08:21 97 Nasal Cannula 2.00 04/14/17 08:00 79 04/14/17 08:00 97.9 80 16 167/77 (107) 98 04/14/17 07:00 99 Nasal Cannula 4.00 04/14/17 06:00 87 04/14/17 04:00 97.7 84 20 156/71 (99) 99 04/14/17 04:00 84 04/14/17 02:00 92 04/14/17 00:00 67 04/14/17 00:00 97.8 67 18 146/67 (93) 98 04/13/17 22:00 79 04/13/17 20:31 20 04/13/17 20:00 97.8 94 20 182/78 (112) 99 04/13/17 20:00 94 04/13/17 19:00 100 Nasal Cannula 4.00 04/13/17 18:00 62 04/13/17 16:00 56 04/13/17 16:00 98.0 56 17 145/65 (91) 99 04/13/17 14:00 70 Laboratory Tests Test 04/13/17 05:50 04/14/17 04:45 White Blood Count 17.4 TH/MM3 16.6 TH/MM3 Red Blood Count 2.48 MIL/MM3 2.61 MIL/MM3 Hemoglobin 7.9 GM/DL 8.5 GM/DL Hematocrit 24.4 % 25.6 % Mean Corpuscular Volume 98.3 FL 97.9 FL Mean Corpuscular Hemoglobin 31.9 PG 32.6 PG Mean Corpuscular Hemoglobin Concent 32.4 % 33.2 % Red Cell Distribution Width 15.1 % 14.5 % Platelet Count 424 TH/MM3 425 TH/MM3 Mean Platelet Volume 8.2 FL 7.9 FL Neutrophils (%) (Auto) 90.7 % Lymphocytes (%) (Auto) 4.1 % Monocytes (%) (Auto) 4.8 % Eosinophils (%) (Auto) 0.1 % Basophils (%) (Auto) 0.3 % Neutrophils # (Auto) 15.0 TH/MM3 Lymphocytes # (Auto) 0.7 TH/MM3 Monocytes # (Auto) 0.8 TH/MM3 Eosinophils # (Auto) 0.0 TH/MM3 Basophils # (Auto) 0.1 TH/MM3 CBC Comment AUTO DIFF Differential Total Cells Counted 100 Neutrophils % (Manual) 88 % Band Neutrophils % 5 % Lymphocytes % 2 % Monocytes % 4 % Neutrophils # (Manual) 15.6 TH/MM3 Metamyelocytes 1 % Nucleated Red Blood Cells 8 /100 WBC Differential Comment FINAL DIFF MANUAL Platelet Estimate NORMAL Platelet Morphology Comment NORMAL Garcia-Weidman Bodies PRESENT Acanthocytes OCC Laboratory Tests Test 04/13/17 05:50 04/14/17 04:45 Blood Urea Nitrogen 79 MG/DL 56 MG/DL Creatinine 5.49 MG/DL 3.87 MG/DL Random Glucose 176 MG/DL 121 MG/DL Albumin 2.0 GM/DL 2.2 GM/DL Calcium Level 9.5 MG/DL 10.3 MG/DL Phosphorus Level 6.5 MG/DL Sodium Level 138 MEQ/L 140 MEQ/L Potassium Level 4.9 MEQ/L 3.9 MEQ/L Chloride Level 101 MEQ/L 99 MEQ/L Carbon Dioxide Level 22.3 MEQ/L 27.3 MEQ/L Anion Gap 15 MEQ/L 14 MEQ/L Estimat Glomerular Filtration Rate 10 ML/MIN 15 ML/MIN Total Protein 6.5 GM/DL Alkaline Phosphatase 233 U/L Aspartate Amino Transf (AST/SGOT) 25 U/L Alanine Aminotransferase (ALT/SGPT) 25 U/L Total Bilirubin 1.4 MG/DL Microbiology Date/Time Source Procedure Growth Status 04/14/17 09:38 Blood Peripheral Aerobic Blood Culture Pending Received 04/14/17 09:38 Blood Peripheral Anaerobic Blood Culture Pending Received 04/13/17 17:10 Blood Peripheral Aerobic Blood Culture - Preliminary NO GROWTH IN 1 DAY Resulted 04/13/17 17:10 Blood Peripheral Anaerobic Blood Culture - Preliminary NO GROWTH IN 1 DAY Resulted 04/11/17 20:15 Blood Peripheral Aerobic Blood Culture - Final Staph Sp Coagulase Negative Complete 04/11/17 20:15 Anaerobic Blood Culture - Final Staphylococcus Epidermidis Complete 04/11/17 20:10 Blood Peripheral Aerobic Blood Culture - Final Staph Sp Coagulase Negative Complete 04/11/17 20:10 Anaerobic Blood Culture - Final Staphylococcus Epidermidis Complete 04/11/17 20:10 Sputum Endotracheal Gram Stain - Final Complete 04/11/17 20:10 Sputum Endotracheal Sputum Culture - Final HEAVY GROWTH NORMAL RESPIRATORY ARABELLA Complete 04/12/17 05:58 Urine Catheterized Urine Urine Culture - Final NO GROWTH IN 48 HOURS. Complete PHYSICAL EXAMINATION: GENERAL: No acute distress. HEAD, EYES, EARS, NOSE, THROAT: The sclerae are nonicteric. Mucosa is dry. No visible lesions. NECK: No adenopathy or swelling. LUNGS: Decreased breath sounds. HEART: Irregular. S1 and S2. No audible murmur. ABDOMEN: Bowel sounds present, soft, no tenderness. EXTREMITIES: No clubbing, cyanosis or edema. AV fistula at the right upper extremity appears intact. NEUROLOGIC: Non focal. PSYCHIATRIC: Calm. IMPRESSION: 1. Coagulase-negative Staph bacteremia. Patient developed fever and leukocytosis and had episode of cardiopulmonary arrest. 2. End-stage renal disease on hemodialysis. RECOMMENDATIONS: 1. Continue periodic Vancomycin with dialysis. 2. Repeat the blood cultures to check for clearance of the bacteremia. 3. Continue to monitor the white blood cell count. Trell Simon MD Apr 14, 2017 12:28
--- NOTE | 2017-04-14 14:58 | HHI.CCPN ---
Subjective Remarks/Hospital Course 76 y/o man developed a persistent nose bleed this morning after dialysis. In ED his INR was > 13 and he received Kcentra for warfarin reversal (permanent a-fib) . Due to airway problems from blood and hypovolemia he sustained a brief cardiopulmonary arrest in the [facility] ED requiring intubation and ventilation. He was aggressively resuscitated by the staff at [facility] and transferred to [facility] for ongoing resuscitation. He arrived to the [facility] with BP 52/25 and pulse rate 44. Two units of type specific blood were administered and levophed initiated at 20 mics/min. A central line was placed revealing CVP < 5 while on positive pressure ventilation. Resuscitation is continuing. 04/11/17: Currently epistaxis is controlled. Patient is off Levophed, hypertensive. PRN hydralazine added. Patient continues to have coffee-ground output from the NG tube large amount. INR is 2.8 have added FFP 2 units and vitamin K stat. Repeat CBC and INR stat 04/12/17: Remains intubated but wakes up easily follows commands. Left upper extremity weaker. INR was 3.3 yesterday received 2 units FFP and vitamin K repeat INR pending. No further epistaxis and NGT output minimal 04/13/17: Extubated yesterday tolerating well. Blood cultures 4 out of 4 bottles positive for coag negative staph. ID consulted 2-D echo ordered. No further epistaxis reported. refused EGD 04/14/17: Protecting airway. Overnight jet inspector was called for stridor- appear to be upper airway conducted sounds. Intermittent confusion, but on my exam AOx3 Objective Vital Signs Date Time Temp Pulse Resp B/P (MAP) Pulse Ox O2 Delivery O2 Flow Rate FiO2 04/14/17 14:00 74 04/14/17 12:00 97.7 18 156/70 (98) 95 04/14/17 08:21 Nasal Cannula 2.00 04/12/17 12:00 40 Intake and Output 04/14/17 04/14/17 04/15/17 08:00 16:00 00:00 Output Total 0 ml Balance 0 ml Result Diagram: 04/14/17 0445 04/14/17 0445 Other Results Microbiology Date/Time Source Procedure Growth Status 04/11/17 20:15 Blood Peripheral Aerobic Blood Culture - Final Staph Sp Coagulase Negative Complete 04/11/17 20:15 Anaerobic Blood Culture - Final Staphylococcus Epidermidis Complete 04/11/17 20:10 Blood Peripheral Aerobic Blood Culture - Final Staph Sp Coagulase Negative Complete 04/11/17 20:10 Anaerobic Blood Culture - Final Staphylococcus Epidermidis Complete 04/11/17 20:10 Sputum Endotracheal Gram Stain - Final Complete 04/11/17 20:10 Sputum Endotracheal Sputum Culture - Final HEAVY GROWTH NORMAL RESPIRATORY ARABELLA Complete 04/12/17 05:58 Urine Catheterized Urine Urine Culture - Final NO GROWTH IN 48 HOURS. Complete Objective Remarks Gen: Ill-appearing, pale, elderly man, on NC Head: Blood in nares now dried up, no active bleeding ENT: Extubated airway widely patent Neck: Supple, no JVD. Conducted upper airway sounds Lungs: Chest bilaterally. Coarse rhonchi cleared with coughing Heart: Irreg Irreg, 3/6 THIERRY, LSB. Neck veins not distended. Abdomen: Nondistended, quiet. No guarding. Multiple well-healed surgical scars Extremities: Cold. Pale. Neuro: Patient is awake alert Ox3. intermittently confused. Generalized weakness A/P Assessment and Plan Assessment: Coag negative staph bacteremia/sepsis Hypovolemic shock-resolved Coagulopathy, Coumadin. Bradycardia. Respiratory Failure-resolved Acute blood loss anemia. Epistaxis-resolved Upper GIB ESRD. LUE weakness most likely is local weakness secondary to severe arthritis Plan: Neuro: - CT head to r/o stroke-negative for acute findings - Weakness of her left upper extremity most likely related to arthritis and rotator cuff tendinitis Respiratory - Extubated 1/2 tolerating well - Continue with aggressive pulmonary toilet, EzPAP, ACapella CV - Transfuse to Hgb > 7.0 - Hydralazine PRN for hypertension GI - No further upper GI bleed, patient's refused any GI procedures - Reverse coagulopathy with K Centra and DDAVP. s/p 2U FFP and vitamin K 04/11/17 - Protonix. - Monitor UO. ESRD on HD, getting hemodialysis today - Renal - Dr. Maria - Follow lytes closely Heme - Received Kcentra and DDAVP - Transfuse 2 units FFP and 10 mg vitamin K 04/11/17 - L cephalic vein thrombus. Hold off anticoagulation due to life threatening hemorrhage ID: - 4 out of 4 bottles staph epi bacteremia-source probably dialysis access - Check 2-D echo. ID consult appreciated - Continue IV vancomycin, repeat cultures Lines - Left SCV CVL 04/10-DCd Level 3 Continue ICU care due to intermittent confusion and questionable airway protection. Aggressive PT Den Aguilera MD Apr 14, 2017 14:58
--- NOTE | 2017-04-14 18:19 | HHI.NPPN ---
Subjective History of Present Illness 76-year-old male with a history of end-stage renal disease on maintenance hemodialysis generally Tuesday and Tuesday however he was dialyzed last Tuesday secondary to the holiday. Subsequently developed epistaxis and presented to the emergency room with hypotension and his INR was said to be greater than 13. Patient was on Coumadin apparently for atrial fibrillation. According to the records patient subsequently required cardiopulmonary resuscitation and was intubated and remains on ventilatory support. Patient appears to be alert and nodding to questions. Nasal pack in place on left side. Interval History Patient with no verbal complaints today. Objective Data Data Vital Signs Date Time Temp Pulse Resp B/P (MAP) Pulse Ox O2 Delivery O2 Flow Rate FiO2 04/14/17 16:00 98.2 78 18 150/65 (93) 95 04/14/17 16:00 78 04/14/17 14:00 74 04/14/17 12:00 98 04/14/17 12:00 97.7 98 18 156/70 (98) 95 04/14/17 10:00 86 04/14/17 08:21 97 Nasal Cannula 2.00 04/14/17 08:00 79 04/14/17 08:00 97.9 80 16 167/77 (107) 98 04/14/17 07:00 99 Nasal Cannula 4.00 04/14/17 06:00 87 04/14/17 04:00 97.7 84 20 156/71 (99) 99 04/14/17 04:00 84 04/14/17 02:00 92 04/14/17 00:00 67 04/14/17 00:00 97.8 67 18 146/67 (93) 98 04/13/17 22:00 79 04/13/17 20:31 20 04/13/17 20:00 97.8 94 20 182/78 (112) 99 04/13/17 20:00 94 04/13/17 19:00 100 Nasal Cannula 4.00 -: 04/14/17 0445 04/14/17 0445 Microbiology 04/14/17 Aerobic Blood Culture, Received Pending 04/14/17 Anaerobic Blood Culture, Received Pending Physical Exam General Appearance: Comfortable Pulmonary Resp Exam: Breath Sounds Equal, Rhonchi (bilaterally.) Cardiology CV Exam: Regular, Normal Sinus Rhythm Gastrointestinal/Abdomen GI Exam: Soft, Non-Tender Integumentary Skin Exam: Clear, Warm Extremeties Extremities Exam: Moderate Edema, Pitting Edema (2+ pitting edema involving upper thighs hips presacral area.), Dependent Edema Neurologic Neuro Exam: Alert, Awake, Moving All Extremities Assessment/Plan Discussed Condition With: Patient Problem List: (1) ESRD (end stage renal disease) on dialysis ICD Codes: N18.6 - End stage renal disease; Z99.2 - Dependence on renal dialysis Status: Chronic Plan: Patient still has significant fluid retention. Patient to have hemodialysis tomorrow and subsequently the day after with an ultrafiltration goal of approximately 3.5 kg tolerated each session. (2) Hypercalcemia associated with chronic dialysis ICD Codes: E83.52 - Hypercalcemia Status: Chronic Plan: Patient has a history of previous hypercalcemia which was evaluated for and no specific etiology determined. He was on a 2.0 calcium bath as an outpatient. I will resume same in house as ordered if available. (3) Anemia of renal disease ICD Codes: D63.1 - Anemia in chronic kidney disease Status: Chronic Plan: Patient noted to have low iron stores however blood cultures said to be positive for staph epi. Await evaluation by infectious disease. Defer parental iron therapy until clarification obtained as to whether not the patient has an active infection. Continue with Epo with HD (4) Epistaxis ICD Codes: R04.0 - Epistaxis Status: Acute (5) Coumadin toxicity ICD Codes: T45.511A - Poisoning by anticoagulants, accidental (unintentional), initial encounter Status: Acute Plan: Defer anticoagulation management to primary care physician. (6) HTN (hypertension) ICD Codes: I10 - Essential (primary) hypertension Status: Chronic Danita Maria MD Apr 14, 2017 18:19
[2017-04-14] MEDS: ATORVASTATIN 10 MG TAB PO SCH (20:46)
[2017-04-15] VITALS (14 sets, daily range): BP systolic 156–186; BP diastolic 70–87; PULSE 67–94; RESP 15–25; TEMP 97.3–98.6; O2SAT 95–99
[2017-04-15] MEDS: CHLORHEXIDINE GLUCONATE 2 % 1 PACK (2 CLOTHS) TOP SCH (04:00)
[2017-04-15] MEDS: hydrALAZINE HCL 20 MG/ML VIAL IV PUSH PRN ×4 (04:53→21:25)
[2017-04-15] MEDS: CHLORHEXIDINE 0.12% (ORAL KIT) 15 ML CUP MT SCH ×2 (08:00→20:00)
[2017-04-15] MEDS: FINASTERIDE 5 MG TAB PO SCH (08:41)
[2017-04-15] MEDS: TAMSULOSIN HCL 0.4 MG CAP PO SCH (08:41)
[2017-04-15] MEDS: hydrALAZINE HCL 25 MG TAB PO SCH ×3 (08:41→17:24)
[2017-04-15] MEDS: GABAPENTIN 100 MG CAP PO SCH ×3 (08:41→17:24)
[2017-04-15] MEDS: DOCUSATE SODIUM 50 MG/SENNA 8.6 MG TAB PO SCH ×2 (08:41→21:00)
[2017-04-15] MEDS: FUROSEMIDE 40 MG TAB PO SCH ×2 (08:41→17:24)
[2017-04-15] MEDS: PANTOPRAZOLE SODIUM 40 MG VIAL IV PUSH SCH ×2 (08:52→19:36)
[2017-04-15] MEDS: PIPERACIL-TAZO 2.25 GM PREMIX 50 ML IV SCH ×2 (08:52→19:36)
[2017-04-15] MEDS: SODIUM CHLORIDE 0.9% FLUSH 10 ML FLUSH IV FLUSH SCH ×2 (08:53→19:36)
[2017-04-15] MEDS: RESP: ALBUTEROL 2.5 MG/IPRATROPIUM 0.5 MG NEB (PRN) INH (08:57)
[2017-04-15] MEDS: MORPHINE SULFATE 2 MG/ML INJ IV PUSH PRN ×3 (09:00→22:40)
[2017-04-15 12:03] LABS: HEMATOCRIT 27.4 % (39.0-51.0); HEMOGLOBIN 8.9 GM/DL (13.0-17.0); MEAN CELL VOLUME 99.1 FL (80.0-100.0); MEAN CORPUSCULAR HEMOGLOBIN 32.2 PG (27.0-34.0); MEAN CORPUSCULAR HGB CONC 32.5 % (32.0-36.0); MEAN PLATELET VOLUME 7.9 FL (7.0-11.0); PLATELET COUNT 505 TH/MM3 (150-450); RED BLOOD COUNT 2.77 MIL/MM3 (4.50-5.90); RED CELL DISTRIBUTION WIDTH 15.3 % (11.6-17.2); WHITE BLOOD COUNT 20.9 TH/MM3 (4.0-11.0)
[2017-04-15 12:32] LABS: ALBUMIN 2.3 GM/DL (3.4-5.0); ALKALINE PHOSPHATASE 234 U/L (45-117); ALT (GPT) 20 U/L (12-78); AST (GOT) 15 U/L (15-37); BICARBONATE 26.3 MEQ/L (21.0-32.0); BLOOD UREA NITROGEN 82 MG/DL (7-18); CALCIUM 10.6 MG/DL (8.5-10.1); CHLORIDE 99 MEQ/L (98-107); CREATININE 5.62 MG/DL (0.60-1.30); GLOMERULAR FILTRATION RATE 10 ML/MIN (>89); GLUCOSE,RANDOM 129 MG/DL (74-106); MAGNESIUM 2.9 MG/DL (1.5-2.5); PHOSPHORUS 6.9 MG/DL (2.5-4.9); SODIUM (NA) 141 MEQ/L (136-145); TOTAL BILIRUBIN ADULT 1.2 MG/DL (0.2-1.0); TOTAL PROTEIN 6.9 GM/DL (6.4-8.2)
--- NOTE | 2017-04-15 13:13 | HHI.IDPN ---
Note Infectious Disease Note Patient is somnolent. Afebrile. No distress. WBC remain elevated. 76-year-old white male who was admitted to the hospital on 04/10 with epistaxis. The patient has end-stage renal disease and undergoes hemodialysis. When he was evaluated in the emergency department, he had a brief cardiopulmonary arrest and was intubated. PAST MEDICAL HISTORY: 1. Hypertension. 2. Diabetes mellitus. 3. Coronary artery disease. 4. Dyslipidemia. 5. End-stage renal disease. 6. Benign prostate hypertrophy. 7. History of left renal cell carcinoma. 8. Splenectomy. 9. Appendectomy. ALLERGIES: NO KNOWN DRUG ALLERGIES. ANTIBIOTICS: Vancomycin with dialysis. OBJECTIVE: Vital Signs Date Time Temp Pulse Resp B/P (MAP) Pulse Ox O2 Delivery O2 Flow Rate FiO2 04/15/17 12:00 86 04/15/17 12:00 97.8 86 24 174/78 (110) 98 04/15/17 10:00 92 04/15/17 09:19 18 04/15/17 08:58 95 Nasal Cannula 4.00 04/15/17 08:00 97.6 72 24 186/82 (116) 99 04/15/17 08:00 87 04/15/17 07:00 98 Nasal Cannula 4.00 04/15/17 06:00 80 04/15/17 04:00 98.6 80 16 183/79 (113) 98 04/15/17 04:00 80 04/15/17 02:00 74 04/15/17 00:00 76 04/15/17 00:00 97.8 76 15 156/70 (98) 97 04/14/17 22:00 84 04/14/17 20:27 93 04/14/17 20:00 97.7 85 18 176/77 (110) 96 04/14/17 20:00 89 04/14/17 19:00 96 Nasal Cannula 4.00 04/14/17 18:00 89 04/14/17 16:00 98.2 78 18 150/65 (93) 95 04/14/17 16:00 78 04/14/17 14:00 74 Laboratory Tests Test 04/14/17 04:45 04/15/17 11:10 White Blood Count 16.6 TH/MM3 20.9 TH/MM3 Red Blood Count 2.61 MIL/MM3 2.77 MIL/MM3 Hemoglobin 8.5 GM/DL 8.9 GM/DL Hematocrit 25.6 % 27.4 % Mean Corpuscular Volume 97.9 FL 99.1 FL Mean Corpuscular Hemoglobin 32.6 PG 32.2 PG Mean Corpuscular Hemoglobin Concent 33.2 % 32.5 % Red Cell Distribution Width 14.5 % 15.3 % Platelet Count 425 TH/MM3 505 TH/MM3 Mean Platelet Volume 7.9 FL 7.9 FL Neutrophils (%) (Auto) 90.7 % Lymphocytes (%) (Auto) 4.1 % Monocytes (%) (Auto) 4.8 % Eosinophils (%) (Auto) 0.1 % Basophils (%) (Auto) 0.3 % Neutrophils # (Auto) 15.0 TH/MM3 Lymphocytes # (Auto) 0.7 TH/MM3 Monocytes # (Auto) 0.8 TH/MM3 Eosinophils # (Auto) 0.0 TH/MM3 Basophils # (Auto) 0.1 TH/MM3 CBC Comment AUTO DIFF Differential Total Cells Counted 100 Neutrophils % (Manual) 88 % Band Neutrophils % 5 % Lymphocytes % 2 % Monocytes % 4 % Neutrophils # (Manual) 15.6 TH/MM3 Metamyelocytes 1 % Nucleated Red Blood Cells 8 /100 WBC Differential Comment FINAL DIFF MANUAL Platelet Estimate NORMAL Platelet Morphology Comment NORMAL Garcia-Meno Bodies PRESENT Acanthocytes OCC Laboratory Tests Test 04/14/17 04:45 04/15/17 11:10 Blood Urea Nitrogen 56 MG/DL 82 MG/DL Creatinine 3.87 MG/DL 5.62 MG/DL Random Glucose 121 MG/DL 129 MG/DL Total Protein 6.5 GM/DL 6.9 GM/DL Albumin 2.2 GM/DL 2.3 GM/DL Calcium Level 10.3 MG/DL 10.6 MG/DL Alkaline Phosphatase 233 U/L 234 U/L Aspartate Amino Transf (AST/SGOT) 25 U/L 15 U/L Alanine Aminotransferase (ALT/SGPT) 25 U/L 20 U/L Total Bilirubin 1.4 MG/DL 1.2 MG/DL Sodium Level 140 MEQ/L 141 MEQ/L Potassium Level 3.9 MEQ/L 4.0 MEQ/L Chloride Level 99 MEQ/L 99 MEQ/L Carbon Dioxide Level 27.3 MEQ/L 26.3 MEQ/L Anion Gap 14 MEQ/L 16 MEQ/L Estimat Glomerular Filtration Rate 15 ML/MIN 10 ML/MIN Phosphorus Level 6.9 MG/DL Magnesium Level 2.9 MG/DL Microbiology Date/Time Source Procedure Growth Status 04/14/17 09:38 Blood Peripheral Aerobic Blood Culture - Preliminary NO GROWTH IN 1 DAY Resulted 04/14/17 09:38 Blood Peripheral Anaerobic Blood Culture - Preliminary NO GROWTH IN 1 DAY Resulted 04/13/17 17:10 Blood Peripheral Aerobic Blood Culture - Preliminary NO GROWTH IN 2 DAYS Resulted 04/13/17 17:10 Blood Peripheral Anaerobic Blood Culture - Preliminary NO GROWTH IN 2 DAYS Resulted Microbiology Date/Time Source Procedure Growth Status 04/14/17 09:38 Blood Peripheral Aerobic Blood Culture Pending Received 04/14/17 09:38 Blood Peripheral Anaerobic Blood Culture Pending Received 04/13/17 17:10 Blood Peripheral Aerobic Blood Culture - Preliminary NO GROWTH IN 1 DAY Resulted 04/13/17 17:10 Blood Peripheral Anaerobic Blood Culture - Preliminary NO GROWTH IN 1 DAY Resulted 04/11/17 20:15 Blood Peripheral Aerobic Blood Culture - Final Staph Sp Coagulase Negative Complete 04/11/17 20:15 Anaerobic Blood Culture - Final Staphylococcus Epidermidis Complete 04/11/17 20:10 Blood Peripheral Aerobic Blood Culture - Final Staph Sp Coagulase Negative Complete 04/11/17 20:10 Anaerobic Blood Culture - Final Staphylococcus Epidermidis Complete 04/11/17 20:10 Sputum Endotracheal Gram Stain - Final Complete 04/11/17 20:10 Sputum Endotracheal Sputum Culture - Final HEAVY GROWTH NORMAL RESPIRATORY ARABELLA Complete 04/12/17 05:58 Urine Catheterized Urine Urine Culture - Final NO GROWTH IN 48 HOURS. Complete IMAGING: Chest X-Ray 04/14/17 0600 Signed Impressions: Service Date/Time: April 05:26 - CONCLUSION: Unchanged bibasilar consolidations and cardiomegaly. Darwin Tsai Jr., MD Upper Extremity Ultrasound 04/14/17 0000 Signed Impressions: Service Date/Time: April 10:28 - CONCLUSION: Thrombus is identified within distal cephalic vein. Scottie Donovan MD Head CT 04/12/17 0000 Signed Impressions: Service Date/Time: Wednesday, April 12, 2017 16:08 - CONCLUSION: Chronic changes without hemorrhage mass effect. Scottie Donovan MD PHYSICAL EXAMINATION: GENERAL: No acute distress. somnolent. HEAD, EYES, EARS, NOSE, THROAT: The sclerae are nonicteric. Mucosa is dry. No visible lesions. NECK: No adenopathy or swelling. LUNGS: Decreased breath sounds. HEART: Irregular. S1 and S2. No audible murmur. ABDOMEN: Bowel sounds present, soft, no tenderness. EXTREMITIES: No clubbing, cyanosis or edema. AV fistula at the right upper extremity appears intact. NEUROLOGIC: Non focal. PSYCHIATRIC: Calm. IMPRESSION: 1. Coagulase-negative Staph bacteremia. Patient developed fever and leukocytosis and had episode of cardiopulmonary arrest. 2. End-stage renal disease on hemodialysis. 3. Thrombus in distal cephalic LUE. 4. Abnormal CXR ? pneumonia. RECOMMENDATIONS: 1. Continue periodic Vancomycin with dialysis. 2. Follow repeat blood cultures to check for clearance of the bacteremia. 3. Continue Zosyn. 4. Continue to monitor the white blood cell count. 5. Agree with 2D ECHO to evaluate bacteremia. Trell Simon MD Apr 15, 2017 13:13
--- NOTE | 2017-04-15 14:45 | ECHRPT ---
Indication: sepsis poss. endocarditis CONCLUSIONS The left ventricular systolic function is normal with an estimated ejection fraction in the range of 60-65%. Normal left ventricular size. Wall thickness is normal. No regional wall motion abnormalities are present. The right ventriclar size is upper limits of normal. The right atrial size is moderately dilated. Mild mitral annular calcification. Kwgh-tm-shtfepoc mitral valve regurgitation. There is moderate tricuspid regurgitation. There is estimated moderate pulmonary hypertension present (range 50-60 mmHg). The inferior vena cava is dilated. BP: 156 / 71 HR: 84 Rhythm: Sinus Technical Quality:Good FINDINGS LEFT VENTRICLE The left ventricular systolic function is normal with an estimated ejection fraction in the range of 60-65%. Normal left ventricular size. Wall thickness is normal. No regional wall motion abnormalities are present. RIGHT VENTRICLE The right ventriclar size is upper limits of normal. LEFT ATRIUM The left atrial size is normal. RIGHT ATRIUM The right atrial size is moderately dilated. ATRIAL SEPTUM Normal atrial septal thickness without atrial level shunting by limited color doppler interrogation. AORTA The aortic root and proximal ascending aorta are normal in size on limited imaging. MITRAL VALVE Structurally normal mitral valve. Mild mitral annular calcification. Ewkk-oy-eocyzpul mitral valve regurgitation. AORTIC VALVE Trileaflet aortic valve. No aortic valve stenosis or regurgitation. TRICUSPID VALVE Structurally normal tricuspid valve. There is moderate tricuspid regurgitation. There is estimated moderate pulmonary hypertension present (range 50-60 mmHg). PULMONARY VALVE The pulmonary valve is not well visualized. VESSELS The inferior vena cava is dilated. There is less than 50% respiratory change in dimension of the inferior vena cava (abnormal). PERICARDIUM No pericardial effusion. Rl Caceres MD (Electronically Signed) Final Date:15 April 2017 14:44
--- NOTE | 2017-04-15 14:46 | HHI.CCPN ---
Subjective Remarks/Hospital Course 76 y/o man developed a persistent nose bleed this morning after dialysis. In ED his INR was > 13 and he received Kcentra for warfarin reversal (permanent a-fib) . Due to airway problems from blood and hypovolemia he sustained a brief cardiopulmonary arrest in the [place] ED requiring intubation and ventilation. He was aggressively resuscitated by the staff at [facility] and transferred to [facility] for ongoing resuscitation. He arrived to the [facility] with BP 52/25 and pulse rate 44. Two units of type specific blood were administered and levophed initiated at 20 mics/min. A central line was placed revealing CVP < 5 while on positive pressure ventilation. Resuscitation is continuing. 04/11/17: Currently epistaxis is controlled. Patient is off Levophed, hypertensive. PRN hydralazine added. Patient continues to have coffee-ground output from the NG tube large amount. INR is 2.8 have added FFP 2 units and vitamin K stat. Repeat CBC and INR stat 04/12/17: Remains intubated but wakes up easily follows commands. Left upper extremity weaker. INR was 3.3 yesterday received 2 units FFP and vitamin K repeat INR pending. No further epistaxis and NGT output minimal 04/13/17: Extubated yesterday tolerating well. Blood cultures 4 out of 4 bottles positive for coag negative staph. ID consulted 2-D echo ordered. No further epistaxis reported. refused EGD 04/14/17: Protecting airway. 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 Intermittent confusion, but on my exam AOx3 04/15/17: More lethargic today, but wakes up and follows commands. Received morphine 2 mg at 8 AM. Getting hemodialysis today. Will reduce Morphine from 2 to 1 mg. Also WBC count is elevated, to 20.7 Objective Vital Signs Date Time Temp Pulse Resp B/P (MAP) Pulse Ox O2 Delivery O2 Flow Rate FiO2 04/15/17 12:00 86 04/15/17 12:00 97.8 24 174/78 (110) 98 04/15/17 08:58 Nasal Cannula 4.00 04/12/17 12:00 40 Intake and Output 04/15/17 04/15/17 04/16/17 08:00 16:00 00:00 Intake Total 0 ml Output Total 0 ml Balance 0 ml Result Diagram: 04/15/17 1110 04/15/17 1110 Objective Remarks Gen: Ill-appearing, pale, elderly man, on NC. Appears more lethargic today getting hemodialysis Head: Blood in nares now dried up, no active bleeding ENT: Extubated airway widely patent Neck: Supple, no JVD. Conducted upper airway sounds Lungs: Chest bilaterally. Coarse rhonchi cleared with coughing Heart: Irreg Irreg, 3/6 THIERRY, LSB. Neck veins not distended. Abdomen: Nondistended, quiet. No guarding. Multiple well-healed surgical scars Extremities: Cold. Pale. Neuro: Lethargic but wakes up and follows commands. Generalized weakness A/P Assessment and Plan Assessment: Coag negative staph bacteremia/sepsis Metabolic encephalopathy Hypovolemic shock-resolved Coagulopathy, Coumadin. Bradycardia. Respiratory Failure-resolved Acute blood loss anemia. Epistaxis-resolved Upper GIB ESRD. LUE weakness most likely is local weakness secondary to severe arthritis Plan: Neuro: - Metabolic encephalopathy most likely secondary to sepsis - CT head to r/o stroke-negative for acute findings - Weakness of left upper extremity most likely related to arthritis and rotator cuff tendinitis Respiratory - Extubated 1/2 protecting airway - Continue with aggressive pulmonary toilet, EzPAP, ACapella CV - Transfuse to Hgb > 7.0 - Hydralazine scheduled and PRN for hypertension GI - No further upper GI bleed, patient's refused any GI procedures - Reverse coagulopathy with K Centra and DDAVP. s/p 2U FFP and vitamin K 04/11/17 - Protonix. - Monitor UO. ESRD on HD, getting hemodialysis today - Renal - Dr. Maria - Follow lytes closely Heme - Received Kcentra and DDAVP - Transfuse 2 units FFP and 10 mg vitamin K 04/11/17 - L cephalic vein thrombus. Hold off anticoagulation due to life threatening hemorrhage ID: - 4 out of 4 bottles staph epi bacteremia-source probably dialysis access - Check 2-D echo-pending. ID consult appreciated - Continue IV vancomycin, repeat cultures Lines - Left SCV CVL 04/10-DCd Level 3 Continue ICU care due to intermittent confusion and questionable airway protection. More confused today Den Aguilera MD Apr 15, 2017 14:46
--- NOTE | 2017-04-15 15:23 | HHI.NPPN ---
Subjective History of Present Illness 76-year-old male with a history of end-stage renal disease on maintenance hemodialysis generally Tuesday and Tuesday however he was dialyzed last Tuesday secondary to the holiday. Subsequently developed epistaxis and presented to the emergency room with hypotension and his INR was said to be greater than 13. Patient was on Coumadin apparently for atrial fibrillation. According to the records patient subsequently required cardiopulmonary resuscitation and was intubated and remains on ventilatory support. Patient appears to be alert and nodding to questions. Nasal pack in place on left side. Interval History Pt seend during HD. Tolerating UF of 3.5L. Is lethargic as he was given pain medications. Extubated (Isis Herman) Review of Systems General General Remarks Unable to obtain (Isis Herman) Objective Data Data Vital Signs Date Time Temp Pulse Resp B/P (MAP) Pulse Ox O2 Delivery O2 Flow Rate FiO2 04/15/17 12:00 86 04/15/17 12:00 97.8 86 24 174/78 (110) 98 04/15/17 10:00 92 04/15/17 09:19 18 04/15/17 08:58 95 Nasal Cannula 4.00 04/15/17 08:00 97.6 72 24 186/82 (116) 99 04/15/17 08:00 87 04/15/17 07:00 98 Nasal Cannula 4.00 04/15/17 06:00 80 04/15/17 04:00 98.6 80 16 183/79 (113) 98 04/15/17 04:00 80 04/15/17 02:00 74 04/15/17 00:00 76 04/15/17 00:00 97.8 76 15 156/70 (98) 97 04/14/17 22:00 84 04/14/17 20:27 93 04/14/17 20:00 97.7 85 18 176/77 (110) 96 04/14/17 20:00 89 04/14/17 19:00 96 Nasal Cannula 4.00 04/14/17 18:00 89 04/14/17 16:00 98.2 78 18 150/65 (93) 95 04/14/17 16:00 78 (Isis Herman) -: 04/15/17 1110 04/15/17 1110 Imaging Last Impressions Chest X-Ray 04/14/17 0600 Signed Impressions: Service Date/Time: April 05:26 - CONCLUSION: Unchanged bibasilar consolidations and cardiomegaly. Darwin Tsai Jr., MD Upper Extremity Ultrasound 04/14/17 0000 Signed Impressions: Service Date/Time: April 10:28 - CONCLUSION: Thrombus is identified within distal cephalic vein. Scottie Donovan MD Head CT 04/12/17 0000 Signed Impressions: Service Date/Time: Wednesday, April 12, 2017 16:08 - CONCLUSION: Chronic changes without hemorrhage mass effect. Scottie Donovan MD Medication Review Current Medications Medications (Trade) Dose Ordered Sig/Terra Route Start Time Stop Time Status Last Admin (Lipitor) 10 mg HS PO 04/10/17 21:00 04/12/17 21:00 (Proscar) 5 mg DAILY PO 04/11/17 09:00 04/12/17 08:04 (Lasix) 40 mg BID@0900,1800 PO 04/10/17 18:00 04/12/17 08:08 (Neurontin) 100 mg TID PO 04/10/17 18:00 04/12/17 12:31 (Apresoline) 75 mg TID PO 04/10/17 18:00 04/12/17 12:30 (Flomax) 0.4 mg DAILY PO 04/11/17 09:00 04/12/17 08:04 (NS Flush) 2 ml UNSCH PRN IV FLUSH 04/10/17 16:45 (NS Flush) 2 ml BID IV FLUSH 04/10/17 21:00 04/15/17 08:53 (Tylenol) 650 mg Q6H PRN PO 04/10/17 16:45 (Zofran Inj) 4 mg Q6H PRN IV PUSH 04/10/17 16:45 (Duoneb Neb) 1 ampule Q4HR NEB PRN INH 04/10/17 16:45 04/15/17 08:57 Miscellaneous Information 1 Q361D XX 04/10/17 16:45 04/10/17 16:45 (Chlorhexidine 2% Cloth) 3 pack Taper DAILY@04 TOP 04/11/17 04:00 04/07/18 03:59 (Chlorhexidine 2% Cloth) 3 pack UNSCH PRN TOP 04/10/17 16:45 (Clarissa-Colace) 1 tab BID PO 04/10/17 21:00 04/12/17 21:00 (Milk Of Magnesia Liq) 30 ml Q12H PRN PO 04/10/17 16:45 (Senokot) 17.2 mg Q12H PRN PO 04/10/17 16:45 (Dulcolax Supp) 10 mg DAILY PRN RECTAL 04/10/17 16:45 (Lactulose Liq) 30 ml DAILY PRN PO 04/10/17 16:45 (Peridex 0.12% Liq) 15 ml BID@08,20 MT 04/10/17 20:00 04/15/17 08:00 (Brethine Inj) 1 mg UNSCH PRN SQ 04/10/17 17:30 (Tylenol Supp) 650 mg Q6H PRN RECTAL 04/10/17 18:45 04/11/17 18:43 (Apresoline Inj) 20 mg Q4H PRN IV PUSH 04/11/17 13:45 04/15/17 08:53 (Protonix Inj) 40 mg Q12H IV PUSH 04/11/17 21:00 04/15/17 08:52 Piperacillin Sod/ Tazobactam Sod 50 ml @ 100 mls/hr Q12H IV 04/11/17 20:00 04/15/17 08:52 Sodium Chloride 1,000 ml @ 0 mls/hr Q0M PRN OTHER 04/12/17 11:15 04/13/17 17:00 (Heparin Inj) UNSCH PRN IV FLUSH 04/12/17 11:30 Sodium Chloride 1,000 ml @ 200 mls/hr Q5H PRN IV 04/12/17 11:15 Sodium Chloride 1,000 ml @ 0 mls/hr Q0M PRN OTHER 04/12/17 11:15 (Mannitol Inj) 12.5 gm UNSCH PRN IV 04/12/17 11:15 Albumin Human 100 ml @ 60 mls/hr UNSCH PRN IV 04/12/17 11:30 (NS Flush) 5 ml UNSCH PRN IV FLUSH 04/12/17 11:15 (Gentamicin (Dialysis) Inj) 20 mg UNSCH PRN OTHER 04/12/17 11:30 (Zofran Inj) 4 mg UNSCH PRN IV PUSH 04/12/17 11:30 (Tylenol) 650 mg UNSCH PRN PO 04/12/17 11:30 (Benadryl) 25 mg UNSCH PRN PO 04/12/17 11:30 (Nitrostat Sl) 0.4 mg UNSCH PRN SL 04/12/17 11:30 (Catapres) 0.1 mg UNSCH PRN PO 04/12/17 11:30 (Epogen Inj) 10,000 units UNSCH PRN IV PUSH 04/12/17 11:30 04/13/17 17:00 (Gelfoam 12 Mm/7 Mm Top) 1 foam UNSCH PRN TOP 04/12/17 11:30 04/13/17 17:20 Pharmacy Profile Note ml @ 0 mls/hr UNSCH OTHER 04/12/17 17:45 Vancomycin HCl 1250 mg/Sodium Chloride 262.5 ml @ 250 mls/hr ONCE ONCE IV 04/15/17 16:00 04/15/17 17:02 (Morphine Inj) 1 mg Q4H PRN IV PUSH 04/15/17 14:45 (Isis Herman) Physical Exam General Appearance: Comfortable (Isis Herman) Pulmonary Resp Exam: Clear Bilaterally, Breath Sounds Equal (Isis Herman) Cardiology CV Exam: Regular, Normal Sinus Rhythm (Isis Herman) Gastrointestinal/Abdomen GI Exam: Soft, Non-Tender GI Remarks coffee ground discharge from tube (Isis Herman) Integumentary Skin Exam: Clear, Warm (Isis Herman) Extremeties Extremities Exam: Moderate Edema, Pitting Edema (2+ pitting edema involving upper thighs hips presacral area.), Dependent Edema (Isis Herman) Neurologic Neuro Exam: Moving All Extremities (Isis Herman) Assessment/Plan Discussed Condition With: Patient Problem List: (1) ESRD (end stage renal disease) on dialysis ICD Codes: N18.6 - End stage renal disease; Z99.2 - Dependence on renal dialysis Status: Chronic Plan: Pt seen during HD today HD RN able to change to 2.0 calcium bath given his hypercalcemia Will have HD again 04/16/17 for additional ultrafiltration, then to resume MWF Medications should be adjusted for the patient's ESRD. Avoid gadolinium (2) Hypercalcemia associated with chronic dialysis ICD Codes: E83.52 - Hypercalcemia Status: Chronic Plan: Patient has a history of previous hypercalcemia which was evaluated for and no specific etiology determined. 2.0 calcium bath ordered (3) Anemia of renal disease ICD Codes: D63.1 - Anemia in chronic kidney disease Status: Chronic Plan: Patient noted to have low iron stores however blood cultures said to be positive for staph epi. Await evaluation by infectious disease. Defer parental iron therapy until clarification obtained as to whether not the patient has an active infection. Continue with Epo with HD (4) Epistaxis ICD Codes: R04.0 - Epistaxis Status: Acute (5) Coumadin toxicity ICD Codes: T45.511A - Poisoning by anticoagulants, accidental (unintentional), initial encounter Status: Acute Plan: Defer anticoagulation management to primary care physician. (6) HTN (hypertension) ICD Codes: I10 - Essential (primary) hypertension Status: Chronic (Isis Herman) Plan The exam, history, and the medical decision-making described in the above note were completed with the assistance of the LISA. I reviewed and agree with the findings presented. (Danita Maria MD) Isis Herman Apr 15, 2017 15:23 Danita Maria MD Apr 16, 2017 17:05
[2017-04-15] MEDS ORDERED: VANCOMYCIN INJ 1,250 MG in SODIUM CHLOR 0.9% 250 ML INJ 250 ML IV ONE (16:00)
[2017-04-15] MEDS: EPOETIN ALFA 10,000 UNITS/ML VIAL IV PUSH PRN (16:14)
[2017-04-15] MEDS: GELATIN 12 MM/7 MM FOAM TOP PRN (16:15)
[2017-04-15] MEDS: SEVELAMER CARBONATE 800 MG TAB PO SCH (17:00)
[2017-04-15] MEDS ORDERED: NITROGLYCERIN 2% OINT 1 GM PACKET TOPICAL PRN (19:30)
[2017-04-15] MEDS: LABETALOL HCL 100 MG/20 ML VIAL IV PUSH PRN (19:37)
[2017-04-15] MEDS: ATORVASTATIN 10 MG TAB PO SCH (21:00)
[2017-04-16] VITALS (15 sets, daily range): BP systolic 157–175; BP diastolic 72–83; PULSE 71–90; RESP 20–28; TEMP 97.9–99.1; O2SAT 94–100
[2017-04-16] MEDS: CHLORHEXIDINE GLUCONATE 2 % 1 PACK (2 CLOTHS) TOP SCH (04:00)
--- NOTE | 2017-04-16 05:38 | RADRPT ---
EXAM DATE/TIME: 04/16/2017 04:27 [place] COMPARISON: CHEST SINGLE AP, April 14, 2017, 5:26. INDICATIONS : Respiratory disease. MEDICAL HISTORY : Hypertension. Stage III renal failure SURGICAL HISTORY : None. ENCOUNTER: Subsequent ACUITY: 1 week PAIN SCORE: Non-responsive. LOCATION: Bilateral chest FINDINGS: Single AP view of the chest. Increase in aeration of the right lung base. Persistent bilateral lower lung zone opacity. No evidence of pleural effusion or pneumothorax. Cardiomediastinal silhouette unch anged. CONCLUSION: Persistent bilateral lower lung zone consolidation versus atelectasis. Increase in aeration of the ri ght lung base. Vin Solis MD on April 16, 2017 at 5:36 Board Certified Radiologist. This report was verified electronically.
[2017-04-16 06:31] LABS: AUTOMATED NEUTROPHIL # 19.8 TH/MM3 (1.8-7.7); BASOPHIL % 0.2 % (0.0-2.0); HEMATOCRIT 27.1 % (39.0-51.0); HEMOGLOBIN 8.8 GM/DL (13.0-17.0); LYMPHOCYTE # 0.7 TH/MM3 (1.0-4.8); MEAN CORPUSCULAR HEMOGLOBIN 31.7 PG (27.0-34.0); MEAN CORPUSCULAR HGB CONC 32.3 % (32.0-36.0); MEAN PLATELET VOLUME 7.5 FL (7.0-11.0); MONO % 4.9 % (0.0-8.0); NEUT % 91.9 % (16.0-70.0); PLATELET COUNT 468 TH/MM3 (150-450); RED BLOOD COUNT 2.77 MIL/MM3 (4.50-5.90); RED CELL DISTRIBUTION WIDTH 14.6 % (11.6-17.2); WHITE BLOOD COUNT 21.6 TH/MM3 (4.0-11.0)
[2017-04-16 07:20] LABS: ALBUMIN 2.1 GM/DL (3.4-5.0); BICARBONATE 29.7 MEQ/L (21.0-32.0); CALCIUM 10.4 MG/DL (8.5-10.1); CREATININE 3.69 MG/DL (0.60-1.30); PHOSPHORUS 5.5 MG/DL (2.5-4.9)
[2017-04-16 07:54] LABS: CORRECTED NUCLEATED RBC 8 /100 WBC (0-0); LYMPHOCYTES 3 % (9-44); MONOCYTES 2 % (0-8); MYELOCYTES 1 % (0-0); NEUTROPHIL # MANUAL DIFF 20.5 TH/MM3 (1.8-7.7); NUCLEATED RED BLOOD CELL 8 (0-0); POLYS (SEG NEUTROPHILS) 94 % (16-70)
[2017-04-16 07:55] LABS: HOWELL-JOLLY BODIES PRESENT (NONE SEEN); KERATOCYTES OCC (NORMAL)
[2017-04-16] MEDS: SEVELAMER CARBONATE 800 MG TAB PO SCH ×3 (08:00→16:32)
[2017-04-16] MEDS: hydrALAZINE HCL 20 MG/ML VIAL IV PUSH PRN ×2 (08:00→16:08)
[2017-04-16] MEDS: GABAPENTIN 100 MG CAP PO SCH ×3 (09:00→17:42)
[2017-04-16] MEDS: FINASTERIDE 5 MG TAB PO SCH (09:00)
[2017-04-16] MEDS: TAMSULOSIN HCL 0.4 MG CAP PO SCH (09:00)
[2017-04-16] MEDS: DOCUSATE SODIUM 50 MG/SENNA 8.6 MG TAB PO SCH ×2 (09:00→20:57)
[2017-04-16] MEDS: FUROSEMIDE 40 MG TAB PO SCH ×2 (09:00→17:42)
[2017-04-16] MEDS: SODIUM CHLORIDE 0.9% FLUSH 10 ML FLUSH IV FLUSH SCH ×2 (09:00→20:56)
[2017-04-16] MEDS: hydrALAZINE HCL 25 MG TAB PO SCH ×4 (09:00→17:42)
[2017-04-16] MEDS: CHLORHEXIDINE 0.12% (ORAL KIT) 15 ML CUP MT SCH ×2 (09:24→20:00)
[2017-04-16] MEDS: PANTOPRAZOLE SODIUM 40 MG VIAL IV PUSH SCH ×2 (09:26→20:56)
[2017-04-16] MEDS: PIPERACIL-TAZO 2.25 GM PREMIX 50 ML IV SCH ×2 (09:44→20:54)
--- NOTE | 2017-04-16 12:54 | HHI.IDPN ---
Note Infectious Disease Note Patient is awake. More alert. Afebrile. Denies pain or chills. No distress. Repeat blood culture no growth in 3 days. 2D ECHO noted. No vegetations. 76-year-old white male who was admitted to the hospital on 04/10 with epistaxis. The patient has end-stage renal disease and undergoes hemodialysis. When he was evaluated in the emergency department, he had a brief cardiopulmonary arrest and was intubated. PAST MEDICAL HISTORY: 1. Hypertension. 2. Diabetes mellitus. 3. Coronary artery disease. 4. Dyslipidemia. 5. End-stage renal disease. 6. Benign prostate hypertrophy. 7. History of left renal cell carcinoma. 8. Splenectomy. 9. Appendectomy. ALLERGIES: NO KNOWN DRUG ALLERGIES. ANTIBIOTICS: Vancomycin with dialysis. OBJECTIVE: Vital Signs Date Time Temp Pulse Resp B/P (MAP) Pulse Ox O2 Delivery O2 Flow Rate FiO2 04/16/17 10:00 81 04/16/17 08:45 100 Nasal Cannula 4.00 04/16/17 08:00 98.7 88 28 162/76 (104) 99 04/16/17 08:00 88 04/16/17 07:00 99 Nasal Cannula 4.00 04/16/17 06:00 80 04/16/17 04:00 99.1 90 25 166/78 (107) 95 04/16/17 04:00 90 04/16/17 02:00 86 04/16/17 00:00 76 04/16/17 00:00 98.8 86 20 164/73 (103) 94 04/15/17 22:45 20 04/15/17 22:00 76 04/15/17 20:32 97 Nasal Cannula 4.00 04/15/17 20:00 87 04/15/17 20:00 97.3 67 25 177/72 (107) 98 04/15/17 19:00 97 Nasal Cannula 4.00 04/15/17 18:00 87 04/15/17 16:00 97.8 94 23 182/87 (118) 99 04/15/17 16:00 84 04/15/17 14:00 84 Laboratory Tests Test 04/15/17 11:10 04/16/17 05:54 White Blood Count 20.9 TH/MM3 21.6 TH/MM3 Red Blood Count 2.77 MIL/MM3 2.77 MIL/MM3 Hemoglobin 8.9 GM/DL 8.8 GM/DL Hematocrit 27.4 % 27.1 % Mean Corpuscular Volume 99.1 FL 98.0 FL Mean Corpuscular Hemoglobin 32.2 PG 31.7 PG Mean Corpuscular Hemoglobin Concent 32.5 % 32.3 % Red Cell Distribution Width 15.3 % 14.6 % Platelet Count 505 TH/MM3 468 TH/MM3 Mean Platelet Volume 7.9 FL 7.5 FL Neutrophils (%) (Auto) 91.9 % Lymphocytes (%) (Auto) 3.0 % Monocytes (%) (Auto) 4.9 % Eosinophils (%) (Auto) 0.0 % Basophils (%) (Auto) 0.2 % Neutrophils # (Auto) 19.8 TH/MM3 Lymphocytes # (Auto) 0.7 TH/MM3 Monocytes # (Auto) 1.0 TH/MM3 Eosinophils # (Auto) 0.0 TH/MM3 Basophils # (Auto) 0.0 TH/MM3 CBC Comment AUTO DIFF Differential Total Cells Counted 100 Neutrophils % (Manual) 94 % Lymphocytes % 3 % Monocytes % 2 % Neutrophils # (Manual) 20.5 TH/MM3 Myelocytes 1 % Nucleated Red Blood Cells 8 /100 WBC Differential Comment FINAL DIFF MANUAL Platelet Estimate HIGH Platelet Morphology Comment NORMAL Garcia-[place] Bodies PRESENT Keratocytes OCC Red Cell Morphology Comment Laboratory Tests Test 04/15/17 11:10 04/16/17 05:54 Blood Urea Nitrogen 82 MG/DL 48 MG/DL Creatinine 5.62 MG/DL 3.69 MG/DL Random Glucose 129 MG/DL 85 MG/DL Total Protein 6.9 GM/DL Albumin 2.3 GM/DL 2.1 GM/DL Calcium Level 10.6 MG/DL 10.4 MG/DL Phosphorus Level 6.9 MG/DL 5.5 MG/DL Magnesium Level 2.9 MG/DL Alkaline Phosphatase 234 U/L Aspartate Amino Transf (AST/SGOT) 15 U/L Alanine Aminotransferase (ALT/SGPT) 20 U/L Total Bilirubin 1.2 MG/DL Sodium Level 141 MEQ/L 143 MEQ/L Potassium Level 4.0 MEQ/L 3.7 MEQ/L Chloride Level 99 MEQ/L 100 MEQ/L Carbon Dioxide Level 26.3 MEQ/L 29.7 MEQ/L Anion Gap 16 MEQ/L 13 MEQ/L Estimat Glomerular Filtration Rate 10 ML/MIN 16 ML/MIN Troponin I 0.25 NG/ML Microbiology Date/Time Source Procedure Growth Status 04/14/17 09:38 Blood Peripheral Aerobic Blood Culture - Preliminary NO GROWTH IN 2 DAYS Resulted 04/14/17 09:38 Blood Peripheral Anaerobic Blood Culture - Preliminary NO GROWTH IN 2 DAYS Resulted 04/13/17 17:10 Blood Peripheral Aerobic Blood Culture - Preliminary NO GROWTH IN 3 DAYS Resulted 04/13/17 17:10 Blood Peripheral Anaerobic Blood Culture - Preliminary NO GROWTH IN 3 DAYS Resulted Microbiology Date/Time Source Procedure Growth Status 04/14/17 09:38 Blood Peripheral Aerobic Blood Culture Pending Received 04/14/17 09:38 Blood Peripheral Anaerobic Blood Culture Pending Received 04/13/17 17:10 Blood Peripheral Aerobic Blood Culture - Preliminary NO GROWTH IN 1 DAY Resulted 04/13/17 17:10 Blood Peripheral Anaerobic Blood Culture - Preliminary NO GROWTH IN 1 DAY Resulted 04/11/17 20:15 Blood Peripheral Aerobic Blood Culture - Final Staph Sp Coagulase Negative Complete 04/11/17 20:15 Anaerobic Blood Culture - Final Staphylococcus Epidermidis Complete 04/11/17 20:10 Blood Peripheral Aerobic Blood Culture - Final Staph Sp Coagulase Negative Complete 04/11/17 20:10 Anaerobic Blood Culture - Final Staphylococcus Epidermidis Complete 04/11/17 20:10 Sputum Endotracheal Gram Stain - Final Complete 04/11/17 20:10 Sputum Endotracheal Sputum Culture - Final HEAVY GROWTH NORMAL RESPIRATORY ARABELLA Complete 04/12/17 05:58 Urine Catheterized Urine Urine Culture - Final NO GROWTH IN 48 HOURS. Complete IMAGING: Chest X-Ray 04/16/17 0600 Signed Impressions: Service Date/Time: Sunday, April 16, 2017 04:27 - CONCLUSION: Persistent bilateral lower lung zone consolidation versus atelectasis. Increase in aeration of the right lung base. Vin Solis MD Chest X-Ray 04/14/17 0600 Signed Impressions: Service Date/Time: April 05:26 - CONCLUSION: Unchanged bibasilar consolidations and cardiomegaly. Darwin Tsai Jr., MD Upper Extremity Ultrasound 04/14/17 0000 Signed Impressions: Service Date/Time: April 10:28 - CONCLUSION: Thrombus is identified within distal cephalic vein. Scottie Donovan MD Head CT 04/12/17 0000 Signed Impressions: Service Date/Time: Wednesday, April 12, 2017 16:08 - CONCLUSION: Chronic changes without hemorrhage mass effect. Scottie Donovan MD PHYSICAL EXAMINATION: GENERAL: No acute distress. Alert. HEAD, EYES, EARS, NOSE, THROAT: The sclerae are nonicteric. Mucosa is dry. No visible lesions. NECK: No adenopathy or swelling. LUNGS: Decreased breath sounds bilateral. HEART: Irregular. S1 and S2. No audible murmur. ABDOMEN: Bowel sounds present, soft, no tenderness. EXTREMITIES: No clubbing, cyanosis or edema. AV fistula at the right upper extremity appears intact. NEUROLOGIC: Non focal. PSYCHIATRIC: Calm. IMPRESSION: 1. Coagulase-negative Staph bacteremia. Patient developed fever and leukocytosis and had episode of cardiopulmonary arrest. 2. End-stage renal disease on hemodialysis. 3. Thrombus in distal cephalic LUE. 4. Abnormal CXR ? pneumonia. Improved aeration. 5. Leukocytosis. persistent. ? infection vs reactive. RECOMMENDATIONS: 1. Continue Vancomycin with dialysis until 04/25/17. 2. Continue Zosyn until 04/18/16. 3. Add Zithromax PO. Additional pulmonary coverage. 4. Continue to monitor the white blood cell count. Trell Simon MD Apr 16, 2017 12:54
[2017-04-16] MEDS: MORPHINE SULFATE 2 MG/ML INJ IV PUSH PRN ×2 (13:04→21:41)
[2017-04-16] MEDS ORDERED: AZITHROMYCIN 250 MG TAB PO SCH (14:00)
--- NOTE | 2017-04-16 15:25 | HHI.CCPN ---
Subjective Remarks/Hospital Course 76 y/o man developed a persistent nose bleed this morning after dialysis. In ED his INR was > 13 and he received Kcentra for warfarin reversal (permanent a-fib) . Due to airway problems from blood and hypovolemia he sustained a brief cardiopulmonary arrest in the [place] ED requiring intubation and ventilation. He was aggressively resuscitated by the staff at [facility] and transferred to [facility] for ongoing resuscitation. He arrived to the [facility] with BP 52/25 and pulse rate 44. Two units of type specific blood were administered and levophed initiated at 20 mics/min. A central line was placed revealing CVP < 5 while on positive pressure ventilation. Resuscitation is continuing. 04/11/17: Currently epistaxis is controlled. Patient is off Levophed, hypertensive. PRN hydralazine added. Patient continues to have coffee-ground output from the NG tube large amount. INR is 2.8 have added FFP 2 units and vitamin K stat. Repeat CBC and INR stat 04/12/17: Remains intubated but wakes up easily follows commands. Left upper extremity weaker. INR was 3.3 yesterday received 2 units FFP and vitamin K repeat INR pending. No further epistaxis and NGT output minimal 04/13/17: Extubated yesterday tolerating well. Blood cultures 4 out of 4 bottles positive for coag negative staph. ID consulted 2-D echo ordered. No further epistaxis reported. refused EGD 04/14/17: Protecting airway. Overnight crib pad maker was called for stridor- appear to be upper airway conducted sounds. Intermittent confusion, but on my exam AOx3 04/15/17: More lethargic today, but wakes up and follows commands. Received morphine 2 mg at 8 AM. Getting hemodialysis today. Will reduce Morphine from 2 to 1 mg. Also WBC count is elevated, to 20.7 04/16/17: Patient remains lethargic encephalopathy, but wakes up remains oriented to person and place. WBC count slightly further elevated to 21.6. Currently on vancomycin and Zosyn. Azithromycin added by infectious diseases have changed to IV. Repeat swallow eval Objective Vital Signs Date Time Temp Pulse Resp B/P (MAP) Pulse Ox O2 Delivery O2 Flow Rate FiO2 04/16/17 14:00 77 04/16/17 13:09 19 04/16/17 12:00 97.9 157/72 (100) 96 04/16/17 08:45 Nasal Cannula 4.00 04/12/17 12:00 40 Intake and Output 04/16/17 04/16/17 04/17/17 08:00 16:00 00:00 Intake Total 0 ml Output Total 0 ml 3500 ml Balance 0 ml -3500 ml Result Diagram: 04/16/17 0554 04/16/17 0554 Objective Remarks Gen: Ill-appearing, pale, elderly man, on NC. Lethargic getting hemodialysis ENT: Extubated airway widely patent. No active nasal bleeding Neck: Supple, no JVD. Conducted upper airway sounds Lungs: Chest bilaterally. Coarse rhonchi cleared with coughing Heart: Irreg Irreg, 3/6 THIERRY, LSB. Neck veins not distended. Abdomen: Nondistended, quiet. No guarding. Multiple well-healed surgical scars Extremities: Cold. Pale. Neuro: Lethargic but wakes up and follows commands. Generalized weakness. Oriented to person and place A/P Assessment and Plan Assessment: Coag negative staph bacteremia/sepsis Metabolic encephalopathy Hypovolemic shock-resolved Coagulopathy, Coumadin. Bradycardia. Respiratory Failure-resolved Acute blood loss anemia. Epistaxis-resolved Upper GIB ESRD. LUE weakness most likely is local weakness secondary to severe arthritis Plan: Neuro: - Metabolic encephalopathy most likely secondary to sepsis, worsening now - CT head to r/o stroke-negative for acute findings - Weakness of left upper extremity most likely related to arthritis and rotator cuff tendinitis Respiratory - Extubated 1/2 protecting airway - Lethargic check ABG - Continue with aggressive pulmonary toilet, EzPAP, ACapella - Broad-spectrum antibiotics and added azithromycin for possible pneumonia CV - Transfuse to Hgb > 7.0 - Hydralazine scheduled and PRN for hypertension GI - No further upper GI bleed, patient's refused any GI procedures - Reverse coagulopathy with K Centra and DDAVP. s/p 2U FFP and vitamin K 04/11/17 - Protonix. - Patient remains nothing by mouth due to inability to swallow. (able to swallow some thickened liquids with - Palliative care following assistance per RN) - Unable to place NG tube due to just resolved severe epistaxis, TPN may cause fluid overload due to end-stage renal disease - OGT or temporary feeding tube if unable to swallow in next two days. Patient did take some thickened liquid today - Monitor UO. ESRD on HD, getting hemodialysis today - Renal - Dr. Maria - Follow lytes closely Heme - Received Kcentra and DDAVP - Transfuse 2 units FFP and 10 mg vitamin K 04/11/17 - L cephalic vein thrombus. Hold off anticoagulation due to life threatening hemorrhage ID: - 4 out of 4 bottles staph epi bacteremia-source probably dialysis access - 2-D echo-pending no vegetation. ID consult appreciated - Continue IV vancomycin, continue Zosyn. Azithromycin added today - Repeat sputum culture Lines - Left SCV CVL 04/10-DCd Level 3 Continue ICU care due to intermittent confusion and questionable airway protection. More confused today, most likely from worsening sepsis. Check ABG. Unable to feed patient has NG tube over TPN is not ideal. Once level of consciousness improved patient should be able to tolerate by mouth diet Den Aguilera MD Apr 16, 2017 15:25
--- NOTE | 2017-04-16 18:00 | HHI.NPPN ---
Subjective History of Present Illness 76-year-old male with a history of end-stage renal disease on maintenance hemodialysis generally Tuesday and Tuesday however he was dialyzed last Tuesday secondary to the holiday. Subsequently developed epistaxis and presented to the emergency room with hypotension and his INR was said to be greater than 13. Patient was on Coumadin apparently for atrial fibrillation. According to the records patient subsequently required cardiopulmonary resuscitation and was intubated and remains on ventilatory support. Patient appears to be alert and nodding to questions. Nasal pack in place on left side. Interval History Patient appears to be more alert. by bedside. No verbal complaints. Review of Systems General General Remarks Unable to obtain Objective Data Data 04/16/17 04/17/17 19:00 07:00 Output Total 3500 ml Balance -3500 ml Hemodialysis 3500 ml Vital Signs Date Time Temp Pulse Resp B/P (MAP) Pulse Ox O2 Delivery O2 Flow Rate FiO2 04/16/17 16:00 72 04/16/17 16:00 98.0 72 25 175/79 (111) 97 04/16/17 14:00 77 04/16/17 13:09 19 04/16/17 12:00 97.9 77 25 157/72 (100) 96 04/16/17 12:00 74 04/16/17 10:00 81 04/16/17 08:45 100 Nasal Cannula 4.00 04/16/17 08:00 98.7 88 28 162/76 (104) 99 04/16/17 08:00 88 04/16/17 07:00 99 Nasal Cannula 4.00 04/16/17 06:00 80 04/16/17 04:00 99.1 90 25 166/78 (107) 95 04/16/17 04:00 90 04/16/17 02:00 86 04/16/17 00:00 76 04/16/17 00:00 98.8 86 20 164/73 (103) 94 04/15/17 22:00 76 04/15/17 20:32 97 Nasal Cannula 4.00 04/15/17 20:00 87 04/15/17 20:00 97.3 67 25 177/72 (107) 98 04/15/17 19:00 97 Nasal Cannula 4.00 04/15/17 18:00 87 -: 04/16/17 0554 04/16/17 0554 Physical Exam General Appearance: Comfortable Pulmonary Resp Exam: Clear Bilaterally, Breath Sounds Equal Cardiology CV Exam: Regular, Normal Sinus Rhythm Gastrointestinal/Abdomen GI Exam: Soft, Non-Tender Integumentary Skin Exam: Clear, Warm Extremeties Extremities Exam: No Edema, Dependent Edema Neurologic Neuro Exam: Moving All Extremities Assessment/Plan Discussed Condition With: Patient Problem List: (1) ESRD (end stage renal disease) on dialysis ICD Codes: N18.6 - End stage renal disease; Z99.2 - Dependence on renal dialysis Status: Chronic Plan: Pt seen during HD today HD RN able to change to 2.0 calcium bath given his hypercalcemia Patient was seen postdialysis today and the volume status is much improved. Patient is however at nutritional risk. Note is still nothing by mouth secondary to pending swallowing evaluation. Nutritional support should be resumed by tomorrow either orally or by other means in my opinion given patient's high nutritional risk. I will defer modality of nutrition to primary care. Medications should be adjusted for the patient's ESRD. Avoid gadolinium (2) Hypercalcemia associated with chronic dialysis ICD Codes: E83.52 - Hypercalcemia Status: Chronic Plan: Patient has a history of previous hypercalcemia which was evaluated for and no specific etiology determined. 2.0 calcium bath ordered (3) Anemia of renal disease ICD Codes: D63.1 - Anemia in chronic kidney disease Status: Chronic Plan: Infectious disease notes reviewed. Repeat blood cultures negative. I will order Venofer for tomorrow. (4) Epistaxis ICD Codes: R04.0 - Epistaxis Status: Acute (5) Coumadin toxicity ICD Codes: T45.511A - Poisoning by anticoagulants, accidental (unintentional), initial encounter Status: Acute Plan: Defer anticoagulation management to primary care physician. (6) HTN (hypertension) ICD Codes: I10 - Essential (primary) hypertension Status: Chronic Plan The exam, history, and the medical decision-making described in the above note were completed with the assistance of the LISA. I reviewed and agree with the findings presented. Danita Maria MD Apr 16, 2017 18:00
[2017-04-16] MEDS: ATORVASTATIN 10 MG TAB PO SCH (20:56)
[2017-04-17] VITALS (23 sets, daily range): BP systolic 119–167; BP diastolic 56–74; PULSE 52–80; RESP 15–20; TEMP 97.7–98.6; O2SAT 90–100
[2017-04-17] MEDS: CHLORHEXIDINE GLUCONATE 2 % 1 PACK (2 CLOTHS) TOP SCH (01:24)
[2017-04-17] MEDS: LABETALOL HCL 100 MG/20 ML VIAL IV PUSH PRN (02:46)
[2017-04-17 06:04] LABS: AUTOMATED NEUTROPHIL # 17.5 TH/MM3 (1.8-7.7); BASOPHIL % 0.2 % (0.0-2.0); EOSINOPHIL % 0.2 % (0.0-4.0); HEMATOCRIT 29.8 % (39.0-51.0); HEMOGLOBIN 9.7 GM/DL (13.0-17.0); LYMPH % 4.6 % (9.0-44.0); LYMPHOCYTE # 0.9 TH/MM3 (1.0-4.8); MEAN CELL VOLUME 99.8 FL (80.0-100.0); MEAN CORPUSCULAR HEMOGLOBIN 32.5 PG (27.0-34.0); MEAN CORPUSCULAR HGB CONC 32.6 % (32.0-36.0); MEAN PLATELET VOLUME 7.9 FL (7.0-11.0); MONO % 6.8 % (0.0-8.0); MONOCYTE # 1.3 TH/MM3 (0-0.9); NEUT % 88.2 % (16.0-70.0); PLATELET COUNT 509 TH/MM3 (150-450); RED BLOOD COUNT 2.99 MIL/MM3 (4.50-5.90); RED CELL DISTRIBUTION WIDTH 15.3 % (11.6-17.2); WHITE BLOOD COUNT 19.8 TH/MM3 (4.0-11.0)
[2017-04-17 06:33] LABS: ALBUMIN 2.3 GM/DL (3.4-5.0); ALKALINE PHOSPHATASE 212 U/L (45-117); ALT (GPT) 14 U/L (12-78); AST (GOT) 15 U/L (15-37); BICARBONATE 31.7 MEQ/L (21.0-32.0); BLOOD UREA NITROGEN 47 MG/DL (7-18); CALCIUM 11.3 MG/DL (8.5-10.1); CHLORIDE 98 MEQ/L (98-107); CREATININE 3.31 MG/DL (0.60-1.30); GLOMERULAR FILTRATION RATE 18 ML/MIN (>89); GLUCOSE,RANDOM 145 MG/DL (74-106); SODIUM (NA) 141 MEQ/L (136-145); TOTAL BILIRUBIN ADULT 1.3 MG/DL (0.2-1.0); TOTAL PROTEIN 6.9 GM/DL (6.4-8.2)
[2017-04-17 06:39] LABS: CORRECTED NUCLEATED RBC 19 /100 WBC (0-0); LYMPHOCYTES 4 % (9-44); MONOCYTES 4 % (0-8); MYELOCYTES 4 % (0-0); NUCLEATED RED BLOOD CELL 19 (0-0); POLYS (SEG NEUTROPHILS) 87 % (16-70)
[2017-04-17 06:40] LABS: HOWELL-JOLLY BODIES PRESENT (NONE SEEN); KERATOCYTES 1+ (NORMAL)
[2017-04-17] MEDS: CHLORHEXIDINE 0.12% (ORAL KIT) 15 ML CUP MT SCH ×2 (08:00→20:24)
[2017-04-17] MEDS ORDERED: IRON SUCROSE INJ 100 MG in SODIUM CHLORIDE 0.9% INJ 100 ML IV ONE (08:00)
[2017-04-17] MEDS: SEVELAMER CARBONATE 800 MG TAB PO SCH ×3 (08:00→17:00)
[2017-04-17] MEDS: RESP: ALBUTEROL 2.5 MG/IPRATROPIUM 0.5 MG NEB (PRN) INH (08:16)
[2017-04-17] MEDS: PANTOPRAZOLE SODIUM 40 MG VIAL IV PUSH SCH ×2 (08:25→20:25)
[2017-04-17] MEDS: PIPERACIL-TAZO 2.25 GM PREMIX 50 ML IV SCH ×2 (08:25→20:25)
[2017-04-17] MEDS: SODIUM CHLORIDE 0.9% FLUSH 10 ML FLUSH IV FLUSH SCH ×3 (08:25→20:25)
[2017-04-17] MEDS: GABAPENTIN 100 MG CAP PO SCH ×4 (08:26→18:23)
[2017-04-17] MEDS: FUROSEMIDE 40 MG TAB PO SCH ×2 (08:26→17:21)
[2017-04-17] MEDS: FINASTERIDE 5 MG TAB PO SCH (08:26)
[2017-04-17] MEDS: hydrALAZINE HCL 25 MG TAB PO SCH ×3 (08:26→17:20)
[2017-04-17] MEDS: DOCUSATE SODIUM 50 MG/SENNA 8.6 MG TAB PO SCH ×2 (08:26→20:25)
[2017-04-17] MEDS: TAMSULOSIN HCL 0.4 MG CAP PO SCH (08:26)
[2017-04-17] MEDS: hydrALAZINE HCL 20 MG/ML VIAL IV PUSH PRN (08:48)
--- NOTE | 2017-04-17 08:51 | RADRPT ---
EXAM DATE/TIME: 04/17/2017 08:38 [place] COMPARISON: CHEST SINGLE AP, April 16, 2017, 4:27. INDICATIONS : Shortness of breath. MEDICAL HISTORY : Hypertension. Stage III renal failure SURGICAL HISTORY : None. ENCOUNTER: Initial ACUITY: 1 day PAIN SCORE: Non-responsive. LOCATION: Bilateral chest FINDINGS: Perihilar and bibasilar patchiness is again noted and stable. The heart is enlarged but stable. Degen erative changes and scoliosis of the thoracolumbar spine are noted. CONCLUSION: No significant change compared to 04/16/17. Winston Grande MD on April 17, 2017 at 8:47 Board Certified Radiologist. This report was verified electronically.
[2017-04-17] MEDS ORDERED: PROPOFOL 1000 MG/100 ML INJ 100 ML IV PRN (09:00)
[2017-04-17] MEDS ORDERED: ETOMIDATE 40 MG/20 ML VIAL IV PUSH ONE (09:00)
[2017-04-17] MEDS ORDERED: ROCURONIUM INJ 100 MG/10 ML VIAL IV ONE (09:00)
[2017-04-17] MEDS: NOREPINEPHRINE-DEXTROSE DRIP 250 ML IV ONE (09:31)
[2017-04-17] MEDS ORDERED: NOREPINEPHRINE 4 MG/4 ML AMP ONE (09:32)
[2017-04-17] MEDS: NOREPINEPHRINE INJ 4 MG in SODIUM CHLOR 0.9% 250 ML INJ 246 ML IV PRN ×2 (09:45→23:04)
--- NOTE | 2017-04-17 09:49 | PD.PROCEDR ---
Central Line Procedure REASON FOR PROCEDURE Central venous access PROCEDURE PERFORMED Central line placement: Left IJ CVL CONSENT Informed consent for procedure was not obtained and considered emergent due to hemodynamic instability. Attempts to contact [facility] unsuccessful. The risks and benefits of the procedure were discussed to include but limited to bleeding, clot formation, infection, and even . ANESTHESIA Local injection of 1% Lidocaine DESCRIPTION OF THE PROCEDURE The patient was placed in supine, mild Trendelenburg position. The area was exposed and cleansed with ChloraPrep, times two. Large sterile drape was used to cover the patient, with the site exposed, under sterile conditions including cap, face mask, sterile gown, and sterile gloves. On single attempt, the introducer needle was inserted with negative pressure in syringe and venous flash was obtained. The guide wire was then advanced without any restriction and the needle was removed. The dilator was used without any complications. Using Seldinger technique the antibiotic coated triple-lumen catheter was advanced over the guide wire to a depth of 20 centimeters. The guide wire was removed. All ports were aspirated with dark venous blood return and flushed easily with sterile saline. All ports were capped. Antibiotic disc was placed around central line at puncture site. The central line was secured to the skin with two interrupted 2.0 silk sutures. The area was bandaged with sterile see- through central line bandage. RADIOLOGICAL DATA Ultrasound guidance was used to locate left internal jugular vein. Doppler/ color flow was used to confirm venous flow. COMPLICATIONS: No apparent complications ESTIMATED BLOOD LOSS: Less than 1 cc. Avinash Cantu MD Apr 17, 2017 09:49
--- NOTE | 2017-04-17 09:51 | PD.PROCEDR ---
Procedure Note Procedure DATE: 04/17/2017 PROCEDURE: Orotracheal intubation INDICATION: Respiratory failure/acute DETAILS OF PROCEDURE The patient was placed in optimal position and preoxygenated with 100% FiO2 via bag valve mask. At the start oxygen saturation was 50%. The patient was administered no medications IV. I entered the oropharynx with a size D CMAC blade and obtained a grade 3 view of the airway. On single attempt a size 8.0 cuffed endotracheal tube was passed through the vocal cords. Correct tube location was confirmed with end tidal CO2 detector and by auscultating over bilateral lung juárez. The endotracheal tube was secured with adhesive tape at a depth of 24 cm at the lips. The patient was connected to the ventilator. The patient tolerated the procedure well without any apparent complications. Oxygen saturations were 100% post intubation. STAT chest x-ray pending at time of dictation. Avinash Cantu MD Apr 17, 2017 09:51
--- NOTE | 2017-04-17 09:52 | PD.PROCEDR ---
Procedure Note Procedure CODE BLUE Prior to intubation, patient became bradycardic into asystole likely due to respiratory failure. CPR was initiated 918. This included chest compressions. Patient was intubated 921. ROSC at 922. 1 mg epinephrine given Patient with purposeful movement post code. Avinash Cantu MD Apr 17, 2017 09:52
[2017-04-17] MEDS ORDERED: SODIUM CHLORIDE 0.9% FLUSH 10 ML FLUSH IV FLUSH PRN (10:00)
--- NOTE | 2017-04-17 10:01 | HHI.CCPN ---
Subjective Remarks/Hospital Course 76 y/o man developed a persistent nose bleed this morning after dialysis. In ED his INR was > 13 and he received Kcentra for warfarin reversal (permanent a-fib) . Due to airway problems from blood and hypovolemia he sustained a brief cardiopulmonary arrest in the [place] ED requiring intubation and ventilation. He was aggressively resuscitated by the staff at [facility] and transferred to [facility] for ongoing resuscitation. He arrived to the [facility] with BP 52/25 and pulse rate 44. Two units of type specific blood were administered and levophed initiated at 20 mics/min. A central line was placed revealing CVP < 5 while on positive pressure ventilation. Resuscitation is continuing. 04/11/17: Currently epistaxis is controlled. Patient is off Levophed, hypertensive. PRN hydralazine added. Patient continues to have coffee-ground output from the NG tube large amount. INR is 2.8 have added FFP 2 units and vitamin K stat. Repeat CBC and INR stat 04/12/17: Remains intubated but wakes up easily follows commands. Left upper extremity weaker. INR was 3.3 yesterday received 2 units FFP and vitamin K repeat INR pending. No further epistaxis and NGT output minimal 04/13/17: Extubated yesterday tolerating well. Blood cultures 4 out of 4 bottles positive for coag negative staph. ID consulted 2-D echo ordered. No further epistaxis reported. refused EGD 04/14/17: Protecting airway. 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 Intermittent confusion, but on my exam AOx3 04/15/17: More lethargic today, but wakes up and follows commands. Received morphine 2 mg at 8 AM. Getting hemodialysis today. Will reduce Morphine from 2 to 1 mg. Also WBC count is elevated, to 20.7 04/16/17: Patient remains lethargic encephalopathy, but wakes up remains oriented to person and place. WBC count slightly further elevated to 21.6. Currently on vancomycin and Zosyn. Azithromycin added by infectious diseases have changed to IV. Repeat swallow eval Subjective 04/17: Patient went to acute respiratory arrest likely secondary to hypoxia etiology likely aspiration. Please see CPR note. Copious amounts of brownish secretions for ET tube and central line placed emergently. Attempts to contact Aylin Avila [phone] unsuccessful Objective Vital Signs Date Time Temp Pulse Resp B/P (MAP) Pulse Ox O2 Delivery O2 Flow Rate FiO2 04/17/17 08:16 90 Non-Rebreather 15.00 04/17/17 08:00 98.2 75 20 159/71 (100) Intake and Output 04/17/17 04/17/17 04/18/17 08:00 16:00 00:00 Intake Total 0 ml Output Total 0 ml Balance 0 ml Result Diagram: 04/17/178 04/17/178 Other Results Microbiology Date/Time Source Procedure Growth Status 04/14/17 09:38 Blood Peripheral Aerobic Blood Culture - Preliminary NO GROWTH IN 2 DAYS Resulted 04/14/17 09:38 Blood Peripheral Anaerobic Blood Culture - Preliminary NO GROWTH IN 2 DAYS Resulted 04/11/17 20:10 Sputum Endotracheal Gram Stain - Final Complete 04/11/17 20:10 Sputum Endotracheal Sputum Culture - Final HEAVY GROWTH NORMAL RESPIRATORY ARABELLA Complete 04/12/17 05:58 Urine Catheterized Urine Urine Culture - Final NO GROWTH IN 48 HOURS. Complete Imaging Last Impressions Chest X-Ray 04/17/17 0000 Signed Impressions: Service Date/Time: Monday, April 17, 2017 08:38 - CONCLUSION: No significant change compared to 04/16/17. Winston Grande MD Upper Extremity Ultrasound 04/14/17 0000 Signed Impressions: Service Date/Time: April 10:28 - CONCLUSION: Thrombus is identified within distal cephalic vein. Scottie Donovan MD Head CT 04/12/17 0000 Signed Impressions: Service Date/Time: Wednesday, April 12, 2017 16:08 - CONCLUSION: Chronic changes without hemorrhage mass effect. Scottie Donovan MD Objective Remarks Gen: 76-year-old male, critically ill currently resting in bed orotracheally intubated ENT: No epistaxis. Oropharynx with dried secretions. No oropharyngeal edema. Neck: Supple, no JVD. Left IJ is clean dry and intact Lungs: Chest bilaterally. Coarse rhonchi. No wheezing Heart: Irreg Irreg, 3/6 THIERRY, LSB. Neck veins not distended. Abdomen: Nondistended, quiet. No guarding. Multiple well-healed surgical scars Extremities: Cool and pale. Neuro: Radial nerves II through XII grossly intact. Moves all 4 extremity spontaneously/withdraws to noxious stimuli. Vascular Central Line Catheter: Yes Assessment to: Continue Date of Insertion: Apr 17, 2017 Line: Central Venous Catheter Location: Internal, Jugular A/P Assessment and Plan Neuro/Psych: Acute toxic metabolic encephalopathy secondary to sepsis Bilateral cataracts STEBBINS Currently on propofol/fentanyl drips for sedation/analgesia while intubated Goal of RA SS -1 Daily sedation vacation Continue gabapentin 100 mg 3 times a day/home medication for neuropathy - Metabolic encephalopathy most likely secondary to sepsis, worsening now - CT head on admission revealed no acute intracranial findings. Chronic changes - Weakness of left upper extremity most likely related to arthritis and rotator cuff tendinitis Respiratory Acute hypoxic respiratory failure likely secondary to aspiration PRVC 15/550/ Ventilator bundle Albuterol/ipratropium aerosols every 6 hours with albuterol aerosols every 2 hours. Dyspnea Spontaneous breathing trials when clinically indicated Follow-up chest x-ray revealed likely mucus plugging right main bronchus below the right upper lobe. Bronchoscopy performed today. - Extubated 04/12 protecting airway - reintubated 04/17 CTPA ordered post bronchoscopy CV PEA secondary to respiratory arrest secondary to aspiration resolved Atrial fibrillation Hypotension Dyslipidemia Currently norepinephrine to maintain mean arterial pressure greater than equal to 65 Check CVP Received 1 L normal saline wide open Check EKG troponin 2-D echocardiogram revealed EF 60-65%. Right atrium mildly dilated. Moderate MR/TR. PAP 50-60 mmHg Currently on atorvastatin 10 mg daily/40 mg daily at home for dyslipidemia Currently Lasix 40 mg twice a day Currently hydralazine 75 mg every 8 hours. Hold 1 set hypotensive GI Likely upper GI bleed Gastroesophageal reflux disease History of splenectomy - No further upper GI bleed, patient's refused any GI procedures - -Pantoprazole 40 mg IV twice a day - OGT to [facility] End-stage renal disease - hemodialysis Tuesday/Tuesday/Tuesday - Monitor UO. ESRD on HD, getting hemodialysis today - Renal - Dr. Maria Continue tamsulosin 0.4 mg daily and finasteride 5 mill grams daily Maintain He Heme Epistaxis-resolved - Dr. Stewart followed Warfarin coagulopathy/toxicity - resolved Warfarin coagulopathy resolved post- Kcentra and DDAVP and 2U FFP and 10 mg vitamin K 04/11 Left cephalic vein superficial thrombosis Leukocytosis Normocytic anemia - admission with acute blood loss anemia Thrombocytosis Monitor CBC daily. Follow trends Currently with superficial thrombosis/no DVT prophylaxis or resumption of warfarin due to high risk of bleeding Follow-up on coags and CBC in a.m. ID: Staph epi bacteremia - 4 out of 4 bottles staph epi bacteremia-source probably dialysis access. Repeat blood culture 04/13 negative - 2-D echo- no vegetation. ID consult appreciated - Continue IV vancomycin, continue azithromycin stop date 04/20 and piperacillin/ tazobactam stop date 04/18 - Repeat sputum culture FEN: Hypercalcemia Hyperphosphatemia Check PTH and calcitriol levels. Vitamin D levels. Sevelamer 800 mg 3 times a day for hyperphosphatemia Replace electrolytes as clinically indicated Current normal saline at 84 cc an hour Lines - Left SCV CVL 04/10-DCd? - Left IJ CVL 04/17 Critical care time 35 minutes Avinash Cantu MD Apr 17, 2017 10:01
[2017-04-17] MEDS: SODIUM CHLOR 0.9% 1000 ML INJ 1,000 ML IV SCH ×2 (10:30→22:25)
[2017-04-17] MEDS ORDERED: SODIUM BICARBONATE 8.4% INJ 50 MEQ/50 ML SYR ONE (10:46)
--- NOTE | 2017-04-17 10:57 | PD.PROCEDR ---
Procedure Note Procedure DATE: 04/17/2017 Fiberoptic bronchoscopy, diagnostic and therapeutic: INDICATION: Acute hypoxic respiratory failure - mucus plugging right CONSENT Informed consent for procedure was attempted to be obtained from Catina power of civil attorney however she was unavailable. Procedure note The patient was placed in supine position. Patient was on PRVC saturations 100 %. Patient was on propofol drip at 10 mics grams per kilogram per minute. Received 40 mg etomidate and 50 mill grams rocuronium. I entered the 8.0 ET tube with fiberoptic bronchoscopy. The reilly was sharp. Distal to the right upper lobe, large mucous plug was identified. Lavaged with copious amounts of sterile saline. Lukens trap was placed and lavage right middle lobe with sample sent. Suction trauma was noted in right middle lobe. Patient received one episode of bicarbonate with cessation of bleeding. Mucosa was very friable the right upper, middle lower lobe. The right upper lobe was identified suctioned with saline. Right lower lobe was identified suctioned with sterile saline of multiple white mucous plugs. Of white mucus plugging the lingula/ upper lobe and left lower lobe were evaluated. Mucosa was normal. No mucus plugging was identified. Scope was withdrawn. COMPLICATIONS: No apparent complications. STAT chest x-ray pending at time of dictation Avinash Cantu MD Apr 17, 2017 10:57
--- NOTE | 2017-04-17 11:07 | RADRPT ---
EXAM DATE/TIME: 04/17/2017 09:59 [facility] COMPARISON: CHEST SINGLE AP, April 17, 2017, 8:38. INDICATIONS : Central line placement. MEDICAL HISTORY : Hypertension. Stage III renal failure SURGICAL HISTORY : None. ENCOUNTER: Subsequent ACUITY: 1 day PAIN SCORE: Non-responsive. LOCATION: Bilateral chest FINDINGS: An endotracheal tube has its tip approximately 4 cm above the reilly. A left internal jugular central line has its tip in super vena cava. There is no pneumothorax. There is elevation of the right hemid iaphragm. Patchiness is noted within the right lung base and is worse compared to the previous examin ation consistent with possible worsening pneumonia and/or atelectasis. Cardiomegaly is again noted an d stable. Degenerative changes and scoliosis of the thoracolumbar spine are noted. CONCLUSION: 1. Worsening right basilar patchiness consistent with possible worsening pneumonia and/or atelectasis . Clinical correlation is recommended. 2. Elevation of the right hemidiaphragm. 3. Endotracheal tube and left internal jugular central line are in good positions. 4. Stable cardiomegaly. 5. Degenerative changes and scoliosis of the thoracolumbar spine. Winston Grande MD on April 17, 2017 at 11:02 Board Certified Radiologist. This report was verified electronically.
[2017-04-17 11:47] LABS: HEMATOCRIT 30.3 % (39.0-51.0); HEMOGLOBIN 9.7 GM/DL (13.0-17.0); MEAN CELL VOLUME 99.7 FL (80.0-100.0); MEAN CORPUSCULAR HEMOGLOBIN 31.8 PG (27.0-34.0); MEAN CORPUSCULAR HGB CONC 31.9 % (32.0-36.0); PLATELET COUNT 508 TH/MM3 (150-450); RED BLOOD COUNT 3.04 MIL/MM3 (4.50-5.90); RED CELL DISTRIBUTION WIDTH 15.1 % (11.6-17.2); WHITE BLOOD COUNT 23.8 TH/MM3 (4.0-11.0)
[2017-04-17 11:54] LABS: INTERNATIONAL NORMALIZED RATIO 2.6 RATIO; PROTHROMBIN TIME - PATIENT 26.7 SEC (9.8-11.6)
--- NOTE | 2017-04-17 12:34 | HHI.NPPN ---
Subjective History of Present Illness 76-year-old male with a history of end-stage renal disease on maintenance hemodialysis generally Tuesday and Tuesday however he was dialyzed last Tuesday secondary to the holiday. Subsequently developed epistaxis and presented to the emergency room with hypotension and his INR was said to be greater than 13. Patient was on Coumadin apparently for atrial fibrillation. According to the records patient subsequently required cardiopulmonary resuscitation and was intubated and remains on ventilatory support. Patient appears to be alert and nodding to questions. Nasal pack in place on left side. Interval History Pt reintubated this AM after what appears to be aspiration event that required resuscitation. He is currently sedated and on Levo for BP support. (Isis Herman) Review of Systems General General Remarks Unable to obtain (Isis Herman) Objective Data Data Vital Signs Date Time Temp Pulse Resp B/P (MAP) Pulse Ox O2 Delivery O2 Flow Rate FiO2 04/17/17 12:00 57 04/17/17 12:00 97.7 57 15 119/56 (77) 98 04/17/17 10:35 95 100 04/17/17 10:00 76 04/17/17 09:28 100 100 04/17/17 08:16 90 Non-Rebreather 15.00 04/17/17 08:00 98.2 75 20 159/71 (100) 92 04/17/17 08:00 80 04/17/17 07:00 97 Nasal Cannula 4.00 04/17/17 06:00 80 04/17/17 04:00 98.1 63 20 167/72 (103) 100 04/17/17 04:00 69 04/17/17 02:00 69 04/17/17 00:00 72 04/17/17 00:00 98.1 80 20 167/74 (105) 100 04/16/17 22:00 77 04/16/17 20:18 98 Nasal Cannula 4.00 04/16/17 20:00 75 04/16/17 20:00 98.1 75 20 175/83 (113) 98 04/16/17 19:30 168/79 (108) 04/16/17 19:00 97 Nasal Cannula 4.00 04/16/17 18:00 71 04/16/17 16:00 72 1/6/18 16:00 98.0 72 25 175/79 (111) 97 04/16/17 14:00 77 04/16/17 13:09 19 (Isis Herman) -: 04/17/17 1101 04/17/17 0448 Microbiology 04/17/17 Fungal Smear, Received Pending 04/17/17 Fungal Culture, Received Pending 04/17/17 Acid Fast Stain, Received Pending 04/17/17 Mycobacterial Culture, Received Pending 04/17/17 Gram Stain, Received Pending 04/17/17 Bronchial Culture, Received Pending Imaging Last Impressions Chest X-Ray 04/17/17 0948 Signed Impressions: Service Date/Time: Monday, April 17, 2017 09:59 - CONCLUSION: 1. Worsening right basilar patchiness consistent with possible worsening pneumonia and/or atelectasis. Clinical correlation is recommended. 2. Elevation of the right hemidiaphragm. 3. Endotracheal tube and left internal jugular central line are in good positions. 4. Stable cardiomegaly. 5. Degenerative changes and scoliosis of the thoracolumbar spine. Winston Grande MD Upper Extremity Ultrasound 04/14/17 0000 Signed Impressions: Service Date/Time: April 10:28 - CONCLUSION: Thrombus is identified within distal cephalic vein. Scottie Donovan MD Head CT 04/12/17 0000 Signed Impressions: Service Date/Time: Wednesday, April 12, 2017 16:08 - CONCLUSION: Chronic changes without hemorrhage mass effect. Scottie Donovan MD Medication Review Current Medications Medications (Trade) Dose Ordered Sig/Terra Route Start Time Stop Time Status Last Admin (Lipitor) 10 mg HS PO 04/10/17 21:00 04/16/17 20:56 (Proscar) 5 mg DAILY PO 04/11/17 09:00 04/12/17 08:04 (Lasix) 40 mg BID@0900,1800 PO 04/10/17 18:00 04/12/17 08:08 (Neurontin) 100 mg TID PO 04/10/17 18:00 04/16/17 17:42 (Apresoline) 75 mg TID PO 04/10/17 18:00 04/16/17 17:42 (Flomax) 0.4 mg DAILY PO 04/11/17 09:00 1/2/18 08:04 (NS Flush) 2 ml UNSCH PRN IV FLUSH 04/10/17 16:45 (NS Flush) 2 ml BID IV FLUSH 04/10/17 21:00 04/17/17 08:25 (Tylenol) 650 mg Q6H PRN PO 04/10/17 16:45 (Zofran Inj) 4 mg Q6H PRN IV PUSH 04/10/17 16:45 Miscellaneous Information 1 Q361D XX 04/10/17 16:45 04/10/17 16:45 (Chlorhexidine 2% Cloth) Taper DAILY@04 TOP 04/11/17 04:00 04/07/18 03:59 (Chlorhexidine 2% Cloth) 3 pack UNSCH PRN TOP 04/10/17 16:45 (Clarissa-Colace) 1 tab BID PO 04/10/17 21:00 04/12/17 21:00 (Milk Of Magnesia Liq) 30 ml Q12H PRN PO 04/10/17 16:45 (Senokot) 17.2 mg Q12H PRN PO 04/10/17 16:45 (Dulcolax Supp) 10 mg DAILY PRN RECTAL 04/10/17 16:45 (Lactulose Liq) 30 ml DAILY PRN PO 04/10/17 16:45 (Brethine Inj) 1 mg UNSCH PRN SQ 04/10/17 17:30 (Tylenol Supp) 650 mg Q6H PRN RECTAL 04/10/17 18:45 04/11/17 18:43 (Protonix Inj) 40 mg Q12H IV PUSH 04/11/17 21:00 04/17/17 08:25 Piperacillin Sod/ Tazobactam Sod 50 ml @ 100 mls/hr Q12H IV 04/11/17 20:00 04/18/17 10:00 04/17/17 08:25 Sodium Chloride 1,000 ml @ 0 mls/hr Q0M PRN OTHER 04/12/17 11:15 04/13/17 17:00 (Heparin Inj) UNSCH PRN IV FLUSH 04/12/17 11:30 Sodium Chloride 1,000 ml @ 200 mls/hr Q5H PRN IV 04/12/17 11:15 Sodium Chloride 1,000 ml @ 0 mls/hr Q0M PRN OTHER 04/12/17 11:15 (Mannitol Inj) 12.5 gm UNSCH PRN IV 04/12/17 11:15 Albumin Human 100 ml @ 60 mls/hr UNSCH PRN IV 04/12/17 11:30 (NS Flush) 5 ml UNSCH PRN IV FLUSH 04/12/17 11:15 (Gentamicin (Dialysis) Inj) 20 mg UNSCH PRN OTHER 04/12/17 11:30 (Zofran Inj) 4 mg UNSCH PRN IV PUSH 04/12/17 11:30 (Tylenol) 650 mg UNSCH PRN PO 04/12/17 11:30 (Benadryl) 25 mg UNSCH PRN PO 04/12/17 11:30 (Nitrostat Sl) 0.4 mg UNSCH PRN SL 04/12/17 11:30 (Catapres) 0.1 mg UNSCH PRN PO 04/12/17 11:30 04/16/17 20:56 (Epogen Inj) 10,000 units UNSCH PRN IV PUSH 04/12/17 11:30 04/15/17 16:14 (Gelfoam 12 Mm/7 Mm Top) 1 foam UNSCH PRN TOP 04/12/17 11:30 04/15/17 16:15 (Morphine Inj) 1 mg Q4H PRN IV PUSH 04/15/17 14:45 04/16/17 21:41 (Renvela) 800 mg TIDAC PO 04/15/17 17:00 (Apresoline Inj) 10 mg Q1HR PRN IV PUSH 04/15/17 19:30 04/17/17 08:48 (Trandate Inj) 10 mg Q1HR PRN IV PUSH 04/15/17 19:30 04/17/17 02:46 (Nitroglycerin 2% Oint) 2 inch Q6HR PRN TOPICAL 04/15/17 19:30 04/15/17 21:10 Vancomycin HCl 1000 mg/Sodium Chloride 250 ml @ 250 mls/hr WITH DIALYSIS IV 04/16/17 13:45 Azithromycin 500 mg/Sodium Chloride 250 ml @ 250 mls/hr Q24H IV 04/17/17 15:00 04/20/17 14:59 (Peridex 0.12% Liq) 15 ml BID@08,20 MT 04/17/17 20:00 Fentanyl Citrate 250 ml @ 5 mls/hr TITRATE PRN IV 04/17/17 09:00 (NS Flush) DAILY IV FLUSH 04/17/17 10:00 (NS Flush) UNSCH PRN IV FLUSH 04/17/17 10:00 (Tears Naturale Opth Soln) 1 drop Q8HR EACH EYE 04/17/17 14:00 (Duoneb Neb) 1 ampule Q6HR NEB NEB 04/17/17 16:00 (Albuterol Neb) 2.5 mg Q2HR NEB PRN NEB 04/17/17 10:30 (Sodium Chloride 3% Neb) 2 ml Q6HR NEB NEB 04/17/17 16:00 Sodium Chloride 1,000 ml @ 84 mls/hr [id number] IV 04/17/17 10:30 (Colace Liq) 100 mg Q12HR PO 04/17/17 21:00 (Senna Liq) 8.8 mg BID PO 04/17/17 21:00 Midazolam HCl 100 ml @ 2 mls/hr TITRATE PRN IV 04/17/17 12:30 UNV (Isis Herman) Physical Exam General Appearance: No Acute Distress, Comfortable (Isis Herman) Pulmonary Resp Exam: Clear Bilaterally, Breath Sounds Equal (Isis Herman) Cardiology CV Exam: Regular, Normal Sinus Rhythm (Isis Herman) Gastrointestinal/Abdomen GI Exam: Soft, Non-Tender (Isis Herman) Integumentary Skin Exam: Clear, Warm (Isis Herman) Extremeties Extremities Exam: No Edema (Isis Herman) Neurologic Neuro Exam: Moving All Extremities, Sedated (Isis Herman) Assessment/Plan Discussed Condition With: Patient Problem List: (1) ESRD (end stage renal disease) on dialysis ICD Codes: N18.6 - End stage renal disease; Z99.2 - Dependence on renal dialysis Status: Chronic Plan: s/p HD 04/16/17 with next HD scheduled 04/18/17 Unfortunately, he is intubated again this AM s/p aspiration and asystole Medications should be adjusted for the patient's ESRD. Avoid gadolinium (2) Hypercalcemia associated with chronic dialysis ICD Codes: E83.52 - Hypercalcemia Status: Chronic Plan: Patient has a history of previous hypercalcemia which was evaluated for and no specific etiology determined. 2.0 calcium bath ordered Pending Calcitriol level (3) Anemia of renal disease ICD Codes: D63.1 - Anemia in chronic kidney disease Status: Chronic Plan: Receiving Venofer infusion today (4) Epistaxis ICD Codes: R04.0 - Epistaxis Status: Resolved (5) Coumadin toxicity ICD Codes: T45.511A - Poisoning by anticoagulants, accidental (unintentional), initial encounter Status: Resolved Plan: Defer anticoagulation management to primary care physician. (6) HTN (hypertension) ICD Codes: I10 - Essential (primary) hypertension Status: Chronic (Isis Herman) Plan The exam, history, and the medical decision-making described in the above note were completed with the assistance of the LISA. I reviewed and agree with the findings presented. (Danita Maria MD) Isis Herman Apr 17, 2017 12:34 Danita Maria MD Apr 20, 2017 17:38
[2017-04-17] MEDS: MIDAZOLAM 100 MG/100 ML INJ 100 ML IV PRN (13:03)
[2017-04-17] MEDS ORDERED: TERBUTALINE INJ 1 MG/ML AMP SQ PRN (13:15)
--- NOTE | 2017-04-17 13:18 | RADRPT ---
EXAM DATE/TIME: 04/17/2017 10:58 [facility] COMPARISON: CHEST SINGLE AP, April 17, 2017, 9:59. INDICATIONS : S/P bronchoscopy and OG tube placement. MEDICAL HISTORY : Hypertension. Stage III renal failure SURGICAL HISTORY : None. ENCOUNTER: Initial ACUITY: 1 day PAIN SCORE: Non-responsive. LOCATION: Bilateral chest FINDINGS: The cardiac silhouette is enlarged in transverse diameter. There is no evidence of pneumothorax. Sup port lines and tubes are in satisfactory position. There is bilateral lower lobe atelectasis versus p neumonia. A moderate size right sided effusion is present. CONCLUSION: 1. There is no evidence of pneumothorax. 2. Worsening left lower lobe atelectasis versus pneumonia Michael Bhatt MD on April 17, 2017 at 13:15 Board Certified Radiologist. This report was verified electronically.
[2017-04-17] MEDS: ARTIFICIAL TEARS OPTH SOLN 15 ML BTL EACH EYE SCH ×2 (14:00→22:00)
[2017-04-17] MEDS: AZITHROMYCIN INJ 500 MG in SODIUM CHLOR 0.9% 250 ML INJ 250 ML IV SCH (14:47)
[2017-04-17] MEDS: RESP: ALBUTEROL 2.5 MG/IPRATROPIUM 0.5 MG NEB (SCH) NEB ×2 (15:28→20:15)
[2017-04-17] MEDS: RESP: SODIUM CHLORIDE 3% 4 ML NEB NEB SCH ×2 (15:28→20:16)
[2017-04-17] MEDS ORDERED: EPINEPHrine HCL (1:10,000) 1 MG/10 ML SYRINGE IV ONE (15:39)
--- NOTE | 2017-04-17 16:51 | RADRPT ---
EXAM DATE/TIME: 04/17/2017 16:21 [facility] COMPARISON: MRI BRAIN W/O CONTRAST, July 01, 2016, 11:24. INDICATIONS : Confusion. MEDICAL HISTORY : Renal failure, chronic. SURGICAL HISTORY : Splenectomy. Appendectomy. Inguinal hernia repair. ENCOUNTER: Initial ACUITY: 7-11 months PAIN SCORE: 0/10 LOCATION: cranial TECHNIQUE: Multiplanar, multisequence MRI of the brain was performed without contrast. FINDINGS: There is no evidence of acute cortical infarction, acute hemorrhage, mass effect or midline shift. Th e ventricles are enlarged out of proportion to the sulcal atrophy. In addition the third ventricle is somewhat prominent. Clinical correlation would be helpful in regards to the possibility of normal pr essure hydrocephalus. Diffusion weighted imaging demonstrates no abnormality. CONCLUSION: 1. Possible normal pressure hydrocephalus. Correlation with clinical findings is necessary. 2. No evidence of acute intracranial pathology. No masses are identified. Michael Bhatt MD on April 17, 2017 at 16:46 Board Certified Radiologist. This report was verified electronically.
[2017-04-17] MEDS ORDERED: PHYTONADIONE INJ 10 MG in SODIUM CHLORIDE 0.9% INJ 50 ML IV ONE (17:00)
[2017-04-17] MEDS: DOCUSATE SODIUM 100 MG/10 ML UDC PO SCH (20:24)
[2017-04-17] MEDS: ATORVASTATIN 10 MG TAB PO SCH (20:25)
[2017-04-17] MEDS: SENNOSIDES SYRUP 8.8 MG/5 ML CUP PO SCH (20:25)
[2017-04-17 23:41] LABS: BICARBONATE 27.8 MEQ/L (21.0-32.0); CALCIUM 10.5 MG/DL (8.5-10.1); CREATININE 4.22 MG/DL (0.60-1.30); MAGNESIUM 2.2 MG/DL (1.5-2.5); PHOSPHORUS 5.7 MG/DL (2.5-4.9); TROPONIN I 0.39 NG/ML (0.02-0.05)
[2017-04-18] VITALS (21 sets, daily range): BP systolic 122–167; BP diastolic 58–72; PULSE 42–85; RESP 15; TEMP 97.6–98.9; O2SAT 93–100
[2017-04-18] MEDS: RESP: SODIUM CHLORIDE 3% 4 ML NEB NEB SCH ×4 (03:13→19:51)
[2017-04-18] MEDS: RESP: ALBUTEROL 2.5 MG/IPRATROPIUM 0.5 MG NEB (SCH) NEB ×4 (03:13→19:51)
[2017-04-18] MEDS: CHLORHEXIDINE GLUCONATE 2 % 1 PACK (2 CLOTHS) TOP SCH (04:00)
[2017-04-18] MEDS: MIDAZOLAM 100 MG/100 ML INJ 100 ML IV PRN (04:06)
[2017-04-18] MEDS: SODIUM CHLOR 0.9% 1000 ML INJ 1,000 ML IV SCH ×2 (04:06→22:15)
--- NOTE | 2017-04-18 05:24 | RADRPT ---
EXAM DATE/TIME: 04/18/2017 04:17 [facility] COMPARISON: CHEST SINGLE AP, April 17, 2017, 10:58. INDICATIONS : Evaluate for Pneumonia MEDICAL HISTORY : Hypertension. Stage 3 Renal disease SURGICAL HISTORY : None. ENCOUNTER: Subsequent ACUITY: 2 weeks PAIN SCORE: Non-responsive. LOCATION: Bilateral chest FINDINGS: The cardiac silhouette is enlarged in transverse diameter. There is right lower lobe atelectasis vers us pneumonia. A moderate size right sided effusion is present. Support lines and tubes are in satisfa ctory position. CONCLUSION: 1. Right lower lobe atelectasis versus pneumonia. There has been no significant change when compared to the prior exam. Michael Bhatt MD on April 18, 2017 at 5:22 Board Certified Radiologist. This report was verified electronically.
[2017-04-18 06:16] LABS: HEMATOCRIT 25.7 % (39.0-51.0); HEMOGLOBIN 8.1 GM/DL (13.0-17.0); MEAN CELL VOLUME 98.6 FL (80.0-100.0); MEAN CORPUSCULAR HEMOGLOBIN 31.2 PG (27.0-34.0); MEAN CORPUSCULAR HGB CONC 31.7 % (32.0-36.0); MEAN PLATELET VOLUME 7.8 FL (7.0-11.0); PLATELET COUNT 424 TH/MM3 (150-450); RED BLOOD COUNT 2.61 MIL/MM3 (4.50-5.90); RED CELL DISTRIBUTION WIDTH 14.7 % (11.6-17.2); WHITE BLOOD COUNT 15.2 TH/MM3 (4.0-11.0)
[2017-04-18 06:38] LABS: ALBUMIN 1.9 GM/DL (3.4-5.0); AST (GOT) 20 U/L (15-37); BICARBONATE 24.2 MEQ/L (21.0-32.0); BLOOD UREA NITROGEN 61 MG/DL (7-18); CALCIUM 10.3 MG/DL (8.5-10.1); CHLORIDE 103 MEQ/L (98-107); CREATININE 4.31 MG/DL (0.60-1.30); GLUCOSE,RANDOM 174 MG/DL (74-106); MAGNESIUM 2.2 MG/DL (1.5-2.5); SODIUM (NA) 143 MEQ/L (136-145)
[2017-04-18] MEDS: ARTIFICIAL TEARS OPTH SOLN 15 ML BTL EACH EYE SCH ×3 (06:38→21:45)
[2017-04-18 06:43] LABS: ALKALINE PHOSPHATASE 157 U/L (45-117); ALT (GPT) 14 U/L (12-78); LIPASE 1743 U/L (73-393); PHOSPHORUS 5.2 MG/DL (2.5-4.9); TOTAL BILIRUBIN ADULT 1.2 MG/DL (0.2-1.0); TOTAL PROTEIN 5.9 GM/DL (6.4-8.2); TROPONIN I 0.37 NG/ML (0.02-0.05)
[2017-04-18] MEDS: CHLORHEXIDINE 0.12% (ORAL KIT) 15 ML CUP MT SCH ×2 (08:00→20:00)
[2017-04-18] MEDS: SEVELAMER CARBONATE 800 MG TAB PO SCH ×3 (08:00→15:57)
[2017-04-18 08:15] LABS: INTERNATIONAL NORMALIZED RATIO 1.5 RATIO; PROTHROMBIN TIME - PATIENT 14.7 SEC (9.8-11.6)
[2017-04-18] MEDS: SODIUM CHLORIDE 0.9% FLUSH 10 ML FLUSH IV FLUSH SCH ×3 (08:15→20:25)
[2017-04-18] MEDS: hydrALAZINE HCL 25 MG TAB PO SCH ×3 (08:15→17:58)
[2017-04-18] MEDS: TAMSULOSIN HCL 0.4 MG CAP PO SCH (08:16)
[2017-04-18] MEDS: FINASTERIDE 5 MG TAB PO SCH (08:16)
[2017-04-18] MEDS: FUROSEMIDE 40 MG TAB PO SCH ×2 (08:16→17:51)
[2017-04-18 08:17] LABS: BANDS 1 % (0-6); BURR CELLS 1+ (NORMAL); CORRECTED NUCLEATED RBC 13 /100 WBC (0-0); LYMPHOCYTES 7 % (9-44); MONOCYTES 4 % (0-8); NEUTROPHIL # MANUAL DIFF 12.9 TH/MM3 (1.8-7.7); NUCLEATED RED BLOOD CELL 13 (0-0); OVALOCYTES 1+ (NORMAL); POLYCHROMASIA 2.1 % (0.0-1.9); POLYS (SEG NEUTROPHILS) 84 % (16-70)
[2017-04-18] MEDS: PIPERACIL-TAZO 2.25 GM PREMIX 50 ML IV SCH ×2 (08:24→19:25)
[2017-04-18] MEDS: PANTOPRAZOLE SODIUM 40 MG VIAL IV PUSH SCH ×2 (08:24→20:25)
[2017-04-18] MEDS: GABAPENTIN 100 MG CAP PO SCH ×3 (08:24→17:57)
[2017-04-18] MEDS: DOCUSATE SODIUM 100 MG/10 ML UDC PO SCH ×2 (08:25→20:25)
[2017-04-18] MEDS: DOCUSATE SODIUM 50 MG/SENNA 8.6 MG TAB PO SCH ×2 (08:25→20:25)
[2017-04-18] MEDS: SENNOSIDES SYRUP 8.8 MG/5 ML CUP PO SCH ×2 (08:25→20:25)
--- NOTE | 2017-04-18 09:41 | RADRPT ---
EXAM DATE/TIME: 04/18/2017 08:08 [facility] COMPARISON: No previous studies available for comparison. INDICATIONS : Bilateral leg swelling. MEDICAL HISTORY : Hypercholesterolemia. Hypertension. Atrial fibrillation. Gastritis. GERD. Renal disease and failure. Scoliosis. Torn left rotator cuff. Diabetes. Anticoagulant therapy, Heparin. SURGICAL HISTORY : Splenectomy.Appendectomy. Bilateral cataract surgery. Left hernia repair. Peritoneal dialysis and hem odialysis. Right forearm plate. Right rotator cuff surgery. AV fistula revised. Blood transfusions. ENCOUNTER: Initial ACUITY: 1 day PAIN SCORE: Non-responsive LOCATION: Bilateral leg. TECHNIQUE: Venous ultrasound of the left and right leg was performed from the inguinal ligament to the proximal calf. Real-time, color Doppler and spectral tracing, compression and augmentation techniques were us ed. FINDINGS: RIGHT LEG: There is normal compressibility of the deep venous system from the inguinal region to the proximal ca lf. No echogenic clot is seen in the lumen of the common femoral, femoral, popliteal, and posterior tibial veins. There is a normal response of the venous system to proximal and distal augmentation an d respiration. LEFT LEG: There is normal compressibility of the deep venous system from the inguinal region to the proximal ca lf. No echogenic clot is seen in the lumen of the common femoral, femoral, popliteal, and posterior tibial veins. There is a normal response of the venous system to proximal and distal augmentation an d respiration. CONCLUSION: 1. No sonographic evidence for lower extremity DVT. Cristobal Simpson MD on April 18, 2017 at 9:38 Board Certified Radiologist. This report was verified electronically.
[2017-04-18 09:50] LABS: ALB/GLOB RATIO (SPE) 1.18 (1.39-2.23)
--- NOTE | 2017-04-18 10:00 | HHI.CCPN ---
Subjective Remarks/Hospital Course 76 y/o man developed a persistent nose bleed this morning after dialysis. In ED his INR was > 13 and he received Kcentra for warfarin reversal (permanent a-fib) . Due to airway problems from blood and hypovolemia he sustained a brief cardiopulmonary arrest in the [place] ED requiring intubation and ventilation. He was aggressively resuscitated by the staff at [facility] and transferred to [facility] for ongoing resuscitation. He arrived to the [facility] with BP 52/25 and pulse rate 44. Two units of type specific blood were administered and levophed initiated at 20 mics/min. A central line was placed revealing CVP < 5 while on positive pressure ventilation. Resuscitation is continuing. 04/11/17: Currently epistaxis is controlled. Patient is off Levophed, hypertensive. PRN hydralazine added. Patient continues to have coffee-ground output from the NG tube large amount. INR is 2.8 have added FFP 2 units and vitamin K stat. Repeat CBC and INR stat 04/12/17: Remains intubated but wakes up easily follows commands. Left upper extremity weaker. INR was 3.3 yesterday received 2 units FFP and vitamin K repeat INR pending. No further epistaxis and NGT output minimal 04/13/17: Extubated yesterday tolerating well. Blood cultures 4 out of 4 bottles positive for coag negative staph. ID consulted 2-D echo ordered. No further epistaxis reported. refused EGD 04/14/17: Protecting airway. Overnight it solutions sales consultant was called for stridor- appear to be upper airway conducted sounds. Intermittent confusion, but on my exam AOx3 04/15/17: More lethargic today, but wakes up and follows commands. Received morphine 2 mg at 8 AM. Getting hemodialysis today. Will reduce Morphine from 2 to 1 mg. Also WBC count is elevated, to 20.7 04/16/17: Patient remains lethargic encephalopathy, but wakes up remains oriented to person and place. WBC count slightly further elevated to 21.6. Currently on vancomycin and Zosyn. Azithromycin added by infectious diseases have changed to IV. Repeat swallow eval 04/17: Patient went to acute respiratory arrest likely secondary to hypoxia etiology likely aspiration. Please see CPR note. Copious amounts of brownish secretions for ET tube and central line placed emergently. Attempts to contact Aylin Avila [phone] unsuccessful Subjective 04/18: Afebrile. FiO2 down to 40%. Continues with some bloody secretions. ET tube. Tolerating tube feeds. Positive BM. requesting palliative care consultation. Objective Vital Signs Date Time Temp Pulse Resp B/P (MAP) Pulse Ox O2 Delivery O2 Flow Rate FiO2 04/18/17 08:42 100 40 04/18/17 08:00 97.9 65 15 134/65 (88) 04/18/17 07:00 Mechanical Ventilator 04/17/17 08:16 15.00 Intake and Output 04/18/17 04/18/17 04/19/17 08:00 16:00 00:00 Intake Total 1197 ml Output Total 0 ml Balance 1197 ml Result Diagram: 04/18/175 04/18/17444 Other Results Microbiology Date/Time Source Procedure Growth Status 04/14/17 09:38 Blood Peripheral Aerobic Blood Culture - Preliminary NO GROWTH IN 3 DAYS Resulted 04/14/17 09:38 Blood Peripheral Anaerobic Blood Culture - Preliminary NO GROWTH IN 3 DAYS Resulted 04/17/17 11:01 Bronchial Washings Right Mid Lobe Fungal Smear - Final NO FUNGAL ELEMENTS SEEN. Resulted 04/17/17 11:01 Bronchial Washings Right Mid Lobe Fungal Culture Pending Resulted 04/12/17 05:58 Urine Catheterized Urine Urine Culture - Final NO GROWTH IN 48 HOURS. Complete Imaging Last Impressions Lower Extremity Ultrasound 04/18/17 06 Signed Impressions: Service Date/Time: Tuesday, April 18, 2017 08:08 - CONCLUSION: 1. No sonographic evidence for lower extremity DVT. Cristobal Simpson MD Chest X-Ray 04/18/17 06 Signed Impressions: Service Date/Time: Tuesday, April 18, 2017 04:17 - CONCLUSION: 1. Right lower lobe atelectasis versus pneumonia. There has been no significant change when compared to the prior exam. Michael Bhatt MD Brain MRI 04/17/17 0000 Signed Impressions: Service Date/Time: Monday, April 17, 2017 16:21 - CONCLUSION: 1. Possible normal pressure hydrocephalus. Correlation with clinical findings is necessary. 2. No evidence of acute intracranial pathology. No masses are identified. Michael Bhatt MD Upper Extremity Ultrasound 04/14/17 0000 Signed Impressions: Service Date/Time: April 10:28 - CONCLUSION: Thrombus is identified within distal cephalic vein. Scottie Donovan MD Head CT 04/12/17 0000 Signed Impressions: Service Date/Time: Wednesday, April 12, 2017 16:08 - CONCLUSION: Chronic changes without hemorrhage mass effect. Scottie Donovan MD Objective Remarks Gen: 76-year-old male, critically ill currently resting in bed orotracheally intubated ENT: No epistaxis. Oropharynx with dried secretions. No oropharyngeal edema. Neck: Supple, no JVD. Left IJ is clean dry and intact Lungs: Chest bilaterally. Coarse rhonchi. No wheezing Heart: Irreg Irreg, 3/6 THIERRY, LSB. Neck veins not distended. Abdomen: Nondistended, quiet. No guarding. Multiple well-healed surgical scars Extremities: Cool and pale. Neuro: Radial nerves II through XII grossly intact. Moves all 4 extremity spontaneously/withdraws to noxious stimuli. Vascular Central Line Catheter: Yes Assessment to: Continue Date of Insertion: Apr 17, 2017 Line: Central Venous Catheter Location: Internal, Jugular A/P Assessment and Plan Neuro/Psych: Acute toxic metabolic encephalopathy secondary to sepsis Bilateral cataracts [place] Currently on midazolam at 2 mg an hour/fentanyl drip at 50 an hour drips for sedation/analgesia while intubated Goal of RA SS -1 Daily sedation vacation Continue gabapentin 100 mg 3 times a day/home medication for neuropathy - Metabolic encephalopathy most likely secondary to sepsis, worsening now - CT head on admission revealed no acute intracranial findings. Chronic changes - Weakness of left upper extremity most likely related to arthritis and rotator cuff tendinitis- - MRI brain 04/17 revealed possible normal pressure hydrocephalus. Respiratory Acute hypoxic respiratory failure likely secondary to aspiration PRVC 15/550/1/5/100 Ventilator bundle Albuterol/ipratropium aerosols every 6 hours with albuterol aerosols every 2 hours. Dyspnea Spontaneous breathing trials when clinically indicated Follow-up chest x-ray revealed likely mucus plugging right main bronchus below the right upper lobe. Bronchoscopy performed revealed externally frontal mucosa. Thick brown/bloody Mucous plugging right bronchus distal to right upper lobe. - Extubated 04/12 protecting airway - reintubated 04/17 CV PEA secondary to respiratory arrest secondary to aspiration resolved Atrial fibrillation Hypotension Dyslipidemia Currently off all vasopressors 2-D echocardiogram revealed EF 60-65%. Right atrium mildly dilated. Moderate MR/TR. PAP 50-60 mmHg Troponin peaked at 0.39. Currently 0.36 Remains in atrial fibrillation/flutter rates between 40 and 80 Currently on atorvastatin 10 mg daily/40 mg daily at home for dyslipidemia Currently Lasix 40 mg twice a day Currently hydralazine 75 mg every 8 hours. Hold while patient is hypotensive GI Gastroesophageal reflux disease History of splenectomy -Initiate trickle feeds with Nepro 20 cc now. 40 cc an hour -Pantoprazole 40 mg IV twice a day -Docusate sodium/senna twice daily. BPH End-stage renal disease - hemodialysis Tuesday/Tuesday/Tuesday - Monitor UO. ESRD on HD, getting hemodialysis today - Renal - Dr. Maria Continue tamsulosin 0.4 mg daily and finasteride 5 mill grams daily Maintain He Heme Epistaxis-resolved - Dr. Stewart followed Warfarin coagulopathy/toxicity - resolved Warfarin coagulopathy resolved post- Kcentra and DDAVP and 2U FFP and 10 mg vitamin K 04/11 Left cephalic vein superficial thrombosis Leukocytosis Normocytic anemia - admission with acute blood loss anemia Thrombocytosis Monitor CBC daily. Follow trends Currently with superficial thrombosis/no DVT prophylaxis or resumption of warfarin due to high risk of bleeding Follow-up on coags were elevated at 2.6 his Hernandez received vitamin K 10 mg IV and FFP 2 units. Recheck in a.m. ID: Staph epi bacteremia - 4 out of 4 bottles staph epi bacteremia-source probably dialysis access. Repeat blood culture 04/13 negative - 2-D echo- no vegetation. ID consult appreciated - Continue IV vancomycin, continue azithromycin stop date 04/20 and piperacillin/ tazobactam stop date 04/18 - Repeat sputum culture FEN: Hypercalcemia Hyperphosphatemia Check PTH - elevated at 325 and calcitriol levels. Vitamin D levels 25 normal. 05/05 pending. Sevelamer 800 mg 3 times a day for hyperphosphatemia Replace electrolytes as clinically indicated Current normal saline at 84 cc an hour Lines - Left SCV CVL 04/10-DCd? - Left IJ CVL 04/17 Critical care time 35 minutes Avinash Cantu MD Apr 18, 2017 10:00
[2017-04-18] MEDS ORDERED: DIATRIZOATE MEGLUM/DIATRIZOATE SOD 9 ML CUP PO ONE (10:45)
[2017-04-18] MEDS ORDERED: PHYTONADIONE 2.5 MG/SWFI 2.5 ML ORAL SYR PO ONE (10:45)
--- NOTE | 2017-04-18 11:00 | HHI.NPPN ---
Subjective History of Present Illness 76-year-old male with a history of end-stage renal disease on maintenance hemodialysis generally Tuesday and Tuesday however he was dialyzed last Tuesday secondary to the holiday. Subsequently developed epistaxis and presented to the emergency room with hypotension and his INR was said to be greater than 13. Patient was on Coumadin apparently for atrial fibrillation. According to the records patient subsequently required cardiopulmonary resuscitation and was intubated. Interval History Unfortunately the patient apparently developed a mucous plug and is intubated on ventilatory support. is requesting opinion from palliative care. Review of Systems General General Remarks Unable to obtain Objective Data Data Vital Signs Date Time Temp Pulse Resp B/P (MAP) Pulse Ox O2 Delivery O2 Flow Rate FiO2 04/18/17 10:00 59 04/18/17 08:42 100 40 04/18/17 08:00 97.9 65 15 134/65 (88) 100 04/18/17 08:00 59 04/18/17 08:00 50 04/18/17 07:00 100 Mechanical Ventilator 50 04/18/17 06:00 48 04/18/17 04:19 100 50 04/18/17 04:00 97.9 56 15 122/59 (80) 100 04/18/17 04:00 56 04/18/17 04:00 50 04/18/17 02:00 42 04/18/17 01:09 96 50 04/18/17 00:00 54 04/18/17 00:00 50 04/18/17 00:00 98.1 54 15 167/72 (103) 95 04/17/17 23:04 49 155/70 04/17/17 22:38 48 103/53 04/17/17 22:35 97 50 04/17/17 22:00 57 04/17/17 20:24 181/81 04/17/17 20:09 96 50 04/17/17 20:03 97.9 52 15 159/72 96 04/17/17 20:00 50 04/17/17 20:00 54 04/17/17 20:00 97.9 54 15 159/72 (101) 96 04/17/17 19:48 176/78 04/17/17 19:43 97.8 59 15 158/74 97 04/17/17 19:00 97 Mechanical Ventilator 50 04/17/17 18:52 97.7 62 15 133/63 98 04/17/17 18:36 98.4 60 15 120/59 97 04/17/17 18:00 61 04/17/17 16:05 100 100 04/17/17 16:00 98.6 58 15 123/59 (80) 100 04/17/17 16:00 58 04/17/17 16:00 50 04/17/17 15:28 100 50 04/17/17 15:07 58 154/69 04/17/17 14:42 63 155/70 04/17/17 14:14 50 04/17/17 14:00 64 04/17/17 12:00 57 04/17/17 12:00 97.7 57 15 119/56 (77) 98 -: 04/18/17 0445 04/18/17 0445 Microbiology 04/17/17 Fungal Smear - Final, Resulted NO FUNGAL ELEMENTS SEEN. 04/17/17 Fungal Culture, Resulted Pending 04/17/17 Acid Fast Stain, Received Pending 04/17/17 Mycobacterial Culture, Received Pending 04/17/17 Gram Stain - Final, Resulted 04/17/17 Bronchial Culture, Resulted Pending Physical Exam General Appearance: No Acute Distress, Comfortable Pulmonary Resp Exam: Clear Bilaterally, Breath Sounds Equal Cardiology CV Exam: Regular, Normal Sinus Rhythm Gastrointestinal/Abdomen GI Exam: Soft, Non-Tender Integumentary Skin Exam: Clear, Warm Extremeties Extremities Exam: No Edema Neurologic Neuro Exam: Moving All Extremities, Sedated Assessment/Plan Discussed Condition With: Patient Problem List: (1) ESRD (end stage renal disease) on dialysis ICD Codes: N18.6 - End stage renal disease; Z99.2 - Dependence on renal dialysis Status: Chronic Plan: Respiratory insufficiency secondary to right mucous plug status post bronchoscopy. Patient still on the ventilator and intubated. Hemodialysis today as scheduled. Volume status has improved. Patient as a history of debilitation and marginal nutritional status but was making some improvement until this acute episode. Uncertain in regard to patient's ability to be rehabilitated to a significant degree at this point in time. Await palliative care consultation. Medications should be adjusted for the patient's ESRD. Avoid gadolinium (2) Hypercalcemia associated with chronic dialysis ICD Codes: E83.52 - Hypercalcemia Status: Chronic Plan: Patient has a history of previous hypercalcemia which was evaluated for and no specific etiology determined. 2.0 calcium bath ordered Pending Calcitriol level (3) Anemia of renal disease ICD Codes: D63.1 - Anemia in chronic kidney disease Status: Chronic Plan: Receiving Venofer infusion today (4) Epistaxis ICD Codes: R04.0 - Epistaxis Status: Resolved (5) Coumadin toxicity ICD Codes: T45.511A - Poisoning by anticoagulants, accidental (unintentional), initial encounter Status: Resolved Plan: Defer anticoagulation management to primary care physician. (6) HTN (hypertension) ICD Codes: I10 - Essential (primary) hypertension Status: Chronic Danita Maria MD Apr 18, 2017 11:00
--- NOTE | 2017-04-18 12:50 | PD.CONS ---
Consult Service Palliative Care . Consult Requested By Dr. Cantu . Primary Care Physician Nikolai Carrasquillo M.D. . Reason for Consultation a. To assist with evaluation and management of symptoms including: Debility , encephalopathy, pain b. To assist medical decision maker(s) with: better understanding of current medical conditions; weighing benefits/burdens of medical treatment options; making medical treatment decisions. HPI History of Present Illness Mr. Avila is a 76-year-old male who presented to [facility] ED on 2016 with a nosebleed. Past medical history is significant for atrial fibrillation, CAD, diabetes-type 2, hyperlipidemia, PVD, mitral valve regurgitation, GERD, scoliosis and previous left renal cell carcinoma s/p cryo- ablation in 2014. She has end-stage renal disease requiring hemodialysis. 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 Maria. He had HD earlier that morning. After returning home, he developed a nosebleed; his reported the bleeding was bright red, brisk and covered several towels. Patient is on Coumadin. He takes acetaminophen due to osteoarthritis, denies ibuprofen use. The patient was awake , alert, oriented and able to communicate verbally upon arrival to the ED, however he quickly decompensated. Patient's lab work was was concerning for an H/H of 6.7/20.1 and an INR of 13.9. Patient administered K Centra and DDAVP. After speaking with the patient 's , the patient was emergently intubated. Heart rate went down into the 50s and then asystole; CPR was initiated and 1 mg epinephrine administered with ROSC after 2 minutes. The on-call ENT physician, Dr. Stewart, agreed with transfer to [facility] where he would evaluate the patient. He arrived to the intensive care unit at the [facility] intensive with a blood pressure of 52/25 and pulse rate 44. Two units of PRBCs were administered and Levophed was initiated at 20 mics/min. Additional diagnostic data: * PT: 138.3, INR 13.9, APTT 86.4 * Sodium: 136, potassium 4.4, chloride 99, carbon dioxide 23.6, glucose 170, calcium 9.1, magnesium 2.2 * BUN: 28, creatinine 2.20, GFR 29 * Total bilirubin: 0.9, AST 44, ALT 36, alkaline phosphatase 350 * Troponin: 0.07 * Total protein: 7.3, albumin 2.4 * Chest x-ray revealed questionable left lung base consolidation Dr. Stewart (ENT) was consulted secondary to epistaxis and Coumadin toxicity. Intubated with left nasal pack in place; having minor oozing. Patient continues to have coffee-ground output from the NG tube large amount. Transfused with 2 units of FFP for INR of 2.8 and administered vitamin K. Gastroenterology and nephrology were consulted. Patient was extubated on 04/13/[address] of the head on 04/12/2017 revealed chronic changes with no hemorrhage mass effect; follow-up chest x-ray showing worsening bibasilar infiltrates. Ultrasound of the left upper extremity showed a thrombus in the distal cephalic vein No further epistaxis reported; refusing EGD. Febrile. WBC elevated at 16.6. Blood cultures growing coagulase negative staph. Echocardiogram with EF 60-65%, no vegetation. Infectious disease was consulted; patient was started on Zosyn and vancomycin with dialysis. A follow-up chest x-ray on 04/16/2017 showing persistent bilateral lower lung zone consolidation. Azithromycin was added for additional pulmonary coverage. Patient became bradycardic going into asystole secondary to respiratory failure , likely aspiration. Copious amounts of brownish secretions from ETT. CPR was initiated with chest compressions and administration of 1 mg epinephrine. ROSC after 4 minutes; requiring pressor support. A bronchoscopy performed revealed thick brown/bloody mucus plugging in the right bronchus distal to the right upper lobe. Pathology pending. Palliative Care was consulted to assist with symptom management and to discuss with the family the benefits and burdens of his current illnesses and the options regarding future care. . Function/Cognitive Trajectory Patient as a history of debilitation and marginal nutritional status but was making some improvement until this acute episode. Uncertain in regard to patient 's ability to be rehabilitated to a significant degree at this point in time. . Review of Systems ROS Limitations: Clinical Condition, Intubated, Altered Mental Status Constitutional: COMPLAINS OF: Fatigue, Weight loss (15 pound weight loss reported in the past 3 months.), Change in appetite (poor), Generalized weakness Ears, nose, mouth, throat: COMPLAINS OF: Epistaxis (on admission) Hematologic/Lymphatics: COMPLAINS OF: History of transfusions Neurologic: COMPLAINS OF: Localized weakness (left-sided) Psychiatric: COMPLAINS OF: Confusion Past Family Social History Coded Allergies: No Known Allergies (Verified Allergy, Unknown, 04/10/17) Past Medical History Atrial fibrillation CAD Diabetes, type II Hyperlipidemia GERD Scoliosis ESRD Previous left renal cell carcinoma status post cryoablation in 2014 . Past Surgical History Splenectomy AV fistula Cataracts repair EGD/colonoscopy 04/17/[address] Baker --> slight erythema at the GE junction, hiatal hernia, unremarkable colonoscopy although there was some residual stool Prostate biopsy Inguinal hernia repair . Reported Medications Gabapentin 100 Mg Cap 100 Mg PO TID Lasix (Furosemide) 80 Mg Tab 40 Mg PO BID rx for 80 mg bid but pt is only taking 40mg bid Hydralazine HCl 25 Mg Tablet 75 Mg PO TID Centrum Silver Adult 50+ (Multiple Vitamins W/ Minerals) 1 Tab Tab 1 Tab PO DAILY Flomax (Tamsulosin HCl) 0.4 Mg Cap 0.4 Mg PO DAILY Fluticasone Nasal [place] 50 Mcg/Act Naspr 50 Mcg EACH NARE DAILY 50 mcg/spray Proscar (Finasteride) 5 Mg Tab 5 Mg PO DAILY Do not crush. Lipitor (Atorvastatin Calcium) 10 Mg Tab 10 Mg PO HS . Current Medications Medications (Trade) Dose Ordered Sig/Terra Route Start Time Stop Time Status Last Admin (Lipitor) 10 mg HS PO 04/10/17 21:00 04/17/17 20:25 (Proscar) 5 mg DAILY PO 04/11/17 09:00 04/12/17 08:04 (Lasix) 40 mg BID@0900,1800 PO 04/10/17 18:00 04/12/17 08:08 (Neurontin) 100 mg TID PO 04/10/17 18:00 04/18/17 08:24 (Apresoline) 75 mg TID PO 04/10/17 18:00 04/16/17 17:42 (Flomax) 0.4 mg DAILY PO 04/11/17 09:00 04/12/17 08:04 (NS Flush) 2 ml UNSCH PRN IV FLUSH 04/10/17 16:45 (NS Flush) 2 ml BID IV FLUSH 04/10/17 21:00 04/17/17 20:25 (Tylenol) 650 mg Q6H PRN PO 04/10/17 16:45 (Zofran Inj) 4 mg Q6H PRN IV PUSH 04/10/17 16:45 Miscellaneous Information 1 Q361D XX 04/10/17 16:45 04/10/17 16:45 (Chlorhexidine 2% Cloth) Taper DAILY@04 TOP 04/11/17 04:00 04/07/18 03:59 (Chlorhexidine 2% Cloth) 3 pack UNSCH PRN TOP 04/10/17 16:45 (Clarissa-Colace) 1 tab BID PO 04/10/17 21:00 04/12/17 21:00 (Milk Of Magnesia Liq) 30 ml Q12H PRN PO 04/10/17 16:45 (Senokot) 17.2 mg Q12H PRN PO 04/10/17 16:45 (Dulcolax Supp) 10 mg DAILY PRN RECTAL 04/10/17 16:45 (Lactulose Liq) 30 ml DAILY PRN PO 04/10/17 16:45 (Brethine Inj) 1 mg UNSCH PRN SQ 04/10/17 17:30 (Tylenol Supp) 650 mg Q6H PRN RECTAL 04/10/17 18:45 04/11/17 18:43 (Protonix Inj) 40 mg Q12H IV PUSH 04/11/17 21:00 04/18/17 08:24 Sodium Chloride 1,000 ml @ 0 mls/hr Q0M PRN OTHER 04/12/17 11:15 04/13/17 17:00 (Heparin Inj) UNSCH PRN IV FLUSH 04/12/17 11:30 Sodium Chloride 1,000 ml @ 200 mls/hr Q5H PRN IV 04/12/17 11:15 Sodium Chloride 1,000 ml @ 0 mls/hr Q0M PRN OTHER 04/12/17 11:15 (Mannitol Inj) 12.5 gm UNSCH PRN IV 04/12/17 11:15 Albumin Human 100 ml @ 60 mls/hr UNSCH PRN IV 04/12/17 11:30 (NS Flush) 5 ml UNSCH PRN IV FLUSH 04/12/17 11:15 (Gentamicin (Dialysis) Inj) 20 mg UNSCH PRN OTHER 04/12/17 11:30 (Zofran Inj) 4 mg UNSCH PRN IV PUSH 04/12/17 11:30 (Tylenol) 650 mg UNSCH PRN PO 04/12/17 11:30 (Benadryl) 25 mg UNSCH PRN PO 04/12/17 11:30 (Nitrostat Sl) 0.4 mg UNSCH PRN SL 04/12/17 11:30 (Catapres) 0.1 mg UNSCH PRN PO 04/12/17 11:30 04/16/17 20:56 (Epogen Inj) 10,000 units UNSCH PRN IV PUSH 04/12/17 11:30 04/15/17 16:14 (Gelfoam 12 Mm/7 Mm Top) 1 foam UNSCH PRN TOP 04/12/17 11:30 04/15/17 16:15 (Morphine Inj) 1 mg Q4H PRN IV PUSH 04/15/17 14:45 04/16/17 21:41 (Renvela) 800 mg TIDAC PO 04/15/17 17:00 (Apresoline Inj) 10 mg Q1HR PRN IV PUSH 04/15/17 19:30 04/17/17 08:48 (Trandate Inj) 10 mg Q1HR PRN IV PUSH 04/15/17 19:30 04/17/17 02:46 (Nitroglycerin 2% Oint) 2 inch Q6HR PRN TOPICAL 04/15/17 19:30 04/15/17 21:10 Vancomycin HCl 1000 mg/Sodium Chloride 250 ml @ 250 mls/hr WITH DIALYSIS IV 04/16/17 13:45 Azithromycin 500 mg/Sodium Chloride 250 ml @ 250 mls/hr Q24H IV 04/17/17 15:00 04/20/17 14:59 04/17/17 14:47 (Peridex 0.12% Liq) 15 ml BID@08,20 MT 04/17/17 20:00 04/18/17 08:00 Fentanyl Citrate 250 ml @ 5 mls/hr TITRATE PRN IV 04/17/17 09:00 (NS Flush) DAILY IV FLUSH 04/17/17 10:00 04/18/17 08:24 (NS Flush) UNSCH PRN IV FLUSH 04/17/17 10:00 (Tears Naturale Opth Soln) 1 drop Q8HR EACH EYE 04/17/17 14:00 04/18/17 06:38 (Duoneb Neb) 1 ampule Q6HR NEB NEB 04/17/17 16:00 04/18/17 08:42 (Albuterol Neb) 2.5 mg Q2HR NEB PRN NEB 04/17/17 10:30 (Sodium Chloride 3% Neb) 2 ml Q6HR NEB NEB 04/17/17 16:00 04/18/17 08:42 Sodium Chloride 1,000 ml @ 84 mls/hr [id number] IV 04/17/17 10:30 04/18/17 04:06 (Colace Liq) 100 mg Q12HR PO 04/17/17 21:00 04/18/17 08:25 (Senna Liq) 8.8 mg BID PO 04/17/17 21:00 04/18/17 08:25 Midazolam HCl 100 ml @ 2 mls/hr TITRATE PRN IV 04/17/17 12:30 04/18/17 04:06 Norepinephrine Bitartrate 4 mg/ Sodium Chloride 250 ml @ 7.5 mls/hr TITRATE PRN IV 04/17/17 09:31 04/17/17 23:04 (Brethine Inj) 1 mg UNSCH PRN SQ 04/17/17 13:15 Family History Patient's father had a cerebral hemorrhage; patient's mother with coronary artery disease. . Substance Use Tobacco: Remote smoking history, quit in 1958 Alcohol: Rare EtOH consumption Prescription med abuse: None known Illicits: None known . Psychosocial History Patient and his are originally from [place]. This was a second marriage for both of them and they have now been for 40+ years. He has 4 children and 2 stepchildren; when they got just the children's ages range from 2 years to preteens. 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 . Spiritual/Cultural Factors Non- muslim . Living Will: Never completed Health Care Surrogate: Never completed Durable Power of Global Marketing Specialist: Never completed Health Care Surrogate(s): Per [place] statutes, in the absence of written advanced directives healthcare proxy decision-making falls to the patient's . . Documented care wishes: No known documented care wishes have been completed. . Today's verbally stated goals: Patient is encephalopathic, unable to verbalize medical treatment goals at this time. . Family/friends goals: Aggressive goals up to the point of cardiopulmonary resuscitation . Ethical and Legal Issues No known ethical or legal issues at this time. . Physical Exam Vital Signs Date Time Temp Pulse Resp B/P (MAP) Pulse Ox O2 Delivery O2 Flow Rate FiO2 04/18/17 12:00 50 04/18/17 12:00 57 04/18/17 12:00 97.8 57 15 143/65 (91) 95 04/18/17 11:27 98 35 04/18/17 10:00 59 04/18/17 08:42 100 40 04/18/17 08:00 97.9 65 15 134/65 (88) 100 04/18/17 08:00 59 04/18/17 08:00 50 04/18/17 07:00 100 Mechanical Ventilator 50 04/18/17 06:00 48 04/18/17 04:19 100 50 04/18/17 04:00 97.9 56 15 122/59 (80) 100 04/18/17 04:00 56 04/18/17 04:00 50 04/18/17 02:00 42 04/18/17 01:09 96 50 04/18/17 00:00 54 04/18/17 00:00 50 04/18/17 00:00 98.1 54 15 167/72 (103) 95 04/17/17 23:04 49 155/70 04/17/17 22:38 48 103/53 04/17/17 22:35 97 50 04/17/17 22:00 57 04/17/17 20:24 181/81 04/17/17 20:09 96 50 04/17/17 20:03 97.9 52 15 159/72 96 04/17/17 20:00 50 04/17/17 20:00 54 04/17/17 20:00 97.9 54 15 159/72 (101) 96 04/17/17 19:48 176/78 04/17/17 19:43 97.8 59 15 158/74 97 04/17/17 19:00 97 Mechanical Ventilator 50 04/17/17 18:52 97.7 62 15 133/63 98 04/17/17 18:36 98.4 60 15 120/59 97 04/17/17 18:00 61 04/17/17 16:05 100 100 04/17/17 16:00 98.6 58 15 123/59 (80) 100 04/17/17 16:00 58 04/17/17 16:00 50 04/17/17 15:28 100 50 04/17/17 15:07 58 154/69 04/17/17 14:42 63 155/70 04/17/17 14:14 50 04/17/17 14:00 64 . Exam CONSTITUTIONAL/GENERAL: This is a frail appearing, elderly male patient currently intubated on mechanical ventilation TUBES/LINES/DRAINS: CVL, ETT, OGT, PIV x 2, AV fistula, soft restraints SKIN: Ecchymoses on upper extremities. No wounds seen anteriorly. Skin temperature appropriate. Not diaphoretic. HEAD: Atraumatic. Normocephalic. EYES: Pupils equal and round and reactive. No scleral icterus. No injection or drainage. Fundi not examined. ENT: Hearing grossly normal. No epistaxis. Oropharynx with dried secretions. NECK: Trachea midline. CARDIOVASCULAR: Regular rate, Irregular rhythm. Peripheral pulses symmetric. RESPIRATORY/CHEST: Intubated on mechanical ventilation. Coarse air exchange GASTROINTESTINAL: Abdomen soft, non-tender, nondistended. No guarding. Bowel sounds present. GENITOURINARY: Without palpable bladder distension. Receiving hemodialysis. MUSCULOSKELETAL: Extremities without clubbing, cyanosis, or edema. No mottling or clubbing. LYMPHATICS: No palpable cervical or supraclavicular adenopathy. NEUROLOGICAL: Opens eyes to verbal stimuli, attempting to follow simple commands. Patient "wiggles"toes when asked; attempting to give a thumbs up with right hand. PSYCHIATRIC: Unable to assess secondary to patient's clinical condition . Diagnostic Tests Laboratory Laboratory Tests Test 04/16/17 05:54 04/16/17 15:55 04/17/17 04:48 04/17/17 08:35 White Blood Count 21.6 TH/MM3 (4.0-11.0) 19.8 TH/MM3 (4.0-11.0) Red Blood Count 2.77 MIL/MM3 (4.50-5.90) 2.99 MIL/MM3 (4.50-5.90) Hemoglobin 8.8 GM/DL (13.0-17.0) 9.7 GM/DL (13.0-17.0) Hematocrit 27.1 % (39.0-51.0) 29.8 % (39.0-51.0) Mean Corpuscular Volume 98.0 FL (80.0-100.0) 99.8 FL (80.0-100.0) Mean Corpuscular Hemoglobin 31.7 PG (27.0-34.0) 32.5 PG (27.0-34.0) Mean Corpuscular Hemoglobin Concent 32.3 % (32.0-36.0) 32.6 % (32.0-36.0) Red Cell Distribution Width 14.6 % (11.6-17.2) 15.3 % (11.6-17.2) Platelet Count 468 TH/MM3 (150-450) 509 TH/MM3 (150-450) Mean Platelet Volume 7.5 FL (7.0-11.0) 7.9 FL (7.0-11.0) Neutrophils (%) (Auto) 91.9 % (16.0-70.0) 88.2 % (16.0-70.0) Lymphocytes (%) (Auto) 3.0 % (9.0-44.0) 4.6 % (9.0-44.0) Monocytes (%) (Auto) 4.9 % (0.0-8.0) 6.8 % (0.0-8.0) Eosinophils (%) (Auto) 0.0 % (0.0-4.0) 0.2 % (0.0-4.0) Basophils (%) (Auto) 0.2 % (0.0-2.0) 0.2 % (0.0-2.0) Neutrophils # (Auto) 19.8 TH/MM3 (1.8-7.7) 17.5 TH/MM3 (1.8-7.7) Lymphocytes # (Auto) 0.7 TH/MM3 (1.0-4.8) 0.9 TH/MM3 (1.0-4.8) Monocytes # (Auto) 1.0 TH/MM3 (0-0.9) 1.3 TH/MM3 (0-0.9) Eosinophils # (Auto) 0.0 TH/MM3 (0-0.4) 0.0 TH/MM3 (0-0.4) Basophils # (Auto) 0.0 TH/MM3 (0-0.2) 0.0 TH/MM3 (0-0.2) CBC Comment AUTO DIFF AUTO DIFF Differential Total Cells Counted 100 100 Neutrophils % (Manual) 94 % (16-70) 87 % (16-70) Lymphocytes % 3 % (9-44) 4 % (9-44) Monocytes % 2 % (0-8) 4 % (0-8) Neutrophils # (Manual) 20.5 TH/MM3 (1.8-7.7) 18.0 TH/MM3 (1.8-7.7) Myelocytes 1 % (0-0) 4 % (0-0) Nucleated Red Blood Cells 8 /100 WBC (0-0) 19 /100 WBC (0-0) Differential Comment FINAL DIFF MANUAL FINAL DIFF MANUAL Platelet Estimate HIGH (NORMAL) HIGH (NORMAL) Platelet Morphology Comment NORMAL (NORMAL) NORMAL (NORMAL) [place] Bodies PRESENT (NONE SEEN) PRESENT (NONE SEEN) Keratocytes OCC (NORMAL) 1+ (NORMAL) Red Cell Morphology Comment (NORMAL) Blood Urea Nitrogen 48 MG/DL (7-18) 47 MG/DL (7-18) Creatinine 3.69 MG/DL (0.60-1.30) 3.31 MG/DL (0.60-1.30) Random Glucose 85 MG/DL (74-106) 145 MG/DL (74-106) Albumin 2.1 GM/DL (3.4-5.0) 2.3 GM/DL (3.4-5.0) Calcium Level 10.4 MG/DL (8.5-10.1) 11.3 MG/DL (8.5-10.1) Phosphorus Level 5.5 MG/DL (2.5-4.9) Sodium Level 143 MEQ/L (136-145) 141 MEQ/L (136-145) Potassium Level 3.7 MEQ/L (3.5-5.1) 4.0 MEQ/L (3.5-5.1) Chloride Level 100 MEQ/L (98-107) 98 MEQ/L (98-107) Carbon Dioxide Level 29.7 MEQ/L (21.0-32.0) 31.7 MEQ/L (21.0-32.0) Anion Gap 13 MEQ/L (5-15) 11 MEQ/L (5-15) Estimat Glomerular Filtration Rate 16 ML/MIN (>89) 18 ML/MIN (>89) Blood Gas Puncture Site LT RADIAL LT RADIAL Blood Gas Patient Temperature 98.6 98.6 Blood Gas HCO3 29 mmol/L (22-26) 30 mmol/L (22-26) Blood Gas Base Excess 4.9 mmol/L (-2-2) 5.1 mmol/L (-2-2) Blood Gas Oxygen Saturation 96 % (90-100) 90 % (90-100) Arterial Blood pH 7.43 (7.380-7.420) 7.38 (7.380-7.420) Arterial Blood Partial Pressure CO2 45 mmHg (38-42) 52 mmHg (38-42) Arterial Blood Partial Pressure O2 124 mmHg (61-120) 68 mmHg (61-120) Arterial Blood Oxygen Content 17.0 Vol % (12.0-20.0) 14.5 Vol % (12.0-20.0) Arterial Blood Carboxyhemoglobin 1.3 % (0-4) 1.5 % (0-4) Arterial Blood Methemoglobin 1.2 % (0-2) 1.1 % (0-2) Blood Gas Hemoglobin 12.5 G/DL (12.0-16.0) 11.4 G/DL (12.0-16.0) Oxygen Delivery Device NASAL CANNULA Non-Rebreathing Mask Blood Gas Liter Flow 4 L/M 15 L/M Eosinophils % 1 % (0-4) Total Protein 6.9 GM/DL (6.4-8.2) Alkaline Phosphatase 212 U/L (45-117) Aspartate Amino Transf (AST/SGOT) 15 U/L (15-37) Alanine Aminotransferase (ALT/SGPT) 14 U/L (12-78) Total Bilirubin 1.3 MG/DL (0.2-1.0) Test 04/17/17 11:01 04/17/17 11:29 04/17/17 14:01 04/17/17 22:50 White Blood Count 23.8 TH/MM3 (4.0-11.0) Red Blood Count 3.04 MIL/MM3 (4.50-5.90) Hemoglobin 9.7 GM/DL (13.0-17.0) Hematocrit 30.3 % (39.0-51.0) Mean Corpuscular Volume 99.7 FL (80.0-100.0) Mean Corpuscular Hemoglobin 31.8 PG (27.0-34.0) Mean Corpuscular Hemoglobin Concent 31.9 % (32.0-36.0) Red Cell Distribution Width 15.1 % (11.6-17.2) Platelet Count 508 TH/MM3 (150-450) Mean Platelet Volume 8.0 FL (7.0-11.0) Prothrombin Time 26.7 SEC (9.8-11.6) Prothromb Time International Ratio 2.6 RATIO Activated Partial Thromboplast Time 38.5 SEC (24.3-30.1) Bronchial Fluid Other Cells 2 % Bronchoalveolar Lavage WBC 2750514 /MM3 Bronchoalveolar Lavage RBC 5500 /MM3 Bronchoalveolar Lavage Neutrophils 90 % Bronchoalveolar Lavage Lymphocytes 6 % Bronchoalveolar Lavage Histiocytes 2 % Bronchoalveolar Lavage Diff Comment Lavage Fluid Total Volume 27.0 ML Lavage Fluid Total WBC Count 67.500 MILLION (4.700-7.100) Troponin I 0.36 NG/ML (0.02-0.05) 0.39 NG/ML (0.02-0.05) 25-Hydroxy Vitamin D Total 73.6 ng/ML (30-100) Parathyroid Hormone (Intact) 325.5 PG/ML (12.4-76.8) Blood Gas Puncture Site LT RADIAL Blood Gas Patient Temperature 98.6 Blood Gas HCO3 25 mmol/L (22-26) Blood Gas Base Excess 1.8 mmol/L (-2-2) Blood Gas Oxygen Saturation 98 % (90-100) Arterial Blood pH 7.50 (7.380-7.420) Arterial Blood Partial Pressure CO2 32 mmHg (38-42) Arterial Blood Partial Pressure O2 300 mmHg (61-120) Arterial Blood Oxygen Content 16.9 Vol % (12.0-20.0) Arterial Blood Carboxyhemoglobin 1.2 % (0-4) Arterial Blood Methemoglobin 1.1 % (0-2) Blood Gas Hemoglobin 11.8 G/DL (12.0-16.0) Oxygen Delivery Device VENTILATOR Blood Gas Ventilator Setting [facility]/AC Blood Gas Inspired Oxygen 100 % Blood Urea Nitrogen 58 MG/DL (7-18) Creatinine 4.22 MG/DL (0.60-1.30) Random Glucose 182 MG/DL (74-106) Calcium Level 10.5 MG/DL (8.5-10.1) Phosphorus Level 5.7 MG/DL (2.5-4.9) Magnesium Level 2.2 MG/DL (1.5-2.5) Sodium Level 142 MEQ/L (136-145) Potassium Level 3.5 MEQ/L (3.5-5.1) Chloride Level 102 MEQ/L (98-107) Carbon Dioxide Level 27.8 MEQ/L (21.0-32.0) Anion Gap 12 MEQ/L (5-15) Estimat Glomerular Filtration Rate 14 ML/MIN (>89) Total Protein 6.1 GM/DL (6.0-7.6) Albumin 3.31 GM/DL (3.50-5.00) Albumin/Globulin Ratio 1.18 (1.39-2.23) Cgyub-4-Ozlylziwt 0.42 GM/DL (0.11-0.29) Uopmm-6-Vrabyxfhl 0.87 GM/DL (0.22-1.00) Beta Globulins 0.60 GM/DL (0.53-1.03) Gamma Globulins 0.91 GM/DL (0.50-1.39) Lipase 2124 U/L (73-393) Thyroid Stimulating Hormone 3rd Gen 1.520 uIU/ML (0.358-3.740) Test 04/18/17 04:45 04/18/17 07:55 White Blood Count 15.2 TH/MM3 (4.0-11.0) Red Blood Count 2.61 MIL/MM3 (4.50-5.90) Hemoglobin 8.1 GM/DL (13.0-17.0) Hematocrit 25.7 % (39.0-51.0) Mean Corpuscular Volume 98.6 FL (80.0-100.0) Mean Corpuscular Hemoglobin 31.2 PG (27.0-34.0) Mean Corpuscular Hemoglobin Concent 31.7 % (32.0-36.0) Red Cell Distribution Width 14.7 % (11.6-17.2) Platelet Count 424 TH/MM3 (150-450) Mean Platelet Volume 7.8 FL (7.0-11.0) CBC Comment AUTO DIFF Differential Total Cells Counted 100 Neutrophils % (Manual) 84 % (16-70) Band Neutrophils % 1 % (0-6) Lymphocytes % 7 % (9-44) Monocytes % 4 % (0-8) Eosinophils % 4 % (0-4) Neutrophils # (Manual) 12.9 TH/MM3 (1.8-7.7) Nucleated Red Blood Cells 13 /100 WBC (0-0) Differential Comment FINAL DIFF MANUAL Platelet Estimate NORMAL (NORMAL) Platelet Morphology Comment NORMAL (NORMAL) Polychromasia 2.1 % (0.0-1.9) Ovalocytes 1+ (NORMAL) [place] Cells 1+ (NORMAL) Blood Urea Nitrogen 61 MG/DL (7-18) Creatinine 4.31 MG/DL (0.60-1.30) Random Glucose 174 MG/DL (74-106) Total Protein 5.9 GM/DL (6.4-8.2) Albumin 1.9 GM/DL (3.4-5.0) Calcium Level 10.3 MG/DL (8.5-10.1) Phosphorus Level 5.2 MG/DL (2.5-4.9) Magnesium Level 2.2 MG/DL (1.5-2.5) Alkaline Phosphatase 157 U/L (45-117) Aspartate Amino Transf (AST/SGOT) 20 U/L (15-37) Alanine Aminotransferase (ALT/SGPT) 14 U/L (12-78) Total Bilirubin 1.2 MG/DL (0.2-1.0) Sodium Level 143 MEQ/L (136-145) Potassium Level 3.4 MEQ/L (3.5-5.1) Chloride Level 103 MEQ/L (98-107) Carbon Dioxide Level 24.2 MEQ/L (21.0-32.0) Anion Gap 16 MEQ/L (5-15) Lactic Acid Level 1.2 mmol/L (0.4-2.0) Troponin I 0.37 NG/ML (0.02-0.05) Lipase 1743 U/L (73-393) Prothrombin Time 14.7 SEC (9.8-11.6) Prothromb Time International Ratio 1.5 RATIO Activated Partial Thromboplast Time 31.1 SEC (24.3-30.1) Result Diagram: 04/18/175 04/18/17444 Microbiology Microbiology Date/Time Source Procedure Growth Status 04/17/17 11:01 Bronchial Washings Right Mid Lobe Fungal Smear - Final NO FUNGAL ELEMENTS SEEN. Resulted 04/17/17 11:01 Bronchial Washings Right Mid Lobe Fungal Culture Pending Resulted 04/17/17 11:01 Bronchial Washings Right Mid Lobe Acid Fast Stain Pending Received 04/17/17 11:01 Bronchial Washings Right Mid Lobe Mycobacterial Culture Pending Received 04/17/17 11:01 Bronchial Washings Right Mid Lobe Gram Stain - Final Resulted 04/17/17 11:01 Bronchial Washings Right Mid Lobe Bronchial Culture Pending Resulted Procedures 04/17/2017: Left IJ CVL placement 04/17/2017: Orotracheal intubation . Other 04/10/2017: Femoral arterial line placement 04/10/2017: Orotracheal intubation 04/10/2017: Left SCV CVL placement 04/12/2017: Left SCV CVL discontinued 04/13/2017: Extubated 04/17/2017: Left IJ CVL 04/17/2017: Orotracheal intubation Patient/Family Conference Present at Family Conference: Met with patient's at bedside and in the family conference room. . Family Conference Location: Consult Room Issues Discussed: * Palliative care role, purpose, approach * Additional medical, psychosocial, and spiritual history * Patients general health, functional status, and cognitive changes in the months leading up to the current hospitalization * Patient/family understanding of the current medical problems * Patient/family understanding of prognosis * Patients goals of care as best understood from advance directives and/or conversations and/or values * Current medical treatment options and benefits/burdens of those options * Likely scenarios comparing ongoing aggressive care with a transition to comfort measures only * Questions answered to the best of my ability * Palliative care contact information provided . Assessment and Plan Disease Oriented Problem List: (1) Hypovolemic shock (2) Coagulopathy (3) Respiratory failure (4) Epistaxis (5) ESRD (end stage renal disease) on dialysis Symptom Scale: (1) Debility 0-10 Scale: Unable to quantify (2) Pain 0-10 Scale: Unable to quantify (3) Encephalopathy 0-10 Scale: Unable to quantify Pertinent Non-Medical Issues Psychosocial: Patient and his are originally from [place]. This was a second marriage for both of them and they have now been for 40+ years. He has 4 children and 2 stepchildren; when they got just the children's ages range from 2 years to preteens. 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 Spiritual: None muslim; patient's refused program counselor visits Legal: Her [place] statutes, in the absence of written advanced directives healthcare proxy decision-making falls to the patient's Ethical issues impacting care: No known ethical issues impacting care. . . Important Contacts Aylin Roberto, : [phone] . Prognosis Patient is a 76-year-old male with a complex medical history including ESRD on hemodialysis. Admitted with epistaxis, coagulopathy, pneumonia and bacteremia status post cardiopulmonary arrest 2. Patient is at high risk for ongoing complications and Escherichia coli secondary to his advanced age and deconditioned status. . Code Status: Full Code Plan * ALTERNATE CODE-INTUBATION ONLY * Decision-making: Per [place] statutes, in the absence of written advanced directives healthcare proxy decision-making falls to the patient's * Discussed the process of cardio pulmonary resuscitation with the patient's status post cardiac arrest 2. Patient's states she feels her has been put through enough. Patient is currently intubated. She requests the patient's CODE STATUS be changed to ALTERNATE CODE-INTUBATION ONLY. In the event the patient's heart stops again, she requests that he be allowed to pass peacefully and naturally without further aggressive interventions. Should the patient be accidentally extubated, she would want him to be reintubated at this time. * Goals remain aggressive up to the point of cardiopulmonary resuscitation. * Discussed patient with bedside nurse (Gila) and Dr. Cantu * Palliative care met with patient's , contact information provided. * Symptom management-pain: Patient is off sedation, showing no nonverbal signs or symptoms of pain on exam. History of moderate to severe arthritic pain that significantly reduces patient's activity level. Possible contributing factors include respiratory distress, infections, intubation, immobility, bedbound status, invasiveness lines and recent chest compressions secondary to CPR. Acetaminophen and morphine are available PRN; none has been administered within the past 24 hours. Palliative care will will monitor PRN requirements and make recommendations as indicated. * Symptom management-debility: Patient has a history of declining performance status and marginal nutritional status but was making some improvement until this acute episode. Patient uses a power scooter/wheelchair to get around. It is unclear if the patient will tolerate rehabilitation at this time. * Symptom management-encephalopathy: Encephalopathic status post cardiopulmonary arrest. Sedation was held earlier this afternoon. Patient now nodding/shaking head to yes no questions and consistently following commands. * Palliative care will continue to follow this patient throughout his hospitalization to establish trust, assist with symptom management and clarification of medical treatment goals. . Thank you for the opportunity to participate in the care of Mr. Avila. . Attestation To help prompt me to consider important information that might be impacting today's encounter and assessment, information from prior notes written by myself or my colleagues may have been "brought forward" into today's note. My signature on this note, however, is an attestation that I personally performed the exam, history, and/or decision-making noted today, and, unless otherwise indicated, the interactions with patient, family, and staff as well as the review of records all occurred today. I also attest that the listed assessment and stated plan reflect my best clinical judgment today based on the combination of historical information, prior notes, and today's exam/ interactions. When time spent is documented, it refers only to time spent today by the signer, or if indicated, combined time spent today by collaborating physician/nurse practitioner. . Cristy Gaxiola Apr 18, 2017 12:50
--- NOTE | 2017-04-18 14:01 | RADRPT ---
EXAM DATE/TIME: 04/18/2017 13:08 [facility] COMPARISON: CT ABDOMEN & PELVIS W/O CONTRAST, June 15, 2016, 10:56. INDICATIONS : Abdominal distention. ORAL CONTRAST: Prescribed oral contrast ingested. RADIATION DOSE: 6.01 CTDIvol (mGy) MEDICAL HISTORY : Cardiovascular disease. Hypertension. diabetes SURGICAL HISTORY : None. ENCOUNTER: Initial ACUITY: 1 day PAIN SCALE: Non-responsive LOCATION: Bilateral abdomen TECHNIQUE: Volumetric scanning of the abdomen and pelvis was performed. Using automated exposure control and ad justment of the mA and/or kV according to patient size, radiation dose was kept as low as reasonably achievable to obtain optimal diagnostic quality images. DICOM format image data is available electro nically for review and comparison. FINDINGS: Moderate bibasilar consolidative changes with pleural effusion on the right. Moderate consolidation is seen on the right as well with inspissated secretions. The heart is enlarged The liver is free of focal defects. Kidneys are now small containing calcifications consistent with history of dialysis. Lesion in seen measuring 1.9 cm project off of the right kidney Extensive vascular calcifications are noted Peritoneal dialysis catheter is no longer evident. There is no free fluid. Large bolus of stool is present in the rectum. There is no evidence for abscess. CONCLUSION: Probable impaction with large bolus of stool in the rectum Scattered stool throughout the remainder of the colon Nasogastric tube across the GE junction There is no intra-abdominal abscess. Anthony Claros MD FACR on April 18, 2017 at 13:56 Board Certified Radiologist. This report was verified electronically.
--- NOTE | 2017-04-18 15:20 | HHI.IDPN ---
Note Infectious Disease Note Patient was intubated for respiratory failure. Noted to have mucous plug. Now on the vent and undergoing dialysis. Following commands per RN. Afebrile. 76-year-old white male who was admitted to the hospital on 04/10 with epistaxis. The patient has end-stage renal disease and undergoes hemodialysis. When he was evaluated in the emergency department, he had a brief cardiopulmonary arrest and was intubated. PAST MEDICAL HISTORY: 1. Hypertension. 2. Diabetes mellitus. 3. Coronary artery disease. 4. Dyslipidemia. 5. End-stage renal disease. 6. Benign prostate hypertrophy. 7. History of left renal cell carcinoma. 8. Splenectomy. 9. Appendectomy. ALLERGIES: NO KNOWN DRUG ALLERGIES. ANTIBIOTICS: Vancomycin with dialysis. Pip/Tazo. Zithromax. OBJECTIVE: Vital Signs Date Time Temp Pulse Resp B/P (MAP) Pulse Ox O2 Delivery O2 Flow Rate FiO2 04/18/17 14:00 65 04/18/17 13:24 100 100 04/18/17 12:42 96 35 04/18/17 12:00 50 04/18/17 12:00 57 04/18/17 12:00 97.8 57 15 143/65 (91) 95 04/18/17 11:27 98 35 04/18/17 10:00 59 04/18/17 08:42 100 40 04/18/17 08:00 97.9 65 15 134/65 (88) 100 04/18/17 08:00 59 04/18/17 08:00 50 04/18/17 07:00 100 Mechanical Ventilator 50 04/18/17 06:00 48 04/18/17 04:19 100 50 04/18/17 04:00 97.9 56 15 122/59 (80) 100 04/18/17 04:00 56 04/18/17 04:00 50 04/18/17 02:00 42 04/18/17 01:09 96 50 04/18/17 00:00 54 04/18/17 00:00 50 04/18/17 00:00 98.1 54 15 167/72 (103) 95 04/17/17 23:04 49 155/70 04/17/17 22:38 48 103/53 04/17/17 22:35 97 50 04/17/17 22:00 57 1/7/18 20:24 181/81 04/17/17 20:09 96 50 04/17/17 20:03 97.9 52 15 159/72 96 04/17/17 20:00 50 04/17/17 20:00 54 04/17/17 20:00 97.9 54 15 159/72 (101) 96 04/17/17 19:48 176/78 04/17/17 19:43 97.8 59 15 158/74 97 04/17/17 19:00 97 Mechanical Ventilator 50 04/17/17 18:52 97.7 62 15 133/63 98 04/17/17 18:36 98.4 60 15 120/59 97 04/17/17 18:00 61 04/17/17 16:05 100 100 04/17/17 16:00 98.6 58 15 123/59 (80) 100 04/17/17 16:00 58 04/17/17 16:00 50 04/17/17 15:28 100 50 Laboratory Tests Test 04/17/17 04:48 04/17/17 11:01 04/18/17 04:45 White Blood Count 19.8 TH/MM3 23.8 TH/MM3 15.2 TH/MM3 Red Blood Count 2.99 MIL/MM3 3.04 MIL/MM3 2.61 MIL/MM3 Hemoglobin 9.7 GM/DL 9.7 GM/DL 8.1 GM/DL Hematocrit 29.8 % 30.3 % 25.7 % Mean Corpuscular Volume 99.8 FL 99.7 FL 98.6 FL Mean Corpuscular Hemoglobin 32.5 PG 31.8 PG 31.2 PG Mean Corpuscular Hemoglobin Concent 32.6 % 31.9 % 31.7 % Red Cell Distribution Width 15.3 % 15.1 % 14.7 % Platelet Count 509 TH/MM3 508 TH/MM3 424 TH/MM3 Mean Platelet Volume 7.9 FL 8.0 FL 7.8 FL Neutrophils (%) (Auto) 88.2 % Lymphocytes (%) (Auto) 4.6 % Monocytes (%) (Auto) 6.8 % Eosinophils (%) (Auto) 0.2 % Basophils (%) (Auto) 0.2 % Neutrophils # (Auto) 17.5 TH/MM3 Lymphocytes # (Auto) 0.9 TH/MM3 Monocytes # (Auto) 1.3 TH/MM3 Eosinophils # (Auto) 0.0 TH/MM3 Basophils # (Auto) 0.0 TH/MM3 CBC Comment AUTO DIFF AUTO DIFF Differential Total Cells Counted 100 100 Neutrophils % (Manual) 87 % 84 % Lymphocytes % 4 % 7 % Monocytes % 4 % 4 % Eosinophils % 1 % 4 % Neutrophils # (Manual) 18.0 TH/MM3 12.9 TH/MM3 Myelocytes 4 % Nucleated Red Blood Cells 19 /100 WBC 13 /100 WBC Differential Comment FINAL DIFF MANUAL FINAL DIFF MANUAL Platelet Estimate HIGH NORMAL Platelet Morphology Comment NORMAL NORMAL [place] Bodies PRESENT Keratocytes 1+ Band Neutrophils % 1 % Polychromasia 2.1 % Ovalocytes 1+ Sharon Cells 1+ Laboratory Tests Test 04/17/17 04:48 04/17/17 11:01 04/17/17 14:01 04/17/17 22:50 Blood Urea Nitrogen 47 MG/DL 58 MG/DL Creatinine 3.31 MG/DL 4.22 MG/DL Random Glucose 145 MG/DL 182 MG/DL Total Protein 6.9 GM/DL 6.1 GM/DL Albumin 2.3 GM/DL 3.31 GM/DL Calcium Level 11.3 MG/DL 10.5 MG/DL Alkaline Phosphatase 212 U/L Aspartate Amino Transf (AST/SGOT) 15 U/L Alanine Aminotransferase (ALT/SGPT) 14 U/L Total Bilirubin 1.3 MG/DL Sodium Level 141 MEQ/L 142 MEQ/L Potassium Level 4.0 MEQ/L 3.5 MEQ/L Chloride Level 98 MEQ/L 102 MEQ/L Carbon Dioxide Level 31.7 MEQ/L 27.8 MEQ/L Anion Gap 11 MEQ/L 12 MEQ/L Estimat Glomerular Filtration Rate 18 ML/MIN 14 ML/MIN Troponin I 0.36 NG/ML 0.39 NG/ML 25-Hydroxy Vitamin D Total 73.6 ng/ML Parathyroid Hormone (Intact) 325.5 PG/ML Phosphorus Level 5.7 MG/DL Magnesium Level 2.2 MG/DL Albumin/Globulin Ratio 1.18 [id number] 0.42 GM/DL Girrn-9-Puplgnejl 0.87 GM/DL Beta Globulins 0.60 GM/DL Gamma Globulins 0.91 GM/DL Lipase 2124 U/L Thyroid Stimulating Hormone 3rd Gen 1.520 uIU/ML Test 04/18/17 04:45 Blood Urea Nitrogen 61 MG/DL Creatinine 4.31 MG/DL Random Glucose 174 MG/DL Total Protein 5.9 GM/DL Albumin 1.9 GM/DL Calcium Level 10.3 MG/DL Phosphorus Level 5.2 MG/DL Magnesium Level 2.2 MG/DL Alkaline Phosphatase 157 U/L Aspartate Amino Transf (AST/SGOT) 20 U/L Alanine Aminotransferase (ALT/SGPT) 14 U/L Total Bilirubin 1.2 MG/DL Sodium Level 143 MEQ/L Potassium Level 3.4 MEQ/L Chloride Level 103 MEQ/L Carbon Dioxide Level 24.2 MEQ/L Anion Gap 16 MEQ/L Lactic Acid Level 1.2 mmol/L Troponin I 0.37 NG/ML Lipase 1743 U/L Microbiology Date/Time Source Procedure Growth Status 04/17/17 11:01 Bronchial Washings Right Mid Lobe Fungal Smear - Final NO FUNGAL ELEMENTS SEEN. Resulted 04/17/17 11:01 Bronchial Washings Right Mid Lobe Fungal Culture Pending Resulted 04/17/17 11:01 Bronchial Washings Right Mid Lobe Acid Fast Stain Pending Received 04/17/17 11:01 Bronchial Washings Right Mid Lobe Mycobacterial Culture Pending Received 04/17/17 11:01 Bronchial Washings Right Mid Lobe Gram Stain - Final Resulted 04/17/17 11:01 Bronchial Washings Right Mid Lobe Bronchial Culture - Preliminary HEAVY GROWTH NORMAL RESPIRATORY ARABELLA... Resulted Microbiology Date/Time Source Procedure Growth Status 04/14/17 09:38 Blood Peripheral Aerobic Blood Culture Pending Received 04/14/17 09:38 Blood Peripheral Anaerobic Blood Culture Pending Received 04/13/17 17:10 Blood Peripheral Aerobic Blood Culture - Preliminary NO GROWTH IN 1 DAY Resulted 04/13/17 17:10 Blood Peripheral Anaerobic Blood Culture - Preliminary NO GROWTH IN 1 DAY Resulted 04/11/17 20:15 Blood Peripheral Aerobic Blood Culture - Final Staph Sp Coagulase Negative Complete 04/11/17 20:15 Anaerobic Blood Culture - Final Staphylococcus Epidermidis Complete 04/11/17 20:10 Blood Peripheral Aerobic Blood Culture - Final Staph Sp Coagulase Negative Complete 04/11/17 20:10 Anaerobic Blood Culture - Final Staphylococcus Epidermidis Complete 04/11/17 20:10 Sputum Endotracheal Gram Stain - Final Complete 04/11/17 20:10 Sputum Endotracheal Sputum Culture - Final HEAVY GROWTH NORMAL RESPIRATORY ARABELLA Complete 04/12/17 05:58 Urine Catheterized Urine Urine Culture - Final NO GROWTH IN 48 HOURS. Complete IMAGING: Lower Extremity Ultrasound 04/18/17 0600 Signed Impressions: Service Date/Time: Tuesday, April 18, 2017 08:08 - CONCLUSION: 1. No sonographic evidence for lower extremity DVT. Cristobal Simpson MD Chest X-Ray 04/18/17 0600 Signed Impressions: Service Date/Time: Tuesday, April 18, 2017 04:17 - CONCLUSION: 1. Right lower lobe atelectasis versus pneumonia. There has been no significant change when compared to the prior exam. Michael Bhatt MD Abdomen/Pelvis CT 04/18/17 0000 Signed Impressions: Service Date/Time: Tuesday, April 18, 2017 13:08 - CONCLUSION: Probable impaction with large bolus of stool in the rectum Scattered stool throughout the remainder of the colon Nasogastric tube across the GE junction There is no intra-abdominal abscess. Anthony Claros MD FACR Chest X-Ray 04/17/1748 Signed Impressions: Service Date/Time: Monday, April 17, 2017 09:59 - CONCLUSION: 1. Worsening right basilar patchiness consistent with possible worsening pneumonia and/or atelectasis. Clinical correlation is recommended. 2. Elevation of the right hemidiaphragm. 3. Endotracheal tube and left internal jugular central line are in good positions. 4. Stable cardiomegaly. 5. Degenerative changes and scoliosis of the thoracolumbar spine. Winston Grande MD Chest X-Ray 04/17/17 0000 Signed Impressions: Service Date/Time: Monday, April 17, 2017 10:58 - CONCLUSION: 1. There is no evidence of pneumothorax. 2. Worsening left lower lobe atelectasis versus pneumonia Michael Bhatt MD Chest X-Ray 04/17/17 0000 Signed Impressions: Service Date/Time: Monday, April 17, 2017 08:38 - CONCLUSION: No significant change compared to 04/16/17. Winston Grande MD Brain MRI 04/17/17 0000 Signed Impressions: Service Date/Time: Monday, April 17, 2017 16:21 - CONCLUSION: 1. Possible normal pressure hydrocephalus. Correlation with clinical findings is necessary. 2. No evidence of acute intracranial pathology. No masses are identified. Michael Bhatt MD Chest X-Ray 04/16/17 0600 Signed Impressions: Service Date/Time: Sunday, April 16, 2017 04:27 - CONCLUSION: Persistent bilateral lower lung zone consolidation versus atelectasis. Increase in aeration of the right lung base. Vin Solis MD Chest X-Ray 04/14/17 0600 Signed Impressions: Service Date/Time: April 05:26 - CONCLUSION: Unchanged bibasilar consolidations and cardiomegaly. Darwin Tsai Jr., MD Upper Extremity Ultrasound 04/14/17 0000 Signed Impressions: Service Date/Time: April 10:28 - CONCLUSION: Thrombus is identified within distal cephalic vein. Scottie Donovan MD Head CT 04/12/17 0000 Signed Impressions: Service Date/Time: Wednesday, April 12, 2017 16:08 - CONCLUSION: Chronic changes without hemorrhage mass effect. Scottie Donovan MD PHYSICAL EXAMINATION: GENERAL: No acute distress. Alert. HEENT: intubated. NECK: No adenopathy or swelling. LUNGS: Decreased breath sounds. HEART: Irregular. S1 and S2. No audible murmur. ABDOMEN: Bowel sounds present, soft, no tenderness. EXTREMITIES: No clubbing, cyanosis or edema. AV fistula at the right upper extremity appears intact. NEUROLOGIC: Non focal. PSYCHIATRIC: Calm. IMPRESSION: 1. Coagulase-negative Staph bacteremia. Patient developed fever and leukocytosis and had episode of cardiopulmonary arrest. 2. End-stage renal disease on hemodialysis. 3. Thrombus in distal cephalic LUE. 4. Abnormal CXR ? pneumonia. 5. Respiratory failure - mucous plug. Probable aspiration. 6. Leukocytosis. persistent. ? infection vs reactive. WBC decreasing RECOMMENDATIONS: 1. Continue Vancomycin with dialysis until 04/25/17. 2. Continue Zosyn for pulmonary coverage. 3. Continue Zithromax PO. Additional pulmonary coverage. 4. Continue to monitor the white blood cell count. Trell Simon MD Apr 18, 2017 15:20
[2017-04-18] MEDS: VANCOMYCIN INJ 1,000 MG in SODIUM CHLOR 0.9% 250 ML INJ 250 ML IV SCH (16:11)
[2017-04-18] MEDS: GELATIN 12 MM/7 MM FOAM TOP PRN (16:44)
[2017-04-18] MEDS: EPOETIN ALFA 10,000 UNITS/ML VIAL IV PUSH PRN (16:44)
[2017-04-18] MEDS: AZITHROMYCIN INJ 500 MG in SODIUM CHLOR 0.9% 250 ML INJ 250 ML IV SCH (17:57)
--- NOTE | 2017-04-18 18:40 | EKG ---
Date Performed: 04/15/2017 Time Performed: 10:25:02 PTAGE: 76 years EKG: Probable atrial fibrillation with PVC(s) Possible left anterior fascicular block Left ventr icular hypertrophy Lateral ST-T changes may be due to hypertrophy and/or ischemia Compared to previou s tracing, the patient is now probably in atrial fibrillation and is no longer in a wide complex tach ycardia Abnormal ECG PREVIOUS TRACING : 04/10/2017 12.47 DOCTOR: Huma Beasley Interpretating Date/Time 04/18/2017 18:38:55
--- NOTE | 2017-04-18 18:41 | EKG ---
Date Performed: 04/17/2017 Time Performed: 11:18:23 PTAGE: 76 years EKG: ATRIAL FLUTTER/TACHYCARDIA WITH ABERRANT CONDUCTION OR VENTRICULAR PREMATURE COMPLEXES BORD BRIAN LEFT AXIS DEVIATION ST DEVIATION AND MODERATE T-WAVE ABNORMALITY, CONSIDER ANTEROLATERAL ISCHE JOIE Compared to prior tracing no significant change ABNORMAL ECG PREVIOUS TRACING : 04/15/2017 10.25 DOCTOR: Huma Beasley Interpretating Date/Time 04/18/2017 18:39:27
[2017-04-18] MEDS: ATORVASTATIN 10 MG TAB PO SCH (20:25)
[2017-04-18] MEDS: MORPHINE SULFATE 2 MG/ML INJ IV PUSH PRN (20:26)
[2017-04-19] VITALS (18 sets, daily range): BP systolic 110–164; BP diastolic 56–72; PULSE 64–85; RESP 8–16; TEMP 97.6–99; O2SAT 94–100
[2017-04-19] MEDS: RESP: SODIUM CHLORIDE 3% 4 ML NEB NEB SCH ×4 (03:15→22:00)
[2017-04-19] MEDS: RESP: ALBUTEROL 2.5 MG/IPRATROPIUM 0.5 MG NEB (SCH) NEB ×4 (03:15→20:34)
[2017-04-19] MEDS: CHLORHEXIDINE GLUCONATE 2 % 1 PACK (2 CLOTHS) TOP SCH (04:00)
[2017-04-19] MEDS: ARTIFICIAL TEARS OPTH SOLN 15 ML BTL EACH EYE SCH ×3 (05:41→21:00)
[2017-04-19 06:04] LABS: AUTOMATED NEUTROPHIL # 11.9 TH/MM3 (1.8-7.7); BASOPHIL % 0.3 % (0.0-2.0); EOSINOPHIL % 0.3 % (0.0-4.0); HEMOGLOBIN 8.4 GM/DL (13.0-17.0); LYMPH % 6.3 % (9.0-44.0); LYMPHOCYTE # 0.8 TH/MM3 (1.0-4.8); MEAN CELL VOLUME 98.7 FL (80.0-100.0); MEAN CORPUSCULAR HEMOGLOBIN 33.1 PG (27.0-34.0); MEAN CORPUSCULAR HGB CONC 33.6 % (32.0-36.0); MEAN PLATELET VOLUME 7.9 FL (7.0-11.0); MONO % 5.4 % (0.0-8.0); MONOCYTE # 0.7 TH/MM3 (0-0.9); NEUT % 87.7 % (16.0-70.0); PLATELET COUNT 419 TH/MM3 (150-450); RED BLOOD COUNT 2.53 MIL/MM3 (4.50-5.90); RED CELL DISTRIBUTION WIDTH 15.3 % (11.6-17.2); WHITE BLOOD COUNT 13.6 TH/MM3 (4.0-11.0)
[2017-04-19] MEDS: SODIUM CHLOR 0.9% 1000 ML INJ 1,000 ML IV SCH ×2 (06:18→21:00)
[2017-04-19 06:38] LABS: INTERNATIONAL NORMALIZED RATIO 1.2 RATIO; PROTHROMBIN TIME - PATIENT 12.6 SEC (9.8-11.6)
[2017-04-19 06:53] LABS: ALBUMIN 1.9 GM/DL (3.4-5.0); CALCIUM 9.5 MG/DL (8.5-10.1); CREATININE 2.78 MG/DL (0.60-1.30); PHOSPHORUS 2.7 MG/DL (2.5-4.9)
[2017-04-19 07:14] LABS: BANDS 2 % (0-6); CORRECTED NUCLEATED RBC 13 /100 WBC (0-0); LYMPHOCYTES 8 % (9-44); MONOCYTES 3 % (0-8); NUCLEATED RED BLOOD CELL 13 (0-0); POLYS (SEG NEUTROPHILS) 86 % (16-70)
[2017-04-19 07:15] LABS: ACANTHOCYTES OCC (NORMAL)
[2017-04-19] MEDS: SEVELAMER CARBONATE 800 MG TAB PO SCH ×3 (07:29→15:24)
[2017-04-19] MEDS: TAMSULOSIN HCL 0.4 MG CAP PO SCH (07:29)
[2017-04-19] MEDS: SODIUM CHLORIDE 0.9% FLUSH 10 ML FLUSH IV FLUSH SCH ×3 (07:29→20:12)
[2017-04-19] MEDS: CHLORHEXIDINE 0.12% (ORAL KIT) 15 ML CUP MT SCH ×2 (07:30→20:00)
[2017-04-19] MEDS: FINASTERIDE 5 MG TAB PO SCH (07:30)
[2017-04-19] MEDS: FUROSEMIDE 40 MG TAB PO SCH (07:30)
--- NOTE | 2017-04-19 07:41 | HHI.CCPN ---
Subjective Remarks/Hospital Course 76 y/o man developed a persistent nose bleed this morning after dialysis. In ED his INR was > 13 and he received Kcentra for warfarin reversal (permanent a-fib) . Due to airway problems from blood and hypovolemia he sustained a brief cardiopulmonary arrest in the [place] ED requiring intubation and ventilation. He was aggressively resuscitated by the staff at [facility] and transferred to [facility] for ongoing resuscitation. He arrived to the [facility] with BP 52/25 and pulse rate 44. Two units of type specific blood were administered and levophed initiated at 20 mics/min. A central line was placed revealing CVP < 5 while on positive pressure ventilation. Resuscitation is continuing. 04/11/17: Currently epistaxis is controlled. Patient is off Levophed, hypertensive. PRN hydralazine added. Patient continues to have coffee-ground output from the NG tube large amount. INR is 2.8 have added FFP 2 units and vitamin K stat. Repeat CBC and INR stat 04/12/17: Remains intubated but wakes up easily follows commands. Left upper extremity weaker. INR was 3.3 yesterday received 2 units FFP and vitamin K repeat INR pending. No further epistaxis and NGT output minimal 04/13/17: Extubated yesterday tolerating well. Blood cultures 4 out of 4 bottles positive for coag negative staph. ID consulted 2-D echo ordered. No further epistaxis reported. refused EGD 04/14/17: Protecting airway. Overnight binder stripper hand was called for stridor- appear to be upper airway conducted sounds. Intermittent confusion, but on my exam AOx3 04/15/17: More lethargic today, but wakes up and follows commands. Received morphine 2 mg at 8 AM. Getting hemodialysis today. Will reduce Morphine from 2 to 1 mg. Also WBC count is elevated, to 20.7 04/16/17: Patient remains lethargic encephalopathy, but wakes up remains oriented to person and place. WBC count slightly further elevated to 21.6. Currently on vancomycin and Zosyn. Azithromycin added by infectious diseases have changed to IV. Repeat swallow eval 04/17: Patient went to acute respiratory arrest likely secondary to hypoxia etiology likely aspiration. Please see CPR note. Copious amounts of brownish secretions for ET tube and central line placed emergently. Attempts to contact Aylin Avila [phone] unsuccessful 04/18: Afebrile. FiO2 down to 40%. Continues with some bloody secretions. ET tube. Tolerating tube feeds. Positive BM. requesting palliative care consultation. Subjective 04/19: Tolerated PSV trial yesterday. -3500 cc with hemodialysis. Afebrile. One bowel movement. CT abdomen/pelvis revealed large stool impaction rectum. Objective Vital Signs Date Time Temp Pulse Resp B/P (MAP) Pulse Ox O2 Delivery O2 Flow Rate FiO2 04/19/17 07:00 95 Mechanical Ventilator 35 04/19/17 06:00 68 04/19/17 04:00 98.9 16 151/65 (93) 04/17/17 08:16 15.00 Intake and Output 04/19/17 04/19/17 04/20/17 08:00 16:00 00:00 Intake Total 2573 ml Output Total 0 ml Balance 2573 ml Result Diagram: 04/19/17 0550 04/19/17 0550 Other Results Microbiology Date/Time Source Procedure Growth Status 04/17/17 11:01 Bronchial Washings Right Mid Lobe Fungal Smear - Final NO FUNGAL ELEMENTS SEEN. Resulted 04/17/17 11:01 Bronchial Washings Right Mid Lobe Fungal Culture Pending Resulted 04/17/17 11:01 Bronchial Washings Right Mid Lobe Acid Fast Stain Pending Received 04/17/17 11:01 Bronchial Washings Right Mid Lobe Mycobacterial Culture Pending Received 04/17/17 11:01 Bronchial Washings Right Mid Lobe Gram Stain - Final Resulted 04/17/17 11:01 Bronchial Washings Right Mid Lobe Bronchial Culture - Preliminary HEAVY GROWTH NORMAL RESPIRATORY ARABELLA... Resulted Imaging Last Impressions Lower Extremity Ultrasound 04/18/17599 Signed Impressions: Service Date/Time: Tuesday, April 18, 2017 08:08 - CONCLUSION: 1. No sonographic evidence for lower extremity DVT. Cristobal Simpson MD Chest X-Ray 04/18/17599 Signed Impressions: Service Date/Time: Tuesday, April 18, 2017 04:17 - CONCLUSION: 1. Right lower lobe atelectasis versus pneumonia. There has been no significant change when compared to the prior exam. Michael Bhatt MD Abdomen/Pelvis CT 04/18/17 0000 Signed Impressions: Service Date/Time: Tuesday, April 18, 2017 13:08 - CONCLUSION: Probable impaction with large bolus of stool in the rectum Scattered stool throughout the remainder of the colon Nasogastric tube across the GE junction There is no intra-abdominal abscess. Anthony Claros MD FACR Brain MRI 04/17/17 0000 Signed Impressions: Service Date/Time: Monday, April 17, 2017 16:21 - CONCLUSION: 1. Possible normal pressure hydrocephalus. Correlation with clinical findings is necessary. 2. No evidence of acute intracranial pathology. No masses are identified. Michael Bhatt MD Upper Extremity Ultrasound 04/14/17 0000 Signed Impressions: Service Date/Time: April 10:28 - CONCLUSION: Thrombus is identified within distal cephalic vein. Scottie Donovan MD Head CT 04/12/17 0000 Signed Impressions: Service Date/Time: Wednesday, April 12, 2017 16:08 - CONCLUSION: Chronic changes without hemorrhage mass effect. Scottie Donovan MD Objective Remarks Gen: 76-year-old male, critically ill currently resting in bed orotracheally intubated ENT: No epistaxis. Oropharynx with dried secretions. No oropharyngeal edema. Neck: Supple, no JVD. Left IJ is clean dry and intact Lungs: Chest bilaterally. Coarse rhonchi. No wheezing Heart: Irreg Irreg, 3/6 THIERRY, LSB. Neck veins not distended. Abdomen: Nondistended, quiet. No guarding. Multiple well-healed surgical scars Extremities: Cool and pale. Neuro: Radial nerves II through XII grossly intact. Moves all 4 extremity spontaneously/withdraws to noxious stimuli. Urinary Catheter: No Assessment to: Continue Vascular Central Line Catheter: Yes Assessment to: Continue Date of Insertion: Apr 17, 2017 Line: Central Venous Catheter Location: Internal, Jugular A/P Assessment and Plan Neuro/Psych: Acute toxic metabolic encephalopathy secondary to sepsis Bilateral cataracts YOCHA DEHE Currently on midazolam at 2 mg an hour/fentanyl drip at 50 an hour drips for sedation/analgesia while intubated Goal of RA SS -1 Daily sedation vacation Continue gabapentin 100 mg 3 times a day/home medication for neuropathy - Metabolic encephalopathy most likely secondary to sepsis, worsening now - CT head on admission revealed no acute intracranial findings. Chronic changes - Weakness of left upper extremity most likely related to arthritis and rotator cuff tendinitis- - MRI brain 04/17 revealed possible normal pressure hydrocephalus. Respiratory Acute hypoxic respiratory failure likely secondary to aspiration PRVC 15/550/04/15/49 Ventilator bundle Albuterol/ipratropium aerosols every 6 hours with albuterol aerosols every 2 hours. Dyspnea Spontaneous breathing trials when clinically indicated Follow-up chest x-ray revealed likely mucus plugging right main bronchus below the right upper lobe. Bronchoscopy performed revealed externally frontal mucosa. Thick brown/bloody Mucous plugging right bronchus distal to right upper lobe. - Extubated 04/12 protecting airway - reintubated 04/17 CV PEA secondary to respiratory arrest secondary to aspiration resolved Atrial fibrillation Hypotension Dyslipidemia Currently off all vasopressors 2-D echocardiogram revealed EF 60-65%. Right atrium mildly dilated. Moderate MR/TR. PAP 50-60 mmHg Troponin peaked at 0.39. Currently 0.36 Remains in atrial fibrillation/flutter rates between 40 and 80 Currently on atorvastatin 10 mg daily/40 mg daily at home for dyslipidemia Discontinue furosemide 20 mg twice a day. No urine output 6 days Currently hydralazine 75 mg every 8 hours. Hold while patient is hypotensive GI Gastroesophageal reflux disease History of splenectomy Hypoalbuminemia -Initiate trickle feeds with Nepro @ 45 cc an hour per nutrition's recommendations -Pantoprazole 40 mg IV twice a day -Docusate sodium twice a day/senna twice daily for bowel regimen. BPH End-stage renal disease - hemodialysis Tuesday/Tuesday/Tuesday - Monitor UO. ESRD on HD, getting hemodialysis today - Renal - Dr. Maria Continue tamsulosin 0.4 mg daily and finasteride 5 mill grams daily No He. Bladder scan no urine Heme Epistaxis-resolved - Dr. Stewart followed Warfarin coagulopathy/toxicity - resolved Warfarin coagulopathy resolved post- Kcentra and DDAVP and 2U FFP and 10 mg vitamin K 04/11 Left cephalic vein superficial thrombosis Leukocytosis Normocytic anemia - admission with acute blood loss anemia Monitor CBC daily. Follow trends Currently with superficial thrombosis/no DVT prophylaxis or resumption of warfarin due to high risk of bleeding Follow-up on coags were elevated at 2.6 his Hernandez received vitamin K 10 mg IV and FFP 2 units. Recheck in a.m. ID: Staph epi bacteremia - 4 out of 4 bottles staph epi bacteremia-source probably dialysis access. Repeat blood culture 04/13 negative - 2-D echo- no vegetation. ID consult appreciated - Continue IV vancomycin, continue azithromycin stop date 04/20 and piperacillin/ tazobactam stop date 04/18 - Repeat sputum culture FEN: Hypokalemia Hyperphosphatemia Hypopotassemia Check PTH - elevated at 325 and calcitriol levels pending. Vitamin D levels 25 normal. 05/05 pending. Sevelamer 800 mg 3 times a day for hyperphosphatemia Replace electrolytes as clinically indicated Current normal saline at 84 cc an hour. Discontinue today 20 mEq KCl 1 now. Recheck in a.m. Lines - Left SCV CVL 04/10-DCd? - Left IJ CVL 04/17 Critical care time 35 minutes Avinash Cantu MD Apr 19, 2017 07:41
[2017-04-19] MEDS: GABAPENTIN 100 MG CAP PO SCH ×3 (07:50→17:50)
[2017-04-19] MEDS: PANTOPRAZOLE SODIUM 40 MG VIAL IV PUSH SCH ×2 (07:50→20:12)
[2017-04-19] MEDS: DOCUSATE SODIUM 100 MG/10 ML UDC PO SCH ×2 (07:50→20:12)
[2017-04-19] MEDS: SENNOSIDES SYRUP 8.8 MG/5 ML CUP PO SCH ×2 (07:50→20:12)
[2017-04-19] MEDS: PIPERACIL-TAZO 2.25 GM PREMIX 50 ML IV SCH ×2 (07:50→20:12)
[2017-04-19] MEDS: hydrALAZINE HCL 25 MG TAB PO SCH ×3 (07:51→17:50)
[2017-04-19] MEDS: DOCUSATE SODIUM 50 MG/SENNA 8.6 MG TAB PO SCH (07:51)
[2017-04-19] MEDS: INSULIN DETEMIR 100 UNITS/ML VIAL SQ SCH ×2 (08:56→20:13)
[2017-04-19] MEDS ORDERED: POTASSIUM CHLORIDE 20 MEQ PWD PACKET PO ONE (09:00)
[2017-04-19] MEDS: MORPHINE SULFATE 2 MG/ML INJ IV PUSH PRN ×3 (09:34→21:37)
--- NOTE | 2017-04-19 11:38 | HHI.NPPN ---
Subjective History of Present Illness 76-year-old male with a history of end-stage renal disease on maintenance hemodialysis generally Tuesday and Tuesday however he was dialyzed last Tuesday secondary to the holiday. Subsequently developed epistaxis and presented to the emergency room with hypotension and his INR was said to be greater than 13. Patient was on Coumadin apparently for atrial fibrillation. According to the records patient subsequently required cardiopulmonary resuscitation and was intubated. Interval History Remains intubated. Sedated (Isis Herman) Review of Systems General General Remarks Unable to obtain (Isis Herman) Objective Data Data Vital Signs Date Time Temp Pulse Resp B/P (MAP) Pulse Ox O2 Delivery O2 Flow Rate FiO2 04/19/17 10:42 99 35 04/19/17 10:00 75 04/19/17 08:13 96 35 04/19/17 08:13 35 04/19/17 08:00 64 04/19/17 08:00 97.6 69 15 164/72 (102) 97 04/19/17 08:00 35 04/19/17 07:00 95 Mechanical Ventilator 35 04/19/17 06:00 68 04/19/17 04:19 97 35 04/19/17 04:00 72 04/19/17 04:00 35 04/19/17 04:00 98.9 72 16 151/65 (93) 96 04/19/17 02:06 94 35 04/19/17 02:00 70 04/19/17 00:00 85 04/19/17 00:00 35 04/19/17 00:00 98.7 85 15 149/70 (96) 96 04/18/17 23:44 93 35 04/18/17 22:00 83 04/18/17 20:00 35 04/18/17 20:00 72 04/18/17 20:00 98.9 72 15 135/63 (87) 97 04/18/17 19:47 95 35 04/18/17 19:00 96 Mechanical Ventilator 35 04/18/17 18:00 71 04/18/17 16:00 97.6 85 15 123/58 (79) 97 04/18/17 16:00 78 04/18/17 16:00 35 04/18/17 15:39 97 35 04/18/17 14:00 65 04/18/17 13:24 100 100 04/18/17 12:42 96 35 04/18/17 12:00 50 04/18/17 12:00 57 04/18/17 12:00 97.8 57 15 143/65 (91) 95 (Isis Herman) -: 04/19/17 0550 04/19/17 0550 Imaging Last Impressions Lower Extremity Ultrasound 04/18/17 0600 Signed Impressions: Service Date/Time: Tuesday, April 18, 2017 08:08 - CONCLUSION: 1. No sonographic evidence for lower extremity DVT. Cristobal Simpson MD Chest X-Ray 04/18/17 0600 Signed Impressions: Service Date/Time: Tuesday, April 18, 2017 04:17 - CONCLUSION: 1. Right lower lobe atelectasis versus pneumonia. There has been no significant change when compared to the prior exam. Michael Bhatt MD Abdomen/Pelvis CT 04/18/17 0000 Signed Impressions: Service Date/Time: Tuesday, April 18, 2017 13:08 - CONCLUSION: Probable impaction with large bolus of stool in the rectum Scattered stool throughout the remainder of the colon Nasogastric tube across the GE junction There is no intra-abdominal abscess. Anthony Claros MD FACR Brain MRI 04/17/17 0000 Signed Impressions: Service Date/Time: Monday, April 17, 2017 16:21 - CONCLUSION: 1. Possible normal pressure hydrocephalus. Correlation with clinical findings is necessary. 2. No evidence of acute intracranial pathology. No masses are identified. Michael Bhatt MD Upper Extremity Ultrasound 04/14/17 0000 Signed Impressions: Service Date/Time: April 10:28 - CONCLUSION: Thrombus is identified within distal cephalic vein. Scottie Donovan MD Head CT 04/12/17 0000 Signed Impressions: Service Date/Time: Wednesday, April 12, 2017 16:08 - CONCLUSION: Chronic changes without hemorrhage mass effect. Scottie Donovan MD Medication Review Current Medications Medications (Trade) Dose Ordered Sig/Terra Route Start Time Stop Time Status Last Admin (Lipitor) 10 mg HS PO 04/10/17 21:00 04/18/17 20:25 (Proscar) 5 mg DAILY PO 04/11/17 09:00 04/12/17 08:04 (Neurontin) 100 mg TID PO 04/10/17 18:00 04/19/17 07:50 (Apresoline) 75 mg TID PO 04/10/17 18:00 04/19/17 07:51 (Flomax) 0.4 mg DAILY PO 04/11/17 09:00 04/12/17 08:04 (NS Flush) 2 ml UNSCH PRN IV FLUSH 04/10/17 16:45 (NS Flush) 2 ml BID IV FLUSH 04/10/17 21:00 04/18/17 20:25 (Tylenol) 650 mg Q6H PRN PO 04/10/17 16:45 (Zofran Inj) 4 mg Q6H PRN IV PUSH 04/10/17 16:45 Miscellaneous Information 1 Q361D XX 04/10/17 16:45 04/10/17 16:45 (Chlorhexidine 2% Cloth) Taper DAILY@04 TOP 04/11/17 04:00 04/07/18 03:59 (Chlorhexidine 2% Cloth) 3 pack UNSCH PRN TOP 04/10/17 16:45 (Dulcolax Supp) 10 mg DAILY PRN RECTAL 04/10/17 16:45 (Lactulose Liq) 30 ml DAILY PRN PO 04/10/17 16:45 (Brethine Inj) 1 mg UNSCH PRN SQ 04/10/17 17:30 (Tylenol Supp) 650 mg Q6H PRN RECTAL 04/10/17 18:45 04/11/17 18:43 (Protonix Inj) 40 mg Q12H IV PUSH 04/11/17 21:00 04/19/17 07:50 Sodium Chloride 1,000 ml @ 0 mls/hr Q0M PRN OTHER 04/12/17 11:15 04/13/17 17:00 (Heparin Inj) UNSCH PRN IV FLUSH 04/12/17 11:30 Sodium Chloride 1,000 ml @ 200 mls/hr Q5H PRN IV 04/12/17 11:15 Sodium Chloride 1,000 ml @ 0 mls/hr Q0M PRN OTHER 04/12/17 11:15 (Mannitol Inj) 12.5 gm UNSCH PRN IV 04/12/17 11:15 Albumin Human 100 ml @ 60 mls/hr UNSCH PRN IV 04/12/17 11:30 (NS Flush) 5 ml UNSCH PRN IV FLUSH 04/12/17 11:15 (Gentamicin (Dialysis) Inj) 20 mg UNSCH PRN OTHER 04/12/17 11:30 (Zofran Inj) 4 mg UNSCH PRN IV PUSH 04/12/17 11:30 (Tylenol) 650 mg UNSCH PRN PO 04/12/17 11:30 (Benadryl) 25 mg UNSCH PRN PO 04/12/17 11:30 (Nitrostat Sl) 0.4 mg UNSCH PRN SL 04/12/17 11:30 (Catapres) 0.1 mg UNSCH PRN PO 04/12/17 11:30 04/16/17 20:56 (Epogen Inj) 10,000 units UNSCH PRN IV PUSH 04/12/17 11:30 04/18/17 16:44 (Gelfoam 12 Mm/7 Mm Top) 1 foam UNSCH PRN TOP 04/12/17 11:30 04/18/17 16:44 (Morphine Inj) 1 mg Q4H PRN IV PUSH 04/15/17 14:45 04/19/17 09:34 (Renvela) 800 mg TIDAC PO 04/15/17 17:00 (Apresoline Inj) 10 mg Q1HR PRN IV PUSH 04/15/17 19:30 04/17/17 08:48 (Trandate Inj) 10 mg Q1HR PRN IV PUSH 04/15/17 19:30 04/17/17 02:46 (Nitroglycerin 2% Oint) 2 inch Q6HR PRN TOPICAL 04/15/17 19:30 04/15/17 21:10 Vancomycin HCl 1000 mg/Sodium Chloride 250 ml @ 250 mls/hr WITH DIALYSIS IV 04/16/17 13:45 04/18/17 16:11 Azithromycin 500 mg/Sodium Chloride 250 ml @ 250 mls/hr Q24H IV 04/17/17 15:00 04/20/17 14:59 04/18/17 17:57 (Peridex 0.12% Liq) 15 ml BID@08,20 MT 04/17/17 20:00 04/19/17 07:30 Fentanyl Citrate 250 ml @ 5 mls/hr TITRATE PRN IV 04/17/17 09:00 (NS Flush) DAILY IV FLUSH 04/17/17 10:00 04/19/17 07:51 (NS Flush) UNSCH PRN IV FLUSH 04/17/17 10:00 (Tears Naturale Opth Soln) 1 drop Q8HR EACH EYE 04/17/17 14:00 04/19/17 05:41 (Duoneb Neb) 1 ampule Q6HR NEB NEB 04/17/17 16:00 04/19/17 08:10 (Albuterol Neb) 2.5 mg Q2HR NEB PRN NEB 04/17/17 10:30 (Sodium Chloride 3% Neb) 2 ml Q6HR NEB NEB 04/17/17 16:00 04/19/17 08:10 Sodium Chloride 1,000 ml @ 84 mls/hr [id number] IV 04/17/17 10:30 04/19/17 06:18 (Colace Liq) 100 mg Q12HR PO 04/17/17 21:00 04/19/17 07:50 (Senna Liq) 8.8 mg BID PO 04/17/17 21:00 04/19/17 07:50 Midazolam HCl 100 ml @ 2 mls/hr TITRATE PRN IV 04/17/17 12:30 04/18/17 04:06 Norepinephrine Bitartrate 4 mg/ Sodium Chloride 250 ml @ 7.5 mls/hr TITRATE PRN IV 04/17/17 09:31 04/17/17 23:04 (Brethine Inj) 1 mg UNSCH PRN SQ 04/17/17 13:15 Piperacillin Sod/ Tazobactam Sod 50 ml @ 100 mls/hr Q12H IV 04/18/17 20:00 04/19/17 07:50 (Levemir Inj) 5 units Q12HR SQ 04/19/17 09:00 04/19/17 08:56 (Isis Herman) Physical Exam General Appearance: No Acute Distress, Comfortable, Malnourished (Isis Herman) Pulmonary Resp Exam: Clear Bilaterally, Breath Sounds Equal (Isis Herman) Cardiology CV Exam: Regular, Normal Sinus Rhythm (Isis Herman) Gastrointestinal/Abdomen GI Exam: Soft, Non-Tender (Isis Herman) Integumentary Skin Exam: Clear, Warm (Isis Herman) Extremeties Extremities Exam: No Edema (Isis Herman) Neurologic Neuro Exam: Moving All Extremities, Sedated (Isis Herman) Assessment/Plan Discussed Condition With: Patient Problem List: (1) ESRD (end stage renal disease) on dialysis ICD Codes: N18.6 - End stage renal disease; Z99.2 - Dependence on renal dialysis Status: Chronic Plan: Respiratory insufficiency secondary to right mucous plug status post bronchoscopy. Patient still on the ventilator and intubated. Next HD scheduled 04/20. Will decrease UF to 2L as volume status much improved. Patient as a history of debilitation and marginal nutritional status but was making some improvement until this acute episode. Uncertain in regard to patient's ability to be rehabilitated to a significant degree at this point in time. Palliative care on board Medications should be adjusted for the patient's ESRD. Avoid gadolinium (2) Hypercalcemia associated with chronic dialysis ICD Codes: E83.52 - Hypercalcemia Status: Chronic Plan: Patient has a history of previous hypercalcemia which was evaluated for and no specific etiology determined. Resolved at the present Continue on 2.0 calcium hemodialysis bath ordered Pending Calcitriol level (3) Anemia of renal disease ICD Codes: D63.1 - Anemia in chronic kidney disease Status: Chronic Plan: Receiving Venofer infusion today (4) Epistaxis ICD Codes: R04.0 - Epistaxis Status: Resolved (5) Coumadin toxicity ICD Codes: T45.511A - Poisoning by anticoagulants, accidental (unintentional), initial encounter Status: Resolved Plan: Defer anticoagulation management to primary care physician. (6) HTN (hypertension) ICD Codes: I10 - Essential (primary) hypertension Status: Chronic (Isis Herman) Plan The exam, history, and the medical decision-making described in the above note were completed with the assistance of the PAFidel. I reviewed and agree with the findings presented. (Danita Maria MD) Isis Herman Apr 19, 2017 11:38 Danita Maria MD Apr 20, 2017 17:39
--- NOTE | 2017-04-19 14:46 | HHI.IDPN ---
Note Infectious Disease Note Patient remains on vent. failed CPAP. Awakens and follows commands. Afebrile. 76-year-old white male who was admitted to the hospital on 04/10 with epistaxis. The patient has end-stage renal disease and undergoes hemodialysis. When he was evaluated in the emergency department, he had a brief cardiopulmonary arrest and was intubated. PAST MEDICAL HISTORY: 1. Hypertension. 2. Diabetes mellitus. 3. Coronary artery disease. 4. Dyslipidemia. 5. End-stage renal disease. 6. Benign prostate hypertrophy. 7. History of left renal cell carcinoma. 8. Splenectomy. 9. Appendectomy. ALLERGIES: NO KNOWN DRUG ALLERGIES. ANTIBIOTICS: Vancomycin with dialysis. Pip/Tazo. Zithromax. OBJECTIVE: Vital Signs Date Time Temp Pulse Resp B/P (MAP) Pulse Ox O2 Delivery O2 Flow Rate FiO2 04/19/17 14:00 77 04/19/17 12:00 99.0 79 12 110/56 (74) 100 04/19/17 12:00 35 04/19/17 12:00 79 04/19/17 10:42 99 35 04/19/17 10:00 75 04/19/17 08:13 96 35 04/19/17 08:13 35 04/19/17 08:00 64 04/19/17 08:00 97.6 69 15 164/72 (102) 97 04/19/17 08:00 35 04/19/17 07:00 95 Mechanical Ventilator 35 04/19/17 06:00 68 04/19/17 04:19 97 35 04/19/17 04:00 72 04/19/17 04:00 35 04/19/17 04:00 98.9 72 16 151/65 (93) 96 04/19/17 02:06 94 35 04/19/17 02:00 70 04/19/17 00:00 85 04/19/17 00:00 35 04/19/17 00:00 98.7 85 15 149/70 (96) 96 04/18/17 23:44 93 35 04/18/17 22:00 83 04/18/17 20:00 35 04/18/17 20:00 72 04/18/17 20:00 98.9 72 15 135/63 (87) 97 04/18/17 19:47 95 35 04/18/17 19:00 96 Mechanical Ventilator 35 04/18/17 18:00 71 04/18/17 16:00 97.6 85 15 123/58 (79) 97 04/18/17 16:00 78 04/18/17 16:00 35 04/18/17 15:39 97 35 Laboratory Tests Test 04/18/17 04:45 04/19/17 05:50 White Blood Count 15.2 TH/MM3 13.6 TH/MM3 Red Blood Count 2.61 MIL/MM3 2.53 MIL/MM3 Hemoglobin 8.1 GM/DL 8.4 GM/DL Hematocrit 25.7 % 25.0 % Mean Corpuscular Volume 98.6 FL 98.7 FL Mean Corpuscular Hemoglobin 31.2 PG 33.1 PG Mean Corpuscular Hemoglobin Concent 31.7 % 33.6 % Red Cell Distribution Width 14.7 % 15.3 % Platelet Count 424 TH/MM3 419 TH/MM3 Mean Platelet Volume 7.8 FL 7.9 FL CBC Comment AUTO DIFF AUTO DIFF Differential Total Cells Counted 100 100 Neutrophils % (Manual) 84 % 86 % Band Neutrophils % 1 % 2 % Lymphocytes % 7 % 8 % Monocytes % 4 % 3 % Eosinophils % 4 % 1 % Neutrophils # (Manual) 12.9 TH/MM3 12.0 TH/MM3 Nucleated Red Blood Cells 13 /100 WBC 13 /100 WBC Differential Comment FINAL DIFF MANUAL FINAL DIFF MANUAL Platelet Estimate NORMAL NORMAL Platelet Morphology Comment NORMAL ENLARGED Polychromasia 2.1 % 2.0 % Ovalocytes 1+ Sharon Cells 1+ Neutrophils (%) (Auto) 87.7 % Lymphocytes (%) (Auto) 6.3 % Monocytes (%) (Auto) 5.4 % Eosinophils (%) (Auto) 0.3 % Basophils (%) (Auto) 0.3 % Neutrophils # (Auto) 11.9 TH/MM3 Lymphocytes # (Auto) 0.8 TH/MM3 Monocytes # (Auto) 0.7 TH/MM3 Eosinophils # (Auto) 0.0 TH/MM3 Basophils # (Auto) 0.0 TH/MM3 Acanthocytes OCC Laboratory Tests Test 04/17/17 22:50 04/18/17 04:45 04/19/17 05:50 Blood Urea Nitrogen 58 MG/DL 61 MG/DL 36 MG/DL Creatinine 4.22 MG/DL 4.31 MG/DL 2.78 MG/DL Random Glucose 182 MG/DL 174 MG/DL 259 MG/DL Calcium Level 10.5 MG/DL 10.3 MG/DL 9.5 MG/DL Phosphorus Level 5.7 MG/DL 5.2 MG/DL 2.7 MG/DL Magnesium Level 2.2 MG/DL 2.2 MG/DL Sodium Level 142 MEQ/L 143 MEQ/L 141 MEQ/L Potassium Level 3.5 MEQ/L 3.4 MEQ/L 3.4 MEQ/L Chloride Level 102 MEQ/L 103 MEQ/L 101 MEQ/L Carbon Dioxide Level 27.8 MEQ/L 24.2 MEQ/L 29.0 MEQ/L Anion Gap 12 MEQ/L 16 MEQ/L 11 MEQ/L Estimat Glomerular Filtration Rate 14 ML/MIN 22 ML/MIN Troponin I 0.39 NG/ML 0.37 NG/ML Total Protein 6.1 GM/DL 5.9 GM/DL Albumin 3.31 GM/DL 1.9 GM/DL 1.9 GM/DL Albumin/Globulin Ratio 1.18 Xoskv-7-Xlqvnqanv 0.42 GM/DL Xnoqb-1-Wplwgigxw 0.87 GM/DL Beta Globulins 0.60 GM/DL Gamma Globulins 0.91 GM/DL Electrophoresis Pathologist Comment Lipase 2124 U/L 1743 U/L Thyroid Stimulating Hormone 3rd Gen 1.520 uIU/ML Alkaline Phosphatase 157 U/L Aspartate Amino Transf (AST/SGOT) 20 U/L Alanine Aminotransferase (ALT/SGPT) 14 U/L Total Bilirubin 1.2 MG/DL Lactic Acid Level 1.2 mmol/L Triglycerides Level 110 MG/DL Microbiology Date/Time Source Procedure Growth Status 04/17/17 11:01 Bronchial Washings Right Mid Lobe Fungal Smear - Final NO FUNGAL ELEMENTS SEEN. Resulted 04/17/17 11:01 Bronchial Washings Right Mid Lobe Fungal Culture Pending Resulted 04/17/17 11:01 Bronchial Washings Right Mid Lobe Acid Fast Stain Pending Received 04/17/17 11:01 Bronchial Washings Right Mid Lobe Mycobacterial Culture Pending Received 04/17/17 11:01 Bronchial Washings Right Mid Lobe Gram Stain - Final Complete 04/17/17 11:01 Bronchial Washings Right Mid Lobe Bronchial Culture - Final HEAVY GROWTH NORMAL RESPIRATORY ARABELLA Complete Microbiology Date/Time Source Procedure Growth Status 04/17/17 11:01 Bronchial Washings Right Mid Lobe Fungal Smear - Final NO FUNGAL ELEMENTS SEEN. Resulted 04/17/17 11:01 Bronchial Washings Right Mid Lobe Fungal Culture Pending Resulted 04/17/17 11:01 Bronchial Washings Right Mid Lobe Acid Fast Stain Pending Received 04/17/17 11:01 Bronchial Washings Right Mid Lobe Mycobacterial Culture Pending Received 04/17/17 11:01 Bronchial Washings Right Mid Lobe Gram Stain - Final Resulted 04/17/17 11:01 Bronchial Washings Right Mid Lobe Bronchial Culture - Preliminary HEAVY GROWTH NORMAL RESPIRATORY ARABELLA... Resulted Microbiology Date/Time Source Procedure Growth Status 04/14/17 09:38 Blood Peripheral Aerobic Blood Culture Pending Received 04/14/17 09:38 Blood Peripheral Anaerobic Blood Culture Pending Received 04/13/17 17:10 Blood Peripheral Aerobic Blood Culture - Preliminary NO GROWTH IN 1 DAY Resulted 04/13/17 17:10 Blood Peripheral Anaerobic Blood Culture - Preliminary NO GROWTH IN 1 DAY Resulted 04/11/17 20:15 Blood Peripheral Aerobic Blood Culture - Final Staph Sp Coagulase Negative Complete 04/11/17 20:15 Anaerobic Blood Culture - Final Staphylococcus Epidermidis Complete 04/11/17 20:10 Blood Peripheral Aerobic Blood Culture - Final Staph Sp Coagulase Negative Complete 04/11/17 20:10 Anaerobic Blood Culture - Final Staphylococcus Epidermidis Complete 04/11/17 20:10 Sputum Endotracheal Gram Stain - Final Complete 04/11/17 20:10 Sputum Endotracheal Sputum Culture - Final HEAVY GROWTH NORMAL RESPIRATORY ARABELLA Complete 04/12/17 05:58 Urine Catheterized Urine Urine Culture - Final NO GROWTH IN 48 HOURS. Complete IMAGING: Lower Extremity Ultrasound 04/18/17 0600 Signed Impressions: Service Date/Time: Tuesday, April 18, 2017 08:08 - CONCLUSION: 1. No sonographic evidence for lower extremity DVT. Cristobal Simpson MD Chest X-Ray 04/18/17 0600 Signed Impressions: Service Date/Time: Tuesday, April 18, 2017 04:17 - CONCLUSION: 1. Right lower lobe atelectasis versus pneumonia. There has been no significant change when compared to the prior exam. Michael Bhatt MD Abdomen/Pelvis CT 04/18/17 0000 Signed Impressions: Service Date/Time: Tuesday, April 18, 2017 13:08 - CONCLUSION: Probable impaction with large bolus of stool in the rectum Scattered stool throughout the remainder of the colon Nasogastric tube across the GE junction There is no intra-abdominal abscess. Anthony Claros MD FACR Chest X-Ray 04/17/17 0948 Signed Impressions: Service Date/Time: Monday, April 17, 2017 09:59 - CONCLUSION: 1. Worsening right basilar patchiness consistent with possible worsening pneumonia and/or atelectasis. Clinical correlation is recommended. 2. Elevation of the right hemidiaphragm. 3. Endotracheal tube and left internal jugular central line are in good positions. 4. Stable cardiomegaly. 5. Degenerative changes and scoliosis of the thoracolumbar spine. Winston Grande MD Chest X-Ray 04/17/17 0000 Signed Impressions: Service Date/Time: Monday, April 17, 2017 10:58 - CONCLUSION: 1. There is no evidence of pneumothorax. 2. Worsening left lower lobe atelectasis versus pneumonia Michael Bhatt MD Chest X-Ray 04/17/17 0000 Signed Impressions: Service Date/Time: Monday, April 17, 2017 08:38 - CONCLUSION: No significant change compared to 04/16/17. Winston Grande MD Brain MRI 04/17/17 0000 Signed Impressions: Service Date/Time: Monday, April 17, 2017 16:21 - CONCLUSION: 1. Possible normal pressure hydrocephalus. Correlation with clinical findings is necessary. 2. No evidence of acute intracranial pathology. No masses are identified. Michael Bhatt MD Lower Extremity Ultrasound 04/18/17 0600 Signed Impressions: Service Date/Time: Tuesday, April 18, 2017 08:08 - CONCLUSION: 1. No sonographic evidence for lower extremity DVT. Cristobal Simpson MD Chest X-Ray 04/18/17 0600 Signed Impressions: Service Date/Time: Tuesday, April 18, 2017 04:17 - CONCLUSION: 1. Right lower lobe atelectasis versus pneumonia. There has been no significant change when compared to the prior exam. Michael Bhatt MD Abdomen/Pelvis CT 04/18/17 0000 Signed Impressions: Service Date/Time: Tuesday, April 18, 2017 13:08 - CONCLUSION: Probable impaction with large bolus of stool in the rectum Scattered stool throughout the remainder of the colon Nasogastric tube across the GE junction There is no intra-abdominal abscess. Anthony Claros MD FACR Chest X-Ray 04/17/17 0948 Signed Impressions: Service Date/Time: Monday, April 17, 2017 09:59 - CONCLUSION: 1. Worsening right basilar patchiness consistent with possible worsening pneumonia and/or atelectasis. Clinical correlation is recommended. 2. Elevation of the right hemidiaphragm. 3. Endotracheal tube and left internal jugular central line are in good positions. 4. Stable cardiomegaly. 5. Degenerative changes and scoliosis of the thoracolumbar spine. Winston Grande MD Chest X-Ray 04/17/17 0000 Signed Impressions: Service Date/Time: Monday, April 17, 2017 10:58 - CONCLUSION: 1. There is no evidence of pneumothorax. 2. Worsening left lower lobe atelectasis versus pneumonia Michael Bhatt MD Chest X-Ray 04/17/17 0000 Signed Impressions: Service Date/Time: Monday, April 17, 2017 08:38 - CONCLUSION: No significant change compared to 04/16/17. Winston Grande MD Brain MRI 04/17/17 0000 Signed Impressions: Service Date/Time: Monday, April 17, 2017 16:21 - CONCLUSION: 1. Possible normal pressure hydrocephalus. Correlation with clinical findings is necessary. 2. No evidence of acute intracranial pathology. No masses are identified. Michael Bhatt MD Chest X-Ray 04/16/17 0600 Signed Impressions: Service Date/Time: Sunday, April 16, 2017 04:27 - CONCLUSION: Persistent bilateral lower lung zone consolidation versus atelectasis. Increase in aeration of the right lung base. Vin Solis MD PHYSICAL EXAMINATION: GENERAL: No acute distress. HEENT: No icterus. mucosa slightly dry. NECK: No adenopathy or swelling. LUNGS: Decreased breath sounds. HEART: Irregular. S1 and S2. No audible murmur. ABDOMEN: Bowel sounds present, soft, no tenderness. EXTREMITIES: No clubbing, cyanosis or edema. AV fistula at the right upper extremity appears intact. NEUROLOGIC: sedated. PSYCHIATRIC: Calm. IMPRESSION: 1. Coagulase-negative Staph bacteremia. Patient developed fever and leukocytosis and had episode of cardiopulmonary arrest. 2. End-stage renal disease on hemodialysis. 3. Thrombus in distal cephalic LUE. 4. Abnormal CXR ? pneumonia. 5. Respiratory failure - mucous plug. Probable aspiration. 6. Leukocytosis. persistent. ? infection vs reactive. WBC decreasing further. RECOMMENDATIONS: 1. Continue Vancomycin with dialysis until 04/25/17. 2. Continue Zosyn for pulmonary coverage. 3. Continue Zithromax PO. Additional pulmonary coverage. 4. Monitor the white blood cell count. Trell Simon MD Apr 19, 2017 14:46
[2017-04-19] MEDS: AZITHROMYCIN INJ 500 MG in SODIUM CHLOR 0.9% 250 ML INJ 250 ML IV SCH (15:24)
[2017-04-19] MEDS: ATORVASTATIN 10 MG TAB PO SCH (20:12)
--- NOTE | 2017-04-19 22:50 | MG ---
cc: ANA OLMSTEAD MD Sex: M DATE OF [address] Cantu MEDICAL HISTORY A-fib, [id number], hypertension, hypercholesteremia, renal disease, renal failure on dialysis, patient with diabetes mellitus on anticoagulation therapy , recent acute respiratory arrest, etiology likely aspiration. MEDICATIONS 1. Albuterol. 2. Azithromycin. 3. Protonix. 4. Gabapentin. DESCRIPTION The patient is intubated during the EEG recording. There is generalized and background slowing with low amplitude theta and delta activity. There is some phase reversal at the left frontal region. There is electrode artifact at the right temporal region. There is excessive movement artifact. Photic stimulation did not elicit a driving response. Hyperventilation was omitted. There were no electrographic seizures or epileptiform discharges noted. INTERPRETATION There is generalized and background moderate slowing, may indicate an encephalopathy that may be secondary to metabolic/medication adverse effect or hypoxic pathology. There is some phase reversal at the left frontal hemisphere. There were no electrographic seizures or epileptiform discharges noted during the recording. Clinical correlation is recommended. Ana Olmstead MD RGO/LORENZO /10:26 PM /10:41 PM MTDElvin
[2017-04-20] VITALS (20 sets, daily range): BP systolic 135–161; BP diastolic 63–77; PULSE 68–97; RESP 15–16; TEMP 98–98.5; O2SAT 94–98
[2017-04-20] MEDS: RESP: ALBUTEROL 2.5 MG/IPRATROPIUM 0.5 MG NEB (SCH) NEB ×4 (03:45→20:10)
[2017-04-20] MEDS: RESP: SODIUM CHLORIDE 3% 4 ML NEB NEB SCH ×3 (03:45→20:10)
[2017-04-20] MEDS: CHLORHEXIDINE GLUCONATE 2 % 1 PACK (2 CLOTHS) TOP SCH (04:00)
[2017-04-20 05:58] LABS: HEMATOCRIT 25.9 % (39.0-51.0); HEMOGLOBIN 8.2 GM/DL (13.0-17.0); MEAN CELL VOLUME 100.3 FL (80.0-100.0); MEAN CORPUSCULAR HEMOGLOBIN 31.9 PG (27.0-34.0); MEAN CORPUSCULAR HGB CONC 31.8 % (32.0-36.0); MEAN PLATELET VOLUME 8.2 FL (7.0-11.0); PLATELET COUNT 379 TH/MM3 (150-450); RED BLOOD COUNT 2.58 MIL/MM3 (4.50-5.90); RED CELL DISTRIBUTION WIDTH 15.5 % (11.6-17.2); WHITE BLOOD COUNT 17.3 TH/MM3 (4.0-11.0)
--- NOTE | 2017-04-20 05:58 | RADRPT ---
EXAM DATE/TIME: 04/20/2017 04:42 [facility] COMPARISON: CHEST SINGLE AP, April 18, 2017, 4:17. INDICATIONS : Shortness of breath. MEDICAL HISTORY : Hypertension. Stage 3 renal disease. SURGICAL HISTORY : None. ENCOUNTER: Subsequent ACUITY: 2 weeks PAIN SCORE: Non-responsive. LOCATION: Bilateral chest FINDINGS: The cardiac silhouette is enlarged in transverse diameter. There is right lower lobe atelectasis vers us pneumonia. Endotracheal tube is in good position above the reilly. The left lung is free of acute parenchymal opacity. CONCLUSION: 1. Right lower lobe atelectasis versus pneumonia. There has been no significant change when compared to the prior exam. Michael Bhatt MD on April 20, 2017 at 5:56 Board Certified Radiologist. This report was verified electronically.
[2017-04-20] MEDS: ARTIFICIAL TEARS OPTH SOLN 15 ML BTL EACH EYE SCH ×3 (06:00→22:00)
[2017-04-20 06:38] LABS: ALBUMIN 1.9 GM/DL (3.4-5.0); BICARBONATE 26.5 MEQ/L (21.0-32.0); CALCIUM 9.7 MG/DL (8.5-10.1); CHOLESTEROL/ HDL RATIO 1.93 RATIO; CREATININE 3.79 MG/DL (0.60-1.30); HDL CHOLESTEROL 36.6 MG/DL (40.0-60.0); PHOSPHORUS 3.9 MG/DL (2.5-4.9)
[2017-04-20 07:57] LABS: BANDS 3 % (0-6); CORRECTED NUCLEATED RBC 5 /100 WBC (0-0); KERATOCYTES OCC (NORMAL); LYMPHOCYTES 6 % (9-44); MONOCYTES 3 % (0-8); MYELOCYTES 1 % (0-0); NEUTROPHIL # MANUAL DIFF 15.7 TH/MM3 (1.8-7.7); NUCLEATED RED BLOOD CELL 5 (0-0); POLYS (SEG NEUTROPHILS) 87 % (16-70)
[2017-04-20 07:58] LABS: ACANTHOCYTES 1+ (NORMAL)
[2017-04-20 07:59] LABS: TOXIC GRANULATION 1+ (NORMAL)
[2017-04-20] MEDS: CHLORHEXIDINE 0.12% (ORAL KIT) 15 ML CUP MT SCH ×2 (08:00→20:00)
[2017-04-20] MEDS: SEVELAMER CARBONATE 800 MG TAB PO SCH ×3 (08:00→17:00)
[2017-04-20] MEDS: PIPERACIL-TAZO 2.25 GM PREMIX 50 ML IV SCH ×2 (08:15→21:00)
[2017-04-20] MEDS: SODIUM CHLORIDE 0.9% FLUSH 10 ML FLUSH IV FLUSH SCH ×3 (08:16→20:56)
[2017-04-20] MEDS: DOCUSATE SODIUM 100 MG/10 ML UDC PO SCH ×2 (08:18→20:56)
[2017-04-20] MEDS: SENNOSIDES SYRUP 8.8 MG/5 ML CUP PO SCH ×2 (08:18→20:56)
[2017-04-20] MEDS: hydrALAZINE HCL 25 MG TAB PO SCH ×4 (08:18→17:58)
[2017-04-20] MEDS: PANTOPRAZOLE SODIUM 40 MG VIAL IV PUSH SCH (08:18)
[2017-04-20] MEDS: FINASTERIDE 5 MG TAB PO SCH (08:19)
[2017-04-20] MEDS: GABAPENTIN 100 MG CAP PO SCH (08:19)
[2017-04-20] MEDS: SODIUM CHLOR 0.9% 1000 ML INJ 1,000 ML IV SCH (08:20)
[2017-04-20] MEDS: TAMSULOSIN HCL 0.4 MG CAP PO SCH (08:20)
[2017-04-20] MEDS: INSULIN DETEMIR 100 UNITS/ML VIAL SQ SCH ×2 (09:00→21:00)
[2017-04-20] MEDS: INSULIN NovoLIN REGULAR SUPPLEMENTAL SCALE SQ SCH ×2 (12:00→18:00)
[2017-04-20] MEDS ORDERED: DEXTROSE 50% IN WATER 50 ML VIAL(D50) IV PUSH PRN (12:00)
[2017-04-20] MEDS ORDERED: GLUCAGON 1 MG/ML VIAL OTHER PRN (12:00)
[2017-04-20] MEDS ORDERED: GLUCAGON 1 MG/ML VIAL IM PRN (12:00)
--- NOTE | 2017-04-20 12:20 | HHI.CCPN ---
Subjective Remarks/Hospital Course 76 y/o man developed a persistent nose bleed this morning after dialysis. In ED his INR was > 13 and he received Kcentra for warfarin reversal (permanent a-fib) . Due to airway problems from blood and hypovolemia he sustained a brief cardiopulmonary arrest in the [place] ED requiring intubation and ventilation. He was aggressively resuscitated by the staff at [facility] and transferred to [facility] for ongoing resuscitation. He arrived to the [facility] with BP 52/25 and pulse rate 44. Two units of type specific blood were administered and levophed initiated at 20 mics/min. A central line was placed revealing CVP < 5 while on positive pressure ventilation. Resuscitation is continuing. 04/11/17: Currently epistaxis is controlled. Patient is off Levophed, hypertensive. PRN hydralazine added. Patient continues to have coffee-ground output from the NG tube large amount. INR is 2.8 have added FFP 2 units and vitamin K stat. Repeat CBC and INR stat 04/12/17: Remains intubated but wakes up easily follows commands. Left upper extremity weaker. INR was 3.3 yesterday received 2 units FFP and vitamin K repeat INR pending. No further epistaxis and NGT output minimal 04/13/17: Extubated yesterday tolerating well. Blood cultures 4 out of 4 bottles positive for coag negative staph. ID consulted 2-D echo ordered. No further epistaxis reported. refused EGD 04/14/17: Protecting airway. Overnight fiscal economist was called for stridor- appear to be upper airway conducted sounds. Intermittent confusion, but on my exam AOx3 04/15/17: More lethargic today, but wakes up and follows commands. Received morphine 2 mg at 8 AM. Getting hemodialysis today. Will reduce Morphine from 2 to 1 mg. Also WBC count is elevated, to 20.7 04/16/17: Patient remains lethargic encephalopathy, but wakes up remains oriented to person and place. WBC count slightly further elevated to 21.6. Currently on vancomycin and Zosyn. Azithromycin added by infectious diseases have changed to IV. Repeat swallow eval 04/17: Patient went to acute respiratory arrest likely secondary to hypoxia etiology likely aspiration. Please see CPR note. Copious amounts of brownish secretions for ET tube and central line placed emergently. Attempts to contact Aylin Avila [phone] unsuccessful 04/18: Afebrile. FiO2 down to 40%. Continues with some bloody secretions. ET tube. Tolerating tube feeds. Positive BM. requesting palliative care consultation. 04/19: Tolerated PSV trial yesterday. -3500 cc with hemodialysis. Afebrile. One bowel movement. CT abdomen/pelvis revealed large stool impaction rectum. Subjective 04/20: Currently afebrile. Hemodialysis scheduled for today. We will attempt PSV trial afterwards. Positive BM. FiO2 60% overnight currently at 40%. Objective Vital Signs Date Time Temp Pulse Resp B/P (MAP) Pulse Ox O2 Delivery O2 Flow Rate FiO2 04/20/17 11:00 45 04/20/17 10:00 74 04/20/17 08:35 96 04/20/17 08:00 98.5 16 137/65 (89) 04/20/17 07:00 Mechanical Ventilator 04/17/17 08:16 15.00 Intake and Output 04/20/17 04/20/17 04/21/17 08:00 16:00 00:00 Intake Total 1245 ml Output Total 0 ml Balance 1245 ml Result Diagram: 04/20/17 0545 04/20/17 0545 Other Results Microbiology Date/Time Source Procedure Growth Status 04/14/17 09:38 Blood Peripheral Aerobic Blood Culture - Final NO GROWTH IN 5 DAYS Complete 04/14/17 09:38 Blood Peripheral Anaerobic Blood Culture - Final NO GROWTH IN 5 DAYS Complete 04/17/17 11:01 Bronchial Washings Right Mid Lobe Fungal Smear - Final NO FUNGAL ELEMENTS SEEN. Resulted 04/17/17 11:01 Bronchial Washings Right Mid Lobe Fungal Culture Pending Resulted 04/12/17 05:58 Urine Catheterized Urine Urine Culture - Final NO GROWTH IN 48 HOURS. Complete Imaging Last Impressions Chest X-Ray 04/20/17 06 Signed Impressions: Service Date/Time: Thursday, April 20, 2017 04:42 - CONCLUSION: 1. Right lower lobe atelectasis versus pneumonia. There has been no significant change when compared to the prior exam. Michael Bhatt MD Lower Extremity Ultrasound 04/18/17 0600 Signed Impressions: Service Date/Time: Tuesday, April 18, 2017 08:08 - CONCLUSION: 1. No sonographic evidence for lower extremity DVT. Cristobal Simpson MD Abdomen/Pelvis CT 04/18/17 0000 Signed Impressions: Service Date/Time: Tuesday, April 18, 2017 13:08 - CONCLUSION: Probable impaction with large bolus of stool in the rectum Scattered stool throughout the remainder of the colon Nasogastric tube across the GE junction There is no intra-abdominal abscess. Anthony Claros MD FACR Brain MRI 04/17/17 0000 Signed Impressions: Service Date/Time: Monday, April 17, 2017 16:21 - CONCLUSION: 1. Possible normal pressure hydrocephalus. Correlation with clinical findings is necessary. 2. No evidence of acute intracranial pathology. No masses are identified. Michael Bhatt MD Upper Extremity Ultrasound 04/14/17 0000 Signed Impressions: Service Date/Time: April 10:28 - CONCLUSION: Thrombus is identified within distal cephalic vein. Scottie Donovan MD Head CT 04/12/17 0000 Signed Impressions: Service Date/Time: Wednesday, April 12, 2017 16:08 - CONCLUSION: Chronic changes without hemorrhage mass effect. Scottie Donovan MD Objective Remarks Gen: 76-year-old male, critically ill currently resting in bed orotracheally intubated ENT: No epistaxis. Oropharynx with dried secretions. No oropharyngeal edema. Neck: Supple, no JVD. Left IJ is clean dry and intact Lungs: Chest bilaterally. Coarse rhonchi. No wheezing Heart: Irreg Irreg, 3/6 THIERRY, LSB. Neck veins not distended. Abdomen: Nondistended, quiet. No guarding. Multiple well-healed surgical scars Extremities: Cool and pale. Neuro: Radial nerves II through XII grossly intact. Moves all 4 extremity spontaneously/withdraws to noxious stimuli. Urinary Catheter: No Assessment to: Continue Vascular Central Line Catheter: Yes Assessment to: Continue Date of Insertion: Apr 17, 2017 Line: Central Venous Catheter Location: Internal, Jugular A/P Assessment and Plan Neuro/Psych: Acute toxic metabolic encephalopathy secondary to sepsis Bilateral cataracts [place] GR[place]DE Currently off all sedation. Goal of RASS -1 Will hold gabapentin 100 mg 3 times a day/home medication for neuropathy. Check gabapentin level Metabolic encephalopathy most likely secondary to sepsis, possibly medication induced CT head on admission revealed no acute intracranial findings. Chronic changes Weakness of left upper extremity most likely related to arthritis and rotator cuff tendinitis- MRI brain 04/17 revealed possible normal pressure hydrocephalus. Respiratory Acute hypoxic respiratory failure likely secondary to aspiration PRVC 15/550/1./ Ventilator bundle Albuterol/ipratropium aerosols every 6 hours with albuterol aerosols every 2 hours. Dyspnea Spontaneous breathing trials when clinically indicated Follow-up chest x-ray revealed likely mucus plugging right main bronchus below the right upper lobe. Bronchoscopy performed revealed externally frontal mucosa. Thick brown/bloody Mucous plugging right bronchus distal to right upper lobe. - Extubated 04/12 protecting airway - reintubated 04/17 CV PEA secondary to respiratory arrest secondary to aspiration resolved Atrial fibrillation Hypotension Dyslipidemia Currently off all vasopressors 2-D echocardiogram revealed EF 60-65%. Right atrium mildly dilated. Moderate MR/TR. PAP 50-60 mmHg Troponin peaked at 0.39. Currently 0.36 Remains in atrial fibrillation/flutter rates between 40 and 80 Currently on atorvastatin 10 mg daily/40 mg daily at home for dyslipidemia Discontinue furosemide 20 mg twice a day. No urine output 6 days Currently hydralazine 75 mg every 8 hours. GI Gastroesophageal reflux disease History of splenectomy Hypoalbuminemia -Initiate trickle feeds with Nepro @ 45 cc an hour per nutrition's recommendations -Pantoprazole 40 mg IV once a day -Docusate sodium twice a day/senna twice daily for bowel regimen. BPH End-stage renal disease - hemodialysis Tuesday/Tuesday/Tuesday - Monitor UO. ESRD on HD, getting hemodialysis today - Renal - Dr. Maria Continue tamsulosin 0.4 mg daily and finasteride 5 mill grams daily. Unable to crush down NG tube currently No He. Bladder scan no urine Heme Epistaxis-resolved - Dr. Stewart followed Warfarin coagulopathy/toxicity - resolved Warfarin coagulopathy resolved post- Kcentra and DDAVP and 2U FFP and 10 mg vitamin K 04/11 Left cephalic vein superficial thrombosis Leukocytosis Normocytic anemia - admission with acute blood loss anemia Monitor CBC daily. Follow trends Currently with superficial thrombosis/no DVT prophylaxis or resumption of warfarin due to high risk of bleeding Follow-up on coags were elevated at 2.6 his Hernandez received vitamin K 10 mg IV and FFP 2 units. Recheck in a.m. ID: Staph epi bacteremia - 4 out of 4 bottles staph epi bacteremia-source probably dialysis access. Repeat blood culture 04/13 negative - 2-D echo- no vegetation. ID consult appreciated - Continue IV vancomycin, continue azithromycin stop date 04/20 and piperacillin/ tazobactam for pulmonary coverage - Repeat sputum culture FEN: Hypopotassemia Check PTH - elevated at 325 and calcitriol levels pending. Vitamin D levels 25 normal. 05/05 pending. Sevelamer 800 mg 3 times a day for hyperphosphatemia - switch Fosrenol for phosphate binder when medically indicated Replace electrolytes as clinically indicated Current normal saline at 84 cc an hour. Discontinue today Lines - Left SCV CVL 04/10-DCd? - Left IJ CVL 04/17 Critical care time 35 minutes Avinash Cantu MD Apr 20, 2017 12:20
[2017-04-20] MEDS: VANCOMYCIN INJ 1,000 MG in SODIUM CHLOR 0.9% 250 ML INJ 250 ML IV SCH (13:16)
[2017-04-20] MEDS: GELATIN 12 MM/7 MM FOAM TOP PRN (13:16)
[2017-04-20] MEDS: EPOETIN ALFA 10,000 UNITS/ML VIAL IV PUSH PRN (13:16)
[2017-04-20] MEDS: MORPHINE SULFATE 2 MG/ML INJ IV PUSH PRN (13:37)
--- NOTE | 2017-04-20 14:35 | HHI.HCPN ---
Reason for visit a. To assist with evaluation and management of symptoms including: Debility , encephalopathy, pain b. To assist medical decision maker(s) with: better understanding of current medical conditions; weighing benefits/burdens of medical treatment options; making medical treatment decisions. Subjective/Interval History DRAFT... Mr. Avila is a 76-year-old male with ESRD admitted with epistaxis, coagulopathy, PNA and bacteremia status post CPR 2. Follow-up visit for symptom management and clarification of medical treatment goals. Afebrile. Follow-up blood cultures on 04/14/2017 negative 5 days. Bronchial washings remain negative to date. Follow-up chest x-ray on 04/20/2017 showing right lower lobe atelectasis versus pneumonia, no significant change in comparison to prior exam. WBC: 17.3, hemoglobin 8.2, hematocrit 25.9, platelets 379 Sodium: 139, potassium 3.7, chloride 103, carbon dioxide 26.5, glucose 209, calcium 9.7, phosphorus 3.9 BUN: 52, creatinine 3.79, GFR 16 Albumin: 1.9 Metabolic encephalopathy likely secondary to sepsis, possibly medication induced. EEG revealed no evidence of seizures, moderate slowing CT head on admission revealed no acute intracranial findings, there was slight degree of brain atrophy, chronic small vessel ischemic changes were noted. 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 Patient remains intubated on mechanical ventilator; FiO2 decreased from 60% to 40% overnight. Plan to attempt PSV trials later today. Advance Directives Living Will: Never completed Health Care Surrogate: Never completed Durable Power of Shovel Logger: Never completed Advance Directive Specifics Health Care Surrogate(s): Per [place] statutes, in the absence of written advanced directives healthcare proxy decision-making falls to the patient's . . Documented care wishes: No known documented care wishes have been completed. . Objective Vital Signs Date Time Temp Pulse Resp B/P (MAP) Pulse Ox O2 Delivery O2 Flow Rate FiO2 04/20/17 14:00 78 04/20/17 13:42 15 04/20/17 12:48 95 40 04/20/17 12:00 73 04/20/17 12:00 98.5 73 15 135/63 (87) 96 04/20/17 12:00 50 04/20/17 11:00 45 04/20/17 10:00 74 04/20/17 08:35 96 60 04/20/17 08:00 60 04/20/17 08:00 75 04/20/17 08:00 98.5 70 16 137/65 (89) 94 04/20/17 07:00 95 Mechanical Ventilator 65 04/20/17 06:00 68 04/20/17 04:00 65 04/20/17 04:00 76 04/20/17 04:00 98.0 76 15 147/67 (93) 96 04/20/17 03:46 96 65 04/20/17 02:00 72 04/20/17 00:38 96 65 04/20/17 00:00 65 04/20/17 00:00 98.2 75 15 139/65 (89) 96 04/20/17 00:00 75 04/19/17 22:00 82 04/19/17 20:45 35 04/19/17 20:34 95 35 04/19/17 20:00 35 04/19/17 20:00 98.4 68 8 151/70 (97) 94 04/19/17 20:00 68 04/19/17 19:00 95 Mechanical Ventilator 35 04/19/17 18:00 70 04/19/17 16:00 35 04/19/17 16:00 98.4 68 10 132/60 (84) 96 04/19/17 16:00 68 04/19/17 14:54 96 35 04/19/17 14:54 35 Intake & Output 04/20/17 04/20/17 07:00 19:00 Intake Total 2670 ml Output Total 0 ml Balance 2670 ml Intake Oral 0 ml IV Total 2173 ml Tube Feeding 437 ml Tube Irrigant 60 ml Output Urine Total 0 ml # Bowel Movements 2 Physical Exam CONSTITUTIONAL/GENERAL: This is a frail appearing, elderly male patient currently intubated on mechanical ventilation TUBES/LINES/DRAINS: CVL, ETT, OGT, PIV x 2, AV fistula, soft restraints SKIN: Ecchymoses on upper extremities. No wounds seen anteriorly. Skin temperature appropriate. Not diaphoretic. HEAD: Atraumatic. Normocephalic. EYES: Pupils equal and round and reactive. No scleral icterus. No injection or drainage. Fundi not examined. ENT: Hearing grossly normal. No epistaxis. Oropharynx with dried secretions. NECK: Trachea midline. CARDIOVASCULAR: Regular rate, Irregular rhythm. Peripheral pulses symmetric. RESPIRATORY/CHEST: Intubated on mechanical ventilation. Coarse air exchange GASTROINTESTINAL: Abdomen soft, non-tender, nondistended. No guarding. Bowel sounds present. GENITOURINARY: Without palpable bladder distension. Receiving hemodialysis. MUSCULOSKELETAL: Extremities without clubbing, cyanosis, or edema. No mottling or clubbing. LYMPHATICS: No palpable cervical or supraclavicular adenopathy. NEUROLOGICAL: Opens eyes to verbal stimuli, attempting to follow simple commands. Patient "wiggles"toes when asked; attempting to give a thumbs up with right hand. PSYCHIATRIC: Unable to assess secondary to patient's clinical condition . Diagnostic Tests Laboratory Laboratory Tests Test 04/17/17 22:50 04/18/17 04:45 04/18/17 07:55 04/19/17 05:50 Blood Urea Nitrogen 58 MG/DL (7-18) 61 MG/DL (7-18) 36 MG/DL (7-18) Creatinine 4.22 MG/DL (0.60-1.30) 4.31 MG/DL (0.60-1.30) 2.78 MG/DL (0.60-1.30) Random Glucose 182 MG/DL (74-106) 174 MG/DL (74-106) 259 MG/DL (74-106) Calcium Level 10.5 MG/DL (8.5-10.1) 10.3 MG/DL (8.5-10.1) 9.5 MG/DL (8.5-10.1) Phosphorus Level 5.7 MG/DL (2.5-4.9) 5.2 MG/DL (2.5-4.9) 2.7 MG/DL (2.5-4.9) Magnesium Level 2.2 MG/DL (1.5-2.5) 2.2 MG/DL (1.5-2.5) Sodium Level 142 MEQ/L (136-145) 143 MEQ/L (136-145) 141 MEQ/L (136-145) Potassium Level 3.5 MEQ/L (3.5-5.1) 3.4 MEQ/L (3.5-5.1) 3.4 MEQ/L (3.5-5.1) Chloride Level 102 MEQ/L (98-107) 103 MEQ/L (98-107) 101 MEQ/L (98-107) Carbon Dioxide Level 27.8 MEQ/L (21.0-32.0) 24.2 MEQ/L (21.0-32.0) 29.0 MEQ/L (21.0-32.0) Anion Gap 12 MEQ/L (5-15) 16 MEQ/L (5-15) 11 MEQ/L (5-15) Estimat Glomerular Filtration Rate 14 ML/MIN (>89) 22 ML/MIN (>89) Troponin I 0.39 NG/ML (0.02-0.05) 0.37 NG/ML (0.02-0.05) Total Protein 6.1 GM/DL (6.0-7.6) 5.9 GM/DL (6.4-8.2) Albumin 3.31 GM/DL (3.50-5.00) 1.9 GM/DL (3.4-5.0) 1.9 GM/DL (3.4-5.0) Albumin/Globulin Ratio 1.18 (1.39-2.23) Qlzrx-2-Ofcltrkaf 0.42 GM/DL (0.11-0.29) Fduwf-3-Yssdcvtuo 0.87 GM/DL (0.22-1.00) Beta Globulins 0.60 GM/DL (0.53-1.03) Gamma Globulins 0.91 GM/DL (0.50-1.39) Electrophoresis Pathologist Comment Lipase 2124 U/L (73-393) 1743 U/L (73-393) Thyroid Stimulating Hormone 3rd Gen 1.520 uIU/ML (0.358-3.740) White Blood Count 15.2 TH/MM3 (4.0-11.0) 13.6 TH/MM3 (4.0-11.0) Red Blood Count 2.61 MIL/MM3 (4.50-5.90) 2.53 MIL/MM3 (4.50-5.90) Hemoglobin 8.1 GM/DL (13.0-17.0) 8.4 GM/DL (13.0-17.0) Hematocrit 25.7 % (39.0-51.0) 25.0 % (39.0-51.0) Mean Corpuscular Volume 98.6 FL (80.0-100.0) 98.7 FL (80.0-100.0) Mean Corpuscular Hemoglobin 31.2 PG (27.0-34.0) 33.1 PG (27.0-34.0) Mean Corpuscular Hemoglobin Concent 31.7 % (32.0-36.0) 33.6 % (32.0-36.0) Red Cell Distribution Width 14.7 % (11.6-17.2) 15.3 % (11.6-17.2) Platelet Count 424 TH/MM3 (150-450) 419 TH/MM3 (150-450) Mean Platelet Volume 7.8 FL (7.0-11.0) 7.9 FL (7.0-11.0) CBC Comment AUTO DIFF AUTO DIFF Differential Total Cells Counted 100 100 Neutrophils % (Manual) 84 % (16-70) 86 % (16-70) Band Neutrophils % 1 % (0-6) 2 % (0-6) Lymphocytes % 7 % (9-44) 8 % (9-44) Monocytes % 4 % (0-8) 3 % (0-8) Eosinophils % 4 % (0-4) 1 % (0-4) Neutrophils # (Manual) 12.9 TH/MM3 (1.8-7.7) 12.0 TH/MM3 (1.8-7.7) Nucleated Red Blood Cells 13 /100 WBC (0-0) 13 /100 WBC (0-0) Differential Comment FINAL DIFF MANUAL FINAL DIFF MANUAL Platelet Estimate NORMAL (NORMAL) NORMAL (NORMAL) Platelet Morphology Comment NORMAL (NORMAL) ENLARGED (NORMAL) Polychromasia 2.1 % (0.0-1.9) 2.0 % (0.0-1.9) Ovalocytes 1+ (NORMAL) Sharon Cells 1+ (NORMAL) Alkaline Phosphatase 157 U/L (45-117) Aspartate Amino Transf (AST/SGOT) 20 U/L (15-37) Alanine Aminotransferase (ALT/SGPT) 14 U/L (12-78) Total Bilirubin 1.2 MG/DL (0.2-1.0) Lactic Acid Level 1.2 mmol/L (0.4-2.0) Prothrombin Time 14.7 SEC (9.8-11.6) 12.6 SEC (9.8-11.6) Prothromb Time International Ratio 1.5 RATIO 1.2 RATIO Activated Partial Thromboplast Time 31.1 SEC (24.3-30.1) 28.8 SEC (24.3-30.1) Neutrophils (%) (Auto) 87.7 % (16.0-70.0) Lymphocytes (%) (Auto) 6.3 % (9.0-44.0) Monocytes (%) (Auto) 5.4 % (0.0-8.0) Eosinophils (%) (Auto) 0.3 % (0.0-4.0) Basophils (%) (Auto) 0.3 % (0.0-2.0) Neutrophils # (Auto) 11.9 TH/MM3 (1.8-7.7) Lymphocytes # (Auto) 0.8 TH/MM3 (1.0-4.8) Monocytes # (Auto) 0.7 TH/MM3 (0-0.9) Eosinophils # (Auto) 0.0 TH/MM3 (0-0.4) Basophils # (Auto) 0.0 TH/MM3 (0-0.2) Acanthocytes OCC (NORMAL) Fibrinogen 640 mg/dL (227-377) Triglycerides Level 110 MG/DL (42-150) Test 04/19/17 22:25 04/20/17 05:45 Blood Gas Puncture Site LT BRACHIAL Blood Gas Patient Temperature 98.6 Blood Gas HCO3 28 mmol/L (22-26) Blood Gas Base Excess 4.3 mmol/L (-2-2) Blood Gas Oxygen Saturation 91 % (90-100) Arterial Blood pH 7.48 (7.380-7.420) Arterial Blood Partial Pressure CO2 38 mmHg (38-42) Arterial Blood Partial Pressure O2 66 mmHg (61-120) Arterial Blood Oxygen Content 11.0 Vol % (12.0-20.0) Arterial Blood Carboxyhemoglobin 1.5 % (0-4) Arterial Blood Methemoglobin 1.2 % (0-2) Blood Gas Hemoglobin 8.5 G/DL (12.0-16.0) Oxygen Delivery Device VENTILATOR Blood Gas Ventilator Setting SEE COMMENT Blood Gas Inspired Oxygen 65 % White Blood Count 17.3 TH/MM3 (4.0-11.0) Red Blood Count 2.58 MIL/MM3 (4.50-5.90) Hemoglobin 8.2 GM/DL (13.0-17.0) Hematocrit 25.9 % (39.0-51.0) Mean Corpuscular Volume 100.3 FL (80.0-100.0) Mean Corpuscular Hemoglobin 31.9 PG (27.0-34.0) Mean Corpuscular Hemoglobin Concent 31.8 % (32.0-36.0) Red Cell Distribution Width 15.5 % (11.6-17.2) Platelet Count 379 TH/MM3 (150-450) Mean Platelet Volume 8.2 FL (7.0-11.0) CBC Comment AUTO DIFF Differential Total Cells Counted 100 Neutrophils % (Manual) 87 % (16-70) Band Neutrophils % 3 % (0-6) Lymphocytes % 6 % (9-44) Monocytes % 3 % (0-8) Neutrophils # (Manual) 15.7 TH/MM3 (1.8-7.7) Myelocytes 1 % (0-0) Nucleated Red Blood Cells 5 /100 WBC (0-0) Differential Comment FINAL DIFF MANUAL Toxic Granulation 1+ (NORMAL) Platelet Estimate NORMAL (NORMAL) Platelet Morphology Comment NORMAL (NORMAL) Basophilic Stippling FAINT (NORMAL) Acanthocytes 1+ (NORMAL) Keratocytes OCC (NORMAL) Blood Urea Nitrogen 52 MG/DL (7-18) Creatinine 3.79 MG/DL (0.60-1.30) Random Glucose 209 MG/DL (74-106) Albumin 1.9 GM/DL (3.4-5.0) Calcium Level 9.7 MG/DL (8.5-10.1) Phosphorus Level 3.9 MG/DL (2.5-4.9) Sodium Level 139 MEQ/L (136-145) Potassium Level 3.7 MEQ/L (3.5-5.1) Chloride Level 103 MEQ/L (98-107) Carbon Dioxide Level 26.5 MEQ/L (21.0-32.0) Anion Gap 10 MEQ/L (5-15) Estimat Glomerular Filtration Rate 16 ML/MIN (>89) Triglycerides Level 104 MG/DL (42-150) Cholesterol Level 71 MG/DL (120-200) LDL Cholesterol 14 MG/DL (0-99) HDL Cholesterol 36.6 MG/DL (40.0-60.0) Cholesterol/HDL Ratio 1.93 RATIO Lipase 887 U/L (73-393) Result Diagram: 04/20/17 0545 04/20/17 0545 Procedures 04/17/2017: Left IJ CVL placement 04/17/2017: Orotracheal intubation . Assessment and Plan Disease Oriented Problem List: (1) Hypovolemic shock (2) Coagulopathy (3) Respiratory failure (4) Epistaxis (5) ESRD (end stage renal disease) on dialysis Symptom Scale: (1) Debility 0-10 Scale: Unable to quantify (2) Pain 0-10 Scale: Unable to quantify (3) Encephalopathy 0-10 Scale: Unable to quantify Pertinent Non-Medical Issues Psychosocial: Patient and his are originally from [place]. This was a second marriage for both of them and they have now been for 40+ years. He has 4 children and 2 stepchildren; when they got just the children's ages range from 2 years to preteens. 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 . . Important Contacts Aylin Roberto, : [phone] . Prognosis Patient is a 76-year-old male with a complex medical history including ESRD on hemodialysis. Admitted with epistaxis, coagulopathy, pneumonia and bacteremia status post cardiopulmonary arrest 2. Patient is at high risk for ongoing complications and Escherichia coli secondary to his advanced age and deconditioned status. . Code Status: Full Code Plan * ALTERNATE CODE-INTUBATION ONLY * Decision-making: Per [place] statutes, in the absence of written advanced directives healthcare proxy decision-making falls to the patient's * Discussed the process of cardio pulmonary resuscitation with the patient's status post cardiac arrest 2. Patient's states she feels her has been put through enough. Patient is currently intubated. She requests the patient's CODE STATUS be changed to ALTERNATE CODE-INTUBATION ONLY. In the event the patient's heart stops again, she requests that he be allowed to pass peacefully and naturally without further aggressive interventions. Should the patient be accidentally extubated, she would want him to be reintubated at this time. * Goals remain aggressive up to the point of cardiopulmonary resuscitation. * Discussed patient with bedside nurse (Gila) and Dr. Cantu * Palliative care met with patient's , contact information provided. * Symptom management-pain: Patient is off sedation, showing no nonverbal signs or symptoms of pain on exam. History of moderate to severe arthritic pain that significantly reduces patient's activity level. Possible contributing factors include respiratory distress, infections, intubation, immobility, bedbound status, invasiveness lines and recent chest compressions secondary to CPR. Acetaminophen and morphine are available PRN; none has been administered within the past 24 hours. Palliative care will will monitor PRN requirements and make recommendations as indicated. * Symptom management-debility: Patient has a history of declining performance status and marginal nutritional status but was making some improvement until this acute episode. Patient uses a power scooter/wheelchair to get around. It is unclear if the patient will tolerate rehabilitation at this time. * Symptom management-encephalopathy: Encephalopathic status post cardiopulmonary arrest. Sedation was held earlier this afternoon. Patient now nodding/shaking head to yes no questions and consistently following commands. * Palliative care will continue to follow this patient throughout his hospitalization to establish trust, assist with symptom management and clarification of medical treatment goals. . Cristy Gaxiola Apr 20, 2017 14:35
[2017-04-20 15:46] LABS: PTH RELATED PEPTIDE 0.7 pmol/L (<2.0)
--- NOTE | 2017-04-20 16:46 | HHI.IDPN ---
Note Infectious Disease Note Patient remains on vent. No distress. Awakens and follows commands. Afebrile. WBC has increased. 76-year-old white male who was admitted to the hospital on 04/10 with epistaxis. The patient has end-stage renal disease and undergoes hemodialysis. When he was evaluated in the emergency department, he had a brief cardiopulmonary arrest and was intubated. PAST MEDICAL HISTORY: 1. Hypertension. 2. Diabetes mellitus. 3. Coronary artery disease. 4. Dyslipidemia. 5. End-stage renal disease. 6. Benign prostate hypertrophy. 7. History of left renal cell carcinoma. 8. Splenectomy. 9. Appendectomy. ALLERGIES: NO KNOWN DRUG ALLERGIES. ANTIBIOTICS: Vancomycin with dialysis. Pip/Tazo. Zithromax. OBJECTIVE: Vital Signs Date Time Temp Pulse Resp B/P (MAP) Pulse Ox O2 Delivery O2 Flow Rate FiO2 04/20/17 16:00 98.4 85 16 158/77 (104) 94 04/20/17 16:00 60 04/20/17 16:00 85 04/20/17 14:00 78 04/20/17 13:42 15 04/20/17 12:48 95 40 04/20/17 12:00 73 04/20/17 12:00 98.5 73 15 135/63 (87) 96 04/20/17 12:00 50 04/20/17 11:00 45 04/20/17 10:00 74 04/20/17 08:35 96 60 04/20/17 08:00 60 04/20/17 08:00 75 04/20/17 08:00 98.5 70 16 137/65 (89) 94 04/20/17 07:00 95 Mechanical Ventilator 65 04/20/17 06:00 68 04/20/17 04:00 65 04/20/17 04:00 76 04/20/17 04:00 98.0 76 15 147/67 (93) 96 04/20/17 03:46 96 65 04/20/17 02:00 72 04/20/17 00:38 96 65 04/20/17 00:00 65 04/20/17 00:00 98.2 75 15 139/65 (89) 96 04/20/17 00:00 75 04/19/17 22:00 82 04/19/17 20:45 35 04/19/17 20:34 95 35 04/19/17 20:00 35 04/19/17 20:00 98.4 68 8 151/70 (97) 94 04/19/17 20:00 68 04/19/17 19:00 95 Mechanical Ventilator 35 04/19/17 18:00 70 Laboratory Tests Test 04/19/17 05:50 04/20/17 05:45 White Blood Count 13.6 TH/MM3 17.3 TH/MM3 Red Blood Count 2.53 MIL/MM3 2.58 MIL/MM3 Hemoglobin 8.4 GM/DL 8.2 GM/DL Hematocrit 25.0 % 25.9 % Mean Corpuscular Volume 98.7 FL 100.3 FL Mean Corpuscular Hemoglobin 33.1 PG 31.9 PG Mean Corpuscular Hemoglobin Concent 33.6 % 31.8 % Red Cell Distribution Width 15.3 % 15.5 % Platelet Count 419 TH/MM3 379 TH/MM3 Mean Platelet Volume 7.9 FL 8.2 FL Neutrophils (%) (Auto) 87.7 % Lymphocytes (%) (Auto) 6.3 % Monocytes (%) (Auto) 5.4 % Eosinophils (%) (Auto) 0.3 % Basophils (%) (Auto) 0.3 % Neutrophils # (Auto) 11.9 TH/MM3 Lymphocytes # (Auto) 0.8 TH/MM3 Monocytes # (Auto) 0.7 TH/MM3 Eosinophils # (Auto) 0.0 TH/MM3 Basophils # (Auto) 0.0 TH/MM3 CBC Comment AUTO DIFF AUTO DIFF Differential Total Cells Counted 100 100 Neutrophils % (Manual) 86 % 87 % Band Neutrophils % 2 % 3 % Lymphocytes % 8 % 6 % Monocytes % 3 % 3 % Eosinophils % 1 % Neutrophils # (Manual) 12.0 TH/MM3 15.7 TH/MM3 Nucleated Red Blood Cells 13 /100 WBC 5 /100 WBC Differential Comment FINAL DIFF MANUAL FINAL DIFF MANUAL Platelet Estimate NORMAL NORMAL Platelet Morphology Comment ENLARGED NORMAL Polychromasia 2.0 % Acanthocytes OCC 1+ Myelocytes 1 % Toxic Granulation 1+ Basophilic Stippling FAINT Keratocytes OCC Laboratory Tests Test 04/19/17 05:50 04/20/17 05:45 04/20/17 14:00 Blood Urea Nitrogen 36 MG/DL 52 MG/DL Creatinine 2.78 MG/DL 3.79 MG/DL Random Glucose 259 MG/DL 209 MG/DL 166 MG/DL Albumin 1.9 GM/DL 1.9 GM/DL Calcium Level 9.5 MG/DL 9.7 MG/DL Phosphorus Level 2.7 MG/DL 3.9 MG/DL Sodium Level 141 MEQ/L 139 MEQ/L Potassium Level 3.4 MEQ/L 3.7 MEQ/L Chloride Level 101 MEQ/L 103 MEQ/L Carbon Dioxide Level 29.0 MEQ/L 26.5 MEQ/L Anion Gap 11 MEQ/L 10 MEQ/L Estimat Glomerular Filtration Rate 22 ML/MIN 16 ML/MIN Triglycerides Level 110 MG/DL 104 MG/DL Cholesterol Level 71 MG/DL LDL Cholesterol 14 MG/DL HDL Cholesterol 36.6 MG/DL Cholesterol/HDL Ratio 1.93 RATIO Lipase 887 U/L Microbiology Date/Time Source Procedure Growth Status 04/17/17 11:01 Bronchial Washings Right Mid Lobe Fungal Smear - Final NO FUNGAL ELEMENTS SEEN. Resulted 04/17/17 11:01 Bronchial Washings Right Mid Lobe Fungal Culture Pending Resulted 04/17/17 11:01 Bronchial Washings Right Mid Lobe Acid Fast Stain Pending Received 04/17/17 11:01 Bronchial Washings Right Mid Lobe Mycobacterial Culture Pending Received 04/17/17 11:01 Bronchial Washings Right Mid Lobe Gram Stain - Final Complete 04/17/17 11:01 Bronchial Washings Right Mid Lobe Bronchial Culture - Final HEAVY GROWTH NORMAL RESPIRATORY ARABELLA Complete Microbiology Date/Time Source Procedure Growth Status 04/17/17 11:01 Bronchial Washings Right Mid Lobe Fungal Smear - Final NO FUNGAL ELEMENTS SEEN. Resulted 04/17/17 11:01 Bronchial Washings Right Mid Lobe Fungal Culture Pending Resulted 04/17/17 11:01 Bronchial Washings Right Mid Lobe Acid Fast Stain Pending Received 04/17/17 11:01 Bronchial Washings Right Mid Lobe Mycobacterial Culture Pending Received 04/17/17 11:01 Bronchial Washings Right Mid Lobe Gram Stain - Final Resulted 04/17/17 11:01 Bronchial Washings Right Mid Lobe Bronchial Culture - Preliminary HEAVY GROWTH NORMAL RESPIRATORY ARABELLA... Resulted Microbiology Date/Time Source Procedure Growth Status 04/14/17 09:38 Blood Peripheral Aerobic Blood Culture Pending Received 04/14/17 09:38 Blood Peripheral Anaerobic Blood Culture Pending Received 04/13/17 17:10 Blood Peripheral Aerobic Blood Culture - Preliminary NO GROWTH IN 1 DAY Resulted 04/13/17 17:10 Blood Peripheral Anaerobic Blood Culture - Preliminary NO GROWTH IN 1 DAY Resulted 04/11/17 20:15 Blood Peripheral Aerobic Blood Culture - Final Staph Sp Coagulase Negative Complete 04/11/17 20:15 Anaerobic Blood Culture - Final Staphylococcus Epidermidis Complete 04/11/17 20:10 Blood Peripheral Aerobic Blood Culture - Final Staph Sp Coagulase Negative Complete 04/11/17 20:10 Anaerobic Blood Culture - Final Staphylococcus Epidermidis Complete 04/11/17 20:10 Sputum Endotracheal Gram Stain - Final Complete 04/11/17 20:10 Sputum Endotracheal Sputum Culture - Final HEAVY GROWTH NORMAL RESPIRATORY ARABELLA Complete 04/12/17 05:58 Urine Catheterized Urine Urine Culture - Final NO GROWTH IN 48 HOURS. Complete IMAGING: Lower Extremity Ultrasound 04/18/17 0600 Signed Impressions: Service Date/Time: Tuesday, April 18, 2017 08:08 - CONCLUSION: 1. No sonographic evidence for lower extremity DVT. Cristobal Simpson MD Chest X-Ray 04/18/17 0600 Signed Impressions: Service Date/Time: Tuesday, April 18, 2017 04:17 - CONCLUSION: 1. Right lower lobe atelectasis versus pneumonia. There has been no significant change when compared to the prior exam. Michael Bhatt MD Abdomen/Pelvis CT 04/18/17 0000 Signed Impressions: Service Date/Time: Tuesday, April 18, 2017 13:08 - CONCLUSION: Probable impaction with large bolus of stool in the rectum Scattered stool throughout the remainder of the colon Nasogastric tube across the GE junction There is no intra-abdominal abscess. Anthony Claros MD FACR Chest X-Ray 04/17/17 0948 Signed Impressions: Service Date/Time: Monday, April 17, 2017 09:59 - CONCLUSION: 1. Worsening right basilar patchiness consistent with possible worsening pneumonia and/or atelectasis. Clinical correlation is recommended. 2. Elevation of the right hemidiaphragm. 3. Endotracheal tube and left internal jugular central line are in good positions. 4. Stable cardiomegaly. 5. Degenerative changes and scoliosis of the thoracolumbar spine. Winston Grande MD Chest X-Ray 04/17/17 0000 Signed Impressions: Service Date/Time: Monday, April 17, 2017 10:58 - CONCLUSION: 1. There is no evidence of pneumothorax. 2. Worsening left lower lobe atelectasis versus pneumonia Michael Bhatt MD Chest X-Ray 04/17/17 0000 Signed Impressions: Service Date/Time: Monday, April 17, 2017 08:38 - CONCLUSION: No significant change compared to 04/16/17. Winston Grande MD Brain MRI 04/17/17 0000 Signed Impressions: Service Date/Time: Monday, April 17, 2017 16:21 - CONCLUSION: 1. Possible normal pressure hydrocephalus. Correlation with clinical findings is necessary. 2. No evidence of acute intracranial pathology. No masses are identified. Michael Bhatt MD Chest X-Ray 04/16/17 0600 Signed Impressions: Service Date/Time: Sunday, April 16, 2017 04:27 - CONCLUSION: Persistent bilateral lower lung zone consolidation versus atelectasis. Increase in aeration of the right lung base. Vin Solis MD PHYSICAL EXAMINATION: GENERAL: No acute distress. Responsive. HEENT: No icterus. mucosa slightly dry. NECK: No adenopathy or swelling. LUNGS: Decreased clear breath sounds. HEART: Irregular. S1 and S2. No audible murmur. ABDOMEN: Bowel sounds present, soft, no tenderness. EXTREMITIES: No clubbing, cyanosis or edema. AV fistula at the right upper extremity appears intact. NEUROLOGIC: sedated. PSYCHIATRIC: Calm. IMPRESSION: 1. Coagulase-negative Staph bacteremia. Patient developed fever and leukocytosis and had episode of cardiopulmonary arrest. 2. End-stage renal disease on hemodialysis. 3. Thrombus in distal cephalic LUE. 4. Abnormal CXR ? pneumonia. 5. Respiratory failure - mucous plug. Probable aspiration. 6. Leukocytosis. persistent. ? infection vs reactive. RECOMMENDATIONS: 1. Continue Vancomycin with dialysis until 04/25/17. 2. Continue Zosyn for pulmonary coverage. 3. Continue Zithromax PO. Additional pulmonary coverage. 4. Monitor the white blood cell count. 5. Monitor clinical status. Trell Simon MD Apr 20, 2017 16:46
[2017-04-20] MEDS ORDERED: MIDAZOLAM HCL 5 MG/ML VIAL (1 ML) ONE (17:09)
[2017-04-20] MEDS ORDERED: SODIUM BICARBONATE 8.4% INJ 50 MEQ/50 ML SYR ONE (17:10)
[2017-04-20] MEDS ORDERED: ROCURONIUM INJ 50 MG/5 ML VIAL ONE (17:10)
--- NOTE | 2017-04-20 17:12 | HHI.HCPN ---
Reason for visit a. To assist with evaluation and management of symptoms including: Debility , encephalopathy, pain b. To assist medical decision maker(s) with: better understanding of current medical conditions; weighing benefits/burdens of medical treatment options; making medical treatment decisions. Subjective/Interval History Mr. Avila is a 76-year-old male with ESRD admitted with epistaxis, coagulopathy, PNA and bacteremia status post CPR 2. Follow-up visit for symptom management and clarification of medical treatment goals. Patient remains intubated on mechanical ventilation, receiving hemodialysis. Off sedation. Patient is lethargic, arouses to verbal stimuli. Answers simple questions,not following commands. EEG revealed no evidence of seizures, moderate slowing CT head on admission revealed no acute intracranial findings, there was slight degree of brain atrophy, chronic small vessel ischemic changes were noted. MRI brain 04/17 revealed possible normal pressure hydrocephalus Afebrile. Follow-up blood cultures on 04/14/2017 negative 5 days. Bronchial washings remain negative to date. Follow-up chest x-ray on 04/20/2017 showing right lower lobe atelectasis versus pneumonia, no significant change in comparison to prior exam. Patient remains on Zosyn, Zithromax and vancomycin with dialysis. Infectious disease following. WBC: 17.3, hemoglobin 8.2, hematocrit 25.9, platelets 379 Sodium: 139, potassium 3.7, chloride 103, carbon dioxide 26.5, glucose 209, calcium 9.7, phosphorus 3.9 BUN: 52, creatinine 3.79, GFR 16 Albumin: 1.9 Patient remains intubated on mechanical ventilator; FiO2 decreased from 60% to 40% overnight. Plan to attempt PSV trials later today. . Family/friend interactions Attempted to contact patient's , message left on voicemail with palliative care contact information. . Advance Directives Living Will: Never completed Health Care Surrogate: Never completed Durable Power of [employer] Director: Never completed Advance Directive Specifics Health Care Surrogate(s): Per [place] statutes, in the absence of written advanced directives healthcare proxy decision-making falls to the patient's . . Documented care wishes: No known documented care wishes have been completed. . Objective Vital Signs Date Time Temp Pulse Resp B/P (MAP) Pulse Ox O2 Delivery O2 Flow Rate FiO2 04/20/17 16:00 98.4 85 16 158/77 (104) 94 04/20/17 16:00 60 04/20/17 16:00 85 04/20/17 14:00 78 04/20/17 13:42 15 04/20/17 12:48 95 40 04/20/17 12:00 73 04/20/17 12:00 98.5 73 15 135/63 (87) 96 04/20/17 12:00 50 04/20/17 11:00 45 04/20/17 10:00 74 04/20/17 08:35 96 60 04/20/17 08:00 60 04/20/17 08:00 75 04/20/17 08:00 98.5 70 16 137/65 (89) 94 04/20/17 07:00 95 Mechanical Ventilator 65 04/20/17 06:00 68 04/20/17 04:00 65 04/20/17 04:00 76 04/20/17 04:00 98.0 76 15 147/67 (93) 96 04/20/17 03:46 96 65 04/20/17 02:00 72 04/20/17 00:38 96 65 04/20/17 00:00 65 04/20/17 00:00 98.2 75 15 139/65 (89) 96 04/20/17 00:00 75 04/19/17 22:00 82 04/19/17 20:45 35 04/19/17 20:34 95 35 04/19/17 20:00 35 04/19/17 20:00 98.4 68 8 151/70 (97) 94 04/19/17 20:00 68 04/19/17 19:00 95 Mechanical Ventilator 35 04/19/17 18:00 70 Intake & Output 04/20/17 04/20/17 07:00 19:00 Intake Total 2670 ml Output Total 0 ml 2000 ml Balance 2670 ml -2000 ml Intake Oral 0 ml IV Total 2173 ml Tube Feeding 437 ml Tube Irrigant 60 ml Output Urine Total 0 ml Hemodialysis 2000 ml # Bowel Movements 2 . Physical Exam CONSTITUTIONAL/GENERAL: This is a frail appearing, elderly male patient currently intubated on mechanical ventilation TUBES/LINES/DRAINS: CVL, ETT, OGT, PIV x 2, AV fistula, soft restraints SKIN: Ecchymoses on upper extremities. No wounds seen anteriorly. Skin temperature appropriate. Not diaphoretic. HEAD: Atraumatic. Normocephalic. EYES: Pupils equal and round and reactive. No scleral icterus. No injection or drainage. Fundi not examined. ENT: Hearing grossly normal. No epistaxis. Mucous membranes dry NECK: Trachea midline. CARDIOVASCULAR: Atrial fibrillation . Peripheral pulses symmetric. RESPIRATORY/CHEST: Intubated on mechanical ventilation. Clear to auscultation GASTROINTESTINAL: Abdomen soft, non-tender, nondistended. No guarding. Bowel sounds present. GENITOURINARY: Without palpable bladder distension. Receiving hemodialysis. MUSCULOSKELETAL: Extremities without clubbing or cyanosis LYMPHATICS: No palpable cervical or supraclavicular adenopathy. NEUROLOGICAL: Lethargic. Opens eyes briefly to verbal stimuli, answering questions. Does not follow commands. PSYCHIATRIC: Unable to assess secondary to patient's clinical condition . Diagnostic Tests Laboratory Laboratory Tests Test 04/17/17 22:50 04/18/17 04:45 04/18/17 07:55 04/19/17 05:50 Blood Urea Nitrogen 58 MG/DL (7-18) 61 MG/DL (7-18) 36 MG/DL (7-18) Creatinine 4.22 MG/DL (0.60-1.30) 4.31 MG/DL (0.60-1.30) 2.78 MG/DL (0.60-1.30) Random Glucose 182 MG/DL (74-106) 174 MG/DL (74-106) 259 MG/DL (74-106) Calcium Level 10.5 MG/DL (8.5-10.1) 10.3 MG/DL (8.5-10.1) 9.5 MG/DL (8.5-10.1) Phosphorus Level 5.7 MG/DL (2.5-4.9) 5.2 MG/DL (2.5-4.9) 2.7 MG/DL (2.5-4.9) Magnesium Level 2.2 MG/DL (1.5-2.5) 2.2 MG/DL (1.5-2.5) Sodium Level 142 MEQ/L (136-145) 143 MEQ/L (136-145) 141 MEQ/L (136-145) Potassium Level 3.5 MEQ/L (3.5-5.1) 3.4 MEQ/L (3.5-5.1) 3.4 MEQ/L (3.5-5.1) Chloride Level 102 MEQ/L (98-107) 103 MEQ/L (98-107) 101 MEQ/L (98-107) Carbon Dioxide Level 27.8 MEQ/L (21.0-32.0) 24.2 MEQ/L (21.0-32.0) 29.0 MEQ/L (21.0-32.0) Anion Gap 12 MEQ/L (5-15) 16 MEQ/L (5-15) 11 MEQ/L (5-15) Estimat Glomerular Filtration Rate 14 ML/MIN (>89) 22 ML/MIN (>89) Troponin I 0.39 NG/ML (0.02-0.05) 0.37 NG/ML (0.02-0.05) Total Protein 6.1 GM/DL (6.0-7.6) 5.9 GM/DL (6.4-8.2) Albumin 3.31 GM/DL (3.50-5.00) 1.9 GM/DL (3.4-5.0) 1.9 GM/DL (3.4-5.0) Albumin/Globulin Ratio 1.18 (1.39-2.23) Zpccs-5-Dclfekbol 0.42 GM/DL (0.11-0.29) Iqzkd-6-Wrfuaxpii 0.87 GM/DL (0.22-1.00) Beta Globulins 0.60 GM/DL (0.53-1.03) Gamma Globulins 0.91 GM/DL (0.50-1.39) Electrophoresis Pathologist Comment Lipase 2124 U/L (73-393) 1743 U/L (73-393) Thyroid Stimulating Hormone 3rd Gen 1.520 uIU/ML (0.358-3.740) White Blood Count 15.2 TH/MM3 (4.0-11.0) 13.6 TH/MM3 (4.0-11.0) Red Blood Count 2.61 MIL/MM3 (4.50-5.90) 2.53 MIL/MM3 (4.50-5.90) Hemoglobin 8.1 GM/DL (13.0-17.0) 8.4 GM/DL (13.0-17.0) Hematocrit 25.7 % (39.0-51.0) 25.0 % (39.0-51.0) Mean Corpuscular Volume 98.6 FL (80.0-100.0) 98.7 FL (80.0-100.0) Mean Corpuscular Hemoglobin 31.2 PG (27.0-34.0) 33.1 PG (27.0-34.0) Mean Corpuscular Hemoglobin Concent 31.7 % (32.0-36.0) 33.6 % (32.0-36.0) Red Cell Distribution Width 14.7 % (11.6-17.2) 15.3 % (11.6-17.2) Platelet Count 424 TH/MM3 (150-450) 419 TH/MM3 (150-450) Mean Platelet Volume 7.8 FL (7.0-11.0) 7.9 FL (7.0-11.0) CBC Comment AUTO DIFF AUTO DIFF Differential Total Cells Counted 100 100 Neutrophils % (Manual) 84 % (16-70) 86 % (16-70) Band Neutrophils % 1 % (0-6) 2 % (0-6) Lymphocytes % 7 % (9-44) 8 % (9-44) Monocytes % 4 % (0-8) 3 % (0-8) Eosinophils % 4 % (0-4) 1 % (0-4) Neutrophils # (Manual) 12.9 TH/MM3 (1.8-7.7) 12.0 TH/MM3 (1.8-7.7) Nucleated Red Blood Cells 13 /100 WBC (0-0) 13 /100 WBC (0-0) Differential Comment FINAL DIFF MANUAL FINAL DIFF MANUAL Platelet Estimate NORMAL (NORMAL) NORMAL (NORMAL) Platelet Morphology Comment NORMAL (NORMAL) ENLARGED (NORMAL) Polychromasia 2.1 % (0.0-1.9) 2.0 % (0.0-1.9) Ovalocytes 1+ (NORMAL) [place] Cells 1+ (NORMAL) Alkaline Phosphatase 157 U/L (45-117) Aspartate Amino Transf (AST/SGOT) 20 U/L (15-37) Alanine Aminotransferase (ALT/SGPT) 14 U/L (12-78) Total Bilirubin 1.2 MG/DL (0.2-1.0) Lactic Acid Level 1.2 mmol/L (0.4-2.0) Prothrombin Time 14.7 SEC (9.8-11.6) 12.6 SEC (9.8-11.6) Prothromb Time International Ratio 1.5 RATIO 1.2 RATIO Activated Partial Thromboplast Time 31.1 SEC (24.3-30.1) 28.8 SEC (24.3-30.1) Neutrophils (%) (Auto) 87.7 % (16.0-70.0) Lymphocytes (%) (Auto) 6.3 % (9.0-44.0) Monocytes (%) (Auto) 5.4 % (0.0-8.0) Eosinophils (%) (Auto) 0.3 % (0.0-4.0) Basophils (%) (Auto) 0.3 % (0.0-2.0) Neutrophils # (Auto) 11.9 TH/MM3 (1.8-7.7) Lymphocytes # (Auto) 0.8 TH/MM3 (1.0-4.8) Monocytes # (Auto) 0.7 TH/MM3 (0-0.9) Eosinophils # (Auto) 0.0 TH/MM3 (0-0.4) Basophils # (Auto) 0.0 TH/MM3 (0-0.2) Acanthocytes OCC (NORMAL) Fibrinogen 640 mg/dL (227-377) Triglycerides Level 110 MG/DL (42-150) Test 04/19/17 22:25 04/20/17 05:45 04/20/17 14:00 Blood Gas Puncture Site LT BRACHIAL Blood Gas Patient Temperature 98.6 Blood Gas HCO3 28 mmol/L (22-26) Blood Gas Base Excess 4.3 mmol/L (-2-2) Blood Gas Oxygen Saturation 91 % (90-100) Arterial Blood pH 7.48 (7.380-7.420) Arterial Blood Partial Pressure CO2 38 mmHg (38-42) Arterial Blood Partial Pressure O2 66 mmHg (61-120) Arterial Blood Oxygen Content 11.0 Vol % (12.0-20.0) Arterial Blood Carboxyhemoglobin 1.5 % (0-4) Arterial Blood Methemoglobin 1.2 % (0-2) Blood Gas Hemoglobin 8.5 G/DL (12.0-16.0) Oxygen Delivery Device VENTILATOR Blood Gas Ventilator Setting SEE COMMENT Blood Gas Inspired Oxygen 65 % White Blood Count 17.3 TH/MM3 (4.0-11.0) Red Blood Count 2.58 MIL/MM3 (4.50-5.90) Hemoglobin 8.2 GM/DL (13.0-17.0) Hematocrit 25.9 % (39.0-51.0) Mean Corpuscular Volume 100.3 FL (80.0-100.0) Mean Corpuscular Hemoglobin 31.9 PG (27.0-34.0) Mean Corpuscular Hemoglobin Concent 31.8 % (32.0-36.0) Red Cell Distribution Width 15.5 % (11.6-17.2) Platelet Count 379 TH/MM3 (150-450) Mean Platelet Volume 8.2 FL (7.0-11.0) CBC Comment AUTO DIFF Differential Total Cells Counted 100 Neutrophils % (Manual) 87 % (16-70) Band Neutrophils % 3 % (0-6) Lymphocytes % 6 % (9-44) Monocytes % 3 % (0-8) Neutrophils # (Manual) 15.7 TH/MM3 (1.8-7.7) Myelocytes 1 % (0-0) Nucleated Red Blood Cells 5 /100 WBC (0-0) Differential Comment FINAL DIFF MANUAL Toxic Granulation 1+ (NORMAL) Platelet Estimate NORMAL (NORMAL) Platelet Morphology Comment NORMAL (NORMAL) Basophilic Stippling FAINT (NORMAL) Acanthocytes 1+ (NORMAL) Keratocytes OCC (NORMAL) Blood Urea Nitrogen 52 MG/DL (7-18) Creatinine 3.79 MG/DL (0.60-1.30) Random Glucose 209 MG/DL (74-106) 166 MG/DL (74-106) Albumin 1.9 GM/DL (3.4-5.0) Calcium Level 9.7 MG/DL (8.5-10.1) Phosphorus Level 3.9 MG/DL (2.5-4.9) Sodium Level 139 MEQ/L (136-145) Potassium Level 3.7 MEQ/L (3.5-5.1) Chloride Level 103 MEQ/L (98-107) Carbon Dioxide Level 26.5 MEQ/L (21.0-32.0) Anion Gap 10 MEQ/L (5-15) Estimat Glomerular Filtration Rate 16 ML/MIN (>89) Triglycerides Level 104 MG/DL (42-150) Cholesterol Level 71 MG/DL (120-200) LDL Cholesterol 14 MG/DL (0-99) HDL Cholesterol 36.6 MG/DL (40.0-60.0) Cholesterol/HDL Ratio 1.93 RATIO Lipase 887 U/L (73-393) . Result Diagram: 04/20/17 0545 04/20/17 1400 Imaging Last 72 hours Impressions Chest X-Ray 04/20/17 0600 Signed Impressions: Service Date/Time: Thursday, April 20, 2017 04:42 - CONCLUSION: 1. Right lower lobe atelectasis versus pneumonia. There has been no significant change when compared to the prior exam. Michael Bhatt MD Lower Extremity Ultrasound 04/18/17 06 Signed Impressions: Service Date/Time: Tuesday, April 18, 2017 08:08 - CONCLUSION: 1. No sonographic evidence for lower extremity DVT. Cristobal Simpson MD Chest X-Ray 04/18/17 06 Signed Impressions: Service Date/Time: Tuesday, April 18, 2017 04:17 - CONCLUSION: 1. Right lower lobe atelectasis versus pneumonia. There has been no significant change when compared to the prior exam. Michael Bhatt MD Abdomen/Pelvis CT 04/18/17 0000 Signed Impressions: Service Date/Time: Tuesday, April 18, 2017 13:08 - CONCLUSION: Probable impaction with large bolus of stool in the rectum Scattered stool throughout the remainder of the colon Nasogastric tube across the GE junction There is no intra-abdominal abscess. Anthony Claros MD FACR . Procedures 04/17/2017: Left IJ CVL placement 04/17/2017: Orotracheal intubation . Assessment and Plan Disease Oriented Problem List: (1) Hypovolemic shock (2) Coagulopathy (3) Respiratory failure (4) Epistaxis (5) ESRD (end stage renal disease) on dialysis Symptom Scale: (1) Debility 0-10 Scale: Unable to quantify (2) Pain 0-10 Scale: Unable to quantify (3) Encephalopathy 0-10 Scale: Unable to quantify Pertinent Non-Medical Issues Psychosocial: Patient and his are originally from [place]. This was a second marriage for both of them and they have now been for 40+ years. He has 4 children and 2 stepchildren; when they got just the children's ages range from 2 years to preteens. 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 . . Important Contacts Aylin Roberto, : [phone] . Prognosis Patient is a 76-year-old male with a complex medical history including ESRD on hemodialysis. Admitted with epistaxis, coagulopathy, pneumonia and bacteremia status post cardiopulmonary arrest 2. Patient is at high risk for ongoing complications and Escherichia coli secondary to his advanced age and deconditioned status. . Code Status: Full Code Plan * ALTERNATE CODE * Decision-making: Per [place] statutes, in the absence of written advanced directives healthcare proxy decision-making falls to the patient's * Discussed the process of cardio pulmonary resuscitation with the patient's status post cardiac arrest 2. Patient's states she feels her has been put through enough. Patient is currently intubated. She requests the patient's CODE STATUS be changed to ALTERNATE CODE.In the event the patient's heart stops again, she requests that he be allowed to pass peacefully and naturally without further aggressive interventions. Should the patient self/accidentally extubate, she would want him to be reintubated at this time. * Goals remain aggressive up to the point of cardiopulmonary resuscitation. * Discussed patient with bedside nurse (Seven), HD nurse and Dr. Cantu * Attempted to contact patient's , message left on voicemail with palliative care contact information. * Symptom management-pain: Patient is off sedation, showing no nonverbal signs or symptoms of pain on exam. History of moderate to severe arthritic pain that significantly reduces patient's activity level. Possible contributing factors include respiratory distress, infections, intubation, immobility, bedbound status, invasiveness lines and recent chest compressions secondary to CPR. Acetaminophen and morphine are available PRN; patient received 1 mg morphine 3 over the previous 24 hours. Palliative care will will monitor PRN requirements and make recommendations as indicated. * Symptom management-debility: Patient has a history of declining performance status and marginal nutritional status but was making some improvement until this acute episode. Patient uses a power scooter/wheelchair to get around. It is unclear if the patient will tolerate rehabilitation at this time. * Symptom management-encephalopathy: Encephalopathic status post cardiopulmonary arrest. Patient opens eyes briefly to verbal stimuli, answering simple questions. EEG revealed no evidence of seizures, moderate slowing CT head on admission revealed no acute intracranial findings, there was slight degree of brain atrophy, chronic small vessel ischemic changes were noted. 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 * Palliative care will continue to follow this patient throughout his hospitalization to establish trust, assist with symptom management and clarification of medical treatment goals. Cristy Gaxiola Apr 20, 2017 17:12
--- NOTE | 2017-04-20 17:24 | HHI.HCPN ---
Reason for visit a. To assist with evaluation and management of symptoms including: Debility , encephalopathy, pain b. To assist medical decision maker(s) with: better understanding of current medical conditions; weighing benefits/burdens of medical treatment options; making medical treatment decisions. Subjective/Interval History LATE ENTRY FROM 04/19/2017, previous entry was accidently deleted/lost. . Mr. Avila is a 76-year-old male with ESRD admitted with epistaxis, coagulopathy, PNA and bacteremia status post CPR 2. Follow-up visit for symptom management and clarification of medical treatment goals. Patient remains intubated on mechanical ventilation. Answers simple questions, not following commands. Nursing reports the patient has indicated he has had enough; he is painful and does not want to continue HD. WBC: 13, hemoglobin 8.2, hematocrit 25.9, platelets 379 Sodium: 141, potassium 3.4, chloride 11, carbon dioxide 29.0, glucose 259, calcium 9.5, phosphorus 2.7 BUN: 36, creatinine 2.78, GFR 22 Albumin: 1.9 Afebrile. Follow-up blood cultures on 04/14/2017 negative 4 days. Bronchial washings remain negative to date. Follow-up chest x-ray on 04/18/2017 showing right lower lobe atelectasis versus pneumonia; no significant change in comparison to prior exam. . Patient remains on Zosyn, Zithromax and vancomycin with dialysis. Infectious disease following. . Family/friend interactions Spoke to via telephone. Updated on clinical condition; answer questions to the best of my ability. Patient's daughter arriving early next week. Plan to readdress goals at that time. Advance Directives Living Will: Never completed Health Care Surrogate: Never completed Durable Power of Electrician Wiring: Never completed Advance Directive Specifics Health Care Surrogate(s): Per [place] statutes, in the absence of written advanced directives healthcare proxy decision-making falls to the patient's . . Documented care wishes: No known documented care wishes have been completed. . Objective Vital Signs Date Time Temp Pulse Resp B/P (MAP) Pulse Ox O2 Delivery O2 Flow Rate FiO2 04/20/17 16:00 98.4 85 16 158/77 (104) 94 04/20/17 16:00 60 04/20/17 16:00 85 04/20/17 14:00 78 04/20/17 13:42 15 04/20/17 12:48 95 40 04/20/17 12:00 73 04/20/17 12:00 98.5 73 15 135/63 (87) 96 04/20/17 12:00 50 04/20/17 11:00 45 04/20/17 10:00 74 04/20/17 08:35 96 60 04/20/17 08:00 60 04/20/17 08:00 75 04/20/17 08:00 98.5 70 16 137/65 (89) 94 04/20/17 07:00 95 Mechanical Ventilator 65 04/20/17 06:00 68 04/20/17 04:00 65 04/20/17 04:00 76 04/20/17 04:00 98.0 76 15 147/67 (93) 96 04/20/17 03:46 96 65 04/20/17 02:00 72 04/20/17 00:38 96 65 04/20/17 00:00 65 04/20/17 00:00 98.2 75 15 139/65 (89) 96 04/20/17 00:00 75 04/19/17 22:00 82 04/19/17 20:45 35 04/19/17 20:34 95 35 04/19/17 20:00 35 04/19/17 20:00 98.4 68 8 151/70 (97) 94 04/19/17 20:00 68 04/19/17 19:00 95 Mechanical Ventilator 35 04/19/17 18:00 70 Intake & Output 04/20/17 04/20/17 07:00 19:00 Intake Total 2670 ml Output Total 0 ml 2000 ml Balance 2670 ml -2000 ml Intake Oral 0 ml IV Total 2173 ml Tube Feeding 437 ml Tube Irrigant 60 ml Output Urine Total 0 ml Hemodialysis 2000 ml # Bowel Movements 2 . Physical Exam CONSTITUTIONAL/GENERAL: This is a frail appearing, elderly male patient currently intubated on mechanical ventilation TUBES/LINES/DRAINS: CVL, ETT, OGT, PIV x 2, AV fistula, soft restraints SKIN: No wounds seen anteriorly. Skin temperature appropriate. Not diaphoretic. HEAD: Atraumatic. Normocephalic. EYES: Pupils equal and round and reactive. No scleral icterus. No injection or drainage. Fundi not examined. ENT: Hearing grossly normal. No epistaxis. NECK: Trachea midline. CARDIOVASCULAR: Irregular rhythm .Peripheral pulses symmetric. RESPIRATORY/CHEST: Intubated on mechanical ventilation. Sounds diminished. GASTROINTESTINAL: Abdomen soft, non-tender, nondistended. No guarding. Bowel sounds present. GENITOURINARY: Without palpable bladder distension. He catheter and nephrostomy tube draining. MUSCULOSKELETAL: Extremities without clubbing or cyanosis LYMPHATICS: No palpable cervical or supraclavicular adenopathy. NEUROLOGICAL: Lethargic. Opens eyes briefly to verbal stimuli, answering questions. Does not follow commands. PSYCHIATRIC: Unable to assess secondary to patient's clinical condition . Diagnostic Tests Laboratory Laboratory Tests Test 04/17/17 22:50 04/18/17 04:45 04/18/17 07:55 04/19/17 05:50 Blood Urea Nitrogen 58 MG/DL (7-18) 61 MG/DL (7-18) 36 MG/DL (7-18) Creatinine 4.22 MG/DL (0.60-1.30) 4.31 MG/DL (0.60-1.30) 2.78 MG/DL (0.60-1.30) Random Glucose 182 MG/DL (74-106) 174 MG/DL (74-106) 259 MG/DL (74-106) Calcium Level 10.5 MG/DL (8.5-10.1) 10.3 MG/DL (8.5-10.1) 9.5 MG/DL (8.5-10.1) Phosphorus Level 5.7 MG/DL (2.5-4.9) 5.2 MG/DL (2.5-4.9) 2.7 MG/DL (2.5-4.9) Magnesium Level 2.2 MG/DL (1.5-2.5) 2.2 MG/DL (1.5-2.5) Sodium Level 142 MEQ/L (136-145) 143 MEQ/L (136-145) 141 MEQ/L (136-145) Potassium Level 3.5 MEQ/L (3.5-5.1) 3.4 MEQ/L (3.5-5.1) 3.4 MEQ/L (3.5-5.1) Chloride Level 102 MEQ/L (98-107) 103 MEQ/L (98-107) 101 MEQ/L (98-107) Carbon Dioxide Level 27.8 MEQ/L (21.0-32.0) 24.2 MEQ/L (21.0-32.0) 29.0 MEQ/L (21.0-32.0) Anion Gap 12 MEQ/L (5-15) 16 MEQ/L (5-15) 11 MEQ/L (5-15) Estimat Glomerular Filtration Rate 14 ML/MIN (>89) 22 ML/MIN (>89) Troponin I 0.39 NG/ML (0.02-0.05) 0.37 NG/ML (0.02-0.05) Total Protein 6.1 GM/DL (6.0-7.6) 5.9 GM/DL (6.4-8.2) Albumin 3.31 GM/DL (3.50-5.00) 1.9 GM/DL (3.4-5.0) 1.9 GM/DL (3.4-5.0) Albumin/Globulin Ratio 1.18 (1.39-2.23) Kjijh-5-Tulkofjrv 0.42 GM/DL (0.11-0.29) Qoarq-5-Mmgnfapjc 0.87 GM/DL (0.22-1.00) Beta Globulins 0.60 GM/DL (0.53-1.03) Gamma Globulins 0.91 GM/DL (0.50-1.39) Electrophoresis Pathologist Comment Lipase 2124 U/L (73-393) 1743 U/L (73-393) Thyroid Stimulating Hormone 3rd Gen 1.520 uIU/ML (0.358-3.740) White Blood Count 15.2 TH/MM3 (4.0-11.0) 13.6 TH/MM3 (4.0-11.0) Red Blood Count 2.61 MIL/MM3 (4.50-5.90) 2.53 MIL/MM3 (4.50-5.90) Hemoglobin 8.1 GM/DL (13.0-17.0) 8.4 GM/DL (13.0-17.0) Hematocrit 25.7 % (39.0-51.0) 25.0 % (39.0-51.0) Mean Corpuscular Volume 98.6 FL (80.0-100.0) 98.7 FL (80.0-100.0) Mean Corpuscular Hemoglobin 31.2 PG (27.0-34.0) 33.1 PG (27.0-34.0) Mean Corpuscular Hemoglobin Concent 31.7 % (32.0-36.0) 33.6 % (32.0-36.0) Red Cell Distribution Width 14.7 % (11.6-17.2) 15.3 % (11.6-17.2) Platelet Count 424 TH/MM3 (150-450) 419 TH/MM3 (150-450) Mean Platelet Volume 7.8 FL (7.0-11.0) 7.9 FL (7.0-11.0) CBC Comment AUTO DIFF AUTO DIFF Differential Total Cells Counted 100 100 Neutrophils % (Manual) 84 % (16-70) 86 % (16-70) Band Neutrophils % 1 % (0-6) 2 % (0-6) Lymphocytes % 7 % (9-44) 8 % (9-44) Monocytes % 4 % (0-8) 3 % (0-8) Eosinophils % 4 % (0-4) 1 % (0-4) Neutrophils # (Manual) 12.9 TH/MM3 (1.8-7.7) 12.0 TH/MM3 (1.8-7.7) Nucleated Red Blood Cells 13 /100 WBC (0-0) 13 /100 WBC (0-0) Differential Comment FINAL DIFF MANUAL FINAL DIFF MANUAL Platelet Estimate NORMAL (NORMAL) NORMAL (NORMAL) Platelet Morphology Comment NORMAL (NORMAL) ENLARGED (NORMAL) Polychromasia 2.1 % (0.0-1.9) 2.0 % (0.0-1.9) Ovalocytes 1+ (NORMAL) Sharon Cells 1+ (NORMAL) Alkaline Phosphatase 157 U/L (45-117) Aspartate Amino Transf (AST/SGOT) 20 U/L (15-37) Alanine Aminotransferase (ALT/SGPT) 14 U/L (12-78) Total Bilirubin 1.2 MG/DL (0.2-1.0) Lactic Acid Level 1.2 mmol/L (0.4-2.0) Prothrombin Time 14.7 SEC (9.8-11.6) 12.6 SEC (9.8-11.6) Prothromb Time International Ratio 1.5 RATIO 1.2 RATIO Activated Partial Thromboplast Time 31.1 SEC (24.3-30.1) 28.8 SEC (24.3-30.1) Neutrophils (%) (Auto) 87.7 % (16.0-70.0) Lymphocytes (%) (Auto) 6.3 % (9.0-44.0) Monocytes (%) (Auto) 5.4 % (0.0-8.0) Eosinophils (%) (Auto) 0.3 % (0.0-4.0) Basophils (%) (Auto) 0.3 % (0.0-2.0) Neutrophils # (Auto) 11.9 TH/MM3 (1.8-7.7) Lymphocytes # (Auto) 0.8 TH/MM3 (1.0-4.8) Monocytes # (Auto) 0.7 TH/MM3 (0-0.9) Eosinophils # (Auto) 0.0 TH/MM3 (0-0.4) Basophils # (Auto) 0.0 TH/MM3 (0-0.2) Acanthocytes OCC (NORMAL) Fibrinogen 640 mg/dL (227-377) Triglycerides Level 110 MG/DL (42-150) Test 04/19/17 22:25 04/20/17 05:45 04/20/17 14:00 Blood Gas Puncture Site LT BRACHIAL Blood Gas Patient Temperature 98.6 Blood Gas HCO3 28 mmol/L (22-26) Blood Gas Base Excess 4.3 mmol/L (-2-2) Blood Gas Oxygen Saturation 91 % (90-100) Arterial Blood pH 7.48 (7.380-7.420) Arterial Blood Partial Pressure CO2 38 mmHg (38-42) Arterial Blood Partial Pressure O2 66 mmHg (61-120) Arterial Blood Oxygen Content 11.0 Vol % (12.0-20.0) Arterial Blood Carboxyhemoglobin 1.5 % (0-4) Arterial Blood Methemoglobin 1.2 % (0-2) Blood Gas Hemoglobin 8.5 G/DL (12.0-16.0) Oxygen Delivery Device VENTILATOR Blood Gas Ventilator Setting SEE COMMENT Blood Gas Inspired Oxygen 65 % White Blood Count 17.3 TH/MM3 (4.0-11.0) Red Blood Count 2.58 MIL/MM3 (4.50-5.90) Hemoglobin 8.2 GM/DL (13.0-17.0) Hematocrit 25.9 % (39.0-51.0) Mean Corpuscular Volume 100.3 FL (80.0-100.0) Mean Corpuscular Hemoglobin 31.9 PG (27.0-34.0) Mean Corpuscular Hemoglobin Concent 31.8 % (32.0-36.0) Red Cell Distribution Width 15.5 % (11.6-17.2) Platelet Count 379 TH/MM3 (150-450) Mean Platelet Volume 8.2 FL (7.0-11.0) CBC Comment AUTO DIFF Differential Total Cells Counted 100 Neutrophils % (Manual) 87 % (16-70) Band Neutrophils % 3 % (0-6) Lymphocytes % 6 % (9-44) Monocytes % 3 % (0-8) Neutrophils # (Manual) 15.7 TH/MM3 (1.8-7.7) Myelocytes 1 % (0-0) Nucleated Red Blood Cells 5 /100 WBC (0-0) Differential Comment FINAL DIFF MANUAL Toxic Granulation 1+ (NORMAL) Platelet Estimate NORMAL (NORMAL) Platelet Morphology Comment NORMAL (NORMAL) Basophilic Stippling FAINT (NORMAL) Acanthocytes 1+ (NORMAL) Keratocytes OCC (NORMAL) Blood Urea Nitrogen 52 MG/DL (7-18) Creatinine 3.79 MG/DL (0.60-1.30) Random Glucose 209 MG/DL (74-106) 166 MG/DL (74-106) Albumin 1.9 GM/DL (3.4-5.0) Calcium Level 9.7 MG/DL (8.5-10.1) Phosphorus Level 3.9 MG/DL (2.5-4.9) Sodium Level 139 MEQ/L (136-145) Potassium Level 3.7 MEQ/L (3.5-5.1) Chloride Level 103 MEQ/L (98-107) Carbon Dioxide Level 26.5 MEQ/L (21.0-32.0) Anion Gap 10 MEQ/L (5-15) Estimat Glomerular Filtration Rate 16 ML/MIN (>89) Triglycerides Level 104 MG/DL (42-150) Cholesterol Level 71 MG/DL (120-200) LDL Cholesterol 14 MG/DL (0-99) HDL Cholesterol 36.6 MG/DL (40.0-60.0) Cholesterol/HDL Ratio 1.93 RATIO Lipase 887 U/L (73-393) Result Diagram: 04/20/17 0545 04/20/17 1400 Procedures 04/17/2017: Left IJ CVL placement 04/17/2017: Orotracheal intubation . Assessment and Plan Disease Oriented Problem List: (1) Hypovolemic shock (2) Coagulopathy (3) Respiratory failure (4) Epistaxis (5) ESRD (end stage renal disease) on dialysis Symptom Scale: (1) Debility 0-10 Scale: Unable to quantify (2) Pain 0-10 Scale: Unable to quantify (3) Encephalopathy 0-10 Scale: Unable to quantify Pertinent Non-Medical Issues Psychosocial: Patient and his are originally from [place]. This was a second marriage for both of them and they have now been for 40+ years. He has 4 children and 2 stepchildren; when they got just the children's ages range from 2 years to preteens. 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 Spiritual: None sikh; patient's refused director software development visits Legal: Her [place] statutes, in the absence of written advanced directives healthcare proxy decision-making falls to the patient's Ethical issues impacting care: No known ethical issues impacting care. . . Important Contacts Aylin Roberto, : [phone] . Prognosis Patient is a 76-year-old male with a complex medical history including ESRD on hemodialysis. Admitted with epistaxis, coagulopathy, pneumonia and bacteremia status post cardiopulmonary arrest 2. Patient is at high risk for ongoing complications and Escherichia coli secondary to his advanced age and deconditioned status. . Code Status: Full Code Plan * ALTERNATE CODE * Decision-making: Per [place] statutes, in the absence of written advanced directives healthcare proxy decision-making falls to the patient's * Discussed the process of cardio pulmonary resuscitation with the patient's status post cardiac arrest 2. Patient's states she feels her has been put through enough. Patient is currently intubated. She requests the patient's CODE STATUS be changed to ALTERNATE CODE.In the event the patient's heart stops again, she requests that he be allowed to pass peacefully and naturally without further aggressive interventions. * Discussed patient with bedside nurse (Gila), HD nurse and Dr. Cantu * Goals remain aggressive up to the point of cardiopulmonary resuscitation; will readdress goals when patient's daughter arrives early next week. * Symptom management-pain: Patient is off sedation, showing no nonverbal signs or symptoms of pain on exam. History of moderate to severe arthritic pain that significantly reduces patient's activity level. Possible contributing factors include respiratory distress, infections, intubation, immobility, bedbound status, invasiveness lines and recent chest compressions secondary to CPR. Acetaminophen and morphine are available PRN; no PRN requirements over the past 24 hours Palliative care will will monitor PRN requirements and make recommendations as indicated. * Symptom management-debility: Patient has a history of declining performance status and marginal nutritional status but was making some improvement until this acute episode. Patient uses a power scooter/wheelchair to get around. It is unclear if the patient will tolerate rehabilitation at this time. * Symptom management-encephalopathy: Encephalopathic status post cardiopulmonary arrest. Patient is more alert than yesterday. Per nursing report, patient reporting pain stating he has had enough and does not want to continue hemodialysis. * Palliative care will continue to follow this patient throughout his hospitalization to establish trust, assist with symptom management and clarification of medical treatment goals. . Attestation To help prompt me to consider important information that might be impacting today's encounter and assessment, information from prior notes written by myself or my colleagues may have been "brought forward" into today's note. My signature on this note, however, is an attestation that I personally performed the exam, history, and/or decision-making noted today, and, unless otherwise indicated, the interactions with patient, family, and staff as well as the review of records all occurred today. I also attest that the listed assessment and stated plan reflect my best clinical judgment today based on the combination of historical information, prior notes, and today's exam/ interactions. When time spent is documented, it refers only to time spent today by the signer, or if indicated, combined time spent today by collaborating physician/nurse practitioner. . Cristy Gaxiola Apr 20, 2017 17:24
--- NOTE | 2017-04-20 17:31 | RADRPT ---
EXAM DATE/TIME: 04/20/2017 16:57 [facility] COMPARISON: CHEST SINGLE AP, April 20, 2017, 4:42. INDICATIONS : Respiratory distress MEDICAL HISTORY : Hypertension. Stage 3 renal disease SURGICAL HISTORY : None. ENCOUNTER: Subsequent ACUITY: 2 weeks PAIN SCORE: Non-responsive. LOCATION: Bilateral chest FINDINGS: New consolidative changes left lower lobe of eyeball suggesting mucous plugging. Right lung clear. Heart is enlarged. The vascularity is normal. CONCLUSION: Probable mucous plug on the left. Anthony Claros MD FACR on April 20, 2017 at 17:28 Board Certified Radiologist. This report was verified electronically.
--- NOTE | 2017-04-20 17:45 | HHI.NPPN ---
Subjective History of Present Illness 76-year-old male with a history of end-stage renal disease on maintenance hemodialysis generally Tuesday and Tuesday however he was dialyzed last Tuesday secondary to the holiday. Subsequently developed epistaxis and presented to the emergency room with hypotension and his INR was said to be greater than 13. Patient was on Coumadin apparently for atrial fibrillation. According to the records patient subsequently required cardiopulmonary resuscitation and was intubated. Interval History Patient apparently developed another mucous plug. Critical care by bedside. Patient still intubated. Review of Systems General General Remarks Unable to obtain Objective Data Data 04/20/17 04/21/17 19:00 07:00 Output Total 2000 ml Balance -2000 ml Hemodialysis 2000 ml Vital Signs Date Time Temp Pulse Resp B/P (MAP) Pulse Ox O2 Delivery O2 Flow Rate FiO2 04/20/17 16:00 98.4 85 16 158/77 (104) 94 04/20/17 16:00 60 04/20/17 16:00 85 04/20/17 14:00 78 04/20/17 13:42 15 04/20/17 12:48 95 40 04/20/17 12:00 73 04/20/17 12:00 98.5 73 15 135/63 (87) 96 04/20/17 12:00 50 04/20/17 11:00 45 04/20/17 10:00 74 04/20/17 08:35 96 60 04/20/17 08:00 60 04/20/17 08:00 75 04/20/17 08:00 98.5 70 16 137/65 (89) 94 04/20/17 07:00 95 Mechanical Ventilator 65 04/20/17 06:00 68 04/20/17 04:00 65 04/20/17 04:00 76 04/20/17 04:00 98.0 76 15 147/67 (93) 96 04/20/17 03:46 96 65 04/20/17 02:00 72 04/20/17 00:38 96 65 04/20/17 00:00 65 04/20/17 00:00 98.2 75 15 139/65 (89) 96 04/20/17 00:00 75 04/19/17 22:00 82 04/19/17 20:45 35 04/19/17 20:34 95 35 04/19/17 20:00 35 04/19/17 20:00 98.4 68 8 151/70 (97) 94 04/19/17 20:00 68 04/19/17 19:00 95 Mechanical Ventilator 35 04/19/17 18:00 70 -: 04/20/17 0545 04/20/17 1400 Physical Exam General Appearance: No Acute Distress, Comfortable, Malnourished Pulmonary Resp Exam: Clear Bilaterally, Breath Sounds Equal Cardiology CV Exam: Regular, Normal Sinus Rhythm Gastrointestinal/Abdomen GI Exam: Soft, Non-Tender Integumentary Skin Exam: Clear, Warm Extremeties Extremities Exam: No Edema Neurologic Neuro Exam: Sedated Assessment/Plan Problem List: (1) ESRD (end stage renal disease) on dialysis ICD Codes: N18.6 - End stage renal disease; Z99.2 - Dependence on renal dialysis Status: Chronic Plan: Continue hemodialysis Tuesday and Tuesday. Patient as a history of debilitation and marginal nutritional status but was making some improvement until this acute episode. Uncertain in regard to patient's ability to be rehabilitated to a significant degree at this point in time. Palliative care on board and his daughter will be visiting over the weekend. Medications should be adjusted for the patient's ESRD. Avoid gadolinium (2) Hypercalcemia associated with chronic dialysis ICD Codes: E83.52 - Hypercalcemia Status: Chronic Plan: Patient has a history of previous hypercalcemia which was evaluated for and no specific etiology determined. Resolved at the present Mild hypercalcemia has resolved. Continue on 2.0 calcium hemodialysis bath ordered Pending Calcitriol level (3) Anemia of renal disease ICD Codes: D63.1 - Anemia in chronic kidney disease Status: Chronic Plan: Continue Epogen for anemia renal disease. (4) Epistaxis ICD Codes: R04.0 - Epistaxis Status: Resolved (5) Coumadin toxicity ICD Codes: T45.511A - Poisoning by anticoagulants, accidental (unintentional), initial encounter Status: Resolved Plan: Defer anticoagulation management to primary care physician. (6) HTN (hypertension) ICD Codes: I10 - Essential (primary) hypertension Status: Chronic Danita Maria MD Apr 20, 2017 17:45
--- NOTE | 2017-04-20 17:57 | PD.PROCEDR ---
Procedure Note Procedure Procedure DATE: 04/17/2017 Fiberoptic bronchoscopy, diagnostic and therapeutic: INDICATION: Acute hypoxic respiratory failure - mucus plugging right CONSENT Informed consent for procedure was attempted to be obtained from Aylin power of patent prosecution attorney however she was unavailable. Procedure note The patient was placed in supine position. Patient was on PRVC saturations 100 %. Patient received 50 mcg fentanyl, 5 mg of midazolam and 50 mill grams rocuronium. I entered the 8.0 ET tube with fiberoptic bronchoscopy. The reilly was sharp. Within the left main bronchus was a large mucous plug. This was lavaged with copious amounts of sterile saline. Exam is a linear/left left upper lobe to include a second subsegment saline lavaged with copious amounts of saline. Mucosa was easily friable. No masses were identified. Scope was withdrawn and I evaluated the right upper, middle and lower lobes. This is a lavaged with sterile saline with tiny right mucous plugs. No erythema or bleeding was noted. Again mucosa was very friable. Scope was withdrawn. COMPLICATIONS: No apparent complications. STAT chest x-ray pending at time of dictation Avinash Cantu MD Apr 17, 2017 10:57 Avinash Cantu MD Apr 20, 2017 17:57
[2017-04-20] MEDS ORDERED: ROCURONIUM INJ 100 MG/10 ML VIAL IV ONE (18:00)
[2017-04-20] MEDS ORDERED: MIDAZOLAM HCL 2 MG/2 ML VIAL IV PUSH ONE ×2 (18:00→20:00)
--- NOTE | 2017-04-20 19:10 | RADRPT ---
EXAM DATE/TIME: 04/20/2017 18:07 [facility] COMPARISON: CHEST SINGLE AP, April 20, 2017, 16:57. INDICATIONS : Post bronch. MEDICAL HISTORY : Hypertension. Stage 3 renal disease. SURGICAL HISTORY : None. ENCOUNTER: Subsequent ACUITY: 2 weeks PAIN SCORE: Non-responsive. LOCATION: Bilateral chest FINDINGS: A single view of the chest demonstrates a significant right-sided pneumothorax. The mediastinum is sl ightly shifted suggesting a tension pneumothorax. Left lung is clear. ET tube and NG tube are both in good position. Left IJ central line in good position.. Osseous structures are intact. CONCLUSION: Large right-sided tension pneumothorax with shift of mediastinum from right to left although the medi astinum has always been slightly shifted. Findings were relayed to the floor. Nurse Amezcua was informed. Harry Soto MD on April 20, 2017 at 19:00 Board Certified Radiologist. This report was verified electronically.
--- NOTE | 2017-04-20 19:46 | PD.PROCEDR ---
Procedure Note Procedure Date of procedure: 04/20/2017 Procedure: Right 10 [place] Islander pigtail chest tube placement Indication: Right pneumothorax Details of procedure: Informed consent was not obtained from the Aylin due to emergent condition. The patient was laid supine. The lateral chest wall was cleaned with ChloraPrep twice. Regional sterile drapes were applied. 1% lidocaine with epinephrine was used for local anesthesia and injected into the subcutaneous and deep muscle tissues. Insertion needle was placed midaxillary line. Above rib inserted with pressure there pressure after removal of syringe. The guidewire was placed through insertion needle to approximately 35 cm. A small kerline was placed about the guidewire.. A size 10French chest tube was inserted into the pleural cavity and directed toward the posterior anterior region. 2-0 silk was used to close the wound and to secure the chest tube. A sterile Vaseline gauze dressing was applied. The chest tube was connected to a Pleur- evac drainage system. There was an air leak. There was 0 output from the chest tube. Estimated blood loss: 0cc Complications: None. Stat chest x-ray pending at time of dictation. Avinash Cantu MD Apr 20, 2017 19:46
--- NOTE | 2017-04-20 20:37 | RADRPT ---
EXAM DATE/TIME: 04/20/2017 20:08 [facility] COMPARISON: No previous studies available for comparison. INDICATIONS : Evaluate post chest tube. Pneumothorax. MEDICAL HISTORY : Hypertension. Stage 3 renal disease. SURGICAL HISTORY : None. ENCOUNTER: Subsequent ACUITY: 1 week PAIN SCORE: Non-responsive. LOCATION: Right chest FINDINGS: A single view of the chest demonstrates the interval placement of a right-sided pigtail chest tube in excellent position. The pneumothorax in previously has completely resorbed. There is a remaining air and the chest wall but the lung is reinflated. There is no longer any shift. The endotracheal tube, nasogastric tube and left IJ central line are all in excellent position.. Osseous structures are int act. CONCLUSION: Successful placement of pigtail chest tube with complete resolution of the right-sided tension pneumo thorax. Harry Soto MD on April 20, 2017 at 20:33 Board Certified Radiologist. This report was verified electronically.
[2017-04-20] MEDS: ATORVASTATIN 10 MG TAB PO SCH (20:55)
[2017-04-20] MEDS: guaiFENesin SOLUTION 200 MG/10 ML CUP PO SCH (20:55)
[2017-04-21] VITALS (18 sets, daily range): BP systolic 127–161; BP diastolic 58–74; PULSE 69–92; RESP 16; TEMP 98.1–98.8; O2SAT 94–97
[2017-04-21] MEDS: MORPHINE SULFATE 2 MG/ML INJ IV PUSH PRN ×2 (00:59→16:26)
[2017-04-21] MEDS: RESP: SODIUM CHLORIDE 3% 4 ML NEB NEB SCH ×4 (03:28→20:32)
[2017-04-21] MEDS: RESP: ALBUTEROL 2.5 MG/IPRATROPIUM 0.5 MG NEB (SCH) NEB ×2 (03:28→09:36)
[2017-04-21] MEDS: CHLORHEXIDINE GLUCONATE 2 % 1 PACK (2 CLOTHS) TOP SCH (04:00)
[2017-04-21 05:11] LABS: AUTOMATED NEUTROPHIL # 19.2 TH/MM3 (1.8-7.7); BASOPHIL # 0.1 TH/MM3 (0-0.2); BASOPHIL % 0.7 % (0.0-2.0); EOSINOPHIL # 0.1 TH/MM3 (0-0.4); EOSINOPHIL % 0.6 % (0.0-4.0); HEMATOCRIT 24.1 % (39.0-51.0); HEMOGLOBIN 7.8 GM/DL (13.0-17.0); LYMPH % 5.7 % (9.0-44.0); LYMPHOCYTE # 1.2 TH/MM3 (1.0-4.8); MEAN CELL VOLUME 100.5 FL (80.0-100.0); MEAN CORPUSCULAR HEMOGLOBIN 32.6 PG (27.0-34.0); MEAN CORPUSCULAR HGB CONC 32.4 % (32.0-36.0); MEAN PLATELET VOLUME 8.4 FL (7.0-11.0); MONO % 3.6 % (0.0-8.0); MONOCYTE # 0.8 TH/MM3 (0-0.9); NEUT % 89.4 % (16.0-70.0); PLATELET COUNT 351 TH/MM3 (150-450); RED CELL DISTRIBUTION WIDTH 16.3 % (11.6-17.2); WHITE BLOOD COUNT 21.5 TH/MM3 (4.0-11.0)
[2017-04-21 05:34] LABS: ALBUMIN 1.8 GM/DL (3.4-5.0); BICARBONATE 29.1 MEQ/L (21.0-32.0); CALCIUM 9.2 MG/DL (8.5-10.1); CREATININE 2.59 MG/DL (0.60-1.30); PHOSPHORUS 2.3 MG/DL (2.5-4.9)
[2017-04-21] MEDS: ARTIFICIAL TEARS OPTH SOLN 15 ML BTL EACH EYE SCH ×3 (06:00→21:19)
[2017-04-21] MEDS: INSULIN NovoLIN REGULAR SUPPLEMENTAL SCALE SQ SCH ×4 (06:00→17:43)
[2017-04-21] MEDS: guaiFENesin SOLUTION 200 MG/10 ML CUP PO SCH ×3 (06:00→21:18)
[2017-04-21 06:56] LABS: BANDS 1 % (0-6); CORRECTED NUCLEATED RBC 1 /100 WBC (0-0); HOWELL-JOLLY BODIES PRESENT (NONE SEEN); KERATOCYTES OCC (NORMAL); LYMPHOCYTES 5 % (9-44); NUCLEATED RED BLOOD CELL 1 (0-0); POLYS (SEG NEUTROPHILS) 92 % (16-70)
[2017-04-21 06:57] LABS: ACANTHOCYTES OCC (NORMAL)
[2017-04-21] MEDS ORDERED: POTASSIUM CHLORIDE 20 MEQ PWD PACKET PO ONE (08:00)
[2017-04-21] MEDS: TAMSULOSIN HCL 0.4 MG CAP PO SCH (09:00)
[2017-04-21] MEDS: hydrALAZINE HCL 25 MG TAB PO SCH ×3 (09:00→17:41)
[2017-04-21] MEDS: FINASTERIDE 5 MG TAB PO SCH (09:00)
[2017-04-21] MEDS: SENNOSIDES SYRUP 8.8 MG/5 ML CUP PO SCH ×2 (09:00→21:00)
[2017-04-21] MEDS: PIPERACIL-TAZO 2.25 GM PREMIX 50 ML IV SCH ×2 (09:00→21:18)
[2017-04-21] MEDS: SODIUM CHLORIDE 0.9% FLUSH 10 ML FLUSH IV FLUSH SCH ×3 (09:00→21:19)
[2017-04-21] MEDS: SEVELAMER CARBONATE 800 MG TAB PO SCH ×3 (09:00→16:17)
[2017-04-21] MEDS: DOCUSATE SODIUM 100 MG/10 ML UDC PO SCH ×2 (09:00→21:00)
[2017-04-21] MEDS: PANTOPRAZOLE SODIUM 40 MG VIAL IV PUSH SCH (09:00)
[2017-04-21] MEDS: CHLORHEXIDINE 0.12% (ORAL KIT) 15 ML CUP MT SCH ×2 (09:03→20:00)
[2017-04-21] MEDS: INSULIN DETEMIR 100 UNITS/ML VIAL SQ SCH ×2 (09:04→21:00)
--- NOTE | 2017-04-21 11:09 | HHI.HCPN ---
Reason for visit a. To assist with evaluation and management of symptoms including: Debility , encephalopathy, pain b. To assist medical decision maker(s) with: better understanding of current medical conditions; weighing benefits/burdens of medical treatment options; making medical treatment decisions. Subjective/Interval History Mr. Avila is a 76-year-old male with ESRD admitted with epistaxis, coagulopathy, PNA and bacteremia status post CPR 2. Follow-up visit for symptom management and clarification of medical treatment goals. Patient remains intubated on mechanical ventilator, tolerating CPAP since 9:45 AM. Chest x-ray yesterday morning showed right lower lobe atelectasis versus pneumonia, no significant change in comparison to previous imaging. Patient had mucus plugging with subsequent bronchoscopy; pneumothorax status post bronchoscopy the with right-sided pigtail chest tube basement. He denies pain or shortness of breath when asked. He received 2 doses of PRN morphine in the past 24 hours for generalized, aching pain. Patient is off sedation. He is awake, eyes open. Answers yes no questions by nodding and shaking head, attempting to communicate by mouthing words - asking to be aloud go home. He follows simple commands consistently; ongoing weakness and left upper extremity. WBC: 21.5, hemoglobin 7.8, hematocrit 24.1, platelets 351, neutrophils 89.4% Sodium: 142, potassium 3.3, chloride 104, carbon dioxide 29.1, glucose 98, calcium 9.2, phosphorus 2.3 BUN: 31, creatinine 2.59, GFR 24 Albumin: 1.8 Afebrile. Follow-up blood cultures and bronchial washings from 04/14/2017 may negative today. Patient remains on Zosyn and Zithromax; will continue vancomycin with dialysis until 04/25/2017. Infectious disease following. . Family/friend interactions Spoke with patient's . An update was provided on the patient's clinical condition. Requested information on options if the patient was unable to wean off the ventilator, therefore tracheostomy/PEG tube placement vs. transitioning fto comfort were briefly discussed. She does not plan to make any changes and medical treatment goals until after the patient's daughter has arrived on Tuesday04/25/2017; tentative plans to meet with palliative care at that time. . Advance Directives Living Will: Never completed Health Care Surrogate: Never completed Durable Power of Carrier Driver: Never completed Advance Directive Specifics Health Care Surrogate(s): Per [place] statutes, in the absence of written advanced directives healthcare proxy decision-making falls to the patient's . . Documented care wishes: No known documented care wishes have been completed. . Objective Vital Signs Date Time Temp Pulse Resp B/P (MAP) Pulse Ox O2 Delivery O2 Flow Rate FiO2 04/21/17 09:45 95 40 04/21/17 09:45 40 04/21/17 09:36 95 40 04/21/17 06:00 78 04/21/17 04:00 98.3 78 16 143/64 (90) 94 04/21/17 04:00 65 04/21/17 04:00 78 04/21/17 03:30 95 40 04/21/17 02:00 80 04/21/17 01:04 16 04/21/17 00:00 98.5 92 16 161/74 (103) 97 04/21/17 00:00 80 04/21/17 00:00 65 04/20/17 23:35 97 40 04/20/17 22:00 86 04/20/17 20:08 98 50 04/20/17 20:00 65 04/20/17 20:00 97 04/20/17 20:00 98.5 92 16 161/74 (103) 97 04/20/17 19:00 100 Mechanical Ventilator 65 04/20/17 18:00 93 04/20/17 17:48 96 80 04/20/17 17:10 97 100 04/20/17 16:00 98.4 85 16 158/77 (104) 94 04/20/17 16:00 60 04/20/17 16:00 85 04/20/17 14:00 78 04/20/17 12:48 95 40 04/20/17 12:00 73 04/20/17 12:00 98.5 73 15 135/63 (87) 96 04/20/17 12:00 50 04/20/17 11:00 45 Intake & Output 04/21/17 04/21/17 07:00 19:00 Intake Total 452 ml Output Total 0 ml Balance 452 ml Tube Feeding 332 ml Other 120 ml Output Urine Total 0 ml Stool Total 0 ml . Physical Exam CONSTITUTIONAL/GENERAL: This is a frail appearing, elderly male patient currently intubated and tolerating CPAP since this morning TUBES/LINES/DRAINS: CVL, ETT, OGT, PIV x 2, AV fistula, soft restraints SKIN: Ecchymoses on upper extremities. No wounds seen anteriorly. Skin temperature appropriate. Not diaphoretic. HEAD: Atraumatic. Normocephalic. EYES: Pupils equal and round and reactive. No scleral icterus. No injection or drainage. Fundi not examined. ENT: Hearing grossly normal. No epistaxis. Mucous membranes dry NECK: Trachea midline. CARDIOVASCULAR: Regular rate and rhythm Peripheral pulses symmetric. RESPIRATORY/CHEST: Intubated tolerating CPAP trials Clear to auscultation GASTROINTESTINAL: Abdomen soft, non-tender, nondistended. No guarding. Bowel sounds present. Tolerating artificial nutrition, [place] at 45 miles per hour GENITOURINARY: Without palpable bladder distension. MUSCULOSKELETAL: Extremities without clubbing or cyanosis. 2+ edema in feet and hands bilaterally. LYMPHATICS: No palpable cervical or supraclavicular adenopathy. NEUROLOGICAL: Awake with eyes open. Alert. Answers yes no questions by nodding or shaking head. Attempting to make needs known by mouthing words. Follows simple commands consistently PSYCHIATRIC: Unable to assess secondary to patient's clinical condition . Diagnostic Tests Laboratory Laboratory Tests Test 04/19/17 05:50 04/19/17 22:25 04/20/17 05:45 04/20/17 14:00 White Blood Count 13.6 TH/MM3 (4.0-11.0) 17.3 TH/MM3 (4.0-11.0) Red Blood Count 2.53 MIL/MM3 (4.50-5.90) 2.58 MIL/MM3 (4.50-5.90) Hemoglobin 8.4 GM/DL (13.0-17.0) 8.2 GM/DL (13.0-17.0) Hematocrit 25.0 % (39.0-51.0) 25.9 % (39.0-51.0) Mean Corpuscular Volume 98.7 FL (80.0-100.0) 100.3 FL (80.0-100.0) Mean Corpuscular Hemoglobin 33.1 PG (27.0-34.0) 31.9 PG (27.0-34.0) Mean Corpuscular Hemoglobin Concent 33.6 % (32.0-36.0) 31.8 % (32.0-36.0) Red Cell Distribution Width 15.3 % (11.6-17.2) 15.5 % (11.6-17.2) Platelet Count 419 TH/MM3 (150-450) 379 TH/MM3 (150-450) Mean Platelet Volume 7.9 FL (7.0-11.0) 8.2 FL (7.0-11.0) Neutrophils (%) (Auto) 87.7 % (16.0-70.0) Lymphocytes (%) (Auto) 6.3 % (9.0-44.0) Monocytes (%) (Auto) 5.4 % (0.0-8.0) Eosinophils (%) (Auto) 0.3 % (0.0-4.0) Basophils (%) (Auto) 0.3 % (0.0-2.0) Neutrophils # (Auto) 11.9 TH/MM3 (1.8-7.7) Lymphocytes # (Auto) 0.8 TH/MM3 (1.0-4.8) Monocytes # (Auto) 0.7 TH/MM3 (0-0.9) Eosinophils # (Auto) 0.0 TH/MM3 (0-0.4) Basophils # (Auto) 0.0 TH/MM3 (0-0.2) CBC Comment AUTO DIFF AUTO DIFF Differential Total Cells Counted 100 100 Neutrophils % (Manual) 86 % (16-70) 87 % (16-70) Band Neutrophils % 2 % (0-6) 3 % (0-6) Lymphocytes % 8 % (9-44) 6 % (9-44) Monocytes % 3 % (0-8) 3 % (0-8) Eosinophils % 1 % (0-4) Neutrophils # (Manual) 12.0 TH/MM3 (1.8-7.7) 15.7 TH/MM3 (1.8-7.7) Nucleated Red Blood Cells 13 /100 WBC (0-0) 5 /100 WBC (0-0) Differential Comment FINAL DIFF MANUAL FINAL DIFF MANUAL Platelet Estimate NORMAL (NORMAL) NORMAL (NORMAL) Platelet Morphology Comment ENLARGED (NORMAL) NORMAL (NORMAL) Polychromasia 2.0 % (0.0-1.9) Acanthocytes OCC (NORMAL) 1+ (NORMAL) Prothrombin Time 12.6 SEC (9.8-11.6) Prothromb Time International Ratio 1.2 RATIO Activated Partial Thromboplast Time 28.8 SEC (24.3-30.1) Fibrinogen 640 mg/dL (227-377) Blood Urea Nitrogen 36 MG/DL (7-18) 52 MG/DL (7-18) Creatinine 2.78 MG/DL (0.60-1.30) 3.79 MG/DL (0.60-1.30) Random Glucose 259 MG/DL (74-106) 209 MG/DL (74-106) 166 MG/DL (74-106) Albumin 1.9 GM/DL (3.4-5.0) 1.9 GM/DL (3.4-5.0) Calcium Level 9.5 MG/DL (8.5-10.1) 9.7 MG/DL (8.5-10.1) Phosphorus Level 2.7 MG/DL (2.5-4.9) 3.9 MG/DL (2.5-4.9) Sodium Level 141 MEQ/L (136-145) 139 MEQ/L (136-145) Potassium Level 3.4 MEQ/L (3.5-5.1) 3.7 MEQ/L (3.5-5.1) Chloride Level 101 MEQ/L (98-107) 103 MEQ/L (98-107) Carbon Dioxide Level 29.0 MEQ/L (21.0-32.0) 26.5 MEQ/L (21.0-32.0) Anion Gap 11 MEQ/L (5-15) 10 MEQ/L (5-15) Estimat Glomerular Filtration Rate 22 ML/MIN (>89) 16 ML/MIN (>89) Triglycerides Level 110 MG/DL (42-150) 104 MG/DL (42-150) Blood Gas Puncture Site LT BRACHIAL Blood Gas Patient Temperature 98.6 Blood Gas HCO3 28 mmol/L (22-26) Blood Gas Base Excess 4.3 mmol/L (-2-2) Blood Gas Oxygen Saturation 91 % (90-100) Arterial Blood pH 7.48 (7.380-7.420) Arterial Blood Partial Pressure CO2 38 mmHg (38-42) Arterial Blood Partial Pressure O2 66 mmHg (61-120) Arterial Blood Oxygen Content 11.0 Vol % (12.0-20.0) Arterial Blood Carboxyhemoglobin 1.5 % (0-4) Arterial Blood Methemoglobin 1.2 % (0-2) Blood Gas Hemoglobin 8.5 G/DL (12.0-16.0) Oxygen Delivery Device VENTILATOR Blood Gas Ventilator Setting SEE COMMENT Blood Gas Inspired Oxygen 65 % Myelocytes 1 % (0-0) Toxic Granulation 1+ (NORMAL) Basophilic Stippling FAINT (NORMAL) Keratocytes OCC (NORMAL) Cholesterol Level 71 MG/DL (120-200) LDL Cholesterol 14 MG/DL (0-99) HDL Cholesterol 36.6 MG/DL (40.0-60.0) Cholesterol/HDL Ratio 1.93 RATIO Lipase 887 U/L (73-393) Test 04/20/17 18:00 04/21/17 04:50 Bronchoalveolar Lavage WBC 1315 /MM3 Bronchoalveolar Lavage RBC 215 /MM3 Bronchoalveolar Lavage Neutrophils 92 % Bronchoalveolar Lavage Lymphocytes 4 % Lavage Fluid Total Volume 11.0 ML Lavage Fluid Total WBC Count 14.465 MILLION (4.700-7.100) White Blood Count 21.5 TH/MM3 (4.0-11.0) Red Blood Count 2.40 MIL/MM3 (4.50-5.90) Hemoglobin 7.8 GM/DL (13.0-17.0) Hematocrit 24.1 % (39.0-51.0) Mean Corpuscular Volume 100.5 FL (80.0-100.0) Mean Corpuscular Hemoglobin 32.6 PG (27.0-34.0) Mean Corpuscular Hemoglobin Concent 32.4 % (32.0-36.0) Red Cell Distribution Width 16.3 % (11.6-17.2) Platelet Count 351 TH/MM3 (150-450) Mean Platelet Volume 8.4 FL (7.0-11.0) Neutrophils (%) (Auto) 89.4 % (16.0-70.0) Lymphocytes (%) (Auto) 5.7 % (9.0-44.0) Monocytes (%) (Auto) 3.6 % (0.0-8.0) Eosinophils (%) (Auto) 0.6 % (0.0-4.0) Basophils (%) (Auto) 0.7 % (0.0-2.0) Neutrophils # (Auto) 19.2 TH/MM3 (1.8-7.7) Lymphocytes # (Auto) 1.2 TH/MM3 (1.0-4.8) Monocytes # (Auto) 0.8 TH/MM3 (0-0.9) Eosinophils # (Auto) 0.1 TH/MM3 (0-0.4) Basophils # (Auto) 0.1 TH/MM3 (0-0.2) CBC Comment AUTO DIFF Differential Total Cells Counted 100 Neutrophils % (Manual) 92 % (16-70) Band Neutrophils % 1 % (0-6) Lymphocytes % 5 % (9-44) Eosinophils % 2 % (0-4) Neutrophils # (Manual) 20.0 TH/MM3 (1.8-7.7) Nucleated Red Blood Cells 1 /100 WBC (0-0) Differential Comment FINAL DIFF MANUAL Platelet Estimate NORMAL (NORMAL) Platelet Morphology Comment NORMAL (NORMAL) [place] Bodies PRESENT (NONE SEEN) Acanthocytes OCC (NORMAL) Keratocytes OCC (NORMAL) Red Cell Morphology Comment (NORMAL) Blood Urea Nitrogen 31 MG/DL (7-18) Creatinine 2.59 MG/DL (0.60-1.30) Random Glucose 98 MG/DL (74-106) Albumin 1.8 GM/DL (3.4-5.0) Calcium Level 9.2 MG/DL (8.5-10.1) Phosphorus Level 2.3 MG/DL (2.5-4.9) Sodium Level 142 MEQ/L (136-145) Potassium Level 3.3 MEQ/L (3.5-5.1) Chloride Level 104 MEQ/L (98-107) Carbon Dioxide Level 29.1 MEQ/L (21.0-32.0) Anion Gap 9 MEQ/L (5-15) Estimat Glomerular Filtration Rate 24 ML/MIN (>89) Result Diagram: 04/21/17 0450 04/21/17 0450 Microbiology Microbiology Date/Time Source Procedure Growth Status 04/20/17 18:00 Bronchial Washings Left Lower Lobe Fungal Smear - Final NO FUNGAL ELEMENTS SEEN. Resulted 04/20/17 18:00 Bronchial Washings Left Lower Lobe Fungal Culture Pending Resulted 04/20/17 18:00 Bronchial Washings Left Lower Lobe Acid Fast Stain Pending Received 04/20/17 18:00 Bronchial Washings Left Lower Lobe Mycobacterial Culture Pending Received 04/20/17 18:00 Bronchial Washings Left Lower Lobe Gram Stain - Final Resulted 04/20/17 18:00 Bronchial Washings Left Lower Lobe Bronchial Culture Pending Resulted Procedures 04/17/2017: Left IJ CVL placement 04/17/2017: Orotracheal intubation 04/17/2017: Bronchoscopy 04/20/2017: Pigtail chest tube placement . Assessment and Plan Disease Oriented Problem List: (1) Hypovolemic shock (2) Coagulopathy (3) Respiratory failure (4) Epistaxis (5) ESRD (end stage renal disease) on dialysis Symptom Scale: (1) Debility 0-10 Scale: Unable to quantify (2) Pain 0-10 Scale: Unable to quantify (3) Encephalopathy 0-10 Scale: Unable to quantify Pertinent Non-Medical Issues Psychosocial: Patient and his are originally from [place]. This was a second marriage for both of them and they have now been for 40+ years. He has 4 children and 2 stepchildren; when they got just the children's ages range from 2 years to preteens. 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 Spiritual: None gnosticist; patient's refused floor cashier visits Legal: Her [place] statutes, in the absence of written advanced directives healthcare proxy decision-making falls to the patient's Ethical issues impacting care: No known ethical issues impacting care. . . Important Contacts Aylin Roberto, : [phone] . Prognosis Patient is a 76-year-old male with a complex medical history including ESRD on hemodialysis. Admitted with epistaxis, coagulopathy, pneumonia and bacteremia status post cardiopulmonary arrest 2. Patient is at high risk for ongoing complications and Escherichia coli secondary to his advanced age and deconditioned status. . Code Status: No Code Plan * NO CODE * Decision-making: Per [place] statutes, in the absence of written advanced directives healthcare proxy decision-making falls to the patient's * Discussed the process of cardio pulmonary resuscitation with the patient's status post cardiac arrest 2. Patient's states she feels her has been put through enough. Patient is currently intubated but if he is extubated, either accidentally or medically, she would not want him to be reintubated. * Discussed patient with bedside nurse (Fabiola) * GOALS REMAIN AGGRESSIVE * Symptom management-pain: Patient lies pain when asked. History of moderate to severe arthritic pain that significantly reduces patient's activity level. Possible contributing factors include respiratory distress, infections, intubation, immobility, bedbound status, invasiveness lines and recent chest compressions secondary to CPR. Acetaminophen and morphine are available PRN; he has received 2 PRN doses of morphine over the past 24 hours for generalized, aching pain Palliative care will will monitor PRN requirements and make recommendations as indicated. * Symptom management-debility: Patient has a history of declining performance status and marginal nutritional status but was making some improvement until this acute episode. Patient uses a power scooter/wheelchair to get around. It is unclear if the patient will tolerate rehabilitation at this time. * Symptom management-encephalopathy: Patient is off sedation. He is awake, eyes open. Answers yes no questions by nodding and shaking head, attempting to communicate by mouthing words - asking to be aloud go home. He follows simple commands consistently; ongoing weakness and left upper extremity. * Spoke with patient's . An update was provided on the patient's clinical condition. Requested information on options if the patient was unable to wean off the ventilator, therefore tracheostomy/PEG tube placement vs. transitioning fto comfort were briefly discussed. She does not plan to make any changes and medical treatment goals until after the patient's daughter has arrived on Tuesday04/25/2017; tentative plans to meet with palliative care at that time. * Palliative care will continue to follow this patient throughout his hospitalization to establish trust, assist with symptom management and clarification of medical treatment goals. . Attestation To help prompt me to consider important information that might be impacting today's encounter and assessment, information from prior notes written by myself or my colleagues may have been "brought forward" into today's note. My signature on this note, however, is an attestation that I personally performed the exam, history, and/or decision-making noted today, and, unless otherwise indicated, the interactions with patient, family, and staff as well as the review of records all occurred today. I also attest that the listed assessment and stated plan reflect my best clinical judgment today based on the combination of historical information, prior notes, and today's exam/ interactions. When time spent is documented, it refers only to time spent today by the signer, or if indicated, combined time spent today by collaborating physician/nurse practitioner. . Cristy Gaxiola Apr 21, 2017 11:09
--- NOTE | 2017-04-21 13:27 | HHI.CCPN ---
Subjective Remarks/Hospital Course 76 y/o man developed a persistent nose bleed this morning after dialysis. In ED his INR was > 13 and he received Kcentra for warfarin reversal (permanent a-fib) . Due to airway problems from blood and hypovolemia he sustained a brief cardiopulmonary arrest in the [facility] requiring intubation and ventilation. He was aggressively resuscitated by the staff at [facility] and transferred to [facility] for ongoing resuscitation. He arrived to the [facility] with BP 52/25 and pulse rate 44. Two units of type specific blood were administered and levophed initiated at 20 mics/min. A central line was placed revealing CVP < 5 while on positive pressure ventilation. Resuscitation is continuing. 04/11/17: Currently epistaxis is controlled. Patient is off Levophed, hypertensive. PRN hydralazine added. Patient continues to have coffee-ground output from the NG tube large amount. INR is 2.8 have added FFP 2 units and vitamin K stat. Repeat CBC and INR stat 04/12/17: Remains intubated but wakes up easily follows commands. Left upper extremity weaker. INR was 3.3 yesterday received 2 units FFP and vitamin K repeat INR pending. No further epistaxis and NGT output minimal 04/13/17: Extubated yesterday tolerating well. Blood cultures 4 out of 4 bottles positive for coag negative staph. ID consulted 2-D echo ordered. No further epistaxis reported. refused EGD 04/14/17: Protecting airway. Overnight human resources temp was called for stridor- appear to be upper airway conducted sounds. Intermittent confusion, but on my exam AOx3 04/15/17: More lethargic today, but wakes up and follows commands. Received morphine 2 mg at 8 AM. Getting hemodialysis today. Will reduce Morphine from 2 to 1 mg. Also WBC count is elevated, to 20.7 04/16/17: Patient remains lethargic encephalopathy, but wakes up remains oriented to person and place. WBC count slightly further elevated to 21.6. Currently on vancomycin and Zosyn. Azithromycin added by infectious diseases have changed to IV. Repeat swallow eval 04/17: Patient went to acute respiratory arrest likely secondary to hypoxia etiology likely aspiration. Please see CPR note. Copious amounts of brownish secretions for ET tube and central line placed emergently. Attempts to contact Aylin Avila [phone] unsuccessful 04/18: Afebrile. FiO2 down to 40%. Continues with some bloody secretions. ET tube. Tolerating tube feeds. Positive BM. requesting palliative care consultation. 04/19: Tolerated PSV trial yesterday. -3500 cc with hemodialysis. Afebrile. One bowel movement. CT abdomen/pelvis revealed large stool impaction rectum. 04/20: Currently afebrile. Hemodialysis scheduled for today. We will attempt PSV trial afterwards. Positive BM. FiO2 60% overnight currently at 40%. Subjective 04/21: Yesterday, mucus plugging left-sided. Bronchoscopy. Pneumothorax right sided post bronchoscopy. Chest tube placed. Currently on 40% FiO2. Looks much improved. Complaining of constipation. Objective Vital Signs Date Time Temp Pulse Resp B/P (MAP) Pulse Ox O2 Delivery O2 Flow Rate FiO2 04/21/17 12:00 69 04/21/17 12:00 40 04/21/17 12:00 98.8 16 145/63 (90) 94 04/21/17 07:00 Mechanical Ventilator 04/17/17 08:16 15.00 Intake and Output 04/21/17 04/21/17 04/22/17 08:00 16:00 00:00 Intake Total 452 ml 80 ml Output Total 0 ml 0 ml Balance 452 ml 80 ml Result Diagram: 04/21/17 0450 04/21/17 0450 Other Results Microbiology Date/Time Source Procedure Growth Status 04/14/17 09:38 Blood Peripheral Aerobic Blood Culture - Final NO GROWTH IN 5 DAYS Complete 04/14/17 09:38 Blood Peripheral Anaerobic Blood Culture - Final NO GROWTH IN 5 DAYS Complete 04/20/17 18:00 Bronchial Washings Left Lower Lobe Fungal Smear - Final NO FUNGAL ELEMENTS SEEN. Resulted 04/20/17 18:00 Bronchial Washings Left Lower Lobe Fungal Culture Pending Resulted 04/12/17 05:58 Urine Catheterized Urine Urine Culture - Final NO GROWTH IN 48 HOURS. Complete Imaging Last Impressions Chest X-Ray 04/20/172004 Signed Impressions: Service Date/Time: Thursday, April 20, 2017 20:08 - CONCLUSION: Successful placement of pigtail chest tube with complete resolution of the right-sided tension pneumothorax. Harry Soto MD Lower Extremity Ultrasound 04/18/17 0600 Signed Impressions: Service Date/Time: Tuesday, April 18, 2017 08:08 - CONCLUSION: 1. No sonographic evidence for lower extremity DVT. Cristobal Simpson MD Abdomen/Pelvis CT 04/18/17 0000 Signed Impressions: Service Date/Time: Tuesday, April 18, 2017 13:08 - CONCLUSION: Probable impaction with large bolus of stool in the rectum Scattered stool throughout the remainder of the colon Nasogastric tube across the GE junction There is no intra-abdominal abscess. Anthony Claros MD FACR Brain MRI 04/17/17 0000 Signed Impressions: Service Date/Time: Monday, April 17, 2017 16:21 - CONCLUSION: 1. Possible normal pressure hydrocephalus. Correlation with clinical findings is necessary. 2. No evidence of acute intracranial pathology. No masses are identified. Michael Bhatt MD Upper Extremity Ultrasound 04/14/17 0000 Signed Impressions: Service Date/Time: April 10:28 - CONCLUSION: Thrombus is identified within distal cephalic vein. Scottie Donovan MD Head CT 04/12/17 0000 Signed Impressions: Service Date/Time: Wednesday, April 12, 2017 16:08 - CONCLUSION: Chronic changes without hemorrhage mass effect. Scottie Donovan MD Objective Remarks Gen: 76-year-old male, critically ill currently resting in bed orotracheally intubated ENT: No epistaxis. Oropharynx with dried secretions. No oropharyngeal edema. Neck: Supple, no JVD. Left IJ is clean dry and intact Lungs: Chest bilaterally. Coarse rhonchi. No wheezing. Right pigtail catheter intact Heart: Irreg Irreg, 3/6 THIERRY, LSB. Neck veins not distended. Abdomen: Nondistended, quiet. No guarding. Multiple well-healed surgical scars Extremities: Cool and pale. Neuro: Radial nerves II through XII grossly intact. Moves all 4 extremity spontaneously/withdraws to noxious stimuli. Date of Insertion: Apr 17, 2017 Line: Central Venous Catheter Location: Internal, Jugular A/P Assessment and Plan Neuro/Psych: Acute toxic metabolic encephalopathy secondary to sepsis Bilateral cataracts [place] Currently off all sedation. Goal of RASS -0 Will hold gabapentin 100 mg 3 times a day/home medication for neuropathy. Check gabapentin level Metabolic encephalopathy most likely secondary to sepsis, possibly medication induced CT head on admission revealed no acute intracranial findings. Chronic changes Weakness of left upper extremity most likely related to arthritis and rotator cuff tendinitis- MRI brain 04/17 revealed possible normal pressure hydrocephalus. Respiratory Acute hypoxic respiratory failure likely secondary to aspiration Recurrent mucus plugging Right pneumothorax PRVC 15/550/1./ Ventilator bundle Albuterol/ipratropium aerosols every 6 hours with albuterol aerosols every 2 hours. Dyspnea Hypertonic saline aerosols every 6 hours to thin secretions Guaifenesin 400 mg every 8 hours mucolytic Spontaneous breathing trials when clinically indicated Follow-up chest x-ray revealed likely mucus plugging right main bronchus below the right upper lobe. Bronchoscopy performed revealed externally frontal mucosa. Thick brown/bloody Mucous plugging right bronchus distal to right upper lobe. - Extubated 04/12 protecting airway - reintubated 04/17 Right pigtail Chest tube -40 cm H2O CV PEA secondary to respiratory arrest secondary to aspiration resolved Atrial fibrillation Hypotension Dyslipidemia Currently off all vasopressors 2-D echocardiogram revealed EF 60-65%. Right atrium mildly dilated. Moderate MR/TR. PAP 50-60 mmHg Troponin peaked at 0.39. Currently 0.36 Remains in atrial fibrillation/flutter rates between 40 and 80 Currently on atorvastatin 10 mg daily/40 mg daily at home for dyslipidemia Discontinue furosemide 20 mg twice a day. No urine output 6 days Currently hydralazine 75 mg every 8 hours. GI Gastroesophageal reflux disease History of splenectomy Hypoalbuminemia -Initiate trickle feeds with Nepro @ 45 cc an hour per nutrition's recommendations -Pantoprazole 40 mg IV once a day -Docusate sodium twice a day/senna twice daily for bowel regimen. BPH End-stage renal disease - hemodialysis Tuesday/Tuesday/Tuesday - Monitor UO. ESRD on HD, getting hemodialysis today - Renal - Dr. Maria Continue tamsulosin 0.4 mg daily and finasteride 5 mill grams daily. Unable to crush down NG tube currently No He. Bladder scan no urine Heme Epistaxis-resolved - Dr. Stewart followed Warfarin coagulopathy/toxicity - resolved Warfarin coagulopathy resolved post- Kcentra and DDAVP and 2U FFP and 10 mg vitamin K 04/11 Left cephalic vein superficial thrombosis Leukocytosis Normocytic anemia - admission with acute blood loss anemia Monitor CBC daily. Follow trends Currently with superficial thrombosis/no DVT prophylaxis or resumption of warfarin due to high risk of bleeding Follow-up on coags were elevated at 2.6 his Hernandez received vitamin K 10 mg IV and FFP 2 units. Recheck in a.m. ID: Staph epi bacteremia - 4 out of 4 bottles staph epi bacteremia-source probably dialysis access. Repeat blood culture 04/13 negative - 2-D echo- no vegetation. ID consult appreciated - Continue IV vancomycin, continue azithromycin stop date 04/20 and piperacillin/ tazobactam for pulmonary coverage - Repeat sputum culture FEN: Hypopotassemia Check PTH - elevated at 325 and calcitriol levels pending. Vitamin D levels 25 normal. 05/05 pending. Sevelamer 800 mg 3 times a day for hyperphosphatemia - switch Fosrenol for phosphate binder when medically indicated Replace electrolytes as clinically indicated Current normal saline at 84 cc an hour. Discontinue today Lines - Left SCV CVL 04/10-DCd? - Left IJ CVL 04/17 Critical care time 35 minutes Avinash Cantu MD Apr 21, 2017 13:27
--- NOTE | 2017-04-21 14:37 | HHI.IDPN ---
Note Infectious Disease Note Patient remains on vent. No distress. Awake and alert follows commands. Afebrile. WBC increased. Noted to have mucous plugging. Chest tube placed for pneumothorax. 76-year-old white male who was admitted to the hospital on 04/10 with epistaxis. The patient has end-stage renal disease and undergoes hemodialysis. When he was evaluated in the emergency department, he had a brief cardiopulmonary arrest and was intubated. PAST MEDICAL HISTORY: 1. Hypertension. 2. Diabetes mellitus. 3. Coronary artery disease. 4. Dyslipidemia. 5. End-stage renal disease. 6. Benign prostate hypertrophy. 7. History of left renal cell carcinoma. 8. Splenectomy. 9. Appendectomy. ALLERGIES: NO KNOWN DRUG ALLERGIES. ANTIBIOTICS: Vancomycin with dialysis. Pip/Tazo. OBJECTIVE: Vital Signs Date Time Temp Pulse Resp B/P (MAP) Pulse Ox O2 Delivery O2 Flow Rate FiO2 04/21/17 13:21 97 40 04/21/17 12:00 69 04/21/17 12:00 40 04/21/17 12:00 98.8 69 16 145/63 (90) 94 04/21/17 10:00 74 04/21/17 09:45 95 40 04/21/17 09:45 40 04/21/17 09:36 95 40 04/21/17 08:00 40 04/21/17 08:00 98.6 76 16 157/69 (98) 95 04/21/17 08:00 76 04/21/17 07:00 95 Mechanical Ventilator 40 04/21/17 06:00 78 04/21/17 04:00 98.3 78 16 143/64 (90) 94 04/21/17 04:00 65 04/21/17 04:00 78 04/21/17 03:30 95 40 04/21/17 02:00 80 04/21/17 01:04 16 04/21/17 00:00 98.5 92 16 161/74 (103) 97 04/21/17 00:00 80 04/21/17 00:00 65 04/20/17 23:35 97 40 04/20/17 22:00 86 04/20/17 20:08 98 50 04/20/17 20:00 65 04/20/17 20:00 97 04/20/17 20:00 98.5 92 16 161/74 (103) 97 04/20/17 19:00 100 Mechanical Ventilator 65 04/20/17 18:00 93 04/20/17 17:48 96 80 04/20/17 17:10 97 100 04/20/17 16:00 98.4 85 16 158/77 (104) 94 04/20/17 16:00 60 04/20/17 16:00 85 Laboratory Tests Test 04/20/17 05:45 04/21/17 04:50 White Blood Count 17.3 TH/MM3 21.5 TH/MM3 Red Blood Count 2.58 MIL/MM3 2.40 MIL/MM3 Hemoglobin 8.2 GM/DL 7.8 GM/DL Hematocrit 25.9 % 24.1 % Mean Corpuscular Volume 100.3 FL 100.5 FL Mean Corpuscular Hemoglobin 31.9 PG 32.6 PG Mean Corpuscular Hemoglobin Concent 31.8 % 32.4 % Red Cell Distribution Width 15.5 % 16.3 % Platelet Count 379 TH/MM3 351 TH/MM3 Mean Platelet Volume 8.2 FL 8.4 FL CBC Comment AUTO DIFF AUTO DIFF Differential Total Cells Counted 100 100 Neutrophils % (Manual) 87 % 92 % Band Neutrophils % 3 % 1 % Lymphocytes % 6 % 5 % Monocytes % 3 % Neutrophils # (Manual) 15.7 TH/MM3 20.0 TH/MM3 Myelocytes 1 % Nucleated Red Blood Cells 5 /100 WBC 1 /100 WBC Differential Comment FINAL DIFF MANUAL FINAL DIFF MANUAL Toxic Granulation 1+ Platelet Estimate NORMAL NORMAL Platelet Morphology Comment NORMAL NORMAL Basophilic Stippling FAINT Acanthocytes 1+ OCC Keratocytes OCC OCC Neutrophils (%) (Auto) 89.4 % Lymphocytes (%) (Auto) 5.7 % Monocytes (%) (Auto) 3.6 % Eosinophils (%) (Auto) 0.6 % Basophils (%) (Auto) 0.7 % Neutrophils # (Auto) 19.2 TH/MM3 Lymphocytes # (Auto) 1.2 TH/MM3 Monocytes # (Auto) 0.8 TH/MM3 Eosinophils # (Auto) 0.1 TH/MM3 Basophils # (Auto) 0.1 TH/MM3 Eosinophils % 2 % Garcia[place] Bodies PRESENT Red Cell Morphology Comment Laboratory Tests Test 04/20/17 05:45 04/20/17 14:00 04/21/17 04:50 Blood Urea Nitrogen 52 MG/DL 31 MG/DL Creatinine 3.79 MG/DL 2.59 MG/DL Random Glucose 209 MG/DL 166 MG/DL 98 MG/DL Albumin 1.9 GM/DL 1.8 GM/DL Calcium Level 9.7 MG/DL 9.2 MG/DL Phosphorus Level 3.9 MG/DL 2.3 MG/DL Sodium Level 139 MEQ/L 142 MEQ/L Potassium Level 3.7 MEQ/L 3.3 MEQ/L Chloride Level 103 MEQ/L 104 MEQ/L Carbon Dioxide Level 26.5 MEQ/L 29.1 MEQ/L Anion Gap 10 MEQ/L 9 MEQ/L Estimat Glomerular Filtration Rate 16 ML/MIN 24 ML/MIN Triglycerides Level 104 MG/DL Cholesterol Level 71 MG/DL LDL Cholesterol 14 MG/DL HDL Cholesterol 36.6 MG/DL Cholesterol/HDL Ratio 1.93 RATIO Lipase 887 U/L Microbiology Date/Time Source Procedure Growth Status 04/20/17 18:00 Bronchial Washings Left Lower Lobe Fungal Smear - Final NO FUNGAL ELEMENTS SEEN. Resulted 04/20/17 18:00 Bronchial Washings Left Lower Lobe Fungal Culture Pending Resulted 04/20/17 18:00 Bronchial Washings Left Lower Lobe Acid Fast Stain Pending Received 04/20/17 18:00 Bronchial Washings Left Lower Lobe Mycobacterial Culture Pending Received 04/20/17 18:00 Bronchial Washings Left Lower Lobe Gram Stain - Final Resulted 04/20/17 18:00 Bronchial Washings Left Lower Lobe Bronchial Culture - Preliminary LIGHT GROWTH NORMAL RESPIRATORY ARABELLA... Resulted Microbiology Date/Time Source Procedure Growth Status 04/14/17 09:38 Blood Peripheral Aerobic Blood Culture Pending Received 04/14/17 09:38 Blood Peripheral Anaerobic Blood Culture Pending Received 04/13/17 17:10 Blood Peripheral Aerobic Blood Culture - Preliminary NO GROWTH IN 1 DAY Resulted 04/13/17 17:10 Blood Peripheral Anaerobic Blood Culture - Preliminary NO GROWTH IN 1 DAY Resulted 04/11/17 20:15 Blood Peripheral Aerobic Blood Culture - Final Staph Sp Coagulase Negative Complete 04/11/17 20:15 Anaerobic Blood Culture - Final Staphylococcus Epidermidis Complete 04/11/17 20:10 Blood Peripheral Aerobic Blood Culture - Final Staph Sp Coagulase Negative Complete 04/11/17 20:10 Anaerobic Blood Culture - Final Staphylococcus Epidermidis Complete 04/11/17 20:10 Sputum Endotracheal Gram Stain - Final Complete 04/11/17 20:10 Sputum Endotracheal Sputum Culture - Final HEAVY GROWTH NORMAL RESPIRATORY ARABELLA Complete 04/12/17 05:58 Urine Catheterized Urine Urine Culture - Final NO GROWTH IN 48 HOURS. Complete IMAGING: Chest X-Ray 04/20/172004 Signed Impressions: Service Date/Time: Thursday, April 20, 2017 20:08 - CONCLUSION: Successful placement of pigtail chest tube with complete resolution of the right-sided tension pneumothorax. Harry Soto MD Chest X-Ray 04/20/17599 Signed Impressions: Service Date/Time: Thursday, April 20, 2017 04:42 - CONCLUSION: 1. Right lower lobe atelectasis versus pneumonia. There has been no significant change when compared to the prior exam. Michael Bhatt MD Chest X-Ray 04/20/17 Signed Impressions: Service Date/Time: Thursday, April 20, 2017 18:07 - CONCLUSION: Large right-sided tension pneumothorax with shift of mediastinum from right to left although the mediastinum has always been slightly shifted. Findings were relayed to the floor. Nurse Amezcua was informed. Harry Soto MD Chest X-Ray 04/20/17 Signed Impressions: Service Date/Time: Thursday, April 20, 2017 16:57 - CONCLUSION: Probable mucous plug on the left. Anthony Claros MD FACGianna Lower Extremity Ultrasound 04/18/17 06 Signed Impressions: Service Date/Time: Tuesday, April 18, 2017 08:08 - CONCLUSION: 1. No sonographic evidence for lower extremity DVT. Cristobal Simpson MD Chest X-Ray 04/18/17 06 Signed Impressions: Service Date/Time: Tuesday, April 18, 2017 04:17 - CONCLUSION: 1. Right lower lobe atelectasis versus pneumonia. There has been no significant change when compared to the prior exam. Michael Bhatt MD Abdomen/Pelvis CT 04/18/17 0000 Signed Impressions: Service Date/Time: Tuesday, April 18, 2017 13:08 - CONCLUSION: Probable impaction with large bolus of stool in the rectum Scattered stool throughout the remainder of the colon Nasogastric tube across the GE junction There is no intra-abdominal abscess. Anthony Claros MD FACGianna Chest X-Ray 04/17/17 0948 Signed Impressions: Service Date/Time: Monday, April 17, 2017 09:59 - CONCLUSION: 1. Worsening right basilar patchiness consistent with possible worsening pneumonia and/or atelectasis. Clinical correlation is recommended. 2. Elevation of the right hemidiaphragm. 3. Endotracheal tube and left internal jugular central line are in good positions. 4. Stable cardiomegaly. 5. Degenerative changes and scoliosis of the thoracolumbar spine. Winston Grande MD Chest X-Ray 04/17/17 0000 Signed Impressions: Service Date/Time: Monday, April 17, 2017 10:58 - CONCLUSION: 1. There is no evidence of pneumothorax. 2. Worsening left lower lobe atelectasis versus pneumonia Michael Bhatt MD Chest X-Ray 04/17/17 0000 Signed Impressions: Service Date/Time: Monday, April 17, 2017 08:38 - CONCLUSION: No significant change compared to 04/16/17. Winston Grande MD Brain MRI 04/17/17 0000 Signed Impressions: Service Date/Time: Monday, April 17, 2017 16:21 - CONCLUSION: 1. Possible normal pressure hydrocephalus. Correlation with clinical findings is necessary. 2. No evidence of acute intracranial pathology. No masses are identified. Michael Bhatt MD Chest X-Ray 04/16/17 0600 Signed Impressions: Service Date/Time: Sunday, April 16, 2017 04:27 - CONCLUSION: Persistent bilateral lower lung zone consolidation versus atelectasis. Increase in aeration of the right lung base. Vin Solis MD PHYSICAL EXAMINATION: GENERAL: No acute distress. Responsive. HEENT: No icterus. mucosa slightly dry. NECK: No adenopathy or swelling. LUNGS: Decreased clear breath sounds. HEART: Irregular. S1 and S2. No audible murmur. ABDOMEN: Bowel sounds present, soft, no tenderness. EXTREMITIES: No clubbing, cyanosis or edema. AV fistula at the right upper extremity appears intact. NEUROLOGIC: sedated. PSYCHIATRIC: Calm. IMPRESSION: 1. Coagulase-negative Staph bacteremia. Patient developed fever and leukocytosis and had episode of cardiopulmonary arrest. 2. End-stage renal disease on hemodialysis. 3. Thrombus in distal cephalic LUE. 4. Abnormal CXR ? pneumonia. 5. Respiratory failure - mucous plug. Probable aspiration. 6. Leukocytosis. persistent. ? infection vs reactive. RECOMMENDATIONS: 1. Continue Vancomycin with dialysis until 04/25/17. 2. Continue Zosyn for pulmonary coverage. 3. Follow bronch culture. 4. Monitor the white blood cell count. 5. Monitor clinical status. Trell Simon MD Apr 21, 2017 14:37
--- NOTE | 2017-04-21 17:49 | HHI.NPPN ---
Subjective History of Present Illness 76-year-old male with a history of end-stage renal disease on maintenance hemodialysis generally Tuesday and Tuesday however he was dialyzed last Tuesday secondary to the holiday. Subsequently developed epistaxis and presented to the emergency room with hypotension and his INR was said to be greater than 13. Patient was on Coumadin apparently for atrial fibrillation. According to the records patient subsequently required cardiopulmonary resuscitation and was intubated. Interval History Pt remains intubated. s/p right chest tube for PTX Indicates that he is in pain, especially in his shoulders (Isis Herman) Review of Systems General General Remarks Unable to obtain (Isis Herman) Objective Data Data 04/21/17 04/22/17 19:00 07:00 Intake Total 80 ml Output Total 0 ml Balance 80 ml IV Total 80 ml Tube Feeding Residual Discard 0 ml Vital Signs Date Time Temp Pulse Resp B/P (MAP) Pulse Ox O2 Delivery O2 Flow Rate FiO2 04/21/17 16:00 40 04/21/17 16:00 74 04/21/17 16:00 98.1 75 16 153/71 (98) 96 04/21/17 14:00 74 04/21/17 13:21 97 40 04/21/17 12:00 69 04/21/17 12:00 40 04/21/17 12:00 98.8 69 16 145/63 (90) 94 04/21/17 10:00 74 04/21/17 09:45 95 40 04/21/17 09:45 40 04/21/17 09:36 95 40 04/21/17 08:00 40 04/21/17 08:00 98.6 76 16 157/69 (98) 95 04/21/17 08:00 76 04/21/17 07:00 95 Mechanical Ventilator 40 04/21/17 06:00 78 04/21/17 04:00 98.3 78 16 143/64 (90) 94 04/21/17 04:00 65 04/21/17 04:00 78 04/21/17 03:30 95 40 04/21/17 02:00 80 04/21/17 01:04 16 04/21/17 00:00 98.5 92 16 161/74 (103) 97 04/21/17 00:00 80 04/21/17 00:00 65 04/20/17 23:35 97 40 04/20/17 22:00 86 04/20/17 20:08 98 50 04/20/17 20:00 65 04/20/17 20:00 97 04/20/17 20:00 98.5 92 16 161/74 (103) 97 04/20/17 19:00 100 Mechanical Ventilator 65 04/20/17 18:00 93 04/20/17 17:48 96 80 (Isis Herman) -: 04/21/17 0450 04/21/17 0450 Microbiology 04/20/17 Fungal Smear - Final, Resulted NO FUNGAL ELEMENTS SEEN. 04/20/17 Fungal Culture, Resulted Pending 04/20/17 Acid Fast Stain, Received Pending 04/20/17 Mycobacterial Culture, Received Pending 04/20/17 Gram Stain - Final, Resulted 04/20/17 Bronchial Culture - Preliminary, Resulted LIGHT GROWTH NORMAL RESPIRATORY ARABELLA... Imaging Last Impressions Chest X-Ray 04/20/172004 Signed Impressions: Service Date/Time: Thursday, April 20, 2017 20:08 - CONCLUSION: Successful placement of pigtail chest tube with complete resolution of the right-sided tension pneumothorax. Harry Soto MD Lower Extremity Ultrasound 04/18/17 0600 Signed Impressions: Service Date/Time: Tuesday, April 18, 2017 08:08 - CONCLUSION: 1. No sonographic evidence for lower extremity DVT. Cristobal Simpson MD Abdomen/Pelvis CT 04/18/17 0000 Signed Impressions: Service Date/Time: Tuesday, April 18, 2017 13:08 - CONCLUSION: Probable impaction with large bolus of stool in the rectum Scattered stool throughout the remainder of the colon Nasogastric tube across the GE junction There is no intra-abdominal abscess. Anthony Claros MD FACR Brain MRI 04/17/17 0000 Signed Impressions: Service Date/Time: Monday, April 17, 2017 16:21 - CONCLUSION: 1. Possible normal pressure hydrocephalus. Correlation with clinical findings is necessary. 2. No evidence of acute intracranial pathology. No masses are identified. Michael Bhatt MD Upper Extremity Ultrasound 04/14/17 0000 Signed Impressions: Service Date/Time: April 10:28 - CONCLUSION: Thrombus is identified within distal cephalic vein. Scottie Donovan MD Head CT 04/12/17 0000 Signed Impressions: Service Date/Time: Wednesday, April 12, 2017 16:08 - CONCLUSION: Chronic changes without hemorrhage mass effect. Scottie Donovan MD Medication Review Current Medications Medications (Trade) Dose Ordered Sig/Terra Route Start Time Stop Time Status Last Admin (Lipitor) 10 mg HS PO 04/10/17 21:00 04/20/17 20:55 (Proscar) 5 mg DAILY PO 04/11/17 09:00 04/21/17 09:00 (Neurontin) 100 mg TID PO 04/10/17 18:00 Future Hold 04/20/17 08:19 (Apresoline) 75 mg TID PO 04/10/17 18:00 04/21/17 17:41 (Flomax) 0.4 mg DAILY PO 04/11/17 09:00 04/21/17 09:00 (NS Flush) 2 ml UNSCH PRN IV FLUSH 04/10/17 16:45 (NS Flush) 2 ml BID IV FLUSH 04/10/17 21:00 04/21/17 09:00 (Tylenol) 650 mg Q6H PRN PO 04/10/17 16:45 (Zofran Inj) 4 mg Q6H PRN IV PUSH 04/10/17 16:45 Miscellaneous Information 1 Q361D XX 04/10/17 16:45 04/10/17 16:45 (Chlorhexidine 2% Cloth) Taper DAILY@04 TOP 04/11/17 04:00 04/07/18 03:59 (Chlorhexidine 2% Cloth) 3 pack UNSCH PRN TOP 04/10/17 16:45 (Dulcolax Supp) 10 mg DAILY PRN RECTAL 04/10/17 16:45 (Lactulose Liq) 30 ml DAILY PRN PO 04/10/17 16:45 (Tylenol Supp) 650 mg Q6H PRN RECTAL 04/10/17 18:45 04/11/17 18:43 Sodium Chloride 1,000 ml @ 0 mls/hr Q0M PRN OTHER 04/12/17 11:15 04/13/17 17:00 (Heparin Inj) UNSCH PRN IV FLUSH 04/12/17 11:30 Sodium Chloride 1,000 ml @ 200 mls/hr Q5H PRN IV 04/12/17 11:15 Sodium Chloride 1,000 ml @ 0 mls/hr Q0M PRN OTHER 04/12/17 11:15 (Mannitol Inj) 12.5 gm UNSCH PRN IV 04/12/17 11:15 Albumin Human 100 ml @ 60 mls/hr UNSCH PRN IV 04/12/17 11:30 (NS Flush) 5 ml UNSCH PRN IV FLUSH 04/12/17 11:15 (Gentamicin (Dialysis) Inj) 20 mg UNSCH PRN OTHER 04/12/17 11:30 (Zofran Inj) 4 mg UNSCH PRN IV PUSH 04/12/17 11:30 (Tylenol) 650 mg UNSCH PRN PO 04/12/17 11:30 (Benadryl) 25 mg UNSCH PRN PO 04/12/17 11:30 (Nitrostat Sl) 0.4 mg UNSCH PRN SL 04/12/17 11:30 (Catapres) 0.1 mg UNSCH PRN PO 04/12/17 11:30 04/16/17 20:56 (Epogen Inj) 10,000 units UNSCH PRN IV PUSH 04/12/17 11:30 04/20/17 13:16 (Gelfoam 12 Mm/7 Mm Top) 1 foam UNSCH PRN TOP 04/12/17 11:30 04/20/17 13:16 (Morphine Inj) 1 mg Q4H PRN IV PUSH 04/15/17 14:45 04/21/17 16:26 (Renvela) 800 mg TIDAC PO 04/15/17 17:00 04/21/17 09:00 (Apresoline Inj) 10 mg Q1HR PRN IV PUSH 04/15/17 19:30 04/17/17 08:48 (Trandate Inj) 10 mg Q1HR PRN IV PUSH 04/15/17 19:30 04/17/17 02:46 (Nitroglycerin 2% Oint) 2 inch Q6HR PRN TOPICAL 04/15/17 19:30 04/15/17 21:10 Vancomycin HCl 1000 mg/Sodium Chloride 250 ml @ 250 mls/hr WITH DIALYSIS IV 04/16/17 13:45 04/20/17 13:16 (Peridex 0.12% Liq) 15 ml BID@08,20 MT 04/17/17 20:00 04/21/17 09:03 Fentanyl Citrate 250 ml @ 5 mls/hr TITRATE PRN IV 04/17/17 09:00 (NS Flush) DAILY IV FLUSH 04/17/17 10:00 04/20/17 08:16 (NS Flush) UNSCH PRN IV FLUSH 04/17/17 10:00 (Tears Naturale Opth Soln) 1 drop Q8HR EACH EYE 04/17/17 14:00 04/21/17 13:11 (Albuterol Neb) 2.5 mg Q2HR NEB PRN NEB 04/17/17 10:30 (Sodium Chloride 3% Neb) 2 ml Q6HR NEB NEB 04/17/17 16:00 04/21/17 09:36 (Colace Liq) 100 mg Q12HR PO 04/17/17 21:00 04/20/17 08:18 (Senna Liq) 8.8 mg BID PO 04/17/17 21:00 04/20/17 08:18 Midazolam HCl 100 ml @ 2 mls/hr TITRATE PRN IV 04/17/17 12:30 04/18/17 04:06 Norepinephrine Bitartrate 4 mg/ Sodium Chloride 250 ml @ 7.5 mls/hr TITRATE PRN IV 04/17/17 09:31 04/17/17 23:04 Piperacillin Sod/ Tazobactam Sod 50 ml @ 100 mls/hr Q12H IV 04/18/17 20:00 04/21/17 09:00 (D50w (Vial) Inj) 50 ml UNSCH PRN IV PUSH 04/20/17 12:00 (Glucagon Inj) 1 mg UNSCH PRN OTHER 04/20/17 12:00 (NovoLIN R SUPPLEMENTAL SCALE) 1 Q6HR SQ 04/20/17 12:00 04/20/17 12:00 (Protonix Inj) 40 mg DAILY IV PUSH 04/21/17 09:00 04/21/17 09:00 (Levemir Inj) 10 units Q12HR SQ 04/20/17 21:00 04/21/17 09:04 (Robitussin Liq) 400 mg Q8HR PO 04/20/17 22:00 04/21/17 13:11 (Isis Herman) Physical Exam General Appearance: No Acute Distress, Comfortable, Malnourished (Isis Herman) Pulmonary Resp Exam: Clear Bilaterally, Breath Sounds Equal Resp Remarks right sided pig-tail chest tube present. No output (Isis Herman) Cardiology CV Exam: Regular, Normal Sinus Rhythm (Isis Herman) Gastrointestinal/Abdomen GI Exam: Soft, Non-Tender (Isis Herman) Integumentary Skin Exam: Clear, Warm (Isis Herman) Extremeties Extremities Exam: Moderate Edema (bipedal, LEs, hands, and arms) (Isis Herman) Neurologic Neuro Exam: Awake (Isis Herman) Assessment/Plan Problem List: (1) ESRD (end stage renal disease) on dialysis ICD Codes: N18.6 - End stage renal disease; Z99.2 - Dependence on renal dialysis Status: Chronic Plan: Continue hemodialysis Tuesday and Tuesday. UF 3.5L on 04/22 Patient as a history of debilitation and marginal nutritional status but was making some improvement until this acute episode. Uncertain in regard to patient's ability to be rehabilitated to a significant degree at this point in time. Palliative care on board and his daughter will be visiting over the weekend. Medications should be adjusted for the patient's ESRD. Avoid gadolinium (2) Respiratory failure ICD Codes: J96.90 - Respiratory failure, unspecified, unspecified whether with hypoxia or hypercapnia Plan: Intubated 2/2 to mucous plug Right sided PTX s/p pig-tail chest tube (3) Hypercalcemia associated with chronic dialysis ICD Codes: E83.52 - Hypercalcemia Status: Chronic Plan: Patient has a history of previous hypercalcemia which was evaluated for and no specific etiology determined. Resolved at the present Mild hypercalcemia has resolved. Continue on 2.0 calcium hemodialysis bath ordered Pending Calcitriol level (4) Anemia of renal disease ICD Codes: D63.1 - Anemia in chronic kidney disease Status: Chronic Plan: Continue Epogen for anemia renal disease. (5) Epistaxis ICD Codes: R04.0 - Epistaxis Status: Resolved (6) Coumadin toxicity ICD Codes: T45.511A - Poisoning by anticoagulants, accidental (unintentional), initial encounter Status: Resolved Plan: Defer anticoagulation management to primary care physician. (7) HTN (hypertension) ICD Codes: I10 - Essential (primary) hypertension Status: Chronic (Isis Herman) Plan The exam, history, and the medical decision-making described in the above note were completed with the assistance of the PA-Veronica. I reviewed and agree with the findings presented. (Danita Maria MD) Isis Herman Apr 21, 2017 17:49 Danita Maria MD Apr 22, 2017 15:07
[2017-04-21] MEDS: RESP: ALBUTEROL 2.5 MG/3 ML NEB (PRN) NEB ×2 (18:29→20:32)
[2017-04-21] MEDS: ATORVASTATIN 10 MG TAB PO SCH (21:19)
[2017-04-22] VITALS (17 sets, daily range): BP systolic 122–157; BP diastolic 58–76; PULSE 66–90; RESP 16–18; TEMP 98.3–99.7; O2SAT 90–97
[2017-04-22] MEDS: MORPHINE SULFATE 2 MG/ML INJ IV PUSH PRN ×4 (02:35→22:30)
[2017-04-22] MEDS: RESP: SODIUM CHLORIDE 3% 4 ML NEB NEB SCH ×4 (03:44→20:38)
[2017-04-22] MEDS: RESP: ALBUTEROL 2.5 MG/3 ML NEB (PRN) NEB ×2 (03:44→08:14)
[2017-04-22] MEDS: CHLORHEXIDINE GLUCONATE 2 % 1 PACK (2 CLOTHS) TOP SCH (04:00)
[2017-04-22] MEDS: guaiFENesin SOLUTION 200 MG/10 ML CUP PO SCH ×3 (06:00→21:11)
[2017-04-22] MEDS: INSULIN NovoLIN REGULAR SUPPLEMENTAL SCALE SQ SCH ×4 (06:00→18:00)
[2017-04-22] MEDS: ARTIFICIAL TEARS OPTH SOLN 15 ML BTL EACH EYE SCH ×3 (06:00→21:11)
[2017-04-22 06:30] LABS: HEMOGLOBIN 7.4 GM/DL (13.0-17.0); MEAN CELL VOLUME 99.3 FL (80.0-100.0); MEAN CORPUSCULAR HEMOGLOBIN 32.1 PG (27.0-34.0); MEAN CORPUSCULAR HGB CONC 32.3 % (32.0-36.0); MEAN PLATELET VOLUME 8.3 FL (7.0-11.0); PLATELET COUNT 347 TH/MM3 (150-450); RED BLOOD COUNT 2.32 MIL/MM3 (4.50-5.90); RED CELL DISTRIBUTION WIDTH 16.3 % (11.6-17.2); WHITE BLOOD COUNT 19.3 TH/MM3 (4.0-11.0)
[2017-04-22 07:10] LABS: ALBUMIN 1.6 GM/DL (3.4-5.0); BICARBONATE 28.1 MEQ/L (21.0-32.0); CALCIUM 9.5 MG/DL (8.5-10.1); CREATININE 3.52 MG/DL (0.60-1.30); PHOSPHORUS 3.3 MG/DL (2.5-4.9)
[2017-04-22] MEDS: CHLORHEXIDINE 0.12% (ORAL KIT) 15 ML CUP MT SCH ×2 (08:00→19:50)
[2017-04-22] MEDS: PIPERACIL-TAZO 2.25 GM PREMIX 50 ML IV SCH ×2 (08:00→19:53)
[2017-04-22] MEDS: DOCUSATE SODIUM 100 MG/10 ML UDC PO SCH ×2 (08:26→20:13)
[2017-04-22] MEDS: SENNOSIDES SYRUP 8.8 MG/5 ML CUP PO SCH ×2 (08:27→20:13)
[2017-04-22] MEDS: INSULIN DETEMIR 100 UNITS/ML VIAL SQ SCH ×2 (08:28→20:32)
[2017-04-22] MEDS: SEVELAMER CARBONATE 800 MG TAB PO SCH ×3 (08:45→16:48)
[2017-04-22] MEDS: SODIUM CHLORIDE 0.9% FLUSH 10 ML FLUSH IV FLUSH SCH ×3 (08:45→19:53)
[2017-04-22] MEDS: TAMSULOSIN HCL 0.4 MG CAP PO SCH (08:46)
[2017-04-22] MEDS: PANTOPRAZOLE SODIUM 40 MG VIAL IV PUSH SCH (08:46)
[2017-04-22] MEDS: FINASTERIDE 5 MG TAB PO SCH (08:46)
[2017-04-22] MEDS: hydrALAZINE HCL 25 MG TAB PO SCH ×3 (08:46→16:49)
[2017-04-22] MEDS: GELATIN 12 MM/7 MM FOAM TOP PRN (08:50)
[2017-04-22] MEDS: EPOETIN ALFA 10,000 UNITS/ML VIAL IV PUSH PRN (08:51)
[2017-04-22] MEDS: VANCOMYCIN INJ 1,000 MG in SODIUM CHLOR 0.9% 250 ML INJ 250 ML IV SCH (08:52)
--- NOTE | 2017-04-22 11:52 | RADRPT ---
EXAM DATE/TIME: 04/22/2017 11:06 [facility] COMPARISON: CHEST SINGLE AP, April 20, 2017, 20:08. INDICATIONS : Shortness of breath. Concern for pneumothorax. MEDICAL HISTORY : Hypertension. Stage 3 renal disease. SURGICAL HISTORY : None. ENCOUNTER: Initial ACUITY: 1 day PAIN SCORE: Non-responsive. LOCATION: Bilateral chest FINDINGS: 2 AP views of the chest demonstrate a normal-sized cardiac silhouette with calcification of the aorta . ETT, left IJ line, and nasogastric tube remain present. Chest tube remains present in the inferior right hemithorax. No pneumothorax is visualized. There is volume loss at the right lung base. Left aida ng demonstrates no abnormality. CONCLUSION: 1. Right chest tube remains present and may have been retracted slightly. No pneumothorax is visualiz ed. 2. Volume loss at the right lung base. Willy Whitt MD on April 22, 2017 at 11:42 Board Certified Radiologist. This report was verified electronically.
--- NOTE | 2017-04-22 12:59 | HHI.CCPN ---
Subjective Remarks/Hospital Course 76 y/o man developed a persistent nose bleed this morning after dialysis. In ED his INR was > 13 and he received Kcentra for warfarin reversal (permanent a-fib) . Due to airway problems from blood and hypovolemia he sustained a brief cardiopulmonary arrest in the [place] ED requiring intubation and ventilation. He was aggressively resuscitated by the staff at [facility] and transferred [facility] [place]. He arrived to the [facility] with BP 52/25 and pulse rate 44. Two units of type specific blood were administered and levophed initiated at 20 mics/min. A central line was placed revealing CVP < 5 while on positive pressure ventilation. Resuscitation is continuing. 04/11/17: Currently epistaxis is controlled. Patient is off Levophed, hypertensive. PRN hydralazine added. Patient continues to have coffee-ground output from the NG tube large amount. INR is 2.8 have added FFP 2 units and vitamin K stat. Repeat CBC and INR stat 04/12/17: Remains intubated but wakes up easily follows commands. Left upper extremity weaker. INR was 3.3 yesterday received 2 units FFP and vitamin K repeat INR pending. No further epistaxis and NGT output minimal 04/13/17: Extubated yesterday tolerating well. Blood cultures 4 out of 4 bottles positive for coag negative staph. ID consulted 2-D echo ordered. No further epistaxis reported. refused EGD 04/14/17: Protecting airway. 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 Intermittent confusion, but on my exam AOx3 04/15/17: More lethargic today, but wakes up and follows commands. Received morphine 2 mg at 8 AM. Getting hemodialysis today. Will reduce Morphine from 2 to 1 mg. Also WBC count is elevated, to 20.7 04/16/17: Patient remains lethargic encephalopathy, but wakes up remains oriented to person and place. WBC count slightly further elevated to 21.6. Currently on vancomycin and Zosyn. Azithromycin added by infectious diseases have changed to IV. Repeat swallow eval 04/17: Patient went to acute respiratory arrest likely secondary to hypoxia etiology likely aspiration. Please see CPR note. Copious amounts of brownish secretions for ET tube and central line placed emergently. Attempts to contact Aylin Avila [phone] unsuccessful 04/18: Afebrile. FiO2 down to 40%. Continues with some bloody secretions. ET tube. Tolerating tube feeds. Positive BM. requesting palliative care consultation. 04/19: Tolerated PSV trial yesterday. -3500 cc with hemodialysis. Afebrile. One bowel movement. CT abdomen/pelvis revealed large stool impaction rectum. 04/20: Currently afebrile. Hemodialysis scheduled for today. We will attempt PSV trial afterwards. Positive BM. FiO2 60% overnight currently at 40%. 04/21: Yesterday, mucus plugging left-sided. Bronchoscopy. Pneumothorax right sided post bronchoscopy. Chest tube placed. Currently on 40% FiO2. Looks much improved. Complaining of constipation. Subjective 04/22: Afebrile. Currently undergoing hemodialysis. Remains intermittently apneic on PSV trials. Arousable and follow commands. Currently down to 40% FiO2. Appears comfortable. Objective Vital Signs Date Time Temp Pulse Resp B/P (MAP) Pulse Ox O2 Delivery O2 Flow Rate FiO2 04/22/17 12:30 97 40 04/22/17 08:00 68 04/22/17 07:00 Mechanical Ventilator 04/22/17 04:00 98.3 16 139/65 (89) Intake and Output 04/22/17 04/22/17 04/23/17 08:00 16:00 00:00 Intake Total 250 ml Output Total 0 ml 3000 ml Balance 0 ml -2750 ml Result Diagram: 04/22/17 0605 04/22/17 0605 Other Results Microbiology Date/Time Source Procedure Growth Status 04/14/17 09:38 Blood Peripheral Aerobic Blood Culture - Final NO GROWTH IN 5 DAYS Complete 04/14/17 09:38 Blood Peripheral Anaerobic Blood Culture - Final NO GROWTH IN 5 DAYS Complete 04/20/17 18:00 Bronchial Washings Left Lower Lobe Fungal Smear - Final NO FUNGAL ELEMENTS SEEN. Resulted 04/20/17 18:00 Bronchial Washings Left Lower Lobe Fungal Culture Pending Resulted 04/12/17 05:58 Urine Catheterized Urine Urine Culture - Final NO GROWTH IN 48 HOURS. Complete Imaging Last Impressions Chest X-Ray 04/22/17 0000 Signed Impressions: Service Date/Time: Saturday, April 22, 2017 11:06 - CONCLUSION: 1. Right chest tube remains present and may have been retracted slightly. No pneumothorax is visualized. 2. Volume loss at the right lung base. Willy Whitt MD Lower Extremity Ultrasound 04/18/17 0600 Signed Impressions: Service Date/Time: Tuesday, April 18, 2017 08:08 - CONCLUSION: 1. No sonographic evidence for lower extremity DVT. Cristobal Simpson MD Abdomen/Pelvis CT 04/18/17 0000 Signed Impressions: Service Date/Time: Tuesday, April 18, 2017 13:08 - CONCLUSION: Probable impaction with large bolus of stool in the rectum Scattered stool throughout the remainder of the colon Nasogastric tube across the GE junction There is no intra-abdominal abscess. Anthony Claros MD FACR Brain MRI 04/17/17 0000 Signed Impressions: Service Date/Time: Monday, April 17, 2017 16:21 - CONCLUSION: 1. Possible normal pressure hydrocephalus. Correlation with clinical findings is necessary. 2. No evidence of acute intracranial pathology. No masses are identified. Michael Bhatt MD Upper Extremity Ultrasound 04/14/17 0000 Signed Impressions: Service Date/Time: April 10:28 - CONCLUSION: Thrombus is identified within distal cephalic vein. Scottie Donovan MD Head CT 04/12/17 0000 Signed Impressions: Service Date/Time: Wednesday, April 12, 2017 16:08 - CONCLUSION: Chronic changes without hemorrhage mass effect. Scottie Donovan MD Objective Remarks Gen: 76-year-old male, critically ill currently resting in bed orotracheally intubated ENT: No epistaxis. Oropharynx with dried secretions. No oropharyngeal edema. Neck: Supple, no JVD. Left IJ is clean dry and intact Lungs: Chest bilaterally. Coarse rhonchi. No wheezing. Right pigtail catheter intact -30 cc clear yellow overnight -40 cm H2O Heart: Irreg Irreg, 3/6 THIERRY, LSB. Neck veins not distended. Abdomen: Nondistended, quiet. No guarding. Multiple well-healed surgical scars Extremities: Cool and pale. Neuro: Radial nerves II through XII grossly intact. Moves all 4 extremity spontaneously/withdraws to noxious stimuli. Date of Insertion: Apr 17, 2017 Line: Central Venous Catheter Location: Internal, Jugular A/P Assessment and Plan Neuro/Psych: Acute toxic metabolic encephalopathy secondary to sepsis Bilateral cataracts PECHANGA Currently off all sedation. Goal of RASS -0 Will hold gabapentin 100 mg 3 times a day/home medication for neuropathy. Check gabapentin level Metabolic encephalopathy most likely secondary to sepsis, possibly medication induced CT head on admission revealed no acute intracranial findings. Chronic changes Weakness of left upper extremity most likely related to arthritis and rotator cuff tendinitis- MRI brain 04/17 revealed possible normal pressure hydrocephalus. Asymptomatic from this aspect.. Respiratory Acute hypoxic respiratory failure likely secondary to aspiration Recurrent mucus plugging Right pneumothorax PRVC 15/550/1.3/40 Ventilator bundle Albuterol/ipratropium aerosols every 6 hours with albuterol aerosols every 2 hours. Dyspnea Hypertonic saline aerosols every 6 hours to thin secretions Guaifenesin 400 mg every 8 hours mucolytic Spontaneous breathing trials when clinically indicated Follow-up chest x-ray revealed likely mucus plugging right main bronchus below the right upper lobe. Bronchoscopy performed revealed externally frontal mucosa. Thick brown/bloody Mucous plugging right bronchus distal to right upper lobe. - Extubated 04/12 protecting airway - reintubated 04/17 Right pigtail Chest tube -40 cm H2O with 30 cc overnight. CV PEA secondary to respiratory arrest secondary to aspiration resolved Atrial fibrillation Hypotension Dyslipidemia Currently off all vasopressors 2-D echocardiogram revealed EF 60-65%. Right atrium mildly dilated. Moderate MR/TR. PAP 50-60 mmHg Troponin peaked at 0.39. Currently 0.36 Remains in atrial fibrillation/flutter rates between 40 and 80 Currently on atorvastatin 10 mg daily/40 mg daily at home for dyslipidemia Discontinue furosemide 20 mg twice a day. No urine output 6 days Currently hydralazine 75 mg every 8 hours. GI Gastroesophageal reflux disease History of splenectomy Hypoalbuminemia Continue tube feeds with Nepro @ 45 cc an hour per nutrition's recommendations Lansoprazole 30 mg daily -Docusate sodium twice a day/senna twice daily for bowel regimen. BPH End-stage renal disease - hemodialysis Tuesday/Tuesday/Tuesday - Monitor UO. ESRD on HD, getting hemodialysis today - Renal - Dr. Maria Continue tamsulosin 0.4 mg daily and finasteride 5 mill grams daily. Unable to crush down NG tube currently No He. Bladder scan no urine Heme Epistaxis-resolved - Dr. Stewart followed Warfarin coagulopathy/toxicity - resolved Warfarin coagulopathy resolved post- Kcentra and DDAVP and 2U FFP and 10 mg vitamin K 04/11 Left cephalic vein superficial thrombosis Leukocytosis Normocytic anemia - admission with acute blood loss anemia Monitor CBC daily. Follow trends Currently with superficial thrombosis/no DVT prophylaxis or resumption of warfarin due to high risk of bleeding Follow-up on coags were elevated at 2.6 his Hernandez received vitamin K 10 mg IV and FFP 2 units. Recheck in a.m. ID: Staph epi bacteremia - 4 out of 4 bottles staph epi bacteremia-source probably dialysis access. Repeat blood culture 04/13 negative - 2-D echo- no vegetation. ID consult appreciated - Continue IV vancomycin, continue azithromycin stop date 04/20 and piperacillin/ tazobactam for pulmonary coverage - Repeat sputum culture FEN: Hypopotassemia Check PTH - elevated at 325 and calcitriol levels pending. Vitamin D levels 25 normal. Sevelamer 800 mg 3 times a day for hyperphosphatemia - switch Fosrenol for phosphate binder when medically indicated Replace electrolytes as clinically indicated Lines - Left SCV CVL 04/10-DCd? - Left IJ CVL 04/17 Critical care time 35 minutes Avinash Cantu MD Apr 22, 2017 12:59
--- NOTE | 2017-04-22 15:07 | HHI.NPPN ---
Subjective History of Present Illness 76-year-old male with a history of end-stage renal disease on maintenance hemodialysis generally Tuesday and Tuesday however he was dialyzed last Tuesday secondary to the holiday. Subsequently developed epistaxis and presented to the emergency room with hypotension and his INR was said to be greater than 13. Patient was on Coumadin apparently for atrial fibrillation. According to the records patient subsequently required cardiopulmonary resuscitation and was intubated. Interval History Patient remains intubated on ventilatory support. Review of Systems General General Remarks Unable to obtain Objective Data Data 04/22/17 04/23/17 19:00 07:00 Intake Total 250 ml Output Total 3000 ml Balance -2750 ml IV Total 250 ml Hemodialysis 3000 ml Vital Signs Date Time Temp Pulse Resp B/P (MAP) Pulse Ox O2 Delivery O2 Flow Rate FiO2 04/22/17 12:30 97 40 04/22/17 08:15 97 40 04/22/17 08:00 68 04/22/17 07:00 96 Mechanical Ventilator 40 04/22/17 04:17 92 40 04/22/17 04:00 98.3 67 16 139/65 (89) 93 04/22/17 04:00 40 04/22/17 04:00 69 04/22/17 03:35 16 04/22/17 02:40 16 04/22/17 02:00 74 04/22/17 00:00 69 04/22/17 00:00 98.7 69 16 127/58 (81) 96 04/22/17 00:00 40 04/21/17 23:41 96 40 04/21/17 22:00 69 04/21/17 20:32 94 40 04/21/17 20:00 98.7 69 16 127/58 (81) 96 04/21/17 20:00 69 04/21/17 20:00 40 04/21/17 19:00 96 Mechanical Ventilator 40 04/21/17 18:00 70 04/21/17 16:00 40 04/21/17 16:00 74 04/21/17 16:00 98.1 75 16 153/71 (98) 96 -: 04/22/17 0605 04/22/17 0605 Physical Exam General Appearance: No Acute Distress, Comfortable, Malnourished Pulmonary Resp Exam: Clear Bilaterally, Breath Sounds Equal Cardiology CV Exam: Regular, Normal Sinus Rhythm Gastrointestinal/Abdomen GI Exam: Soft, Non-Tender Integumentary Skin Exam: Clear, Warm Extremeties Extremities Exam: Trace Edema Neurologic Neuro Exam: Awake Assessment/Plan Problem List: (1) ESRD (end stage renal disease) on dialysis ICD Codes: N18.6 - End stage renal disease; Z99.2 - Dependence on renal dialysis Status: Chronic Plan: Continue hemodialysis Tuesday and Tuesday. Noted patient has developed a pneumothorax and now has chest tube in place. Patient as a history of debilitation and marginal nutritional status but was making some improvement until this acute episode. Uncertain in regard to patient's ability to be rehabilitated to a significant degree at this point in time. Palliative care on board and his daughter will be visiting over the weekend. Medications should be adjusted for the patient's ESRD. Avoid gadolinium (2) Respiratory failure ICD Codes: J96.90 - Respiratory failure, unspecified, unspecified whether with hypoxia or hypercapnia Plan: Intubated 2/2 to mucous plug Right sided PTX s/p pig-tail chest tube (3) Hypercalcemia associated with chronic dialysis ICD Codes: E83.52 - Hypercalcemia Status: Chronic Plan: Patient has a history of previous hypercalcemia which was evaluated for and no specific etiology determined. Resolved at the present Mild hypercalcemia has resolved. Continue on 2.0 calcium hemodialysis bath ordered Pending Calcitriol level (4) Anemia of renal disease ICD Codes: D63.1 - Anemia in chronic kidney disease Status: Chronic Plan: Continue Epogen for anemia renal disease. (5) Epistaxis ICD Codes: R04.0 - Epistaxis Status: Resolved (6) Coumadin toxicity ICD Codes: T45.511A - Poisoning by anticoagulants, accidental (unintentional), initial encounter Status: Resolved Plan: Defer anticoagulation management to primary care physician. (7) HTN (hypertension) ICD Codes: I10 - Essential (primary) hypertension Status: Chronic Danita Maria MD Apr 22, 2017 15:07
[2017-04-22] MEDS: RESP: ALBUTEROL 2.5 MG/IPRATROPIUM 0.5 MG NEB (SCH) NEB ×2 (16:27→20:38)
--- NOTE | 2017-04-22 17:23 | HHI.HCPN ---
Reason for visit a. To assist with evaluation and management of symptoms including: Debility , encephalopathy, pain b. To assist medical decision maker(s) with: better understanding of current medical conditions; weighing benefits/burdens of medical treatment options; making medical treatment decisions. Subjective/Interval History Mr. Avila is a 76-year-old male with ESRD admitted with epistaxis, coagulopathy, PNA and bacteremia status post CPR 2. Follow-up visit for symptom management and clarification of medical treatment goals. Patient remains intubated on mechanical ventilator on 40% FiO2 O2, he remains intermittently apneic on PSV trials. Patient had mucus plugging on 04/20/16 with subsequent bronchoscopy; pneumothorax status post bronchoscopy the with right- sided pigtail chest tube basement. Follow-up chest x-ray this morning showing pneumothorax has resolved, volume loss in the right lung base. He denies pain or shortness of breath on exam. PRN Morphine dose increased to 2 mg every 4 hours for pain rated 6-10. Patient has received PRN morphine 2 mg IV 2 in the past 24 hours or nonverbal pain as evidenced by facial grimacing, tears and frowning Patient is off sedation. He is awake, eyes open. Answers yes no questions by nodding and shaking head, attempting to communicate by mouthing words. Follows commands consistently with upper and lower extremities bilaterally. Left upper extremity remains weak; all other extremities with purposeful and spontaneous movement. Afebrile. Follow-up blood cultures and bronchial washings from 04/14/2017 remain negative today Patient remains on Zosyn; will continue vancomycin with dialysis until 04/25/2017. Completed IV azithromycin course. Infectious disease following. . Family/friend interactions Attempted to contact patient's via telephone. Message left on [employer]. Family has requested tentative family meeting sometime on Tuesday04/25/2017. Requested that the patient's contact palliative care to schedule a family meeting, awaiting return phone call. . Advance Directives Living Will: Never completed Health Care Surrogate: Never completed Durable Power of Product Specialist: Never completed Advance Directive Specifics Health Care Surrogate(s): Per [place] statutes, in the absence of written advanced directives healthcare proxy decision-making falls to the patient's . . Documented care wishes: No known documented care wishes have been completed. . Objective Vital Signs Date Time Temp Pulse Resp B/P (MAP) Pulse Ox O2 Delivery O2 Flow Rate FiO2 04/22/17 16:27 90 100 04/22/17 12:30 97 40 04/22/17 08:15 97 40 04/22/17 08:00 68 04/22/17 07:00 96 Mechanical Ventilator 40 04/22/17 04:17 92 40 04/22/17 04:00 98.3 67 16 139/65 (89) 93 04/22/17 04:00 40 04/22/17 04:00 69 04/22/17 03:35 16 04/22/17 02:40 16 04/22/17 02:00 74 04/22/17 00:00 69 04/22/17 00:00 98.7 69 16 127/58 (81) 96 04/22/17 00:00 40 04/21/17 23:41 96 40 04/21/17 22:00 69 04/21/17 20:32 94 40 04/21/17 20:00 98.7 69 16 127/58 (81) 96 04/21/17 20:00 69 04/21/17 20:00 40 04/21/17 19:00 96 Mechanical Ventilator 40 04/21/17 18:00 70 Intake & Output 04/22/17 04/22/17 07:00 19:00 Intake Total 250 ml Output Total 0 ml 3000 ml Balance 0 ml -2750 ml IV Total 250 ml Tube Feeding Residual Discard 0 ml Hemodialysis 3000 ml . Physical Exam CONSTITUTIONAL/GENERAL: This is a frail appearing, elderly male patient currently intubated on chemical ventilation TUBES/LINES/DRAINS: CVL, ETT, OGT, PIV x 2, AV fistula, soft restraints SKIN: Ecchymoses on upper extremities. No wounds seen anteriorly. Skin temperature appropriate. Not diaphoretic. HEAD: Atraumatic. Normocephalic. EYES: Pupils equal and round and reactive. No scleral icterus. No injection or drainage. Fundi not examined. ENT: Hearing grossly normal. No epistaxis. Mucous membranes dry NECK: Trachea midline. CARDIOVASCULAR: Irregularly irregular. No JVD Peripheral pulses symmetric. RESPIRATORY/CHEST: Intubated on mechanical ventilator. Coarse rhonchi. Right pigtail catheter intact GASTROINTESTINAL: Abdomen soft, non-tender, nondistended. No guarding. Bowel sounds present. Tolerating artificial nutrition, [place] at 45 miles per hour GENITOURINARY: Without palpable bladder distension. MUSCULOSKELETAL: Extremities without clubbing or cyanosis. 2+ edema in feet and hands bilaterally. LYMPHATICS: No palpable cervical or supraclavicular adenopathy. NEUROLOGICAL: Awake with eyes open. Alert. Answers yes no questions by nodding or shaking head. Attempting to make needs known by mouthing words. Follows simple commands consistently. All 4 extremities to command/withdraws to noxious stimuli. PSYCHIATRIC: Unable to assess secondary to patient's clinical condition . Diagnostic Tests Laboratory Laboratory Tests Test 04/19/17 22:25 04/20/17 05:45 04/20/17 14:00 04/20/17 18:00 Blood Gas Puncture Site LT BRACHIAL Blood Gas Patient Temperature 98.6 Blood Gas HCO3 28 mmol/L (22-26) Blood Gas Base Excess 4.3 mmol/L (-2-2) Blood Gas Oxygen Saturation 91 % (90-100) Arterial Blood pH 7.48 (7.380-7.420) Arterial Blood Partial Pressure CO2 38 mmHg (38-42) Arterial Blood Partial Pressure O2 66 mmHg (61-120) Arterial Blood Oxygen Content 11.0 Vol % (12.0-20.0) Arterial Blood Carboxyhemoglobin 1.5 % (0-4) Arterial Blood Methemoglobin 1.2 % (0-2) Blood Gas Hemoglobin 8.5 G/DL (12.0-16.0) Oxygen Delivery Device VENTILATOR Blood Gas Ventilator Setting SEE COMMENT Blood Gas Inspired Oxygen 65 % White Blood Count 17.3 TH/MM3 (4.0-11.0) Red Blood Count 2.58 MIL/MM3 (4.50-5.90) Hemoglobin 8.2 GM/DL (13.0-17.0) Hematocrit 25.9 % (39.0-51.0) Mean Corpuscular Volume 100.3 FL (80.0-100.0) Mean Corpuscular Hemoglobin 31.9 PG (27.0-34.0) Mean Corpuscular Hemoglobin Concent 31.8 % (32.0-36.0) Red Cell Distribution Width 15.5 % (11.6-17.2) Platelet Count 379 TH/MM3 (150-450) Mean Platelet Volume 8.2 FL (7.0-11.0) CBC Comment AUTO DIFF Differential Total Cells Counted 100 Neutrophils % (Manual) 87 % (16-70) Band Neutrophils % 3 % (0-6) Lymphocytes % 6 % (9-44) Monocytes % 3 % (0-8) Neutrophils # (Manual) 15.7 TH/MM3 (1.8-7.7) Myelocytes 1 % (0-0) Nucleated Red Blood Cells 5 /100 WBC (0-0) Differential Comment FINAL DIFF MANUAL Toxic Granulation 1+ (NORMAL) Platelet Estimate NORMAL (NORMAL) Platelet Morphology Comment NORMAL (NORMAL) Basophilic Stippling FAINT (NORMAL) Acanthocytes 1+ (NORMAL) Keratocytes OCC (NORMAL) Blood Urea Nitrogen 52 MG/DL (7-18) Creatinine 3.79 MG/DL (0.60-1.30) Random Glucose 209 MG/DL (74-106) 166 MG/DL (74-106) Albumin 1.9 GM/DL (3.4-5.0) Calcium Level 9.7 MG/DL (8.5-10.1) Phosphorus Level 3.9 MG/DL (2.5-4.9) Sodium Level 139 MEQ/L (136-145) Potassium Level 3.7 MEQ/L (3.5-5.1) Chloride Level 103 MEQ/L (98-107) Carbon Dioxide Level 26.5 MEQ/L (21.0-32.0) Anion Gap 10 MEQ/L (5-15) Estimat Glomerular Filtration Rate 16 ML/MIN (>89) Triglycerides Level 104 MG/DL (42-150) Cholesterol Level 71 MG/DL (120-200) LDL Cholesterol 14 MG/DL (0-99) HDL Cholesterol 36.6 MG/DL (40.0-60.0) Cholesterol/HDL Ratio 1.93 RATIO Lipase 887 U/L (73-393) Bronchoalveolar Lavage WBC 1315 /MM3 Bronchoalveolar Lavage RBC 215 /MM3 Bronchoalveolar Lavage Neutrophils 92 % Bronchoalveolar Lavage Lymphocytes 4 % Lavage Fluid Total Volume 11.0 ML Lavage Fluid Total WBC Count 14.465 MILLION (4.700-7.100) Test 04/21/17 04:50 04/22/17 06:05 White Blood Count 21.5 TH/MM3 (4.0-11.0) 19.3 TH/MM3 (4.0-11.0) Red Blood Count 2.40 MIL/MM3 (4.50-5.90) 2.32 MIL/MM3 (4.50-5.90) Hemoglobin 7.8 GM/DL (13.0-17.0) 7.4 GM/DL (13.0-17.0) Hematocrit 24.1 % (39.0-51.0) 23.0 % (39.0-51.0) Mean Corpuscular Volume 100.5 FL (80.0-100.0) 99.3 FL (80.0-100.0) Mean Corpuscular Hemoglobin 32.6 PG (27.0-34.0) 32.1 PG (27.0-34.0) Mean Corpuscular Hemoglobin Concent 32.4 % (32.0-36.0) 32.3 % (32.0-36.0) Red Cell Distribution Width 16.3 % (11.6-17.2) 16.3 % (11.6-17.2) Platelet Count 351 TH/MM3 (150-450) 347 TH/MM3 (150-450) Mean Platelet Volume 8.4 FL (7.0-11.0) 8.3 FL (7.0-11.0) Neutrophils (%) (Auto) 89.4 % (16.0-70.0) Lymphocytes (%) (Auto) 5.7 % (9.0-44.0) Monocytes (%) (Auto) 3.6 % (0.0-8.0) Eosinophils (%) (Auto) 0.6 % (0.0-4.0) Basophils (%) (Auto) 0.7 % (0.0-2.0) Neutrophils # (Auto) 19.2 TH/MM3 (1.8-7.7) Lymphocytes # (Auto) 1.2 TH/MM3 (1.0-4.8) Monocytes # (Auto) 0.8 TH/MM3 (0-0.9) Eosinophils # (Auto) 0.1 TH/MM3 (0-0.4) Basophils # (Auto) 0.1 TH/MM3 (0-0.2) CBC Comment AUTO DIFF Differential Total Cells Counted 100 Neutrophils % (Manual) 92 % (16-70) Band Neutrophils % 1 % (0-6) Lymphocytes % 5 % (9-44) Eosinophils % 2 % (0-4) Neutrophils # (Manual) 20.0 TH/MM3 (1.8-7.7) Nucleated Red Blood Cells 1 /100 WBC (0-0) Differential Comment FINAL DIFF MANUAL Platelet Estimate NORMAL (NORMAL) Platelet Morphology Comment NORMAL (NORMAL) [place] Bodies PRESENT (NONE SEEN) Acanthocytes OCC (NORMAL) Keratocytes OCC (NORMAL) Red Cell Morphology Comment (NORMAL) Blood Urea Nitrogen 31 MG/DL (7-18) 47 MG/DL (7-18) Creatinine 2.59 MG/DL (0.60-1.30) 3.52 MG/DL (0.60-1.30) Random Glucose 98 MG/DL (74-106) 79 MG/DL (74-106) Albumin 1.8 GM/DL (3.4-5.0) 1.6 GM/DL (3.4-5.0) Calcium Level 9.2 MG/DL (8.5-10.1) 9.5 MG/DL (8.5-10.1) Phosphorus Level 2.3 MG/DL (2.5-4.9) 3.3 MG/DL (2.5-4.9) Sodium Level 142 MEQ/L (136-145) 143 MEQ/L (136-145) Potassium Level 3.3 MEQ/L (3.5-5.1) 3.6 MEQ/L (3.5-5.1) Chloride Level 104 MEQ/L (98-107) 106 MEQ/L (98-107) Carbon Dioxide Level 29.1 MEQ/L (21.0-32.0) 28.1 MEQ/L (21.0-32.0) Anion Gap 9 MEQ/L (5-15) 9 MEQ/L (5-15) Estimat Glomerular Filtration Rate 24 ML/MIN (>89) 17 ML/MIN (>89) . Result Diagram: 04/22/1760404/22/17604 Microbiology Microbiology Date/Time Source Procedure Growth Status 04/20/17 18:00 Bronchial Washings Left Lower Lobe Fungal Smear - Final NO FUNGAL ELEMENTS SEEN. Resulted 04/20/17 18:00 Bronchial Washings Left Lower Lobe Fungal Culture Pending Resulted 04/20/17 18:00 Bronchial Washings Left Lower Lobe Acid Fast Stain - Final NO ACID FAST BACILLI SEEN Resulted 04/20/17 18:00 Bronchial Washings Left Lower Lobe Mycobacterial Culture Pending Resulted 04/20/17 18:00 Bronchial Washings Left Lower Lobe Gram Stain - Final Complete 04/20/17 18:00 Bronchial Washings Left Lower Lobe Bronchial Culture - Final MODERATE GROWTH NORMAL RESPIRATORY ARABELLA Complete Imaging Last 72 hours Impressions Chest X-Ray 04/22/17 0000 Signed Impressions: Service Date/Time: Saturday, April 22, 2017 11:06 - CONCLUSION: 1. Right chest tube remains present and may have been retracted slightly. No pneumothorax is visualized. 2. Volume loss at the right lung base. Willy Whitt MD Chest X-Ray 04/20/172004 Signed Impressions: Service Date/Time: Thursday, April 20, 2017 20:08 - CONCLUSION: Successful placement of pigtail chest tube with complete resolution of the right-sided tension pneumothorax. Harry Soto MD Chest X-Ray 04/20/17 0600 Signed Impressions: Service Date/Time: Thursday, April 20, 2017 04:42 - CONCLUSION: 1. Right lower lobe atelectasis versus pneumonia. There has been no significant change when compared to the prior exam. Michael Bhatt MD Chest X-Ray 04/20/17 0000 Signed Impressions: Service Date/Time: Thursday, April 20, 2017 18:07 - CONCLUSION: Large right-sided tension pneumothorax with shift of mediastinum from right to left although the mediastinum has always been slightly shifted. Findings were relayed to the floor. Nurse Amezcua was informed. Harry Soto MD Chest X-Ray 04/20/17 0000 Signed Impressions: Service Date/Time: Thursday, April 20, 2017 16:57 - CONCLUSION: Probable mucous plug on the left. Anthony Claros MD FACR . Procedures 04/17/2017: Left IJ CVL placement 04/17/2017: Orotracheal intubation 04/17/2017: Bronchoscopy 04/20/2017: Pigtail chest tube placement . Assessment and Plan Disease Oriented Problem List: (1) Hypovolemic shock (2) Coagulopathy (3) Respiratory failure (4) Epistaxis (5) ESRD (end stage renal disease) on dialysis Symptom Scale: (1) Debility 0-10 Scale: Unable to quantify (2) Pain 0-10 Scale: Unable to quantify (3) Encephalopathy 0-10 Scale: Unable to quantify Pertinent Non-Medical Issues Psychosocial: Patient and his are originally from [place]. This was a second marriage for both of them and they have now been for 40+ years. He has 4 children and 2 stepchildren; when they got just the children's ages range from 2 years to preteens. 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 Spiritual: None rastafarian; patient's refused channel opener visits Legal: Her [place] statutes, in the absence of written advanced directives healthcare proxy decision-making falls to the patient's Ethical issues impacting care: No known ethical issues impacting care. . . Important Contacts Aylin Roberto, : [phone] . Prognosis Patient is a 76-year-old male with a complex medical history including ESRD on hemodialysis. Admitted with epistaxis, coagulopathy, pneumonia and bacteremia status post cardiopulmonary arrest 2. Patient is at high risk for ongoing complications and Escherichia coli secondary to his advanced age and deconditioned status. . Code Status: No Code Plan * NO CODE * Decision-making: Per [place] statutes, in the absence of written advanced directives healthcare proxy decision-making falls to the patient's * Discussed the process of cardio pulmonary resuscitation with the patient's status post cardiac arrest 2. Patient's states she feels her has been put through enough. Patient is currently intubated but if he is extubated, either accidentally or medically, she would not want him to be reintubated. * GOALS REMAIN AGGRESSIVE * Symptom management-pain: Patient denies pain when asked. History of moderate to severe arthritic pain that significantly reduces patient's activity level. Possible contributing factors include respiratory distress, infections, intubation, immobility, bedbound status, invasiveness lines and recent chest compressions secondary to CPR. Acetaminophen and morphine are available PRN; Morphine dose increased to 2 mg every 4 hours for pain rated 6-10. Patient has received PRN morphine 2 mg IV 2 in the past 24 hours or nonverbal pain as evidenced by facial grimacing, tears and frowning Palliative care will will monitor PRN requirements and make recommendations as indicated. * Symptom management-debility: Patient has a history of declining performance status and marginal nutritional status but was making some improvement until this acute episode. Patient uses a power scooter/wheelchair to get around. It is unclear if the patient will tolerate rehabilitation at this time. * Symptom management-encephalopathy: Patient is off sedation. He is awake, eyes open. Answers yes no questions by nodding and shaking head, attempting to communicate by mouthing words - asking to be aloud go home. He follows simple commands consistently; ongoing weakness and left upper extremity. * Attempted to contact patient's via telephone. Message left on voicemail. Family has requested tentative family meeting sometime on Tuesday. Requested that the patient's contact palliative care to schedule a family meeting, awaiting return phone call. * Palliative care will continue to follow this patient throughout his hospitalization to establish trust, assist with symptom management and clarification of medical treatment goals. . Attestation To help prompt me to consider important information that might be impacting today's encounter and assessment, information from prior notes written by myself or my colleagues may have been "brought forward" into today's note. My signature on this note, however, is an attestation that I personally performed the exam, history, and/or decision-making noted today, and, unless otherwise indicated, the interactions with patient, family, and staff as well as the review of records all occurred today. I also attest that the listed assessment and stated plan reflect my best clinical judgment today based on the combination of historical information, prior notes, and today's exam/ interactions. When time spent is documented, it refers only to time spent today by the signer, or if indicated, combined time spent today by collaborating physician/nurse practitioner. . Cristy Gaxiola Apr 22, 2017 17:23
--- NOTE | 2017-04-22 18:13 | HHI.IDPN ---
Note Infectious Disease Note Patient remains on vent. No distress. Had to be put on 100% FIO2 because of desaturation on attempt to wean. Awake and alert follows commands. Gesturing. Afebrile. WBC still high. Noted to have mucous plugging. Bronch culture has no growth. Chest tube placed for pneumothorax. 76-year-old white male who was admitted to the hospital on 04/10 with epistaxis. The patient has end-stage renal disease and undergoes hemodialysis. When he was evaluated in the emergency department, he had a brief cardiopulmonary arrest and was intubated. PAST MEDICAL HISTORY: 1. Hypertension. 2. Diabetes mellitus. 3. Coronary artery disease. 4. Dyslipidemia. 5. End-stage renal disease. 6. Benign prostate hypertrophy. 7. History of left renal cell carcinoma. 8. Splenectomy. 9. Appendectomy. ALLERGIES: NO KNOWN DRUG ALLERGIES. ANTIBIOTICS: Vancomycin with dialysis. Pip/Tazo. OBJECTIVE: Vital Signs Date Time Temp Pulse Resp B/P (MAP) Pulse Ox O2 Delivery O2 Flow Rate FiO2 04/22/17 16:27 90 100 04/22/17 12:30 97 40 04/22/17 08:15 97 40 04/22/17 08:00 68 04/22/17 07:00 96 Mechanical Ventilator 40 04/22/17 04:17 92 40 04/22/17 04:00 98.3 67 16 139/65 (89) 93 04/22/17 04:00 40 04/22/17 04:00 69 04/22/17 03:35 16 04/22/17 02:40 16 04/22/17 02:00 74 04/22/17 00:00 69 04/22/17 00:00 98.7 69 16 127/58 (81) 96 04/22/17 00:00 40 04/21/17 23:41 96 40 04/21/17 22:00 69 04/21/17 20:32 94 40 04/21/17 20:00 98.7 69 16 127/58 (81) 96 04/21/17 20:00 69 04/21/17 20:00 40 04/21/17 19:00 96 Mechanical Ventilator 40 Laboratory Tests Test 04/21/17 04:50 04/22/17 06:05 White Blood Count 21.5 TH/MM3 19.3 TH/MM3 Red Blood Count 2.40 MIL/MM3 2.32 MIL/MM3 Hemoglobin 7.8 GM/DL 7.4 GM/DL Hematocrit 24.1 % 23.0 % Mean Corpuscular Volume 100.5 FL 99.3 FL Mean Corpuscular Hemoglobin 32.6 PG 32.1 PG Mean Corpuscular Hemoglobin Concent 32.4 % 32.3 % Red Cell Distribution Width 16.3 % 16.3 % Platelet Count 351 TH/MM3 347 TH/MM3 Mean Platelet Volume 8.4 FL 8.3 FL Neutrophils (%) (Auto) 89.4 % Lymphocytes (%) (Auto) 5.7 % Monocytes (%) (Auto) 3.6 % Eosinophils (%) (Auto) 0.6 % Basophils (%) (Auto) 0.7 % Neutrophils # (Auto) 19.2 TH/MM3 Lymphocytes # (Auto) 1.2 TH/MM3 Monocytes # (Auto) 0.8 TH/MM3 Eosinophils # (Auto) 0.1 TH/MM3 Basophils # (Auto) 0.1 TH/MM3 CBC Comment AUTO DIFF Differential Total Cells Counted 100 Neutrophils % (Manual) 92 % Band Neutrophils % 1 % Lymphocytes % 5 % Eosinophils % 2 % Neutrophils # (Manual) 20.0 TH/MM3 Nucleated Red Blood Cells 1 /100 WBC Differential Comment FINAL DIFF MANUAL Platelet Estimate NORMAL Platelet Morphology Comment NORMAL [place] Bodies PRESENT Acanthocytes OCC Keratocytes OCC Red Cell Morphology Comment Laboratory Tests Test 04/21/17 04:50 04/22/17 06:05 Blood Urea Nitrogen 31 MG/DL 47 MG/DL Creatinine 2.59 MG/DL 3.52 MG/DL Random Glucose 98 MG/DL 79 MG/DL Albumin 1.8 GM/DL 1.6 GM/DL Calcium Level 9.2 MG/DL 9.5 MG/DL Phosphorus Level 2.3 MG/DL 3.3 MG/DL Sodium Level 142 MEQ/L 143 MEQ/L Potassium Level 3.3 MEQ/L 3.6 MEQ/L Chloride Level 104 MEQ/L 106 MEQ/L Carbon Dioxide Level 29.1 MEQ/L 28.1 MEQ/L Anion Gap 9 MEQ/L 9 MEQ/L Estimat Glomerular Filtration Rate 24 ML/MIN 17 ML/MIN Microbiology Date/Time Source Procedure Growth Status 04/20/17 18:00 Bronchial Washings Left Lower Lobe Fungal Smear - Final NO FUNGAL ELEMENTS SEEN. Resulted 04/20/17 18:00 Bronchial Washings Left Lower Lobe Fungal Culture Pending Resulted 04/20/17 18:00 Bronchial Washings Left Lower Lobe Acid Fast Stain - Final NO ACID FAST BACILLI SEEN Resulted 04/20/17 18:00 Bronchial Washings Left Lower Lobe Mycobacterial Culture Pending Resulted 04/20/17 18:00 Bronchial Washings Left Lower Lobe Gram Stain - Final Complete 04/20/17 18:00 Bronchial Washings Left Lower Lobe Bronchial Culture - Final MODERATE GROWTH NORMAL RESPIRATORY ARABELLA Complete Microbiology Date/Time Source Procedure Growth Status 04/20/17 18:00 Bronchial Washings Left Lower Lobe Fungal Smear - Final NO FUNGAL ELEMENTS SEEN. Resulted 04/20/17 18:00 Bronchial Washings Left Lower Lobe Fungal Culture Pending Resulted 04/20/17 18:00 Bronchial Washings Left Lower Lobe Acid Fast Stain Pending Received 04/20/17 18:00 Bronchial Washings Left Lower Lobe Mycobacterial Culture Pending Received 04/20/17 18:00 Bronchial Washings Left Lower Lobe Gram Stain - Final Resulted 04/20/17 18:00 Bronchial Washings Left Lower Lobe Bronchial Culture - Preliminary LIGHT GROWTH NORMAL RESPIRATORY ARABELLA... Resulted Microbiology Date/Time Source Procedure Growth Status 04/14/17 09:38 Blood Peripheral Aerobic Blood Culture Pending Received 04/14/17 09:38 Blood Peripheral Anaerobic Blood Culture Pending Received 04/13/17 17:10 Blood Peripheral Aerobic Blood Culture - Preliminary NO GROWTH IN 1 DAY Resulted 04/13/17 17:10 Blood Peripheral Anaerobic Blood Culture - Preliminary NO GROWTH IN 1 DAY Resulted 04/11/17 20:15 Blood Peripheral Aerobic Blood Culture - Final Staph Sp Coagulase Negative Complete 04/11/17 20:15 Anaerobic Blood Culture - Final Staphylococcus Epidermidis Complete 04/11/17 20:10 Blood Peripheral Aerobic Blood Culture - Final Staph Sp Coagulase Negative Complete 04/11/17 20:10 Anaerobic Blood Culture - Final Staphylococcus Epidermidis Complete 04/11/17 20:10 Sputum Endotracheal Gram Stain - Final Complete 04/11/17 20:10 Sputum Endotracheal Sputum Culture - Final HEAVY GROWTH NORMAL RESPIRATORY ARABELLA Complete 04/12/17 05:58 Urine Catheterized Urine Urine Culture - Final NO GROWTH IN 48 HOURS. Complete IMAGING: Chest X-Ray 04/22/17 0000 Signed Impressions: Service Date/Time: Saturday, April 22, 2017 11:06 - CONCLUSION: 1. Right chest tube remains present and may have been retracted slightly. No pneumothorax is visualized. 2. Volume loss at the right lung base. Willy Whitt MD Chest X-Ray 04/20/172004 Signed Impressions: Service Date/Time: Thursday, April 20, 2017 20:08 - CONCLUSION: Successful placement of pigtail chest tube with complete resolution of the right-sided tension pneumothorax. Harry Soto MD Chest X-Ray 04/20/17 0600 Signed Impressions: Service Date/Time: Thursday, April 20, 2017 04:42 - CONCLUSION: 1. Right lower lobe atelectasis versus pneumonia. There has been no significant change when compared to the prior exam. Michael Bhatt MD Chest X-Ray 04/20/17 0000 Signed Impressions: Service Date/Time: Thursday, April 20, 2017 18:07 - CONCLUSION: Large right-sided tension pneumothorax with shift of mediastinum from right to left although the mediastinum has always been slightly shifted. Findings were relayed to the floor. Nurse Amezcua was informed. Harry Soto MD Chest X-Ray 04/20/17 0000 Signed Impressions: Service Date/Time: Thursday, April 20, 2017 16:57 - CONCLUSION: Probable mucous plug on the left. Anthony Claros MD FACR Lower Extremity Ultrasound 04/18/17 06 Signed Impressions: Service Date/Time: Tuesday, April 18, 2017 08:08 - CONCLUSION: 1. No sonographic evidence for lower extremity DVT. Cristobal Simpson MD Chest X-Ray 04/18/17 06 Signed Impressions: Service Date/Time: Tuesday, April 18, 2017 04:17 - CONCLUSION: 1. Right lower lobe atelectasis versus pneumonia. There has been no significant change when compared to the prior exam. Michael Bhatt MD Abdomen/Pelvis CT 04/18/17 0000 Signed Impressions: Service Date/Time: Tuesday, April 18, 2017 13:08 - CONCLUSION: Probable impaction with large bolus of stool in the rectum Scattered stool throughout the remainder of the colon Nasogastric tube across the GE junction There is no intra-abdominal abscess. Anthony Claros MD FACR Chest X-Ray 04/17/17 0948 Signed Impressions: Service Date/Time: Monday, April 17, 2017 09:59 - CONCLUSION: 1. Worsening right basilar patchiness consistent with possible worsening pneumonia and/or atelectasis. Clinical correlation is recommended. 2. Elevation of the right hemidiaphragm. 3. Endotracheal tube and left internal jugular central line are in good positions. 4. Stable cardiomegaly. 5. Degenerative changes and scoliosis of the thoracolumbar spine. Winston Grande MD Chest X-Ray 04/17/17 0000 Signed Impressions: Service Date/Time: Monday, April 17, 2017 10:58 - CONCLUSION: 1. There is no evidence of pneumothorax. 2. Worsening left lower lobe atelectasis versus pneumonia Michael Bhatt MD Chest X-Ray 04/17/17 0000 Signed Impressions: Service Date/Time: Monday, April 17, 2017 08:38 - CONCLUSION: No significant change compared to 04/16/17. Winston Grande MD Brain MRI 04/17/17 0000 Signed Impressions: Service Date/Time: Monday, April 17, 2017 16:21 - CONCLUSION: 1. Possible normal pressure hydrocephalus. Correlation with clinical findings is necessary. 2. No evidence of acute intracranial pathology. No masses are identified. Michael Bhatt MD Chest X-Ray 04/16/17 0600 Signed Impressions: Service Date/Time: Sunday, April 16, 2017 04:27 - CONCLUSION: Persistent bilateral lower lung zone consolidation versus atelectasis. Increase in aeration of the right lung base. Vin Solis MD PHYSICAL EXAMINATION: GENERAL: No acute distress. Responsive. HEENT: No icterus. mucosa slightly dry. NECK: No adenopathy or swelling. LUNGS: Decreased breath sounds. HEART: Irregular. S1 and S2. No audible murmur. ABDOMEN: Bowel sounds present, soft, no tenderness. EXTREMITIES: No clubbing, cyanosis or edema. AV fistula at the right upper extremity appears intact. NEUROLOGIC: sedated. PSYCHIATRIC: Calm. IMPRESSION: 1. Coagulase-negative Staph bacteremia. Patient developed fever and leukocytosis and had episode of cardiopulmonary arrest. 2. End-stage renal disease on hemodialysis. 3. Thrombus in distal cephalic LUE. 4. Abnormal CXR ? pneumonia. 5. Respiratory failure - mucous plug. Probable aspiration. 6. Leukocytosis. persistent. ? infection vs reactive. RECOMMENDATIONS: 1. Continue Vancomycin with dialysis until 04/25/17. 2. Continue Zosyn for pulmonary coverage. 3. Follow bronch culture. 4. Monitor white blood cell count. 5. Monitor clinical status. 6. Weaning per CCM. Trell Simon MD Apr 22, 2017 18:13
[2017-04-22] MEDS: ATORVASTATIN 10 MG TAB PO SCH (20:13)
--- NOTE | 2017-04-22 20:45 | MB ---
cc: DEVANTE SALGADO DATE OF CONSULTATION 04/22/17 REASON FOR CONSULTATION Respiratory failure and COPD. HISTORY OF PRESENT ILLNESS This is a 76 year old white male with a history of CHF and history of atrial fibrillation who was brought to the emergency room due to persistent nosebleed and a markedly elevated INR. The patient has a history of end-stage renal disease on dialysis. He received Kcentra for reversal of Coumadin toxicity and was hypotensive and suffered a cardiopulmonary arrest while in the [facility]. He was intubated, placed on ventilator support. Following resuscitation, the patient was transferred to [facility] and has been on pressors and on ventilator support. He also was seen by Dr. Maria, his merchant mariner, and has been on maintenance hemodialysis. The patient did improve following resuscitation with fluids, pressors and antibiotics and has now been weaned to C-PAP. The INR has been corrected. He was initially extubated on 04/12/17, but subsequently had to be reintubated and kept sedated. The patient also developed a pneumothorax and had aspirated and has been on multiple antibiotics for aspiration pneumonia and respiratory failure. He had to have a chest tube placed on the right side of the chest for pneumothorax and now the recent chest x-ray shows resolution of the pneumothorax. The patient is awake and cooperative and responds appropriately. The chest x-ray done earlier today showed volume loss at the right base and a chest tube in place. PAST MEDICAL HISTORY 1. End stage renal disease on hemodialysis every other day 2. History of hypertension, 3. History of diabetes mellitus, 4. History of coronary artery disease 5. Dyslipidemia. 6. Peripheral vascular disease 7. Hyperphosphatemia 8. Previous left renal cell carcinoma status post cryoablation 9. Prostatic hypertrophy. 10. Appendectomy 11. Splenectomy 12. Placement of a peritoneal dialysis catheter. 13. Rotator cuff tear on the left 14. History of gastritis. MEDICATIONS 1. Gabapentin 100 mg t.i.d., 2. Lasix 40 mg p.o. b.i.d. 3. Hydralazine 75 mg t.i.d., 4. Flomax 0.4 mg daily 5. Proscar 5 mg a day, 6. Lipitor 10 mg at bedtime FAMILY HISTORY Noncontributory HABITS The patient has history of smoking remotely for five years. No significant alcohol use. REVIEW OF SYSTEMS Patient is on ventilator. PHYSICAL EXAMINATION GENERAL: This is an elderly man who is intubated, responsive and cooperative. VITAL SIGNS: Blood pressure 130/60, pulse is 75, respirations 18, temperature 98.5. HEENT: Head normocephalic. Pupils are reactive. Tongue is moist. Throat has secretions. NECK: Supple. No bruits or thyroid enlargement. CHEST: Distant breath sounds with coarse wheezes bilaterally, more on the right side. HEART: The heart sounds are irregular with a systolic ejection murmur 3/6 to the left sternal border. No gallop. ABDOMEN: Soft, nontender. No organomegaly. Bowel sounds are active. EXTREMITIES: Diminished peripheral pulses. No calf tenderness. He is moving his extremities with 1+ reflexes. Babinski is negative. RECTAL: Exam is deferred. SKIN: No lesions observed. IMPRESSION 1. Ventilator dependent respiratory failure. 2. Right pneumothorax resolved 3. Atrial fibrillation and CHF 4. End-stage renal disease on dialysis. 5. Coagulopathy with Coumadin 6. Anemia. PLAN The patient has been placed on nebulized DuoNeb solution q.i.d. He is on ventilator support FIO2 at 40% and will be weaned to C-PAP as tolerated. Blood gases to be done. We will try to reduce sedation. Follow up chest x-rays to be done to evaluate the pneumothorax. If he has resolving pneumonia, attempts will be made to discontinue the chest tube as well. Thank you, Dr. Cantu, for this consultation. MD SHERICE Ignacio/ /7:13 PM /8:24 PM
[2017-04-23] VITALS (18 sets, daily range): BP systolic 114–140; BP diastolic 59–65; PULSE 64–77; RESP 10–16; TEMP 97.9–99.4; O2SAT 94–98
[2017-04-23] MEDS: INSULIN NovoLIN REGULAR SUPPLEMENTAL SCALE SQ SCH ×4 (00:15→18:00)
[2017-04-23] MEDS: RESP: SODIUM CHLORIDE 3% 4 ML NEB NEB SCH ×4 (03:25→20:13)
[2017-04-23] MEDS: RESP: ALBUTEROL 2.5 MG/IPRATROPIUM 0.5 MG NEB (SCH) NEB ×4 (03:25→20:13)
[2017-04-23] MEDS: CHLORHEXIDINE GLUCONATE 2 % 1 PACK (2 CLOTHS) TOP SCH (04:00)
[2017-04-23] MEDS: guaiFENesin SOLUTION 200 MG/10 ML CUP PO SCH ×3 (05:06→22:21)
[2017-04-23] MEDS: ARTIFICIAL TEARS OPTH SOLN 15 ML BTL EACH EYE SCH ×3 (05:06→22:22)
--- NOTE | 2017-04-23 05:36 | RADRPT ---
EXAM DATE/TIME: 04/23/2017 04:38 [facility] COMPARISON: CHEST SINGLE AP, April 22, 2017, 11:06. INDICATIONS : Follow up pneumothorax. MEDICAL HISTORY : Hypertension. Stage 3 renal disease. SURGICAL HISTORY : None. ENCOUNTER: Subsequent ACUITY: 2 weeks PAIN SCORE: Non-responsive. LOCATION: Bilateral chest FINDINGS: The support devices remain in place. There is a small right-sided chest tube in place. There is no pn eumothorax. Lung juárez remain grossly clear. The heart size is stable. No significant change compare d to the prior exam. CONCLUSION: No evidence of pneumothorax. Warren Pelaez MD on April 23, 2017 at 5:34 Board Certified Radiologist. This report was verified electronically.
[2017-04-23 06:44] LABS: HEMATOCRIT 24.9 % (39.0-51.0); HEMOGLOBIN 7.8 GM/DL (13.0-17.0); MEAN CELL VOLUME 100.6 FL (80.0-100.0); MEAN CORPUSCULAR HEMOGLOBIN 31.7 PG (27.0-34.0); MEAN CORPUSCULAR HGB CONC 31.6 % (32.0-36.0); MEAN PLATELET VOLUME 8.6 FL (7.0-11.0); PLATELET COUNT 406 TH/MM3 (150-450); RED BLOOD COUNT 2.47 MIL/MM3 (4.50-5.90); RED CELL DISTRIBUTION WIDTH 17.2 % (11.6-17.2)
[2017-04-23 07:20] LABS: ALBUMIN 1.9 GM/DL (3.4-5.0); BICARBONATE 32.8 MEQ/L (21.0-32.0); CALCIUM 9.6 MG/DL (8.5-10.1); CREATININE 2.88 MG/DL (0.60-1.30); PHOSPHORUS 3.7 MG/DL (2.5-4.9)
[2017-04-23] MEDS: DOCUSATE SODIUM 100 MG/10 ML UDC PO SCH ×2 (07:37→21:00)
[2017-04-23] MEDS: hydrALAZINE HCL 25 MG TAB PO SCH ×3 (07:37→17:30)
[2017-04-23] MEDS: LANSOPRAZOLE SOLUTAB 30 MG TAB NG SCH (07:37)
[2017-04-23] MEDS: SEVELAMER CARBONATE 800 MG TAB PO SCH ×3 (07:37→17:30)
[2017-04-23] MEDS: CHLORHEXIDINE 0.12% (ORAL KIT) 15 ML CUP MT SCH ×2 (07:37→22:22)
[2017-04-23] MEDS: SODIUM CHLORIDE 0.9% FLUSH 10 ML FLUSH IV FLUSH SCH ×2 (07:37)
[2017-04-23] MEDS: FINASTERIDE 5 MG TAB PO SCH (07:38)
[2017-04-23] MEDS: SENNOSIDES SYRUP 8.8 MG/5 ML CUP PO SCH ×2 (07:38→21:00)
[2017-04-23] MEDS: TAMSULOSIN HCL 0.4 MG CAP PO SCH (07:38)
[2017-04-23] MEDS: MORPHINE SULFATE 2 MG/ML INJ IV PUSH PRN (07:39)
[2017-04-23] MEDS: PIPERACIL-TAZO 2.25 GM PREMIX 50 ML IV SCH ×2 (07:42→22:23)
[2017-04-23] MEDS: INSULIN DETEMIR 100 UNITS/ML VIAL SQ SCH ×2 (09:00→22:22)
[2017-04-23] MEDS: fentaNYL DRIP 250 ML IV PRN (09:46)
--- NOTE | 2017-04-23 13:32 | HHI.CCPN ---
Subjective Remarks/Hospital Course 76 y/o man developed a persistent nose bleed this morning after dialysis. In ED his INR was > 13 and he received Kcentra for warfarin reversal (permanent a-fib) . Due to airway problems from blood and hypovolemia he sustained a brief cardiopulmonary arrest in the [facility] requiring intubation and ventilation. He was aggressively resuscitated by the staff at [facility] and transferred to [facility] for ongoing resuscitation. He arrived to the [facility] with BP 52/25 and pulse rate 44. Two units of type specific blood were administered and levophed initiated at 20 mics/min. A central line was placed revealing CVP < 5 while on positive pressure ventilation. Resuscitation is continuing. 04/11/17: Currently epistaxis is controlled. Patient is off Levophed, hypertensive. PRN hydralazine added. Patient continues to have coffee-ground output from the NG tube large amount. INR is 2.8 have added FFP 2 units and vitamin K stat. Repeat CBC and INR stat 04/12/17: Remains intubated but wakes up easily follows commands. Left upper extremity weaker. INR was 3.3 yesterday received 2 units FFP and vitamin K repeat INR pending. No further epistaxis and NGT output minimal 04/13/17: Extubated yesterday tolerating well. Blood cultures 4 out of 4 bottles positive for coag negative staph. ID consulted 2-D echo ordered. No further epistaxis reported. refused EGD 04/14/17: Protecting airway. 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 Intermittent confusion, but on my exam AOx3 04/15/17: More lethargic today, but wakes up and follows commands. Received morphine 2 mg at 8 AM. Getting hemodialysis today. Will reduce Morphine from 2 to 1 mg. Also WBC count is elevated, to 20.7 04/16/17: Patient remains lethargic encephalopathy, but wakes up remains oriented to person and place. WBC count slightly further elevated to 21.6. Currently on vancomycin and Zosyn. Azithromycin added by infectious diseases have changed to IV. Repeat swallow eval 04/17: Patient went to acute respiratory arrest likely secondary to hypoxia etiology likely aspiration. Please see CPR note. Copious amounts of brownish secretions for ET tube and central line placed emergently. Attempts to contact Aylin Avila [phone] unsuccessful 04/18: Afebrile. FiO2 down to 40%. Continues with some bloody secretions. ET tube. Tolerating tube feeds. Positive BM. requesting palliative care consultation. 04/19: Tolerated PSV trial yesterday. -3500 cc with hemodialysis. Afebrile. One bowel movement. CT abdomen/pelvis revealed large stool impaction rectum. 04/20: Currently afebrile. Hemodialysis scheduled for today. We will attempt PSV trial afterwards. Positive BM. FiO2 60% overnight currently at 40%. 04/21: Yesterday, mucus plugging left-sided. Bronchoscopy. Pneumothorax right sided post bronchoscopy. Chest tube placed. Currently on 40% FiO2. Looks much improved. Complaining of constipation. Subjective 04/22: Afebrile. Currently undergoing hemodialysis. Remains intermittently apneic on PSV trials. Arousable and follow commands. Currently down to 40% FiO2. Appears comfortable. 04/23: Pain control acceptable. Waiting for family to gather for extubation. He is grimacing and I will start him on a fentanyl gtt, supplement with morphine. Objective Vital Signs Date Time Temp Pulse Resp B/P (MAP) Pulse Ox O2 Delivery O2 Flow Rate FiO2 04/23/17 12:28 95 45 04/23/17 10:00 71 04/23/17 08:00 98.1 13 136/65 (88) 04/23/17 07:00 Mechanical Ventilator Intake and Output 04/23/17 04/23/17 04/24/17 08:00 16:00 00:00 Intake Total 650 ml Output Total 50 ml Balance 600 ml Result Diagram: 04/23/17 0600 04/23/17 0600 Other Results Microbiology Date/Time Source Procedure Growth Status 04/20/17 18:00 Bronchial Washings Left Lower Lobe Gram Stain - Final Complete 04/20/17 18:00 Bronchial Washings Left Lower Lobe Bronchial Culture - Final MODERATE GROWTH NORMAL RESPIRATORY ARABELLA Complete Laboratory Tests Test 04/22/17 21:15 04/22/17 23:15 Blood Gas Puncture Site LT RADIAL RT RADIAL Blood Gas Patient Temperature 98.6 98.6 Blood Gas HCO3 32 mmol/L (22-26) 33 mmol/L (22-26) Blood Gas Base Excess 8.7 mmol/L (-2-2) 8.7 mmol/L (-2-2) Blood Gas Oxygen Saturation 97 % (90-100) 97 % (90-100) Arterial Blood pH 7.55 (7.380-7.420) 7.48 (7.380-7.420) Arterial Blood Partial Pressure CO2 36 mmHg (38-42) 45 mmHg (38-42) Arterial Blood Partial Pressure O2 129 mmHg (61-120) 221 mmHg (61-120) Arterial Blood Oxygen Content 11.0 Vol % (12.0-20.0) 10.6 Vol % (12.0-20.0) Arterial Blood Carboxyhemoglobin 1.5 % (0-4) 1.4 % (0-4) Arterial Blood Methemoglobin 1.0 % (0-2) 1.0 % (0-2) Blood Gas Hemoglobin 7.9 G/DL (12.0-16.0) 7.4 G/DL (12.0-16.0) Oxygen Delivery Device VENTILATOR VENTILATOR Blood Gas Ventilator Setting PRVC/AC Blood Gas Inspired Oxygen 60 % 60 % Imaging Last Impressions Chest X-Ray 04/22/17 0000 Signed Impressions: Service Date/Time: Saturday, April 22, 2017 11:06 - CONCLUSION: 1. Right chest tube remains present and may have been retracted slightly. No pneumothorax is visualized. 2. Volume loss at the right lung base. Willy Whitt MD Lower Extremity Ultrasound 04/18/17 0600 Signed Impressions: Service Date/Time: Tuesday, April 18, 2017 08:08 - CONCLUSION: 1. No sonographic evidence for lower extremity DVT. Cristobal Simpson MD Abdomen/Pelvis CT 04/18/17 0000 Signed Impressions: Service Date/Time: Tuesday, April 18, 2017 13:08 - CONCLUSION: Probable impaction with large bolus of stool in the rectum Scattered stool throughout the remainder of the colon Nasogastric tube across the GE junction There is no intra-abdominal abscess. Atnhony Claros MD FACR Brain MRI 04/17/17 0000 Signed Impressions: Service Date/Time: Monday, April 17, 2017 16:21 - CONCLUSION: 1. Possible normal pressure hydrocephalus. Correlation with clinical findings is necessary. 2. No evidence of acute intracranial pathology. No masses are identified. Michael Bhatt MD Upper Extremity Ultrasound 04/14/17 0000 Signed Impressions: Service Date/Time: April 10:28 - CONCLUSION: Thrombus is identified within distal cephalic vein. Scottie Donovan MD Head CT 04/12/17 0000 Signed Impressions: Service Date/Time: Wednesday, April 12, 2017 16:08 - CONCLUSION: Chronic changes without hemorrhage mass effect. Scottie Donovan MD Objective Remarks Gen: 76-year-old male, critically ill currently resting in bed orotracheally intubated ENT: No epistaxis. Oropharynx with dried secretions. No oropharyngeal edema. Neck: Supple, no JVD. Left IJ is clean dry and intact Lungs: Chest bilaterally. Coarse rhonchi. No wheezing. Right pigtail catheter intact -30 cc clear yellow overnight -40 cm H2O Heart: Irreg Irreg, 3/6 THIERRY, LSB. Neck veins not distended. Abdomen: Nondistended, quiet. No guarding. Multiple well-healed surgical scars Extremities: Cool and pale. Neuro: Radial nerves II through XII grossly intact. Moves all 4 extremity spontaneously/withdraws to noxious stimuli. Date of Insertion: Apr 17, 2017 Line: Central Venous Catheter Location: Internal, Jugular A/P Assessment and Plan Neuro/Psych: Acute toxic metabolic encephalopathy secondary to sepsis Bilateral cataracts [place] Currently off all sedation. Goal of RASS -0 Will hold gabapentin 100 mg 3 times a day/home medication for neuropathy. Check gabapentin level Metabolic encephalopathy most likely secondary to sepsis, possibly medication induced CT head on admission revealed no acute intracranial findings. Chronic changes Weakness of left upper extremity most likely related to arthritis and rotator cuff tendinitis- MRI brain 04/17 revealed possible normal pressure hydrocephalus. Asymptomatic from this aspect.. Respiratory Acute hypoxic respiratory failure likely secondary to aspiration Recurrent mucus plugging Right pneumothorax PRVC 15/550/1.3/5/40 Ventilator bundle Albuterol/ipratropium aerosols every 6 hours with albuterol aerosols every 2 hours. Dyspnea Hypertonic saline aerosols every 6 hours to thin secretions Guaifenesin 400 mg every 8 hours mucolytic Spontaneous breathing trials when clinically indicated Follow-up chest x-ray revealed likely mucus plugging right main bronchus below the right upper lobe. Bronchoscopy performed revealed externally frontal mucosa. Thick brown/bloody Mucous plugging right bronchus distal to right upper lobe. - Extubated 04/12 protecting airway - reintubated 04/17 Right pigtail Chest tube -40 cm H2O with 30 cc overnight. CV PEA secondary to respiratory arrest secondary to aspiration resolved Atrial fibrillation Hypotension Dyslipidemia Currently off all vasopressors 2-D echocardiogram revealed EF 60-65%. Right atrium mildly dilated. Moderate MR/TR. PAP 50-60 mmHg Troponin peaked at 0.39. Currently 0.36 Remains in atrial fibrillation/flutter rates between 40 and 80 Currently on atorvastatin 10 mg daily/40 mg daily at home for dyslipidemia Discontinue furosemide 20 mg twice a day. No urine output 6 days Currently hydralazine 75 mg every 8 hours. GI Gastroesophageal reflux disease History of splenectomy Hypoalbuminemia Continue tube feeds with Nepro @ 45 cc an hour per nutrition's recommendations Lansoprazole 30 mg daily -Docusate sodium twice a day/senna twice daily for bowel regimen. BPH End-stage renal disease - hemodialysis Tuesday/Tuesday/Tuesday - Monitor UO. ESRD on HD, getting hemodialysis today - Renal - Dr. Maria Continue tamsulosin 0.4 mg daily and finasteride 5 mill grams daily. Unable to crush down NG tube currently No He. Bladder scan no urine Heme Epistaxis-resolved - Dr. Stewart followed Warfarin coagulopathy/toxicity - resolved Warfarin coagulopathy resolved post- Kcentra and DDAVP and 2U FFP and 10 mg vitamin K 04/11 Left cephalic vein superficial thrombosis Leukocytosis Normocytic anemia - admission with acute blood loss anemia Monitor CBC daily. Follow trends Currently with superficial thrombosis/no DVT prophylaxis or resumption of warfarin due to high risk of bleeding Follow-up on coags were elevated at 2.6 his Hernandez received vitamin K 10 mg IV and FFP 2 units. Recheck in a.m. ID: Staph epi bacteremia - 4 out of 4 bottles staph epi bacteremia-source probably dialysis access. Repeat blood culture 04/13 negative - 2-D echo- no vegetation. ID consult appreciated - Continue IV vancomycin, and piperacillin/tazobactam for pulmonary coverage - Repeat sputum culture FEN: Hypopotassemia Check PTH - elevated at 325 and calcitriol levels pending. Vitamin D levels 25 normal. Sevelamer 800 mg 3 times a day for hyperphosphatemia - switch Fosrenol for phosphate binder when medically indicated Replace electrolytes as clinically indicated Lines - Left SCV CVL 04/10-DCd? - Left IJ CVL 04/17 Overall impression: Ventilator dependent respiratory failure in debilitated elderly man. Apneic episodes even when not receiving analgesia. Appears in pain today, q4h morphine not adequate. Marcos Gan MD Apr 23, 2017 13:32
--- NOTE | 2017-04-23 15:09 | RADRPT ---
EXAM DATE/TIME: 04/23/2017 14:24 [facility] COMPARISON: CHEST SINGLE AP, April 23, 2017, 4:38. INDICATIONS : Shortness of breath MEDICAL HISTORY : Hypertension. Stage 3 renal disease SURGICAL HISTORY : None. ENCOUNTER: Subsequent ACUITY: 2 weeks PAIN SCORE: Non-responsive. LOCATION: Bilateral chest FINDINGS: 2 AP semierect views of the chest were obtained and demonstrate small bore right-sided chest tube in place with small right basilar pneumothorax. There is hazy consolidation in both lower lobes. The hea rt size is mildly enlarged. A nasogastric tube is again seen coursing into the stomach. The endotrach eal tube remains in place with the tip approximately 4 cm above the reilly. Left internal jugular zuri tral venous line remains in place. There is mild hazy opacity in the perihilar regions. There may be mild blunting of the left costophrenic angle. CONCLUSION: 1. Small right basilar pneumothorax now identified. The small bore right-sided chest tube remains in place. Hazy opacity again noted in both lung bases. 2. Cardiomegaly. 3. Apparent small left effusion. Ugo Asher MD on April 23, 2017 at 15:04 Board Certified Radiologist. This report was verified electronically.
--- NOTE | 2017-04-23 16:02 | HHI.PR ---
Subjective Remarks Patient remains intubated, on no sedation. Afebrile. Objective Vital Signs Vital Signs Date Time Temp Pulse Resp B/P (MAP) Pulse Ox O2 Delivery O2 Flow Rate FiO2 04/23/17 15:07 94 50 04/23/17 15:00 100 04/23/17 14:00 68 04/23/17 12:28 95 45 04/23/17 12:00 45 04/23/17 12:00 70 04/23/17 12:00 98.3 70 11 138/62 (87) 94 04/23/17 10:15 96 45 04/23/17 10:00 71 04/23/17 09:15 94 45 04/23/17 09:15 45 04/23/17 09:11 94 45 04/23/17 08:00 45 04/23/17 08:00 77 04/23/17 08:00 98.1 70 13 136/65 (88) 96 04/23/17 07:00 Mechanical Ventilator 45 04/23/17 04:12 96 45 04/23/17 04:00 97.9 74 16 140/64 (89) 96 04/23/17 04:00 100 04/23/17 00:36 96 50 04/23/17 00:00 99.4 76 12 114/59 (77) 96 04/23/17 00:00 100 04/22/17 23:23 11 04/22/17 22:33 96 60 04/22/17 22:00 90 04/22/17 20:53 92 60 04/22/17 20:00 100 04/22/17 20:00 99.7 90 18 122/58 (79) 96 04/22/17 20:00 90 04/22/17 19:47 Mechanical Ventilator 100 04/22/17 18:00 80 04/22/17 16:27 90 100 04/22/17 16:00 98.7 80 18 140/65 (90) 96 04/22/17 16:00 80 04/22/17 16:00 40 I/O 04/22/17 04/22/17 04/22/17 04/23/17 04/23/17 04/23/17 07:00 15:00 23:00 07:00 15:00 23:00 Intake Total 250 ml 816 ml 650 ml Output Total 0 ml 3000.0 ml 300 ml 50 ml Balance 0 ml -2750.0 ml 516 ml 600 ml IV Total 250 ml 173 ml Tube Feeding 523 ml 500 ml Other 120 ml 150 ml Output Urine Total 0 ml Tube Feeding Residual Discard 0 ml 0 ml 0 ml Chest Tube Drainage Total 300 ml 50 ml Hemodialysis 3000 ml # Bowel Movements 1 0 Result Diagram: 04/23/1759904/23/17599 Other Results Last Impressions Chest X-Ray 04/23/17599 Signed Impressions: Service Date/Time: Sunday, April 23, 2017 04:38 - CONCLUSION: No evidence of pneumothorax. Warren Pelaez MD Lower Extremity Ultrasound 04/18/17 06 Signed Impressions: Service Date/Time: Tuesday, April 18, 2017 08:08 - CONCLUSION: 1. No sonographic evidence for lower extremity DVT. Cristobal Simpson MD Abdomen/Pelvis CT 04/18/17 0000 Signed Impressions: Service Date/Time: Tuesday, April 18, 2017 13:08 - CONCLUSION: Probable impaction with large bolus of stool in the rectum Scattered stool throughout the remainder of the colon Nasogastric tube across the GE junction There is no intra-abdominal abscess. Anthony Claros MD FACR Brain MRI 04/17/17 0000 Signed Impressions: Service Date/Time: Monday, April 17, 2017 16:21 - CONCLUSION: 1. Possible normal pressure hydrocephalus. Correlation with clinical findings is necessary. 2. No evidence of acute intracranial pathology. No masses are identified. Michael Bhatt MD Upper Extremity Ultrasound 04/14/17 0000 Signed Impressions: Service Date/Time: April 10:28 - CONCLUSION: Thrombus is identified within distal cephalic vein. Scottie Donovan MD Head CT 04/12/17 0000 Signed Impressions: Service Date/Time: Wednesday, April 12, 2017 16:08 - CONCLUSION: Chronic changes without hemorrhage mass effect. Scottie Donovan MD Objective Remarks GENERAL: Patient is 76 yo intubated and sedated SKIN: Warm and dry. HEAD: Normocephalic. EYES: No scleral icterus. No injection or drainage. NECK: Supple, trachea midline. No JVD or lymphadenopathy. CARDIOVASCULAR: Regular rate and rhythm without murmurs, gallops, or rubs. RESPIRATORY: Breath sounds equal bilaterally. No accessory muscle use. GASTROINTESTINAL: Abdomen soft, non-tender, nondistended. MUSCULOSKELETAL: No cyanosis, or edema. Neuro: intubated A/P Assessment and Plan 1. VDRF 2. Small right pneumothorax 3. Atrial fibrillation and CHF 4. End-stage renal disease on dialysis. 5. s/p PEA arrest 6. Anemia. PLAN Continue with vent support keep sat >92% Bronchodilators, ICU vent bundle. SBT daily as nannette. CXR this afternoon showed small right basilar PTX. CT is in place(monitor CT drainage) Continue with abx ( Vanco, Zosyn)monitor for signs of infections ( fever, WBC) s/p bronch 04/20. Check CXR in am Monitor renal function, HD per renal. On Epogen with HD GI/DVT prophylaxis. Continue treatment plan Guy Martinez MD Apr 23, 2017 16:02
--- NOTE | 2017-04-23 16:27 | HHI.PR ---
Subjective Remarks I had a discussion with the patient's in the room. She indicated to me that she has decided to proceed with comfort measures only with discontinuance of dialysis. Patient has shown failure to thrive over the last several months with occasional improvement but currently given his multiple comorbidities and severe debilitation comfort measures would appear to be appropriate in my opinion as the chances of meaningful recovery at this point in time appear to be quite bleak. Dialysis will be discontinued per her wishes. Patient is essentially terminal at this point in time. I will sign off. Objective Vital Signs Date Time Temp Pulse Resp B/P (MAP) Pulse Ox O2 Delivery O2 Flow Rate FiO2 04/23/17 15:07 94 50 04/23/17 15:00 100 04/23/17 14:00 68 04/23/17 12:28 95 45 04/23/17 12:00 45 04/23/17 12:00 70 04/23/17 12:00 98.3 70 11 138/62 (87) 94 04/23/17 10:15 96 45 04/23/17 10:00 71 04/23/17 09:15 94 45 04/23/17 09:15 45 04/23/17 09:11 94 45 04/23/17 08:00 45 04/23/17 08:00 77 04/23/17 08:00 98.1 70 13 136/65 (88) 96 04/23/17 07:00 Mechanical Ventilator 45 04/23/17 04:12 96 45 04/23/17 04:00 97.9 74 16 140/64 (89) 96 04/23/17 04:00 100 04/23/17 00:36 96 50 04/23/17 00:00 99.4 76 12 114/59 (77) 96 04/23/17 00:00 100 04/22/17 23:23 11 04/22/17 22:33 96 60 04/22/17 22:00 90 04/22/17 20:53 92 60 04/22/17 20:00 100 04/22/17 20:00 99.7 90 18 122/58 (79) 96 04/22/17 20:00 90 04/22/17 19:47 Mechanical Ventilator 100 04/22/17 18:00 80 04/22/17 16:27 90 100 I/O 1/03/2804/22/17 04/22/17 04/23/17 04/23/17 04/23/17 07:00 15:00 23:00 07:00 15:00 23:00 Intake Total 250 ml 816 ml 650 ml 50 ml Output Total 0 ml 3000.0 ml 300 ml 50 ml Balance 0 ml -2750.0 ml 516 ml 600 ml 50 ml IV Total 250 ml 173 ml 50 ml Tube Feeding 523 ml 500 ml Other 120 ml 150 ml Output Urine Total 0 ml Tube Feeding Residual Discard 0 ml 0 ml 0 ml Chest Tube Drainage Total 300 ml 50 ml Hemodialysis 3000 ml # Bowel Movements 1 0 Result Diagram: 04/23/17 0600 04/23/17 0600 Danita Maria MD Apr 23, 2017 16:27
[2017-04-23] MEDS: ATORVASTATIN 10 MG TAB PO SCH (22:22)
[2017-04-24] VITALS (14 sets, daily range): BP systolic 105–132; BP diastolic 53–61; PULSE 61–77; RESP 10–17; TEMP 98.2–98.6; O2SAT 93–98
[2017-04-24] MEDS: INSULIN NovoLIN REGULAR SUPPLEMENTAL SCALE SQ SCH ×3 (01:12→12:00)
[2017-04-24] MEDS: RESP: ALBUTEROL 2.5 MG/IPRATROPIUM 0.5 MG NEB (SCH) NEB ×2 (03:28→07:45)
[2017-04-24] MEDS: RESP: SODIUM CHLORIDE 3% 4 ML NEB NEB SCH ×2 (03:28→07:46)
[2017-04-24] MEDS: ARTIFICIAL TEARS OPTH SOLN 15 ML BTL EACH EYE SCH ×2 (05:22→14:00)
[2017-04-24] MEDS: guaiFENesin SOLUTION 200 MG/10 ML CUP PO SCH ×2 (05:22→14:00)
--- NOTE | 2017-04-24 05:51 | RADRPT ---
EXAM DATE/TIME: 04/24/2017 04:04 [facility] COMPARISON: CHEST SINGLE AP, April 23, 2017, 14:24. INDICATIONS : Respiratory failure. MEDICAL HISTORY : Hypertension. Stage 3 renal disease SURGICAL HISTORY : None. ENCOUNTER: Subsequent ACUITY: 2 weeks PAIN SCORE: Non-responsive. LOCATION: Bilateral chest FINDINGS: The support devices remain in place. Small right-sided chest tube remains in place. Tiny right pneumo thorax in the right costophrenic angle. No significant change.. There is atelectasis within infiltrat e in the right lung base. Heart size is enlarged but stable. Left lung remains grossly clear. The bon y structures are stable. CONCLUSION: No significant interval change. Tiny pneumothorax in the right costophrenic angle Warren Pelaez MD on April 24, 2017 at 5:46 Board Certified Radiologist. This report was verified electronically.
[2017-04-24] MEDS: fentaNYL DRIP 250 ML IV PRN (06:50)
[2017-04-24] MEDS: SEVELAMER CARBONATE 800 MG TAB PO SCH ×2 (08:00→12:00)
[2017-04-24] MEDS: CHLORHEXIDINE 0.12% (ORAL KIT) 15 ML CUP MT SCH (08:25)
[2017-04-24] MEDS: PIPERACIL-TAZO 2.25 GM PREMIX 50 ML IV SCH (08:26)
[2017-04-24] MEDS: SENNOSIDES SYRUP 8.8 MG/5 ML CUP PO SCH (09:00)
[2017-04-24] MEDS: DOCUSATE SODIUM 100 MG/10 ML UDC PO SCH (09:00)
[2017-04-24] MEDS: TAMSULOSIN HCL 0.4 MG CAP PO SCH (09:00)
[2017-04-24] MEDS: hydrALAZINE HCL 25 MG TAB PO SCH ×2 (09:59→12:24)
[2017-04-24] MEDS: SODIUM CHLORIDE 0.9% FLUSH 10 ML FLUSH IV FLUSH SCH (09:59)
[2017-04-24] MEDS: FINASTERIDE 5 MG TAB PO SCH (09:59)
[2017-04-24] MEDS: LANSOPRAZOLE SOLUTAB 30 MG TAB NG SCH (09:59)
[2017-04-24] MEDS: INSULIN DETEMIR 100 UNITS/ML VIAL SQ SCH (10:00)
--- NOTE | 2017-04-24 10:19 | HHI.CCPN ---
Subjective Remarks/Hospital Course 76 y/o man developed a persistent nose bleed this morning after dialysis. In ED his INR was > 13 and he received Kcentra for warfarin reversal (permanent a-fib) . Due to airway problems from blood and hypovolemia he sustained a brief cardiopulmonary arrest in the [place] ED requiring intubation and ventilation. He was aggressively resuscitated by the staff at [facility] and transferred to [facility] for ongoing resuscitation. He arrived to the [facility] with BP 52/25 and pulse rate 44. Two units of type specific blood were administered and levophed initiated at 20 mics/min. A central line was placed revealing CVP < 5 while on positive pressure ventilation. Resuscitation is continuing. 04/11/17: Currently epistaxis is controlled. Patient is off Levophed, hypertensive. PRN hydralazine added. Patient continues to have coffee-ground output from the NG tube large amount. INR is 2.8 have added FFP 2 units and vitamin K stat. Repeat CBC and INR stat 04/12/17: Remains intubated but wakes up easily follows commands. Left upper extremity weaker. INR was 3.3 yesterday received 2 units FFP and vitamin K repeat INR pending. No further epistaxis and NGT output minimal 04/13/17: Extubated yesterday tolerating well. Blood cultures 4 out of 4 bottles positive for coag negative staph. ID consulted 2-D echo ordered. No further epistaxis reported. refused EGD 04/14/17: Protecting airway. 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 Intermittent confusion, but on my exam AOx3 04/15/17: More lethargic today, but wakes up and follows commands. Received morphine 2 mg at 8 AM. Getting hemodialysis today. Will reduce Morphine from 2 to 1 mg. Also WBC count is elevated, to 20.7 04/16/17: Patient remains lethargic encephalopathy, but wakes up remains oriented to person and place. WBC count slightly further elevated to 21.6. Currently on vancomycin and Zosyn. Azithromycin added by infectious diseases have changed to IV. Repeat swallow eval 04/17: Patient went to acute respiratory arrest likely secondary to hypoxia etiology likely aspiration. Please see CPR note. Copious amounts of brownish secretions for ET tube and central line placed emergently. Attempts to contact Aylin Avila [phone] unsuccessful 04/18: Afebrile. FiO2 down to 40%. Continues with some bloody secretions. ET tube. Tolerating tube feeds. Positive BM. requesting palliative care consultation. 04/19: Tolerated PSV trial yesterday. -3500 cc with hemodialysis. Afebrile. One bowel movement. CT abdomen/pelvis revealed large stool impaction rectum. 04/20: Currently afebrile. Hemodialysis scheduled for today. We will attempt PSV trial afterwards. Positive BM. FiO2 60% overnight currently at 40%. 04/21: Yesterday, mucus plugging left-sided. Bronchoscopy. Pneumothorax right sided post bronchoscopy. Chest tube placed. Currently on 40% FiO2. Looks much improved. Complaining of constipation. Subjective 04/22: Afebrile. Currently undergoing hemodialysis. Remains intermittently apneic on PSV trials. Arousable and follow commands. Currently down to 40% FiO2. Appears comfortable. 04/23: Pain control acceptable. Waiting for family to gather for extubation. He is grimacing and I will start him on a fentanyl gtt, supplement with morphine. 04/24: Pain control improved on fentanyl infusion. Supplemented with morphine for sedation as needed. Long talk with - she understands that we are probably just prolonging his natural , very appreciative of staff. Family is gathering. and children are in unanimous agreement that patient does not to continue living with the severe arthritis pain and hemodialysis presently part of his life. He has expressed repeatedly to the that he wants to due to his pain, discomfort, and multiple incurable medical problems. After his cardiac arrest and recent setbacks, he will not leave this hospital without mechanical ventilation or another type of respiratory support. Objective Vital Signs Date Time Temp Pulse Resp B/P (MAP) Pulse Ox O2 Delivery O2 Flow Rate FiO2 04/24/17 08:21 50 04/24/17 07:46 97 04/24/17 06:00 74 04/24/17 04:00 98.2 17 116/57 (76) 04/23/17 19:00 Mechanical Ventilator Intake and Output 04/24/17 04/24/17 04/25/17 08:00 16:00 00:00 Intake Total 695 ml Output Total 60 ml Balance 635 ml Result Diagram: 04/23/17 0600 04/23/17 0600 Imaging Last Impressions Chest X-Ray 04/22/17 0000 Signed Impressions: Service Date/Time: Saturday, April 22, 2017 11:06 - CONCLUSION: 1. Right chest tube remains present and may have been retracted slightly. No pneumothorax is visualized. 2. Volume loss at the right lung base. Willy Whitt MD Lower Extremity Ultrasound 04/18/17 0600 Signed Impressions: Service Date/Time: Tuesday, April 18, 2017 08:08 - CONCLUSION: 1. No sonographic evidence for lower extremity DVT. Cristobal Simpson MD Abdomen/Pelvis CT 04/18/17 0000 Signed Impressions: Service Date/Time: Tuesday, April 18, 2017 13:08 - CONCLUSION: Probable impaction with large bolus of stool in the rectum Scattered stool throughout the remainder of the colon Nasogastric tube across the GE junction There is no intra-abdominal abscess. Anthony Claros MD FACR Brain MRI 04/17/17 0000 Signed Impressions: Service Date/Time: Monday, April 17, 2017 16:21 - CONCLUSION: 1. Possible normal pressure hydrocephalus. Correlation with clinical findings is necessary. 2. No evidence of acute intracranial pathology. No masses are identified. Michael Bhatt MD Upper Extremity Ultrasound 04/14/17 0000 Signed Impressions: Service Date/Time: April 10:28 - CONCLUSION: Thrombus is identified within distal cephalic vein. Scottie Donovan MD Head CT 04/12/17 0000 Signed Impressions: Service Date/Time: Wednesday, April 12, 2017 16:08 - CONCLUSION: Chronic changes without hemorrhage mass effect. Scottie Donovan MD Objective Remarks Gen: 76-year-old male, critically ill currently resting in bed orotracheally intubated ENT: No epistaxis. No oropharyngeal edema. Neck: Stiff. Left IJ is clean dry and intact Lungs: Chest bilaterally. Coarse rhonchi. No wheezing. Right pigtail catheter intact -120 cc clear yellow overnight -40 cm H2O Heart: Irreg Irreg, 3/6 THIERRY, LSB. Neck veins not distended. Abdomen: Nondistended, quiet. No guarding. Multiple well-healed surgical scars. BS few. Extremities: Tepid, adequately perfused. Neuro: Moves all 4 extremity spontaneously/withdraws to noxious stimuli. Appears uncomfortable at times. Date of Insertion: Apr 17, 2017 Line: Central Venous Catheter Location: Internal, Jugular A/P Assessment and Plan Neuro/Psych: Acute toxic metabolic encephalopathy secondary to sepsis Bilateral cataracts OHKAY OWINGEH Currently off all sedation. Goal of RASS -0 - 1 Will hold gabapentin 100 mg 3 times a day/home medication for neuropathy. Check gabapentin level Metabolic encephalopathy most likely secondary to sepsis, possibly medication induced CT head on admission revealed no acute intracranial findings. Chronic changes Weakness of left upper extremity most likely related to arthritis and rotator cuff tendinitis- MRI brain 04/17 revealed possible normal pressure hydrocephalus. Asymptomatic from this aspect.. Respiratory Acute hypoxic respiratory failure likely secondary to aspiration Recurrent mucus plugging Right pneumothorax PRVC 15/550/1.3/ Ventilator bundle Albuterol/ipratropium aerosols every 6 hours with albuterol aerosols every 2 hours. Dyspnea Hypertonic saline aerosols every 6 hours to thin secretions Guaifenesin 400 mg every 8 hours mucolytic Spontaneous breathing trials when clinically indicated Follow-up chest x-ray revealed likely mucus plugging right main bronchus below the right upper lobe. Bronchoscopy performed revealed externally frontal mucosa. Thick brown/bloody Mucous plugging right bronchus distal to right upper lobe. - Extubated 04/12 protecting airway - reintubated 04/17 Right pigtail Chest tube -40 cm H2O with 120 cc overnight. CV PEA secondary to respiratory arrest secondary to aspiration resolved Atrial fibrillation Hypotension Dyslipidemia Currently off all vasopressors 2-D echocardiogram revealed EF 60-65%. Right atrium mildly dilated. Moderate MR/TR. PAP 50-60 mmHg Troponin peaked at 0.39. Currently 0.36 Remains in atrial fibrillation/flutter rates between 40 and 80 Currently on atorvastatin 10 mg daily/40 mg daily at home for dyslipidemia Discontinue furosemide 20 mg twice a day. No urine output 6 days Currently hydralazine 75 mg every 8 hours. GI Gastroesophageal reflux disease History of splenectomy Hypoalbuminemia Continue tube feeds with Nepro @ 45 cc an hour per nutrition's recommendations Lansoprazole 30 mg daily -Docusate sodium twice a day/senna twice daily for bowel regimen. BPH End-stage renal disease - hemodialysis Tuesday/Tuesday/Tuesday - Monitor UO. ESRD on HD, getting hemodialysis today - Renal - Dr. Maria Continue tamsulosin 0.4 mg daily and finasteride 5 mill grams daily. Unable to crush down NG tube currently No He. Bladder scan no urine Heme Epistaxis-resolved - Dr. Stewart followed Warfarin coagulopathy/toxicity - resolved Warfarin coagulopathy resolved post- Kcentra and DDAVP and 2U FFP and 10 mg vitamin K / Left cephalic vein superficial thrombosis Leukocytosis Normocytic anemia - admission with acute blood loss anemia Monitor CBC daily. Follow trends Currently with superficial thrombosis/no DVT prophylaxis or resumption of warfarin due to high risk of bleeding Follow-up on coags were elevated at 2.6 his Hernandez received vitamin K 10 mg IV and FFP 2 units. Recheck in a.m. ID: Staph epi bacteremia - 4 out of 4 bottles staph epi bacteremia-source probably dialysis access. Repeat blood culture 04/13 negative - 2-D echo- no vegetation. ID consult appreciated - Continue IV vancomycin, and piperacillin/tazobactam for pulmonary coverage - Repeat sputum culture FEN: Hypopotassemia Check PTH - elevated at 325 and calcitriol levels pending. Vitamin D levels 25 normal. Sevelamer 800 mg 3 times a day for hyperphosphatemia - switch Fosrenol for phosphate binder when medically indicated Replace electrolytes as clinically indicated Lines - Left SCV CVL 04/10-DC - Left IJ CVL 04/17 Overall impression: Ventilator dependent respiratory failure in debilitated elderly man. Apneic episodes even when not receiving analgesia. Appears more comfortable today on continuous fentanyl.. Marcos Gan MD Apr 24, 2017 10:19
--- NOTE | 2017-04-24 10:46 | HHI.PR ---
Subjective Remarks No events overnight. Patient remains intubated and sedated. Afebrile. Objective Vital Signs Vital Signs Date Time Temp Pulse Resp B/P (MAP) Pulse Ox O2 Delivery O2 Flow Rate FiO2 04/24/17 08:21 50 04/24/17 07:46 97 50 04/24/17 06:00 74 04/24/17 04:20 97 50 04/24/17 04:00 50 04/24/17 04:00 98.2 64 17 116/57 (76) 97 04/24/17 04:00 63 04/24/17 02:00 61 04/24/17 01:20 98 50 04/24/17 00:00 50 04/24/17 00:00 67 04/24/17 00:00 98.6 67 11 132/61 (84) 97 04/23/17 22:00 68 04/23/17 20:14 97 50 04/23/17 20:00 66 04/23/17 20:00 99.4 66 10 137/63 (87) 98 04/23/17 20:00 50 04/23/17 19:00 92 Mechanical Ventilator 50 04/23/17 18:00 64 04/23/17 16:00 74 04/23/17 16:00 50 04/23/17 15:07 94 50 04/23/17 15:00 100 04/23/17 14:00 68 04/23/17 12:28 95 45 04/23/17 12:00 45 04/23/17 12:00 70 04/23/17 12:00 98.3 70 11 138/62 (87) 94 I/O 04/23/17 04/23/17 04/23/17 04/24/17 04/24/17 04/24/17 07:00 15:00 23:00 07:00 15:00 23:00 Intake Total 650 ml 50 ml 945 ml 695 ml Output Total 50 ml 60 ml 60 ml Balance 600 ml 50 ml 885 ml 635 ml IV Total 50 ml 239 ml Tube Feeding 500 ml 506 ml Autotransfusion 495 ml Other 150 ml 200 ml 200 ml Output Urine Total 0 ml 0 ml Chest Tube Drainage Total 50 ml 60 ml 60 ml # Bowel Movements 0 1 2 Result Diagram: 04/23/17 0604/23/17 06 Other Results Last Impressions Chest X-Ray 04/24/17 0600 Signed Impressions: Service Date/Time: Monday, April 24, 2017 04:04 - CONCLUSION: No significant interval change. Tiny pneumothorax in the right costophrenic angle Warren Pelaez MD Lower Extremity Ultrasound 04/18/17 0600 Signed Impressions: Service Date/Time: Tuesday, April 18, 2017 08:08 - CONCLUSION: 1. No sonographic evidence for lower extremity DVT. Cristobal Simpson MD Abdomen/Pelvis CT 04/18/17 0000 Signed Impressions: Service Date/Time: Tuesday, April 18, 2017 13:08 - CONCLUSION: Probable impaction with large bolus of stool in the rectum Scattered stool throughout the remainder of the colon Nasogastric tube across the GE junction There is no intra-abdominal abscess. Anthony Claros MD FACR Brain MRI 04/17/17 0000 Signed Impressions: Service Date/Time: Monday, April 17, 2017 16:21 - CONCLUSION: 1. Possible normal pressure hydrocephalus. Correlation with clinical findings is necessary. 2. No evidence of acute intracranial pathology. No masses are identified. Michael Bhatt MD Upper Extremity Ultrasound 04/14/17 0000 Signed Impressions: Service Date/Time: April 10:28 - CONCLUSION: Thrombus is identified within distal cephalic vein. Scottie Donovan MD Head CT 04/12/17 0000 Signed Impressions: Service Date/Time: Wednesday, April 12, 2017 16:08 - CONCLUSION: Chronic changes without hemorrhage mass effect. Scottie Donovan MD Objective Remarks GENERAL: Patient is 76 yo intubated and sedated SKIN: Warm and dry. HEAD: Normocephalic. EYES: No scleral icterus. No injection or drainage. NECK: Supple, trachea midline. No JVD or lymphadenopathy. CARDIOVASCULAR: Regular rate and rhythm without murmurs, gallops, or rubs. RESPIRATORY: Breath sounds equal bilaterally. No accessory muscle use. GASTROINTESTINAL: Abdomen soft, non-tender, nondistended. MUSCULOSKELETAL: No cyanosis, or edema. Neuro: intubated A/P Assessment and Plan 1. VDRF 2. Small right pneumothorax 3. Atrial fibrillation and CHF 4. End-stage renal disease on dialysis. 5. s/p PEA arrest 6. Anemia. PLAN Continue with vent support keep sat >92% Bronchodilators, ICU vent bundle. SBT daily as nannette. Fentanyl infusion for sedation. Daily sedation vacation. CXR today tiny PTX in right costophrenic angle, CT is in place(monitor CT drainage) Continue with abx per ID ( Vanco, Zosyn)monitor for signs of infections ( fever , WBC) s/p bronch 04/20. .NGTD Monitor renal function, HD per renal. On Epogen with HD Not on DVT prophylaxis due to high risk of bleeding. Continue treatment plan Guy Martinez MD Apr 24, 2017 10:46
[2017-04-24] MEDS: MORPHINE SULFATE 2 MG/ML INJ IV PUSH PRN ×2 (12:24→14:33)
[2017-04-24] MEDS ORDERED: HYOSCYAMINE 0.125 MG TAB PO PRN (13:15)
[2017-04-24] MEDS ORDERED: LORazepam 2 MG/ML VIAL IV PUSH ONE (13:15)
--- NOTE | 2017-04-24 16:18 | DEATH SUM ---
Summary Demographics Date Pronounced : Apr 24, 2017 Time Of : 16:12 Preliminary Cause of : Other Marcos Gan MD Apr 24, 2017 16:18
--- NOTE | 2017-04-24 16:25 | HHI.DS ---
Discharge Summary Admission Date Apr 10, 2017 at 13:12 Discharge Date: Apr 24, 2017 Admitting Diagnosis epistaxis, coagulopathy, Coumadin toxicity, cardiopulmonary arrest (1) Cardiopulmonary arrest ICD Code: I46.9 - Cardiac arrest, cause unspecified Diagnosis: Principal Status: Acute (2) Epistaxis ICD Code: R04.0 - Epistaxis Diagnosis: Principal Status: Resolved (3) Coumadin toxicity ICD Code: T45.511A - Poisoning by anticoagulants, accidental (unintentional), initial encounter Diagnosis: Principal Status: Resolved (4) Hypovolemic shock ICD Code: R57.1 - Hypovolemic shock Diagnosis: Principal (5) ESRD (end stage renal disease) on dialysis ICD Code: N18.6 - End stage renal disease; Z99.2 - Dependence on renal dialysis Diagnosis: Secondary Status: Chronic (6) Respiratory failure ICD Code: J96.90 - Respiratory failure, unspecified, unspecified whether with hypoxia or hypercapnia Diagnosis: Principal (7) Pain ICD Code: R52 - Pain, unspecified Diagnosis: Secondary Brief History 76 y/o man developed a persistent nose bleed this morning after dialysis. In ED his INR was > 13 and he received Kcentra for warfarin reversal (permanent a-fib) . Due to airway problems from blood and hypovolemia he sustained a brief cardiopulmonary arrest in the [place] ED requiring intubation and ventilation. He was aggressively resuscitated by the staff at [facility] and transferred to [facility] [place] for ongoing resuscitation. He arrived to the [facility] with BP 52/25 and pulse rate 44. Two units of type specific blood were administered and levophed initiated at 20 mics/min. A central line was placed revealing CVP < 5 while on positive pressure ventilation. Resuscitation is continuing. CBC/BMP: 04/23/17 0600 04/23/17 0600 Significant Findings Laboratory Tests Test 04/22/17 06:05 04/22/17 21:15 04/22/17 23:15 04/23/17 06:00 White Blood Count 19.3 TH/MM3 (4.0-11.0) 20.0 TH/MM3 (4.0-11.0) Red Blood Count 2.32 MIL/MM3 (4.50-5.90) 2.47 MIL/MM3 (4.50-5.90) Hemoglobin 7.4 GM/DL (13.0-17.0) 7.8 GM/DL (13.0-17.0) Hematocrit 23.0 % (39.0-51.0) 24.9 % (39.0-51.0) Blood Urea Nitrogen 47 MG/DL (7-18) 35 MG/DL (7-18) Creatinine 3.52 MG/DL (0.60-1.30) 2.88 MG/DL (0.60-1.30) Albumin 1.6 GM/DL (3.4-5.0) 1.9 GM/DL (3.4-5.0) Estimat Glomerular Filtration Rate 17 ML/MIN (>89) 21 ML/MIN (>89) Blood Gas HCO3 32 mmol/L (22-26) 33 mmol/L (22-26) Blood Gas Base Excess 8.7 mmol/L (-2-2) 8.7 mmol/L (-2-2) Arterial Blood pH 7.55 (7.380-7.420) 7.48 (7.380-7.420) Arterial Blood Partial Pressure CO2 36 mmHg (38-42) 45 mmHg (38-42) Arterial Blood Partial Pressure O2 129 mmHg (61-120) 221 mmHg (61-120) Arterial Blood Oxygen Content 11.0 Vol % (12.0-20.0) 10.6 Vol % (12.0-20.0) Blood Gas Hemoglobin 7.9 G/DL (12.0-16.0) 7.4 G/DL (12.0-16.0) Mean Corpuscular Volume 100.6 FL (80.0-100.0) Mean Corpuscular Hemoglobin Concent 31.6 % (32.0-36.0) Random Glucose 66 MG/DL (74-106) Carbon Dioxide Level 32.8 MEQ/L (21.0-32.0) Imaging Head CT, Brain MRI, CXRs. PE at Discharge . Transfer Summary After discussions with during the week the family gathered at the bedside on Tuesday April 11, 2017 and elected to withdraw artificial support and allow the patient a natural . Two physicians signed exhibits B & C, documenting the terminal course of the patient's disease process. The patient at 1612 hours on 04/24/17 with the family in attendance. Hospital Course 76 y/o man developed a persistent nose bleed this morning after dialysis. In ED his INR was > 13 and he received Kcentra for warfarin reversal (permanent a-fib) . Due to airway problems from blood and hypovolemia he sustained a brief cardiopulmonary arrest in the [place] ED requiring intubation and ventilation. He was aggressively resuscitated by the staff at [facility] and transferred to [facility] [place] for ongoing resuscitation. He arrived to the [facility] with BP 52/25 and pulse rate 44. Two units of type specific blood were administered and levophed initiated at 20 mics/min. A central line was placed revealing CVP < 5 while on positive pressure ventilation. Resuscitation is continuing. 04/11/17: Currently epistaxis is controlled. Patient is off Levophed, hypertensive. PRN hydralazine added. Patient continues to have coffee-ground output from the NG tube large amount. INR is 2.8 have added FFP 2 units and vitamin K stat. Repeat CBC and INR stat 04/12/17: Remains intubated but wakes up easily follows commands. Left upper extremity weaker. INR was 3.3 yesterday received 2 units FFP and vitamin K repeat INR pending. No further epistaxis and NGT output minimal 04/13/17: Extubated yesterday tolerating well. Blood cultures 4 out of 4 bottles positive for coag negative staph. ID consulted 2-D echo ordered. No further epistaxis reported. refused EGD 04/14/17: Protecting airway. 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 Intermittent confusion, but on my exam AOx3 04/15/17: More lethargic today, but wakes up and follows commands. Received morphine 2 mg at 8 AM. Getting hemodialysis today. Will reduce Morphine from 2 to 1 mg. Also WBC count is elevated, to 20.7 04/16/17: Patient remains lethargic encephalopathy, but wakes up remains oriented to person and place. WBC count slightly further elevated to 21.6. Currently on vancomycin and Zosyn. Azithromycin added by infectious diseases have changed to IV. Repeat swallow eval 04/17: Patient went to acute respiratory arrest likely secondary to hypoxia etiology likely aspiration. Please see CPR note. Copious amounts of brownish secretions for ET tube and central line placed emergently. Attempts to contact Aylin Avila [phone] unsuccessful 04/18: Afebrile. FiO2 down to 40%. Continues with some bloody secretions. ET tube. Tolerating tube feeds. Positive BM. requesting palliative care consultation. 04/19: Tolerated PSV trial yesterday. -3500 cc with hemodialysis. Afebrile. One bowel movement. CT abdomen/pelvis revealed large stool impaction rectum. 04/20: Currently afebrile. Hemodialysis scheduled for today. We will attempt PSV trial afterwards. Positive BM. FiO2 60% overnight currently at 40%. 04/21: Yesterday, mucus plugging left-sided. Bronchoscopy. Pneumothorax right sided post bronchoscopy. Chest tube placed. Currently on 40% FiO2. Looks much improved. Complaining of constipation. Subjective 04/22: Afebrile. Currently undergoing hemodialysis. Remains intermittently apneic on PSV trials. Arousable and follow commands. Currently down to 40% FiO2. Appears comfortable. 04/23: Pain control acceptable. Waiting for family to gather for extubation. He is grimacing and I will start him on a fentanyl gtt, supplement with morphine. 04/24: Pain control improved on fentanyl infusion. Supplemented with morphine for sedation as needed. Long talk with - she understands that we are probably just prolonging his natural , very appreciative of staff. Family is gathering. and children are in unanimous agreement that patient does not to continue living with the severe arthritis pain and hemodialysis presently part of his life. He has expressed repeatedly to the that he wants to due to his pain, discomfort, and multiple incurable medical problems. After his cardiac arrest and recent setbacks, he will not leave this hospital without mechanical ventilation or another type of respiratory support. Pt Condition on Discharge: Deteriorating Discharge Instructions Speech Therapy-Diet Recommends: Other Marcos Gan MD Apr 24, 2017 16:25
== END 2017-04-24 17:45 | disposition expired | DRG 981 ==
LOC: PHED 11:51 → PHEDA 13:12 → N03A 15:34
PROVIDERS: ADMIT Emergency Medicine; ATTEND Emergency Medicine
PROC: 2Y41X5Z Packing of Nasal Region using Packing Material (ICD-10-PCS; principal; 2017-04-10)
PROC: 5A1945Z Respiratory Ventilation, 24-96 Consecutive Hours (ICD-10-PCS; 2017-04-10)
PROC: 0T9B70Z Drainage of Bladder with Drainage Device, Via Natural or Artificial Opening (ICD-10-PCS; 2017-04-10)
PROC: 0BH17EZ Insertion of Endotracheal Airway into Trachea, Via Natural or Artificial Opening (ICD-10-PCS; 2017-04-10)
PROC: 05H633Z Insertion of Infusion Device into Left Subclavian Vein, Percutaneous Approach (ICD-10-PCS; 2017-04-10)
PROC: 30233K1 Transfusion of Nonautologous Frozen Plasma into Peripheral Vein, Percutaneous Approach (ICD-10-PCS; 2017-04-11)
PROC: 30233N1 Transfusion of Nonautologous Red Blood Cells into Peripheral Vein, Percutaneous Approach (ICD-10-PCS; 2017-04-11)
PROC: 5A1D70Z Performance of Urinary Filtration, Intermittent, Less than 6 Hours Per Day (ICD-10-PCS; 2017-04-13)
PROC: 0B9M8ZZ Drainage of Bilateral Lungs, Via Natural or Artificial Opening Endoscopic (ICD-10-PCS; 2017-04-17)
PROC: 5A1955Z Respiratory Ventilation, Greater than 96 Consecutive Hours (ICD-10-PCS; 2017-04-17)
PROC: 05HN33Z Insertion of Infusion Device into Left Internal Jugular Vein, Percutaneous Approach (ICD-10-PCS; 2017-04-17)
PROC: 0BH17EZ Insertion of Endotracheal Airway into Trachea, Via Natural or Artificial Opening (ICD-10-PCS; 2017-04-17)
PROC: 5A12012 Performance of Cardiac Output, Single, Manual (ICD-10-PCS; 2017-04-17)
PROC: 0BCB8ZZ Extirpation of Matter from Left Lower Lobe Bronchus, Via Natural or Artificial Opening Endoscopic (ICD-10-PCS; 2017-04-17)
PROC: 0BC48ZZ Extirpation of Matter from Right Upper Lobe Bronchus, Via Natural or Artificial Opening Endoscopic (ICD-10-PCS; 2017-04-17)
PROC: 0BC88ZZ Extirpation of Matter from Left Upper Lobe Bronchus, Via Natural or Artificial Opening Endoscopic (ICD-10-PCS; 2017-04-17)
PROC: 0BC58ZZ Extirpation of Matter from Right Middle Lobe Bronchus, Via Natural or Artificial Opening Endoscopic (ICD-10-PCS; 2017-04-17)
PROC: 0W9930Z Drainage of Right Pleural Cavity with Drainage Device, Percutaneous Approach (ICD-10-PCS; 2017-04-20)
DX: I46.9 Cardiac arrest, cause unspecified (principal); N18.6 End stage renal disease; J96.01 Acute respiratory failure with hypoxia; J93.0 Spontaneous tension pneumothorax; I13.2 Hypertensive heart and chronic kidney disease with heart failure and with stage 5 chronic kidney disease, or end stage renal disease; A41.9 Sepsis, unspecified organism; G93.41 Metabolic encephalopathy; R57.8 Other shock; R57.1 Hypovolemic shock; J44.0 Chronic obstructive pulmonary disease with (acute) lower respiratory infection; J44.9 Chronic obstructive pulmonary disease, unspecified; J18.9 Pneumonia, unspecified organism; Z99.11 Dependence on respirator [ventilator] status; T17.590A Other foreign object in bronchus causing asphyxiation, initial encounter; D68.32 Hemorrhagic disorder due to extrinsic circulating anticoagulants; D62 Acute posthemorrhagic anemia; T17.890A Other foreign object in other parts of respiratory tract causing asphyxiation, initial encounter; K92.2 Gastrointestinal hemorrhage, unspecified; I82.612 Acute embolism and thrombosis of superficial veins of left upper extremity; E11.22 Type 2 diabetes mellitus with diabetic chronic kidney disease; R04.0 Epistaxis; T45.515A Adverse effect of anticoagulants, initial encounter; Y92.009 Unspecified place in unspecified non-institutional (private) residence as the place of occurrence of the external cause; I50.9 Heart failure, unspecified; M19.90 Unspecified osteoarthritis, unspecified site; K21.9 Gastro-esophageal reflux disease without esophagitis; M41.9 Scoliosis, unspecified; Z87.891 Personal history of nicotine dependence; I48.2 Chronic atrial fibrillation; R00.1 Bradycardia, unspecified; I25.10 Atherosclerotic heart disease of native coronary artery without angina pectoris; E78.5 Hyperlipidemia, unspecified; N40.0 Benign prostatic hyperplasia without lower urinary tract symptoms; Z85.528 Personal history of other malignant neoplasm of kidney; Z90.81 Acquired absence of spleen; D63.1 Anemia in chronic kidney disease; E87.6 Hypokalemia; E83.52 Hypercalcemia; E83.39 Other disorders of phosphorus metabolism; E88.09 Other disorders of plasma-protein metabolism, not elsewhere classified; M75.90 Shoulder lesion, unspecified, unspecified shoulder; Z53.29 Procedure and treatment not carried out because of patient's decision for other reasons; I34.0 Nonrheumatic mitral (valve) insufficiency; Z51.5 Encounter for palliative care; Z82.49 Family history of ischemic heart disease and other diseases of the circulatory system; Z84.89 Family history of other specified conditions; Z78.1 Physical restraint status; I48.92 Unspecified atrial flutter; R62.7 Adult failure to thrive; K56.41 Fecal impaction; G62.9 Polyneuropathy, unspecified; T17.900A Unspecified foreign body in respiratory tract, part unspecified causing asphyxiation, initial encounter; X58.XXXA Exposure to other specified factors, initial encounter; Z99.2 Dependence on renal dialysis; Z79.01 Long term (current) use of anticoagulants; Y93.89 Activity, other specified; Y92.239 Unspecified place in hospital as the place of occurrence of the external cause; R79.1 Abnormal coagulation profile; T45.511A Poisoning by anticoagulants, accidental (unintentional), initial encounter
CPT/HCPCS: 30901; 31500; 36430; 36556; 36600; 51702; 70450; 70551; 71010; 71045; 74176; 80048; 80053; 80061; 80069; 80202; 81001; 82306; 82330; 82397; 82550; 82652; 82728; 82805; 82947; 82948; 83540; 83550; 83605; 83690; 83735; 83970; 84100; 84165; 84443; 84478; 84484; 85007; 85014; 85018; 85025; 85027; 85384; 85610; 85730; 86403; 86850; 86900; 86901; 86920; 86927; 87015; 87040; 87070; 87077; 87086; 87102; 87116; 87186; 87205; 87206; 88112; 88305; 89051; 90935; 92950; 93005; 93306; 93970; 93971; 94002; 94003; 94640; 94664; 94667; 94668; 95819; 96365; 96374; 96375; C9113; C9132; J0171; J0360; J0456; J1756; J2060; J2250; J2270; J2370; J2543; J2597; J3010; J3370; J3430; J3475; J7030; J7050; J7613; P9016; P9017; Q4081; Q9963